=== PATIENT | male | born 1950 | race Caucasian/White ===

== ENCOUNTER → 2018-02-13 14:26 | Outpatient (CLI) | payer MEDICARE, SELFPAY ==
[2018-02-13 15:45] LABS: PSA,Total - Annual Screen 5.72 ng/mL (0.00-4.00)
== END ==
PROVIDERS: Family Provider Family Medicine; PCP Family Medicine; Referring Provider Nurse Practitioner Family; Visit Provider Nurse Practitioner Family
DX: Z12.5 Encounter for screening for malignant neoplasm of prostate (principal)
CPT/HCPCS: 36415; 84153; G0103

== ENCOUNTER → 2019-03-12 11:28 | Outpatient (CLI) | payer MEDICARE, SELFPAY ==
[2015-06-24 06:35] VITALS: BMI 33.7
[2019-03-12 13:28] LABS: Anion Gap 3 (5-15); BUN 18 mg/dL (7-18); BUN/Creat Ratio 16.8 RATIO (10-20); Calcium,Total 9.4 mg/dL (8.5-10.1); Chloride 106 mmol/L (98-107); Creatinine, Serum 1.07 mg/dL (0.70-1.30); EST Glomerular Filtration Rate 73 mL/min (>60); Est Glom Filt Rate - Afr Amer 88 mL/min (>60); Glucose 89 mg/dL (74-106); PSA,Total- Diagnostic 7.88 ng/mL (0.0-4.0); Potassium 4.1 mmol/L (3.5-5.1); Sodium Level 137 mmol/L (136-145)
== END ==
PROVIDERS: Family Provider Family Medicine; PCP Family Medicine; Referring Provider Urology; Visit Provider Urology
DX: N40.1 Benign prostatic hyperplasia with lower urinary tract symptoms (principal)
CPT/HCPCS: 36415; 80048; 84153

== ENCOUNTER → 2019-12-06 16:48 | Outpatient (CLI) | payer MEDICARE, SELFPAY ==
[2015-06-24 06:35] VITALS: BMI 33.7
== END ==
PROVIDERS: PCP Family Medicine; Referring Provider Nurse Practitioner Adult Health; Visit Provider Nurse Practitioner Adult Health
DX: R31.0 Gross hematuria (principal)
CPT/HCPCS: 87086

== ENCOUNTER → 2019-12-14 13:34 | Outpatient (CLI) | payer MEDICARE, SELFPAY ==
--- NOTE | 2019-12-14 13:42 | CT_ITS ---
STUDY: CT ABDOMEN AND PELVIS WITH AND WITHOUT CONTRAST REASON FOR EXAM: Male, 69 years old. Gross hematuria for 2 weeks RADIATION DOSAGE (If Supplied By Facility): CTDIvol = ( 25.83 ) mGy, DLP = ( 3972.41 ) mGycm TECHNIQUE: Transaxial images were obtained from the dome of the diaphragm to the symphysis pubis without oral contrast. IV 100mL Isovue-300 was administered. Sagittal and coronal images were reconstructed. Individualized dose optimization techniques were used for this CT. COMPARISON: None. FINDINGS: Kidneys and ureters are normal. There are no urinary calculi. There are minimal left renal central sinus cysts, these are benign and require no further clinical attention. Perirenal space is normal. There is mild bladder wall thickening, possibly in part due to nondistention. The prostate is heterogeneous and nodular. Perivesical spaces clear. Remainder of abdominal solid organs and bowel are normal. CT/CT Abd/Pelvis W/WO Contrast IMPRESSION: 1. Unremarkable upper urinary tract. 2. Mild bladder wall thickening. 3. Unremarkable abdomen. Electronically Signed: Edward Valderrama, at 14:31 EDT Tel , Service support ,
[2019-12-14 13:51] LABS: CREATININE FINGERSTICK 0.6 mg/dL (0.70-1.30)
== END ==
PROVIDERS: PCP Nurse Practitioner Family; Referring Provider Nurse Practitioner Adult Health; Visit Provider Nurse Practitioner Adult Health
DX: R31.0 Gross hematuria (principal)
CPT/HCPCS: 74178; Q9967

== ENCOUNTER → 2019-12-27 16:24 | Outpatient (CLI) | payer MEDICARE, SELFPAY ==
[2015-06-24 06:35] VITALS: BMI 33.7
--- NOTE | 2019-12-27 | FLU_PTH ---
PATIENT: RAMIRO LALA LOC: [facility] U#:[id number] AGE/SX: 75/M ROOM: RE12/27/[address]: Dr. Aneudy Santiago MD : 1950 BED: DIS: SPEC #: [id number] RECD: 12/27/19 15:00 STATUS: PAIGE BARBARA #: [id number] JOHANN: 12/27/19 00:[address]: Aneudy Santiago DEPT: CYTOLOGY RECD BY: Alla Aguayo ENTERED: 12/28/19 07:34 SP TYPE: Fluid OTHR DR: Aissatou Webster, INFORMATION ASSURANCE-C Tissues: Urine Procedures: Special Stain Group II Cytospin Fluid HEADER OPERATION: Not noted PRE-OP DIAGNOSIS: Gross hematuria TISSUE SUBMITTED: Urine for cytology DIAGNOSIS CYTOLOGY Urine for cytology (cytospin): Mildly atypical urothelial cells noted. SJ:santana 12/28/19 CYTOLOGY STUDY Slides are reviewed. CYTOLOGY GROSS Received is 35 ml of cloudy yellow fluid labeled with the patient's name and and designated per the requisition as urine. Submitted for cytology preparation. / santana 12/28/19 TC:3 CPT: 37250
[2019-12-27 17:00] LABS: Cytology, Body Fluid / CSF SEE PATHOLOGY REPORT
== END ==
PROVIDERS: PCP Nurse Practitioner Family; Referring Provider Urology; Visit Provider Urology
DX: R31.0 Gross hematuria (principal)
CPT/HCPCS: 88108; 88313

== ENCOUNTER → 2020-12-25 10:36 | Outpatient (CLI) | payer MEDICARE, SELFPAY | PROVIDERS: PCP Nurse Practitioner Family; Referring Provider Nurse Practitioner Adult Health; Visit Provider Nurse Practitioner Adult Health | DX: R97.20 Elevated prostate specific antigen [PSA] (principal); Z12.5 Encounter for screening for malignant neoplasm of prostate | CPT/HCPCS: 36415; 84153; G0103 ==

== ENCOUNTER → 2021-01-06 18:09 | Outpatient (CLI) | payer MEDICARE, SELFPAY ==
--- NOTE | 2021-01-06 | IMM_PTH ---
PATIENT: RAMIRO LALA LOC: [facility] U#:[id number] AGE/SX: 75/M ROOM: RE01/06/[address]: Dr. Aneudy Santiago MD : 1950 BED: DIS: SPEC #: [id number] RECD: 01/08/21 15:05 STATUS: PAIGE BARBARA #: [id number] JOHANN: 01/06/21 00:[address]: Aneudy Santiago DEPT: IMMUNOHISTOCHEMISTRY RECD BY: Nancy Graham ENTERED: 01/08/21 15:05 SP TYPE: IMMUNO OTHR DR: Aissatou Webster, MACHINE SIGN WRITER-C Tissues: A - PROSTATE RIGHT Procedures: P40 (add) 34BE12 (initial) PHYSICIAN & INSTITUTION [place] [id number] SPECIMEN INFORMATION: Tissue Source: A - Right prostate, apex, core biopsy Clinical Info: R97.20 Specimen Number: [id number] CPT code: 79722, 30269 METHODOLOGY: Deparaffinized sections of prefer/formalin-fixed tissue or PAP/DQ stained slides are incubated with monoclonal/polyclonal antibodies/oligonucleotide probes. Localization is made via biotin free immunoperoxidase method. Appropriate controls are performed and reacted as expected. Results on target cell population are indicated in the following table: RESULTS: ANTIBODY / CLONE RESULT Block A P40 (BC28) negative 34BE12 (34BE12) negative These tests were developed and their performance characteristics determined by [facility]. They may not have been cleared or approved by the U.S. Food and Drug Administration. The FDA has determined that such clearance or approval is not necessary. The above immunohistochemical/dualISH markers are ordered and reviewed by the Pathologist. INTERPRETATION: A. Right prostate, apex, core biopsy: Focal atypical small acinar proliferation. FRANCHESKA:santana 01/09/2021
--- NOTE | 2021-01-06 | PROSBIL_PTH ---
PATIENT: RAMIRO LALA LOC: [facility] U#:[id number] AGE/SX: 75/M ROOM: RE01/06/[address]: Dr. Aneudy Santiago MD : 1950 BED: DIS: SPEC #: [id number] RECD: 01/07/21 09:23 STATUS: PAIGE BARBARA #: [id number] JOHANN: 01/06/21 00:[address]: Aneudy Santiago DEPT: SURGICAL PATHOLOGY RECD BY: Maurice Pascual ENTERED: 01/07/21 09:24 SP TYPE: PROST BX MARY DR: Aissatou Webster, FARIBA-Gelacio Tissues: A - PROSTATE RIGHT B - PROSTATE RIGHT C - PROSTATE RIGHT D - PROSTATE LEFT E - PROSTATE LEFT F - PROSTATE LEFT Procedures: PROSTATE BX HEADER OPERATION: Prostate biopsy PRE-OP DIAGNOSIS: R97.20 TISSUE SUBMITTED: A - Right apex, B - Right mid, C - Right base, D - Left apex, E - Left mid, F - Left base MICROSCOPIC DIAGNOSIS A. Right prostate, apex, core biopsy: Focal atypical small acinar proliferation (SABIHA). Focal mild chronic inflammation and minimal acute inflammation. Focal calcifications. See comment. B. Right prostate, mid, core biopsy: Prostatic tissue, negative for malignancy. Moderate chronic inflammation. C. Right prostate, base, core biopsy: Prostatic tissue, negative for malignancy. Moderate chronic inflammation. D. Left prostate, apex, core biopsy: Prostatic tissue, predominantly stromal tissue, negative for malignancy. Focal mild chronic inflammation and minimal acute inflammation. E. Left prostate, mid, core biopsy: Prostatic tissue, negative for malignancy. Focal mild acute and chronic inflammation. Focal calcifications. See comment. F. Left prostate, base, core biopsy: Prostatic tissue, negative for malignancy. Moderate chronic inflammation and mild acute inflammation. Focal calcifications. See comment. SJ:rg 01/08/2021 COMMENT A. Immunohistochemistry ([id number]) supports the above diagnosis. A,E & F. Calcifications may represent prostatic concretions. Clinical correlation and appropriate follow up are necessary. MICROSCOPIC DESCRIPTION Slides are reviewed. GROSS DESCRIPTION A - Received is one container designated prostate, right apex. The specimen consists of two elongated fragments of light stevens-white soft tissue each measuring 0.8 cm in length and 0.1 cm in diameter. The specimen is totally submitted in one cassette. B - Received is one container designated prostate, right mid. The specimen consists of two elongated fragments of light stevens-white soft tissue each measuring 1 cm in length and 0.1 cm in diameter. The specimen is totally submitted in one cassette. C - Received is one container designated prostate, right base. The specimen consists of two elongated fragments of light stevens-white soft tissue each measuring 1.2 cm in length and 0.1 cm in diameter. The specimen is totally submitted in one cassette. D - Received is one container designated prostate, left apex. The specimen consists of two elongated fragments of light stevens-white soft tissue each measuring 0.2 cm in length and 0.1 cm in diameter. The specimen is totally submitted in one cassette. E - Received is one container designated prostate, left mid. The specimen consists of two elongated fragments of light stevens-white soft tissue measuring 0.5 and 1 cm in length and 0.1 cm in diameter. The specimen is totally submitted in one cassette. F - Received is one container designated prostate, left base. The specimen consists of two elongated fragments of light stevens-white soft tissue measuring 1 and 1.5 cm in length and 0.1 cm in diameter. The specimen is totally submitted in one cassette. / SJ:rg 01/07/21 TC:3 CPT: G0146
== END ==
PROVIDERS: PCP Nurse Practitioner Family; Visit Provider Urology
DX: R97.20 Elevated prostate specific antigen [PSA] (principal)
CPT/HCPCS: 88305; 88341; 88342; G0416

== ENCOUNTER → 2021-07-21 | Outpatient (CLI) | payer MEDICARE, SELFPAY | END | disposition home or self-care (01) | LOC: LAB 08:57 | PROVIDERS: PCP Nurse Practitioner Family; Referring Provider Urology; Visit Provider Urology | DX: R97.20 Elevated prostate specific antigen [PSA] (principal) | CPT/HCPCS: 36415; 84153 ==

== ENCOUNTER → 2021-08-05 | Outpatient (CLI) | payer MEDICARE, SELFPAY ==
--- NOTE | 2021-08-05 07:29 | MRI_ITS ---
STUDY: MR PELVIS WITH T WITHOUT CONTRAST REASON FOR EXAM: Male, 71 years old. ELEVATED PROSTATE SPECIFIC ANTIGEN TECHNIQUE: Standardized fat and water weighted pulse sequences were obtained in all 3 orthogonal planes, pre-and post contrast administration. WITH T WITHOUT 20cc dotarem contrast material was administered intravenously for the contrast portion of the examination. COMPARISON: ct Dec 14 2019 1:52pm FINDINGS: Normal urinary bladder. There are prostatic calcifications. Prostate gland: The anterior fibromuscular stroma and central zone appear heterogeneous. The central gland demonstrates heterogeneous signal characteristics. Enlarged prostate gland with a multi nodular appearance (BPH). There is a low T2 signal mass along the left peripheral zone with extension into the transitional zone. It is 21 x 24 mm. Se 5 IM: 13. This has high DWI signal. Se 7 IM: 70. It has a lobulated appearance and does NOT have a smooth border. There is extra norma extension to the left as noted on the T2 images 16 and DWI image 43. There is diffuse enhancement on Se 12 IM: 13. Lesion has low ADC signal. Se 701 IM:21. Rectum is unremarkable. Levator ani muscle is not disrupted. The distal urethra is surrounded by the low T2 signal intensity muscle which is the external urethral sphincter as noted on the coronal images. The penile bulb is embraced by an intact inferomedial levator ani muscle. Normal visualized neurovascular bundles. There is no pelvic fluid. There is no pelvic mass lesion or lymphadenopathy. Normal visualized pelvic arteries. Normal osseous structures. Normal abdominal wall. MRI/Pelvis W/WO Contrast IMPRESSION: There is a prostate mass of the left peripheral zone with extension into the transitional zone. There is extra norma extension to the left. Assessment: PIRADS 5 - Very high. Clinically significant cancer is highly likely to be present. Electronically Signed: Mauricio Rayo MD at 16:30 EDT ,
[2021-08-05 07:46] LABS: CREATININE FINGERSTICK < 0.9 mg/dL (0.70-1.30); EGFR FINGERSTICK > 60.0000 mL/min (>60)
== END | disposition home or self-care (01) ==
PROVIDERS: PCP Nurse Practitioner Family; Referring Provider Urology; Visit Provider Urology
DX: R97.20 Elevated prostate specific antigen [PSA] (principal)
CPT/HCPCS: 72197; A9575

== ENCOUNTER → 2021-08-13 | Outpatient (CLI) | payer MEDICARE, SELFPAY ==
--- NOTE | 2021-08-13 | PROSB_PTH ---
PATIENT: RAMIRO LALA LOC: [facility] U#:[id number] AGE/SX: 71/M ROOM: RE08/13/[address]: Dr. Aneudy Santiago MD : 1950 BED: DIS: 08/13/2021 SPEC #: [id number] RECD: 08/13/21 16:34 STATUS: PAIGE JIMENEZ #: [id number] JOHANN: 08/13/21 00:[address]: Aneudy Santiago DEPT: SURGICAL PATHOLOGY RECD BY: Maurice Pascual ENTERED: 08/14/21 08:15 SP TYPE: PROST BX OTHR DR: Aissatou Webster, COMPLIANCE EXAMINER-C Tissues: A - PROSTATE BIOPSY B - PROSTATE BIOPSY C - PROSTATE BIOPSY Procedures: Surgery Specimen Level IV HEADER OPERATION: Prostate biopsy PRE-OP DIAGNOSIS: Elevated PSA TISSUE SUBMITTED: A - Left apex, B - Left mid, C - Left base MICROSCOPIC DIAGNOSIS A. Left prostate, apex, core biopsy: Prostatic adenocarcinoma. [place] grade: 3+3=6 Number of cores involved: 1/3 Proportion of tissue involved: 30% Perineural invasion: Not identified. Greatest tumor length: 0.5 cm B. Left prostate, mid, core biopsy: Prostatic adenocarcinoma. [place] grade: 3+4=7 Number of cores involved: 3/4 Proportion of tissue involved: 50-60% Perineural invasion: present, focal Greatest tumor length: 1.3 cm Mild acute and chronic inflammation and focal calcification. C. Left prostate, base, core biopsy: Prostatic adenocarcinoma. [place] grade: 3+4=7 Number of cores involved: 1/2 Proportion of tissue involved: 30% Perineural invasion: Not identified. Greatest tumor length: 0.7 cm Focal acute and chronic inflammation and calcification. SJ:santana 08/17/2021 COMMENT Please make reference to previous specimen ([id number]) right prostate, apex, core biopsy with diagnosis of ?focal atypical small acinar proliferation? and right prostate, mid and base and left prostate, apex, mid and base core biopsies with diagnosis of ?prostatic tissue, negative for malignancy.? Case has been reviewed in consultation with Dr. Mabry who concurs with the above diagnosis. IDC:AM MICROSCOPIC DESCRIPTION Slides are reviewed. GROSS DESCRIPTION A - Received is one container designated prostate, left apex. The specimen consists of three elongated fragments of stevens soft tissue measuring 0.5 to 0.6 cm in length and 0.1 cm in diameter. The specimen is totally submitted in one cassette. B - Received is one container designated prostate, left mid. The specimen consists of four elongated fragments of stevens soft tissue measuring 1 to 1.5 cm in length and 0.1 cm in diameter. The specimen is totally submitted in one cassette. C - Received is one container designated prostate, left base. The specimen consists of two elongated fragments of stevens soft tissue measuring 1.6 and 1.8 cm in length and 0.1 cm in diameter. The specimen is totally submitted in one cassette. / SJ:rg 08/14/2021 TC:0 CPT: G0146
== END | disposition home or self-care (01) ==
LOC: LABSPEC 16:40
PROVIDERS: PCP Nurse Practitioner Family; Referring Provider Urology; Visit Provider Urology
DX: R97.20 Elevated prostate specific antigen [PSA] (principal)
CPT/HCPCS: 88305

== ENCOUNTER → 2021-09-02 | Outpatient (CLI) | payer MEDICARE, SELFPAY ==
--- NOTE | 2021-09-02 07:47 | NM_ITS ---
CLINICAL: Male, 71 years old. MALIGNANT NEOPLASM OF PROTASTE WHOLE BODY NUCLEAR BONE SCAN TECHNIQUE: Following the IV administration of 26.8 mCi of Tc MDP, whole body bone imaging was performed with a gamma camera following a three hour delay. COMPARISON STUDIES : NM - None. CR - Not available for review at this time. CT - Not available for review at this time. MR - Not available for review at this time. US - Not available for review at this time. FINDINGS: There is a normal concentration of radiopharmaceutical throughout the axial and appendicular skeletal system without either a focal decrease or increase in uptake. NM/Bone Scan Whole Body IMPRESSION: Normal whole body nuclear bone scan. Electronically Signed: Clement Rios MD at 16:41 EDT ,
== END | disposition home or self-care (01) ==
LOC: NM 07:45
PROVIDERS: PCP Nurse Practitioner Family; Referring Provider Urology; Visit Provider Urology
DX: C61 Malignant neoplasm of prostate (principal)
CPT/HCPCS: 78306; A9503

== ENCOUNTER → 2021-09-23 | Outpatient (CLI) | payer MEDICARE, SELFPAY ==
--- NOTE | 2021-09-23 06:50 | EKG12_ITS ---
Test Reason : PRE OP Blood Pressure : / mmHG Vent. Rate : 081 BPM Atrial Rate : 258 BPM P-R Int : 000 ms QRS Dur : 092 ms QT Int : 376 ms P-R-T Axes : 000 033 079 degrees QTc Int : 436 ms Atrial fibrillation Abnormal ECG Confirmed by TRAVIS NARVAEZ, FAVIAN ([id number]), proposal editor LIONEL BAILEY ([id number]) on 09/25/2021 8:01:54 AM Referred By: Aneudy Santiago Confirmed By:FAVIAN ROBLES MD
[2021-09-23 07:31] LABS: Hemoglobin 13.8 g/dL (13.0-16.5); Mean Corp Hgb Conc 32.1 g/dL (32-36); Mean Corpuscular Hgb 27.4 pg (27.0-32.0); Mean Corpuscular Volume 85.5 fL (80-94); Mean Platelet Vol. 11.9 fl (6.2-12.0); Platelet Count 186 K/mm3 (150-450); RBC Distribution Width CV 13.7 % (11.6-14.6); RBC Distribution Width SD 42.5 fl (35.1-43.9); Red Blood Count 5.03 M/mm3 (4.6-6.2); White Blood Count 5.5 K/mm3 (4.4-11.0)
== END | disposition home or self-care (01) ==
LOC: PAT 10-16 08:23
PROVIDERS: Anesthesiology; PCP Nurse Practitioner Family; Referring Provider Urology; Visit Provider Urology
DX: Z01.818 Encounter for other preprocedural examination (principal)
CPT/HCPCS: 36415; 85027; 86850; 86900; 86901; 93005

== ENCOUNTER → 2021-09-29 | Outpatient (CLI) | payer MEDICARE, SELFPAY ==
--- NOTE | 2021-09-29 10:40 | ECHOD_ITS ---
Reason For Study: ATRIAL FIB FLUTTER Procedure This was a 2D Doppler, Color Flow transthoracic echocardiogram. Exam performed in department. Left Ventricle Normal LV size. Left ventricular systolic function is normal. The estimated ejection fraction is 60 %. Unable to assess diastolic dysfunction. No regional wall motion abnormalities noted. Right Ventricle Normal RV size. Normal systolic function. Atria The left atrium is moderately enlarged. The right atrium is mildly enlarged. No doppler evidence for ASD. Mitral Valve There is no mitral annular calcification. Normal mitral valve. Moderate (2+) eccentric mitral valve insufficiency. Tricuspid Valve Normal tricuspid valve. Trivial tricuspid valve insufficiency. Unable to estimate RV systolic pressure due to insufficient tricuspid regurgitant envelope. Aortic Valve Trisinus/trileaflet aortic valve. Normal aortic valve. Trivial aortic valve insufficiency. Pulmonic Valve The pulmonic valve is not well visualized. Great Vessels Normal sized aortic root. Pericardium/Pleural No pericardial effusion. MMode/2D Measurements & Calculations LVIDd: 4.6 cm IVSd: 1.1 cm Ao root diam: 3.4 cm LVIDs: 3.7 cm LVPWd: 1.5 cm RVDd: 4.3 cm FS: 20.4 % LAV(MOD-sp4): 84.1 ml LVAd ap4: 35.9 cm2 SV(MOD-sp4): 81.7 ml LVLd ap4: 8.5 cm EDV(MOD-sp4): 126.9 ml EDV(sp4-el): 129.2 ml LVAs ap4: 18.8 cm2 LVLs ap4: 6.8 cm ESV(MOD-sp4): 45.2 ml ESV(sp4-el): 43.8 ml EF(MOD-sp4): 64.4 % EF(sp4-el): 66.1 % SV(sp4-el): 85.4 ml LA A4 area: 27.5 cm2 LA dimension(2D): 4.6 cm RA A4 area: 22.6 cm2 Doppler Measurements & Calculations MV E max wally: 85.8 cm/sec Ao V2 max: 101.1 cm/sec LV V1 max: 96.3 cm/sec Ao max P.1 mmHg LV V1 max P.7 mmHg Ao V2 mean: 74.8 cm/sec LV V1 mean P.3 mmHg Ao mean P.6 mmHg LV V1 mean: 72.2 cm/sec Ao V2 VTI: 20.4 cm LV V1 VTI: 20.2 cm MR max wally: 515.2 cm/sec PA V2 max: 77.5 cm/sec MR max P.2 mmHg PA V2 mean: 54.6 cm/sec ECHO/Echo Complete Interpretation Summary Left ventricular systolic function is normal. The estimated ejection fraction is 60 %. The left atrium is moderately enlarged. The right atrium is mildly enlarged. Moderate (2+) eccentric mitral valve insufficiency. Trivial tricuspid valve insufficiency. Trivial aortic valve insufficiency. Unable to estimate RV systolic pressure due to insufficient tricuspid regurgita nt envelope. Unable to assess diastolic dysfunction. Ordering Physician: Helio Lopez Referring Physician: Helio Lopez Performed By: Melba Vazquez RCS
== END | disposition home or self-care (01) ==
PROVIDERS: PCP Nurse Practitioner Family; Referring Provider Internal Medicine Cardiovascular Disease; Visit Provider Internal Medicine Cardiovascular Disease
DX: Z01.810 Encounter for preprocedural cardiovascular examination (principal); I48.91 Unspecified atrial fibrillation; R94.31 Abnormal electrocardiogram [ECG] [EKG]
CPT/HCPCS: 93306

== ENCOUNTER → 2021-10-15 | Outpatient (CLI) | payer MEDICARE, SELFPAY ==
--- NOTE | 2021-10-15 18:15 | STRESSREP_ITS ---
Stress Test Report Date: 10-15-2021 Procedure: Exercise tolerance test Indications: Atrial fibrillation; PVCs; hypertension; preoperative cardiovascular evaluation Consent: Per the patient Procedure: The patient exercised on a Ramírez protocol for 7 minutes and 15 seconds completing Stage II and 1 minute and 15 seconds of Stage III achieving a peak heart rate of 184 bpm (124% predicted maximal heart rate) with a peak blood pressure 190/100 mmHg and a peak MET capacity of approximately 9 MET's. The baseline ECG demonstrated atrial fibrillation; PVCs. The peak exercise ECG demonstrated continued atrial fibrillation with no obvious ECG changes. There were occasional PVCs pretest, during exercise, and recovery. The functional capacity was considered good. The patient had no complaint of chest discomfort during exercise or recovery. The examination was discontinued secondary to dyspnea. Impression: 1. Technically adequate (percent predicted maximal heart rate greater than 85%) exercise tolerance test 2. Peak exercise ECG with continued atrial fibrillation with no obvious ECG changes 3. There were occasional PVCs pretest, during exercise, and recovery This note was generated with [employer] dictation software. It may contain incorrect words, spelling, and punctuation that were not noted in checking the note before signing.
== END | disposition home or self-care (01) ==
LOC: CVS 08:06
PROVIDERS: PCP Nurse Practitioner Family; Referring Provider Internal Medicine Cardiovascular Disease; Visit Provider Internal Medicine Cardiovascular Disease
DX: Z01.810 Encounter for preprocedural cardiovascular examination (principal); I48.91 Unspecified atrial fibrillation; I49.3 Ventricular premature depolarization; I10 Essential (primary) hypertension; R94.31 Abnormal electrocardiogram [ECG] [EKG]
CPT/HCPCS: 93017; 93225; 93226

== ENCOUNTER 2021-12-18 07:54 | Observation (INO) | payer MEDICARE, SELFPAY ==
[2021-12-14 10:34] LABS: Hematocrit 45.4 % (40-54); Mean Corpuscular Volume 84.7 fL (80-94); Mean Platelet Vol. 11.3 fl (6.2-12.0); Platelet Count 199 K/mm3 (150-450); RBC Distribution Width CV 14.2 % (11.6-14.6); RBC Distribution Width SD 43.5 fl (35.1-43.9); Red Blood Count 5.36 M/mm3 (4.6-6.2); White Blood Count 6.4 K/mm3 (4.4-11.0)
[2021-12-14 11:19] LABS: Anion Gap 7 (5-15); BUN 13 mg/dL (7-18); BUN/Creat Ratio 15.3 RATIO (10-20); Calcium,Total 9.4 mg/dL (8.5-10.1); Chloride 105 mmol/L (98-107); Creatinine, Serum 0.85 mg/dL (0.70-1.30); EST Glomerular Filtration Rate 94 mL/min (>60); Est Glom Filt Rate - Afr Amer 114 mL/min (>60); Glucose 84 mg/dL (74-106); Potassium 4.3 mmol/L (3.5-5.1); Sodium Level 138 mmol/L (136-145)
[2021-12-18] VITALS (14 sets, daily range): BP systolic 95–119; BP diastolic 55–70; PULSE 48–62; RESP 14–18; TEMP 36.1–36.6; O2SAT 91–100; BMI 33.1; BMI 35.0
--- NOTE | 2021-12-18 | PROST_PTH ---
PATIENT: RAMIRO LALA LOC: MS3 U#:[id number] AGE/SX: 71/M ROOM: CA318 RE12/18/[address]: Dr. Aneudy Santiago MD : 1950 BED: 1 DIS: 12/20/2021 SPEC #: [id number] RECD: 12/18/21 15:22 STATUS: PAIGE KOHELERCaro #: [id number] JOHANN: 12/18/21 00:[address]: Aneudy Santiago DEPT: SURGICAL PATHOLOGY RECD BY: Maurice Pascual ENTERED: 12/21/21 09:58 SP TYPE: PROSTATE OTHR DR: Aissatou Webster, BALLOON DESIGN PRINTER-C Tissues: A - Lymph node of pelvis, NOS B - Lymph node of pelvis, NOS C - Adipose tissue D - Prostate, NOS Procedures: Surgery Specimen Level IV Surgery Specimen Level V Surgery Specimen Level HEADER OPERATION: Lap robotic radical prostatectomy, nerve monitoring PRE-OP DIAGNOSIS: Malignant neoplasm of prostate, elevated PSA TISSUE SUBMITTED: A - Left pelvic lymph node, B - Right pelvic lymph node, C - Fat over prostate, D - Prostate MICROSCOPIC DIAGNOSIS A. Left pelvic lymph node, biopsy: Four out of four lymph nodes, negative for metastatic carcinoma. B. Right pelvic lymph node, biopsy: Three out of three lymph nodes, negative for metastatic carcinoma. C. Fat over prostate: Negative for carcinoma. D. Prostate, radical prostatectomy: Prostatic adenocarcinoma. See cancer summary in the comment section. AM:santana 12/23/2021 COMMENT D. PROSTATE CANCER (RADICAL) SUMMARY: Procedure: Radical Prostatectomy Prostate Size: Weight: 107 gm Size: 6 cm transversely, 4.5 cm anterior-posteriorly and 5.5 cm craniocaudally Histologic Type: Acinar adenocarcinoma Histologic Grade: Wing grade group 2 ([place] score 3+4=7) Tertiary Pattern: 5 Percentage of pattern 5: ~10% Tumor Quantitation: ~20% of prostate involved by tumor. The tumor involves both right and left, predominantly left lobe. The tumor is present in the apical portion of the right lobe and measures 1 x 0.3 cm, measured microscopically. The tumor is present in the apical, mid and basal portion prostate of the left lobe and measures approximately around 4 x 2 x 1.2 cm, measured microscopically. Extraprostatic Extension: Present Location of extraprostatic extension: Left, posterolateral (measures ~ 1.5 cm in greatest dimension). Urinary Bladder Neck Invasion: Present. Seminal Vesicle Invasion: Present, left (measures 0.6 x 0.4 cm, measured microscopically) Lymphvascular Invasion: Not identified Perineural Invasion: Present, frequent. Margins: Margins involved of invasive carcinoma. Extent of positive margin - 0.7 x 0.5 cm and 0.5 x 0.4 cm Focality: Two foci Location of positive margin: Bladder base margin, left side Margin positivity in area of extraprostatic extension: Not identified [place] pattern at positive margin: 3+4=7 Treatment effect: No known presurgical therapy. Regional Lymph Nodes: Number of lymph nodes involved by carcinoma: 0 Total number of lymph nodes examined: 7 Additional Pathologic Findings: Focal high-grade prostatic intraepithelial neoplasia (HGPIN). - Marked benign prostatic hyperplasia. - Acute and chronic inflammation. - Multiple stones throughout the whole prostate. Sections also shows ripped artifacts due to the presence of stones. Ancillary studies: Not performed Clinical history: Please make reference to previous specimens ([id number]) left prostate, apex, mid and base, core biopsies with diagnosis of ?prostatic adenocarcinoma? and ([id number]) right prostate, apex, core biopsy with diagnosis of ?focal atypical small acinar proliferation? and right prostate, mid and base and left prostate, apex, mid and base, core biopsies with diagnosis of ?prostatic tissue, negative for malignancy.? PATHOLOGIC STAGE: pT3b pN0 pMx The above summary is in compliance with [employer] [place] [employer] (CAP) Cancer Protocols Checklist and [place] [employer] on Cancer (AJCC), Staging Manual, 8th Ed. Case has been reviewed in consultation with Dr. Mabry who concurs with the above diagnosis. IDC:AM MICROSCOPIC DESCRIPTION Slides are reviewed. GROSS DESCRIPTION A - Received in fixative is one container labeled with the patient's name and designated left pelvic lymph node. The specimen consists of two pieces of yellow adipose tissue containing nodules consistent with lymph nodes measuring in aggregate 4.5 x 3 x 2 cm. The nodules consistent with lymph nodes are identified measuring 1 to 3 cm in greatest dimension. The entire specimen is submitted in four cassettes as follows: 1 & 2 - largest lymph node, 3 - one bisected lymph node, 4 - rest of the specimen including possible lymph nodes. / :rg 12/21/2021 B - Received in fixative is one container labeled with the patient's name and designated right pelvic lymph node. The specimen consists of a piece of yellow adipose tissue containing nodule consistent with lymph nodes measuring 4 x 2.5 x 1.5 cm. Two nodules, lymph nodes, are identified measuring 1.5 and 2.5 cm in greatest dimension. The entire specimen is submitted in four cassettes as follows: 1 & 2 - one bisected lymph node, 3 - one bisected lymph node, 4 - rest of the specimen including possible lymph nodes. / :rg 12/21/2021 C - Received in fixative is one container labeled with the patient's name and designated fat over prostate. The specimen consists of two pieces of adipose tissue measuring in aggregate 5 x 3.5 x 0.5 cm. No mass lesion is identified. Review Trainer tissue is submitted in one cassette. / SJ:rg 12/21/2021 D - Received in fixative is one container labeled with the patient's name and designated prostate. The specimen consists of a radical prostatectomy specimen consisting of prostate and portion of right and left seminal vesicles and right and left vas deferens. The specimen weighs 107 gm and measures 6 cm transversely, 4.5 cm anterior-posteriorly and 5.5 cm craniocaudally. Portion of right seminal vesicle measures 1 x 1 x 0.3 cm and right vas deferens measures 1.5 cm in length and 0.5 cm in diameter. The portion of possible left seminal vesicle measures 1.5 x 1 x 0.3 cm and the left vas deferens measures 3.5 cm in length and 0.5 cm in diameter. The prostate is inked as follows: anterior surface - yellow, posterior surface - black, right lateral surface - blue, left lateral surface - green. The bilateral seminal vesicles and vas deferens are inked as follows: Posterior surface bilateral seminal vesicle and vas deferens - black, anterior surface right seminal vesicle and vas deferens - blue and anterior left seminal vesicle and vas deferens - green. Sections of the prostate do not reveal any obvious mass lesion. Multiple brown stones are noted through the whole prostate measuring 0.1 to 0.5 cm in greatest dimension. Review Trainer sections are submitted in 22 cassettes as follows: 1 - right seminal vesicle and vas deferens, entire seminal vesicle portion is submitted, 2 - left seminal vesicle and vas deferens, entire seminal vesicle portion is submitted, 3 - apical margin, enface, 4 & 5 - bladder base and basal portion of prostate margin, enface, 6-11 - apical portion prostate, 12-15 - middle portion prostate, 16-22 - basal portion prostate. Sections are submitted after additional fixation. / FRANCHESKA:santana 12/21/2021 TC:0 CPT:12143, 12351 x2, [id number]
[2021-12-18] MEDS: Lactated Ringers 1,000 ML 15 ML IV ×5 (06:07→16:21)
[2021-12-18] MEDS: Cefazolin 2 GM in 0.9% Normal Saline 100 ML IV (07:34)
--- NOTE | 2021-12-18 07:54 | HP.PCM_ITS ---
HPI - General General Date of Service: 12/18/21 HPI Narrative RAMIRO LALA, is a 71 M who presents for a radical prostatectomy, has prostate cancer, plan to do nerve sparing as possible. [facility] Medical History (Updated 12/18/21 @ 07:[address] Aneudy Santiago MD) Cancer Cardiology follow-up encounter Chronic cough Essential hypertension History of echocardiogram History of Holter monitoring History of left heart catheterization (LHC) (~04/12/01) History of stress test Migraine headache New onset atrial fibrillation Non-smoker Prostate disease Home Medications apixaban 5 mg tablet (Eliquis) 5 mg PO BID blood thinner 12/18/21 [History Last Taken 12/14/21 18:00] ciprofloxacin HCl 500 mg tablet (Cipro) 500 mg PO BID #20 tabs 12/18/21 [Rx Last Taken Unknown] docusate sodium 100 mg capsule (Colace) 100 mg PO BID #20 caps 12/18/21 [Rx Last Taken Unknown] metoprolol tartrate 50 mg tablet 25 mg PO BID heart 12/18/21 [History Last Taken 12/18/21 04:30] oxycodone-acetaminophen 5 mg-325 mg tablet 1 tab PO Q6H PRN pain 7 days #14 tabs 12/18/21 [Rx Last Taken Unknown] Allergy/AdvReac Type Severity Reaction Status Date / Time No Known Allergies Allergy Verified 12/18/21 05:50 Family History Mother Hypertension Cancer Father Hypertension Surgical History History of cystoscopy History of tonsillectomy and adenoidectomy Hx of colonoscopy Hx of hand surgery Hx of umbilical hernia repair Hx of vasectomy Social History Smoking Status: Never smoker alcohol intake: never substance use type: does not use caffeine: Yes Type: coffee Number of servings: 2 Vital Signs Vital Signs Vital Signs: 12/18/21 05:52 12/18/21 05:55 Temperature 97.3 F L Temperature Source Temporal Pulse Rate 48 L Respiratory Rate 18 Respiratory Pattern Irregular Blood Pressure 119/70 Blood Pressure Mean 86 Blood Pressure Source Monitor Blood Pressure Position Semi-Fowlers Blood Pressure Location Right Arm Pulse Ox 98 Oxygen Delivery Method Room Air Weight Weight: 110.858 kg Body Mass Index (BMI) 33.1 Results Lab / Micro Data Result Diagrams: 12/14/21 10:12 12/14/21 10:12
--- NOTE | 2021-12-18 07:55 | PCM.DC ---
Discharge Instructions Diet Discharge Diet: No restrictions, Light diet - advance as tolerated and Soft diet Activity Discharge Activity: May Not Drive and May Shower Dressing / Incision Cleanse incision/area with: Soap & Water Follow Up Care Please Follow Up With: Aneudy Santiago MD When: follow up in 14 days to remove uribe Test Results: Test results from this visit will be discussed in further detail at your follow-up appointment, if applicable. Discharge Plan Admission Primary Reason for Your Visit: Radical Prostatectomy Attending Provider: Aneudy Santiago Primary Care Provider: Aissatou Webster NP Instructions Patient Instructions: Radical Prostatectomy Dc Discharge Orders/Prescriptions Prescriptions: New ciprofloxacin HCl [Cipro] 500 mg tablet 500 mg PO BID Qty: 20 0RF docusate sodium [Colace] 100 mg capsule 100 mg PO BID Qty: 20 0RF oxycodone-acetaminophen 5-325 mg tablet 1 tab PO Q6H PRN (Reason: pain) 7 Days Qty: 14 0RF Continued metoprolol tartrate 50 mg tablet 25 mg PO BID Held Eliquis 5 mg tablet 5 mg PO BID Hold Instructions: Resume on 01/01/22. Referrals / Follow Up: Aneudy Santiago MD [Med Staff - Active Staff] - Aissatou Webster NP, MANUFACTURING TECHNICIAN-C [Primary Care Provider] - Disposition Disposition (needs filled in before D/C Order can be placed): Home, Self Care
--- NOTE | 2021-12-18 13:51 | PCM.OPRPT ---
Report of Operation Date of Procedure: 12/18/21 Pre-Operative Diagnosis: Prostate cancer, elevated PSA, frequency urgency Post-Operative Diagnosis: Same Surgery/Procedure Performed:: Laparoscopic robotic assisted radical prostatectomy, suture suspension of the urethra, pelvic nerve monitoring EMG, bilateral pelvic lymph node dissection. Description of Surgical Findings:: Patient presented to the hospital for treatment of his prostate cancer with radical prostatectomy. In the preoperative setting we discussed the options of management for his prostate cancer including active surveillance, radiation treatments, radioactive seeds, and radical robotic prostatectomy. We discussed the side effects of surgery including the potential to lose erections. We discussed the potential to have bladder control problems with stress incontinence which can be temporary or permanent. We discussed the risk of the surgery including the risk of general anesthetic, risk of bleeding, risk of infection, and risk of formation of hernia either incisional hernia or inguinal hernia. After long discussion with the patient the preoperative setting and also reviewed this in the preop area patient signed the consent form and we proceeded with a radical prostatectomy. Patient was taken back to the operating room he was identified, time out procedure was performed and he was placed supine on the table he underwent general anesthesia with intubation. The abdomen was shaved prepped and draped in usual sterile fashion as well as the penis and testicles. A 16 [place] catheter was placed into the bladder with clear return of urine. I then made an incision in the umbilicus and dissected down to the fascia advance a Veress needle into the peritoneal cavity and insufflated the peritoneal cavity with CO2 gas. I then placed a 12 mm trocar above the umbilicus. I then visualized the placement of the rest of the trochars, I placed a right arm robotic trocar, and air seal trocar, a suction port 5 mm trocar. And on the left side I placed 2 robotic arms. Once all the trochars were in placed the patient was put in steep Trendelenburg. And the robot was docked the arms were docked and then I placed the 0 degree camera through the robotic arm and also used a 30 degree camera during certain parts of the case. I used scissors in the right arm, prograsp in the third arm, and a bipolar in the second arm. Initial dissection was to free the sigmoid colon off the lateral wall this was done by meticulously dissecting off the peritoneum and the sigmoid colon off the left lateral wall. This then allowed the prograsp to retract the sigmoid colon out of the pelvis. I then went below the bladder and identified the vas deferens incised the peritoneum over the vas deferens and traced the vas deferens below the bladder to the prostate and identified the right and left vasa deferens. Below behind the vas deferens then the seminal vesicles were identified. I then dissected the seminal vesicle free using pinpoint electrocautery and then we identified the other seminal vesicle and then dissected this using pinpoint electrocautery I then elevated the vas deferens and several vesicles off the prostate and was able to sweep the Denonvilliers' fascia off the prostate posteriorly all the way up to the apex of the prostate. Working laterally I made sure I went as lateral as possible to sweep the Denonilliers' fascia off the posterior aspect of the prostate and worked my way back, I then transected the vas deferens and the left and right side the seminal vesicles were then dissected free. And then I pulled out of the pelvis. At this point the bladder was dropped creating the space of Retzius with the bladder on traction with the fourth arm. Using electrocautery I dissected in the anterior peritoneal fascia and then created the space of Retzius dissecting towards the prostate. The pelvic lymph node dissection was then performed both on the left and the right pelvic lymph nodes the nodes that were taken on the right side extended from the right iliac artery lateral pelvic sidewall up to the junction of the artery and the lymph nodes and down to the obturator nerve and then also below the tube sizer and cutter operator nerve all the lymph nodes were removed during to remove those lymph nodes we used clips and electrocautery to control small blood vessels and also the control lymphatic. I then went to the left side and again did an extensive lymph node dissection starting of the left iliac artery extending the left iliac vein on the lateral sidewall down to the obturator nerve and the left side beyond the tube sizer and cutter operator nerve down further behind it cleaning out all the lymphatic tissue all this tissue was sent off as a specimen we use clips and electrocautery during the dissection. At the end we cleaned out all the lymphatic tissue on the right pelvic wall and no lymphatic tissue in the left pelvic wall. The prostate was then cleaned of the fat over the prostate and the fourth arm was used to retract the bladder and place traction. I then identified the endopelvic fascia that was overlying the prostate on the right side I incised endopelvic fascia and wwept the levator muscles off the prostate all the way to the apex on the right side, I then worked my way anterior to the prostate then transected to the puboprostatic ligament and the underlying dorsal vein complex was not injured. I then went to the other side and identified the endopelvic fascia in the left side incised in a fashion the left side and swept the levator muscles off the prostate on the left side all the way up to the apex the puboprostatic ligament on the left side was then dissected and transected I then freed up the fascia overlying the dorsal vein complex. I then used the prograsp to encircled the dorsal vein complex with the prograsp and then switched over to the right and left needle driver material handler and suture ligated the dorsal vein complex above the prograsp. The prograsp was then placed back in the bladder and put back on traction I then identified the junction between the bladder and the prostate and dissected down between the bladder and the prostate untilI came across the catheter we then dissected posteriorly to the bladder and prostate to free the prostate and the bladder off each other and the muscles between the bladder and the prostate was then cauterized to free up the bladder. Then at this point the EMG electrodes were placed through a separate needle puncture through the middle abdomen placed the right electrode in the right pelvic lateral wall and the left electrode the left pelvic lateral wall I then used the bipolar with stimulation to identify the nerve bundles and pudendal nerve branches both on the right and left side tracing these against the pelvic sidewall this was done to identify the location of these nerve bundles after this was accomplished then I proceeded with the dissection further. I then went on top of the prostate and identified the endopelvic fascia on top of the prostate this was incised all the way to the apex and then we swept the endopelvic fascia off the prostate laterally and then identified the plane between endopelvic fascia and the prosthetic pseudocapsule and swept the fascia laterally until reaching the course of the neurovascular bundles and then released the neurovascular bundles off the prostate laterally all the way back in a retrograde fashion back to the junction of the pedicles then the prostate was placed on traction with the fourth arm pulling the prostate laterally identified the pedicle to the prostate between the seminal vesicles and the and the neurovascular bundle and this was taken using sequential small hemolocks. After the pedicle was taken the I then dissected underneath the prostate sweeping the neurovascular bundle off the prostate we able to follow the nice smooth plane between the neurovascular bundle and the pseudocapsule all the way to the apex once this was identified we swept this up all the way up to the apex and there was perfect nerve sparing on the right side. Then went to the left side the prostate identified the endopelvic fascia over the left side of the prostate I incised the endopelvic fascia all the way to the apex and then swept this off laterally I then released the neurovascular bundles on the left side of the prostate sweeping him off the prostate laterally I then elevated the prostate up up with the prostate and traction identified the pedicle to the prostate on the left side and then the pedicles taken with sequential Hem-o-vitor clips I then was able to dissected the neurovascular bundle off the left posterior aspect the prostate this was a perfect dissection all the way up on the left side following the pseudocapsule all the way up the left side until we reached the apex of the prostate. After the both the neurovascular bundles has been swept off the posterior to the prostate. Once the nerve bundles were dissected off both sides then I went back to the EMG electrodes and retraced those electrodes checking the stimulation on both sides and there was good action potential both the left side and the right side confirming confirmation that the nerve bundles had been spared on both sides, maintaining EMG potential. At this point the electrodes were removed and were handed off and we continued with the dissection. I then went above and transected the dorsal vein complex there was minimal to no bleeding but then dissected down to the urethra and circumfencial dissected around the urethra I then switched the right and left arm with the needle drivers and I suture-ligated the dorsal vein complex again just to ensure that there was no bleeding from the dorsal vein complex. I then transected through the urethra with scissors and the prostate was then freed and released off the prostate bed and put an Endo Catch bag. At this point the bladder neck was reconstructed and then an anastomosis was performed between the prostate and the bladder with a 3 oh V-Loc stitch in a running fashion starting from the bladder neck at the 6 o'clock position working to the 12 o'clock position with continuous stitches to complete the anastomosis. We then placed a new catheter into the bladder however it went posterior to the new anastomosis and on inspection we rolled the bladder over and we found that there was a significant gap on the posterior side at the posterior plate had not reached the urethra and therefore the anastomosis was incomplete . I decided to then take down the stitches and had to redo the bladder neck and then had to redo the entire anastomosis again starting at the 6 o'clock position bringing back the posterior plate of the bladder to the urethra this time ensure that there was a good seal between the both and then ran the stitches both the left side and the right side to complete the anastomosis in the supra suspension of the urethra was then completed as well. After completing anastomosis and the suspension of the urethra then a new catheter was placed into the bladder and this time it went into the bladder we flushed and there was a nice filling in the bladder and confirmed the location of the catheter there was a small gap on the patient's right side of the anastomosis and at the put an extra stitch in that small gap to control an opening between the anastomosis once his gap was closed then there was only very minor leakage and I was happy with anastomosis finally. I flushed the bladder and there was no leakage from the anastomosis I put 10 cc in the balloon and pulled it up pulled back gently. I then ensured that there was no bleeding from the dorsal vein complex no bleeding from the neurovascular bundles FloSeal was placed as necessary once hemostasis was ensured and adequate then I placed the bladder back in position in the pelvis the prostate was exchanged to the camera port I closed the air seal port with a 10 12 Pepe Yu stitch. And the extracted the prostate through the umbilicus. We left a drain into the fourth port because of the redoing of the anastomosis and also because there was a small leak without significant and we left the JAMES drain to control any possible urine leak around anastomosis since it was not a perfect connection and there was a small leak but should heal with the drain in place. The robot was undocked all the ports were removed under direct visualization then closed the extraction site with 0 Vicryl with a CT1 needle once the extraction site was closed. I then closed all the incision with subcuticular stitches with 4-0 Monocryl and then bandages were placed on the incisions catheter was flushed to make sure it was draining well there was no clots and it was crystal clear patient's anesthetic was reversed he was extubated and taken back to the PACU in stable condition all the needles and sponges and instruments were accounted for. Blood loss was minimal and the drain was a 18 Tu[place] Uribe catheter. No other surgical drain was left. I was present during the entire case. Surgeon: Aneudy Santiago Type of Anesthesia: General Drains: 18 fr uribe Estimated Blood Loss (mL): 500 Admit VTE Documentation VTE Present on Admission: No VTE Mechan Device Prophylaxis: SCD's VTE Pharm Prophylaxis ordered?: No
[2021-12-18] MEDS: Morphine 2 MG/ML Syringe 1 MG IV ×2 (16:38→20:10)
[2021-12-18] MEDS: Ciprofloxacin 400 MG/200 ML BAG 200 MG IV (16:48)
[2021-12-18] MEDS: Metoprolol Tartrate 25 MG Tablet PO (21:52)
[2021-12-18] MEDS: Docusate Sodium 100 MG Capsule 200 MG PO (21:52)
[2021-12-19] VITALS (9 sets, daily range): BP systolic 101–147; BP diastolic 58–71; PULSE 62–88; RESP 18; TEMP 36.6–37.2; O2SAT 91–97
[2021-12-19] MEDS: Acetaminophen 325 MG Tablet PO (00:06)
[2021-12-19] MEDS: Lactated Ringers 1,000 ML 125 ML IV (00:13)
[2021-12-19] MEDS: Ciprofloxacin 400 MG/200 ML BAG 200 MG IV (03:13)
--- NOTE | 2021-12-19 07:16 | PCM.PN.GU ---
Subjective Subjective 71-year-old status post radical prostatectomy for prostate cancer doing well, good urine output blood pressure stable, JAMES output okay, Welsh catheter in place urine is clear. Mild pain in the abdomen overnight but otherwise doing well we will Hep-Lock IV fluids, ambulate, regular diet, anticipate home tomorrow with Welsh and JAMES drain. Objective Data Objective Data Vital Signs: Vital Signs Temp Pulse Resp BP Pulse Ox O2 Del Method O2 Flow Rate 98.3 F 66 18 101/59 L 91 Room Air 4 12/19/21 04:53 12/19/21 04:53 12/19/21 04:53 12/19/21 04:53 12/19/21 04:53 12/19/21 04:53 12/19/21 04:53 Oxygen Flow Rate (L/min) 4 Oxygen Delivery Method Room Air Weight: 117.163 kg Body Mass Index (BMI) 35.0 Intake & Output: Intake and Output for Last 24 Hours 12/17/21 12/18/21 12/19/21 23:59 23:59 23:59 Intake Total 3360.75 / 3760.75 1000 / 1000 Output Total 415 / 1215 2145 / 2145 Balance 2945.75 / 2545.75 -1145 / -1145 Lab / Micro Data Result Diagrams: 12/14/21 10:12 12/14/21 10:12
[2021-12-19] MEDS: Ciprofloxacin 500 MG Tablet PO ×2 (08:12→21:58)
[2021-12-19] MEDS: Docusate Sodium 100 MG Capsule 200 MG PO (08:12)
[2021-12-19] MEDS: Metoprolol Tartrate 25 MG Tablet PO ×2 (08:12→21:57)
[2021-12-19] MEDS: Ketorolac 15 MG/ML Vial IV ×2 (08:31→17:30)
--- NOTE | 2021-12-19 15:22 | CASEMGMT ---
WINIFRED STOCK in to complete OWENS with patient. WINIFRED STOCK explained OWENS Form to patient, patient voiced understanding. Patient signed OWENS form and filed in chart. Patient provided with copy of signed OWENS form. Patient had no further questions or concerns at this time.
[2021-12-19] MEDS: 0.9% Saline Lock 10 ML Syringe IV (17:31)
[2021-12-20 02:00] VITALS: BP 145/68; PULSE 60; RESP 18; TEMP 36.8; O2SAT 97
[2021-12-20 08:00] VITALS: BP 150/80; PULSE 62; RESP 18; TEMP 36.9; O2SAT 96
[2021-12-20] MEDS: Ciprofloxacin 500 MG Tablet PO (09:57)
[2021-12-20 09:58] VITALS: PULSE 62
[2021-12-20] MEDS: Metoprolol Tartrate 25 MG Tablet PO (09:58)
[2021-12-20 10:59] VITALS: BP 150/80; PULSE 62; RESP 18; TEMP 36.9; O2SAT 96
== END 2021-12-20 11:08 | disposition home or self-care (01) ==
LOC: SDC 08:48 → MS3 08:48
PROVIDERS: Anesthesiology; Admitting Provider Urology; PCP Nurse Practitioner Family; Referring Provider Urology; Visit Provider Urology
PROC: 0VT04ZZ Resection of Prostate, Percutaneous Endoscopic Approach (ICD-10-PCS; CPT 55866; principal; 2021-12-18 07:10)
DX: C61 Malignant neoplasm of prostate (principal); I48.0 Paroxysmal atrial fibrillation; I10 Essential (primary) hypertension; Z79.01 Long term (current) use of 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s; Z79.899 Other long term (current) drug therapy
CPT/HCPCS: 55866; 00865; 36415; 80048; 85027; 86850; 86900; 86901; 88304; 88305; 88307; 88309; 96361; 96365; 96366; 96375; 96376; 99218; 99251; J7120; A4216; G0378; G0463; J0744; J2405

== ENCOUNTER → 2022-03-24 | Outpatient (CLI) | payer MEDICARE, SELFPAY ==
[2022-03-24 11:15] LABS: PSA,Total- Diagnostic 0.49 ng/mL (0.0-4.0)
== END | disposition home or self-care (01) ==
LOC: LAB 10:03
PROVIDERS: PCP Nurse Practitioner Family; Referring Provider Urology; Visit Provider Urology
DX: C61 Malignant neoplasm of prostate (principal)
CPT/HCPCS: 36415; 84153

== ENCOUNTER → 2022-06-01 | Outpatient (CLI) | payer MEDICARE, SELFPAY ==
[2022-06-01 13:09] LABS: Anion Gap 3 (5-15); BUN 24 mg/dL (7-18); BUN/Creat Ratio 26.6 RATIO (10-20); Calcium,Total 9.1 mg/dL (8.5-10.1); Chloride 105 mmol/L (98-107); EST Glomerular Filtration Rate 88 mL/min (>60); Est Glom Filt Rate - Afr Amer 106 mL/min (>60); Glucose 79 mg/dL (74-106); Potassium 4.3 mmol/L (3.5-5.1); Sodium Level 136 mmol/L (136-145)
== END | disposition home or self-care (01) ==
LOC: LAB 11:38
PROVIDERS: PCP Nurse Practitioner Family; Referring Provider Nurse Practitioner Family; Visit Provider Nurse Practitioner Family
DX: I10 Essential (primary) hypertension (principal); I48.0 Paroxysmal atrial fibrillation
CPT/HCPCS: 36415; 80048

== ENCOUNTER → 2022-07-26 | Outpatient (CLI) | payer MEDICARE, SELFPAY ==
--- NOTE | 2022-07-26 | ASPOS_PTH ---
PATIENT: RAMIRO LALA LOC: [facility] U#:[id number] AGE/SX: 72/M ROOM: RE07/26/[address]: Dr. 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 See comment. AM:santana 07/27/2022 COMMENT A fine needle aspiration was performed and the specimen is evaluated at the time of FNA by Dr. Mabry. 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 Clinical correlation is suggested. Case has been reviewed in consultation with Dr. Villegas who concurs with the above diagnosis. IDC:SJ CYTOLOGY STUDY Slides are reviewed. CYTOLOGY GROSS Received is 0.1 ml of clear material labeled with the patient's name, and designated left cheek mass. Two imprints are made from the submitted fluid and the rest is added to CytoLyt for cell block preparation. Submitted for cytology study. / AM:santana 07/26/2022 TC:5 CPT: 55913, 17568, 14615, 67993
== END | disposition home or self-care (01) ==
LOC: LAB 08:46
PROVIDERS: PCP Nurse Practitioner Family; Referring Provider Otolaryngology; Visit Provider Otolaryngology
DX: R22.1 Localized swelling, mass and lump, neck (principal)
CPT/HCPCS: 10021; 88161; 88305

== ENCOUNTER → 2022-08-18 | Outpatient (CLI) | payer MEDICARE, SELFPAY ==
--- NOTE | 2022-08-18 08:00 | CT_ITS ---
STUDY: CT SOFT TISSUE NECK WITH CONTRAST REASON FOR EXAM: Male, 72 years old. Left-sided maxillary mass and swelling. History of prostate cancer and radiation therapy. RADIATION DOSAGE (If Supplied By Facility): CTDIvol = ( 17.14 ) mGy, DLP = ( 479.45 ) mGycm TECHNIQUE: The patient was scanned in a multi-detector CT scanner. High resolution transaxial imaging was performed following intravenous administration of IV 75mL Isovue-370. Sagittal and coronal images were reconstructed. Individualized dose optimization techniques were used for this CT. COMPARISON: None. FINDINGS: Normal bilateral parotid glands. Normal bilateral fine unhairer spaces. Normal bilateral parapharyngeal spaces. Normal bilateral carotid spaces. Normal bilateral sublingual and submandibular glands and spaces. Normal visualized nasopharynx. Normal retropharyngeal space. Normal perivertebral space. Normal visualized bilateral faucial tonsils. The visualized tongue, tongue base and oropharynx are normal. There are small lymph nodes of the neck, with preservation of normal norma architecture, consistent with a reactive lymph hyperplasia. The palpable lump corresponds to a 2.9 cm x 2 cm x 2.8 cm well-defined hypodense nodular mass overlying the left mandible. There is no abnormal contrast enhancement. Normal epiglottis, bilateral vallecula and hypopharynx. The pre-epiglottic and paraglottic adipose spaces are normal. Normal visualized bilateral piriform sinuses, aryepiglottic folds, vocal cords, and arytenoid-cricoid articulations. Normal subglottic trachea. Normal bilateral lobes of the thyroid gland. Normal visualized pulmonary apices. Normal visualized paranasal sinuses. There is multilevel degenerative changes of the cervical spine. Loss of the normal cervical lordosis. CT/Soft Tissue Neck WITH Contrast IMPRESSION: The palpable lump corresponds to a 2.9 cm x 2 cm x 2.8 cm well-defined hypodense nodular mass overlying the left mandible. Electronically Signed: Kraig Armstrong MD at 8:51 EDT ,
[2022-08-18 08:36] LABS: EGFR FINGERSTICK > 60.0000 mL/min (>60)
== END | disposition home or self-care (01) ==
LOC: CT 07:59
PROVIDERS: PCP Nurse Practitioner Family; Referring Provider Otolaryngology; Visit Provider Otolaryngology
DX: R22.1 Localized swelling, mass and lump, neck (principal)
CPT/HCPCS: 70491; Q9967

== ENCOUNTER → 2022-08-27 | Outpatient (CLI) | payer MEDICARE, SELFPAY ==
[2022-08-27 13:38] LABS: BNP,B-Type NATRIURETIC PEPTIDE 16.9 pg/mL (0-100)
[2022-08-27 13:41] LABS: Hematocrit 37.9 % (40-54); Hemoglobin 12.7 g/dL (13.0-16.5); Mean Corp Hgb Conc 33.5 g/dL (32-36); Mean Corpuscular Hgb 29.3 pg (27.0-32.0); Mean Corpuscular Volume 87.5 fL (80-94); Mean Platelet Vol. 10.8 fl (6.2-12.0); Platelet Count 189 K/mm3 (150-450); RBC Distribution Width CV 13.4 % (11.6-14.6); RBC Distribution Width SD 43.3 fl (35.1-43.9); Red Blood Count 4.33 M/mm3 (4.6-6.2); White Blood Count 4.5 K/mm3 (4.4-11.0)
[2022-08-27 13:50] LABS: Anion Gap 9 (5-15); BUN 17 mg/dL (7-18); BUN/Creat Ratio 17.3 RATIO (10-20); Calcium,Total 9.1 mg/dL (8.5-10.1); Chloride 107 mmol/L (98-107); Creatinine, Serum 0.98 mg/dL (0.70-1.30); EST Glomerular Filtration Rate 80 mL/min (>60); Est Glom Filt Rate - Afr Amer 96 mL/min (>60); Glucose 106 mg/dL (74-106); Potassium 3.9 mmol/L (3.5-5.1); Sodium Level 140 mmol/L (136-145); Thyroid Stim Hormone (TSH) 1.02 uIU/mL (0.358-3.74)
== END | disposition home or self-care (01) ==
LOC: LAB 12:55
PROVIDERS: PCP Nurse Practitioner Family; Referring Provider Nurse Practitioner Family; Visit Provider Nurse Practitioner Family
DX: R06.09 Other forms of dyspnea (principal); I48.0 Paroxysmal atrial fibrillation; C61 Malignant neoplasm of prostate; Z79.01 Long term (current) use of 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s
CPT/HCPCS: 36415; 80048; 83880; 84443; 85027

== ENCOUNTER → 2022-09-01 | Outpatient (CLI) | payer MEDICARE, SELFPAY | END | disposition home or self-care (01) | LOC: PSN 07:37 | PROVIDERS: PCP Nurse Practitioner Family; Referring Provider Nurse Practitioner Family; Visit Provider Nurse Practitioner Family | DX: I48.0 Paroxysmal atrial fibrillation (principal) | CPT/HCPCS: 93225; 93226 ==

== ENCOUNTER → 2022-09-29 | Outpatient (CLI) | payer MEDICARE, SELFPAY ==
[2022-09-29 12:19] LABS: PSA,Total- Diagnostic < 0.01 ng/mL (0.0-4.0)
== END | disposition home or self-care (01) ==
LOC: LAB 10:14
PROVIDERS: PCP Nurse Practitioner Family; Referring Provider Registered Nurse; Visit Provider Registered Nurse
DX: C61 Malignant neoplasm of prostate (principal)
CPT/HCPCS: 36415; 84153

== ENCOUNTER → 2023-01-05 | Outpatient (CLI) | payer MEDICARE, SELFPAY ==
[2023-01-05 11:57] LABS: PSA,Total- Diagnostic < 0.01 ng/mL (0.0-4.0)
== END | disposition home or self-care (01) ==
PROVIDERS: PCP Nurse Practitioner Family; Visit Provider Urology
DX: C61 Malignant neoplasm of prostate (principal)
CPT/HCPCS: 36415; 84153

== ENCOUNTER 2023-01-18 05:37 | Day surgery (SDC) | payer MEDICARE, SELFPAY ==
--- NOTE | 2023-01-12 07:47 | EKG12_ITS ---
Test Reason : PRE-OP Blood Pressure : / mmHG Vent. Rate : 082 BPM Atrial Rate : 394 BPM P-R Int : 000 ms QRS Dur : 086 ms QT Int : 382 ms P-R-T Axes : 000 047 074 degrees QTc Int : 446 ms Atrial fibrillation Nonspecific T wave abnormality Abnormal ECG Confirmed by JANICE NARVAEZ, ASHER ([id number]), business editor LIONEL BAILEY ([id number]) on 01/17/2023 8:38:02 AM Referred By: Kamaljit Huizar Confirmed By:THOMAS CAMACHO MD
[2023-01-12 09:03] LABS: Hematocrit 40.1 % (40-54); Hemoglobin 13.6 g/dL (13.0-16.5); Mean Corp Hgb Conc 33.9 g/dL (32-36); Mean Corpuscular Hgb 29.4 pg (27.0-32.0); Mean Corpuscular Volume 86.6 fL (80-94); Mean Platelet Vol. 11.4 fl (6.2-12.0); Platelet Count 198 K/mm3 (150-450); RBC Distribution Width CV 13.1 % (11.6-14.6); RBC Distribution Width SD 40.9 fl (35.1-43.9); Red Blood Count 4.63 M/mm3 (4.6-6.2); White Blood Count 5.3 K/mm3 (4.4-11.0)
[2023-01-12 09:23] LABS: Anion Gap 7 (5-15); BUN 15 mg/dL (7-18); BUN/Creat Ratio 16.3 RATIO (10-20); Calcium,Total 9.1 mg/dL (8.5-10.1); Chloride 107 mmol/L (98-107); Creatinine, Serum 0.92 mg/dL (0.70-1.30); EST Glomerular Filtration Rate 85 mL/min (>60); Est Glom Filt Rate - Afr Amer 103 mL/min (>60); Glucose 125 mg/dL (74-106); Sodium Level 137 mmol/L (136-145)
--- NOTE | 2023-01-18 | IMM_PTH ---
PATIENT: RAMIRO LALA [place] [facility][id number] AGE/SX: 72/M ROOM: RE01/18/[address]: Dr. Beto Huizar MD : 1950 BED: DIS: 01/18/2023 SPEC #: [id number] RECD: 01/20/23 07:42 STATUS: PAIGE REQ #: [id number] JOHANN: 01/18/23 00:[address]: Beto Huizar DEPT: IMMUNOHISTOCHEMISTRY RECD BY: Nancy Graham ENTERED: 01/20/23 07:43 SP TYPE: IMMUNO OTHR DR: Aissatou Webster, DEAN OF INSTRUCTION-C Tissues: Face, NOS Procedures: SMA (add) CALPONIN-1 (add) CD138 (add) CD34 (add) DESMIN (add) ALEX (add) Vimentin (add) Pankeratin (initial) S-100 (add) PHYSICIAN & INSTITUTION [place] [id number] SPECIMEN INFORMATION: Tissue Source: Left facial mass Clinical Info: Localized swelling, mass left cheek Specimen Number: [id number] #2 CPT code: 63090, 67133 x8 METHODOLOGY: Deparaffinized sections of prefer/formalin-fixed tissue or PAP/DQ stained slides are incubated with monoclonal/polyclonal antibodies/oligonucleotide probes. Localization is made via biotin free immunoperoxidase method. Appropriate controls are performed and reacted as expected. Results on target cell population are indicated in the following table: RESULTS: ANTIBODY / CLONE RESULT Block 2 AE1-3 (AE1/AE3/PCK26) negative CD138 (B-A38) negative Vimentin (V9) positive Calponin-1 (YG281G) negative CD34 (QBEnd-10) positive Actin (1A4) negative Desmin (CE-R-11) negative S-100 (4C4.9) negative ALEX (E29) negative These tests were developed and their performance characteristics determined by [facility]. They may not have been cleared or approved by the U.S. Food and Drug Administration. The FDA has determined that such clearance or approval is not necessary. The above immunohistochemical/dualISH markers are ordered and reviewed by the Pathologist. INTERPRETATION: Left facial mass, excision: Myxoid spindle cell lipoma
[2023-01-18 06:23] VITALS: BP 136/66; PULSE 50; RESP 18; TEMP 36.8; O2SAT 97; BMI 35.3
[2023-01-18] MEDS: Lactated Ringers 1,000 ML 15 ML IV (06:26)
--- NOTE | 2023-01-18 07:28 | PCM.DC ---
Discharge Instructions Diet Discharge Diet: No restrictions Activity Discharge Activity: Return to Normal Activity Dressing / Incision Call your doctor if your incision/area has: Increased Pain/ Swelling Follow Up Care Please Follow Up With: Beto Huizar MD When: 1 week Test Results: Test results from this visit will be discussed in further detail at your follow-up appointment, if applicable. Discharge Plan Admission Attending Provider: Beto Huizar Primary Care Provider: Aissatou Webster NP Discharge Orders/Prescriptions Prescriptions: No Action Eligard (3 month) 22.5 mg syringe 22.5 mg subcut [id number] Eliquis 5 mg tablet 5 mg PO BID Qty: 60 0RF Hold Instructions: Resume on 01/01/22. lisinopril 5 mg tablet 10 mg PO DAILY Qty: 180 3RF megestrol 20 mg tablet 20 mg PO BID Patient Comments: take 1 tablet by mouth twice a day diphenhydramine HCl [Banophen] 50 mg capsule 50 mg PO BID furosemide 40 mg tablet 40 mg PO TUTH metoprolol tartrate 50 mg tablet 50 mg PO BID Qty: 180 3RF Referrals / Follow Up: Aissatou Webster NP, HYDRO SPRAYER OPERATOR-C [Primary Care Provider] - Disposition Disposition (needs filled in before D/C Order can be placed): Home, Self Care
--- NOTE | 2023-01-18 07:30 | MASS_PTH ---
PATIENT: RAMIRO LALA LOC: [facility] [place] U#:[id number] AGE/SX: 72/M ROOM: RE01/18/[address]: Dr. Beto Huizar MD : 1950 BED: DIS: 01/18/2023 SPEC #: [id number] RECD: 01/18/23 11:10 STATUS: PAIGE RECaro #: [id number] JOHANN: 01/18/23 07:[address]: Beto Huizar DEPT: SURGICAL PATHOLOGY RECD BY: Ivet Rose ENTERED: 01/18/23 12:56 SP TYPE: Mass OTHR DR: DAVID Bey Tissues: Cheek, NOS Procedures: Gen Path Consultation (on slides) Surgery Specimen Level IV HEADER OPERATION: Excision mass cheek PRE-OP DIAGNOSIS: Localized swelling, mass left cheek TISSUE SUBMITTED: Left facial mass MICROSCOPIC DIAGNOSIS Left facial soft tissue mass, excision: Myxoid spindle cell lipoma. See comment. AM:santana 02/04/2023 COMMENT Immunohistochemistry ([id number]) supports the above diagnosis. Case is seen in consultation with Dr. Farias of [place]. Complete consultation report in EMR. MICROSCOPIC DESCRIPTION Slides are reviewed. GROSS DESCRIPTION Received in fixative is one container labeled with the patient's name and designated left facial mass. The specimen consists of a fleshy, glistening fragment of yellow-pink tissue measuring 3.6 x 2.6 x 1.5 cm. Serial sections reveal homogenous yellow-white cut surfaces. Release Coordinator sections are submitted in two cassettes. / AM:santana 01/18/2023 TC:1 CPT: 92277
--- NOTE | 2023-01-18 07:32 | OP.PCM_ITS ---
Problems Associated Problem List Diagnoses (1) Mass of face: (2) Lipoma of face: Report of Operation Date of Procedure: 01/18/23 Pre-Operative Diagnosis: left facial mass Post-Operative Diagnosis: left facial mass Surgery/Procedure Performed:: excision left facial mass Surgeon: Beto Huizar Type of Anesthesia: General Description of Procedure: on the day of the procedure, after appropriate informed consent was obtained, the patient was brought to the operating room and placed in supine position on the operating table. he was placed under general endotracheal anesthesia by the anesthesiologist. the endotracheal tube was secured, the eyes were taped. the left lower face was injected with lidocaine/epinephrine and prepped/draped in sterile fashion. a 1cm transverse incision was made along the nasolabial fold superficially. the subcutaneous fat was entered with an iris scissor and the mass was readily seen. it was circumferentially dissected with the iris and expressed digitally through the incision. the deep tissues were easily spread and the mass was freed. there was no bleeding. the deep structures were intac t. the incision was closed with 4-0 vicryl and 5-0 nylon. he was awoken from anesthesia and transferred to the PACU in stable condition.
[2023-01-18] MEDS: Clindamycin 900 MG/50 ML BAG 75 MG IV (07:38)
[2023-01-18] MEDS: Lidocaine 1% /Epi 1:100 (50ml) 50 ML VIAL (07:54)
[2023-01-18] MEDS: Mupirocin Ointment 22gm Tube 1 APPLIC (08:23)
[2023-01-18 08:31] VITALS: BP 125/70; BP 136/66; PULSE 79; RESP 16; TEMP 36.3; O2SAT 95
[2023-01-18 08:45] VITALS: BP 131/68; BP 136/66; PULSE 74; RESP 16; O2SAT 97
[2023-01-18 09:00] VITALS: BP 136/66; BP 136/76; PULSE 77; RESP 16; TEMP 36.1; O2SAT 97
[2023-01-18 09:30] VITALS: BP 115/69; BP 136/66; PULSE 71; RESP 16; TEMP 36.3; O2SAT 98
== END 2023-01-18 09:39 | disposition home or self-care (01) ==
LOC: SDC 05:37 → AC 05:37
PROVIDERS: PCP Nurse Practitioner Family; Referring Provider Otolaryngology; Visit Provider Otolaryngology
PROC: (CPT 21012; principal; 2023-01-18 07:15)
DX: D17.0 Benign lipomatous neoplasm of skin and subcutaneous tissue of head, face and neck (principal); I48.0 Paroxysmal atrial fibrillation; R22.0 Localized swelling, mass and lump, head; I10 Essential (primary) hypertension; I34.0 Nonrheumatic mitral (valve) insufficiency; Z79.01 Long term (current) use of 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s; Z79.899 Other long term (current) drug therapy
CPT/HCPCS: 21012; 00300; 36415; 80048; 85027; 88305; 88325; 88341; 88342; 93005; J7120; J2405

== ENCOUNTER 2023-03-03 10:18 | Emergency (ER) | payer OTHER, SELFPAY ==
[2023-03-03 10:20] VITALS: BP 137/77; PULSE 67; RESP 14; TEMP 36.8; O2SAT 98; BMI 35.4
--- NOTE | 2023-03-03 10:52 | CT_ITS ---
STUDY: CT BRAIN WITHOUT CONTRAST REASON FOR EXAM: Male, 73 years old. Headache RADIATION DOSAGE (If Supplied By Facility): CTDIvol = ( 44.99 ) mGy, DLP = ( 812.98 ) mGycm TECHNIQUE: Transaxial CT imaging of the brain was performed without administration of intravenous contrast material. Individualized dose optimization techniques were used for this CT. COMPARISON: No relevant prior comparison study available FINDINGS: PARENCHYMA: There is no acute bleed or infarct. There are chronic ischemic and atrophic changes. VENTRICLES: There is a cavum septum pellucidum noted. There is no hydrocephalus. MASTOID AIR CELLS AND PARANASAL SINUSES: The visualized paranasal sinuses are clear. The mastoid air cells are clear. BONES: There is no skull fracture. SOFT TISSUES: The visualized soft tissues are within normal limits. CT/Brain/Head without Contrast IMPRESSION: No acute intracranial abnormality. Chronic ischemic and atrophic changes. Electronically Signed: Jaiden Campoverde MD at 12:14 EST ,
--- NOTE | 2023-03-03 10:53 | EX.ED.VIS.HA ---
HPI History of Present Illness Chief Complaint: Headache Informant: patient and spouse/S.O. Narrative Narrative: Patient presents with increasing frequency of headaches. Patient has had ocular migraines for about 10 years. He normally gets holes or flashing lights in his vision. He does not usually get a significant headache with these. Now the last 6 months he has been getting headaches on the posterior right side of his head. These are occurring about once a month. No definite cause or inciting event. If he goes into a quiet dark room they will subside in about 45 minutes to an hour. No nausea vomiting. He does not get visual complaints with these. He is having the same headaches but they have occurred 3 times in the past month rather than just once a month so the is understandably concerned. He states he had a headache this morning after working out but it is already down to about a 2. He is not here so much for controlling the headaches but concern over their increased frequency. He is on hormonal therapy due to history of prostate cancer but there is been no change in this. He has not had any head trauma or injury recently. He is on and has been taking his Eliquis for history of intermittent atrial fibrillation. He was also placed on Lasix 5 times a week but he was having headaches prior to this. [facility] Medical History Adenocarcinoma Atrial fibrillation Benign prostatic hyperplasia with lower urinary tract symptoms Cancer Cardiology follow-up encounter Chronic cough Elevated PSA Encounter for education Essential hypertension Gross hematuria History of echocardiogram History of Holter monitoring History of left heart catheterization (LHC) (~04/12/01) History of stress test Leg cramps Migraine headache New onset atrial fibrillation Nocturia Non-smoker Nonrheumatic mitral (valve) insufficiency Prostate disease Shortness of breath on exertion Syncope Wears glasses Wears hearing aid Home Medications lisinopril 5 mg tablet 10 mg (2 x 5 mg) PO DAILY Dose increased to twice a day #180 tabs 09/03/22 [Rx Last Taken Unknown] apixaban 5 mg tablet (Eliquis) 5 mg PO BID blood thinner #60 tabs 11/18/22 [Rx Last Taken 01/15/23] leuprolide (3 month) 22.5 mg (3 month) subcutaneous syringe (Eligard) 22.5 mg subcut [id number] 11/18/22 [History Last Taken Unknown] metoprolol tartrate 50 mg tablet 50 mg PO BID #180 tabs 12/14/22 [Rx Last Taken 01/18/23 03:45] diphenhydramine HCl 50 mg capsule (Banophen) 50 mg PO BID 01/11/23 [History Last Taken Unknown] megestrol 20 mg tablet 20 mg PO BID 01/11/23 [History Last Taken Unknown] furosemide 40 mg tablet 40 mg PO DAILY 02/02/23 [History Last Taken Unknown] diphenhydramine HCl 25 mg capsule (Benadryl) 50 mg PO QHS 02/24/23 [History Last Taken Unknown] Allergy/AdvReac Type Severity Reaction Status Date / Time No Known Allergies Allergy Verified 03/03/23 10:20 Family History Mother Hypertension Cancer Father Hypertension Surgical History History of cystoscopy History of robot-assisted laparoscopic radical prostatectomy History of tonsillectomy and adenoidectomy Hx of cataract surgery Hx of colonoscopy Hx of hand surgery Hx of radical prostatectomy Hx of umbilical hernia repair Hx of vasectomy S/P vasectomy Social History Smoking Status: Never smoker alcohol intake: current alcohol intake frequency: holidays/special occasions only substance use type: does not use caffeine: Yes Type: coffee Number of servings: 2 ROS ROS ED ROS Narrative A complete review of systems was performed and is negative except as documented in the history of present illness. Some specific details below. Constitutional: No recent fevers or chills. No rigors. Patient has not generally felt ill. EYE: No discharge, visual complaints, or pain. He has had visual changes with the ocular migraines but he is not having that now. ENT: No difficulty swallowing. No swelling. No sinus pressure or pain. No nasal discharge. No change in hearing. No ear pain. CV: No chest pain, pressure or aching. No palpitations or irregular beats. Patient has not been presyncopal or syncopal. Respiratory: No trouble breathing. No cough. No wheezing. No sputum production. No pain with breathing. GI: No abdominal pain. No nausea vomiting diarrhea. No blood in stool. : No frequency dysuria or hematuria. Musculoskeletal: No recent trauma. No pains. No swelling. Skin: No rash. No diaphoresis. Neuro: No weakness or numbness. No difficulty with speaking. No difficulty understanding speech. No visual loss. Please see history of present illness also. He is not getting any neurologic symptoms prior to with or after the headache. Endocrine: No polyuria or polydipsia. EXAM Physical Exam Narrative Exam Narrative: CONSTITUTIONAL: Patient is nontoxic in appearance. The patient looks comfortable. HEENT: No notable trauma. Mucous membranes moist. No sinus tenderness. Tympanic membranes are normal. No temporal artery tenderness on either side. No facial rashes or swelling. EYES: No conjunctival injection. No proptosis. No pain with range of motion. Funduscopic exam shows no marked abnormalities. No notable photophobia NECK: No meningismus. No JVD. No pain with motion. No bruit on either side. CARDIOVASCULAR: Regular rate. Regular rhythm. No notable murmur. No JVD. RESPIRATORY: No respiratory distress. Breathing is unlabored. No wheezes. No rhonchi. No rales. No pain with a deep breath. GASTROINTESTINAL: Not distended. Bowel sounds are normal. No tenderness. GENITOURINARY: No tenderness over the bladder. No CVA tenderness. MUSCULOSKELETAL: Atraumatic. No tenderness. NEUROLOGICAL: Patient is alert and oriented. No focal deficit noted. NIH stroke scale is 0. SKIN: No noted rashes. No diaphoresis. No vesicles noted. PSYCHIATRIC: Patient is calm. Mood is appropriate. Const Vital Signs: 03/03/23 10:20 03/03/23 14:00 Temperature 98.3 F Temperature Source Temporal Pulse Rate 67 73 Respiratory Rate 14 16 Blood Pressure 137/77 H 141/74 H Blood Pressure Mean 97 96 Pulse Ox 98 95 Oxygen Delivery Method Room Air Room Air MDM MDM MDM Narrative Medical decision making narrative: My independent interpretation the patient's CT of the head shows no acute process. Renal reading is similar but no other chronic ischemic changes. Patient CBC is normal including platelets. Patient's electrolytes are overall normal. Patient's glucose is mildly up at 124 but I do not think this is source of his symptoms. ESR was not checked as he has no temporal artery tenderness or pain in that area. I think this patient's symptoms are likely migrainous. I rechecked him. He states his headache is 100% gone. He has had migraines for many years. Normally they are ocular migraines. But for the last 6 or so months he has been getting intermittent headaches that last for about 45 minutes. They are unilateral and they are resolved with a dark quiet place. He will follow-up with his primary physician Lab Data Attestation: I reviewed the patient's lab results. Labs: Laboratory Results - last 24 hr 03/03/23 10:42 WBC 4.5 RBC 4.63 Hgb 13.1 Hct 40.1 MCV 86.6 MCH 28.3 MCHC 32.7 RDW Std Deviation 41.4 RDW Coeff of Real 13.2 Plt Count 179 MPV 11.2 Immature Gran % (Auto) 0.200 Neut % (Auto) 61.6 Lymph % (Auto) 22.2 [place] % (Auto) 10.0 Eos % (Auto) 5.1 H Baso % (Auto) 0.9 Absolute Neuts (auto) 2.8 Absolute Lymphs (auto) 1.00 Nucleated RBC % 0 Sodium 138 Potassium 3.7 Chloride 105 Carbon Dioxide 25.0 Anion Gap 8 BUN 18 Creatinine 1.00 Estim Creat Clear Calc 71.13 Est GFR (MDRD) Af Amer 94 Est GFR (MDRD) Non-Af 78 BUN/Creatinine Ratio 18.0 Glucose 124 H Calcium 9.1 Radiography Diagnostic Testing: Clinical Impression(s) from Imaging Studies Brain CT 03/03/23 10:52 IMPRESSION: No acute intracranial abnormality. Chronic ischemic and atrophic changes. Electronically Signed: Jaiden Campoverde MD at 12:14 EST , Discharge Plan Triage Chief Complaint: Headache ED Provider: Luis Pringle Dx/Rx/DC Orders Clinical Impression: Headache, migraine Instructions: ED, Migraine (Classical) Prescriptions: No Action Eligard (3 month) 22.5 mg syringe 22.5 mg subcut [id number] Eliquis 5 mg tablet 5 mg PO BID Qty: 60 0RF Hold Instructions: Resume on 01/01/22. lisinopril 5 mg tablet 10 mg PO DAILY Qty: 180 3RF megestrol 20 mg tablet 20 mg PO BID Patient Comments: take 1 tablet by mouth twice a day diphenhydramine HCl [Banophen] 50 mg capsule 50 mg PO BID metoprolol tartrate 50 mg tablet 50 mg PO BID Qty: 180 3RF furosemide 40 mg tablet 40 mg PO DAILY Hold Instructions: pt not taking. Patient Comments: 5 DAYS A WEEK diphenhydramine HCl [Benadryl] 25 mg capsule 50 mg PO QHS Primary Care Provider: Aissatou Webster NP Referrals: Aissatou Webster NP, DAM WORKER-C [Primary Care Provider] - 3-5 Days Disposition Disposition: Home, Self Care
[2023-03-03 11:14] LABS: Absolute Neutrophil Count 2.8 X10^3/uL (2.0-7.7); Basophil# 0.04 X10^3/uL; Basophil% 0.9 % (0-1); Eosinophil# 0.23 X10^3/uL; Eosinophils% 5.1 % (0-5); Hematocrit 40.1 % (40-54); Hemoglobin 13.1 g/dL (13.0-16.5); Lymphocyte % 22.2 % (19-41); Mean Corp Hgb Conc 32.7 g/dL (32-36); Mean Corpuscular Hgb 28.3 pg (27.0-32.0); Mean Corpuscular Volume 86.6 fL (80-94); Mean Platelet Vol. 11.2 fl (6.2-12.0); Monocyte# 0.45 X10^3/uL; NRBC Flagged by Analyzer 0 % (0-5); Neutrophil # 2.78 X10^3/uL (2.7-7.7); Neutrophil % 61.6 % (47-70); Platelet Count 179 K/mm3 (150-450); RBC Distribution Width CV 13.2 % (11.6-14.6); RBC Distribution Width SD 41.4 fl (35.1-43.9); Red Blood Count 4.63 M/mm3 (4.6-6.2); White Blood Count 4.5 K/mm3 (4.4-11.0)
[2023-03-03 11:28] LABS: Anion Gap 8 (5-15); BUN 18 mg/dL (7-18); Calcium,Total 9.1 mg/dL (8.5-10.1); Chloride 105 mmol/L (98-107); EST Glomerular Filtration Rate 78 mL/min (>60); Est Glom Filt Rate - Afr Amer 94 mL/min (>60); Estimated Creatinine Clearance 71.13 ml/min; Glucose 124 mg/dL (74-106); Potassium 3.7 mmol/L (3.5-5.1); Sodium Level 138 mmol/L (136-145)
[2023-03-03 14:00] VITALS: BP 141/74; PULSE 73; RESP 16; O2SAT 95
[2023-03-03 14:20] VITALS: PULSE 94; RESP 16
== END 2023-03-03 14:22 | disposition home or self-care (01) ==
PROVIDERS: Emergency Provider Emergency Medicine; PCP Nurse Practitioner Family; Visit Provider Emergency Medicine
DX: G43.909 Migraine, unspecified, not intractable, without status migrainosus (principal)
CPT/HCPCS: 70450; 80048; 85025; 99283; A4216

== ENCOUNTER → 2023-04-11 | Outpatient (CLI) | payer MEDICARE, SELFPAY ==
--- OUTSIDE RECORDS SUMMARY | 2023-04-11 10:26 | XMS RPT_ITS | CCD ---
Author Name Unknown Address [id number] [place] [address] Organization [facility] Care Team Providers Care Architecture Consultant Name Role Phone RONNIE JOHNSONSKOOG PATCHING MACHINE OPERATOR, DB Primary Care Physician EDISONSON BLOWER OPERATOR-SKOOG PATCHING MACHINE OPERATOR, DB Primary Care Unavail able LAURIE QUINONES DO Attending Unavailable LORSON BLOWER OPERATOR-SKOOG PATCHING MACHINE OPERATOR, DB Primary Care Unavail able LORSON BLOWER OPERATOR-SKOOG PATCHING MACHINE OPERATOR, DB Attending Unavail able LORSON BLOWER OPERATOR-SKOOG PATCHING MACHINE OPERATOR, DB Attending Unavail able LORSON BLOWER OPERATOR-SKOOG PATCHING MACHINE OPERATOR, DB Referring Unavail able LORSON BLOWER OPERATOR-SKOOG PATCHING MACHINE OPERATOR, DB Primary Care Unavail able LORSON BLOWER OPERATOR-SKOOG PATCHING MACHINE OPERATOR, DB Attending Unavail able LORSON BLOWER OPERATOR-SKOOG PATCHING MACHINE OPERATOR, DB Primary Care Unavail able LORSON BLOWER OPERATOR-SKOOG PATCHING MACHINE OPERATOR, EWING Primary Care Unavail able MONTSE BLOWER OPERATOR-SKOOG PATCHING MACHINE OPERATOR, JEAN PAUL Attending Sushil calero Medications Current Medications Medication Drug Class(es) Dates Sig (Normalized) Sig (Original) apixaban 5 mg oral tablet (6 sources) Factor Xa Inhibitor Start: 10-08-2021 Eliquis 5 mg oral tablet Dose : 5 mg = 1 tab(s), Oral, BID, # 180 tab(s), 0 Refill(s), 112.4 Start Date: 10/08/21 Status: Ordered benzonatate 200 mg oral capsule (1 source) Non-narcotic Antitussive Start: 09-29-2021 End: 10-04-2021 benzonatate 200 mg oral capsule Dose : 200 mg = 1 cap(s), Oral, TID, X 5 day(s), # 15 cap(s), 0 Refill(s), 10/04/21 14:34:00 EDT, Pharmacy: [facility] #[id number], 183, cm, 09/23/21 16:36:00 EDT, Height Start Date: 09/29/21 Stop Date: 10/04/21 Status: Ordered bicalutamide 50 mg oral tablet (4 sources) Androgen Receptor Inhibitor Start: 05-12-2022 take 1 tablet by mouth once daily bicalutamide 50 mg oral tablet take 1 tablet by mouth once daily Start Date: 05/12/22 Status: Ordered doxazosin 4 mg oral tablet (2 sources) alpha-Adrenergic Hilary Start: 05-19-2021 doxazosin 4 mg oral tablet Dose : 4 mg = 1 tab(s), Oral, Daily, # 30 tab(s), 0 Refill(s) Start Date: 05/19/21 Status: Ordered furosemide 40 mg oral tablet (3 sources) Loop Diuretic Start: 09-22-2022 furosemide 40 mg oral tablet Dose : 40 mg = 1 tab(s), Oral, Tuesday & , 0 Refill(s) Start Date: 09/22/22 Status: Ordered ibuprofen 200 mg oral capsule (2 sources) Nonsteroidal Anti-inflammatory Drug Start: 06-05-2020 take 1 mg by mouth every six hours ibuprofen 200 mg oral capsule mg = cap(s), Oral, q6hr, 0 Refill(s) Start Date: 06/05/20 Status: Ordered Leuprolide Acetate 7.5 MG/ML Prefilled Syringe (1 source) Gonadotropin Releasing Hormone Receptor Agonist Start: 11-01-2022 inject 7.5 mg by subcutaneous injection every three months leuprolide 7.5 mg/month subcutaneous injection, extended release See Instructions, 7.5 mg Subcutaneous 30 day(s) q 3 months, 0 Refill(s) Start Date: 11/01/22 Status: Ordered lisinopril 5 mg oral tablet (3 sources) Angiotensin Converting Enzyme Inhibitor Start: 06-04-2022 lisinopril 5 mg oral tablet Dose : 5 mg = 1 tab(s), Oral, qDay, # 30 tab(s), 0 Refill(s) Start Date: 06/04/22 Status: Ordered loratadine 10 mg oral tablet (4 sources) Start: 03-09-2022 loratadine 10 mg oral tablet Dose : 10 mg = 1 tab(s), Oral, qDay, # 30 tab(s), 0 Refill(s), Pharmacy: [facility] #[id number], Acute sinusitis, 183.5, cm, 03/09/22 8:02:00 EST, Height Start Date: 03/09/22 Status: Ordered megestrol acetate 20 mg oral tablet (1 source) Progestin Start: 11-01-2022 megestrol 20 mg oral tablet Dose : 20 mg = 1 tab(s), Oral, BID, take 1 tablet by mouth twice a day Start Date: 11/01/22 Status: Ordered metoprolol tartrate 25 mg oral tablet (5 sources) beta-Adrenergic Hilary Start: 09-23-2021 metoprolol tartrate 25 mg oral tablet Dose : 25 mg = 1 tab(s), Oral, BID, # 60 tab(s), 0 Refill(s), Atrial fibrillation Start Date: 09/23/21 Status: Ordered zinc acetate 25 mg oral capsule (2 sources) Start: 06-05-2020 zinc (as acetate) 25 mg oral capsule Dose : 25 mg = 1 cap(s), Oral, TID, # 250 cap(s), 0 Refill(s) Start Date: 06/05/20 Status: Ordered Completed/Discontinued Medications Medication Drug Class(es) Dates Sig (Normalized) Sig (Original) fluticasone propionate 0.05 mg/actuat metered dose nasal spray (6 sources) Corticosteroid Start: 05-19-2021 End: 06-18-2021 take 1 dose nasal route once daily in the morning Flonase 50 mcg/inh nasal spray Dose = 2 spray(s), Nostril, each, qAM, # 16 gram(s), 0 Refill(s), Pharmacy: [id number] Sinusitis, 183, cm, 05/19/21 8:33:00 EDT, Height, kg, 05/19/21 8:33:00 EDT, Dosing Weight Start Date: 05/19/21 Stop Date: 06/18/21 Status: Ordered Problems Problem Classification Problem Date Documented Da te Episodic/Chronic Cancer of prostate (4 sources) Malignant tumor of prostate 02-03-2022 Chronic Cardiac dysrhythmias (4 sources) Atrial fibrillation 10-08-2021 Chronic Complications of surgical procedures or medical care (1 source) Injection site disorder 11-01-2022 Episodic Essential hypertension (3 sources) Hypertensive disorder 06-04-2022 Chronic Heart valve disorders (1 source) Mitral valve regurgitation 11-01-2022 Chronic Other and unspecified benign neoplasm (4 sources) Polyp of colon 05-12-2022 Episodic Other connective tissue disease (1 source) Musculoskeletal symptom; Translations: [Other symptoms and signs involving the musculoskeletal system] Episodic Other gastrointestinal disorders (6 sources) Prostate mass 08-19-2021 Episodic Other lower respiratory disease (4 sources) Postviral cough 02-03-2022 Episodic Other lower respiratory disease (4 sources) Tussive syncope 10-08-2021 Episodic Other lower respiratory disease (1 source) Dyspnea 11-01-2022 Episodic Other non-traumatic joint disorders (3 sources) Hip pain 09-22-2022 Episodic Other non-traumatic joint disorders (1 source) Pain of left hip joint; Translations: [Pain in left hip] Episodic Other nutritional; endocrine; and metabolic disorders (4 sources) Body mass index 30+ - obesity 02-03-2022 Chronic Other nutritional; endocrine; and metabolic disorders (4 sources) Obesity 02-03-2022 Chronic Screening and history of mental health and substance abuse codes (4 sources) Tobacco use and exposure - finding 02-03-2022 Chronic Unclassified (20 sources) Patient encounter status 06-05-2020 Unclassified (4 sources) Drug therapy finding 02-03-2022 Results Test Name Value Interpretation Reference Range Facil ity Vital Signs Date Time Vital Sign Value Performing Clinician Tatiana malin 05-19-2022 09:22-0400 Diastolic Blood Pressure Non-Invasive 78 1 LAURIE STACIE DO [facility] 05-19-2022 09:22-0400 Heart rate 65 /min LAURIE STACIE DO [facility] 05-19-2022 09:22-0400 Respiratory rate 15 /min LAURIE STACIE DO [facility] 05-19-2022 09:22-0400 Systolic Blood Pressure Non-Invasive 144 1 LAURIE STACIE DO [facility] 05-19-2022 09:15-0400 Diastolic Blood Pressure Non-Invasive 80 1 LAURIE STACIE DO [facility] 05-19-2022 09:15-0400 Heart rate 71 /min LAURIE STACIE DO [facility] 05-19-2022 09:15-0400 Respiratory rate 15 /min LAURIE STACIE DO [facility] 05-19-2022 09:15-0400 Systolic Blood Pressure Non-Invasive 127 1 LAURIE STACIE DO [facility] 05-19-2022 09:04-0400 Body temperature 96.8 [degF] LAURIE STACIE DO [facility] 05-19-2022 09:04-0400 Diastolic Blood Pressure Non-Invasive 74 1 LAURIE STACIE DO [facility] 05-19-2022 09:04-0400 Heart rate 67 /min LAURIE STACIE DO [facility] 05-19-2022 09:04-0400 Respiratory rate 15 /min LAURIE STACIE DO [facility] 05-19-2022 09:04-0400 Systolic Blood Pressure Non-Invasive 112 1 LAURIE STACIE DO [facility] 05-19-2022 08:55-0400 Respiratory Rate - Anes 14 br/min LAURIE STACIE DO [facility] 05-19-2022 08:50-0400 Respiratory Rate - Anes 17 br/min LAURIE STACIE DO [facility] 05-19-2022 08:43-0400 Body temperature 97.52 [degF] LAURIE STACIE DO [facility] 05-19-2022 08:43-0400 Heart rate 74 /min LAURIE BEACHY DO [facility] 05-19-2022 08:38-0400 Body height 183.5 cm LAURIE BEACHY DO [facility] 05-19-2022 08:38-0400 Body weight 115.9 kg LAURIE QUINONES DO [facility] 05-19-2022 08:38-0400 Body weight 34.42 kg/m2 LAURIE BEACHY DO [facility] Encounters Encounter Date Encounter Type Care Provider Facility Start: 02-07-2023 End: 02-08-2023 ambulatory DB TRUJILLO BLOWER OPERATOR-SKOOG PATCHING MACHINE OPERATOR Facility:[facility] Start: 11-22-2022 End: 11-23-2022 ambulatory DB RONNIE BLOWER OPERATOR-SKOOG PATCHING MACHINE OPERATOR Facility:[facility] Start: 11-22-2022 End: 11-22-2022 Patient encounter procedure DB HOGANCHARMAINE BLOWER OPERATOR-SKOOG PATCHING MACHINE OPERATOR [facility] Start: 09-30-2022 End: 10-19-2022 ambulatory DB TRUJILLO BLOWER OPERATOR-SKOOG PATCHING MACHINE OPERATOR Facility:[facility] Start: 09-30-2022 End: 10-19-2022 Physical therapy management DB RONNIE BLOWER OPERATOR-SKOOG PATCHING MACHINE OPERATOR [facility] Start: 09-22-2022 End: 09-23-2022 ambulatory DB RONNIE BLOWER OPERATOR-SKOOG PATCHING MACHINE OPERATOR Facility:[facility] Start: 09-22-2022 End: 09-22-2022 Patient encounter procedure DB HOGANCHARMAINE BLOWER OPERATOR-SKOOG PATCHING MACHINE OPERATOR [facility] Start: 05-19-2022 End: 03-16-2023 ambulatory DB TRUJILLO BLOWER OPERATOR-SKOOG PATCHING MACHINE OPERATOR Facility:[facility] Start: 05-19-2022 End: 05-19-2022 Minor Procedure LAURIE QUINONES DO [facility] Start: 09-30-2021 End: 09-30-2021 Patient encounter procedure DB TRUJILLO BLOWER OPERATOR-SKOOG PATCHING MACHINE OPERATOR [facility] Start: 08-24-2021 End: 08-24-2021 Patient encounter procedure DB TRUJILLO BLOWER OPERATOR-SKOOG PATCHING MACHINE OPERATOR [facility] Procedures Date Procedure Procedure Detail Performing Clinician Start: 05-19-2022 Colonoscopy LAURIE QUINONES DO Cardiac catheterization YOEL ESPERANZA HOGANCHARMAINE BLOWER OPERATOR-SKOOG PATCHING MACHINE OPERATOR Catheter procedure DB OROPEZA BLOWER OPERATOR-SKOOG PATCHING MACHINE OPERATOR Hand structure (body structure) DB TRUJILLO BLOWER OPERATOR-SKOOG PATCHING MACHINE OPERATOR Immunizations Immunization Date Immunization Notes Care Provider [facility] 12-16-2020 influenza virus vaccine, unspecified formulation DB TRUJILLO BLOWER OPERATOR-SKOOG PATCHING MACHINE OPERATOR [facility] 06-26-2020 SARS-CoV-2 (COVID-19 ) [id number] vaccine DB TRUJILLO BLOWER OPERATOR-SKOOG PATCHING MACHINE OPERATOR [facility] Payers Date Payer Category Payer Medicare [id number] 1950 Unknown [id number] [id number] 1950 Unknown [id number] [id number] 1950 Unknown [id number] [id number] [id number] 1950 Unknown [id number] [id number] [id number] 1950 Unknown [id number] [id number] [id number] Social History Date Type Detail Facility Start: 06-05-2020 Tobacco smoking status Never s moked tobacco (finding) [facility] Sex Assigned At Male [facility] Functional Status Date Assessment Result Facility 09-30-2022 Functional Status Objective: Cardiovascular screen: BP: 120/70 HR: 87 BPM O2 sat: 97% Gait: ambulates without notable antalgic gait but does have bilat toe out gait Weight bearing status: WBAT Effusion: min to no Leg effusion, Functional Strength: sit to stand: Guero relies heavily on UE assist and pain during transition Special tests: Slump: - bilat, JUANA and FADIR negative bilat, SLS min to no increased lateral hip pain on the L [facility] 05-19-2022 Functional Status Maintained [facility] Mental Status Date Assessment Result Facility 05-19-2022 Mental Status Oriented x 4 [facility] Clinical Notes 09-30-2021 to 11-22-2022 Note Date & Type Note Facility [facility] 03-15-2023 Evaluation + Plan noteExtracted from: Title:Clinical Document Author:LAURIE QUINONES ate:05/19/22 [place] ADMISSION HISTORY AN D PHYSICIAL CHIEF COMPLAINT: Personal history of colon polyps HISTORY OF PRESENT ILLNESS: Personal history of colon polyps, last colonoscopy 3 to 4 years ago REVIEW OF SYSTEMS: Constitutional: denies weight loss Cardiovascular:denies chest pain, palpitations Respiratory:denies shortness of breath Gastrointestinal:no abd pain Musculoskeletal: no arthralgias Skin: no rashes . ACTIVE PROBLEMS: (15) Anticoagulated (174368968) Atrial fibrillation (38575119) BMI 34.0-34.9,adult (247815189) Colon polyp (305685993) Cough syncope (308356436) 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/antiplatelets (632283699) Non-tobacco user (709588749) Obese (6296367490) Post-viral cough syndrome (6388365675) Prostate cancer (2134433924) Prostate mass (108855125) Screening for colon cancer (857157534) Screening for diabetes mellitus (265730064) Screening for ischemic heart disease (446544870) Screening for osteoporosis (828538203) MEDICATIONS: Active Inpt Meds: None Active PRN Meds: None One Time Meds: None Active IV Meds: None ALLERGIES: (1) NKA FAMILY HISTORY: SOCIAL HISTORY: PHYSICAL EXAM: VITALS: No Data Available 24 Hr Tmax: No Data Available 36 Hr Tmax: No Data Available Vital Signs are the last 5 in the past 48 hours. Weights display the last 5 within 7 days. Initial Wt: No Data Available Current Wt: No Data Available physical exam alert and oriented cardio; regular without murmur pulm; clear abd; soft, nontender LABS: No 36hr Lab Data IMPRESSION: Personal history of colon polyps, high risk PLAN: Colonoscopy with polypectomy was discussed in the office. Cardiology and antiplatelet recommendations were made. Eliquis has been recommended to be held for 4 days prior to the procedure [facility] 03-15-2023 Hospital Discharge instructions Patient Education 05/19/2022 08:47:56 Monitored Anesthesia Care, Care After Monitored Anesthesia Care, Care After These instructions provide you with information about caring for yourself after your procedure. Your health care provider may also give you more specific instructions. Your treatment has been plannedaccording to current medical practices, but problems sometimes occur. Call your health care provider if you have any problems or questions after your procedure. What can I expect after the procedure? After your procedure, you may: Feel sleepy for several hours. Feel clumsy and have poor balance for several hours. Feel forgetful about what happened after the procedure. Have poor judgment for several hours. Feel nauseous or vomit. Have a sore throat if you had a breathing tube during the procedure. Follow these instructions at home: For at least 24 hours after the procedure: Have a responsible adult stay with you. It is important to have someone help care for you until youare awake and alert. Rest as needed. Do not: ?Participate in activities in which you could fall or become injured. ?Drive. ?Use heavy machinery. ?Drink alcohol. ?Take sleeping pills or medicines that cause drowsiness. ?Make important decisions or sign legal documents. ?Take care of children on your own. Eating and drinking Follow the diet that is recommended by your health care provider. If you vomit, drink water, juice, or soup when you can drink without vomiting. Make sure you have little or no nausea before eating solid foods. General instructions Take kubo-vkk-nlwkvwt and prescription medicines only as told by your health care provider. If you have sleep apnea, surgery and certain medicines can increase your risk for breathing problems. Follow instructions from your health care provider about wearing your sleep device: ?Anytime you are sleeping, including during daytime naps. ?While taking prescription pain medicines, sleeping medicines, or medicines that make you drowsy. If you smoke, do not smoke without supervision. Keep all follow-up visits as told by your health care provider. This is important. Contact a health care provider if: You keep feeling nauseous or you keep vomiting. You feel light-headed. You develop a rash. You have a fever. Get help right away if: You have trouble breathing. Summary For several hours after your procedure, you may feel sleepy and have poor judgment. Have a responsible adult stay with you for at least 24 hours or until you are awake and alert. This information is not intended to replace advice given to you by your health care provider. Make sure you discuss any questions you have with your health care provider. Document Released: 06/13/2016 Document Revised: 05/22/2018 Document Reviewed: 06/13/2016 [employer] Patient Education 2020 [employer]. 05/19/2022 08:47:53 Colonoscopy, Adult, Care After, Twec-oe-Lwnb Colonoscopy, Adult, Care After This sheet gives you information about how to care for yourself after your procedure. Your doctor may also give you more specific instructions. If you have problems or questions, call your doctor. What can I expect after the procedure? After the procedure, it is common to have: A small amount of blood in your poop for 24 hours. Some gas. Mild cramping or bloating in your belly. Follow these instructions at home: General instructions For the first 24 hours after the procedure: ?Do not drive or use machinery. ?Do not sign important documents. ?Do not drink alcohol. ?Do your daily activities more slowly than normal. ?Eat foods that are soft and easy to digest. Take rmck-pvp-xljionm or prescription medicines only as told by your doctor. To help cramping and bloating: Try walking around. Put heat on your belly (abdomen) as told by your doctor. Use a heat source that your doctor recommends, such as a moist heat pack or a heating pad. ?Put a towel between your skin and the heat source. ?Leave the heat on for 20 30 minutes. ?Remove the heat if your skin turns bright red. This is especially important if you cannot feel pain, heat, or cold. You can get burned. Eating and drinking Drink enough fluid to keep your pee (urine) clear or pale yellow. Return to your normal diet as told by your doctor. Avoid heavy or fried foods that are hard to digest. Avoid drinking alcohol for as long as told by your doctor. Contact a doctor if: You have blood in your poop (stool) 2 3 days after the procedure. Get help right away if: You have more than a small amount of blood in your poop. You see large clumps of tissue (blood clots) in your poop. Your belly is swollen. You feel sick to your stomach (nauseous). You throw up (vomit). You have a fever. You have belly pain that gets worse, and medicine does not help your pain. Summary After the procedure, it is common to have a small amount of blood in your poop. You may also have mild cramping and bloating in your belly. For the first 24 hours after the procedure, do not drive or use machinery, do not sign important documents, and do not drink alcohol. Get help right away if you have a lot of blood in your poop, feel sick to your stomach, have a fever, or have more belly pain. This information is not intended to replace advice given to you by your health care provider. Make sure you discuss any questions you have with your health care provider. Document Released: 03/26/2011 Document Revised: 12/22/2017 Document Reviewed: 11/15/2016 [employer] Patient Education 2020 [employer]. Follow Up Care 05/12/2022 14:43:57 With:DB TRUJILLO Address: [address] [place] [address]- [phone] When: Unknown [facility] 03-15-2023 Anesthesiology Consult note Patient: RAMIRO LALA Age: 72 years Sex: Male : 1950 Associated Diagnoses: None Author: AISHWARYA WATKINS Assessment Postanesthesia assessment Vitals: Reviewed Results: Vital signs from flowsheet : Vital Signs(Date Range: 05/18/2022 0:00 EDT -05/19/2022 9:17 EDT) . Mental status: at preoperative baseline. Respiratory function: lungs are clear to auscultation. Respiratory support: none. CV function: Normal rate. Cardiovascular support: none. Pain. Nausea status: denies nausea. Postoperative hydration status: within normal limits. Digitally Signed by AISHWARYA WATKINS on 05/19/2022 09:18 AM [facility]03-15-2023 Summary of episode note Discharge Instructions Thank you for allowing [facility] to assist you with your healthcare needs. The following is importantdischarge information regarding your hospital visit. Your Care Team DB TRUJILLO What to do next Instructions From Your Doctor Brooks Marcus today Follow Up Appointments Follow Up with DB TRUJILLO When Where: [place] [address] [phone] The Following Activity and Diet Have Been Ordered for You Discharge Activity - Ordered -- Driving Restricted, No driving until tomorrow, 05/19/22 8:39:00 EDT Discharge Return to Work, School, or Sports - Ordered -- May return to: work, 05/19/22 8:39:00 EDT Discharge Diet - Ordered -- Type of Diet: Regular Diet, 03/15/23 8:39:00 EDT Allergies NKA Medications Please ask your primary doctor or pharmacist before taking any other medication not listed, including over the counter drugs, herbal medications, vitamins and or supplements as they may interact withyour home medications. What How Much When Why Instructions Last Dose Unchanged apixaban (Eliquis 5 mg oral tablet) 1 tab(s) by mouth Two (2) times a day Unchanged bicalutamide (bicalutamide 50 mg oral tablet) take 1 tablet by mouth once daily Unchanged fluticasone nasal (Flonase 50 mcg/ inh nasal spray) 2 spray(s) each nostril Once a day (in the morning) Sinusitis Duration: 30 Days Unchanged loratadine (loratadine 10 mg oral tablet) 1 tab(s) by mouth Once a day Acute sinusitis Unchanged metoprolol (metoprolol tartrate 25 mg oral tablet) 1 tab(s) by mouth Two (2) times a day Atrial fibrillation Please take this list to your next doctor s visit. Bring all medications you take, including over the counter medications, herbals and other supplements with you to your doctor s visit. Patients and families are reminded to discard old lists and to update any records with all medication providers or retail pharmacies. Education Materials Monitored Anesthesia Care, Care After These instructions provide you with information about caring for yourself after your procedure. Your health care provider may also give you more specific instructions. Your treatment has been plannedaccording to current medical practices, but problems sometimes occur. Call your health care provider if you have any problems or questions after your procedure. What can I expect after the procedure? After your procedure, you may: Feel sleepy for several hours. Feel clumsy and have poor balance for several hours. Feel forgetful about what happened after the procedure. Have poor judgment for several hours. Feel nauseous or vomit. Have a sore throat if you had a breathing tube during the procedure. Follow these instructions at home: For at least 24 hours after the procedure: Have a responsible adult stay with you. It is important to have someone help care for you until youare awake and alert. Rest as needed. Do not: ? Participate in activities in which you could fall or become injured. ? Drive. ? Use heavy machinery. ? Drink alcohol. ? Take sleeping pills or medicines that cause drowsiness. ? Make important decisions or sign legal documents. ? Take care of children on your own. Eating and drinking Follow the diet that is recommended by your health care provider. If you vomit, drink water, juice, or soup when you can drink without vomiting. Make sure you have little or no nausea before eating solid foods. General instructions Take jjzj-eda-acdxnqp and prescription medicines only as told by your health care provider. If you have sleep apnea, surgery and certain medicines can increase your risk for breathing problems. Follow instructions from your health care provider about wearing your sleep device: ? Anytime you are sleeping, including during daytime naps. ? While taking prescription pain medicines, sleeping medicines, or medicines that make you drowsy. If you smoke, do not smoke without supervision. Keep all follow-up visits as told by your health care provider. This is important. Contact a health care provider if: You keep feeling nauseous or you keep vomiting. You feel light-headed. You develop a rash. You have a fever. Get help right away if: You have trouble breathing. Summary For several hours after your procedure, you may feel sleepy and have poor judgment. Have a responsible adult stay with you for at least 24 hours or until you are awake and alert. This information is not intended to replace advice given to you by your health care provider. Make sure you discuss any questions you have with your health care provider. Document Released: 06/13/2016 Document Revised: 05/22/2018 Document Reviewed: 06/13/2016 [employer] Patient Education 2020 [employer]. Colonoscopy, Adult, Care After This sheet gives you information about how to care for yourself after your procedure. Your doctor may also give you more specific instructions. If you have problems or questions, call your doctor. What can I expect after the procedure? After the procedure, it is common to have: A small amount of blood in your poop for 24 hours. Some gas. Mild cramping or bloating in your belly. Follow these instructions at home: General instructions For the first 24 hours after the procedure: ? Do not drive or use machinery. ? Do not sign important documents. ? Do not drink alcohol. ? Do your daily activities more slowly than normal. ? Eat foods that are soft and easy to digest. Take rhxm-sze-ahuqfiv or prescription medicines only as told by your doctor. To help cramping and bloating: Try walking around. Put heat on your belly (abdomen) as told by your doctor. Use a heat source that your doctor recommends, such as a moist heat pack or a heating pad. ? Put a towel between your skin and the heat source. ? Leave the heat on for 20 30 minutes. ? Remove the heat if your skin turns bright red. This is especially important if you cannot feel pain, heat, or cold. You can get burned. Eating and drinking Drink enough fluid to keep your pee (urine) clear or pale yellow. Return to your normal diet as told by your doctor. Avoid heavy or fried foods that are hard to digest. Avoid drinking alcohol for as long as told by your doctor. Contact a doctor if: You have blood in your poop (stool) 2 3 days after the procedure. Get help right away if: You have more than a small amount of blood in your poop. You see large clumps of tissue (blood clots) in your poop. Your belly is swollen. You feel sick to your stomach (nauseous). You throw up (vomit). You have a fever. You have belly pain that gets worse, and medicine does not help your pain. Summary After the procedure, it is common to have a small amount of blood in your poop. You may also have mild cramping and bloating in your belly. For the first 24 hours after the procedure, do not drive or use machinery, do not sign important documents, and do not drink alcohol. Get help right away if you have a lot of blood in your poop, feel sick to your stomach, have a fever, or have more belly pain. This information is not intended to replace advice given to you by your health care provider. Make sure you discuss any questions you have with your health care provider. Document Released: 03/26/2011 Document Revised: 12/22/2017 Document Reviewed: 11/15/2016 [employer] Patient Education 2020 [employer] Additional Information VACCINATE! IT SAVES LIVES! Members of the community who have not yet received the COVID-19 vaccine and would like to receive it can visit one of [facility] vaccine clinics. There are many vaccine clinic locations within the [facility]. For locations and available times, please visit [email or web address].[place].gov/. It is important to note that some COVID mobile vaccine clinics are held outdoors and may be canceled in rainy or stormy conditions. To learn more about pediatric vaccinations (ages 5-11), we invite you to visit the [facility] webpage. https://www.[email or web address].org/pages/5012-Ofbif-Lesbdengoap-Lxmlcgjqgz-Lopuj-Ctf stions.htmlTo learn more about the COVID-19 vaccine, we invite you to visit the CDC website for a list of frequently asked questions. https://www.cdc.gov/coronavirus/2019-ncov/vaccines/faq.html [employer] Patient Portal Access Instructions: Stay connected with your healthcare team and access your personal medical information anytime with the [employer] Patient Portal.If you would like a full copy of your medical records, please contact the [facility] Medical Records Department, Tuesday through Tuesday between 8a.m. and 4:30p.m. Please follow the directions below to access the portal: 1.Access the email account you provided upon registration to the [facility].2.Look for an invitation email from [facility].3.Open the email and access the invitation link: Accept Invitation to [employer]4.Fill in the required amaya to create your account. Sign into [email or web address] with your username and password that you created in the above steps to stay up to date. You can then view a summary of results, a summary of your visits, and the ability to download your summaries to your computer or send the information securely to a physician. Remember that your healthcare information is confidential, so carefully consider who you will allow to register on the [employer] Patient Portal for access to your information. You can also access the [employer] Patient Portal on the [employer]. Simply click on Health Records under [employer] and then click on the [employer] logo. HOW TO SAFELY DISPOSE OF PRESCRIPTION MEDICATIONS Please use one of the following methods to safely dispose of your unused medications. 1.Use a drug disposal kit: the drug disposal pouch allows you to safely discard your old and unuseddrugs. Ask your nurse to give you one when you are discharged.2.Visit a local take-back location: Many local pharmacies and police departments have programs that collect old and unwanted prescriptiondrugs. Call your local pharmacy or go to http://[employer]/0F2Ov0e to find one close to you.3.Make use of household items: Use cat litter or old coffee grounds to dispose medications if other options arenot available. Mix your drugs with these household products, seal them in an airtight container andthrow it into the garbage. Call [facility]: [phone] to be sure your drugs can be disposed of in this way. Some medicines may require a different approach.4.Never flush your medications down the toilet. IF YOU HAVE BEEN PRESCRIBED AN OPIOID FOR PAIN If you have been prescribed an opioid (such as hydrocodone, oxycodone or morphine), it is critical to understand the possible side effects and risks of opioid pain medications. Even when taken as directed, opioids can have several side effects including: Tolerance, meaning you might need to take more of a medication for the same pain relief. Nausea, vomiting and/or constipation. Sleepiness, dizziness, dry mouth, confusion, depression or itching. Physical dependence, meaning you have withdrawal symptoms when a medication is stopped, can develop within a few days. KNOW YOUR RESPONSIBILITIES It is important to know exactly how much and how often to take the opioid pain medications you are prescribed. Never take opioids in higher amounts or more often than prescribed. Do not combine opioids with alcohol or other drugs that cause drowsiness, such as benzodiazepines, also known as benzos, including diazepam and alprazolam, muscle relaxants or sleep aids. Never sell or share prescription opioids. This is illegal. Store opioids in a secure place and out of reach of others (including children, family, friends and visitors). The last page of this document has been signed and retained as a CHART COPY. Signatures Patient Education Materials Monitored Anesthesia Care, Care After Colonoscopy, Adult, Care After, Jrey-xa-Skqq Medication Leaflets My discharge plan and instructions have been reviewed and explained to me and IDAI DAVID W understand my current condition and have read and understand these discharge instructions. I have received a written copy of the plan/instructions. If I have questions, I am aware that I should contact my doctor. Patient/Clinical Psychiatrist Signature: Date/Time: Relationship to Patient: Witness Name/Signature: Date/Time: [facility]03-15-2023 Anesthesiology Consult note Patient: RAMIRO LALA Age: 72 years Sex: Male : 1950 Associated Diagnoses: None Author: AISHWARYA WATKINS Preoperative Information Time of last food or liquid consumption: 05/19/2022 00:00:00 Anesthesia history Patient's history: negative. Family's history: negative. Health Status Allergies: Allergic Reactions (Selected) NKA, Allergies (1) ActiveReaction NKANone Documented Current medications: (Selected) Prescriptions Prescribed Flonase 50 mcg/inh nasal spray: 2 spray(s), Nostril, each, qAM, for 30 day(s), 16 gram(s), 0 Refill(s) loratadine 10 mg oral tablet: 10 mg, 1 tab(s), Oral, qDay, 30 tab(s), 0 Refill(s) metoprolol tartrate 25 mg oral tablet: 25 mg, 1 tab(s), Oral, BID, 60 tab(s), 0 Refill(s) Documented Medications Documented Eliquis 5 mg oral tablet: 5 mg, 1 tab(s), Oral, BID, 180 tab(s), 0 Refill(s) bicalutamide 50 mg oral tablet: take 1 tablet by mouth once daily, No qualifying data available Problem list: Medical Atrial fibrillation / SNOMED CT 40354971 / Confirmed BMI 34.0-34.9,adult / SNOMED CT 830211713 / Confirmed Anticoagulated / SNOMED CT 600539827 / Confirmed Prostate cancer / SNOMED CT 9636700537 / Confirmed Obese / SNOMED CT 3690525047 / Confirmed Screening for ischemic heart disease / SNOMED CT 370625212 / Confirmed Screening for diabetes mellitus / SNOMED CT 656308828 / Confirmed Screening for osteoporosis / SNOMED CT 749293550 / Confirmed Screening for colon cancer / SNOMED CT 498612360 / Confirmed 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/antiplatelets / SNOMED CT 370288191 / Confirmed Colon polyp / SNOMED CT 831139226 / Confirmed Post-viral cough syndrome / SNOMED CT 3507568952 / Confirmed Prostate mass / SNOMED CT 672180009 / Confirmed Non-tobacco user / SNOMED CT 939915795 / Confirmed Cough syncope / SNOMED CT 011433943 / Confirmed, Active Problems (15) Anticoagulated Atrial fibrillation BMI 34.0-34.9,adult Colon polyp Cough syncope 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 Vasectomy (83433537). Hand (678086018). Comments: 09/23/2021 17:24 EDT WINIFRED Smith left hand I&D Cardiac catheterization (76535665). Hernia (419762722). Comments: 09/23/2021 17:23 EDT WINIFRED Smith umbilical Tonsillectomy (676321752). Social History Social & Psychosocial Habits Alcohol 06/05/2020 Use: Never Substance Abuse 06/05/2020 Use: Never Tobacco 06/05/2020 Tobacco Use: Never (less than 100 in l Nutrition/Health 06/05/2020 Caffeine intake amount: 1 cup of coffee daily . Physical Examination No qualifying data available General: Alert and oriented. Airway: Normal temporomandibular joint mobility. Mallampati classification: II (soft palate, fauces, uvula visible). Head: Normocephalic. Dentition Evaluation: Intact. Neck: Supple. Respiratory: Lungs are clear to auscultation. Cardiovascular: Normal rate. Heart Sounds: Normal. Gastrointestinal: Soft. Musculoskeletal Normal range of motion. Integumentary: Intact. Neurologic: Alert. Review / Management Results review: No qualifying data available , Lab results: 05/19/2022 7:17 [facility] History and Physical . Assessment and Plan [place] [employer] of Anesthesiologists (ASA) physical status classification: Class III. Anesthetic Preoperative Plan Premedication: None. Anesthetic technique: MAC. Induction: intravenously. Postoperative pain management: Per surgeon. Risks discussed: nausea, vomiting, headache, sore throat, dental injury, hypotension, allergic reaction, serious complications. Informed consent: signed by patient. Digitally Signed by AISHWARYA WATKINS on 05/19/2022 08:37 AM [facility]03-15-2023 Note [place] ADMISSION HISTORY AND PHYSICIAL CHIEF COMPLAINT: Personal history of colon polyps HISTORY OF PRESENT ILLNESS: Personal history of colon polyps, last colonoscopy 3 to 4 years ago REVIEW OF SYSTEMS: Constitutional: denies weight loss Cardiovascular:denies chest pain, palpitations Respiratory:denies shortness of breath Gastrointestinal:no abd pain Musculoskeletal: no arthralgias Skin: no rashes . 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/antiplatelets (715650973) Non-tobacco user (128414560) Obese (3918146952) Post-viral cough syndrome (9960887704) Prostate cancer (3673363897) Prostate mass (429187930) Screening for colon cancer (798871599) Screening for diabetes mellitus (352933228) Screening for ischemic heart disease (982025765) Screening for osteoporosis (709570196) MEDICATIONS: Active Inpt Meds: None Active PRN Meds: None One Time Meds: None Active IV Meds: None ALLERGIES: (1) NKA FAMILY HISTORY: SOCIAL HISTORY: PHYSICAL EXAM: VITALS: No Data Available 24 Hr Tmax: No Data Available 36 Hr Tmax: No Data Available Vital Signs are the last 5 in the past 48 hours. Weights display the last 5 within 7 days. Initial Wt: No Data Available Current Wt: No Data Available physical exam alert and oriented cardio; regular without murmur pulm; clear abd; soft, nontender LABS: No 36hr Lab Data IMPRESSION: Personal history of colon polyps, high risk PLAN: Colonoscopy with polypectomy was discussed in the office. Cardiology and antiplatelet recommendations were made. Eliquis has been recommended to be held for 4 days prior to the procedure Digitally Signed by LAURIE QUINONES DO on 05/19/2022 07:19 AM [facility]07-27-2022 SARS-CoV-2 (COVID-19) RNA AYLIN+probe Ql (Nph)Negative (09/30/21 12:00 PM)AO Auto Urine SSEvaluation + Plan note No data available for this section [facility] Hospital Discharge instructions No data available for this section [facility] Progress note No data available for this section [facility] Summary Purpose Family History No Family History Records Found No data available for this section No data available for this section No data available for this section No Family History Records Found Advance Directives No Advanced Directives Records FoundNo Advanced Directives Records Found Additional Source Comments (unrecognized sect ion and content) No Status Records FoundNo Status Records Found INFORMATION SOURCE (unrecogn ized section and content) DATE CREATED AUTHOR AUTHOR'S ORGANIZ ATION 02/08/2023 [facility] ([place] Care Team (unrecognized sect ion and content) Personnel Name: DB TRUJILLO Address: [address] [facility] [address] Care Team Personnel Name: DB TRUJILLO Position: P4 Advanced Pipe Jeeper Member Role: Primary Care Physician Address: Address: [address] [facility] [place] [address]- [place] Name: FAVIAN ROBLES MD Member Role: Safety Security Officer Address: Address: [address] [facility] [facility] [address] [place] [address]- Name: CODY BROWN MD Position: P3 Physician - Urologist Member Role: Urologist Address: Address: [address] [place] [address] [address] [place], [place] [address] Care Team Related Persons Name: KARLY LALA Care Team Personnel Name: LORSON, DB BLOWER OPERATOR-SKOOG PATCHING MACHINE OPERATOR Position: P4 Advanced Pipe Jeeper Member Role: Primary Care Physician Address: Address: [address] [place] [address]- Name: FAVIAN ROBLES MD Member Role: Safety Security Officer Address: Address: [address] [facility] [address] [place], [place] [id number]- Name: CODY BROWN MD Position: P3 Physician - Urologist Member Role: Urologist Address: Address: [address] [facility] [facility] [address] [place] [address]- Care Team Related Persons Name: KARLY LALA Care Team Personnel Name: DB TRUJILLO APRN-SKOOG PATCHING MACHINE OPERATOR Position: P4 Advanced Pipe Jeeper Member Role: Primary Care Physician Address: Address: [address] [place] [address]- Name: FAVIAN ROBLES MD Member Role: Safety Security Officer Address: Address: [address] [place] [address]- Name: CODY BROWN MD Position: P3 Physician - Urologist Member Role: Urologist Address: Address: [address] [place] [address]- Care Team Related Persons Name: KARLY LALA Care Team Personnel Name: DB TRUJILLO APRN-SKOOG PATCHING MACHINE OPERATOR Position: P4 Advanced Pipe Jeeper Member Role: Primary Care Physician Address: Address: [address] [place] [address]- Name: FAVIAN ROBLES MD Member Role: Safety Security Officer Address: Address: [address] [place] [address]- Name: CODY BROWN MD Position: P3 Physician - Urologist Member Role: Urologist Address: Address: [address] [place] [address]- Care Team Related Persons Name: KARLY LALA Care Team (unrecognized sect ion and content) Care Team Personnel Name: DB TRUJILLO APRN-SKOOG PATCHING MACHINE OPERATOR Position: P4 Advanced Practice Nurse Med Service: Active Provider Member Role: Primary Care Physician Address: Address: [address] [place] [address]- Care Team Related Persons Name: KARLY LALA FOR RECORDS PERTAINING TO PATIENTS WHO ARE OR HAVE BEEN ENROLLED IN A CHEMICAL DEPENDENCY/SUBSTANCEABUSE PROGRAM, SOME INFORMATION MAY BE OMITTED. This clinical summary was aggregated from multiple sources. Caution should be exercised in using it in the provision of clinical care. This summary normalizes information from multiple sources, and as a consequence, information in this document may materially change the coding, format and clinical context of patient data. In addition, data may be omitted in some cases. CLINICAL DECISIONS SHOULD BE BASED ON THE PRIMARY CLINICAL RECORDS. [facility]. provides no warranty or guarantee of the accuracy or completeness of information in this document.
[2023-04-11 11:22] LABS: PSA,Total- Diagnostic < 0.01 ng/mL (0.0-4.0)
== END | disposition home or self-care (01) ==
PROVIDERS: PCP Nurse Practitioner Family; Referring Provider Urology; Visit Provider Urology
DX: C61 Malignant neoplasm of prostate (principal)
CPT/HCPCS: 36415; 84153

== ENCOUNTER → 2023-04-18 | Outpatient (CLI) | payer MEDICARE, SELFPAY ==
--- OUTSIDE RECORDS SUMMARY | 2023-04-18 08:59 | XMS RPT_ITS | CCD ---
Author Name Unknown Address [address] [place] [address] Organization [facility] Care Team Providers Care Cannon Fire Direction Specialist Name Role Phone RONNIE JOHNSONFINANCIAL ANALYST ACCOUNTANT, DB Primary Care Physician EDISONSON COMMERCIAL LEASING AGENT-FINANCIAL ANALYST ACCOUNTANT, DB Primary Care Unavail able LAURIE QUINONES DO Attending Unavailable LORSON COMMERCIAL LEASING AGENT-FINANCIAL ANALYST ACCOUNTANT, DB Primary Care Unavail able LORSON COMMERCIAL LEASING AGENT-FINANCIAL ANALYST ACCOUNTANT, DB Attending Unavail able LORSON COMMERCIAL LEASING AGENT-FINANCIAL ANALYST ACCOUNTANT, DB Attending Unavail able LORSON COMMERCIAL LEASING AGENT-FINANCIAL ANALYST ACCOUNTANT, DB Referring Unavail able LORSON COMMERCIAL LEASING AGENT-FINANCIAL ANALYST ACCOUNTANT, DB Primary Care Unavail able LORSON COMMERCIAL LEASING AGENT-FINANCIAL ANALYST ACCOUNTANT, DB Attending Unavail able LORSON COMMERCIAL LEASING AGENT-FINANCIAL ANALYST ACCOUNTANT, DB Primary Care Unavail able LORSON COMMERCIAL LEASING AGENT-FINANCIAL ANALYST ACCOUNTANT, [place] Primary Care Unavail able MONTSE COMMERCIAL LEASING AGENT-FINANCIAL ANALYST ACCOUNTANT, JEAN PAUL Attending Sushil calero Medications Current [...] cap(s), 0 Refill(s), 10/04/21 14:34:00 EDT, Pharmacy: [facility] #[id number], 183, cm, 09/23/21 16:36:00 EDT, Height Start [...] qDay, # 30 tab(s), 0 Refill(s), Pharmacy: [id number][id number], Acute sinusitis, 183.5, cm, 03/09/22 8:02:00 EST, [...] Pressure Non-Invasive 78 1 LAURIE STACIE DO [facility] 05-19-2022 09:22-0400 Heart rate 65 /min LAURIE STACIE DO [facility] 05-19-2022 09:22-0400 Respiratory rate 15 /min LAURIE STACEI DO [facility] 05-19-2022 09:22-0400 Systolic Blood Pressure Non-Invasive 144 1 LAURIE STACIE DO [facility] 05-19-2022 09:15-0400 Diastolic Blood Pressure Non-Invasive 80 1 LAURIE STACIE DO [facility] 05-19-2022 09:15-0400 Heart rate 71 /min LAURIE STACIE DO [facility] 05-19-2022 09:15-0400 Respiratory rate 15 /min LAURIE STACIE DO [facility] 05-19-2022 09:15-0400 Systolic Blood Pressure Non-Invasive 127 1 LAURIE STACIE DO [facility] 05-19-2022 09:04-0400 Body temperature 96.8 [degF] LAURIE STACIE DO [facility] 05-19-2022 09:04-0400 Diastolic Blood Pressure Non-Invasive 74 1 LAURIE STACIE DO [facility] 05-19-2022 09:04-0400 Heart rate 67 /min LAURIE STACIE DO [facility] 05-19-2022 09:04-0400 Respiratory rate 15 /min LAURIE STACIE DO [facility] 05-19-2022 09:04-0400 Systolic Blood Pressure Non-Invasive 112 1 LAURIE STACIE DO [facility] 05-19-2022 08:55-0400 Respiratory Rate - Anes 14 br/min LAURIE STACIE DO [facility] 05-19-2022 08:50-0400 Respiratory Rate - Anes 17 br/min LAURIE STACIE DO [facility] 05-19-2022 08:43-0400 Body temperature 97.52 [degF] LAURIE STACIE DO [facility] 05-19-2022 08:43-0400 Heart rate 74 /min LAURIE BEACHY DO [facility] 05-19-2022 08:38-0400 Body height 183.5 cm LAURIE BEACHY DO [facility] 05-19-2022 08:38-0400 Body weight 115.9 kg LAURIE QUINONES DO [facility] 05-19-2022 08:38-0400 Body weight 34.42 kg/m2 LAURIE BEACHY DO [facility] Encounters Encounter Date Encounter Type Care Provider Facility Start: 02-07-2023 End: 02-08-2023 ambulatory DB TRUJILLO COMMERCIAL LEASING AGENT-FINANCIAL ANALYST ACCOUNTANT Facility:B Start: 11-22-2022 End: 11-23-2022 ambulatory DB RONNIE COMMERCIAL LEASING AGENT-FINANCIAL ANALYST ACCOUNTANT Facility:B Start: 11-22-2022 End: 11-22-2022 Patient encounter procedure DB HOGANCHARMAINE COMMERCIAL LEASING AGENT-FINANCIAL ANALYST ACCOUNTANT [facility] Start: 09-30-2022 End: 10-19-2022 ambulatory DB TRUJILLO COMMERCIAL LEASING AGENT-FINANCIAL ANALYST ACCOUNTANT Facility:B Start: 09-30-2022 End: 10-19-2022 Physical therapy management DB RONNIE COMMERCIAL LEASING AGENT-FINANCIAL ANALYST ACCOUNTANT [facility] Start: 09-22-2022 End: 09-23-2022 ambulatory DB RONNIE COMMERCIAL LEASING AGENT-FINANCIAL ANALYST ACCOUNTANT Facility:B Start: 09-22-2022 End: 09-22-2022 Patient encounter procedure DB HOGANCHARMAINE COMMERCIAL LEASING AGENT-FINANCIAL ANALYST ACCOUNTANT [facility] Start: 05-19-2022 End: 03-16-2023 ambulatory DB TRUJILLO COMMERCIAL LEASING AGENT-FINANCIAL ANALYST ACCOUNTANT Facility:B Start: 05-19-2022 End: 05-19-2022 Minor Procedure LAURIE QUINONES DO [facility] Start: 09-30-2021 End: 09-30-2021 Patient encounter procedure DB TRUJILLO COMMERCIAL LEASING AGENT-FINANCIAL ANALYST ACCOUNTANT [facility] Start: 08-24-2021 End: 08-24-2021 Patient encounter procedure DB TRUJILLO COMMERCIAL LEASING AGENT-FINANCIAL ANALYST ACCOUNTANT [facility] Procedures Date Procedure Procedure Detail Performing Clinician Start: 05-19-2022 Colonoscopy LAURIE QUINONES DO Cardiac catheterization YOEL ESPERANZA HOGANCHARMAINE COMMERCIAL LEASING AGENT-FINANCIAL ANALYST ACCOUNTANT Catheter procedure DB OROPEZA COMMERCIAL LEASING AGENT-FINANCIAL ANALYST ACCOUNTANT Hand structure (body structure) DB TRUJILLO COMMERCIAL LEASING AGENT-FINANCIAL ANALYST ACCOUNTANT Immunizations Immunization Date Immunization Notes Care Provider [facility] 12-16-2020 influenza virus vaccine, unspecified formulation DB TRUJILLO COMMERCIAL LEASING AGENT-FINANCIAL ANALYST ACCOUNTANT [facility] 06-26-2020 SARS-CoV-2 (COVID-19 ) [id number] vaccine DB TRUJILLO COMMERCIAL LEASING AGENT-FINANCIAL ANALYST ACCOUNTANT [facility] Payers Date Payer Category Payer Medicare [id number] 1950 Unknown [id number] [id number] 1950 Unknown [id number] 2.16.8 [id number] 1950 Unknown [id number] [id number] [id number] 1950 Unknown [id number] [id number] [id number] 1950 Unknown [id number] 2.16.8 [id number] Social History Date Type Detail Facility Start: 06-05-2020 Tobacco smoking status Never s moked tobacco (finding) [facility] Sex Assigned At Male [facility] Functional Status Date Assessment Result Facility [...] increased lateral hip pain on the L [facility] 05-19-2022 Functional Status Maintained [facility] Mental Status Date Assessment Result Facility 05-19-2022 Mental Status Oriented x 4 [facility] Clinical Notes 09-30-2021 to 11-22-2022 Note Date & Type Note Facility [facility] 03-15-2023 Evaluation + Plan noteExtracted from: Title:Clinical Document Author:LAURIE QUINONES ate:05/19/22 [place] ADMISSION HISTORY AN D PHYSICIAL CHIEF COMPLAINT: Personal history of colon polyps HISTORY OF PRESENT ILLNESS: Personal history of colon polyps, last colonoscopy 3 to 4 years ago REVIEW OF SYSTEMS: Constitutional: denies weight loss Cardiovascular:denies chest pain, palpitations Respiratory:denies shortness of breath Gastrointestinal:no abd pain Musculoskeletal: no arthralgias Skin: no rashes . ACTIVE PROBLEMS: (15) Anticoagulated (588253753) Atrial fibrillation (45290312) BMI 34.0-34.9,adult (870224705) Colon polyp (806386964) Cough syncope (096935737) emt intermediate current use of antithrombotics/antiplatelets (475200322) Non-tobacco user (712762050) Obese (6122182820) Post-viral cough syndrome (0559785105) Prostate cancer (7955402308) Prostate mass (975749797) Screening for colon cancer (626160116) Screening for diabetes mellitus (255637084) Screening for ischemic heart disease (383596313) Screening for osteoporosis (291964842) MEDICATIONS: Active Inpt Meds: None Active PRN [...] for 4 days prior to the procedure [facility] 03-15-2023 Hospital Discharge instructions Patient Education [...] before eating solid foods. General instructions Take ijdi-kue-vhfadii and prescription medicines only as told by [...] 06/13/2016 Document Revised: 05/22/2018 Document Reviewed: 06/13/2016 [employer] Patient Education [employer]. 05/19/2022 08:47:53 Colonoscopy, Adult, Care After, Gyky-wx-Wmym Colonoscopy, Adult, Care After This sheet gives [...] are soft and easy to digest. Take lfwu-iaf-bqxvtjo or prescription medicines only as told by [...] 03/26/2011 Document Revised: 12/22/2017 Document Reviewed: 11/15/2016 [employer] Patient Education [employer]. Follow Up Care 05/12/2022 14:43:57 With:DB TRUJILLO Address: [address] [place] [phone] When: Unknown [facility] 03-15-2023 Anesthesiology Consult note Patient: RAMIRO [...] by AISHWARYA WATKINS on 05/19/2022 09:18 AM [facility]03-15-2023 Summary of episode note Discharge Instructions Thank you for allowing [facility] to assist you with your healthcare needs. The following is importantdischarge information regarding your hospital visit. Your Care Team DB TRUJILLO What to do next Instructions From Your Doctor Brooks Marcus today Follow Up Appointments Follow Up with DB TRUJILLO When Where: [place] [address] [phone] The Following Activity and Diet Have Been [...] before eating solid foods. General instructions Take yhdm-vkv-omebsjq and prescription medicines only as told by [...] 06/13/2016 Document Revised: 05/22/2018 Document Reviewed: 06/13/2016 [employer] Patient Education [employer]. Colonoscopy, Adult, Care After This sheet gives [...] are soft and easy to digest. Take bnxz-dey-otnzbwz or prescription medicines only as told by [...] 03/26/2011 Document Revised: 12/22/2017 Document Reviewed: 11/15/2016 [employer] Patient Education 2020 [employer] Additional Information VACCINATE! IT SAVES LIVES! Members of the community who have not yet received the COVID-19 vaccine and would like to receive it can visit one of [facility] vaccine clinics. There are many vaccine clinic locations within the [facility]. For locations and available times, please visit https://gettheshot.coronavirus.[place].gov/. It is important to note that some COVID mobile vaccine clinics are held outdoors and may be canceled in rainy or stormy conditions. To learn more about pediatric vaccinations (ages 5-11), we invite you to visit the [facility] webpage. https://www.[facility].org/pages/3390-Rmgec-Erjuoufvplj-Zhfjigzaxo-Hoxkk-Rnq stions.htmlTo learn more about the COVID-19 vaccine, we invite you to visit the CDC website for a list of frequently asked questions. https://www.cdc.gov/coronavirus/2019-ncov/vaccines/faq.html [facility] Patient Portal Access Instructions: Stay connected with your healthcare team and access your personal medical information anytime with the [facility] [employer] Patient Portal.If you would like a full copy of your medical records, please contact the [facility] Medical Records Department, Tuesday through Tuesday between 8a.m. and 4:30p.m. Please follow the directions below to access the portal: 1.Access the email account you provided upon registration to the [facility].2.Look for an invitation email from [facility].3.Open the email and access the invitation link: Accept Invitation to [facility]4.Fill in the required amaya to create your account. Sign into [email or web address] with your username and password that you [...] you will allow to register on the [facility] [employer] Patient Portal for access to your information. You can also access the [facility] Patient Portal on the Better[employer]. Simply click on Health Records under [employer] and then click on the [employer] logo. HOW TO SAFELY DISPOSE OF PRESCRIPTION [...] Call your local pharmacy or go to http://[place] [employer] [place].Edtrips/2Z1Ma8u to find one close to you.3.Make use of household items: Use cat litter or old coffee grounds to dispose medications if other options arenot available. Mix your drugs with these household products, seal them in an airtight container andthrow it into the garbage. Call [facility]: [phone] to be sure your drugs can be [...] Care, Care After Colonoscopy, Adult, Care After, [facility] Medication Leaflets My discharge plan and instructions have been reviewed and explained to me and IDAI DAVID W understand my current condition and have read and understand these discharge instructions. I have received a written copy of the plan/instructions. If I have questions, I am aware that I should contact my doctor. 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: Date/Time: Relationship to Patient: Witness Name/Signature: Date/Time: [facility]03-15-2023 Anesthesiology Consult note Patient: RAMIRO LALA [...] list: Medical Atrial fibrillation / SNOMED CT 89364637 / Confirmed BMI 34.0-34.9,adult / SNOMED CT 764344465 / Confirmed Anticoagulated / SNOMED CT 158345349 / Confirmed Prostate cancer / SNOMED CT 9926108601 / Confirmed Obese / SNOMED CT 7790368481 / Confirmed Screening for ischemic heart disease / SNOMED CT 815549963 / Confirmed Screening for diabetes mellitus / SNOMED CT 312736567 / Confirmed Screening for osteoporosis / SNOMED CT 814292133 / Confirmed Screening for colon cancer / SNOMED CT 446586666 / Confirmed custodial current use of antithrombotics/antiplatelets / SNOMED CT 292225247 / Confirmed Colon polyp / SNOMED CT 392792497 / Confirmed Post-viral cough syndrome / SNOMED CT 7613405144 / Confirmed Prostate mass / SNOMED CT 897476284 / Confirmed Non-tobacco user / SNOMED CT 750629543 / Confirmed Cough syncope / SNOMED CT 987280093 / Confirmed, Active Problems (15) Anticoagulated Atrial fibrillation BMI 34.0-34.9,adult Colon polyp Cough syncope custodial current use of antithrombotics/antiplatelets Non-tobacco user Obese Post-viral cough syndrome Prostate cancer Prostate mass Screening for colon cancer Screening for diabetes mellitus Screening for ischemic heart disease Screening for osteoporosis Histories Past Medical History: No active or resolved past medical history items have been selected or recorded., AF, BMI 30-35 Family History: Cancer Brother () Hypertension Mother Father Procedure history: Catheter procedure (357392157). Vasectomy (54783243). Hand (776481088). Comments: 09/23/2021 17:24 EDT WINIFRED Smith left hand I&D Cardiac catheterization (58379599). Hernia (804888148). Comments: 09/23/2021 17:23 EDT WINIFRED Smith umbilical Tonsillectomy (155349342). Social History Social & Psychosocial Habits Alcohol [...] data available , Lab results: 05/19/2022 7:17 [facility] History and Physical . Assessment and Plan [place] [employer] Anesthesiologists (ASA) physical status classification: Class III. Anesthetic Preoperative Plan Premedication: None. Anesthetic technique: MAC. Induction: intravenously. Postoperative pain management: Per surgeon. Risks discussed: nausea, vomiting, headache, sore throat, dental injury, hypotension, allergic reaction, serious complications. Informed consent: signed by patient. Digitally Signed by AISHWARYA WATKINS on 05/19/2022 08:37 AM [facility]03-15-2023 Note [place] ADMISSION HISTORY AND PHYSICIAL CHIEF COMPLAINT: Personal history of colon polyps HISTORY OF PRESENT ILLNESS: Personal history of colon polyps, last colonoscopy 3 to 4 years ago REVIEW OF SYSTEMS: Constitutional: denies weight loss Cardiovascular:denies chest pain, palpitations Respiratory:denies shortness of breath Gastrointestinal:no abd pain Musculoskeletal: no arthralgias Skin: no rashes . ACTIVE PROBLEMS: (15) Anticoagulated (797841903) Atrial fibrillation (15859767) BMI 34.0-34.9,adult (506467583) Colon polyp (825756273) Cough syncope (416243006) custodial current use of antithrombotics/antiplatelets (888672720) Non-tobacco user (390901637) Obese (2928182702) Post-viral cough syndrome (1989963969) Prostate cancer (4296791688) Prostate mass (120297753) Screening for colon cancer (133007136) Screening for diabetes mellitus (739158523) Screening for ischemic heart disease (549895173) Screening for osteoporosis (609202904) MEDICATIONS: Active Inpt Meds: None Active PRN [...] LAURIE QUINONES DO on 05/19/2022 07:19 AM [facility]07-27-2022 SARS-CoV-2 (COVID-19) RNA AYLIN+probe Ql (Nph)Negative (09/30/21 12:00 PM)AO Auto Urine SSEvaluation + Plan note No data available for this section [facility] Hospital Discharge instructions No data available for this section [facility] Progress note No data available for this section [facility] Summary Purpose Family History No Family [...] DATE CREATED AUTHOR AUTHOR'S ORGANIZ ATION 02/08/2023 [facility] ([place]) Care Team (unrecognized sect ion and content) Personnel Name: DB TRUJILLO Address: [address] [facility] [address] Care Team Personnel Name: DB TRUJILLO Position: P4 Advanced Access Database Developer Member Role: Primary Care Physician Address: Address: [address] [facility] [place] [address]- [place] Name: FAVIAN ROBLES MD Member Role: Stoker Erector And Servicer Address: Address: [address] [facility] [address] [place] [address]- Name: CODY BROWN MD Position: P3 Physician - Urologist Member Role: Urologist Address: Address: [address] [place] [address] [address] [place], [place] [address] Care Team Related Persons Name: KARLY LALA Care Team Personnel Name: LORSON, DB COMMERCIAL LEASING AGENT-FINANCIAL ANALYST ACCOUNTANT Position: P4 Advanced Access Database Developer Member Role: Primary Care Physician Address: Address: [address] [place] [address]- Name: FAVIAN ROBLES MD Member Role: Stoker Erector And Servicer Address: Address: [address] [facility] [address] [place], [place] [id number]- Name: CODY BROWN MD Position: P3 Physician - Urologist Member Role: Urologist Address: Address: [address] [facility] [address] [place] [address]- Care Team Related Persons Name: KARLY LALA Care Team Personnel Name: DB TRUJILLO APRN-FINANCIAL ANALYST ACCOUNTANT Position: P4 Advanced Access Database Developer Member Role: Primary Care Physician Address: Address: [address] [place] [address]- Name: FAVIAN ROBLES MD Member Role: Stoker Erector And Servicer Address: Address: [address] [place] [address]- Name: CODY BROWN MD Position: P3 Physician - Urologist Member Role: Urologist Address: Address: [address] [place] [address]- Care Team Related Persons Name: KARLY LALA Care Team Personnel Name: DB TRUJILLO APRN-FINANCIAL ANALYST ACCOUNTANT Position: P4 Advanced Access Database Developer Member Role: Primary Care Physician Address: Address: [address] [place] [address]- Name: FAVIAN ROBLES MD Member Role: Stoker Erector And Servicer Address: Address: [address] [place] [address]- Name: CODY BROWN MD Position: P3 Physician - Urologist Member Role: Urologist Address: Address: [address] [place] [address]- Care Team Related Persons Name: KARLY LALA Care Team (unrecognized sect ion and content) Care Team Personnel Name: DB TRUJILLO APRN-FINANCIAL ANALYST ACCOUNTANT Position: P4 Advanced Practice Nurse Med Service: Active Provider Member Role: Primary Care Physician Address: Address: [address] [place] [address]- Care Team Related Persons Name: KARLY LALA [...] BE BASED ON THE PRIMARY CLINICAL RECORDS. [facility] [employer] [facility]. provides no warranty or guarantee of the accuracy or completeness of information in this document.
== END | disposition home or self-care (01) ==
PROVIDERS: PCP Nurse Practitioner Family; Referring Provider Nurse Practitioner Family; Visit Provider Nurse Practitioner Family
DX: I48.0 Paroxysmal atrial fibrillation (principal); I49.3 Ventricular premature depolarization
CPT/HCPCS: 93225; 93226

== ENCOUNTER → 2023-07-08 | Outpatient (CLI) | payer MEDICARE, SELFPAY ==
[2023-07-08 10:11] LABS: PSA,Total- Diagnostic < 0.01 ng/mL (0.0-4.0)
== END | disposition home or self-care (01) ==
PROVIDERS: PCP Nurse Practitioner Family; Referring Provider Student in an Organized Health Care Education/Training Program; Visit Provider Student in an Organized Health Care Education/Training Program
DX: C61 Malignant neoplasm of prostate (principal)
CPT/HCPCS: 36415; 84153

== ENCOUNTER → 2023-10-05 | Outpatient (CLI) | payer MEDICARE, SELFPAY ==
[2023-10-05 09:49] LABS: Absolute Lymphocyte Count 1.51 X10^3/uL (0.83-4.51); Absolute Neutrophil Count 2.7 X10^3/uL (2.0-7.7); Basophil# 0.05 X10^3/uL; Hematocrit 43.9 % (40-54); Hemoglobin 14.5 g/dL (13.0-16.5); Lymphocyte # 1.51 X10^3/ul (0.83-4.51); Lymphocyte % 30.2 % (19-41); Mean Corpuscular Hgb 27.8 pg (27.0-32.0); Mean Corpuscular Volume 84.1 fL (80-94); Mean Platelet Vol. 11.4 fl (6.2-12.0); Monocyte# 0.54 X10^3/uL; Monocyte% 10.8 % (0-10); NRBC Flagged by Analyzer 0 % (0-5); Neutrophil # 2.69 X10^3/uL (2.7-7.7); Neutrophil % 53.8 % (47-70); Platelet Count 205 K/mm3 (150-450); RBC Distribution Width SD 42.7 fl (35.1-43.9); Red Blood Count 5.22 M/mm3 (4.6-6.2)
[2023-10-05 10:07] LABS: BNP,B-Type NATRIURETIC PEPTIDE 46.4 pg/mL (0-100)
[2023-10-05 10:17] LABS: Anion Gap 3 (5-15); BUN 14 mg/dL (7-18); BUN/Creat Ratio 14.4 RATIO (10-20); Chloride 107 mmol/L (98-107); Creatinine, Serum 0.98 mg/dL (0.70-1.30); EST Glomerular Filtration Rate 80 mL/min (>60); Est Glom Filt Rate - Afr Amer 97 mL/min (>60); Glucose 124 mg/dL (74-106); Magnesium 2.2 mg/dL (1.6-2.6); Potassium 3.9 mmol/L (3.5-5.1); Sodium Level 138 mmol/L (136-145); Thyroid Stim Hormone (TSH) 1.14 uIU/mL (0.358-3.74)
== END | disposition home or self-care (01) ==
LOC: LAB 09:09
PROVIDERS: PCP Nurse Practitioner Family; Referring Provider Physician Assistant Medical; Visit Provider Physician Assistant Medical
DX: I48.0 Paroxysmal atrial fibrillation (principal); I49.3 Ventricular premature depolarization; M79.89 Other specified soft tissue disorders; G47.10 Hypersomnia, unspecified; R06.09 Other forms of dyspnea; R53.83 Other fatigue; Z79.01 Long term (current) use of 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s
CPT/HCPCS: 36415; 80048; 83735; 83880; 84443; 85025

== ENCOUNTER → 2023-10-17 | Outpatient (CLI) | payer MEDICARE, SELFPAY ==
[2023-10-17 10:33] LABS: PSA,Total- Diagnostic < 0.01 ng/mL (0.0-4.0)
== END | disposition home or self-care (01) ==
LOC: LAB 09:31
PROVIDERS: PCP Nurse Practitioner Family; Referring Provider Urology; Visit Provider Urology
DX: C61 Malignant neoplasm of prostate (principal)
CPT/HCPCS: 36415; 84153; 84403

== ENCOUNTER → 2023-10-24 | Outpatient (CLI) | payer MEDICARE, SELFPAY | END | disposition home or self-care (01) | PROVIDERS: PCP Nurse Practitioner Family; Referring Provider Physician Assistant Medical; Visit Provider Physician Assistant Medical | DX: G47.33 Obstructive sleep apnea (adult) (pediatric) (principal) | CPT/HCPCS: 95811 ==

== ENCOUNTER → 2024-01-06 | Outpatient (CLI) | payer MEDICARE, SELFPAY ==
[2024-01-06 11:04] LABS: PSA,Total- Diagnostic < 0.01 ng/mL (0.0-4.0)
== END | disposition home or self-care (01) ==
LOC: LAB 09:56
PROVIDERS: PCP Nurse Practitioner Family; Referring Provider Student in an Organized Health Care Education/Training Program; Visit Provider Student in an Organized Health Care Education/Training Program
DX: C61 Malignant neoplasm of prostate (principal)
CPT/HCPCS: 36415; 84153

== ENCOUNTER → 2024-04-17 | Outpatient (CLI) | payer MEDICARE, SELFPAY ==
[2024-04-17 09:25] LABS: PSA,Total- Diagnostic < 0.01 ng/mL (0.0-4.0)
== END | disposition home or self-care (01) ==
LOC: LAB 08:26
PROVIDERS: PCP Nurse Practitioner Family; Referring Provider Nurse Practitioner; Visit Provider Nurse Practitioner
DX: C61 Malignant neoplasm of prostate (principal)
CPT/HCPCS: 36415; 84153

== ENCOUNTER → 2024-06-06 | Outpatient (CLI) | payer MEDICARE, SELFPAY | END | disposition home or self-care (01) | LOC: PSN 11:37 | PROVIDERS: PCP Nurse Practitioner Family; Referring Provider Physician Assistant Medical; Visit Provider Physician Assistant Medical | DX: I48.0 Paroxysmal atrial fibrillation (principal) | CPT/HCPCS: 93225; 93226 ==

== ENCOUNTER 2024-06-21 09:24 | Emergency (ER) | payer OTHER, SELFPAY ==
[2024-06-21] VITALS (7 sets, daily range): BP systolic 120–160; BP diastolic 68–80; PULSE 46–57; RESP 16–20; TEMP 36.5; O2SAT 95–98; BMI 38.4
--- NOTE | 2024-06-21 09:30 | EKG12_ITS ---
Test Reason : Blood Pressure : */* mmHG Vent. Rate : 59 BPM Atrial Rate : 59 BPM P-R Int : 238 ms QRS Dur : 102 ms QT Int : 474 ms P-R-T Axes : 63 32 34 degrees QTcB Int : 469 ms Sinus bradycardia with 1st degree A-V block Incomplete right bundle branch block Borderline ECG Confirmed by Nader Do ([id number]), production editor YVES NELSON ([id number]) on 06/22/2024 12:46:00 PM Referred By: Confirmed By: Nader Do
--- NOTE | 2024-06-21 09:34 | EDS_ITS ---
HPI History of Present Illness Chief Complaint: Palpitations Detail of Chief Complaint: Lightheadedness and bradycardia Informant: patient and spouse/S.O. Narrative Narrative: Patient presents to the emergency department with complaint of feeling lightheaded that started around 8 AM. Patient also states that his heart rate has been in the 40s this morning. He has had this happen before but usually resolves after about 15 minutes. He denies chest pain. Patient has history of A-fib and states that he was started on a new medication 4 days ago. He was started on amiodarone. He continues to take his apixaban and metoprolol. Patie nt denies recent illness. Denies syncope. [facility] Medical History Wears hearing aid Wears glasses Syncope Shortness of breath on exertion Leg cramps Nonrheumatic mitral (valve) insufficiency Encounter for education Atrial fibrillation Gross hematuria Nocturia Benign prostatic hyperplasia with lower urinary tract symptoms Elevated PSA Adenocarcinoma History of Holter monitoring History of echocardiogram History of left heart catheterization (LHC) (~04/12/01) Essential hypertension New onset atrial fibrillation Cancer Prostate disease Migraine headache Non-smoker Chronic cough History of stress test Cardiology follow-up encounter Home Medications ?Medication ?Instructions ?Recorded ?Last Taken ?Type apixaban 5 mg tablet (Eliquis) 5 mg PO BID blood thinn er #60 tabs 11/18/22 06/21/24 Rx furosemide 40 mg tablet 40 mg PO MOTUWETHFR 08/25/23 06/21/24 History multivitamin 1 tab PO DAILY 08/25/23 Unkn own History oxybutynin chloride 10 mg 10 mg PO QDAY 11/25/2306/21 History tablet,extended release 24 hr amlodipine 5 mg tablet 5 mg PO DAILY #90 tabs 05/2506/21/24 Rx metoprolol tartrate 25 mg tablet 25 mg PO BID #180 tab s 06/13/24 06/21/24 Rx amiodarone 200 mg tablet 200 mg PO BID 06/21/2406/21 History cetirizine 10 mg tablet (24Hour 10 mg PO DAILY PRN all ergy symptoms 06/21/24 Unknown History Allergy) Allergy/AdvReac Type Severity Reaction Status Date / Time No Known Allergies Allergy Verified 06/21/24 09:26 Family History Mother Hypertension Cancer Father Hypertension Surgical History Hx of radical prostatectomy S/P vasectomy History of robot-assisted laparoscopic radical prostatectomy Hx of cataract surgery Hx of colonoscopy Hx of umbilical hernia repair History of cystoscopy History of tonsillectomy and adenoidectomy Hx of vasectomy Hx of hand surgery Social History Smoking Status: Never smoker alcohol intake: current alcohol intake frequency: holidays/special occasions only substance use type: does not use caffeine: Yes Type: coffee Number of servings: 2 ROS ROS ED Review of Systems ROS Unobtainable: other Constitutional Constitutional ED: Reports lethargy; Denies chills, fever(s), sweats or weight loss Eyes Eyes: Denies blurry vision, change in vision or diplopia ENT ENT ED: Denies rhinorrhea or sore throat Cardiovascular Cardiovascular: Reports other Details: Bradycardia ; Denies chest pain, orthopnea or racing heartbeat Respiratory/Chest Respiratory/Chest: Denies cough, dyspnea, dyspnea on exertion, orthopnea or sputum Gastrointestinal Gastrointestinal: Denies abdominal pain, diarrhea, nausea or vomiting Genitourinary Genitourinary ED: Denies dysuria, hematuria or urinary frequency Musculoskeletal Musculoskeletal: Denies arthralgias, back pain, myalgias or neck pain Integumentary Denies abscess, Abrasions or rash Neurologic Neurologic: Reports other Details: Lightheadedness, no vertigo ; Denies headache(s) or weakness Psychiatric Psychiatric: Denies anxiety, depression or suicidal thoughts Endocrine Endocrinology: Denies polydipsia, polyphagia or polyuria Hematologic/Lymphatic Hematologic/Lymphatic: Denies easy bleeding, easy bruising or lymphadenopathy Allergic/Immunologic Allergic/Immunologic ED: Denies mouth swelling, tongue swelling or urticaria EXAM Physical Exam Const Vital Signs: 06/21/24 09:26 06/21/24 09:55 06/21/24 10:00 Temperature 97.7 F L Temperature Source Oral Pulse Rate 53 L 52 L Pulse Rate [Lying] 46 L Pulse Rate [Sitting (for 1 minute prior to obtaining)] 55 L Pulse Rate [Standing (for 1 minute prior to obtaining)] 57 L Respiratory Rate 18 16 Blood Pressure 160/80 H 135/70 H Blood Pressure [Lying] 135/73 H Blood Pressure [Sitting (for 1 minute prior to obtaining)] 143/76 H Blood Pressure [Standing (for 1 minute prior to obtaining)] 142/76 H Blood Pressure Mean 106 91 Blood Pressure Mean [Lying] 93 Blood Pressure Mean [Sitting (for 1 minute prior to obtaining)] 98 Blood Pressure Mean [Standing (for 1 minute prior to obtaining)] 98 Pulse Ox 95 95 Oxygen Delivery Method Room Air Nasal Cannula Oxygen Flow Rate (L/min) 2 06/21/24 11:25 06/21/24 11:39 Temperature Temperature Source Pulse Rate 51 L 51 L Pulse Rate [Lying] Pulse Rate [Sitting (for 1 minute prior to obtaining)] Pulse Rate [Standing (for 1 minute prior to obtaining)] Respiratory Rate 16 16 Blood Pressure 138/70 H 130/68 H Blood Pressure [Lying] Blood Pressure [Sitting (for 1 minute prior to obtaining)] Blood Pressure [Standing (for 1 minute prior to obtaining)] Blood Pressure Mean 92 88 Blood Pressure Mean [Lying] Blood Pressure Mean [Sitting (for 1 minute prior to obtaining)] Blood Pressure Mean [Standing (for 1 minute prior to obtaining)] Pulse Ox 96 96 Oxygen Delivery Method Nasal Cannula Nasal Cannula Oxygen Flow Rate (L/min) 2 2 Positive well nourished and well developed General Appearance ED: well developed and NAD HEENT Reports TM's clear and moist mucous membranes normocephalic and atraumatic; Negative for trauma or tenderness Tympanic Membrane ED: Yes TM's clear Eyes PERRL and EOMs intact bilaterally General Eye ED: Negative for pale conjunctiva or scleral icterus Neck no lymphadenopathy, supple and no JVD General: Negative for tenderness Chest Wall inspection of chest normal and palpation of chest normal Chest: Negative for tenderness Resp normal respiratory effort and clear to auscultation bilaterally Effort and Inspection: Negative for respiratory distress or pain with movement Auscultation: Negative for rhonchi, wheezes or diminished lung sounds Cardio regular rhythm, S1 normal heart sound, S2 normal heart sound and no murmurs; Negative for regular rate Rate: bradycardia Peripheral Pulses: pulses 2+ throughout GI normal to inspection, nondistended, normoactive bowel sounds, soft to palpation, non-tender, non-distended and no masses Back/Spine no CVA tenderness and no thoracic nor lumbar tenderness Extremity normal to inspection General Extremety ED: Negative for edema General Extremity: Negative for edema Neuro oriented x3, CN's II-XII intact bilaterally, no sensory deficits noted and gait normal Sensorium / Orientation: awake, alert, oriented to person, oriented to place and oriented to time Motor Exam: strength 5/5 throughout and strength abnormal Psych mental status grossly normal Skin no rashes or lesions noted and no wounds MDM MDM MDM Narrative Medical decision making narrative: Patient presents the emergency department with bradycardia and lightheadedness. Recently started amiodarone. He has history of A-fib. He took his blood pr essure medication around 5:30 AM and started feeling poorly between 7 and 8 AM. Clinically looks well. EKG obtained on arrival showed a sinus bradycardia with ventricular rate of 59 bpm with a first-degree AV block and incomplete right bundle branch block. Will obtain basic labs and will check orthostatic vital signs. Will give normal saline fluid bolus. Patient had orthostatic vital signs and were negative. CBC with elevated white 0.2 hemoglobin 14.6 and platelet count 165. Chemistries unremarkable. Troponin normal at 8. Discussed results with patient and he is feeling markedly improved now and symptoms of lightheadedness seem to have resolved. Heart rates been maintaining in the 50s. Patient states that he recently had his beta-huber decreased in half as he used to be on 50 mg twice daily and is now on 25 mg twice daily. Will discuss case with distribution a class lineman on-call. I spoke with Dr. Do cardiology on-call who recommended discontinuing the metoprolol and decreasing patient's amiodarone to 200 mg daily and outpatient follow-up with their office. Lab Data Attestation: I reviewed the patient's lab results. Labs: Laboratory Results - last 24 hr 06/21/24 09:32 WBC 6.2 RBC 5.16 Hgb 14.6 Hct 43.7 MCV 84.7 MCH 28.3 MCHC 33.4 RDW Std Deviation 42.5 RDW Coeff of Real 13.7 Plt Count 165 MPV 12.1 H Immature Gran % (Auto) 0.500 Neut % (Auto) 54.7 Lymph % (Auto) 27.9 [place] % (Auto) 12.7 H Eos % (Auto) 3.2 Baso % (Auto) 1.0 Absolute Neuts (auto) 3.4 Absolute Lymphs (auto) 1.74 Nucleated RBC % 0 Sodium 136 Potassium 4.2 Chloride 101 Carbon Dioxide 22.7 Anion Gap 12 BUN 16 Creatinine 0.98 Estim Creat Clear Calc 87.64 Est GFR (MDRD) Non-Af 81 BUN/Creatinine Ratio 16.2 Glucose 95 Calcium 9.2 Troponin T High Sens 8 EKG Initial EKG: Attestation: I personally reviewed and interpreted this EKG as follows: Comments: Sinus rhythm with rate of 59 bpm with first-degree AV block and incomplete right bundle branch block Prior EKG tracings: available for review Prior: Changed Discharge Plan Triage Chief Complaint: Palpitations ED Provider: Carly Adams Dx/Rx/DC Orders Clinical Impression: Dizziness, Bradycardia, History of atrial fibrillation Instructions: ED AFIB, ED Bradycardia, ED Dizziness, Uncertain Cause Prescriptions: No Action Eliquis 5 mg tablet 5 mg PO BID Qty: 60 0RF multivitamin Tablet 1 tab PO DAILY oxybutynin chloride 10 mg tablet extended release 24hr 10 mg PO QDAY amlodipine 5 mg tablet 5 mg PO DAILY Qty: 90 3RF furosemide 40 mg tablet 40 mg PO DAILY Patient Comments: 5 DAYS A WEEK Rx Instructions: Mon-Fri metoprolol tartrate 25 mg tablet 25 mg PO BID Qty: 180 3RF amiodarone 200 mg tablet 200 mg PO QDAY Qty: 180 0RF Rx Instructions: Take 1 pill twice a day for 7 days then once a day. Primary Care Provider: Aissatou Webster NP Referrals: Aissatou Webster NP, [employer] [Primary Care Provider] - Activity Restrictions/Additional Instructions: Discontinue your metoprolol Decrease your amiodarone dose to 200 mg daily Follow-up in the office with cardiology within the next 3 to 5 days. Print Language: Portuguese Disposition Disposition: Home, Self Care
[2024-06-21] MEDS: 0.9% Normal Saline (1000mL) 1,000 ML 1000 ML IV (09:37)
[2024-06-21 10:02] LABS: Absolute Lymphocyte Count 1.74 X10^3/uL (0.83-4.51); Absolute Neutrophil Count 3.4 X10^3/uL (2.0-7.7); Basophil# 0.06 X10^3/uL; Eosinophils% 3.2 % (0-5); Hematocrit 43.7 % (40-54); Hemoglobin 14.6 g/dL (13.0-16.5); Lymphocyte # 1.74 X10^3/ul (0.83-4.51); Lymphocyte % 27.9 % (19-41); Mean Corp Hgb Conc 33.4 g/dL (32-36); Mean Corpuscular Hgb 28.3 pg (27.0-32.0); Mean Corpuscular Volume 84.7 fL (80-94); Mean Platelet Vol. 12.1 fl (6.2-12.0); Monocyte# 0.79 X10^3/uL; Monocyte% 12.7 % (0-10); NRBC Flagged by Analyzer 0 % (0-5); Neutrophil # 3.41 X10^3/uL (2.7-7.7); Neutrophil % 54.7 % (47-70); Platelet Count 165 K/mm3 (150-450); RBC Distribution Width CV 13.7 % (11.6-14.6); RBC Distribution Width SD 42.5 fl (35.1-43.9); Red Blood Count 5.16 M/mm3 (4.6-6.2); White Blood Count 6.2 K/mm3 (4.4-11.0)
[2024-06-21 10:26] LABS: Anion Gap 12 (5-15); BUN 16 mg/dL (4-19); BUN/Creat Ratio 16.2 RATIO (10-20); Calcium,Total 9.2 mg/dL (7.6-11.0); Carbon Dioxide 22.7 mmol/L (21.0-32.0); Chloride 101 mmol/L (98-108); Creatinine, Serum 0.98 mg/dL (0.70-1.20); EST Glomerular Filtration Rate 81 (>60); Estimated Creatinine Clearance 87.64 ml/min (50-250); Glucose 95 mg/dL (70-99); Potassium 4.2 mmol/L (3.3-5.1); Sodium Level 136 mmol/L (133-145); Troponin T High Sensitivity 8 ng/L (<=22)
== END 2024-06-21 12:13 | disposition home or self-care (01) ==
PROVIDERS: Emergency Provider Emergency Medicine; PCP Nurse Practitioner Family; Visit Provider Emergency Medicine
DX: R42 Dizziness and giddiness (principal); I48.91 Unspecified atrial fibrillation; R00.1 Bradycardia, unspecified; I10 Essential (primary) hypertension; I34.0 Nonrheumatic mitral (valve) insufficiency; I44.0 Atrioventricular block, first degree; I45.10 Unspecified right bundle-branch block; N40.1 Benign prostatic hyperplasia with lower urinary tract symptoms; R35.1 Nocturia; Z90.79 Acquired absence of other genital organ(s); Z79.01 Long term (current) use of 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s; Z79.899 Other long term (current) drug therapy
CPT/HCPCS: 80048; 84484; 85025; 93005; 96360; 96361; 99285; A4216

== ENCOUNTER → 2024-07-06 | Outpatient (CLI) | payer MEDICARE, SELFPAY ==
[2024-07-06 09:56] LABS: PSA,Total- Diagnostic < 0.02 ng/mL (0.00-4.00)
== END | disposition home or self-care (01) ==
LOC: LAB 08:28
PROVIDERS: PCP Nurse Practitioner Family; Referring Provider Student in an Organized Health Care Education/Training Program; Visit Provider Student in an Organized Health Care Education/Training Program
DX: C61 Malignant neoplasm of prostate (principal); R97.21 Rising PSA following treatment for malignant neoplasm of prostate; Z19.1 Hormone sensitive malignancy status
CPT/HCPCS: 36415; 84153

== ENCOUNTER → 2024-08-21 | Outpatient (CLI) | payer MEDICARE, SELFPAY | END | disposition home or self-care (01) | LOC: PSN 07:57 | PROVIDERS: PCP Nurse Practitioner Family; Referring Provider Student in an Organized Health Care Education/Training Program; Visit Provider Student in an Organized Health Care Education/Training Program | DX: I48.0 Paroxysmal atrial fibrillation (principal) | CPT/HCPCS: 93225; 93226 ==

== ENCOUNTER → 2024-09-21 | Outpatient (CLI) | payer MEDICARE, SELFPAY ==
[2024-09-21 11:07] LABS: AST(SGOT) 27 U/L (<=37); Alanine Aminotransfer ALT/SGPT 29 U/L (<=46); Albumin, Serum 4.5 g/dL (3.4-4.8); Alkaline Phosphatase 94 U/L (40-129); Bilirubin, Direct 0.16 mg/dL (0.00-0.30); Globulin 2.9 g/dL (2.2-4.2)
== END | disposition home or self-care (01) ==
LOC: LAB 09:30
PROVIDERS: PCP Nurse Practitioner Family; Referring Provider Student in an Organized Health Care Education/Training Program; Visit Provider Student in an Organized Health Care Education/Training Program
DX: Z79.899 Other long term (current) drug therapy (principal)
CPT/HCPCS: 36415; 80076; 84443

== ENCOUNTER → 2024-09-24 | Outpatient (CLI) | payer MEDICARE, SELFPAY ==
--- OUTSIDE RECORDS SUMMARY | 2024-09-24 18:20 | XMS RPT_ITS | CCD ---
Author Organization [facility] Care Team Providers Care Cytogeneticist Name Role Phone AISSATOU CRUZ Primary Care Physician Darin LINK, FARIBA-C Aissatou Primary Care Provider Darin LINK NP-C Aissatou Referring Provider 1([facility] )[phone] Dr. Helio Lopez Attending Provider 1([facility])[phone] Darin LINK NP-C Aissatou Primary Care Provider Dr. Helio Lopez Attending Provider Dr. Aneudy Santiago Referring Provider [phone] Dr. Helio Lopez Referring Provider 1([facility])[phone] Dr. Helio Lopez Other Provider Dr. Helio Lopez Referring Provider 1([facility])[phone] Trey LINK NP-Gelacio Fernando Attending Provider Darin LINK NP-Gelacio Reyez Primary Care Provider Dr. Yoav Olivares Attending Provider Dr. Aneudy Santiago Referring Provider Darin LINK NP-Gelacio Reyez Referring Provider 1([facility] )[phone] Trey LINK NP-Gelacio Fernando Attending Provider Dr. Yoav Olivares Referring Provider Darin LINK NP-C Aissatou Primary Care Provider [phone] Darin LINK NP-C Aissatou Referring Provider 1([facility] )[phone] Dr. Yoav Olivares Attending Provider Virgen FENCE SUPERVISOR, FENCE SUPERVISOR-C Urmila Attending Provider Lorson FENCE SUPERVISOR, FENCE SUPERVISOR-C Vanduser Primary Care Provider Dr. Yoav Olivares Attending Provider Dr. Yoav Olivares Referring Provider Lorson FENCE SUPERVISOR, FENCE SUPERVISOR-C Aissatou Referring Provider [phone] Trey FENCE SUPERVISOR, FENCE SUPERVISOR-C Yvon Fernando Attending Provider Lorson FENCE SUPERVISOR, FENCE SUPERVISOR-C V[facility]user Primary Care Provider [phone] Lorson FENCE SUPERVISOR, FENCE SUPERVISOR-C Aissatou Referring Provider [phone] Trey FENCE SUPERVISOR, FENCE SUPERVISOR-C Yvon Fernando Attending Provider LORSON TRIAL ATTORNEY-CONCRETE CRAFTSMAN, [facility] Care Unavail able LAURIE QUINONES DO Attending Unavailable LORSON TRIAL ATTORNEY-CONCRETE CRAFTSMAN, ORINDA Primary Care Unavail able LORSON TRIAL ATTORNEY-CONCRETE CRAFTSMAN, AISSATOU Attending Unavail able LORSON TRIAL ATTORNEY-CONCRETE CRAFTSMAN, AISSATOU Attending Unavail able LORSON TRIAL ATTORNEY-CONCRETE CRAFTSMAN, ORINDA Referring Unavail able LORSON TRIAL ATTORNEY-CONCRETE CRAFTSMAN, ORINDA Primary Care Unavail able LORSON TRIAL ATTORNEY-CONCRETE CRAFTSMAN, AISSATOU Attending Unavail able LORSON TRIAL ATTORNEY-CONCRETE CRAFTSMAN, ORINDA Primary Care Unavail able LORSON TRIAL ATTORNEY-CONCRETE CRAFTSMAN, ORINDA Primary Care Unavail able MONTSE TRIAL ATTORNEY-CONCRETE CRAFTSMAN, JEAN PAUL Attending Sushil Trujillo FENCE SUPERVISOR, FENCE SUPERVISOR-C [facility] Care Provider [phone] Dr. Wagner Adkins Attending Provider [phone] Dr. Beto Huizar Referring Provider Dr. Yoav Olivares Attending Provider Darin FENCE SUPERVISOR, FENCE SUPERVISOR-C Vanduser Primary Care Provider Trey FENCE SUPERVISOR, FENCE SUPERVISOR-C Yvon Fernando Attending Provider Dr. Yoav Olivares Attending Provider Unavailable Primary Care Provider UnavailMAURICE Mayberry Attending Unavailable MARSHA TEMPLETON Referring Unavailable Lorson FENCE SUPERVISOR-C, [facility] Primary Care Provider Ling Beck Attending Provider [phone] Rye, Ling Referring Provider Lorson FENCE SUPERVISOR-C, [facility] Referring Provider [phone] Marsha Celis Attending Provider [phone] Marsha Celis Referring Provider [phone] LORSON TRIAL ATTORNEY-CONCRETE CRAFTSMAN, AISSATOU Attending Unavail able LORSON TRIAL ATTORNEY-CONCRETE CRAFTSMAN, ORINDA Primary Care Unavail able LORSON TRIAL ATTORNEY-CONCRETE CRAFTSMAN, AISSATOU Attending Unavail able LORSON TRIAL ATTORNEY-CONCRETE CRAFTSMAN, ORINDA Primary Care Unavail able Kim NARVAEZ, Dr. Barr Attending Provider Bryan , Dr. Carroll Emergency Provider [phone] [facility], Dr. Carroll Attending Provider [facility], Dr. Cason Attending Provider Marshall , Dr. Cason Referring Provider Keshawn Guzman Attending Provider [phone] Lorson FENCE SUPERVISOR-C, [facility] Primary Care Provider [phone] Keshawn Guzman Referring Provider [phone] Keshawn Saeed Referring Unavailable Momo Alvarez Attending Unavailable Lorson FENCE SUPERVISOR, [facility] Unavailable Yoav Olivares Referring Unavailable Yoav Olivares Attending Unavailable Lorson FENCE SUPERVISOR, [facility] Unavailable Lorson FENCE SUPERVISOR, [facility] Care Unavailable Carly Adams Attending Unavailable Lorson FENCE SUPERVISOR, [facility] Care Unavailable Marsha Celis Referring Unavail able Momo Alvarez Attending Unavailable Lorson FENCE SUPERVISOR, [facility] Care Unavailable Lorson FENCE SUPERVISOR, [facility] Referring Unavailable Marsha Celis Attending Unavail able Lorson FENCE SUPERVISOR, [facility] Care Unavailable Keshawn Saeed Referring Unavailable Keshawn Saeed Attending Unavailable Lorson FENCE SUPERVISOR, [facility] Care Unavailable Marsha Celis Attending Unavail able Marsha Celis Referring Unavail able Rye, Ling Referring Unavailable Rye, Ling Attending Unavailable Lorson FENCE SUPERVISOR, [facility] Care Unavailable Marsha Celis Attending Unavail able Lorson FENCE SUPERVISOR, [facility] Primary Care Unavailable Marsha Celis Referring Unavail able Darin FENCE SUPERVISOR, [facility] Unavailable Aneudy Santiago Referring Unavailable Aneudy Santiago Attending Unavailable Yoav Olivares Attending Unavailable Darin FENCE SUPERVISOR, [facility] Unavailable Lorcharmaine FENCE SUPERVISOR, [facility] Referring Unavailable Demiter, Keshawn Referring Unavailable Demtj Keshawn Attending Unavailable Lorson FENCE SUPERVISOR, [facility] Unavailable Demiter, Keshawn Referring Unavailable Lorson FENCE SUPERVISOR, [facility] Unavailable DemJeffery spenceryler Attending Unavailable Lorson FENCE SUPERVISOR, [facility] Unavailable Marsha Celis Referring Unavail able Marsha Celis Attending Unavail able Yoav Olivares Referring Unavailable Yoav Olivares Attending Unavailable Darin FENCE SUPERVISOR, [facility] Unavailable Lorson FENCE SUPERVISOR, [facility] Referring Unavailable Seamus Saeedr Attending Unavailable Lorson FENCE SUPERVISOR, [facility] Unavailable Lorson FENCE SUPERVISOR, [facility] Unavailable Lorson FENCE SUPERVISOR, [facility] Referring Unavailable Marsha Celis Attending Unavail able Darin FENCE SUPERVISOR, [facility] Unavailable Lorcharmaine FENCE SUPERVISOR, [facility] Referring Unavailable Marsha Celis Attending Unavail able Darin FENCE SUPERVISOR, [facility] Unavailable Lorson FENCE SUPERVISOR, [facility] Referring Unavailable Seaums Saeedr Attending Unavailable Yoav Olivares Attending Unavailable Lorson FENCE SUPERVISOR, [facility] Unavailable Medications Current Medications Medication Drug Class(es) Dates Sig (Normalized) Sig (Original) amiodarone hydrochloride 200 mg oral tablet (12 sources) Antiarrhythmic Start: 08-01-2024 take 1 tablet by mouth once daily Amiodarone 200 mg tablet Active 200 mg PO daily August 01, 2024 7:53am Start: 07-10-2024 End: 08-01-2024 Amiodarone 200 mg tablet Discontinued 200 mg PO .COMPLEX July 10, 2024 1:50pm August 01, 2024 7:54am 200 mg orally Twice daily x7days and then once a day after that Start: 06-25-2024 End: 07-10-2024 take 1 tablet by mouth once daily Amiodarone 200 mg tablet Discontinued 200 mg PO DAILY June 25, 2024 10:42am July 10, 2024 1:52pm Start: 06-14-2024 End: 06-25-2024 Amiodarone 200 mg tablet Discontinued 200 mg PO TWICE A DAY June 21, 2024 12:00am June 25, 2024 10:43am Take 1 pill twice a day for 7 days then once a day. amLODIPine 10 mg oral tablet (17 sources) Dihydropyridine Calcium Channel Hilary Start: 07-10-2024 take 1 tablet by mouth once daily Amlodipine 10 mg tablet Active 10 mg PO DAILY July 10, 2024 1:50pm Start: 05-25-2024 End: 07-10-2024 take 1 tablet by mouth once daily Amlodipine 5 mg tablet Discontinued 5 mg PO DAILY May 25, 2024 9:21am July 10, 2024 1:52pm Start: 08-25-2023 End: 05-25-2024 take 1 tablet by mouth once daily Amlodipine 10 mg tablet Discontinued 10 mg PO DAILY August 25, 2023 10:45am May 25, 2024 9:23am Start: 04-25-2023 End: 08-25-2023 take 1 tablet by mouth once daily Amlodipine 5 mg tablet Discontinued 5 mg PO DAILY April 25, 2023 1:00am August 25, 2023 10:46am benzonatate 200 mg oral capsule (1 source) Non-narcotic Antitussive Start: 09-29-2021 End: 10-04-2021 benzonatate 200 mg oral capsule Dose : 200 mg = 1 cap(s), Oral, TID, X 5 day(s), # 15 cap(s), 0 Refill(s), 10/04/21 14:34:00 EDT, [facility]: [id number], 183, cm, 09/23/21 16:36:00 EDT, Height Start Date: 09/29/21 Stop Date: 10/04/21 Status: Ordered bicalutamide 50 mg oral tablet (11 sources) Androgen Receptor Inhibitor Start: 05-12-2022 take 50 mg by mouth once daily Bicalutamide Active 50 MG PO DAILY May 17, 2022 11:00pm cetirizine hydrochloride 10 mg oral tablet (9 sources) Histamine-1 Receptor Antagonist Start: 06-21-2024 take 1 tablet by mouth once daily as needed Cetirizine (24hour Allergy) 10 mg tablet Active 10 mg PO DAILY as needed for allergy symptoms June 21, 2024 12:00am Start: 11-21-2023 take 1 mg by mouth once daily Zyrtec 10 mg oral tablet mg = tab(s), Oral, qDay, 0 Refill(s) Start Date: 11/21/23 Status: Ordered Start: 08-25-2023 End: 05-25-2024 take 1 capsule by mouth once daily as needed Cetirizine (Zyrtec) 10 mg capsule Discontinued 10 mg PO DAILY as needed August 25, 2023 12:00am May 25, 2024 8:49am dutasteride 0.5 mg oral capsule (4 sources) 5-alpha Reductase Inhibitor Start: 05-28-2013 take 1 capsule by mouth once daily Dutasteride (Avodart) 0.5 MG capsule Active 0.5 MG PO DAILY May 28, 2013 11:09am furosemide 40 mg oral tablet (20 sources) Loop Diuretic Start: 08-25-2023 Furosemide 40 mg tablet Active 40 mg PO MOTUWETHFR August 25, 2023 10:21am Start: 09-03-2022 End: 02-02-2023 Furosemide 40 mg tablet Disc ontinued 40 mg PO TUTH January 11, 2023 1:00am February 02, 2023 11:53am Start: 08-27-2022 End: 08-25-2023 take 1 tablet by mouth once daily Furosemide 40 mg tablet Discontinued 40 mg PO DAILY February 02, 2023 11:53am August 25, 2023 10:22am ibuprofen 200 mg oral capsule (2 sources) Nonsteroidal Anti-inflammatory Drug Start: 06-05-2020 take 1 mg by mouth every six hours ibuprofen 200 mg oral capsule mg = cap(s), Oral, q6hr, 0 Refill(s) Start Date: 06/05/20 Status: Ordered Lopressor 25mg--USE metoprolol tartrate 25 mg oral tablet (1 source) Start: 08-29-2023 Lopressor 25mg--USE metoprolol tartrate 25 mg oral tablet 0 Refill(s) Start Date: 08/29/23 Status: Ordered loratadine 10 mg oral tablet (11 sources) Start: 03-09-2022 take 1 tablet by mouth once daily Loratadine (Claritin) 10 mg tablet Active 10 MG PO DAILY May 17, 2022 11:00pm Multiple Vitamins-Minerals (multivitamin with minerals) tablet (1 source) take 1 tablet by mouth once daily Multiple Vitamins-Minerals (multivitamin with minerals) tablet Take 1 tablet by mouth daily. Active Multivitamin (Daily Multiple Vitamin) 1 EACH tablet (20 sources) Start: 06-23-2015 take 1 tablet by mouth once daily Multivitamin (Daily Multiple Vitamin) 1 EACH tablet Active 1 EACH PO DAILY June 23, 2015 2:57pm Start: 06-23-2015 End: 09-28-2021 take 1 tablet by mouth once daily Multivitamin (Daily Multiple Vitamin) 1 EACH tablet Discontinued 1 NMA PO DAILY June 23, 2015 12:00am September 28, 2021 1:20pm Start: 06-23-2015 End: 09-28-2021 take 1 tablet by mouth once daily Multivitamin (Daily Multiple Vitamin) 1 EACH tablet Discontinued 1 EACH PO DAILY June 22, 2015 11:00pm September 28, 2021 12:20pm Start: 06-23-2015 End: 09-28-2021 take 1 tablet by mouth once daily Multivitamin (Daily Multiple Vitamin) 1 EACH tablet Discontinued 1 EACH PO DAILY June 23, 2015 12:00am September 28, 2021 1:20pm Start: 06-23-2015 take 1 tablet by davey th once daily Multivitamin (Daily Multiple Vitamin) 1 EACH tablet Active 1 EACH PO DAILY June 23, 2015 12:00am Multivitamin preparation (1 source) Start: 03-11-2023 take 1 tablet by mouth once daily Multivitamin Dose = 1 tab(s), Oral, Daily, 0 Refill(s) Start Date: 03/11/23 Status: Ordered Multivitamin tablet (4 sources) Start: 08-25-2023 Multivitamin t ablet Active 1 {tbl} PO DAILY August 25, 2023 12:00am [place]-3 Fatty Acids-Fish Oil (Fish Oil 1,000 Mg Capsule) 1 EACH capsule (4 sources) Start: 06-23-2015 [place]-3 Fatty Acids-Fish Oil (Fish Oil 1,000 Mg Capsule) 1 EACH capsule Active 1 EACH PO DAILY June 23, 2015 2:57pm Start: 06-23-2015 [place]-3 Fatty Acids-Fish Oil (Fish Oil 1,000 Mg Capsule) 1 EACH capsule Active 1 EACH PO DAILY June 23, 2015 12:00am 24 hr oxybutynin chloride 10 mg extended release oral tablet (5 sources) Cholinergic Muscarinic Antagonist Start: 11-25-2023 take 1 tablet by mouth once daily Oxybutynin Chloride 10 mg tablet extended release 24hr Active 10 mg PO daily November 25, 2023 12:00am Sodium Chloride (1 source) Start: 11-21-2023 0.9% Sodium Chloride 1000 mL (Rx) 0 Refill(s) Start Date: 11/21/23 Status: Ordered zinc acetate 25 mg oral capsule (2 sources) Start: 06-05-2020 zinc (as aceta te) 25 mg oral capsule Dose : 25 mg = 1 cap(s), Oral, TID, # 250 cap(s), 0 Refill(s) Start Date: 06/05/20 Status: Ordered Completed/Discontinued Medications Medication Drug Class(es) Dates Sig (Normalized) Sig (Original) acetaminophen 325 mg / oxyCODONE hydrochloride 5 mg oral tablet (20 sources) Opioid Agonist Start: 12-18-2021 End: 05-18-2022 Oxycodone-Acetamino phen 5-325 mg tablet Discontinued 1 {tbl} PO EVERY 6 HOURS as needed for pain 14 December 18, 2021 May 18, 2022 8:31am Start: 12-18-2021 End: 05-18-2022 take 1 tablet by mouth every six hours Oxycodone-Acetaminophen Discontinued 1 TABLET PO EVERY 6 HOURS 14 December 18, 2021 May 18, 2022 8:31am Start: 06-24-2015 take 1 tablet by davey th every six hours as needed Oxycodone-Acetaminophen Active 1 TABLET PO EVERY 6 HOURS NEEDED June 24, 2015 8:31am apixaban 5 mg oral tablet (20 sources) Factor Xa Inhibitor Start: 09-24-2021 End: 11-18-2022 take 1 tablet by mouth twice daily Apixaban (Eliquis) 5 mg tablet Discontinued 5 mg PO TWICE A DAY 60 October 26, 2021 2:37pm December 18, 2021 5:51am azithromycin 250 mg oral tablet (19 sources) Macrolide Antimicrobial Start: 09-30-2021 End: 11-10-2021 Azithromycin (Zithromax Z-Colby) 250 mg tablet Discontinued 0 PO .COMPLEX September 30, 2021 12:00am November 10, 2021 9:36am For 250 mg dose pack: take 500 mg today (day 1), then 250 mg for 4 days (days 2-5) PO ciprofloxacin 500 mg oral tablet (16 sources) Quinolone Antimicrobial Start: 12-18-2021 End: 06-02-2022 take 1 tablet by mouth twice daily Ciprofloxacin Hcl (Cipro) 500 mg tablet Discontinued 500 mg PO TWICE A DAY December 18, 2021 12:00am June 02, 2022 11:17am diphenhydrAMINE hydrochloride 25 mg oral capsule (20 sources) Histamine-1 Receptor Antagonist Start: 02-24-2023 End: 07-11-2023 take 2 capsules by mouth at bedtime Diphenhydramine Hcl (Benadryl) 25 mg capsule Discontinued 50 mg PO AT BEDTIME February 24, 2023 11:19am July 11, 2023 10:26am Start: 01-24-2023 End: 02-24-2023 take 1 capsule by mouth at bedtime Diphenhydramine Hcl (Benadryl) 25 mg capsule Discontinued 25 mg PO AT BEDTIME January 24, 2023 1:00am February 24, 2023 11:19am Start: 01-11-2023 End: 07-11-2023 take 1 capsule by mouth twice daily Diphenhydramine Hcl (Banophen) 50 mg capsule Discontinued 50 mg PO TWICE A DAY January 11, 2023 1:00am July 11, 2023 10:26am docusate sodium 100 mg oral capsule (16 sources) Start: 12-18-2021 End: 05-18-2022 take 1 capsule by mouth twice daily Docusate Sodium (Colace) 100 mg capsule Discontinued 100 mg PO TWICE A DAY December 18, 2021 12:00am May 18, 2022 8:31am 24 hr doxazosin 4 mg extended release oral tablet (20 sources) alpha-Adrenergi c Hilary Start: 09-16-2021 End: 09-28-2021 take 1 tablet by mouth every twenty-four hours at breakfast Doxazosin 4 mg Tablet Extended Release 24hr Discontinued 4 mg PO AT BEDTIME September 16, 2021 12:00am September 28, 2021 1:20pm must administer with breakfast Start: 05-19-2021 End: 09-28-2021 take 4 mg by mouth at breakfast Doxazosin Discontinued 4 MG PO AT BEDTIME September 15, 2021 11:00pm September 28, 2021 12:20pm must administer with breakfast fluticasone propionate 0.05 mg/actuat metered dose nasal spray (6 sources) Corticosteroid Start: 05-19-2021 End: 06-18-2021 take 1 dose nasal route once daily in the morning Flonase 50 mcg/inh nasal spray Dose = 2 spray(s), Nostril, each, qAM, # 16 gram(s), 0 Refill(s), [facility]acy: [id number], Sinusitis, 183, cm, 05/19/21 8:33:00 EDT, Height, kg, 05/19/21 8:33:00 EDT, Dosing Weight Start Date: 05/19/21 Stop Date: 06/18/21 Status: Ordered 0.375 ml leuprolide acetate 60 mg/ml prefilled syringe (9 sources) Gonadotropin Releasing Hormone Receptor Agonist Start: 11-18-2022 End: 04-11-2023 Leuprolide (3 Month) (Ro (3 Month)) 22.5 mg syringe Discontinued 22.5 mg SC every 3 months November 18, 2022 12:00am April 11, 2023 11:02am Start: 11-01-2022 inject 7.5 mg by sub cutaneous injection every three months leuprolide 7.5 mg/month subcutaneous injection, extended release See Instructions, 7.5 mg Subcutaneous 30 day(s) q 3 months, 0 Refill(s) Start Date: 11/01/22 Status: Ordered lisinopril 5 mg oral tablet (20 sources) Angiotensin Converting Enzyme Inhibitor Start: 04-25-2023 End: 08-25-2023 take 1 tablet by mouth twice daily Lisinopril 5 mg tablet Discontinued 5 mg PO TWICE A DAY 180 April 25, 2023 11:20am August 25, 2023 10:45am Start: 09-03-2022 End: 04-25-2023 take 2 tablets by mouth once daily Lisinopril 5 mg tablet Discontinued 10 mg PO DAILY 180 September 03, 2022 1:31pm April 25, 2023 11:20am Start: 09-03-2022 End: 04-25-2023 take 10 mg by mouth once daily Lisinopril Discontinued 10 MG PO DAILY 180 September 03, 2022 1:31pm April 25, 2023 11:20am Start: 06-04-2022 End: 09-03-2022 take 1 tablet by mouth twice daily Lisinopril 5 mg tablet Discontinued 5 mg PO TWICE A DAY 180 July 29, 2022 4:01pm September 03, 2022 1:31pm Start: 05-28-2022 End: 07-29-2022 take 1 tablet by mouth once daily Lisinopril 5 mg tablet Discontinued 5 mg PO DAILY 90 June 16, 2022 3:15pm July 29, 2022 4:02pm Magnesium (13 sources) Start: 06-09-2022 End: 11-18-2022 Magnesium 200 mg tablet Disc ontinued 120 mg PO DAILY June 09, 2022 12:00am November 18, 2022 8:27am Start: 06-09-2022 End: 11-18-2022 take 120 mg by mouth once daily Magnesium Discontinued 120 MG PO DAILY June 09, 2022 12:00am November 18, 2022 8:27am Start: 06-09-2022 End: 11-18-2022 take 120 mg by mouth once daily Magnesium Discontinued 120 MG PO DAILY June 08, 2022 11:00pm November 18, 2022 7:27am Start: 06-09-2022 take 120 mg by mouth once daily Magnesium Active 120 MG PO DAILY June 09, 2022 12:00am megestrol acetate 20 mg oral tablet (8 sources) Progestin Start: 01-11-2023 End: 07-11-2023 take 1 tablet by mouth twice daily Megestrol 20 mg tablet Discontinued 20 mg PO TWICE A DAY January 11, 2023 1:00am July 11, 2023 10:26am Start: 11-01-2022 megestrol 20 m g oral tablet Dose : 20 mg = 1 tab(s), Oral, BID, take 1 tablet by mouth twice a day Start Date: 11/01/22 Status: Ordered metoprolol tartrate 25 mg oral tablet (20 sources) beta-Adrenergic Hilary Start: 08-25-2023 End: 06-25-2024 take 1 tablet by mouth twice daily Metoprolol Tartrate 25 mg tablet Discontinued 25 mg PO TWICE A DAY 180 June 13, 2024 7:02am June 25, 2024 10:43am Start: 11-26-2022 End: 11-26-2022 take 2 tablets by mouth twice daily Metoprolol Tartrate 25 mg tablet Discontinued 50 mg PO TWICE A DAY 180 November 26, 2022 9:23am November 26, 2022 12:10pm Start: 11-26-2022 End: 11-26-2022 take 50 mg by mouth twice daily Metoprolol Tartrate Di scontinued 50 MG PO TWICE A DAY 180 November 26, 2022 9:23am November 26, 2022 12:10pm Start: 11-26-2022 End: 08-25-2023 take 1 tablet by mouth twice daily Metoprolol Tartrate 50 mg tablet Discontinued 50 mg PO TWICE A DAY 180 December 14, 2022 9:38am August 25, 2023 10:46am Start: 04-12-2022 End: 11-26-2022 take 1 tablet by mouth twice daily Metoprolol Tartrate 25 mg tablet Discontinued 25 mg PO TWICE A DAY 180 April 12, 2022 4:20pm November 26, 2022 9:23am Start: 10-27-2021 End: 04-12-2022 Metoprolol Tartrate 50 mg ta blet Discontinued 25 mg PO TWICE A DAY December 18, 2021 5:51am April 12, 2022 4:21pm Start: 10-27-2021 End: 04-12-2022 take 25 mg by mouth twice daily Metoprolol Tartrate Di scontinued 25 MG PO TWICE A DAY December 18, 2021 4:51am April 12, 2022 3:21pm Start: 10-19-2021 End: 10-27-2021 take 1 tablet by mouth twice daily Metoprolol Tartrate 50 mg tablet Discontinued 50 mg PO TWICE A DAY 180 October 19, 2021 9:15am October 27, 2021 5:29pm Start: 09-23-2021 End: 10-19-2021 take 1 tablet by mouth twice daily Metoprolol Tartrate 25 mg tablet Discontinued 25 mg PO TWICE A DAY September 24, 2021 12:00am October 19, 2021 9:15am Multivitamin (Daily Multiple ) tablet (19 sources) Start: 09-28-2021 End: 11-10-2021 Multivitamin (Daily Multiple ) tablet Discontinued 1 {tbl} PO DAILY as needed September 28, 2021 1:20pm November 10, 2021 9:36am Start: 09-28-2021 End: 11-10-2021 take 1 tablet by mouth once daily Multivitamin (Daily Multiple) tablet Discontinued 1 TABLET PO DAILY September 28, 2021 12:20pm November 10, 2021 8:36am Start: 09-28-2021 End: 11-10-2021 take 1 tablet by mouth once daily Multivitamin (Daily Multiple) tablet Discontinued 1 TABLET PO DAILY September 28, 2021 1:20pm November 10, 2021 9:36am Start: 09-28-2021 take 1 tablet by davey th once daily Multivitamin (Daily Multiple) tablet Active 1 TABLET PO DAILY September 28, 2021 1:20pm Problems Active Problems Problem Classification Problem Date Documented Da te Episodic/Chronic Administrative/social admission (14 sources) Patient encounter status; Translations: [Counseling, unspecified] 08-26-2022 Episodic Cancer of prostate (20 sources) Malignant tumor of prostate; Translations: [Malignant neoplasm of prostate] Onset: 07-10-2024 12-18-2021 Chronic Cardiac dysrhythmias (20 sources) Ventricular premature beats; Translations: [Ventricular premature depolarization] Onset: 11-29-2023 Chronic Chronic kidney disease (1 source) Chronic kidney disease stage 2 02-07-2023 Chronic Chronic obstructive pulmonary disease and bronchiectasis (1 source) Bronchitis 08-29-2023 Episodic Complications of surgical procedures or medical care (2 sources) Injection site disorder 11-01-2022 Episodic Conditions associated with dizziness or vertigo (4 sources) Dizziness; Translations: [Dizziness and giddiness] Onset: 06-28-2024 06-21-2024 Episodic Essential hypertension (20 sources) Essential hypertension; Translations: [Essential (primary) hypertension] Chronic Comment on above: RECENT INCREASE IN M ETOPROLOL Headache; including migraine (8 sources) Migraine; Translations: [Migraine, unspecified, not intractable, without status migrainosus] 03-11-2023 Chronic Heart valve disorders (15 sources) Mitral valve regurgitation; Translations: [Non-rheumatic mitral regurgitation ] 11-01-2022 Chronic Malaise and fatigue (11 sources) Fatigue; Translations: [Other fatigue] 08-27-2022 Episodic Other aftercare (15 sources) Long-term current use of 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; 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] 08-27-2022 Episodic Other aftercare (3 sources) Drug therapy finding; Translations: [Other care home (current) drug therapy] 08-01-2024 Episodic Other aftercare (2 sources) Other manager intermediate (current) drug therapy; Translations: [Other care home (current) drug therapy] Onset: 08-01-2024 Episodic Other and unspecified benign neoplasm (5 sources) Polyp of colon 05-12-2022 Episodic Other and unspecified benign neoplasm (13 sources) Lipoma of skin and subcutaneous tissue of face; Translations: [Benign lipomatous neoplasm of skin and subcutaneous tissue of head, face and neck] 07-07-2022 Episodic Other and unspecified benign neoplasm (2 sources) Benign lipomatous neoplasm of skin and subcutaneous tissue of head, face and neck; Translations: [Lipoma of skin and subcutaneous tissue of face] 01-18-2023 Episodic Other circulatory disease (3 sources) H/O: atrial fibrillation; Translations: [Personal history of other diseases of the circulatory system] 06-21-2024 Episodic Other connective tissue disease (1 source) Musculoskeletal symptom; Translations: [Other symptoms and signs involving the musculoskeletal system] Episodic Other connective tissue disease (4 sources) Swelling of lower limb; Translations: [Other specified soft tissue disorders] 10-05-2023 Episodic Other gastrointestinal disorders (7 sources) Prostate mass 08-19-2021 Episodic Other gastrointestinal disorders (2 sources) Diarrhea, unspecified; Translations: [Diarrhea, unspecified] Onset: 06-13-2024 Episodic Other lower respiratory disease (5 sources) Postviral cough 02-03-2022 Episodic Other lower respiratory disease (5 sources) Tussive syncope 10-08-2021 Episodic Other lower respiratory disease (13 sources) Dyspnea on exertion; Translations: [Other forms of dyspnea] 08-27-2022 Episodic Other lower respiratory disease (2 sources) Dyspnea 11-01-2022 Episodic Other lower respiratory disease (1 source) Cough 08-29-2023 Episodic Other non-traumatic joint disorders (4 sources) Hip pain 09-22-2022 Episodic Other non-traumatic joint disorders (1 source) Pain of left hip joint; Translations: [Pain in left hip] Episodic Other nutritional; endocrine; and metabolic disorders (5 sources) Body mass index 30+ - obesity 02-03-2022 Chronic Other nutritional; endocrine; and metabolic disorders (5 sources) Obesity 02-03-2022 Chronic Other skin disorders (7 sources) Lump on face; Translations: [Localized swelling, mass and lump, head] 01-18-2023 Episodic Other skin disorders (2 sources) Localized swelling, mass and lump, head; Translations: [Swelling, mass, or lump in head and neck] 01-18-2023 Episodic Residual codes; unclassified (8 sources) Hypersomnia; Translations: [Hypersomnia, unspecified] 11-18-2022 Chronic Residual codes; unclassified (1 source) Hypersomnia, unspecified; Translations: [Hypersomnia, unspecified] 11-18-2022 Chronic Residual codes; unclassified (8 sources) Obstructive sleep apnea syndrome; Translations: [Obstructive sleep apnea (adult) (pediatric)] 10-05-2023 Chronic Residual codes; unclassified (1 source) Obstructive sleep apnea (adult) (pediatric); Translations: [Obstructive sleep apnea (adult) (pediatric)] Onset: 11-08-2023 Chronic Residual codes; unclassified (1 source) Hormone sensitive malignancy status; Translations: [Hormone sensitive malignancy status] Onset: 07-10-2024 Episodic Screening and history of mental health and substance abuse codes (5 sources) Tobacco use and exposure - finding 02-03-2022 Chronic Unclassified (20 sources) Patient encounter status 06-05-2020 Unclassified (5 sources) Drug therapy finding 02-03-2022 Unclassified (1 source) Hypercoagulable state due to atrial fibrillation 08-29-2023 Past or Other Problems Problem Classification Problem Date Documented Date Episodic/Chronic Cardiac dysrhythmias (4 sources) Bradycardia; Translations: [Bradycardia, unspecified] Onset: 06-25-2024 06-21-2024 Episodic Other lower respiratory disease (1 source) Other forms of dyspnea; Translations: [Other forms of dyspnea] Onset: 06-25-2024 Episodic Other screening for suspected conditions (not mental disorders or infectious disease) (2 sources) Cardiac disease monitoring status; Translations: [Encounter for screening for cardiovascular disorders] Onset: 01-09-2024 Episodic Residual codes; unclassified (19 sources) History of cardiac catheterization; Translations: [Other specified postprocedural states] Onset: 04-07-2001 09-29-2021 Episodic Comment on above: Normal coronaries pe r cardiac cath Dr. Lopez [facility] 04/12/01 Results Test Name Value Interpretation Reference Range Facility Liver Profileon 09-21-2024 Albumin [Mass/Vol] 4.5 g/dL Normal 3.4-4.8 [facility] Comment on above: Performed By: #### L [id number], L500.3400 #### [facility] [address] [place], [address] ALK PHOS 94 U/L Normal 40-129 [facility] Comment on above: Performed By: #### L [id number], L500.3400 #### [facility] [address] [place], [address] ALT [Catalytic activity/Vol] 29 U/L Normal <=46 [facility] Comment on above: Performed By: #### L [id number], L500.3400 #### [facility] [address] [place], [address] AST [Catalytic activity/Vol] 27 U/L Normal <=37 [facility] Comment on above: Performed By: #### L [id number], L500.3400 #### [facility] [address] [place], [address] Bilirubin [Mass/Vol] 0.42 mg/dL Normal 0.00-1.30 [facility] Comment on above: Performed By: #### L [id number], [id number] #### [facility] [address] [place], [address] Bilirubin.direct [Mass/Vol] 0.16 mg/dL Normal 0.00-0.30 [facility] Comment on above: Performed By: #### L [id number], L500.3400 #### [facility] [address] [place], [address] Globulin (S) [Mass/Vol] 2.9 g/dL Normal 2.2-4.2 [facility] Comment on above: Performed By: #### L [id number], [id number] #### [facility] [address] [place], [address] T PROT 7.4 g/dL Normal 5.9-8.4 [facility] Comment on above: Performed By: #### L [id number], L500.3400 #### [facility] [address] [place], [address] Thyroid Stim Hormone (TSH)on 09-21-2024 TSH 1.400 uIU/mL Normal 0.300-4.200 [facility] Comment on above: Performed By: #### L [id number], L500.3400 #### [facility] [address] [place], [place], [address] Cardiology Visit Reporton Cardiology Visit Report [facility] [address] [place], [place] [address] OFFICE VISIT Date of Service: 08/01/24 MR#: [id number] Acct: [id number] Name: RAMIRO LALA Rep #: [id number] : 1950 Provider: JAZMÍN Sepulveda Age/Sex: 74/M [place] [facility] Status: Signed HPI HPI History of Present Illness Details: Ramiro Lala is a 74-year-old male who presents today for office follow-up for monitoring his cardiovascular health. Patient has a history of atrial fibrillation and hypertension. Patient was seen 05/25/2024 and at that time patient was instructed to decrease his amlodipine to 5 mg a day and continue his metoprolol. Patient underwent a 48-hour Holter monitor that demonstrated 48% atrial fibrillation and on 06/14/24 was instructed to initiate amiodarone 200 mg twice a day for 1 week and then decrease to 200 mg daily. Patient presented to the emergency department 06/21/24 with concerns of lightheadedness and bradycardia. This was day 4 of initiating amiodarone. Patient was instructed to decrease his amiodarone dose to daily, discontinue metoprolol and follow-up with cardiology. Upon follow-up here in office 07/10/2024, patient was instructed to complete a full 7 days of dose of amiodarone 200 mg and then decrease to 100 mg daily. EKG in office today demonstrates sinus bradycardia at 56 bpm. Upon presentation to office today, patient reports feeling much improved since last visit. He continues to experience dizziness occasionally about 2 times per week. reports this seems to have improved from prior and is less frequent. He describes this as lightheadedness and feels this is associated with exertion as it is most noticed when he is doing yard work. He reports that shortness of breath is slightly better. His shortness of breath is most noticed with getting dressed in the morning, showering and walking. However, patient was able to walk 4 miles last week and 1 sitting without concerns. Headaches are much improved. Further ROS below. Intake Vital Signs 07/10/24 13:01 07/10/24 14:13 08/01/24 06:36 Height 5 ft 11 in 5 ft 11 in 5 ft 11 in Weight: 272 lb 2 oz 264 lb BMI 37.9 36.8 BP 134/77 H 143/74 H Blood Pressure Location Lt brachial Lt brachial Position Sitting Sitting Respiration 18 18 Pulse 79 61 Pulse Source Monitor Monitor Temp 97.4 F L Temperature Source Temporal Artery Pulse Oximetry (%) 93 93 Oxygen Delivery Method room air Intake Visit Reasons: 1 M FU/Needs EKG Creative Project Manager Required: No Is patient in pain?: No Allergies No Known Allergies Allergy (Verified 08/01/24 07:53) Medications ???Medication ???Instructions ???Recorded ???Confirmed ???Type apixaban 5 mg tablet (Eliquis) 5 mg PO BID blood thinner #60 tabs 11/18/22 08/01/24 Rx furosemide 40 mg tablet 40 mg PO MOTUWETHFR 08/25/2308/01 History multivitamin 1 tab PO DAILY 08/25/23 08/01/24 H istory oxybutynin chloride 10 mg 10 mg PO QDAY 11/25/23 08/01/24 Hi story tablet,extended release 24 hr cetirizine 10 mg tablet (24Hour 10 mg PO DAILY PRN allergy symptom s 06/21/24 08/01/24 History Allergy) amlodipine 10 mg tablet 10 mg PO DAILY #90 tabs 07/10/24 0 08/01/24 Rx amiodarone 200 mg tablet 200 mg PO QDAY 08/01/24 08/01/24 H istory Ejection fraction %: 65 Have you fallen in the past year?: No PFSH Medical History Wears hearing aid Wears glasses Syncope Shortness of breath on exertion Leg cramps Nonrheumatic mitral (valve) insufficiency Encounter for education Atrial fibrillation Gross hematuria Nocturia Benign prostatic hyperplasia with lower urinary tract symptoms Elevated PSA Adenocarcinoma History of Holter monitoring History of echocardiogram History of left heart catheterization (LHC) ( 04/12/01) Essential hypertension New onset atrial fibrillation Cancer Prostate disease Migraine headache Non-smoker Chronic cough History of stress test Cardiology follow-up encounter Surgical History Hx of radical prostatectomy S/P vasectomy History of robot-assisted laparoscopic radical prostatectomy Hx of cataract surgery Hx of colonoscopy Hx of umbilical hernia repair History of cystoscopy History of tonsillectomy and adenoidectomy Hx of vasectomy Hx of hand surgery Family History Mother Hypertension Cancer Father Hypertension Social History Smoking Status: Never smoker alcohol intake: current alcohol intake frequency: holidays/special occasions only substance use type: does not use caffeine: Yes Type: coffee Number of servings: 2 ROS Co (more content not included)... Normal [facility] 12 Lead E[place] [facility] [place] 07-10-2024 12 Lead EKG performed by [facility] [address] [place] [address] 12 Lead EKG performed [place] [facility] 07/10/24 1127 MR#: [id number] Acct: [id number] Name: RAMIRO LALA Rep #: [id number] : 1950 74 From: Keshawn NOYOLA Attending Dr: JAZMÍN Sepulveda Status: DEP AM B Ordering Dr: Keshawn Saeed Date: 07/10/24 Location: [facility] Sex: M C Ad[place] [facility] Lead EKG performed [place] [facility] ECG Report Interpretation -------Atrial flutter-fibrillatio n - occasional ectopic ventricular beat -RSR(V1) -nondiagnostic. -Nonspecific ST depression + Nonspecific T-abnormality -Nondiagnostic. ABNORMAL Electronically signed on 07/17/2024 at 08:09 by [employer] Version [id number] 07/17/24 0811 Date Keshawn NOYOLA CC: DAVID Trujillo Date Dictated: 07/10/24 112 Date Transcribed: 07/10/241126 Course Developer: RUBIO Signed Normal [facility] Cardiology Visit Reporton Cardiology Visit Report [facility] [address] [place] [address] OFFICE VISIT Date of Service: 07/10/24 MR#: [id number] Acct: [id number] Name: RAMIRO LALA Rep #: [id number] : 1950 Provider: JAZMÍN Sepulveda Age/Sex: 74/M Location: [facility] Status: Signed HPI HPI History of Present Illness Details: Ramiro Lala is a 74-year-old male who presents today for acute concerns of fatigue, weakness, headaches and shortness of breath. Patient has a history of atrial fibrillation and hypertension. Patient was last seen 05/25/2024 and at that time patient was instructed to decrease his amlodipine to 5 mg a day and continue his metoprolol. Patient underwent a 48-hour Holter monitor that demonstrated 48% atrial fibrillation and on 06/14/24 was instructed to initiate amiodarone 200 mg twice a day for 1 week and then decrease to 200 mg daily. Patient presented to the emergency department 06/21/24 with concerns of lightheadedness and bradycardia. This was day 4 of initiating amiodarone. Patient was instructed to decrease his amiodarone dose to daily, discontinue metoprolol and follow-up with cardiology. Upon presentation to office today, patient reports experiencing a headache about every 2 days and has been taking Tylenol twice daily. Patient notes he experienced headaches roughly once per week prior to initiation of amiodarone and they have increased since initiation. At last office appointment, patient was instructed to decrease his amlodipine with concerns of fatigue; however, he did not notice a difference. And then when he was in the emergency department, he was instructed to discontinue his metoprolol which has provided some relief in his fatigue. However, patient notes elevated BP since these medication changes. He reports noticing weakness that is described as it takes an effort to do things that he used to be able to do simply and this has been ongoing for about 6 months now. Patient reports shortness of breath but feels this is directly associated as to when he is in atrial fibrillation. Occasionally, he notices shortness of breath with taking a shower and getting dressed. Further ROS below. Intake Vital Signs 06/21/24 09:26 07/10/24 12:58 07/10/24 13:01 Height 5 ft 11 in 5 ft 11 in 5 ft 11 in Weight: 272 lb 272 lb 2 oz BMI 37.9 37.9 BP 176/72 H 134/77 H Blood Pressure Location Lt brachial Lt brachial Position Sitting Sitting Respiration 18 18 Pulse 85 79 Pulse Source Monitor Monitor Temp 97.4 F L Temperature Source Temporal Artery Pulse Oximetry (%) 92 93 Oxygen Delivery Method room air Intake Visit Reasons: Medication Changes/See Note Creative Project Manager Required: No Is patient in pain?: No Allergies No Known Allergies Allergy (Verified 07/10/24 14:10) Medications ???Medication ???Instructions ???Recorded ???Confirmed ???Type apixaban 5 mg tablet (Eliquis) 5 mg PO BID blood thinner #60 tabs 11/18/22 07/10/24 Rx furosemide 40 mg tablet 40 mg PO MOTUWETHFR 08/25/2307/10 History multivitamin 1 tab PO DAILY 08/25/23 07/10/24 H istory oxybutynin chloride 10 mg 10 mg PO QDAY 11/25/23 07/10/24 Hi story tablet,extended release 24 hr cetirizine 10 mg tablet (24Hour 10 mg PO DAILY PRN allergy symptom s 06/21/24 07/10/24 History Allergy) amiodarone 200 mg tablet 200 mg PO .COMPLEX 07/10/24 History amlodipine 10 mg tablet 10 mg PO DAILY #90 tabs 07/10/24 0 07/10/24 Rx Have you fallen in the past year?: No PFSH Medical History Wears hearing aid Wears glasses Syncope Shortness of breath on exertion Leg cramps Nonrheumatic mitral (valve) insufficiency Encounter for education Atrial fibrillation Gross hematuria Nocturia Benign prostatic hyperplasia with lower urinary tract symptoms Elevated PSA Adenocarcinoma History of Holter monitoring History of echocardiogram History of left heart catheterization (LHC) ( 04/12/01) Essential hypertension New onset atrial fibrillation Cancer Prostate disease Migraine headache Non-smoker Chronic cough History of stress test Cardiology follow-up encounter Surgical History Hx of radical prostatectomy S/P vasectomy History of robot-assisted laparoscopic radical prostatectomy Hx of cataract surgery Hx of colonoscopy Hx of umbilical hernia repair History of cystoscopy History of tonsillectomy and adenoidectomy Hx of vasectomy Hx of hand surgery Family History Mother Hypertension Cancer Father Hypertension Social History Smoking Status: Never smoker alcohol intake: current a (more content not included)... Normal [facility] Radiation Oncology Visiton 0 07-10-2024 Radiation Oncology Visit [facility] [place] [address] OFFICE VISIT Date of Service: 07/10/24 1405 MR#: [id number] Acct: [id number] Name: RAMIRO LALA Rep #: [id number] : 1950 From: Yoav Olivares DO Age/Sex: 74/M Location: [facility] [place] Status: Signed Intake Vital Signs 01/09/24 09:30 06/21/24 09:26 07/10/24 13:01 07/10/24 14:13 Height 6 ft 5 ft 11 in 5 ft 11 in 5 ft 11 in Weight: 272 lb 2 oz BMI 37.9 BP 134/77 H Blood Pressure Location Lt brachial Position Sitting Respiration 18 Pulse 79 Pulse Source Monitor Temp 97.4 F L Temperature Source Temporal Artery Pulse Oximetry (%) 93 Oxygen Delivery Method room air Intake Visit Reasons: 6 MONTH PROSTATE Is patient in pain?: No Allergies No Known Allergies Allergy (Verified 07/10/24 14:10) Medications ???Medication ???Instructions ???Recorded ???Confirmed ???Type apixaban 5 mg tablet (Eliquis) 5 mg PO BID blood thinner #60 tabs 11/18/22 07/10/24 Rx furosemide 40 mg tablet 40 mg PO MOTUWETHFR 08/25/2307/10 History multivitamin 1 tab PO DAILY 08/25/23 07/10/24 H istory oxybutynin chloride 10 mg 10 mg PO QDAY 11/25/23 07/10/24 Hi story tablet,extended release 24 hr cetirizine 10 mg tablet (24Hour 10 mg PO DAILY PRN allergy symptom s 06/21/24 07/10/24 History Allergy) amiodarone 200 mg tablet 200 mg PO .COMPLEX 07/10/24 History amlodipine 10 mg tablet 10 mg PO DAILY #90 tabs 07/10/24 0 07/10/24 Rx Have you fallen in the past year?: No PFSH PFSH Medical History Wears hearing aid Wears glasses Syncope Shortness of breath on exertion Leg cramps Nonrheumatic mitral (valve) insufficiency Encounter for education Atrial fibrillation Gross hematuria Nocturia Benign prostatic hyperplasia with lower urinary tract symptoms Elevated PSA Adenocarcinoma History of Holter monitoring History of echocardiogram History of left heart catheterization (LHC) ( 04/12/01) Essential hypertension New onset atrial fibrillation Cancer Prostate disease Migraine headache Non-smoker Chronic cough History of stress test Cardiology follow-up encounter Home Medications ???Medication ???Instructions ???Recorded ???Last Taken ???Type apixaban 5 mg tablet (Eliquis) 5 mg PO BID blood thinner #60 tabs 11/18/22 06/21/24 Rx furosemide 40 mg tablet 40 mg PO MOTUWETHFR 08/25/2306/21 History multivitamin 1 tab PO DAILY 08/25/23 Unknown Hi story oxybutynin chloride 10 mg 10 mg PO QDAY 11/25/23 06/21/24 Hi story tablet,extended release 24 hr cetirizine 10 mg tablet (24Hour 10 mg PO DAILY PRN allergy symptom s 06/21/24 Unknown History Allergy) amiodarone 200 mg tablet 200 mg PO .COMPLEX 07/10/24 Unknow n History amlodipine 10 mg tablet 10 mg PO DAILY #90 tabs 07/10/24 U nknown Rx Allergy/AdvReac Type Severity Reaction Status Date / Time No Known Allergies Allergy Verified 07/10/24 14:10 Family History Mother Hypertension Cancer Father Hypertension Surgical History Hx of radical prostatectomy S/P vasectomy History of robot-assisted laparoscopic radical prostatectomy Hx of cataract surgery Hx of colonoscopy Hx of umbilical hernia repair History of cystoscopy History of tonsillectomy and adenoidectomy Hx of vasectomy Hx of hand surgery Social History Smoking Status: Never smoker alcohol intake: current alcohol intake frequency: holidays/special occasions only substance use type: does not use caffeine: Yes Type: coffee Number of servings: 2 Diagnosis: Ramiro Lala is a 74-year-old male diagnosed with 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 Following surgery patient had a persistently elevated PSA at 0.49 (03/24/2022), PSMA PET scan was completed 04/20/2022. From 05/31/2022 - 07/15/2022 he completed salvage radiation therapy with ADT. History of Present Illness: 01/07/2021: TRUS guided prostate biopsy was performed.??? This demonstrated no evidence of malignancy in any of the biopsy cores. 08/05/2021: MRI pelvis with and without contrast was performed.??? This demonstrated a low T2 signal mass along the left peripheral zone with extension into the transition zone measuring 21 x 24 mm, this is a lobulated appearance (more content not included)... Normal [facility] PSA,Total- Diagnosticon 05-0 PSA, DIAGNOSTIC < 0.02 Normal 0.00-4.00 [facility] Comment on above: Result Comment: This test was performed using the Cureeo tPSA method. Measured values of a patient??sample can vary depending on the testing procedure used. PSA values determined on patient samples by different testing procedures cannot be used interchangeably. If there is a change in PSA assays while monitoring therapy, sequential testing should be performed to confirm baseline values. Performed By: #### L 501.9940 #### [facility] [address] [place], [address] 12 Lead E[place] [facility] [place] 12 Lead EKG performed by [facility] [address] [place] [address] 12 Lead EKG performed [place] [facility] 06/25/24 1028 MR#: [id number] Acct: [id number] Name: RAMIRO LALA Rep #: [id number] : 1950 74 From: Marsha Cox Attending Dr: JAZMÍN Mosley Status: DEP AMB Ordering Dr: Marsha Templeton Date: 06/06 03/31 Location: [facility] Sex: M C Admitted: [facility] Lead E[place] performed by [facility] ECG Report Interpretation -------Sinus Bradycardia -First degree A-V block Jessica = 234-RSR(V1) -nondiagnostic. -Left atrial enlargement. - Nonspecific T-abnormality. ABNORMAL Electronically signed on 06/27/2024 at 16:24 by Momo [employer] Version [id number] 06/27/24 1630 Date Marsha NOYOLA CC: FARIBA-Gelacio Trujillo Date Dictated: 06/25/24 1028 Date Transcribed: 06/25/241027 Course Developer: TELMA Signed Normal [facility] 12 Lead EKGon 06-21-2024 12 Lead EKG [facility] [address] [place] [address] 12 Lead EKG 06/21/24 0930 MR#: [id number] Acct: [id number] Name: RAMIRO LALA Rep #: [id number] : 1950 74 From: Nader Do MD Attending Dr: Status: DEP ER Ordering Dr: Carly Adams DO Date: 06/21/24 Location: ED Sex: M C Admitted: Test Reason : Blood Pressure : */* mmHG Vent. Rate : 59 BPM Atrial Rate : 59 BPM P-R Int : 238 ms QRS Dur : 102 ms QT Int : 474 ms P-R-T Axes : 63 32 34 degrees QTcB Int : 469 ms Sinus bradycardia with 1st degree A-V block Incomplete right bundle branch block Borderline ECG Confirmed by Nader Do ([id number]), film or videotape editor YVES NELSON ([id number]) on 06/22/2024 12:46:00 PM Referred By: Confirmed By: Nader Do 06/22/24 1246 Date Nader Do MD CC: DAVID Trujillo; Dr. Carly Adams DO Signed Normal [facility] Absolute lymphocyte countOrd ered By: Carly Adams on 04-17-2025 Lymphocytes Auto (Unsp spec) [#/Vol] 1.74 10*3/uL 0.83-4.51 [facility] Absolute neutrophil countOrd ered By: Carly Adams on 06-21-2024 Neutrophils (Bld) [#/Vol] 3.4 10*3/uL 2.0-7.7 [facility] Anion gap in Serum or Plasma Ordered By: Carly Adams on 06-21-2024 Anion gap [Moles/Vol] 12 mmol/L 5- [facility] Automated lymphocyte count a s percentage of total leukocytesOrdered By: Carly Adams on 06-21-2024 Lymphocytes/100 WBC Auto (Unsp spec) 27.9 % - [facility] BUN/creatinine ratioOrdered By: Carly Adams on 06-21-2024 Urea nitrogen/Creatinine [Mass ratio] 16.2 mg/mg - [facility] Basic Metabolic Profile (BMP )on 06-21-2024 BUN/CRE 16.2 RATIO Normal - [facility] Comment on above: Performed By: #### L 501.9940 #### [facility] [address] [place], [address] Calcium [Mass/Vol] 9.2 mg/dL Normal 7.6-11.0 [facility] Comment on above: Performed By: #### L 501.9940 #### [facility] [address] [place], [address] Chloride [Moles/Vol] 101 mmol/L Normal 98-108 [facility] Comment on above: Performed By: #### L [id number] #### [facility] [address] [place], [address] CO2 [Moles/Vol] 22.7 mmol/L Normal 21.0-32.0 [facility] Comment on above: Performed By: #### L [id number] #### [facility] [address] [place], [address] Creatinine [Mass/Vol] 0.98 mg/dL Normal 0.70-1.20 [facility] Comment on above: Performed By: #### L [id number] #### [facility] [address] [place], [address] ECRCL 87.64 ml/min Normal 50-250 [facility] Comment on above: Performed By: #### L [id number] #### [facility] [address] [place], [address] GAP 12 Normal 5-15 [facility] Comment on above: Performed By: #### L [id number] #### [facility] [address] [place], [address] GFR/1.73 sq M.predicted among non-blacks MDRD (S/P/Bld) [Vol rate/Area] 81 mL/min/{1.73_m2} Normal >60 [facility] Comment on above: Result Comment: mL/m in/1.73m2 CKD-EPI Creatinine Equation (2020) Performed By: #### L 501.9940 #### [facility] [address] [place], [address] Glucose [Mass/Vol] 95 mg/dL Normal 70-99 [facility] Comment on above: Performed By: #### L [id number] #### [facility] [address] [place], [address] Potassium [Moles/Vol] 4.2 mmol/L Normal 3.3-5.1 [facility] Comment on above: Performed By: #### L [id number] #### [facility] [address] [place], [address] Sodium [Moles/Vol] 136 mmol/L Normal 133-145 [facility] Comment on above: Performed By: #### L [id number] #### [facility] [address] [place], [address] Urea nitrogen [Mass/Vol] 16 mg/dL Normal 4-19 [facility] Comment on above: Performed By: #### L [id number] #### [facility] [address] [place], [address] Basophil percentageOrdered B y: Carly Ungismael on 06-21-2024 Basophils/100 WBC (Bld) 1.0 % 0-1 [facility] CBC W/Diff, Automatedon 06-05 Absolute Lymph 1.74 X10 3/uL Normal 0.83-4.51 [facility] Comment on above: Performed By: #### L [id number] #### [facility] [address] [place], [address] Absolute Neut 3.4 X10 3/uL Normal 2.0-7.7 [facility] Comment on above: Performed By: #### L [id number] #### [facility] [address] [place], [address] Basophils/100 WBC (Bld) 1.0 % Normal 0-1 [facility] Comment on above: Performed By: #### L [id number] #### [facility] [address] [place], [address] Eosinophils/100 WBC (Bld) 3.2 % Normal 0-5 [facility] Comment on above: Performed By: #### L [id number] #### [facility] [address] [place], [address] Erythrocyte distribution width (RBC) [Ratio] 13.7 % Normal 11.6-14.6 [facility] Comment on above: Performed By: #### L [id number] #### [facility] [address] [place], [address] Hematocrit (Bld) [Volume fraction] 43.7 % Normal 40-54 [facility] Comment on above: Performed By: #### L [id number] #### [facility] [address] [place], [address] Hemoglobin (Bld) [Mass/Vol] 14.6 g/dL Normal 13.0-16.5 [facility] Comment on above: Performed By: #### L [id number] #### [facility] [address] [place], [address] IG% 0.500 Normal 0.0-0.9 [facility] Comment on above: Result Comment: IG% - Immature Granulocytes (promyelocytes, myelocytes and metamyelocytes) > 1% indicates that a LEFT SHIFT is Present. Performed By: #### L [id number] #### [facility] [address] [place], [address] Lymphocytes/100 WBC (Bld) 27.9 % Normal 19-41 [facility] Comment on above: Performed By: #### L [id number] #### [facility] [address] [place], [address] MCH (RBC) [Entitic mass] 28.3 pg Normal 27.0-32.0 [facility] Comment on above: Performed By: #### L [id number] #### [facility] [address] [place], [address] MCHC (RBC) [Mass/Vol] 33.4 g/dL Normal 32-36 [facility] Comment on above: Performed By: #### L [id number] #### [facility] [address] [place], [address] MCV (RBC) [Entitic vol] 84.7 fL Normal 80-94 [facility] Comment on above: Performed By: #### L [id number] #### [facility] [address] [place], [address] Monocytes/100 WBC (Bld) 12.7 % High 0-10 [facility] Comment on above: Performed By: #### L [id number] #### [facility] [address] [place], [address] Neutrophils/100 WBC (Bld) 54.7 % Normal 47-70 [facility] Comment on above: Performed By: #### L [id number] #### [facility] [address] [place], [address] Nucleated RBC (Bld) [#/Vol] 0 10*3/uL Normal 0-5 [facility] Comment on above: Performed By: #### L [id number] #### [facility] [address] [place], [address] Platelet mean volume (Bld) [Entitic vol] 12.1 fL High 6.2-12.0 [facility] Comment on above: Performed By: #### L [id number] #### [facility] [address] [place], [address] Platelets (Bld) [#/Vol] 165 10*3/uL Normal 150-450 [facility] Comment on above: Performed By: #### L [id number] #### [facility] [address] [place], [address] RBC (Bld) [#/Vol] 5.16 10*6/uL Normal 4.6-6.2 [facility] Comment on above: Performed By: #### L [id number] #### [facility] [address] [place], [address] RDW SD 42.5 fl Normal 35.1-43.9 [facility] Comment on above: Performed By: #### L [id number] #### [facility] [address] [place], [address] WBC (Bld) [#/Vol] 6.2 10*3/uL Normal 4.4-11.0 [facility] Comment on above: Performed By: #### L [id number] #### [facility] [address] [place], [address] Carbon dioxide, total [Moles /volume] in Central venous bloodOrdered By: Carly Adams on 06-21-2024 CO2 [Moles/Vol] 22.7 mmol/L 21.0-32.0 [facility] Chloride assayOrdered By: Ilene Adams on 06-21-2024 Chloride [Moles/Vol] 101 mmol/L 98-108 [facility] Department Summary on 06-21-2024 Emergency Department Summary [facility] Department [address] [place] [address] Emergency Department Summary 06/21/24 MR#: [id number] Acct: [id number] Name: RAMIRO LALA Rep #: [id number] : 1950 74 From: Carly Adams DO PCP: DAVID Bey Status:DEP ER Location: ED HPI History of Present Illness Chief Complaint: Palpitations Detail of Chief Complaint: Lightheadedness and bradycardia Informant: patient and spouse/S.O. Narrative Narrative: Patient presents to the emergency department with complaint of feeling lightheaded that started around 8 AM. Patient also states that his heart rate has been in the 40s this morning. He has had this happen before but usually resolves after about 15 minutes. He denies chest pain. Patient has history of A-fib and states that he was started on a new medication 4 days ago. He was started on amiodarone. He continues to take his apixaban and metoprolol. Patient denies recent illness. Denies syncope. [facility] Medical History Wears hearing aid Wears glasses Syncope Shortness of breath on exertion Leg cramps Nonrheumatic mitral (valve) insufficiency Encounter for education Atrial fibrillation Gross hematuria Nocturia Benign prostatic hyperplasia with lower urinary tract symptoms Elevated PSA Adenocarcinoma History of Holter monitoring History of echocardiogram History of left heart catheterization (LHC) ( 04/12/01) Essential hypertension New onset atrial fibrillation Cancer Prostate disease Migraine headache Non-smoker Chronic cough History of stress test Cardiology follow-up encounter Home Medications ???Medication ???Instructions ???Recorded ???Last Taken ???Type apixaban 5 mg tablet (Eliquis) 5 mg PO BID blood thinner #60 tabs 11/18/22 06/21/24 Rx furosemide 40 mg tablet 40 mg PO MOTUWETHFR 08/25/2306/21 History multivitamin 1 tab PO DAILY 08/25/23 Unknown Hi story oxybutynin chloride 10 mg 10 mg PO QDAY 11/25/23 06/21/24 Hi story tablet,extended release 24 hr amlodipine 5 mg tablet 5 mg PO DAILY #90 tabs 05/25/24 Rx metoprolol tartrate 25 mg tablet 25 mg PO BID #180 tabs 06/13/24 Rx amiodarone 200 mg tablet 200 mg PO BID 06/21/24 06/21/24 Hi story cetirizine 10 mg tablet (24Hour 10 mg PO DAILY PRN allergy symptom s 06/21/24 Unknown History Allergy) Allergy/AdvReac Type Severity Reaction Status Date / Time No Known Allergies Allergy Verified 06/21/24 09:26 Family History Mother Hypertension Cancer Father Hypertension Surgical History Hx of radical prostatectomy S/P vasectomy History of robot-assisted laparoscopic radical prostatectomy Hx of cataract surgery Hx of colonoscopy Hx of umbilical hernia repair History of cystoscopy History of tonsillectomy and adenoidectomy Hx of vasectomy Hx of hand surgery Social History Smoking Status: Never smoker alcohol intake: current alcohol intake frequency: holidays/special occasions only substance use type: does not use caffeine: Yes Type: coffee Number of servings: 2 ROS ROS ED Review of Systems ROS Unobtainable: other Constitutional Constitutional ED: Reports lethargy; Denies chills, fever(s), sweats or weight loss Eyes Eyes: Denies blurry vision, change in vision or diplopia ENT ENT ED: Denies rhinorrhea or sore throat Cardiovascular Cardiovascular: Reports other Details: Bradycardia ; Denies chest pain, orthopnea or racing heartbeat Respiratory/Chest Respiratory/Chest: Denies cough, dyspnea, dyspnea on exertion, orthopnea or sputum Gastrointestinal Gastrointestinal: Denies abdominal pain, diarrhea, nausea or vomiting Genitourinary Genitourinary ED: Denies dysuria, hematuria or urinary frequency Musculoskeletal Musculoskeletal: Denies arthralgias, back pain, myalgias or neck pain Integumentary Denies abscess, Abrasions or rash Neurologic Neurologic: Reports other Details: Lightheadedness, no vertigo ; Denies headache(s) or weakness Psychiatric Psychiatric: Denies anxiety, depression or suicidal thoughts Endocrine Endocrinology: Denies polydipsia, polyphagia or polyuria Hematologic/Lymphat ic Hematologic/Lymphat ic: Denies easy bleeding, easy bruising or lymphadenopathy Allergic/Immunologi c Allergic/Immunologi c ED: Denies mouth swelling, tongue swelling or urticaria EXAM Physical Exam Const Vital Signs: 06/21/24 09:26 06/21/24 09:55 06/21/24 10:00 Temperature 97.7 F L Temperature Source Oral Pulse Rate 53 L 52 L Pulse Rate [Lying] 46 L Pulse Rate [Sitting (for 1 mi (more content not included)... Normal [facility] Eosinophil percentageOrdered By: Carly Adams on 06-21-2024 Eosinophils/100 WBC (Bld) 3.2 % 0-5 [facility] Erythrocyte distribution wid th (RBC) [Ratio]Ordered By: Carly Adams on 06-21-2024 Erythrocyte distribution width (RBC) [Entitic vol] 42.5 fL 35.1-43.9 [facility] Erythrocyte distribution wid th ratioOrdered By: Carly Adams on 06-21-2024 Erythrocyte distribution width (RBC) [Ratio] 13.7 % 11.6-14.6 [facility] Erythrocyte distribution wid th standard deviationOrdered By: Carly Adams on 06-21-2024 Erythrocyte distribution width (RBC) [Ratio] 42.5 fl 35.1-43.9 [facility] Estimation of creatinine negrito aranceOrdered By: Carly Adams on 06-21-2024 Estimated Creatinine Clearance Calc 87.64 ml/min 50-250 [facility] GFR/1.73 sq M.predicted toro g non-blacks MDRD (S/P/Bld) [Vol rate/Area]Ordered By: Carly Adams on 06-21-2024 Estimated GFR (MDRD) Non-Af Amer 81 >60 [facility] Comment on above: mL/min/1.73m2 CKD-EP I Creatinine Equation (2020) Glomerular filtration rate ( GFR) estimation/1.73 sq m using serum, plasma, or whole bOrdered By: Carly Adams on 06-21-2024 GFR/1.73 sq M.predicted among non-blacks MDRD (S/P/Bld) [Vol rate/Area] 81 mL/min/{1.73_m2} >60 [facility] Comment on above: mL/min/1.73m2 CKD-EP I Creatinine Equation (2020) Hematocrit Auto (Bld) [Volum e fraction]Ordered By: Carly Adams on 06-21-2024 Hematocrit (Bld) [Volume fraction] 43.7 % 40-54 [facility] Hemoglobin measurementOrdere d By: Carly Adams on 06-21-2024 Hemoglobin (Bld) [Mass/Vol] 14.6 g/dL 13.0-16.5 [facility] Immature granulocytes/100 WB C Auto (Bld)Ordered By: Carly Adams on 06-21-2024 Immature granulocytes/100 WBC (Bld) 0.500 % 0.0-0.9 [facility] Comment on above: IG% - Immature Granu locytes (promyelocytes, myelocytes and metamyelocytes) > 1% indicates that a LEFT SHIFT is Present. L501.4021on 06-21-2024 Trop T High Sen 8 ng/L Normal <=22 [facility] Comment on above: Performed By: #### L [id number] #### [facility] [address] [place], [address] Lymphocytes Auto (Unsp spec) [#/Vol]Ordered By: Carly Adams on 06-21-2024 Lymphocytes (Bld) [#/Vol] 1.74 10*3/uL 0.83-4.51 [facility] Lymphocytes/100 WBC Auto (Un sp spec)Ordered By: Carly Adams on 06-21-2024 Lymphocytes/100 WBC (Bld) 27.9 % 19-41 [facility] MCV (mean corpuscular volume ) determinationOrdered By: Carly Ungismael on 06-21-2024 MCV (RBC) [Entitic vol] 84.7 fL 80-94 [facility] Mean corpuscular hemoglobin (MCH) determinationOrdered By: Carly Ungismael on 06-21-2024 MCH (RBC) [Entitic mass] 28.3 pg 27.0-32.0 [facility] Mean corpuscular hemoglobin concentration (MCHC) determinationOrdered By: Carly Ungismael on 06-21-2024 MCHC (RBC) [Mass/Vol] 33.4 g/dL 32-36 [facility] Mean platelet volume determi nationOrdered By: Carly Adams on 06-21-2024 Platelet mean volume (Bld) [Entitic vol] 12.1 fL High 6.2-12.0 [facility] Monocyte percentageOrdered B y: Carly Adams on 06-21-2024 Monocytes/100 WBC (Bld) 12.7 % High 0-10 [facility] Neutrophil percentageOrdered By: Carly Adams on 06-21-2024 Neutrophils/100 WBC (Bld) 54.7 % 47-70 [facility] Nucleated red blood cell per centageOrdered By: Carly Adams on 06-21-2024 Nucleated RBC/100 WBC (Bld) [Ratio] 0 % 0-5 [facility] Platelet countOrdered By: Ilene Adams on 06-21-2024 Platelets (Bld) [#/Vol] 165 10*3/uL 150-450 [facility] Potassium (Unsp spec) [Mass/ Vol]Ordered By: Carly Adams on 06-21-2024 Potassium [Moles/Vol] 4.2 mmol/L 3.3-5.1 [facility] Potassium measurement (mass/ volume)Ordered By: Carly Adams on 06-21-2024 Potassium (Unsp spec) [Mass/Vol] 4.2 mmol/L 3.3-5.1 [facility] RBC Auto (Bld) [#/Vol]Ordere d By: Carly Adams on 06-21-2024 RBC (Bld) [#/Vol] 5.16 10*6/uL 4.6-6.2 [facility] Serum creatinine measurement (mass/volume)Ordered By: Remus Adams on 06-21-2024 Creatinine [Mass/Vol] 0.98 mg/dL 0.70-1.20 [facility] Serum glucose measurement (m ass/volume)Ordered By: Remus Adams on 06-21-2024 Glucose [Mass/Vol] 95 mg/dL 70-99 [facility] Serum or plasma calcium elio urement (mass/volume)Ordered By: Remus Bryan on 06-21-2024 Calcium [Mass/Vol] 9.2 mg/dL 7.6-11.0 [facility] Serum or plasma urea nitroge n measurement (mass/volume)Ordered By: Remus Adams on 06-21-2024 Urea nitrogen [Mass/Vol] 16 mg/dL 4-19 [facility] Sodium levelOrdered By: Kajal Adams on 06-21-2024 Sodium [Moles/Vol] 136 mmol/L 133-145 [facility] Troponin T.cardiac High sens itivity method [Mass/Vol]Ordered By: Calry Adams on 06-21-2024 Troponin T High Sensitivity 8 ng/L <22 [facility] Troponin T.cardiac [Mass/vol ume] in Serum or Plasma by High sensitivity methodOrdered By: Remus Adams on 06-21-2024 Troponin T.cardiac High sensitivity method [Mass/Vol] 8 ng/L <22 [facility] White blood cell (WBC) count Ordered By: Carly Adams on 06-21-2024 WBC (Bld) [#/Vol] 6.2 10*3/uL 4.4-11.0 [facility] Cardiology Visit Reporton Cardiology Visit Report [facility] [address] [place] [address] OFFICE VISIT Date of Service: 05/25/24 MR#: [id number] Acct: [id number] Name: RAMIRO LALA Rep #: [id number] : 1950 Provider: JAZMÍN Lam Age/Sex: 74/M Location[place] [facility] Status: Signed HPI HPI History of Present Illness Details: This is a 74-year-old white male who presents today for an outpatient cardiovascular follow-up. He was first seen in office in September 2021 based upon concerns of an abnormal preoperative ECG demonstrating atrial fibrillation superimposed upon a history of hypertension. He has undergone previous cardiovascular evaluation (approximately 2003) at [facility] with a diagnostic cardiac catheterization which was reported as unremarkable at that time . As part of the ReACT A-fib trial he did undergo a Biotel monitor. This did demonstrate an episode of atrial fibrillation that was 18 hours. Because of this he was referred to EP. He did not undergo an ablation, it was recommended that he lose weight and exercise first and use his CPAP. He has been using his CPAP and states that this makes a big difference. Pt notes that at times he has lightheadedness. He takes his Spo2, this is low along with his HRs. They are in the 40s. This is about once a month. He has started to walk routinely. He does not have any worsening SOB. He does not have any syncope. He does not have any chest pain. He does have some swelling in his legs. 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 Is patient in pain?: No Allergies No Known Allergies Allergy (Verified 05/25/24 08:48) Medications ???Medication ???Instructions ???Recorded ???Confirmed ???Type apixaban 5 mg tablet (Eliquis) 5 mg PO BID blood thinner #60 tabs 11/18/22 05/25/24 Rx furosemide 40 mg tablet 40 mg PO DAILY 08/25/23 05/25/24 H istory metoprolol tartrate 25 mg tablet 25 mg PO BID #120 tabs 08/25/23 Rx multivitamin 1 tab PO DAILY 08/25/23 05/25/24 H istory oxybutynin chloride 10 mg 10 mg PO QDAY 11/25/23 05/25/24 Hi story tablet,extended release 24 hr amlodipine 5 mg tablet 5 mg PO DAILY #90 tabs 05/25/24 Rx Ejection fraction %: 60 Have you fallen in the past year?: No PFSH Medical History Wears hearing aid Wears glasses Syncope Shortness of breath on exertion Leg cramps Nonrheumatic mitral (valve) insufficiency Encounter for education Atrial fibrillation Gross hematuria Nocturia Benign prostatic hyperplasia with lower urinary tract symptoms Elevated PSA Adenocarcinoma History of Holter monitoring History of echocardiogram History of left heart catheterization (LHC) ( 04/12/01) Essential hypertension New onset atrial fibrillation Cancer Prostate disease Migraine headache Non-smoker Chronic cough History of stress test Cardiology follow-up encounter Surgical History Hx of radical prostatectomy S/P vasectomy History of robot-assisted laparoscopic radical prostatectomy Hx of cataract surgery Hx of colonoscopy Hx of umbilical hernia repair History of cystoscopy History of tonsillectomy and adenoidectomy Hx of vasectomy Hx of hand surgery Family History Mother Hypertension Cancer Father Hypertension Social History Smoking Status: Never smoker alcohol intake: current alcohol intake frequency: holidays/special occasions only substance use type: does not use caffeine: Yes Type: coffee Number of servings: 2 ROS Const Const: Negative for fatigue, weakness, headache(s) or frequent falls Eyes Eyes: Negative for blurry vision ENT ENT: Negative for headache(s), dizziness or Nosebleed/epistaxis Cardio Chest Pain: No Palpitations: No Edema: Bilateral and None Muscle aches with walking: None Resp Respiratory: Positive for SOB with activity and SOB at rest; Negative for SOB orthopnea SOB lying down GI GI: Negative nausea, vomiting, heartburn, bright, red blood in stools or black,tarry stools : Negative for hematuria Neuro Neuro: Positive for lightheadedness; Negative for dizziness, near syncope, syncope, frequent falls, headache(s), weakness or blurry vision Endo Endo: Negative for fatigue Cardiology Exam Const Appearance: cooperative, no acu (more content not included)... Normal [facility] Diagnostic total prostate sp ecific antigen (PSA) measurementOrdered By: Ling Beck on 04-17-2024 Prostate Specific Antigen Total < 0.01 ng/mL 0.0-4.0 [facility] Comment on above: This test was perfor med using the TPSA assay method for the[employer] chemistry system. Values obtained with differentassay methods cannot be used interchangably.When changing PSA assays in the course of monitoring apatient, additional sequential testing should be carriedout to confirm baseline values. PSA,Total- Diagnosticon 04-07 PSA, DIAGNOSTIC < 0.01 Normal 0.0-4.0 [facility] Comment on above: Result Comment: This test was performed using the TPSA assay method for the [employer] chemistry system. Values obtained with different assay methods cannot be used interchangably. When changing PSA assays in the course of monitoring a patient, additional sequential testing should be carried out to confirm baseline values. Performed By: #### L 501.9940 #### [facility] [address] [place], [address] Radiation Oncology Visiton 1 03-10-2023 Radiation Oncology Visit [facility] [address] [place] [address] OFFICE VISIT Date of Service: 01/09/24928 MR#: [id number] Acct: [id number] Name: DAIRAMIRO PASTOR Rep #: [id number] : 1950 From: Yoav Olivares DO Age/Sex: 73/M Location: [facility] [place] Status: Signed Intake Vital Signs 07/11/23 10:20 11/25/23 10:10 01/09/24 09:30 Height 6 ft 6 ft 6 ft Weight: 274 lb BMI 37.1 BP 120/67 Blood Pressure Location Rt brachial Position Sitting Respiration 16 Pulse 51 L Pulse Source Monitor Temp 97.9 F Temperature Source Temporal Artery Pulse Oximetry (%) 93 Oxygen Delivery Method room air Intake Visit Reasons: 6 MONTH F/U PROSTATE Accompanied by: Is patient in pain?: No Allergies No Known Allergies Allergy (Verified 01/09/24 09:33) Medications ???Medication ???Instructions ???Recorded ???Confirmed ???Type apixaban 5 mg tablet (Eliquis) 5 mg PO BID blood thinner #60 tabs 11/18/22 01/09/24 Rx amlodipine 10 mg tablet 10 mg PO DAILY #90 tabs 08/25/23 01/09/24 Rx cetirizine 10 mg capsule (Zyrtec) 10 mg PO DAILY PRN 08/25/23 01/09/24 History furosemide 40 mg tablet 40 mg PO DAILY 08/25/23 01/09/24 History metoprolol tartrate 25 mg tablet 25 mg PO BID #120 tabs 08/25/23 01/09/24 Rx multivitamin 1 tab PO DAILY 08/25/23 01/09/24 History oxybutynin chloride 10 mg 10 mg PO QDAY 11/25/23 01/09/24 History tablet,extended release 24 hr Have you fallen in the past year?: No PFSH PFSH Medical History Wears hearing aid Wears glasses Syncope Shortness of breath on exertion Leg cramps Nonrheumatic mitral (valve) insufficiency Encounter for education Atrial fibrillation Gross hematuria Nocturia Benign prostatic hyperplasia with lower urinary tract symptoms Elevated PSA Adenocarcinoma History of Holter monitoring History of echocardiogram History of left heart catheterization (LHC) ( 04/12/01) Essential hypertension New onset atrial fibrillation Cancer Prostate disease Migraine headache Non-smoker Chronic cough History of stress test Cardiology follow-up encounter Home Medications ???Medication ???Instructions ???Recorded ???Last Taken ???Type apixaban 5 mg tablet (Eliquis) 5 mg PO BID blood thinner #60 tabs 11/18/22 01/15/23 Rx amlodipine 10 mg tablet 10 mg PO DAILY #90 tabs 08/25/23 Unknown Rx cetirizine 10 mg capsule (Zyrtec) 10 mg PO DAILY PRN 08/25/23 Unknown History furosemide 40 mg tablet 40 mg PO DAILY 08/25/23 Unknown History metoprolol tartrate 25 mg tablet 25 mg PO BID #120 tabs 08/25/23 Unknown Rx multivitamin 1 tab PO DAILY 08/25/23 Unknown History oxybutynin chloride 10 mg 10 mg PO QDAY 11/25/23 Unknown History tablet,extended release 24 hr Allergy/AdvReac Type Severity Reaction Status Date / Time No Known Allergies Allergy Verified 01/09/24 09:33 Family History Mother Hypertension Cancer Father Hypertension Surgical History Hx of radical prostatectomy S/P vasectomy History of robot-assisted laparoscopic radical prostatectomy Hx of cataract surgery Hx of colonoscopy Hx of umbilical hernia repair History of cystoscopy History of tonsillectomy and adenoidectomy Hx of vasectomy Hx of hand surgery Social History Smoking Status: Never smoker alcohol intake: current alcohol intake frequency: holidays/special occasions only substance use type: does not use caffeine: Yes Type: coffee Number of servings: 2 Diagnosis: Ramiro Lala is a 73-year-old male diagnosed with 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 Following surgery patient had a persistently elevated PSA at 0.49 (03/24/2022), PSMA PET scan was completed 04/20/2022. From 05/31/2022 - 07/15/2022 he completed salvage radiation therapy with ADT. History of Present Illness: 01/07/2021: TRUS guided prostate biopsy was performed.??? This demonstrated no evidence of malignancy in any of the biopsy cores. 08/05/2021: MRI pelvis with and without contrast was performed.??? This demonstrated a low T2 signal mass along the left peripheral zone with extension into the transition zone measuring 21 x 24 mm, this is a lobulated appearance and does not have a smooth border.??? There is noted to be some extracapsular extension likely to the left.??? (more content not included)... Normal [facility] PSA,Total- Diagnosticon 11-0 PSA, DIAGNOSTIC < 0.01 Normal 0.0-4.0 [facility] Comment on above: Result Comment: This test was performed using the TPSA assay method for the [employer] chemistry system. Values obtained with different assay methods cannot be used interchangably. When changing PSA assays in the course of monitoring a patient, additional sequential testing should be carried out to confirm baseline values. Performed By: #### L 501.9940 #### [facility] [address] [place], [address] Office Visiton 11-29-2023 Follow-up visit [id number] Ramiro Lala 1950 M Date Provider Department Center 11/29/2023 MAURICE CARROLL [facility] [address] Family History Problem Relation Age of Onset Hypertension Mother Cancer Mother Hypertension Father Family Status - Relation Status Age at Mother Father Level of Service:86489 NE OFFICE/OUTPATIENT NEW MODERATE MDM 45 MINUTES Reason for Visit and Comments: New Patient [542] - PAF Normal [facility] Progress Noteon 11-29-2023 Progress Note [facility] Cardiology Note Chief Complaint: Chief Complaint Patient presents with New Patient PAF History of Present Illness: Ramiro Lala is a 73 y.o. male presenting for evaluation of paroxysmal atrial fibrillation. Very pleasant gentleman with history of newly treated sleep apnea for about 2 weeks in the setting of hypertension and obesity. He was discovered to have atrial fibrillation fairly randomly and was asymptomatic initially. Records from the [place] [facility] are reviewed. A Holter monitor from the summer demonstrated shortness of breath and fatigue during sinus rhythm at normal rates. ECGs are available of atrial fibrillation as well dated 12 January 2023 with a ventricular response of 82 bpm. LV function is normal, no significant valvular disease is seen in reviewing these records and cardiac catheterization demonstrated mild coronary artery disease. In just 2 weeks of treatment of his sleep apnea, he has noted increase in energy overall and feels a bit better. His can also see this in him. He has recently gained about 50 pounds. He believes the last time he had atrial fibrillation is potentially about 6 months ago. Past Medical History: Past Medical History: Diagnosis Date Adenocarcinoma (HCC) Atrial fibrillation (HCC) Benign prostatic hyperplasia with lower urinary tract symptoms Cancer (CMS/HCC) (HCC) Chronic cough Elevated PSA Essential hypertension Hearing aid worn Hematuria, gross History of echocardiogram History of Holter monitoring History of left heart catheterization (LHC) History of stress test Leg cramps Migraine headache New onset atrial fibrillation (HCC) Nocturia Nonrheumatic mitral (valve) insufficiency Prostate disease SOB (shortness of breath) Syncope Past Surgical History Past Surgical History: Procedure Laterality Date CATARACT EXTRACTION COLONOSCOPY CYSTOSCOPY HAND SURGERY PROSTATECTOMY Hx of radical prostatectomy TONSILLECTOMY AND ADENOIDECTOMY (HISTORICAL) UMBILICAL HERNIA REPAIR VASECTOMY Family History Family History Problem Relation Name Age of Onset Hypertension Mother Cancer Mother Hypertension Father Social History Social History Tobacco Use Smoking status: Never Smokeless tobacco: Never Allergies: No Known Allergies Medications: Current Outpatient Medications: amLODIPine (Norvasc) 10 MG tablet, Take 10 mg by mouth daily., Disp: , Rfl: apixaban (Eliquis) 5 MG tablet, Take 5 mg by mouth 2 times daily., Disp: , Rfl: cetirizine (ZyrTEC) 10 MG tablet, Take 10 mg by mouth Daily as needed., Disp: , Rfl: furosemide (Lasix) 40 MG tablet, Take 40 mg by mouth daily. 4-5 days a week, Disp: , Rfl: metoprolol tartrate (Lopressor) 25 MG tablet, Take 25 mg by mouth 2 times daily., Disp: , Rfl: Multiple Vitamins-Minerals (multivitamin with minerals) tablet, Take 1 tablet by mouth daily., Disp: , Rfl: oxybutynin XL (Ditropan-XL) 10 MG 24 hr tablet, Take 10 mg by mouth daily. Do not crush, chew, or split., Disp: , Rfl: Review of Systems: Review of Systems Constitutional: Positive for fatigue. Negative for activity change, chills, diaphoresis and fever. HENT: Negative. Negative for nosebleeds and trouble swallowing. Eyes: Negative. Negative for discharge and visual disturbance. Respiratory: Positive for shortness of breath. Negative for apnea, cough, chest tightness and wheezing. Cardiovascular: Positive for palpitations. Negative for chest pain and leg swelling. Gastrointestinal: Negative. Negative for abdominal distention, abdominal pain, blood in stool, diarrhea, nausea and vomiting. Endocrine: Negative. Negative for cold intolerance and heat intolerance. Genitourinary: Negative. Negative for hematuria. Musculoskeletal: Negative. Negative for gait problem and myalgias. Skin: Negative. Negative for color change and rash. Neurological: Negative. Negative for dizziness, seizures, syncope, facial asymmetry, speech difficulty, weakness, light-headedness, numbness and headaches. Hematological: Negative. Does not bruise/bleed easily. Psychiatric/Behavio ral: Negative. Negative for dysphoric mood. Physical Examination: Vitals: Vitals: 11/29/23 0844 BP: 116/60 BP Location: Right arm Patient Position: Sitting BP Cuff Size: Adult Pulse: 61 SpO2: 94% Weight: 271 lb (123 kg) Height: 6' (1.829 m) Body mass index is 36.75 kg/m?. Physical Exam Vitals reviewed. Constitutional: Appearance: Normal appearance. HENT: Head: Normocephalic. Right Ear: External ear normal. Left Ear: External ear normal. Nose: Nose normal. Mouth/Throat: Mouth: Mucous membranes are moist. Eyes: Pupils: Pupils are equal, round, and reactive to light. Cardiovascular: Rate and Rhythm: Normal rate and regular rhythm. Heart sounds: No murmur heard. Pulmonary: Effort: No respiratory distress. Musculoskeletal: General: Normal r (more content not included)... Normal [facility] LABORATORYOrdered By: Jaden Mcarthur on 11-28-2023 Cholesterol [Mass/Vol] 125 mg/dL Normal 0 - 2 00 mg/dL AO ADM SS Comment on above: Interpretive Data: C holesterol Reference Interval: Less than 200 Desirable 200-239 Borderline high risk 240 and above High risk Cholesterol in HDL [Mass/Vol] 33 mg/dL Low 40 - 60 mg/dL AO ADM SS Cholesterol in LDL [Mass/Vol] 51 mg/dL Normal 0 - 130 mg/dL AO ADM SS Triglyceride [Mass/Vol] 206 mg/dL High 0 - 150 mg/dL AO ADM SS Comment on above: Interpretive Data: T riglyceride Reference Interval: Less than 150 Normal 150-199 Borderline high risk 200-499 High risk 500 or higher Very high risk LIPIDon 11-28-2023 Cholesterol [Mass/Vol] 125 mg/dL Normal 0-200 [facility] Comment on above: Result Comment: Chol esterol Reference Interval: Less than 200 Desirable 200-239 Borderline high risk 240 and above High risk Performed By: #### L IPID #### [address] [address] Cholesterol in HDL [Mass/Vol] 33 mg/dL Low 40-60 [facility] Comment on above: Performed By: #### L IPID #### [address] [place], [place] [address] Cholesterol in LDL [Mass/Vol] 51 mg/dL Normal 0-130 [facility] Comment on above: Performed By: #### L IPID #### [address] [place], [place] [address] Triglyceride [Mass/Vol] 206 mg/dL High 0-150 [facility] Comment on above: Result Comment: Trig lyceride Reference Interval: Less than 150 Normal 150-199 Borderline high risk 200-499 High risk 500 or higher Very high risk Performed By: #### L IPID #### [address] [address] Cardiology Visit Reporton Cardiology Visit Report [facility] [place], [place] [address] OFFICE VISIT Date of Service: 11/25/23 MR#: [id number] Acct: [id number] Name: RAMIRO LALA Rep #: [id number] 1 : 1950 Provider: JAZMÍN Lam Age/Sex: 73/M Location: [facility] Status: Signed HPI [facility] History of Present Illness Details: This is a 73-year-old white male who presents today for an outpatient cardiovascular follow-up. He was first seen in office in September 2021 based upon concerns of an abnormal preoperative ECG demonstrating atrial fibrillation superimposed upon a history of hypertension. He has undergone previous cardiovascular evaluation (approximately 2003) at [facility] with a diagnostic cardiac catheterization which was reported as unremarkable at that time . As part of the ReACT A-fib trial he did undergo a Biotel monitor. This did demonstrate an episode of atrial fibrillation that was 18 hours. Because of this he was referred to EP. He started his CPAP last month and feels better. He is seeing EP next week (Maurice Fulton). He does not have any chest pain. He does not have any worsening SOB. He does not have any palpitations. He is getting energy back to exercise. He does not have any swelling. 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 Is patient in pain?: No Allergies No Known Allergies Allergy (Verified 11/25/23 10:10) Medications ???Medication ???Instructions ???Recorded ???Confirmed ???Type apixaban 5 mg tablet (Eliquis) 5 mg PO BID blood thinner #60 tabs 11/18/22 11/25/23 Rx amlodipine 10 mg tablet 10 mg PO DAILY #90 tabs 08/25/23 11/25/23 Rx cetirizine 10 mg capsule (Zyrtec) 10 mg PO DAILY PRN 08/25/23 11/25/23 History furosemide 40 mg tablet 40 mg PO DAILY 08/25/23 11/25/23 History metoprolol tartrate 25 mg tablet 25 mg PO BID #120 tabs 08/25/23 11/25/23 Rx multivitamin 1 tab PO DAILY 08/25/23 11/25/23 History oxybutynin chloride 10 mg 10 mg PO QDAY 11/25/23 11/25/23 History tablet,extended release 24 hr Have you fallen in the past year?: No PFSH Medical History Wears hearing aid Wears glasses Syncope Shortness of breath on exertion Leg cramps Nonrheumatic mitral (valve) insufficiency Encounter for education Atrial fibrillation Gross hematuria Nocturia Benign prostatic hyperplasia with lower urinary tract symptoms Elevated PSA Adenocarcinoma History of Holter monitoring History of echocardiogram History of left heart catheterization (LHC) ( 04/12/01) Essential hypertension New onset atrial fibrillation Cancer Prostate disease Migraine headache Non-smoker Chronic cough History of stress test Cardiology follow-up encounter Surgical History Hx of radical prostatectomy S/P vasectomy History of robot-assisted laparoscopic radical prostatectomy Hx of cataract surgery Hx of colonoscopy Hx of umbilical hernia repair History of cystoscopy History of tonsillectomy and adenoidectomy Hx of vasectomy Hx of hand surgery Family History Mother Hypertension Cancer Father Hypertension Social History Smoking Status: Never smoker alcohol intake: current alcohol intake frequency: holidays/special occasions only substance use type: does not use caffeine: Yes Type: coffee Number of servings: 2 ROS Const Const: Negative for fatigue, weakness, headache(s) or daytime sleepiness Eyes Eyes: Negative for loss of peripheral vision or change in vision ENT ENT: Positive for dizziness; Negative for headache(s), hearing loss, Nosebleed/epistaxis or balance problems Cardio Chest Pain: No Palpitations: No Edema: None Muscle aches with walking: None Resp Respiratory: Negative for SOB with activity, SOB at rest or SOB orthopnea SOB lying down GI GI: Negative nausea, vomiting or heartburn Musc Musc: Negative for muscle aches/ myalgia, muscle weakness, joint pain or balance problems Neuro Neuro: Positive for dizziness; Negative for headache(s) or weakness Endo Endo: Negative for fatigue Cardiology Exam Const Appearance: cooperative, no acute distress and well developed Orientation: alert, awake and oriented x3 Head Head: normocephalic and atraumatic Mouth: moist mucous membranes (more content not included)... Normal [facility] PSA,Total- Diagnosticon 10-05 PSA, DIAGNOSTIC < 0.01 Normal 0.0-4.0 [facility] Comment on above: Result Comment: This test was performed using the TPSA assay method for the [employer] chemistry system. Values obtained with different assay methods cannot be used interchangably. When changing PSA assays in the course of monitoring a patient, additional sequential testing should be carried out to confirm baseline values. Performed By: #### L 501.9940, L509.3000 #### [facility] [address] [place], [address] Testosterone, Serum Totalon 10-17-2023 Testosterone [Mass/Vol] 189.40 ng/dL Normal [facility] Comment on above: Result Comment: CENT RAL 90% REFERENCE RANGES MALE AGE <50 197.44 - 669.58 ng/dL MALE AGE > or = 50 187.72 - 684.19 ng/dL FEMALE AGE <50 8.38 - 35.01 ng/dL FEMALE AGE > or = 50 <7.00 - 35.92 ng/dL Effective as of 09/30/20 Performed By: #### L 501.9940, L509.3000 #### [facility] [address] [place], [address] BNP,B-Type NATRIURETIC PEPTI Elaine 10-05-2023 Natriuretic peptide B (Bld) [Mass/Vol] 46.4 pg/mL Normal 0-100 [facility] Comment on above: Performed By: #### L 501.5200, L100.0100, L503.6620, L500.2500, L501.9520 #### [facility] [address] [place], [address] Basic Metabolic Profile (BMP )on 10-05-2023 BUN/CRE 14.4 RATIO Normal 10-20 [facility] Comment on above: Performed By: #### L 501.5200, L100.0100, L503.6620, L500.2500, L501.9520 #### [facility] [address] [place], [address] CA,Total 9.0 mg/dL Normal 8.5-10.1 [facility] Comment on above: Performed By: #### L 501.5200, L100.0100, L503.6620, L500.2500, L501.9520 #### [facility] [address] [place], [address] Chloride [Moles/Vol] 107 mmol/L Normal 98-107 [facility] Comment on above: Performed By: #### L 501.5200, L100.0100, L503.6620, L500.2500, L501.9520 #### [facility] [address] [place], [address] CO2 [Moles/Vol] 28.0 mmol/L Normal 21.0-32.0 [facility] Comment on above: Performed By: #### L 501.5200, L100.0100, L503.6620, L500.2500, L501.9520 #### [facility] [address] [place], [address] Creatinine [Mass/Vol] 0.98 mg/dL Normal 0.70-1.30 [facility] [place] [facility] Comment on above: Result Comment: The validity of the calculated GFR GFRAA in patients over 70 years has not been determined. Clinical correlation is essential. Performed By: #### L 501.5200, L100.0100, L503.6620, L500.2500, L501.9520 #### [facility] [address] [place], [address] EST GFR - AA 97 mL/min Normal >60 [facility] Comment on above: Result Comment: Afri can Guinean GFR Calc Performed By: #### L 501.5200, L100.0100, L503.6620, L500.2500, L501.9520 #### [facility] [address] [place], [address] GAP 3 Low 5-15 [facility] Comment on above: Performed By: #### L 501.5200, L100.0100, L503.6620, L500.2500, L501.9520 #### [facility] [address] [place], [address] GFR/1.73 sq M.predicted among non-blacks MDRD (S/P/Bld) [Vol rate/Area] 80 mL/min/{1.73_m2} Normal >60 [facility] Comment on above: Result Comment: Non- GFR Calc Performed By: #### L 501.5200, L100.0100, L503.6620, L500.2500, L501.9520 #### [facility] [address] [place], [address] Glucose [Mass/Vol] 124 mg/dL High 74-106 [facility] Comment on above: Result Comment: Fast ing Glucose result from 100 to 125 mg/dL suggests IMPAIRED HOMEOSTASIS per A.D.A. criteria. Performed By: #### L 501.5200, L100.0100, L503.6620, L500.2500, L501.9520 #### [facility] [address] [place], [address] Potassium [Moles/Vol] 3.9 mmol/L Normal 3.5-5.1 [facility] [place] [facility] Comment on above: Performed By: #### L 501.5200, L100.0100, L503.6620, L500.2500, L501.9520 #### [facility] [address] [place], [address] Sodium [Moles/Vol] 138 mmol/L Normal 136-145 [facility] Comment on above: Performed By: #### L 501.5200, L100.0100, L503.6620, L500.2500, L501.9520 #### [facility] [address] [place], [address] Urea nitrogen [Mass/Vol] 14 mg/dL Normal 7-18 [facility] Comment on above: Performed By: #### L 501.5200, L100.0100, L503.6620, L500.2500, L501.9520 #### [facility] [address] [place], [address] CBC W/Diff, Automatedon 07-3 1-2024 Absolute Lymph 1.51 X10 3/uL Normal 0.83-4.51 [facility] Comment on above: Performed By: #### L 501.5200, L100.0100, L503.6620, L500.2500, L501.9520 #### [facility] [address] [place], [address] Absolute Neut 2.7 X10 3/uL Normal 2.0-7.7 [facility] Comment on above: Performed By: #### L 501.5200, L100.0100, L503.6620, L500.2500, L501.9520 #### [facility] [address] [place], [address] Basophils/100 WBC (Bld) 1.0 % Normal 0-1 [facility] Comment on above: Performed By: #### L 501.5200, L100.0100, L503.6620, L500.2500, L501.9520 #### [facility] [address] [place], [address] Eosinophils/100 WBC (Bld) 4.0 % Normal 0-5 [facility] Comment on above: Performed By: #### L 501.5200, L100.0100, L503.6620, L500.2500, L501.9520 #### [facility] [address] [place], [address] Erythrocyte distribution width (RBC) [Ratio] 14.0 % Normal 11.6-14.6 [facility] Comment on above: Performed By: #### L 501.5200, L100.0100, L503.6620, L500.2500, L501.9520 #### [facility] [address] [place], [address] Hematocrit (Bld) [Volume fraction] 43.9 % Normal 40-54 [facility] Comment on above: Performed By: #### L 501.5200, L100.0100, L503.6620, L500.2500, L501.9520 #### [facility] [address] [place], [address] Hemoglobin (Bld) [Mass/Vol] 14.5 g/dL Normal 13.0-16.5 [facility] Comment on above: Performed By: #### L 501.5200, L100.0100, L503.6620, L500.2500, L501.9520 #### [facility] [address] [place], [address] IG% 0.200 Normal 0.0-0.9 [facility] Comment on above: Result Comment: IG% - Immature Granulocytes (promyelocytes, myelocytes and metamyelocytes) > 1% indicates that a LEFT SHIFT is Present. Performed By: #### L 501.5200, L100.0100, L503.6620, L500.2500, L501.9520 #### [facility] [address] [place], [address] Lymphocytes/100 WBC (Bld) 30.2 % Normal 19-41 [facility] Comment on above: Performed By: #### L 501.5200, L100.0100, L503.6620, L500.2500, L501.9520 #### [facility] [address] [place], [address] MCH (RBC) [Entitic mass] 27.8 pg Normal 27.0-32.0 [facility] Comment on above: Performed By: #### L 501.5200, L100.0100, L503.6620, L500.2500, L501.9520 #### [facility] [address] [place], [address] MCHC (RBC) [Mass/Vol] 33.0 g/dL Normal 32-36 [facility] [place] [facility] Comment on above: Performed By: #### L 501.5200, L100.0100, L503.6620, L500.2500, L501.9520 #### [facility] [address] [place], [address] MCV (RBC) [Entitic vol] 84.1 fL Normal 80-94 [facility] Comment on above: Performed By: #### L 501.5200, L100.0100, L503.6620, L500.2500, L501.9520 #### [facility] [address] [place], [address] Monocytes/100 WBC (Bld) 10.8 % High 0-10 [facility] Comment on above: Performed By: #### L 501.5200, L100.0100, L503.6620, L500.2500, L501.9520 #### [facility] [address] [place], [address] Neutrophils/100 WBC (Bld) 53.8 % Normal 47-70 [facility] Comment on above: Performed By: #### L 501.5200, L100.0100, L503.6620, L500.2500, L501.9520 #### [facility] [address] [place], [address] Nucleated RBC (Bld) [#/Vol] 0 10*3/uL Normal 0-5 [facility] Comment on above: Performed By: #### L 501.5200, L100.0100, L503.6620, L500.2500, L501.9520 #### [facility] [address] [place], [address] Platelet mean volume (Bld) [Entitic vol] 11.4 fL Normal 6.2-12.0 [facility] Comment on above: Performed By: #### L 501.5200, L100.0100, L503.6620, L500.2500, L501.9520 #### [facility] [address] [place], [address] Platelets (Bld) [#/Vol] 205 10*3/uL Normal 150-450 [facility] Comment on above: Performed By: #### L 501.5200, L100.0100, L503.6620, L500.2500, L501.9520 #### [facility] [address] [place], [address] RBC (Bld) [#/Vol] 5.22 10*6/uL Normal 4.6-6.2 [facility] Comment on above: Performed By: #### L 501.5200, L100.0100, L503.6620, L500.2500, L501.9520 #### [facility] [address] [place], [address] RDW SD 42.7 fl Normal 35.1-43.9 [facility] Comment on above: Performed By: #### L 501.5200, L100.0100, L503.6620, L500.2500, L501.9520 #### [facility] [address] [place], [address] WBC (Bld) [#/Vol] 5.0 10*3/uL Normal 4.4-11.0 [facility] Comment on above: Performed By: #### L 501.5200, L100.0100, L503.6620, L500.2500, L501.9520 #### [facility] [address] [place], [address] Magnesiumon 10-05-2023 Magnesium [Mass/Vol] 2.2 mg/dL Normal 1.6-2.6 [facility] Comment on above: Performed By: #### L 501.5200, L100.0100, L503.6620, L500.2500, L501.9520 #### [facility] [address] [place], [address] Thyroid Stim Hormone (TSH)on 10-05-2023 TSH 1.14 uIU/mL Normal 0.358-3.74 [facility] Comment on above: Performed By: #### L 501.5200, L100.0100, L503.6620, L500.2500, L501.9520 #### [facility] [place], [address] Basophil percentageOrdered B y: Yoav Olivares on 07-08-2023 Basophil percentage < 0.01 ng/mL 0.0-4.0 [facility] [place] [facility] Comment on above: This test was perfor med using the TPSA assay method for theDimension chemistry system. Values obtained with differentassay methods cannot be used interchangably.When changing PSA assays in the course of monitoring apatient, additional sequential testing should be carriedout to confirm baseline values. Basophil percentageOrdered B y: Aneudy Santiago on 04-11-2023 Basophil percentage < 0.01 ng/mL 0.0-4.0 [facility] [place] [facility] Comment on above: This test was perfor med using the TPSA assay method for theDimension chemistry system. Values obtained with differentassay methods cannot be used interchangably.When changing PSA assays in the course of monitoring apatient, additional sequential testing should be carriedout to confirm baseline values. Absolute lymphocyte countOrd ered By: Luis Pringle on 03-03-2023 Lymphocytes Auto (Unsp spec) [#/Vol] 1.00 10*3/uL 0.83-4.51 [facility] Basophil percentageOrdered B y: Luis Pringle on 03-03-2023 Basophils/100 WBC (Bld) 0.9 % 0-1 [facility] Chloride [Moles/Vol] 105 mmol/L 98-107 [facility] Eosinophils/100 WBC (Bld) 5.1 % 0-5 [facility] Glucose [Mass/Vol] 124 mg/dL 74-106 [facility] Comment on above: Fasting Glucose resu lt from 100 to 125 mg/dL suggests IMPAIRED HOMEOSTASIS per A.D.A. criteria. Neutrophils (Bld) [#/Vol] 2.8 10*3/uL 2.0-7.7 [facility] Neutrophils/100 WBC (Bld) 61.6 % 47-70 [facility] Potassium [Moles/Vol] 3.7 mmol/L 3.5-5.1 [facility] [place] [facility] Sodium [Moles/Vol] 138 mmol/L 136-145 [facility] WBC (Bld) [#/Vol] 4.5 10*3/uL 4.4-11.0 [facility] Blood erythrocytes count (nu mber/volume)Ordered By: Luis Pringle on 03-03-2023 RBC (Bld) [#/Vol] 4.63 10*6/uL 4.6-6.2 [facility] Blood hemoglobin measurement (mass/volume)Ordered By: Luis Pringle on 03-03-2023 Hemoglobin (Bld) [Mass/Vol] 13.1 g/dL 13.0-16.5 [facility] Blood lymphocytes/100 leukoc ytesOrdered By: Luis Pringle on 03-03-2023 Lymphocytes/100 WBC (Bld) 22.2 % 19-41 [facility] Blood monocytes/100 leukocyt esOrdered By: Luis Pringle on 03-03-2023 Monocytes/100 WBC (Bld) 10.0 % 0-10 [facility] Blood platelet mean volumeOr dered By: Luis Pringle on 03-03-2023 Platelet mean volume (Bld) [Entitic vol] 11.2 fL 6.2-12.0 [facility] Determination of erythrocyte mean corpuscular volume (MCV)Ordered By: Luis Pringle on 03-03-2023 MCV (RBC) [Entitic vol] 86.6 fL 80-94 [facility] Hematocrit Auto (Bld) [Volum e fraction]Ordered By: Luis Pringle on 03-03-2023 Hematocrit (Bld) [Volume fraction] 40.1 % 40-54 [facility] - Chemistry and C hemistry - challengeOrdered By: Luis Pringle on 03-03-2023 CO2 [Moles/Vol] 25.0 mmol/L 21.0-32.0 [facility] Urea nitrogen/Creatinine [Mass ratio] 18.0 mg/mg 10-20 [facility] - Hematology and Cell countsOrdered By: Luis Pringle on 03-03-2023 Erythrocyte distribution width (RBC) [Entitic vol] 41.4 fL 35.1-43.9 [facility] Erythrocyte distribution width (RBC) [Ratio] 13.2 % 11.6-14.6 [facility] Immature granulocytes/100 WBC (Bld) 0.200 % 0.0-0.9 [facility] Comment on above: IG% - Immature Granu locytes (promyelocytes, myelocytes and metamyelocytes) > 1% indicates that a LEFT SHIFT is Present. MCH (RBC) [Entitic mass] 28.3 pg 27.0-32.0 [facility] Nucleated RBC/100 WBC (Bld) [Ratio] 0 % 0-5 [facility] MCHC Auto (RBC) [Mass/Vol]Or dered By: Luis Pringle on 03-03-2023 MCHC (RBC) [Mass/Vol] 32.7 g/dL 32-36 [facility] [place] [facility] No Panel InformationOrdered By: Luis Pringle on 03-03-2023 Estimated Creatinine Clearance Calc 71.13 ml/min [facility] Estimated GFR (MDRD) Amer 94 mL/min >60 [facility] Comment on above: GFR Calc Estimated GFR (MDRD) Non-Af Amer 78 mL/min >60 [facility] Comment on above: Non- GFR Calc Platelets bldOrdered By: Edilberto Pringle on 03-03-2023 Platelets (Bld) [#/Vol] 179 10*3/uL 150-450 [facility] Serum or plasma calcium elio urement (mass/volume)Ordered By: Luis Pringle on 03-03-2023 Calcium [Mass/Vol] 9.1 mg/dL 8.5-10.1 [facility] Serum or plasma creatinine m easurement (mass/volume)Ordered By: Luis Pringle on 03-03-2023 Creatinine [Mass/Vol] 1.00 mg/dL 0.70-1.30 [facility] [place] [facility] Comment on above: The validity of the calculated GFR & GFRAA in patients over 70 years has not been determined. Clinical correlation is essential. Serum or plasma urea nitroge n measurement (mass/volume)Ordered By: Luis Pringle on 03-03-2023 Urea nitrogen [Mass/Vol] 18 mg/dL 7-18 [facility] Thin prep Papanicolaou smear with manual screeningOrdered By: Luis Pringle on 03-03-2023 Thin prep Papanicolaou smear with manual screening 07-19 [facility] .GFRon 02-07-2023 GFR 83 ml/min/1.73sqm Normal [facility] ([place]) Comment on above: Result Comment: GFR Population mean for , Non- Americans Ages 20-29 = 116 mL/min/1.73 sq.m. Ages 30-39 = 107 mL/min/1.73 sq.m. Ages 40-49 = 99 mL/min/1.73 sq.m. Ages 50-59 = 93 mL/min/1.73 sq.m. Ages 60-69 = 85 mL/min/1.73 sq.m. Ages 70+ = 75 mL/min/1.73 sq.m. Chronic Kidney Disease: Less than 60 mL/min/1.73 square meters End Stage Renal Disease: Less than 15 mL/min/1.73 square meters Performed By: #### C MP, GFR #### [address] [address] GFR Non- 68 ml/min/1.73sqm Normal [facility] ([place]) Comment on above: Result Comment: GFR Population mean for , Non- Americans Ages 20-29 = 116 mL/min/1.73 sq.m. Ages 30-39 = 107 mL/min/1.73 sq.m. Ages 40-49 = 99 mL/min/1.73 sq.m. Ages 50-59 = 93 mL/min/1.73 sq.m. Ages 60-69 = 85 mL/min/1.73 sq.m. Ages 70+ = 75 mL/min/1.73 sq.m. Chronic Kidney Disease: Less than 60 mL/min/1.73 square meters End Stage Renal Disease: Less than 15 mL/min/1.73 square meters Performed By: #### C MP, GFR #### [address] [address] CMPon 02-07-2023 Albumin Level 3.5 G/dL Normal 3.4-4.8 [facility] ([place]) Comment on above: Performed By: #### C MP, GFR #### [address] [address] Albumin/Globulin [Mass ratio] 1.1 {ratio} Normal 1.1-2.5 [facility] ([place]) Comment on above: Performed By: #### C MP, GFR #### [address] [address] ALP [Catalytic activity/Vol] 87 U/L Normal 40-135 [facility] ([place]) Comment on above: Performed By: #### C MP, GFR #### [address] [address] ALT [Catalytic activity/Vol] 31 U/L Normal 16-63 [facility] ([place]) Comment on above: Performed By: #### C MP, GFR #### [address] [address] AST [Catalytic activity/Vol] 17 U/L Normal 10-40 [facility] ([place]) Comment on above: Performed By: #### C MP, GFR #### [address] [address] Bili Total 0.5 mg/dL Normal 0.2-1.0 [facility] ([place]) Comment on above: Result Comment: Use of this assay is not recommended for patients undergoing treatment with eltrombopag due to the potential for falsely elevated results. Performed By: #### C MP, GFR #### [address] [address] BUN/Creatinine Ratio 14 ratio Normal 7-27 [facility] ([place]) Comment on above: Performed By: #### C MP, GFR #### [address] [address] Calcium [Mass/Vol] 9.6 mg/dL Normal 8.4-10.2 [facility] ([place]) Comment on above: Performed By: #### C MP, GFR #### [address] [address] Chloride [Moles/Vol] 104 mmol/L Normal 98-107 [facility] ([place]) Comment on above: Performed By: #### C MP, GFR #### [address] [address] CO2 [Moles/Vol] 29 mmol/L Normal 23-31 [facility] ([place]) Comment on above: Performed By: #### C MP, GFR #### [address] [address] Creatinine [Mass/Vol] 1.06 mg/dL Normal 0.70-1.30 [facility] ([place]) Comment on above: Performed By: #### C MP, GFR #### [address] [address] Electrolyte Balance 7.0 mEq/L Normal 4.0-15.0 [facility] ([place]) Comment on above: Performed By: #### C MP, GFR #### [address] [address] Globulin 3.3 G/dL Normal [facility] ([place]) Comment on above: Performed By: #### C MP, GFR #### [address] [address] Glucose [Mass/Vol] 97 mg/dL Normal 83-110 [facility] ([place]) Comment on above: Performed By: #### C MP, GFR #### [address] [address] Potassium [Moles/Vol] 4.6 mmol/L Normal 3.5-5.1 [facility] ([place]) Comment on above: Performed By: #### C MP, GFR #### [address] [address] Sodium [Moles/Vol] 140 mmol/L Normal 136-145 [facility] ([place]) Comment on above: Performed By: #### C MP, GFR #### [address] [address] Total Protein 6.8 G/dL Normal 6.4-8.2 [facility] ([place]) Comment on above: Performed By: #### C MP, GFR #### [facility] [address] [place], [place] [address] Urea nitrogen [Mass/Vol] 15 mg/dL Normal 7-18 [facility] ([place]) Comment on above: Performed By: #### C MP, GFR #### [address] [place], [place] [address] Basophil percentageOrdered B y: Beto Huizar on 01-12-2023 Chloride [Moles/Vol] 107 mmol/L 98-107 [facility] Glucose [Mass/Vol] 125 mg/dL 74-106 [facility] Comment on above: Fasting Glucose resu lt from 100 to 125 mg/dL suggests IMPAIRED HOMEOSTASIS per A.D.A. criteria. Potassium [Moles/Vol] 4.0 mmol/L 3.5-5.1 [facility] [place] [facility] Sodium [Moles/Vol] 137 mmol/L 136-145 [facility] WBC (Bld) [#/Vol] 5.3 10*3/uL 4.4-11.0 [facility] Blood erythrocytes count (nu mber/volume)Ordered By: Beto Huizar on 01-12-2023 RBC (Bld) [#/Vol] 4.63 10*6/uL 4.6-6.2 [facility] Blood hemoglobin measurement (mass/volume)Ordered By: Beto Huizar on 01-12-2023 Hemoglobin (Bld) [Mass/Vol] 13.6 g/dL 13.0-16.5 [facility] Blood platelet mean volumeOr dered By: Beto Huizar on 01-12-2023 Platelet mean volume (Bld) [Entitic vol] 11.4 fL 6.2-12.0 [facility] Determination of erythrocyte mean corpuscular volume (MCV)Ordered By: Beto Huizar on 01-12-2023 MCV (RBC) [Entitic vol] 86.6 fL 80-94 [facility] Hematocrit Auto (Bld) [Volum e fraction]Ordered By: Beto Huizar on 01-12-2023 Hematocrit (Bld) [Volume fraction] 40.1 % 40-54 [facility] - Chemistry and C hemistry - challengeOrdered By: Beto Huizar on 01-12-2023 CO2 [Moles/Vol] 23.0 mmol/L 21.0-32.0 [facility] Urea nitrogen/Creatinine [Mass ratio] 16.3 mg/mg 10-20 [facility] - Hematology and Cell countsOrdered By: Beto Huizar on 01-12-2023 Erythrocyte distribution width (RBC) [Entitic vol] 40.9 fL 35.1-43.9 [facility] Erythrocyte distribution width (RBC) [Ratio] 13.1 % 11.6-14.6 [facility] MCH (RBC) [Entitic mass] 29.4 pg 27.0-32.0 [facility] MCHC Auto (RBC) [Mass/Vol]Or dered By: Beto Huizar on 01-12-2023 MCHC (RBC) [Mass/Vol] 33.9 g/dL 32-36 [facility] [place] [facility] No Panel InformationOrdered By: Beto Huizar on 01-12-2023 Estimated GFR (MDRD) Amer 103 mL/min >60 [facility] Comment on above: GFR Calc Estimated GFR (MDRD) Non-Af Amer 85 mL/min >60 [facility] Comment on above: Non- GFR Calc Platelets bldOrdered By: Sudha Huizar on 01-12-2023 Platelets (Bld) [#/Vol] 198 10*3/uL 150-450 [facility] Serum or plasma calcium elio urement (mass/volume)Ordered By: Beto Huizar on 01-12-2023 Calcium [Mass/Vol] 9.1 mg/dL 8.5-10.1 [facility] Serum or plasma creatinine m easurement (mass/volume)Ordered By: Beto Huizar on 01-12-2023 Creatinine [Mass/Vol] 0.92 mg/dL 0.70-1.30 [facility] [place] [facility] Comment on above: The validity of the calculated GFR & GFRAA in patients over 70 years has not been determined. Clinical correlation is essential. Serum or plasma urea nitroge n measurement (mass/volume)Ordered By: Beto Huizar on 01-12-2023 Urea nitrogen [Mass/Vol] 15 mg/dL -18 [facility] Thin prep Papanicolaou smear with manual screeningOrdered By: Beto Huizar on 01-12-2023 Thin prep Papanicolaou smear with manual screening 7 - [facility] No Panel InformationOrdered By: Aneudy Santiago on 01-05-2023 Prostate Specific Antigen Total < 0.01 ng/mL 0.0-4.0 [facility] Comment on above: This test was perfor med using the TPSA assay method for the[employer] chemistry system. Values obtained with differentassay methods cannot be used interchangably.When changing PSA assays in the course of monitoring apatient, additional sequential testing should be carriedout to confirm baseline values. No Panel InformationOrdered By: FARIBA Archibald on 09-29-2022 Prostate Specific Antigen Total < 0.01 ng/mL 0.0-4.0 [facility] Comment on above: This test was perfor med using the TPSA assay method for theDimension chemistry system. Values obtained with differentassay methods cannot be used interchangably.When changing PSA assays in the course of monitoring apatient, additional sequential testing should be carriedout to confirm baseline values. XR HIP 2-3 VIEWS LEFTon 09-05 XR HIP 2-3 VIEWS LEFT ORIGINAL EXAMINATION: 2 XRAY VIEWS OF THE LEFT HIP09/22/2022 4:16 pm HIP LEFT XR COMPARISON: None HISTORY: ORDERING SYSTEM PROVIDED HISTORY: Reason for Exam: left hip pain, FINDINGS: No acute fracture, dislocation, lytic process or periosteal reaction is seen in the visualized bones and joints. No erosive type of arthritis. No periarticular soft tissue calcification. There is mild hip osteoarthritis without joint space narrowing. Mild peritrochanteric ossification adjacent to the greater trochanter. Normal left SI joint. IMPRESSION: No acute skeletal abnormality is seen. . Minimal left hip osteoarthritis and left Vicky trochanteric ossification that may be sign of gluteal tendinopathy. Interpreted by: Colton Rizzo MD Preliminary Report By: Colton Rizzo MD Electronically signed By Colton Rizzo MD Dictated Date: 09/26/2022 9:34:12 PM Prelim Date: 09/26/2022 9:35:05 PM Sign Date: 09/26/2022 9:35:05 PM Ordering Provider: AISSATOU TRUJILLO [facility] ([place]) Basophil percentageOrdered B y: Yvon Yang on 08-27-2022 Chloride [Moles/Vol] 107 mmol/L 98-107 [facility] Glucose [Mass/Vol] 106 mg/dL 74-106 [facility] Comment on above: Fasting Glucose resu lt from 100 to 125 mg/dL suggests IMPAIRED HOMEOSTASIS per A.D.A. criteria. Potassium [Moles/Vol] 3.9 mmol/L 3.5-5.1 [facility] [place] [facility] Sodium [Moles/Vol] 140 mmol/L 136-145 [facility] WBC (Bld) [#/Vol] 4.5 10*3/uL 4.4-11.0 [facility] Blood erythrocytes count (nu mber/volume)Ordered By: Yvon Yang on 08-27-2022 RBC (Bld) [#/Vol] 4.33 10*6/uL 4.6-6.2 [facility] Blood hemoglobin measurement (mass/volume)Ordered By: Yvon Yang on 08-27-2022 Hemoglobin (Bld) [Mass/Vol] 12.7 g/dL 13.0-16.5 [facility] Blood platelet mean volumeOr dered By: Yvon Yang on 08-27-2022 Platelet mean volume (Bld) [Entitic vol] 10.8 fL 6.2-12.0 [facility] Determination of erythrocyte mean corpuscular volume (MCV)Ordered By: Yvon Yang on 08-27-2022 MCV (RBC) [Entitic vol] 87.5 fL 80-94 [facility] Hematocrit Auto (Bld) [Volum e fraction]Ordered By: Yvon Yang on 08-27-2022 Hematocrit (Bld) [Volume fraction] 37.9 % 40-54 [facility] - Chemistry and C hemistry - challengeOrdered By: Yvon Yang on 08-27-2022 CO2 [Moles/Vol] 24.0 mmol/L 21.0-32.0 [facility] Natriuretic peptide B (Bld) [Mass/Vol] 16.9 pg/mL 0-100 [facility] Urea nitrogen/Creatinine [Mass ratio] 17.3 mg/mg 10-20 [facility] - Hematology and Cell countsOrdered By: Yvon Yang on 08-27-2022 Erythrocyte distribution width (RBC) [Entitic vol] 43.3 fL 35.1-43.9 [facility] Erythrocyte distribution width (RBC) [Ratio] 13.4 % 11.6-14.6 [facility] MCH (RBC) [Entitic mass] 29.3 pg 27.0-32.0 [facility] MCHC Auto (RBC) [Mass/Vol]Or dered By: Yvon Yang on 08-27-2022 MCHC (RBC) [Mass/Vol] 33.5 g/dL 32-36 [facility] [place] [facility] No Panel InformationOrdered By: Yvon Yang on 08-27-2022 Estimated GFR (MDRD) Amer 96 mL/min >60 [facility] Comment on above: GFR Calc Estimated GFR (MDRD) Non-Af Amer 80 mL/min >60 [facility] Comment on above: Non- GFR Calc Thyroid Stimulating Hormone (TSH) 1.02 uIU/mL 0.358-3.74 [facility] Platelets bldOrdered By: Gordo Yang on 08-27-2022 Platelets (Bld) [#/Vol] 189 10*3/uL 150-450 [facility] Serum or plasma calcium elio urement (mass/volume)Ordered By: Yvon Yang on 08-27-2022 Calcium [Mass/Vol] 9.1 mg/dL 8.5-10.1 [facility] Serum or plasma creatinine m easurement (mass/volume)Ordered By: Yvon Yang on 08-27-2022 Creatinine [Mass/Vol] 0.98 mg/dL 0.70-1.30 [facility] [place] [facility] Comment on above: The validity of the calculated GFR & GFRAA in patients over 70 years has not been determined. Clinical correlation is essential. Serum or plasma urea nitroge n measurement (mass/volume)Ordered By: Yvon Yang on 08-27-2022 Urea nitrogen [Mass/Vol] 17 mg/dL 7-18 [facility] Thin prep Papanicolaou smear with manual screeningOrdered By: Yvon Yang on 08-27-2022 Thin prep Papanicolaou smear with manual screening 9 5-15 [facility] Basophil percentageOrdered B y: Dr. Huizar on 08-18-2022 Creatinine [Mass/Vol] 1.0 mg/dL 0.70-1.30 [facility] [place] [facility] No Panel InformationOrdered By: Dr. Huizar on 08-18-2022 Bedside Estimated GFR (eGFR) > 60.0000 mL/min >60 [facility] Basophil percentageOrdered B y: Yvon Yang on 06-01-2022 Chloride [Moles/Vol] 105 mmol/L 98-107 [facility] Glucose [Mass/Vol] 79 mg/dL 74-106 [facility] Potassium [Moles/Vol] 4.3 mmol/L 3.5-5.1 [facility] [place] [facility] Sodium [Moles/Vol] 136 mmol/L 136-145 [facility] - Chemistry and C hemistry - challengeOrdered By: Yvon Yang on 06-01-2022 CO2 [Moles/Vol] 28.0 mmol/L 21.0-32.0 [facility] Urea nitrogen/Creatinine [Mass ratio] 26.6 mg/mg 10-20 [facility] No Panel InformationOrdered By: Yvon Yang on 06-01-2022 Estimated GFR (MDRD) Amer 106 mL/min >60 [facility] Comment on above: GFR Calc Estimated GFR (MDRD) Non-Af Amer 88 mL/min >60 [facility] Comment on above: Non- GFR Calc Serum or plasma calcium elio urement (mass/volume)Ordered By: vYon Yang on 06-01-2022 Calcium [Mass/Vol] 9.1 mg/dL 8.5-10.1 [facility] Serum or plasma creatinine m easurement (mass/volume)Ordered By: Yvon Yang on 06-01-2022 Creatinine [Mass/Vol] 0.90 mg/dL 0.70-1.30 [facility] [place] [facility] Comment on above: The validity of the calculated GFR & GFRAA in patients over 70 years has not been determined. Clinical correlation is essential. Serum or plasma urea nitroge n measurement (mass/volume)Ordered By: Yvon Yang on 06-01-2022 Urea nitrogen [Mass/Vol] 24 mg/dL 7-18 [facility] Thin prep Papanicolaou smear with manual screeningOrdered By: Yvon Yang on 06-01-2022 Thin prep Papanicolaou smear with manual screening 3 5-15 [facility] No Panel InformationOrdered By: Dr. Santiago on 03-24-2022 Prostate Specific Antigen Total 0.49 ng/mL 0.0-4.0 [facility] Comment on above: This test was perfor med using the TPSA assay method for the[employer] chemistry system. Values obtained with differentassay methods cannot be used interchangably.When changing PSA assays in the course of monitoring apatient, additional sequential testing should be carriedout to confirm baseline values. Basophil percentageOrdered B y: Dr. Hadley on 12-14-2021 Chloride [Moles/Vol] 105 mmol/L 98-107 [facility] Glucose [Mass/Vol] 84 mg/dL 74-106 [facility] Potassium [Moles/Vol] 4.3 mmol/L 3.5-5.1 [facility] [place] [facility] Sodium [Moles/Vol] 138 mmol/L 136-145 [facility] WBC (Bld) [#/Vol] 6.4 10*3/uL 4.4-11.0 [facility] Blood erythrocytes count (nu mber/volume)Ordered By: Dr. Hadley on 12-14-2021 RBC (Bld) [#/Vol] 5.36 10*6/uL 4.6-6.2 [facility] Blood hemoglobin measurement (mass/volume)Ordered By: Dr. Hadley on 12-14-2021 Hemoglobin (Bld) [Mass/Vol] 15.0 g/dL 13.0-16.5 [facility] Blood platelet mean volumeOr dered By: Dr. Hadley on 12-14-2021 Platelet mean volume (Bld) [Entitic vol] 11.3 fL 6.2-12.0 [facility] Determination of erythrocyte mean corpuscular volume (MCV)Ordered By: Dr. Hadley on 12-14-2021 MCV (RBC) [Entitic vol] 84.7 fL 80-94 [facility] Hematocrit Auto (Bld) [Volum e fraction]Ordered By: Dr. Hadley on 12-14-2021 Hematocrit (Bld) [Volume fraction] 45.4 % 40-54 [facility] - Chemistry and C hemistry - challengeOrdered By: Dr. Hadley on 12-14-2021 CO2 [Moles/Vol] 26.0 mmol/L 21.0-32.0 [facility] Urea nitrogen/Creatinine [Mass ratio] 15.3 mg/mg 10-20 [facility] - Hematology and Cell countsOrdered By: Dr. Hadley on 12-14-2021 Erythrocyte distribution width (RBC) [Entitic vol] 43.5 fL 35.1-43.9 [facility] Erythrocyte distribution width (RBC) [Ratio] 14.2 % 11.6-14.6 [facility] MCH (RBC) [Entitic mass] 28.0 pg 27.0-32.0 [facility] MCHC Auto (RBC) [Mass/Vol]Or dered By: Dr. Hadley on 12-14-2021 MCHC (RBC) [Mass/Vol] 33.0 g/dL 32-36 [facility] [place] [facility] No Panel InformationOrdered By: Dr. Hadley on 12-14-2021 Estimated GFR (MDRD) Amer 114 mL/min >60 [facility] Comment on above: GFR Calc Estimated GFR (MDRD) Non-Af Amer 94 mL/min >60 [facility] Comment on above: Non- GFR Calc Platelets bldOrdered By: Dr. Hadley on 12-14-2021 Platelets (Bld) [#/Vol] 199 10*3/uL 150-450 [facility] Serum or plasma calcium elio urement (mass/volume)Ordered By: Dr. Hadley on 12-14-2021 Calcium [Mass/Vol] 9.4 mg/dL 8.5-10.1 [facility] Serum or plasma creatinine m easurement (mass/volume)Ordered By: Dr. Hadley on 12-14-2021 Creatinine [Mass/Vol] 0.85 mg/dL 0.70-1.30 [facility] [place] [facility] Comment on above: The validity of the calculated GFR & GFRAA in patients over 70 years has not been determined. Clinical correlation is essential. Serum or plasma urea nitroge n measurement (mass/volume)Ordered By: Dr. Hadley on 12-14-2021 Urea nitrogen [Mass/Vol] 13 mg/dL -18 [facility] Thin prep Papanicolaou smear with manual screeningOrdered By: Dr. Hadley on 12-14-2021 Thin prep Papanicolaou smear with manual screening 07-19 [facility] LABORATORYOrdered By: Pam Cortes on 09-30-2021 ADMITTED TO INTENSIVE CARE UNIT FOR CONDITION OF INTEREST:FIND:PT:^PATIEN T:ORD: No (09/30/21 12:00 PM) Invalid Interpretation Code AO Auto Urine SS EMPLOYED IN A HEALTHCARE SETTING:FIND:PT:^PATIENT :ORD: No (09/30/21 12:00 PM) Invalid Interpretation Code AO Auto Urine SS FIRST TEST FOR CONDITION OF INTEREST:FIND:PT:^PATIEN T:ORD: No (09/30/21 12:00 PM) Invalid Interpretation Code AO Auto Urine SS HAS SYMPTOMS RELATED TO CONDITION OF INTEREST:FIND:PT:^PATIEN T:ORD: Yes (09/30/21 12:00 PM) Invalid Interpretation Code AO Auto Urine SS Illness or injury onset date and time [id number] Invalid Interpretation Code AO Auto Urine SS Patient was hospitalized because of this condition No (09/30/21 12:00 PM) Invalid Interpretation Code AO Auto Urine SS status Not (09/30/21 12:00 PM) Invalid Interpretation Code AO Auto Urine SS RESIDES IN A CONGREGATE CARE SETTING:FIND:PT:^PATIENT :ORD: No (09/30/21 12:00 PM) Invalid Interpretation Code AO Auto Urine SS SARS-CoV-2 (COVID-19) RNA AYLIN+probe Ql (Unsp spec) Negative results do not preclude SARS-CoV-2 infection and should not be used as the sole basis for patient management decisions. Negative results must be combined with clinical observations, patient history, and epidemiological information.There is a risk of false negative values resulting from improperly collected, transported, or handled specimens.There is a risk of false negative values due to the presence of sequence variants in the pathogen targets of the assay, procedural errors, amplification inhibitors in specimens, or inadequate numbers of organisms for amplification.LRONA SARS-CoV-2 Assay is a Real-Time reverse-transcripta se polymerase chain reaction (RT-PCR) based qualitative in vitro diagnostic test intended for the qualitative detection of nucleic acid from the SARS-CoV-2 in nasopharyngeal swab specimens collected from individuals suspected of COVID-19 by their healthcare provider. Testing is limited to laboratories certified under the Clinical Laboratory Improvement Amendments of 1988 (CLIA), 42 U.S.C. 263a, to perform moderate and high complexity tests. Invalid Interpretation Code AO Auto Urine SS Basophil percentageon 2021 WBC (Bld) [#/Vol] 5.5 10*3/uL 4.4-11.0 [facility]: Blood erythrocytes count (nu mber/volume)on 09-23-2021 RBC (Bld) [#/Vol] 5.03 10*6/uL 4.6-6.2 [facility]: Blood hemoglobin measurement (mass/volume)on 09-23-2021 Hemoglobin (Bld) [Mass/Vol] 13.8 g/dL 13.0-16.5 [facility] Work Phone: Blood platelet mean volumeon 09-23-2021 Platelet mean volume (Bld) [Entitic vol] 11.9 fL 6.2-12.0 [facility] Work Phone: Determination of erythrocyte mean corpuscular volume (MCV)on 09-23-2021 MCV (RBC) [Entitic vol] 85.5 fL 80-94 [facility] Work Phone: Hematocrit Auto (Bld) [Volum e fraction]on 09-23-2021 Hematocrit (Bld) [Volume fraction] 43.0 % 40-54 [facility] Work Phone: Laboratory - Hematology and Cell countson 09-23-2021 Erythrocyte distribution width (RBC) [Entitic vol] 42.5 fL 35.1-43.9 [facility] Work Phone: Erythrocyte distribution width (RBC) [Ratio] 13.7 % 11.6-14.6 [facility] Work Phone: MCH (RBC) [Entitic mass] 27.4 pg 27.0-32.0 [facility] Work Phone: MCHC Auto (RBC) [Mass/Vol]on 09-23-2021 MCHC (RBC) [Mass/Vol] 32.1 g/dL 32-36 [facility] Work Phone: Platelets bldon 09-23-2021 Platelets (Bld) [#/Vol] 186 10*3/uL 150-450 [facility] Work Phone: LABORATORYOrdered By: Mina Lozano on 08-24-2021 Albumin BCP dye [Mass/Vol] 4.2 G/dL Invalid Interpretation Code 3.4 - 4.8 G/dL AO ADM SS Albumin/Globulin [Mass ratio] 1.4 {ratio} Invalid Interpretation Code 1.1 - 2.5 ratio AO ADM SS ALP [Catalytic activity/Vol] 90 U/L Invalid Interpretation Code 40 - 135 U/L AO ADM SS ALT With P-5'-P [Catalytic activity/Vol] 22 U/L Invalid Interpretation Code 16 - 63 U/L AO ADM SS AST With P-5'-P [Catalytic activity/Vol] 18 U/L Invalid Interpretation Code 10 - 40 U/L AO ADM SS Bilirubin [Mass/Vol] 0.5 mg/dL Invalid Interpretation Code 0.2 - 1.0 mg/dL AO ADM SS Calcium [Mass/Vol] 9.2 mg/dL Invalid Interpretation Code 8.4 - 10.2 mg/dL AO ADM SS Chloride [Moles/Vol] 103 mmol/L Invalid Interpretation Code 98 - 107 mmol/L AO ADM SS Cholesterol [Mass/Vol] 131 mg/dL Invalid Interpretation Code 0 - 200 mg/dL AO ADM SS Cholesterol in HDL [Mass/Vol] 43 mg/dL Invalid Interpretation Code 40 - 60 mg/dL AO ADM SS Cholesterol in LDL [Mass/Vol] 66 mg/dL Invalid Interpretation Code 0 - 130 mg/dL AO ADM SS CO2 [Moles/Vol] 28 mmol/L Invalid Interpretation Code 23 - 31 mmol/L AO ADM SS Creatinine [Mass/Vol] 1.19 mg/dL Invalid Interpretation Code 0.70 - 1.30 mg/dL AO ADM SS Electrolyte Balance 10.0 mEq/L Invalid Interpretation Code 4.0 - 15.0 mEq/L AO ADM SS Globulin 3.1 G/dL Invalid Interpretation Code AO ADM SS Glucose [Mass/Vol] 106 mg/dL Invalid Interpretation Code 83 - 110 mg/dL AO ADM SS Potassium [Moles/Vol] 4.4 mmol/L Invalid Interpretation Code 3.5 - 5.1 mmol/L AO ADM SS Protein [Mass/Vol] 7.3 G/dL Invalid Interpretation Code 6.4 - 8.2 G/dL AO ADM SS Sodium [Moles/Vol] 141 mmol/L Invalid Interpretation Code 136 - 145 mmol/L AO ADM SS Triglyceride [Mass/Vol] 110 mg/dL Invalid Interpretation Code 0 - 150 mg/dL AO ADM SS Urea nitrogen [Mass/Vol] 15 mg/dL Invalid Interpretation Code 7 - 18 mg/dL AO ADM SS Urea nitrogen/Creatinine [Mass ratio] 13 ratio Invalid Interpretation Code 7 - 27 ratio AO ADM SS LABORATORYOrdered By: SYSTEM SYSTEM on 08-24-2021 GFR 73 ml/min/1.73sqm Invalid Interpretation Code AO Chemistry S GFR Non- 60 ml/min/1.73sqm Inval id Interpretation Code AO Chemistry S Basophil percentageon 2021 Basophil percentage < 0.9 mg/dL 0.70-1.30 [facility] Work Phone: No Panel Informationon 08-05 Bedside Estimated GFR (eGFR) > 60.0000 mL/min >60 [facility] Work Phone: No Panel Informationon 07-21 Prostate Specific Antigen Total 27.80 ng/mL 0.0-4.0 [facility] Work Phone: Comment on above: This test was perfor med using the TPSA assay method for theM[facility] Community Medical ServicesAYOXXA Biosystems chemistry system. Values obtained with differentassay methods cannot be used interchangably.When changing PSA assays in the course of monitoring apatient, additional sequential testing should be carriedout to confirm baseline values. [facility] Surgical Pathology Depar tmenton 07-03-2020 [facility] Surgical Pathology Department Name RAMIRO LALA Pathologist: LINDY FENG MD Date of Procedure: 07/03/2020 Date Received: 07/04/2020 Date Reported 07/07/2020 Submitting Physician: LAURIE QUINONES DO Location: [facility] Copy To/Referring/Attend ing: AISSATOU TRUJILLO [employer]SM[employer] Other External # FINAL DIAGNOSIS A. DESCENDING COLON, POLYPECTOMIES: --FRAGMENTS OF SESSILE SERRATED ADENOMA. Electronically Signed Out By LINDY FENG MD/YUNIOR By the signature on this report, the individual or group listed as making the Final Interpretation/Diag nosis certifies that they have reviewed this case. Clinical History: {Not Provided} Specimens Submitted As: A: DESCENDING COLON POLYP X2 Gross Description: Received in formalin, labeled with the patient's name and hospital number and descending polyp, are multiple fragments of stevens, soft tissue aggregating to 1.4 x 0.3 x 0.1 cm. The specimen is submitted in toto in one cassette. CJN cjn/07/06/2020 [facility] Department of Pathology [address] [place] [address] Normal [facility] Comment on above: Performed By: #### [facility] #### [facility] Surgical Pathology Department [address] [place] [address] CORONAVIRUS 2019, SCREEN ASY MPTOMATICon 07-02-2020 SARS-CoV-2 (COVID-19) RNA AYLIN+probe Ql (Unsp spec) Not detected Normal Not Detected [facility] Comment on above: Result Comment: . This assay is designed to detect SARS-CoV-2 based on replication of specific regions of the RNA from the SARS-CoV-2 virus. A Not Detected result does not preclude 2019-nCoV infection since the adequacy of sample collection and/or low viral burden may result in presence of viral nucleic acids below the clinical sensitivity of this test method. Fact sheet for providers: https://www.fda.gov/media/625592/download Fact sheet for patients: https://www.fda.gov/media/259401/download This test has received FDA Emergency Use Authorization [EUA] and has been verified by [facility] ([facility]). This test is only authorized for the duration of time that circumstances exist to justify the authorization of the emergency use of in vitro diagnostic tests for the detection of SARS-CoV-2 virus and/or diagnosis of COVID-19 infection under section 564(b)(1) of the Act, 21 U.S.C. 360bbb-3(b)(1), unless the authorization is terminated or revoked sooner. [facility] is certified under CLIA-88 as qualified to perform high complexity testing. Testing is performed in the [facility] laboratories located at [id number] [place] [address]. Performed By: #### C OV[facility] #### [facility] [id number] [place] [address]. [place] [address] Covid 19 Resultson 1 SARS-CoV-2 (COVID-19) RNA AYLNI+probe Ql (Unsp spec) NEGATIVE COVID-19 Test Coronaviruses are common world-wide and are the cause of many common colds. SARS-COV2 is a new coronavirus that began circulating worldwide in 2019 so we are calling it COVID-19. It has been estimated that four out of five patients with COVID-19 will recover at home without the need for medical attention. Symptoms of COVID-19 may include cough, fever, shortness of breath, loss of taste or smell and other flu-like symptoms including chills, sore muscles, sore throat, and headache. Severe illness is more common in older people and people with other health problems such as high blood pressure, obesity, and immune system problems. If the test is positive, you have COVID-19. You will be contacted by the ordering physicians office and instructed to remain on home isolation, in accordance with CDC guidelines. You may also be contacted by the [facility] to see if any of your close contacts may have been exposed to the virus and need to quarantine. If the test is negative, you likely do not have COVID-19 at this time, but you still may have a different illness that can spread to other people (like Influenza, or the Flu) and could still be at risk for getting COVID-19. We recommend that you stay away from other people to limit the spread of illness until your symptoms are improving and you are fever-free for 24 hours without the use of fever lowering medications such as acetaminophen or ibuprofen. No test is 100% accurate so if you are still concerned you may have COVID-19, talk to your doctor about the need to continue to stay away from others. Medicines Unless your provider told you not to use the following: Acetaminophen (Tylenol and others) is generally safe. Anti-inflammatory medications, such as Ibuprofen (Advil or Motrin) or Naproxen (Aleve) can also be used. Kyzo-hyh-pevgejk cough and cold medicines can be used according to the instructions on the package. Some mkit-biq-hxswmxo medicines also contain acetaminophen. Make sure you are not taking more than your recommended dose. For those not hospitalized, there is no specific treatment available for this illness. Antibiotics do not treat Coronaviruses. Follow-Up Follow up with your doctor by scheduling a virtual visit or consider follow-up at one of our urgent care fever clinics. If you are having difficulty breathing, or are very weak and having difficulty standing, this is a medical emergency. Call 911 or have someone take you to the nearest emergency room immediately. If possible, wear a facemask. Additional guidance from the CDC for patients who tested POSITIVE for COVID-19 How to isolate: Isolate yourself in a specific room at home and limit your contact with others. Use a separate bathroom from other members of the household, when possible. Leave home only to get essential medical care. Do not go to work, school or public areas. Avoid using public transportation, ride-sharing, or taxis. Restrict contact with pets and other animals. If you must care for your pet or be around animals while you are sick, wash your hands before and after your interaction and wear a facemask. Make sure that shared spaces in the home have good airflow, such as by an air conditioner or an opened window, weather permitting. Personal Hygiene Procedures: Wear a face mask when in the same room as other people or pets. If a face mask interferes with your breathing, others should wear a mask when sharing space with you. Frequent hand-washing: wash your hands with soap and water for at least 20 seconds. If soap and water are not available, use alcohol-based hand specifications writer. Avoid touching your eyes, nose, and mouth with unwashed hands. Household Hygiene Procedures: Avoid sharing personal household items such as dishes, glassware, cups, eating utensils, towels or bedding with other people or pets in your home. After use, these items should be washed with soap and hot water. Disinfect all high-touch surfaces every day with antibacterial cleaning solutions such as Lysol wipes, bleach, cleansers, etc. High-touch surfaces include tabletops, doorknobs, bathroom fixtures, toilets, phones, keyboards, tablets and bedside tables. Immediately clean any surfaces that may have blood, poop or body fluids on them, using antibacterial cleaning solutions such as Lysol wipes, bleach, cleansers, etc. If clothing or bedding come into contact with blood, poop or body fluids, they should be washed immediately. Follow the directions on the laundry detergent and clothing labels but hot water is recommended when possible. Stopping home isolation precautions: If possible, consult your doctor before stopping home isolation precautions. According to the CDC, you can discontinue home isolation precautions when you have met both of these criteria: Your fever and respiratory symptoms have been gone for 24 sofía (more content not included)... Normal [facility] CORONAVIRUS 2019, SCREEN ASY MPTOMATICon 07-01-2020 Lab Specimen Source Nasal, Nasopharyngeal Normal [facility] Comment on above: Performed By: #### C OVSC #### [facility] [address] [place] [address] Vital Signs Date Time Vital Sign Value Performing Clinician Facility 08-01-2024 06:36-0400 Body height 180.34 cm Aissatou Trujillo NP-C Work Phone: [facility] 08-01-2024 06:36-0400 Body mass index (BMI) [Ratio] 36.8 kg/m2 Aissatou Trujillo NP-C Work Phone: [facility] 08-01-2024 06:36-0400 Body weight 119.74 kg Aissatou Trujillo NP-C Work Phone: [facility] 08-01-2024 06:36-0400 Diastolic blood pressure 74 mm[Hg] Aissatou Trujillo NP-C Work Phone: [facility] 08-01-2024 06:36-0400 Heart rate 61 /min Aissatou Trujillo NP-C Work Phone: [facility] 08-01-2024 06:36-0400 Respiratory rate 18 /min Aissatou Trujillo NP-C Work Phone: [facility] 08-01-2024 06:36-0400 SaO2% (BldA) [Mass fraction] 93 % Aissatou Trujillo FENCE SUPERVISOR-C Work Phone: [facility] 08-01-2024 06:36-0400 Systolic blood pressure 143 mm[Hg] Aissatou Trujillo FENCE SUPERVISOR-C Work Phone: [facility] 07-10-2024 13:01-0400 Body mass index (BMI) [Ratio] 37.9 kg/m2 Aissatou Trujillo FENCE SUPERVISOR-C Work Phone: [facility] 07-10-2024 13:01-0400 Body temperature 97.4 [degF] Aissatou Darin FENCE SUPERVISOR-C Work Phone: [facility] 07-10-2024 13:01-0400 Body weight 123.43 kg Aissatou Darin FENCE SUPERVISOR-C Work Phone: [facility] 07-10-2024 13:01-0400 Diastolic blood pressure 77 mm[Hg] Aissatou Trujillo FENCE SUPERVISOR-C Work Phone: [facility] 07-10-2024 13:01-0400 Heart rate 79 /min Aissatou Trujillo FENCE SUPERVISOR-C Work Phone: [facility] 07-10-2024 13:01-0400 Respiratory rate 18 /min Aissatou Trujillo FENCE SUPERVISOR-C Work Phone: [facility] 07-10-2024 13:01-0400 SaO2% (BldA) [Mass fraction] 93 % Aissatou Trujillo FENCE SUPERVISOR-C Work Phone: [facility] 07-10-2024 13:01-0400 Systolic blood pressure 134 mm[Hg] Aissatou Trujillo FENCE SUPERVISOR-C Work Phone: [facility] 07-10-2024 12:58-0400 Body mass index (BMI) [Ratio] 37.9 kg/m2 Aissatou Trujillo FENCE SUPERVISOR-C Work Phone: [facility] 07-10-2024 12:58-0400 Body weight 123.37 kg Aissatou Trujillo FENCE SUPERVISOR-C Work Phone: [facility] 07-10-2024 12:58-0400 Diastolic blood pressure 72 mm[Hg] Aissatou Trujillo FENCE SUPERVISOR-C Work Phone: [facility] 07-10-2024 12:58-0400 Heart rate 85 /min Aissatou Trujillo FENCE SUPERVISOR-C Work Phone: [facility] 07-10-2024 12:58-0400 Respiratory rate 18 /min Aissatou Trujillo FENCE SUPERVISOR-C Work Phone: [facility] 07-10-2024 12:58-0400 SaO2% (BldA) [Mass fraction] 92 % Aissatou Trujillo FENCE SUPERVISOR-C Work Phone: [facility] 07-10-2024 12:58-0400 Systolic blood pressure 176 mm[Hg] Aissatou Trujillo FENCE SUPERVISOR-C Work Phone: [facility] 06-21-2024 12:07-0400 Body temperature 97.7 [degF] Aissatou Trujillo FENCE SUPERVISOR-C Work Phone: [facility] 06-21-2024 12:07-0400 Diastolic blood pressure 80 mm[Hg] Aissatou Trujillo FENCE SUPERVISOR-C Work Phone: [facility] 06-21-2024 12:07-0400 Heart rate 53 /min Aissatou Trujillo FENCE SUPERVISOR-C Work Phone: [facility] 06-21-2024 12:07-0400 Respiratory rate 20 /min Aissatou Trujillo FENCE SUPERVISOR-C Work Phone: [facility] 06-21-2024 12:07-0400 SaO2% (BldA) [Mass fraction] 98 % Aissatou Trujillo FENCE SUPERVISOR-C Work Phone: [facility] 06-21-2024 12:07-0400 Systolic blood pressure 120 mm[Hg] Aissatou Trujillo FENCE SUPERVISOR-C Work Phone: [facility] 06-21-2024 11:39-0400 Inhaled oxygen flow rate 2 L/min Aissatou Trujillo FENCE SUPERVISOR-C Work Phone: [facility] 06-21-2024 09:26-0400 Body height 180.34 cm Aissatou Trujillo FENCE SUPERVISOR-C Work Phone: [facility] 06-21-2024 09:26-0400 Body mass index (BMI) [Ratio] 38.4 kg/m2 Aissatou Trujillo FENCE SUPERVISOR-C Work Phone: [facility] 06-21-2024 09:26-0400 Body weight 124.9 kg Aissatou Trujillo FENCE SUPERVISOR-C Work Phone: [facility] 05-25-2024 07:40-0400 Body mass index (BMI) [Ratio] 36.6 kg/m2 Aissatou Trujillo FENCE SUPERVISOR-C Work Phone: [facility] 05-25-2024 07:40-0400 Body weight 122.46 kg Aissatou Trujillo FENCE SUPERVISOR-C Work Phone: [facility] 05-25-2024 07:40-0400 Diastolic blood pressure 56 mm[Hg] Aissatou Trujillo FENCE SUPERVISOR-C Work Phone: [facility] 05-25-2024 07:40-0400 Heart rate 53 /min Aissatou Trujillo FENCE SUPERVISOR-C Work Phone: [facility] 05-25-2024 07:40-0400 Respiratory rate 20 /min Aissatou Trujillo FENCE SUPERVISOR-C Work Phone: [facility] 05-25-2024 07:40-0400 SaO2% (BldA) [Mass fraction] 95 % Aissatou Trujillo FENCE SUPERVISOR-C Work Phone: [facility] 05-25-2024 07:40-0400 Systolic blood pressure 118 mm[Hg] Aissatou Trujillo FENCE SUPERVISOR-C Work Phone: [facility] 11-29-2023 08:44-0400 Body height 182.9 cm Maurice Fulton MD Work Phone: [facility] 11-29-2023 08:44-0400 Body mass index (BMI) [Ratio] 36.75 kg/m2 Maurice Fulton MD Work Phone: [facility] 11-29-2023 08:44-0400 Body weight 122.92 kg Maurice Fulton MD Work Phone: [facility] 11-29-2023 08:44-0400 Diastolic blood pressure 60 mm[Hg] Maurice Fulton MD Work Phone: [facility] 11-29-2023 08:44-0400 Heart rate 61 /min Maurice Fulton MD Work Phone: [facility] 11-29-2023 08:44-0400 SaO2% (BldA) [Mass fraction] 94 % Maurice Fulton MD Work Phone: [facility] 11-29-2023 08:44-0400 Systolic blood pressure 116 mm[Hg] Maurice Fulton MD Work Phone: [facility] 07-11-2023 10:20-0400 Body height 182.88 cm FENCE SUPERVISOR-C Aissatou Trujillo FENCE SUPERVISOR Work Phone: [facility] 07-11-2023 10:20-0400 Body mass index (BMI) [Ratio] 36.3 kg/m2 FENCE SUPERVISOR-C Aissatou Trujillo FENCE SUPERVISOR Work Phone: [facility] 07-11-2023 10:20-0400 Body temperature 98.1 [degF] FENCE SUPERVISOR-C Aissatou Trujillo FENCE SUPERVISOR Work Phone: [facility] 07-11-2023 10:20-0400 Body weight 121.73 kg FENCE SUPERVISOR-C Aissatou Trujillo FENCE SUPERVISOR Work Phone: [facility] 07-11-2023 10:20-0400 Diastolic blood pressure 70 mm[Hg] FENCE SUPERVISOR-C Aissatou Trujillo FENCE SUPERVISOR Work Phone: [facility] 07-11-2023 10:20-0400 Heart rate 57 /min FENCE SUPERVISOR-C Aissatou Trujillo FENCE SUPERVISOR Work Phone: [facility] 07-11-2023 10:20-0400 Respiratory rate 18 /min FENCE SUPERVISOR-C Aissatou Trujillo FENCE SUPERVISOR Work Phone: [facility] 07-11-2023 10:20-0400 SaO2% (BldA) [Mass fraction] 93 % FENCE SUPERVISOR-C Aissatou Trujillo FENCE SUPERVISOR Work Phone: [facility] 07-11-2023 10:20-0400 Systolic blood pressure 122 mm[Hg] FENCE SUPERVISOR-C Aissatou Trujillo FENCE SUPERVISOR Work Phone: [facility] 03-03-2023 14:20-0500 Heart rate 94 /min FENCE SUPERVISOR-C Aissatou Trujillo FENCE SUPERVISOR Work Phone: [facility] 03-03-2023 14:20-0500 Respiratory rate 16 /min FENCE SUPERVISOR-C Aissatou Trujillo FENCE SUPERVISOR Work Phone: [facility] 03-03-2023 14:00-0500 Diastolic blood pressure 74 mm[Hg] FENCE SUPERVISOR-C Aissatou Trujillo FENCE SUPERVISOR Work Phone: [facility] 03-03-2023 14:00-0500 SaO2% (BldA) [Mass fraction] 95 % FENCE SUPERVISOR-C Aissatou Trujillo FENCE SUPERVISOR Work Phone: [facility] 03-03-2023 14:00-0500 Systolic blood pressure 141 mm[Hg] FENCE SUPERVISOR-C Aissatou Trujillo FENCE SUPERVISOR Work Phone: [facility] 03-03-2023 10:20-0500 Body height 182.88 cm FENCE SUPERVISOR-C Aissatou Trujillo FENCE SUPERVISOR Work Phone: [facility] 03-03-2023 10:20-0500 Body mass index (BMI) [Ratio] 35.4 kg/m2 FENCE SUPERVISOR-C Aissatou Trujillo FENCE SUPERVISOR Work Phone: [facility] 03-03-2023 10:20-0500 Body temperature 98.3 [degF] FENCE SUPERVISOR-C Aissatou Trujillo FENCE SUPERVISOR Work Phone: [facility] 03-03-2023 10:20-0500 Body weight 118.6 kg FENCE SUPERVISOR-C Aissatou Trujillo FENCE SUPERVISOR Work Phone: [facility] 02-24-2023 10:15-0500 Body mass index (BMI) [Ratio] 35.3 kg/m2 FENCE SUPERVISOR-C Aissatou Trujillo FENCE SUPERVISOR Work Phone: [facility] 02-24-2023 10:15-0500 Body temperature 97.7 [degF] FENCE SUPERVISOR-C Aissatou Trujillo FENCE SUPERVISOR Work Phone: [facility] 02-24-2023 10:15-0500 Body weight 118.16 kg FENCE SUPERVISOR-C Aissatou Trujillo FENCE SUPERVISOR Work Phone: [facility] 02-24-2023 10:15-0500 Diastolic blood pressure 69 mm[Hg] FENCE SUPERVISOR-C Aissatou Trujillo FENCE SUPERVISOR Work Phone: [facility] 02-24-2023 10:15-0500 Heart rate 66 /min FENCE SUPERVISOR-C Aissatou Trujillo FENCE SUPERVISOR Work Phone: [facility] 02-24-2023 10:15-0500 Respiratory rate 16 /min FENCE SUPERVISOR-C Aissatou Trujillo FENCE SUPERVISOR Work Phone: [facility] 02-24-2023 10:15-0500 SaO2% (BldA) [Mass fraction] 93 % FENCE SUPERVISOR-C Aissatou Trujillo FENCE SUPERVISOR Work Phone: [facility] 02-24-2023 10:15-0500 Systolic blood pressure 106 mm[Hg] FENCE SUPERVISOR-C Aissatou Trujillo FENCE SUPERVISOR Work Phone: [facility] 01-18-2023 09:30-0500 Body temperature 97.4 [degF] FENCE SUPERVISOR-C Aissatou Trujillo FENCE SUPERVISOR Work Phone: [facility] 01-18-2023 09:30-0500 Diastolic blood pressure 69 mm[Hg] FENCE SUPERVISOR-C Aissatou Trujillo FENCE SUPERVISOR Work Phone: [facility] 01-18-2023 09:30-0500 Heart rate 71 /min FENCE SUPERVISOR-C Aissatou Trujillo FENCE SUPERVISOR Work Phone: [facility] 01-18-2023 09:30-0500 Respiratory rate 16 /min FENCE SUPERVISOR-C Aissatou Trujillo FENCE SUPERVISOR Work Phone: [facility] 01-18-2023 09:30-0500 SaO2% (BldA) [Mass fraction] 98 % FENCE SUPERVISOR-C Aissatou Trujillo FENCE SUPERVISOR Work Phone: [facility] 01-18-2023 09:30-0500 Systolic blood pressure 115 mm[Hg] FENCE SUPERVISOR-C Aissatou Trujillo FENCE SUPERVISOR Work Phone: [facility] 01-18-2023 06:23-0500 Body mass index (BMI) [Ratio] 35.3 kg/m2 FENCE SUPERVISOR-C Aissatou Trujillo FENCE SUPERVISOR Work Phone: [facility] 01-18-2023 06:23-0500 Body weight 118.1 kg FENCE SUPERVISOR-C Aissatou Trujillo FENCE SUPERVISOR Work Phone: [facility] 11-18-2022 08:22-0400 Body height 182.88 cm FENCE SUPERVISOR-C Aissatou Trujillo FENCE SUPERVISOR Work Phone: [facility] 11-18-2022 08:22-0400 Body mass index (BMI) [Ratio] 34.9 kg/m2 FENCE SUPERVISOR-C Aissatou Trujillo FENCE SUPERVISOR Work Phone: [facility] 11-18-2022 08:22-0400 Body weight 117.02 kg FENCE SUPERVISOR-C Aissatou Trujillo FENCE SUPERVISOR Work Phone: [facility] 11-18-2022 08:22-0400 Diastolic blood pressure 80 mm[Hg] FENCE SUPERVISOR-C Aissatou Trujillo FENCE SUPERVISOR Work Phone: [facility] 11-18-2022 08:22-0400 Heart rate 65 /min FENCE SUPERVISOR-C Aissatou Trujillo FENCE SUPERVISOR Work Phone: [facility] [facility] 11-18-2022 08:22-0400 Respiratory rate 18 /min FENCE SUPERVISOR-C Aissatou Trujillo FENCE SUPERVISOR Work Phone: [facility] 11-18-2022 08:22-0400 Systolic blood pressure 134 mm[Hg] FENCE SUPERVISOR-C Aissatou Trujillo FENCE SUPERVISOR Work Phone: [facility] 08-26-2022 13:43-0400 Body height 182.88 cm FENCE SUPERVISOR-C Aissatou Trujillo FENCE SUPERVISOR Work Phone: [facility] 08-26-2022 13:43-0400 Body mass index (BMI) [Ratio] 34.4 kg/m2 FENCE SUPERVISOR-C Aissatou Trujillo FENCE SUPERVISOR Work Phone: [facility] 08-26-2022 13:43-0400 Body temperature 97.5 [degF] FENCE SUPERVISOR-C Aissatou Trujillo FENCE SUPERVISOR Work Phone: [facility] 08-26-2022 13:43-0400 Body weight 114.98 kg FENCE SUPERVISOR-C Aissatou Trujillo FENCE SUPERVISOR Work Phone: [facility] 08-26-2022 13:43-0400 Diastolic blood pressure 64 mm[Hg] FENCE SUPERVISOR-C Aissatou Trujillo FENCE SUPERVISOR Work Phone: [facility] 08-26-2022 13:43-0400 Heart rate 94 /min FENCE SUPERVISOR-C Aissatou Trujillo FENCE SUPERVISOR Work Phone: [facility] 08-26-2022 13:43-0400 Respiratory rate 16 /min FENCE SUPERVISOR-C Aissatou Trujillo FENCE SUPERVISOR Work Phone: [facility] 08-26-2022 13:43-0400 SaO2% (BldA) [Mass fraction] 94 % FENCE SUPERVISOR-C Aissatou Trujillo FENCE SUPERVISOR Work Phone: [facility] 08-26-2022 13:43-0400 Systolic blood pressure 100 mm[Hg] FENCE SUPERVISOR-C Aissatou Trujillo FENCE SUPERVISOR Work Phone: [facility] 07-14-2022 10:25-0400 Body height 182.88 cm FENCE SUPERVISOR-C Aissatou Trujillo FENCE SUPERVISOR Work Phone: [facility] 07-14-2022 10:23-0400 Body mass index (BMI) [Ratio] 33.7 kg/m2 FENCE SUPERVISOR-C Aissatou Trujillo FENCE SUPERVISOR Work Phone: [facility] 07-14-2022 10:23-0400 Body temperature 97.1 [degF] FENCE SUPERVISOR-C Aissatou Trujillo FENCE SUPERVISOR Work Phone: [facility] 07-14-2022 10:23-0400 Body weight 113 kg FENCE SUPERVISOR-C Aissatou Trujillo FENCE SUPERVISOR Work Phone: [facility] 07-14-2022 10:23-0400 Diastolic blood pressure 75 mm[Hg] FENCE SUPERVISOR-C Aissatou Trujillo FENCE SUPERVISOR Work Phone: [facility] 07-14-2022 10:23-0400 Heart rate 58 /min FENCE SUPERVISOR-C Aissatou Trujillo FENCE SUPERVISOR Work Phone: [facility] 07-14-2022 10:23-0400 Respiratory rate 18 /min FENCE SUPERVISOR-C Aissatou Trujillo FENCE SUPERVISOR Work Phone: [facility] 07-14-2022 10:23-0400 SaO2% (BldA) [Mass fraction] 97 % FENCE SUPERVISOR-C Aissatou Trujillo FENCE SUPERVISOR Work Phone: [facility] 07-14-2022 10:23-0400 Systolic blood pressure 136 mm[Hg] FENCE SUPERVISOR-C Aissatou Trujillo FENCE SUPERVISOR Work Phone: [facility] 07-07-2022 10:39-0400 Body mass index (BMI) [Ratio] 34.2 kg/m2 FENCE SUPERVISOR-C Aissatou Trujillo FENCE SUPERVISOR Work Phone: [facility] 07-07-2022 10:39-0400 Body temperature 97.5 [degF] FENCE SUPERVISOR-C Aissatou Trujillo FENCE SUPERVISOR Work Phone: [facility] 07-07-2022 10:39-0400 Body weight 114.44 kg FENCE SUPERVISOR-C Aissatou Trujillo FENCE SUPERVISOR Work Phone: [facility] 07-07-2022 10:39-0400 Diastolic blood pressure 73 mm[Hg] FENCE SUPERVISOR-C Aissatou Trujillo FENCE SUPERVISOR Work Phone: [facility] 07-07-2022 10:39-0400 Heart rate 61 /min FENCE SUPERVISOR-C Aissatou Trujillo FENCE SUPERVISOR Work Phone: [facility] 07-07-2022 10:39-0400 Respiratory rate 18 /min FENCE SUPERVISOR-C Aissatou Trujillo FENCE SUPERVISOR Work Phone: [facility] 07-07-2022 10:39-0400 SaO2% (BldA) [Mass fraction] 95 % FENCE SUPERVISOR-C Aissatou Trujillo FENCE SUPERVISOR Work Phone: [facility] 07-07-2022 10:39-0400 Systolic blood pressure 120 mm[Hg] FENCE SUPERVISOR-C Aissatou Trujillo FENCE SUPERVISOR Work Phone: [facility] 06-30-2022 10:42-0400 Body mass index (BMI) [Ratio] 33.9 kg/m2 FENCE SUPERVISOR-C Aissatou Trujillo FENCE SUPERVISOR Work Phone: [facility] 06-30-2022 10:42-0400 Body temperature 97.4 [degF] FENCE SUPERVISOR-C Aissatou Trujillo FENCE SUPERVISOR Work Phone: [facility] 06-30-2022 10:42-0400 Body weight 113.51 kg FENCE SUPERVISOR-C Aissatou Trujillo FENCE SUPERVISOR Work Phone: [facility] 06-30-2022 10:42-0400 Diastolic blood pressure 71 mm[Hg] FENCE SUPERVISOR-C Aissatou Trujillo FENCE SUPERVISOR Work Phone: [facility] 06-30-2022 10:42-0400 Heart rate 57 /min FENCE SUPERVISOR-C Aissatou Trujillo FENCE SUPERVISOR Work Phone: [facility] 06-30-2022 10:42-0400 Respiratory rate 18 /min FENCE SUPERVISOR-C Aissatou Trujillo FENCE SUPERVISOR Work Phone: [facility] 06-30-2022 10:42-0400 SaO2% (BldA) [Mass fraction] 93 % FENCE SUPERVISOR-C Aissatou Trujillo FENCE SUPERVISOR Work Phone: [facility] 06-30-2022 10:42-0400 Systolic blood pressure 112 mm[Hg] FENCE SUPERVISOR-C Aissatou Trujillo FENCE SUPERVISOR Work Phone: [facility] 06-23-2022 11:03-0400 Body mass index (BMI) [Ratio] 34 kg/m2 FENCE SUPERVISOR-C Aissatou Trujillo FENCE SUPERVISOR Work Phone: [facility] 06-23-2022 11:03-0400 Body temperature 97.5 [degF] FENCE SUPERVISOR-C Aissatou Trujillo FENCE SUPERVISOR Work Phone: [facility] 06-23-2022 11:03-0400 Body weight 113.96 kg FENCE SUPERVISOR-C Aissatou Trujillo FENCE SUPERVISOR Work Phone: [facility] 06-23-2022 11:03-0400 Diastolic blood pressure 73 mm[Hg] FENCE SUPERVISOR-C Aissatou Trujillo FENCE SUPERVISOR Work Phone: [facility] 06-23-2022 11:03-0400 Heart rate 54 /min FENCE SUPERVISOR-C Aissatou Trujillo FENCE SUPERVISOR Work Phone: [facility] 06-23-2022 11:03-0400 Respiratory rate 16 /min FENCE SUPERVISOR-C Aissatou Trujillo FENCE SUPERVISOR Work Phone: [facility] 06-23-2022 11:03-0400 SaO2% (BldA) [Mass fraction] 94 % FENCE SUPERVISOR-C Aissatou Trujillo FENCE SUPERVISOR Work Phone: [facility] 06-23-2022 11:03-0400 Systolic blood pressure 135 mm[Hg] FENCE SUPERVISOR-C Aissatou Trujillo FENCE SUPERVISOR Work Phone: [facility] 06-16-2022 10:46-0400 Body mass index (BMI) [Ratio] 33.5 kg/m2 FENCE SUPERVISOR-C Aissatou Trujillo FENCE SUPERVISOR Work Phone: [facility] 06-16-2022 10:46-0400 Body temperature 97.4 [degF] FENCE SUPERVISOR-C Aissatou Trujillo FENCE SUPERVISOR Work Phone: [facility] 06-16-2022 10:46-0400 Body weight 112.26 kg FENCE SUPERVISOR-C Aissatou Trujillo FENCE SUPERVISOR Work Phone: [facility] 06-16-2022 10:46-0400 Diastolic blood pressure 83 mm[Hg] FENCE SUPERVISOR-C Aissatou Trujillo FENCE SUPERVISOR Work Phone: [facility] 06-16-2022 10:46-0400 Heart rate 55 /min FENCE SUPERVISOR-C Aissatou Trujillo FENCE SUPERVISOR Work Phone: [facility] 06-16-2022 10:46-0400 Respiratory rate 16 /min FENCE SUPERVISOR-C Aissatou Trujillo FENCE SUPERVISOR Work Phone: [facility] 06-16-2022 10:46-0400 SaO2% (BldA) [Mass fraction] 95 % FENCE SUPERVISOR-C Aissatou Trujillo FENCE SUPERVISOR Work Phone: [facility] 06-16-2022 10:46-0400 Systolic blood pressure 146 mm[Hg] FENCE SUPERVISOR-C Aissatou Trujillo FENCE SUPERVISOR Work Phone: [facility] 06-09-2022 10:52-0400 Body mass index (BMI) [Ratio] 33.7 kg/m2 FENCE SUPERVISOR-C Aissatou Trujillo FENCE SUPERVISOR Work Phone: [facility] 06-09-2022 10:52-0400 Body temperature 97.1 [degF] FENCE SUPERVISOR-C Aissatou Trujillo FENCE SUPERVISOR Work Phone: [facility] 06-09-2022 10:52-0400 Body weight 113.05 kg FENCE SUPERVISOR-C Aissatou Trujillo FENCE SUPERVISOR Work Phone: [facility] 06-09-2022 10:52-0400 Diastolic blood pressure 71 mm[Hg] FENCE SUPERVISOR-C Aissatou Trujillo FENCE SUPERVISOR Work Phone: [facility] 06-09-2022 10:52-0400 Heart rate 58 /min FENCE SUPERVISOR-C Aissatou Trujillo FENCE SUPERVISOR Work Phone: [facility] 06-09-2022 10:52-0400 Respiratory rate 16 /min FENCE SUPERVISOR-C Aissatou Trujillo FENCE SUPERVISOR Work Phone: [facility] 06-09-2022 10:52-0400 SaO2% (BldA) [Mass fraction] 94 % FENCE SUPERVISOR-C Aissatou Trujillo FENCE SUPERVISOR Work Phone: [facility] 06-09-2022 10:52-0400 Systolic blood pressure 143 mm[Hg] FENCE SUPERVISOR-C Aissatou Trujillo FENCE SUPERVISOR Work Phone: [facility] 06-02-2022 11:17-0400 Body height 182.88 cm FENCE SUPERVISOR-C Aissatou Darin FENCE SUPERVISOR Work Phone: [facility] 06-02-2022 11:15-0400 Body mass index (BMI) [Ratio] 34.2 kg/m2 FENCE SUPERVISOR-C Aissatou Darin FENCE SUPERVISOR Work Phone: [facility] 06-02-2022 11:15-0400 Body temperature 97.5 [degF] FENCE SUPERVISOR-C Aissatou Trujillo FENCE SUPERVISOR Work Phone: [facility] 06-02-2022 11:15-0400 Body weight 114.44 kg FENCE SUPERVISOR-C Aissatou Trujillo FENCE SUPERVISOR Work Phone: [facility] 06-02-2022 11:15-0400 Diastolic blood pressure 76 mm[Hg] FENCE SUPERVISOR-C Aissatou Trujillo FENCE SUPERVISOR Work Phone: [facility] 06-02-2022 11:15-0400 Heart rate 57 /min FENCE SUPERVISOR-C Aissatou Trujillo FENCE SUPERVISOR Work Phone: [facility] 06-02-2022 11:15-0400 Respiratory rate 16 /min FENCE SUPERVISOR-C Aissatou Trujillo FENCE SUPERVISOR Work Phone: [facility] 06-02-2022 11:15-0400 SaO2% (BldA) [Mass fraction] 96 % FENCE SUPERVISOR-C Aissatou Trujillo FENCE SUPERVISOR Work Phone: [facility] 06-02-2022 11:15-0400 Systolic blood pressure 155 mm[Hg] FENCE SUPERVISOR-C Aissatou Trujillo FENCE SUPERVISOR Work Phone: [facility] 05-19-2022 09:22-0400 Diastolic Blood Pressure Non-Invasive 78 1 LAURIE STACIE DO [facility] 05-19-2022 09:22-0400 Heart rate 65 /min LAURIE STACIE DO [facility] 05-19-2022 09:22-0400 Respiratory rate 15 /min LAURIE STACIE DO [facility] 05-19-2022 09:22-0400 Systolic Blood Pressure Non-Invasive 144 1 LAURIE STACIE DO [facility] 05-19-2022 09:15-0400 Diastolic Blood Pressure Non-Invasive 80 1 LAURIE STACIE DO [facility] 05-19-2022 09:15-0400 Heart rate 71 /min LAURIE STACIE DO [facility] 05-19-2022 09:15-0400 Respiratory rate 15 /min LAURIE STACIE DO [facility] 05-19-2022 09:15-0400 Systolic Blood Pressure Non-Invasive 127 1 LAURIE STACIE DO [facility] 05-19-2022 09:04-0400 Body temperature 96.8 [degF] LAURIE STACIE DO [facility] 05-19-2022 09:04-0400 Diastolic Blood Pressure Non-Invasive 74 1 LAURIE STACIE DO [facility] 05-19-2022 09:04-0400 Heart rate 67 /min LAURIE STACIE DO [facility] 05-19-2022 09:04-0400 Respiratory rate 15 /min LAURIE STACIE DO [facility] 05-19-2022 09:04-0400 Systolic Blood Pressure Non-Invasive 112 1 LAURIE STACIE DO [facility] 05-19-2022 08:55-0400 Respiratory Rate - Anes 14 br/min LAURIE STACIE DO [facility] 05-19-2022 08:50-0400 Respiratory Rate - Anes 17 br/min LAURIE STACIE DO [facility] 05-19-2022 08:43-0400 Body temperature 97.52 [degF] LAURIE STACIE DO [facility] 05-19-2022 08:43-0400 Heart rate 74 /min LAURIE STACIE DO [facility] 05-19-2022 08:38-0400 Body height 183.5 cm LAURIE STACIE DO [facility] 05-19-2022 08:38-0400 Body weight 115.9 kg LAURIE STACIE DO [facility] 05-19-2022 08:38-0400 Body weight 34.42 kg/m2 LAURIE STACIE DO [facility] 05-18-2022 08:27-0400 Body mass index (BMI) [Ratio] 34.2 kg/m2 FENCE SUPERVISOR-C Aissatou Trujillo FENCE SUPERVISOR Work Phone: [facility] 05-18-2022 08:27-0400 Body weight 114.3 kg FENCE SUPERVISOR-C Aissatou Trujillo FENCE SUPERVISOR Work Phone: [facility] 05-18-2022 08:27-0400 Diastolic blood pressure 79 mm[Hg] FENCE SUPERVISOR-C Aissatou Trujillo FENCE SUPERVISOR Work Phone: [facility] 05-18-2022 08:27-0400 Heart rate 52 /min FENCE SUPERVISOR-C Aissatou Trujillo FENCE SUPERVISOR Work Phone: [facility] 05-18-2022 08:27-0400 Respiratory rate 18 /min FENCE SUPERVISOR-C Aissatou Trujillo FENCE SUPERVISOR Work Phone: [facility] 05-18-2022 08:27-0400 SaO2% (BldA) [Mass fraction] 94 % FENCE SUPERVISOR-C Aissatou Trujillo FENCE SUPERVISOR Work Phone: [facility] 05-18-2022 08:27-0400 Systolic blood pressure 140 mm[Hg] FENCE SUPERVISOR-C Aissatou Trujillo FENCE SUPERVISOR Work Phone: [facility] 04-22-2022 13:23-0500 Body mass index (BMI) [Ratio] 34.1 kg/m2 FENCE SUPERVISOR-C Aissatou Trujillo FENCE SUPERVISOR Work Phone: [facility] 04-22-2022 13:23-0500 Body temperature 96.5 [degF] FENCE SUPERVISOR-C Aissatou Trujillo FENCE SUPERVISOR Work Phone: [facility] 04-22-2022 13:23-0500 Body weight 114.07 kg FENCE SUPERVISOR-C Aissatou Trujillo FENCE SUPERVISOR Work Phone: [facility] 04-22-2022 13:23-0500 Diastolic blood pressure 71 mm[Hg] FENCE SUPERVISOR-C Aissatou Trujillo FENCE SUPERVISOR Work Phone: [facility] 04-22-2022 13:23-0500 Heart rate 77 /min FENCE SUPERVISOR-C Aissatou Trujillo FENCE SUPERVISOR Work Phone: [facility] 04-22-2022 13:23-0500 Respiratory rate 16 /min FENCE SUPERVISOR-C Aissatou Trujillo FENCE SUPERVISOR Work Phone: [facility] 04-22-2022 13:23-0500 SaO2% (BldA) [Mass fraction] 94 % FENCE SUPERVISOR-C Aissatou Trujillo FENCE SUPERVISOR Work Phone: [facility] 04-22-2022 13:23-0500 Systolic blood pressure 147 mm[Hg] FENCE SUPERVISOR-C Aissatou Trujillo FENCE SUPERVISOR Work Phone: [facility] 04-08-2022 09:38-0500 Body mass index (BMI) [Ratio] 34.3 kg/m2 FENCE SUPERVISOR-C Aissatou Trujillo FENCE SUPERVISOR Work Phone: [facility] 04-08-2022 09:38-0500 Body temperature 97.1 [degF] FENCE SUPERVISOR-C Aissatou Trujillo FENCE SUPERVISOR Work Phone: [facility] 04-08-2022 09:38-0500 Body weight 114.87 kg FENCE SUPERVISOR-C Aissatou Trujillo FENCE SUPERVISOR Work Phone: [facility] 04-08-2022 09:38-0500 Diastolic blood pressure 67 mm[Hg] FENCE SUPERVISOR-C Aissatou Trujillo FENCE SUPERVISOR Work Phone: [facility] 04-08-2022 09:38-0500 Heart rate 53 /min FENCE SUPERVISOR-C Aissatou Trujillo FENCE SUPERVISOR Work Phone: [facility] 04-08-2022 09:38-0500 Respiratory rate 16 /min FENCE SUPERVISOR-C Aissatou Trujillo FENCE SUPERVISOR Work Phone: [facility] 04-08-2022 09:38-0500 SaO2% (BldA) [Mass fraction] 96 % FENCE SUPERVISOR-C Aissatou Trujillo FENCE SUPERVISOR Work Phone: [facility] 04-08-2022 09:38-0500 Systolic blood pressure 117 mm[Hg] FENCE SUPERVISOR-C Aissatou Trujillo FENCE SUPERVISOR Work Phone: [facility] 12-20-2021 10:59-0400 Body temperature 98.5 [degF] FENCE SUPERVISOR-C Aissatou Trujillo FENCE SUPERVISOR Work Phone: [facility] 12-20-2021 10:59-0400 Diastolic blood pressure 80 mm[Hg] FENCE SUPERVISOR-C Aissatou Trujillo FENCE SUPERVISOR Work Phone: [facility] 12-20-2021 10:59-0400 Heart rate 62 /min FENCE SUPERVISOR-C Aissatou Hoganson FENCE SUPERVISOR Work Phone: [facility] 12-20-2021 10:59-0400 Respiratory rate 18 /min FENCE SUPERVISOR-C Aissatou Hoganson FENCE SUPERVISOR Work Phone: [facility] 12-20-2021 10:59-0400 SaO2% (BldA) [Mass fraction] 96 % FENCE SUPERVISOR-C Aissatou Hoganson FENCE SUPERVISOR Work Phone: [facility] 12-20-2021 10:59-0400 Systolic blood pressure 150 mm[Hg] FENCE SUPERVISOR-C Aissatou Trujillo FENCE SUPERVISOR Work Phone: [facility] 12-19-2021 16:40-0400 Inhaled oxygen flow rate 4 L/min FENCE SUPERVISOR-C Aissatou Trujillo FENCE SUPERVISOR Work Phone: [facility] 12-18-2021 16:13-0400 Body height 182.88 cm FENCE SUPERVISOR-C Aissatou Trujillo FENCE SUPERVISOR Work Phone: [facility] 12-18-2021 16:13-0400 Body mass index (BMI) [Ratio] 35 kg/m2 FENCE SUPERVISOR-C Aissatou Trujillo FENCE SUPERVISOR Work Phone: [facility] 12-18-2021 16:13-0400 Body weight 117.16 kg FENCE SUPERVISOR-C Aissatou Trujillo FENCE SUPERVISOR Work Phone: [facility] 11-10-2021 09:28-0400 Body height 182.88 cm FENCE SUPERVISOR-C Aissatou Trujillo FENCE SUPERVISOR Work Phone: [facility] Work Phone: 11-10-2021 09:28-0400 Body mass index (BMI) [Ratio] 33.3 kg/m2 FENCE SUPERVISOR-C Aissatou Trujillo FENCE SUPERVISOR Work Phone: [facility] Work Phone: 11-10-2021 09:28-0400 Body weight 111.58 kg FENCE SUPERVISOR-C Aissatou Trujillo FENCE SUPERVISOR Work Phone: [facility] Work Phone: 11-10-2021 09:28-0400 Diastolic blood pressure 62 mm[Hg] FENCE SUPERVISOR-C Aissatou Trujillo FENCE SUPERVISOR Work Phone: [facility] Work Phone: 11-10-2021 09:28-0400 Heart rate 55 /min FENCE SUPERVISOR-C Aissatou Trujillo FENCE SUPERVISOR Work Phone: [facility] Work Phone: 11-10-2021 09:28-0400 Respiratory rate 18 /min FENCE SUPERVISOR-C Aissatou Trujillo FENCE SUPERVISOR Work Phone: [facility] Work Phone: 11-10-2021 09:28-0400 Systolic blood pressure 122 mm[Hg] FENCE SUPERVISOR-C Aissatou Trujillo FENCE SUPERVISOR Work Phone: [facility] Work Phone: 09-28-2021 13:19-0400 Body height 182.88 cm FENCE SUPERVISOR-C Aissatou Trujillo FENCE SUPERVISOR Work Phone: [facility] Work Phone: 09-28-2021 13:19-0400 Body mass index (BMI) [Ratio] 32.9 kg/m2 FENCE SUPERVISOR-C Aissatou Trujillo FENCE SUPERVISOR Work Phone: [facility] Work Phone: 09-28-2021 13:19-0400 Body weight 110.22 kg FENCE SUPERVISOR-C Aissatou Trujillo FENCE SUPERVISOR Work Phone: [facility] Work Phone: 09-28-2021 13:19-0400 Diastolic blood pressure 60 mm[Hg] FENCE SUPERVISOR-C Aissatou Trujillo FENCE SUPERVISOR Work Phone: [facility] Work Phone: 09-28-2021 13:19-0400 Heart rate 76 /min FENCE SUPERVISOR-C Aissatou Trujillo FENCE SUPERVISOR Work Phone: [facility] Work Phone: 09-28-2021 13:19-0400 Respiratory rate 16 /min FENCE SUPERVISOR-C Aissatou Trujillo FENCE SUPERVISOR Work Phone: [facility] Work Phone: 09-28-2021 13:19-0400 Systolic blood pressure 132 mm[Hg] FENCE SUPERVISOR-C Aissatou Trujillo FENCE SUPERVISOR Work Phone: [facility] Work Phone: Encounters Encounter Date Encounter Type Care Provider Facility Start: 09[facility]24-2024 [facility] Start: 09-[facility] Start: 08-21-2024 End: 08-21-2024 ambulatory Asisatou Trujillo FENCE SUPERVISOR-C Work Phone: [facility] Work Phone: Start: 08-21-2024 End: 08-21-2024 Patient encounter procedure Keshawn NOYOLA -Pulmonary Services/Neurology Work Phone: Start: 08-21-2024 End: 08-21-2024 ambulatory Aissatou Trujillo FENCE SUPERVISOR Facility:[facility] Start: 08-01-2024 End: 08-01-2024 Patient encounter procedure Keshawn NOYOLA -[facility] Work Phone: Start: 08-01-2024 End: 08-01-2024 ambulatory Aissatou Trujillo FENCE SUPERVISOR-C Work Phone: [facility] Work Phone: Start: 07-10-2024 End: 07-10-[address] Yoav Olivares DO -[facility] Work Phone: Start: 07-10-2024 End: 07-10-2024 ambulatory Yoav Olivares Facility:[facility] Start: 07-10-2024 End: 07-10-2024 Patient encounter procedure Keshawn NOYOLA -[facility] Work Phone: Start: 07-10-2024 End: 07-10-2024 ambulatory Aissatou Trujillo NP Facility:[facility] Start: 07-06-2024 End: 07-06-[address] Yoav Olivares DO -Laboratory Work Phone: Start: 07-06-2024 End: 07-06-2024 ambulatory Yoav Olivares Facility:[facility] Start: 06-25-2024 End: 06-25-2024 Patient encounter procedure Marsha [place] -[facility] Work Phone: Start: 06-25-2024 End: 06-25-2024 ambulatory Aissatou Trujillo NP Facility:[facility] Start: 06-21-2024 End: 06-21-2024 Emergency department patient visit Aissatou Trujillo FENCE SUPERVISOR-C Work Phone: -Emergency Department Work Phone: Start: 06-13-2024 End: 06-17-2024 ambulatory AISSATOU TRUJILLO APRN-CONCRETE CRAFTSMAN Facility:[facility] Start: 06-06-2024 Non-patient / Non-visit Dr. Riley NARVAEZ -[facility] Work Phone: Start: 06-06-2024 End: 06-06-2024 ambulatory Aissatou Trujillo FENCE SUPERVISOR-C Work Phone: [facility] Work Phone: Start: 06-06-2024 End: 06-06-2024 Patient encounter procedure Marsha NOYOLA -Pulmonary Services/Neurology Work Phone: Start: 06-06-2024 End: 06-06-2024 ambulatory Aissatou Trujillo FENCE SUPERVISOR Facility:[facility] Start: 05-25-2024 End: 05-25-2024 Patient encounter procedure Marsha NOYOLA -[facility] Work Phone: Start: 05-25-2024 End: 05-25-2024 ambulatory Aissatou Trujillo NP Facility:[facility] Start: 04-17-2024 End: 04-17-2024 Patient encounter procedure Ling Beck -Laboratory Work Phone: Start: 04-17-2024 End: 04-17-2024 ambulatory Ling Beck Facility:[facility] Start: 01-09-2024 End: 01-09-2024 ambulatory Yoav Marshall Facility:[facility] Start: 01-06-2024 End: 01-06-2024 ambulatory Yoav Bessemer Facility:[facility] Start: 11-29-2023 End: 11-29-2023 Office outpatient new 45 minutes Maurice Fulton MD Work Phone: [facility] Card[facility] Comment on above: Paroxysmal atrial fi brillation (HCC) Start: 11-29-2023 End: 11-29-2023 ambulatory MAURICE FULTON [facility] Start: 11-28-2023 End: 11-28-2023 ambulatory AISSATOU LORSON TRIAL ATTORNEY-CONCRETE CRAFTSMAN Facility:[facility] Start: 11-28-2023 End: 11-28-2023 Patient encounter procedure AISSATOUESPERANZA TRUJILLO TRIAL ATTORNEY-CONCRETE CRAFTSMAN [facility] Start: 11-25-2023 End: 11-25-2023 ambulatory Aissatou Trujillo FENCE SUPERVISOR [facility] Start: 10-24-2023 End: 10-24-2023 ambulatory Aissatou Trujillo FENCE SUPERVISOR Facility:[facility] Start: 10-17-2023 End: 10-17-2023 ambulatory Aissatou Trujillo FENCE SUPERVISOR Facility:[facility] Start: 10-05-2023 End: 10-05-2023 ambulatory Marsha Tmepleton PA Facility:[facility] Start: 07-11-2023 End: 07-11-2023 Patient encounter procedure FENCE SUPERVISOR-C Aissatou Trujillo FENCE SUPERVISOR Work Phone: [facility] Work Phone: Start: 07-08-2023 End: 07-08-2023 ambulatory FENCE SUPERVISOR-C Aissatou Trujillo FENCE SUPERVISOR Work Phone: [facility] Work Phone: Start: 07-08-2023 End: 07-08-2023 Patient encounter procedure FENCE SUPERVISOR-C Aissatou Trujillo FENCE SUPERVISOR Work Phone: [facility]-Laboratory Work Phone: Start: 04-27-2023 Non-patient / Non-visit FENCE SUPERVISOR-C Jimena Trujillo FENCE SUPERVISOR Work Phone: [facility] Work Phone: Start: 04-18-2023 End: 04-18-2023 ambulatory FENCE SUPERVISOR-C Aissatou Trujillo FENCE SUPERVISOR Work Phone: [facility] Work Phone: Start: 04-18-2023 End: 04-18-2023 Patient encounter procedure FENCE SUPERVISOR-C Aissatou Trujillo FENCE SUPERVISOR Work Phone: [facility]-Pulmonary Services/Neurology Work Phone: Start: 04-11-2023 End: 04-11-2023 ambulatory FENCE SUPERVISOR-C Aissatou Trujillo FENCE SUPERVISOR Work Phone: [facility] Work Phone: Start: 04-11-2023 End: 04-11-2023 Patient encounter procedure FENCE SUPERVISOR-C Aissatou Trujillo FENCE SUPERVISOR Work Phone: [facility]-Laboratory Work Phone: Start: 03-03-2023 End: 03-03-2023 Emergency department patient visit FENCE SUPERVISOR-C Aissatou Trujillo FENCE SUPERVISOR Work Phone: [facility]-Emergency Department Work Phone: Start: 02-24-2023 End: 02-24-2023 Patient encounter procedure FENCE SUPERVISOR-C Aissatou Trujillo FENCE SUPERVISOR Work Phone: [facility] Work Phone: Start: 02-07-2023 End: 02-08-2023 ambulatory AISSATOU TRUJILLO TRIAL ATTORNEY-CONCRETE CRAFTSMAN Facility:B Start: 01-18-2023 End: 01-18-2023 Admission to same day surgery center FENCE SUPERVISOR-C Aissatou Trujillo FENCE SUPERVISOR Work Phone: [facility] Start: 01-12-2023 End: 01-12-2023 Non-patient / Non-visit FENCE SUPERVISOR-C Aissatou Trujillo FENCE SUPERVISOR Work Phone: [facility] Work Phone: Start: 01-05-2023 End: 01-05-2023 ambulatory FENCE SUPERVISOR-C Aissatou Trujillo FENCE SUPERVISOR Work Phone: [facility] Work Phone: Start: 01-05-2023 End: 01-05-2023 Patient encounter procedure FENCE SUPERVISOR-C Aissatou Trujillo FENCE SUPERVISOR [facility] Start: 11-30-2022 Non-patient / Non-visit FENCE SUPERVISOR-C Jimena Trujillo FENCE SUPERVISOR Work Phone: [facility] Work Phone: Start: 11-22-2022 End: 11-23-2022 ambulatory AISSATOU TRUJILLO TRIAL ATTORNEY-CONCRETE CRAFTSMAN Facility:B Start: 11-22-2022 End: 11-22-2022 Patient encounter procedure AISSATOU TRUJILLO TRIAL ATTORNEY-CONCRETE CRAFTSMAN [facility] Start: 11-18-2022 End: 11-18-2022 Patient encounter procedure FENCE SUPERVISOR-C Aissatou Trujillo FENCE SUPERVISOR Work Phone: [facility] Work Phone: Start: 09-30-2022 End: 10-19-2022 ambulatory AISSATOU TRUJILLO TRIAL ATTORNEY-CONCRETE CRAFTSMAN Facility:B Start: 09-30-2022 End: 10-19-2022 Physical therapy management AISSATOU TRUJILLO TRIAL ATTORNEY-CONCRETE CRAFTSMAN [facility] Start: 09-29-2022 End: 09-29-2022 ambulatory FENCE SUPERVISOR-C Aissatou Trujillo FENCE SUPERVISOR Work Phone: [facility] Work Phone: Start: 09-29-2022 End: 09-29-2022 Patient encounter procedure FENCE SUPERVISOR-C Aissatou Trujillo FENCE SUPERVISOR Work Phone: [facility] Work Phone: Start: 09-22-2022 End: 09-23-2022 ambulatory AISSATOU TRUJILLO TRIAL ATTORNEY-CONCRETE CRAFTSMAN Facility:B Start: 09-22-2022 End: 09-22-2022 Patient encounter procedure AISSATOU TRUJILLO TRIAL ATTORNEY-CONCRETE CRAFTSMAN [facility] Start: 09-03-2022 Non-patient / Non-visit FENCE SUPERVISOR-C Jimena Trujillo FENCE SUPERVISOR Work Phone: [facility] Work Phone: Start: 09-01-2022 End: 09-01-2022 ambulatory FENCE SUPERVISOR-C Aissatou Trujillo FENCE SUPERVISOR Work Phone: [facility] Work Phone: Start: 09-01-2022 End: 09-01-2022 Patient encounter procedure FENCE SUPERVISOR-C Aissatou Trujillo FENCE SUPERVISOR Work Phone: [facility]/Neurology Work Phone: Start: 08-27-2022 End: 08-27-2022 ambulatory FENCE SUPERVISOR-C Aissatou Trujillo FENCE SUPERVISOR Work Phone: [facility] Work Phone: Start: 08-27-2022 End: 08-27-2022 Patient encounter procedure FENCE SUPERVISOR-C Aissatou Trujillo FENCE SUPERVISOR Work Phone: [facility] Work Phone: Start: 08-26-2022 End: 08-26-2022 Patient encounter procedure FENCE SUPERVISOR-C Aissatou Trujillo FENCE SUPERVISOR Work Phone: [facility] Work Phone: Start: 08-18-2022 End: 08-18-2022 ambulatory FENCE SUPERVISOR-C Aissatou Trujillo FENCE SUPERVISOR Work Phone: [facility] Work Phone: Start: 08-18-2022 End: 08-18-2022 Patient encounter procedure FENCE SUPERVISOR-C Aissatou Trujillo FENCE SUPERVISOR Work Phone: [facility] Start: 07-26-2022 End: 07-26-2022 ambulatory FENCE SUPERVISOR-C Aissatou Trujillo FENCE SUPERVISOR Work Phone: [facility] Work Phone: Start: 07-26-2022 End: 07-26-2022 Patient encounter procedure FENCE SUPERVISOR-C Aissatou Trujillo FENCE SUPERVISOR Work Phone: [facility]Labor[facility] Start: 07-15-2022 Registered Recurring FENCE SUPERVISOR-C Yoel Trujillo FENCE SUPERVISOR Work Phone: [facility]Radiation Oncology Start: 07-14-2022 End: 07-14-2022 Patient encounter procedure FENCE SUPERVISOR-C Aissatou Trujillo FENCE SUPERVISOR Work Phone: [facility] Start: 07-07-2022 End: 07-07-2022 Patient encounter procedure FENCE SUPERVISOR-C Aissatou Trujillo FENCE SUPERVISOR Work Phone: [facility] Start: 06-30-2022 End: 06-30-2022 Patient encounter procedure FENCE SUPERVISOR-C Aissatou Trujillo FENCE SUPERVISOR Work Phone: [facility] Start: 06-23-2022 End: 06-23-2022 Patient encounter procedure FENCE SUPERVISOR-C Aissatou Trujillo FENCE SUPERVISOR Work Phone: [facility] Start: 06-16-2022 End: 06-16-2022 Patient encounter procedure FENCE SUPERVISOR-C Aissatou Trujillo FENCE SUPERVISOR Work Phone: [facility] Start: 06-09-2022 End: 06-09-2022 Patient encounter procedure FENCE SUPERVISOR-C Aissatou Trujillo FENCE SUPERVISOR Work Phone: [facility] Start: 06-04-2022 Registered Recurring FENCE SUPERVISOR-C Yoel Trujillo FENCE SUPERVISOR Work Phone: [facility] Start: 06-02-2022 End: 06-02-2022 Patient encounter procedure FENCE SUPERVISOR-C Aissatou Trujillo FENCE SUPERVISOR Work Phone: [facility] Start: 06-01-2022 End: 06-01-2022 ambulatory FENCE SUPERVISOR-C Aissatou Trujillo FENCE SUPERVISOR Work Phone: [facility] Work Phone: Start: 06-01-2022 End: 06-01-2022 Patient encounter procedure FENCE SUPERVISOR-C Aissatou Trujillo FENCE SUPERVISOR Work Phone: [facility]Labor[facility] Start: 05-28-2022 Non-patient / Non-visit FENCE SUPERVISOR-C Jimena Trujillo FENCE SUPERVISOR Work Phone: [facility] Start: 05-27-2022 Non-patient / Non-visit FENCE SUPERVISOR-C Jimena Trujillo FENCE SUPERVISOR Work Phone: [facility] Start: 05-20-2022 Non-patient / Non-visit FENCE SUPERVISOR-C Jimena Trujillo FENCE SUPERVISOR Work Phone: [facility] Start: 05-19-2022 End: 05-20-2022 ambulatory AISSATOU TRUJILLO TRIAL ATTORNEY-CONCRETE CRAFTSMAN Facility:B Start: 05-19-2022 End: 05-19-2022 Minor Procedure LAURIE QUINONES DO [facility] Start: 05-18-2022 End: 05-18-2022 Patient encounter procedure FENCE SUPERVISOR-C Aissatou Trujillo FENCE SUPERVISOR Work Phone: [facility] Start: 04-22-2022 End: 04-22-2022 Patient encounter procedure FENCE SUPERVISOR-C Aissatou Trujillo FENCE SUPERVISOR Work Phone: [facility] Start: 04-08-2022 End: 04-08-2022 Patient encounter procedure FENCE SUPERVISOR-C Aissatou Trujillo FENCE SUPERVISOR Work Phone: [facility] Start: 03-24-2022 End: 03-24-2022 ambulatory [facility] Work Phone: Start: 03-24-2022 End: 03-24-2022 Patient encounter procedure [facility] Start: 12-18-2021 End: 12-20-2021 Evaluation and management of inpatient FENCE SUPERVISOR-Gelacio Trujillo FENCE SUPERVISOR Work Phone: [facility]-Medical Surgical 3 Start: 12-18-2021 End: 12-20-2021 observation encounter FENCE SUPERVISOR-C Aissatou Trujillo FENCE SUPERVISOR Work Phone: [facility] Work Phone: Start: 11-10-2021 End: 11-10-2021 Patient encounter procedure FENCE SUPERVISOR-C Aissatou Trujillo FENCE SUPERVISOR Work Phone: [facility] Start: 10-15-2021 Non-patient / Non-visit FENCE SUPERVISOR-C Jimena Trujillo FENCE SUPERVISOR Work Phone: [facility] Start: 10-15-2021 End: 10-15-2021 Patient encounter procedure FENCE SUPERVISOR-C Aissatou Trujillo FENCE SUPERVISOR [facility] Start: 09-30-2021 End: 09-30-2021 Patient encounter procedure AISSATOU TRUJILLO TRIAL ATTORNEY-CONCRETE CRAFTSMAN [facility] Start: 09-29-2021 Non-patient / Non-visit FENCE SUPERVISOR-C Jimena Trujillo FENCE SUPERVISOR Work Phone: [facility] Start: 09-29-2021 End: 09-29-2021 Patient encounter procedure FENCE SUPERVISOR-C Aissatou Trujillo FENCE SUPERVISOR Work Phone: [facility] Start: 09-29-2021 Non-patient / Non-visit FENCE SUPERVISOR-C Jimena Trujillo FENCE SUPERVISOR Work Phone: [facility] Start: 09-28-2021 Patient encounter status FENCE SUPERVISOR-Gelacio Trujillo FENCE SUPERVISOR Work Phone: [facility] Start: 09-28-2021 End: 09-28-2021 Admission to same day surgery center FENCE SUPERVISOR-C Aissatou Trujillo FENCE SUPERVISOR Work Phone: [facility] Start: 09-28-2021 End: 09-28-2021 Patient encounter procedure FENCE SUPERVISOR-Gelacio Trujillo FENCE SUPERVISOR Work Phone: [facility] Start: 09-24-2021 EKG myocardial ischemia FENCE SUPERVISOR-C Jimena Trujillo FENCE SUPERVISOR Work Phone: [facility] Start: 09-23-2021 End: 09-23-2021 ambulatory FENCE SUPERVISOR-C Aissatou Trujillo FENCE SUPERVISOR Work Phone: [facility] Work Phone: Start: 09-23-2021 End: 09-23-2021 Patient encounter procedure FENCE SUPERVISOR-C Aissatou Trujillo FENCE SUPERVISOR Work Phone: [facility]-Pre-Admission Testing Start: 09-23-2021 End: 09-29-2021 Non-patient / Non-visit FENCE SUPERVISOR-C Aissatou Trujillo FENCE SUPERVISOR Work Phone: [facility] Start: 09-02-2021 End: 09-02-2021 Patient encounter procedure [facility]Nuclear Medicine, [facility] Start: 08-24-2021 End: 08-24-2021 Patient encounter procedure AISSATOU HOGANCHARMAINE TRIAL ATTORNEY-CONCRETE CRAFTSMAN [facility] Start: 08-13-2021 End: 08-13-2021 Patient encounter procedure [facility]-Laboratory, Specimen Start: 08-05-2021 End: 08-05-2021 Patient encounter procedure [facility]-MRI - [facility] Start: 07-21-2021 End: 07-21-2021 Patient encounter procedure [facility] Procedures Date Procedure Procedure Detail Performing Clinician Start: 07-10-2024 Evaluation of diagno stic study results Aissatou Trujillo FENCE SUPERVISOR-C Work Phone: Start: 07-06-2024 Assay of prostate sp ecific antigen total Aissatou Trujillo FENCE SUPERVISOR-C Work Phone: Comment on above: This test was perfor med using the [employer] tPSA method. Measured values of a patient sample can vary depending on the testing procedure used. PSA values determined on patient samples by different testing procedures cannot be used interchangeably. If there is a change in PSA assays while monitoring therapy, sequential testing should be performed to confirm baseline values. Start: 06-25-2024 Evaluation of diagno stic study results Aissatou Hogancharmaine FENCE SUPERVISOR-C Work Phone: Start: 06-21-2024 Estimated creatinine clearance Aissatou Hogancharmaine FENCE SUPERVISOR-C Work Phone: Start: 04-17-2024 Assay of prostate sp ecific antigen total Aissatou Trujillo FENCE SUPERVISOR-C Work Phone: Comment on above: This test was perfor med using the TPSA assay method for [employer] chemistry system. Values obtained with differentassay methods cannot be used interchangably.When changing PSA assays in the course of monitoring apatient, additional sequential testing should be carriedout to confirm baseline values. Start: 11-29-2023 Ecg routine ecg w/le ast 12 lds trcg only w/o i&r Maurice Fulton MD Work Phone: Start: 03-03-2023 CT of head without contrast FENCE SUPERVISOR-C Aissatou Darin FENCE SUPERVISOR Work Phone: Start: 08-18-2022 CT of soft tissues o f neck with contrast FENCE SUPERVISOR-C Aissatou Darin FENCE SUPERVISOR Work Phone: Start: 05-19-2022 Colonoscopy LAURIE STACIE DO Start: 04-20-2022 Positron emission to mography with computed tomography FENCE SUPERVISOR-C Aissatou Lorcharmaine FENCE SUPERVISOR Work Phone: Start: 12-18-2021 Lap Robotic Prostate ctomy (Not Applicable) FENCE SUPERVISOR-C Aissatou Darin FENCE SUPERVISOR Work Phone: Start: 09-02-2021 Radionuclide whole b [facility] bone study Start: 08-05-2021 MRI of pelvis with contrast Cardiac catheterization YOEL ESPERANZA DARIN TRIAL ATTORNEY-CONCRETE CRAFTSMAN Catheter procedure AISSATOU OROPEZA TRIAL ATTORNEY-CONCRETE CRAFTSMAN Hand structure (body structure) AISSATOU TRUJILLO TRIAL ATTORNEY-CONCRETE CRAFTSMAN Comment on above: left hand I&D Hernia of abdominal cavity (disorder) AISSATOU TRUJILLO TRIAL ATTORNEY-CONCRETE CRAFTSMAN Comment on above: umbilical Tonsillectomy AISSATOU TRUJILLO TRIAL ATTORNEY-CONCRETE CRAFTSMAN Vasectomy AISSATOU TRUJILLO TRIAL ATTORNEY-CONCRETE CRAFTSMAN Plan of Treatment Date Care Activity Detail Author Start: 12-24-2026 DTaP/Tdap/Td Vaccines (2 - Td or Tdap) DTaP/Tdap/Td Vaccines (2 - Td or Tdap) [facility] Start: 08-01-2024 Evaluation of diagnostic study results [facility] Start: 06-21-2024 [facility] Start: 06-21-2024 [facility] Start: 11-06-2023 COVID-19 Vaccine ( season) COVID-19 Vaccine () [facility] Start: 11-06-2023 Influenza vaccination Influenza Vaccine (#1) [facility] Start: 03-07-2023 Medicare Advantage Annual Wellness Visit Medicare Advantage Annual Wellness Visit [facility] Start: 03-03-2023 [facility] Start: 01-18-2023 Anes integ musc & nrv head neck&posterior trunk ANESTH HEAD/NECK/PTRUNK [facility] Start: 01-18-2023 Excision tumor soft tiss face/scalp subq 2 cm/> EXC FACE LES SBQ 2 CM/> [facility] Start: 01-18-2023 Patient discharge [facility] Start: 07-07-2022 Patient referral [facility] Work Phone: Start: 12-20-2021 Patient discharge [facility] Start: 12-19-2021 Following clinical pathway protocol [facility] Start: 12-18-2021 Application of intermittent pneumatic compression device [facility] Start: 12-18-2021 Following clinical pathway protocol [facility] Start: 12-18-2021 Anes xtrprtl lwr abd w/urinary tract rad prstect ANESTH REMOVAL OF PROSTATE [facility] Start: 12-18-2021 Laps prostect retropubic rad w/nrv sparing robot LAPS SURG [id number] RPBIC RAD [facility] Start: 12-18-2021 Admission procedure [facility] Start: 12-18-2021 Deep breathing and coughing exercises [facility] Start: 12-18-2021 Measuring intake and output [facility] Start: 12-18-2021 Patient education [facility] Start: 12-18-2021 Provision of activity privileges [facility] Start: 12-18-2021 Taking patient vital signs [facility] Start: 12-18-2021 Vital signs measurements [facility] Start: 12-18-2021 [facility] Start: 2009 RSV Immunization aged 60 or older (1 - 1-dose 60+ series) RSV Immunization aged 60 or older (1 - 1-dose 60+ series) [facility] Start: 1967 Diabetes mellitus screening Diabetes Screening [facility] Start: 1967 Hepatitis C screening Hepatitis C Screening [facility] Start: 1961 Depression Screening Depression Screening [facility] Start: 1949 Lipid panel Lipid Panel [facility] Start: 1949 Screening for malignant neoplasm of colon [facility] 24 Hour ECG [facility] Work Phone: Ambulatory ECG [facility] ECG 12 lead ECG 12 lead CV E CG Routine Paroxysmal atrial fibrillation (HCC) 11/29/2023 8:46 AM EDT [facility] Work Phone: Hepatic function panel [facility] Measurement of respiratory function [facility] Patient Education [facility] Work Phone: Patient referral [facility] Work Phone: Positron emission tomography with computed tomography [facility] Prostate specific antigen measurement [facility] Prostate specific antigen measurement [facility] Radionuclide imaging of perfusion of myocardium under exercise stress [facility] Work Phone: Thyroid stimulating hormone measurement [facility] Immunizations Immunization Date Immunization Notes Care Provider Fa cili 05-26-2023 influenza virus vacc ine, unspecified formulation Maurice Fulton MD Work Phone: [facility] 01-22-2022 influenza virus vacc ine, unspecified formulation AISSATOU TRUJILLO TRIAL ATTORNEY-CONCRETE CRAFTSMAN [facility] 12-16-2020 influenza virus vacc ine, unspecified formulation AISSATOU TRUJILLO TRIAL ATTORNEY-CONCRETE CRAFTSMAN [facility] 06-26-2020 SARS-CoV-2 (COVID-19 ) mRNA-[id number] vaccine AISSATOU TRUJILLO TRIAL ATTORNEY-CONCRETE CRAFTSMAN [facility] Comment on above: Result Comment: 2021: [id number] 05-29-2020 SARS-CoV-2 (COVID-19 ) mRNA-[id number] vaccine AISSATOU TRUJILLO TRIAL ATTORNEY-CONCRETE CRAFTSMAN [facility] Comment on above: Result Comment: 2021: [id number] 11-21-2019 influenza virus vacc ine, unspecified formulation AISSATOU TRUJILLO TRIAL ATTORNEY-CONCRETE CRAFTSMAN [facility] 11-21-2019 pneumococcal polysaccharide vaccine, 23 valent AISSATOU DARIN TRIAL ATTORNEY-CONCRETE CRAFTSMAN [facility] 12-18-2018 influenza virus vacc ine, unspecified formulation AISSATOU TRUJILLO TRIAL ATTORNEY-CONCRETE CRAFTSMAN [facility] 09-11-2018 zoster vaccine recombinant AISSATOU TRUJILLO TRIAL ATTORNEY-CONCRETE CRAFTSMAN [facility] 07-10-2018 zoster vaccine recombinant AISSATOU TRUJILLO TRIAL ATTORNEY-CONCRETE CRAFTSMAN [facility] 12-21-2017 influenza virus vacc ine, unspecified formulation AISSATOU TRUJILLO TRIAL ATTORNEY-CONCRETE CRAFTSMAN [facility] 12-24-2016 tetanus toxoid, redu adriano diphtheria toxoid, and acellular pertussis vaccine, adsorbed AISSATOU DARIN TRIAL ATTORNEY-CONCRETE CRAFTSMAN [facility] 10-25-2016 pneumococcal conjuga te vaccine, 13 valent AISSATOU TRUJILLO TRIAL ATTORNEY-CONCRETE CRAFTSMAN [facility] 12-10-2015 influenza virus vacc ine, unspecified formulation AISSATOU TRUJILLO TRIAL ATTORNEY-CONCRETE CRAFTSMAN [facility] 01-17-2015 influenza virus vacc ine, unspecified formulation AISSATOU TRUJILLO TRIAL ATTORNEY-CONCRETE CRAFTSMAN [facility] 01-07-2014 influenza virus vacc ine, unspecified formulation AISSATOU TRUJILLO TRIAL ATTORNEY-CONCRETE CRAFTSMAN [facility] 12-20-2012 influenza virus vacc ine, unspecified formulation AISSATOU TRUJILLO TRIAL ATTORNEY-CONCRETE CRAFTSMAN [facility] Payers Date Payer Category Payer Unknown [id number] 2023 Medicare [id number] 2023 Self-pay [id number] 2023 Medicare [employer] MED[employer] RE [employer]URE [id number] 2023-Present [address] [place] [address] Medicare O [id number] 2022 Medicare [id number] 2014 Medicare [id number] 1949 Unknown [id number] [id number] 1949 Unknown [id number] [id number]7 1949 Unknown [id number] 2..840.1.741157.3.579.2.62 1949 Unknown [id number] 2.16.840.1.246635.3.579.2.62 1949 Unknown [id number] 2..840.1.939531.3.579.2.62 1949 Unknown [id number] 2.840.1.202653.3.579.2.62 1949 Unknown [id number] 2.840.1.800160.3.579.2.627 Unknown [id number] Unknown [id number] 2.16840.1.676419.3.579.2.462 Unknown [id number] 2.16840.1.602363.3.579.2.462 Unknown [id number] 2.840.1.729391.3.579.2.462 Unknown [id number] 2.840.1.889863.3.579.2.462 Unknown [id number] 2.16840.1.845048.3.579.2.462 Unknown [id number] 2.16.840.1.917465.3.579.2.462 Unknown [id number] 2.16840.1.806675.3.579.2.462 Unknown [id number] 2.16840.1.831621.3.579.2.462 Unknown [id number] 2.16840.1.767727.3.579.2.462 Unknown [id number] 2.16.840.1.700312.3.579.2.462 Unknown [id number] 2.16.840.1.989440.3.579.2.462 Unknown [id number] 2.16.840.1.097741.3.579.2.462 Unknown [id number] 2.16.840.1.286291.3.579.2.462 Unknown [id number] 2.16.840.1.988400.3.579.2.462 Unknown [id number] 2.16.840.1.222124.3.579.2.462 Unknown [id number] 2.16.840.1.044936.3.579.2.462 Unknown [id number] 2.16.840.1.154130.3.579.2.462 Unknown [id number] 2.16.840.1.762662.3.579.2.462 Unknown [id number] 2.16.840.1.253163.3.579.2.462 Unknown [id number] 2.16.840.1.550007.3.579.2.462 Social History Date Type Detail Facility Start: 06-23-2015 End: 03-03-2023 Tobacco smoking status MOIS Unknown if ever smoked [facility] Start: 1950 Sex Assigned At Male W [facility] Work Phone: Start: 06-05-2020 End: 06-21-2024 Tobacco smoking status Never smoked tobacco (finding) [facility] Start: 10-31-2023 Tobacco use and exposure Smokeless tobacco non-user [facility] Start: 10-31-2023 Alcoholic beverage intake Not Asked [facility] Start: 10-31-2023 History of Social function [facility] Start: 10-31-2023 Tobacco use panel [facility] Start: 10-31-2023 Alcohol [facility] Start: 1950 Sex assigned at Not on file S [facility] Start: 06-09-2024 End: 06-21-2024 Sex Male (finding) [facility] Medical Equipment Procedure Code Equipment Code Equipment Origin al Text Equipment Identifier Dates CLIP,HEMTERRYJOSE HAM ROXIE FDA Start: 12-18-2021 CLIP,HEMTERRYJOSE FATOUMATA FAUSTIN FDA Start: 12-18-2021 CLIP,HEMTERRYJOSE FATOUMATA FAUSTIN FDA Start: 12-18-2021 CLIP,HEMTERRYJOSE FATOUMATA FAUSTIN FDA Start: 12-18-2021 Ligation clip, synthetic polymer, non-bioabsorbable [id number] FDA Start: 12-18-2021 CLIP,HEMTERRYJOSE FAUSTIN FDA Start: 12-18-2021 CLIP,HEMTERRYJOSE FAUSTIN FDA Start: 12-18-2021 CLIP,HEMTERRYJOSE FATOUMATA FAUSTIN FDA Start: 12-18-2021 CLIP,HEMTERRYJOSE HAM ROXIE FDA Start: 12-18-2021 CLIP,HEMTERRYCK FATOUMATA ROXIE FDA Start: 12-18-2021 CLIP,HEMTERRYCK FATOUMATA FAUSTIN FDA Start: 12-18-2021 CLIP,HEMTERRYCK FATOUMATA FAUSTIN FDA Start: 12-18-2021 CLIP,HEMTERRYJOSE HAM ROXIE FDA Start: 12-18-2021 CLIP,HEMTERRYJOSE FATOUMATA FAUSTIN FDA Start: 12-18-2021 CLIP,HEMJHON FAUSTIN FDA Start: 12-18-2021 CLIP,HEMTERRYJOSE LG ROXIE FDA Start: 12-18-2021 CLIP,HEMTERRYJOSE LG ROXIE FDA Start: 12-18-2021 CLIP,HEMOLOCK LG ROXIE FDA Start: 12-18-2021 CLIP,HEMJHON FAUSTIN FDA Start: 12-18-2021 CLIP,HEMTERRYJOSE LG VIVEKJOSE FDA Start: 12-18-2021 CLIP,HEMTERRYJOSE LG VIVEKJOSE FDA Start: 12-18-2021 CLIP,HEMOLOCK LG ROXIE FDA Start: 12-18-2021 CLIP,HEMTERRYJOSE LG VIVEKJOSE FDA Start: 12-18-2021 CLIP,HEMTERRYJOSE LG ROXIE FDA Start: 12-18-2021 CLIP,HEMOLOJOSE LG VIVEKJOSE FDA Start: 12-18-2021 CLIP,HEMOLOCK LG WECK FDA Start: 12-18-2021 CLIP,HEMOLOCK LG WECK FDA Start: 12-18-2021 CLIP,HEMOLOCK LG WECK FDA Start: 12-18-2021 CLIP,HEMOLOCK LG WECK FDA Start: 12-18-2021 CLIP,HEMOLOCK LG WECK FDA Start: 12-18-2021 CLIP,HEMOLOCK LG WECK FDA Start: 12-18-2021 CLIP,HEMOLOCK LG WECK FDA Start: 12-18-2021 CLIP,HEMOLOCK LG WECK FDA Start: 12-18-2021 CLIP,HEMOLOCK LG WECK FDA Start: 12-18-2021 CLIP,HEMOLOCK LG WECK FDA Start: 12-18-2021 CLIP,HEMOLOCK LG WECK FDA Start: 12-18-2021 CLIP,HEMOLOCK LG WECK FDA Start: 12-18-2021 CLIP,HEMOLOCK LG WECK FDA Start: 12-18-2021 CLIP,HEMOLOCK LG WECK FDA Start: 12-18-2021 CLIP,HEMOLOCK LG WECK FDA Start: 12-18-2021 CLIP,HEMOLOCK LG WECK FDA Start: 12-18-2021 CLIP,HEMOLOCK LG WECK FDA Start: 12-18-2021 CLIP,HEMOLOCK LG WECK FDA Start: 12-18-2021 CLIP,HEMOLOCK LG WECK FDA Start: 12-18-2021 CLIP,HEMOLOCK LG WECK FDA Start: 12-18-2021 CLIP,HEMOLOCK LG WECK FDA Start: 12-18-2021 CLIP,HEMOLOCK LG WECK FDA Start: 12-18-2021 CLIP,HEMOLOCK LG WECK FDA Start: 12-18-2021 CLIP,HEMOLOCK LG WECK FDA Start: 12-18-2021 CLIP,HEMOLOCK LG WECK FDA Start: 12-18-2021 CLIP,HEMOLOCK LG WECK FDA Start: 12-18-2021 CLIP,HEMOLOCK LG WECK FDA Start: 12-18-2021 CLIP,HEMOLOCK LG WECK FDA Start: 12-18-2021 CLIP,HEMOLOCK LG WECK FDA Start: 12-18-2021 CLIP,HEMOLOCK LG WECK FDA Start: 12-18-2021 CLIP,CADENCE FAUSTIN FDA Start: 12-18-2021 CLIP,CADENCE FAUSTIN FDA Start: 12-18-2021 CLIP,CADENCE FAUSTIN FDA Start: 12-18-2021 CLIP,CADENCE FAUSTIN FDA Start: 12-18-2021 CLIP,CADENCE FAUSTIN FDA Start: 12-18-2021 CLIP,CADENCE FAUSTIN FDA Start: 12-18-2021 Goals Date Patient Goal Desired Activity /State Functional Status Date Assessment Result Facility 09-30-2022 [...] no increased lateral hip pain on the [facility] 05-19-2022 Functional Status Maintained [facility] 12-20-2021 Functional status Ambulates;Up ad rip [facility] Work Phone: Mental Status Date Assessment Result Facility 06-21-2024 Cognitive function Voice/Name [facility] Work Phone: 03-03-2023 Cognitive function Level Of Cons ciousness Awake;Alert;Appropriate;Follow s Commands [facility] Work Phone: 01-18-2023 Cognitive function Voice/Name [facility] Work Phone: 05-19-2022 Mental Status Oriented x 4 [facility] 12-19-2021 Cognitive function Voice/Name [facility] Work Phone: Clinical Notes 09-30-2021 to 06-21-2024 Note Date & Type Note Facility 06-21-2024 Hospital Discharg e instructions Additional Instructions Discontinue your metoprolol Decrease your amiodarone dose to 200 mg daily Follow-up in the office with cardiology within the next 3 to 5 days. [facility] Work Phone: 06-16-2024 Note . MICRO - Microbiology PROCEDURE: Stool Culture [^1 *1] SOURCE: Stool BODY SITE: COLLECTED DATE/TIME: 06/13/2024 09:23 EDT RECEIVED DATE/TIME: 06/13/2024 18:30 EDT START DATE/TIME: 06/13/2024 18:30 EDT FREE TEXT SOURCE: FINAL REPORTS Final Report [] Verified Date/Time/Personnel: 06/16/2024 10:38 EDT Normal stool oseas present. Salmonella: Negative Shigella: Negative Campylobacter: Negative PRELIMINARY REPORTS Preliminary Report [] Verified Date/Time/Personnel: 06/15/2024 09:33 EDT Normal stool oseas present. Negative for stool pathogens at 48 hours. Final report to follow. Interpretive Data ^1: Culture Stool Requests for alternative pathogens including Yersinia, E. coli 0157, C. difficile toxin, Rotavirus, Giardia and parasites require specific requests. Performing Locations *1: This test was performed at: [address] 06-14-2024 Note . MICRO - Microbiology PROCEDURE: Shiga Toxins 1 and 2 [[id number]: [id number] ^1 *1] SOURCE: Stool BODY SITE: COLLECTED DATE/TIME: 06/13/2024 18:30 EDT RECEIVED DATE/TIME: 06/13/2024 18:30 EDT START DATE/TIME: 06/13/2024 18:30 EDT FREE TEXT SOURCE: FINAL REPORTS Final Report [] Verified Date/Time/Personnel: 06/14/2024 10:54 EDT Absence of Shiga toxin 1 Absence of Shiga toxin 2 Order Comments O1: Shiga Toxins 1 and 2 ordered by lab as part of Culture Stool Panel Interpretive Data ^1: Shiga Toxins 1 and 2 Testing performed by immunochromatography. Performing Locations *1: This test was performed at: [address] 05-25-2024 Evaluation note Diagnosis Onset Date Resolution ERNESTO (obstructive sleep apnea) acute May 25, 2024 8:44am Asymptomatic PVCs chronic May 062024 8:44am Essential hypertension chronic [facility] 2024 8:44am Nonrheumatic mitral (valve) insufficiency chronic May 8:44am Paroxysmal atrial fibrillation chronic May 25, 2024 8:44am [facility] Work Phone: 1(469) 319-772803-21-2025 Evaluation note* Diagnosis Onset Date Resolution Status Admit Date ERNESTO (obstructive sleep apnea) acute May 25, 2024 8:44am Asymptomatic PVCs chronic May 062024 8:44am Essential hypertension chronic 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 2024 8:44am Nonrheumatic mitral (valve) insufficiency chronic May 25, 2024 8:44am Paroxysmal atrial fibrillation chron ic May 25, 2024 8:44am Essential hypertension chronic Ma y 2024 12:51pm retirement current use of 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 chronic July 10, 2024 12 :51pm Paroxysmal atrial fibrillation chron ic July 10, 2024 12:51pm Biochemically recurrent castration-sensitive adenocarcinoma of prostate acute July 102024 1:59pm Dyspnea on exertion acute July 062024 8:39am On amiodarone therapy acute August 01, 2024 8:39am Essential hypertension chronic Ma y 2024 8:39am retirement current use of 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 chronic August 01, 2024 8 :39am Paroxysmal atrial fibrillation chron ic August 01, 2024 8:39am [facility] Work Phone: 1(571) 448-717609-24-2024 History of Present illness Narrative* Maurice Fulton MD - 11/29/2023 9:15 AM EDT [facility] Cardiology Note Chief Complaint: Chief Complaint Patient presents with New Patient PAF History of Present Illness: Ramiro Lala is a 73 y.o. male presenting for evaluation of paroxysmal atrial fibrillation. Very pleasant gentleman with history of newly treated sleep apnea for about 2 weeks in the setting of hypertension and obesity. He was discovered to have atrial fibrillation fairly randomly and was asymptomatic initially. Records from the [facility] are reviewed. A Holter monitor from the summerderated shortness of breath and fatigue during sinus rhythm at normal rates. ECGs are available of atrial fibrillation as well dated 12 January 2023 with a ventricular response of 82 bpm. LV function is normal, no significant valvular disease is seen in reviewing these records and cardiac catheterization demonstrated mild coronary artery disease. In just 2 weeks of treatment of his sleep apnea, he has noted increase in energy overall and feels a bit better. His can also see this in him. He has recently gained about 50 pounds. He believes the last time he had atrial fibrillation is potentially about 6 months ago. Past Medical History: Past Medical History: Diagnosis Date Adenocarcinoma (HCC) Atrial fibrillation (HCC) Benign prostatic hyperplasia with lower urinary tract symptoms Cancer (CMS/HCC) (HCC) Chronic cough Elevated PSA Essential hypertension Hearing aid worn Hematuria, gross History of echocardiogram History of Holter monitoring History of left heart catheterization (LHC) History of stress test Leg cramps Migraine headache New onset atrial fibrillation (HCC) Nocturia Nonrheumatic mitral (valve) insufficiency Prostate disease SOB (shortness of breath) Syncope Past Surgical History Past Surgical History: Procedure Laterality Date CATARACT EXTRACTION COLONOSCOPY CYSTOSCOPY HAND SURGERY PROSTATECTOMY Hx of radical prostatectomy TONSILLECTOMY AND ADENOIDECTOMY (HISTORICAL) UMBILICAL HERNIA REPAIR VASECTOMY Family History Family History Problem Relation Name Age of Onset Hypertension Mother Cancer Mother Hypertension Father Social History Social History Tobacco Use Smoking status: Never Smokeless tobacco: Never Allergies: No Known Allergies Medications: Current Outpatient Medications: amLODIPine (Norvasc) 10 MG tablet, Take 10 mg by mouth daily., Disp: , Rfl: apixaban (Eliquis) 5 MG tablet, Take 5 mg by mouth 2 times daily., Disp: , Rfl: cetirizine (ZyrTEC) 10 MG tablet, Take 10 mg by mouth Daily as needed., Disp: , Rfl: furosemide (Lasix) 40 MG tablet, Take 40 mg by mouth daily. 4-5 days a week, Disp: , Rfl: metoprolol tartrate (Lopressor) 25 MG tablet, Take 25 mg by mouth 2 times daily., Disp: , Rfl: Multiple Vitamins-Minerals (multivitamin with minerals) tablet, Take 1 tablet by mouth daily., Disp: , Rfl: oxybutynin XL (Ditropan-XL) 10 MG 24 hr tablet, Take 10 mg by mouth daily. Do not crush, chew, or split., Disp: , Rfl: Review of Systems: Review of Systems Constitutional: Positive for fatigue. Negative for activity change, chills, diaphoresis and fever. HENT: Negative. Negative for nosebleeds and trouble swallowing. Eyes: Negative. Negative for discharge and visual disturbance. Respiratory: Positive for shortness of breath. Negative for apnea, cough, chest tightness and wheezing. Cardiovascular: Positive for palpitations. Negative for chest pain and leg swelling. Gastrointestinal: Negative. Negative for abdominal distention, abdominal pain, blood in stool, diarrhea, nausea and vomiting. Endocrine: Negative. Negative for cold intolerance and heat intolerance. Genitourinary: Negative. Negative for hematuria. Musculoskeletal: Negative. Negative for gait problem and myalgias. Skin: Negative. Negative for color change and rash. Neurological: Negative. Negative for dizziness, seizures, syncope, facial asymmetry, speech difficulty, weakness, light-headedness, numbness and headaches. Hematological: Negative. Does not bruise/bleed easily. Psychiatric/Behavioral: Negative. Negative for dysphoric mood. Physical Examination: Vitals: Vitals: 11/29/23 0844 BP: 116/60 BP Location: Right arm Patient Position: Sitting BP Cuff Size: Adult Pulse: 61 SpO2: 94% Weight: 271 lb (123 kg) Height: 6' (1.829 m) Body mass index is 36.75 kg/m . Physical Exam Vitals reviewed. Constitutional: Appearance: Normal appearance. HENT: Head: Normocephalic. Right Ear: External ear normal. Left Ear: External ear normal. Nose: Nose normal. Mouth/Throat: Mouth: Mucous membranes are moist. Eyes: Pupils: Pupils are equal, round, and reactive to light. Cardiovascular: Rate and Rhythm: Normal rate and regular rhythm. Heart sounds: No murmur heard. Pulmonary: Effort: No respiratory distress. Musculoskeletal: General: Normal range of motion. Right lower leg: No edema. Left lower leg: No edema. Skin: General: Skin is warm and dry. Coloration: Skin is not jaundiced. Neurological: General: No focal deficit present. Mental Status: He is alert. Motor: No weakness. Psychiatric: Mood and Affect: Mood normal. Behavior: Behavior normal. Thought Content: Thought content normal. Judgment: Judgment normal. Laboratory Tests: No results found for: WBC, HGB, HCT, MCV, PLT No results found for: GLUCOSE, CALCIUM, NA, K, CO2, CL, BUN, CREATININE @LASTCMP@ No results found for: CHLPL, CHOL No results found for: TRIG No results found for: HDL No results found for: LDLCALC Assessment and Plan: Atrial fibrillation: Paroxysmal with a low burden occurring in the setting of hypertension obesity sleep apnea and a structurally normal heart. At this point though we discussed antiarrhythmic drug and ablative therapy I recommend primarily to be aggressive as he is doing with treatment of the sleep apnea and also weight loss. There is likely no greater impact on his paroxysms of atrial fibrillation at this point than those 2 things. He is already noticed treatment with sleep apnea has improved his overall sense of wellbeing and energy. This will likely give him motivation to lose the 50 pounds that he has gained. He should continue anticoagulation with apixaban 5 mg twice daily and the low-dose metoprolol 25 mg twice daily. Hypertension: Under good control on amlodipine 10. With weight loss he might require less antihypertensives. If his atrial fibrillation burden increases despite these measures, would then recommend suppression, and ablative therapy would be my first choice if he is lost weight still is suffering from the atrial fibrillation. documented in this [facility]09-18-2023 Note* Exam Date Time Procedure Performing Provider Status 11/22/22 7:40 AM Echocardiogram, Adult ([facility]) Auth (Verified) [facility] 03-15-2023 Evaluation + Plan noteExtracted from: Title:Clinical Document Author:LAURIE QUINONES ate:05/19/22 [place] ADMISSION HISTORY AN D PHYSICIAL CHIEF COMPLAINT: Personal history of colon polyps HISTORY OF PRESENT ILLNESS: Personal history of colon polyps, last colonoscopy 3 to 4 years ago REVIEW OF SYSTEMS: Constitutional: denies weight loss Cardiovascular:denies chest pain, palpitations Respiratory:denies shortness of breath Gastrointestinal:no abd pain Musculoskeletal: no arthralgias Skin: no rashes . ACTIVE PROBLEMS: (15) Anticoagulated (425863931) Atrial fibrillation (09467440) BMI 34.0-34.9,adult (196829087) Colon polyp (965396298) Cough syncope (617140136) retirement current use of antithrombotics/antiplatelets (037297209) Non-tobacco user (525382067) Obese (3893599611) Post-viral cough syndrome (8301177728) Prostate cancer (4091150141) Prostate mass (781591086) Screening for colon cancer (313747828) Screening for diabetes mellitus (409725365) Screening for ischemic heart disease (640900318) Screening for osteoporosis (897441893) MEDICATIONS: Active Inpt Meds: None Active PRN [...] for 4 days prior to the procedure [facility] 03-15-2023 Hospital Discharge instructions Patient Education 05/19/2022 [...] before eating solid foods. General instructions Take ikig-pze-ensunct and prescription medicines only as told by [...] 06/13/2016 Document Revised: 05/22/2018 Document Reviewed: 06/13/2016 [email or web address] Patient Education 2020 [employer]. 05/19/2022 08:47:53 Colonoscopy, Adult, Care After, Gfid-uk-Hyck Colonoscopy, Adult, Care After This sheet gives [...] are soft and easy to digest. Take mvrc-kgl-levvwhu or prescription medicines only as told by [...] 03/26/2011 Document Revised: 12/22/2017 Document Reviewed: 11/15/2016 [email or web address] Patient Education [employer] Follow Up Care 05/12/2022 14:43:57 With:AISSATOU TRUJILLO Address: [address] [place] [address] [address] [facility] [place] [address]- [phone] When: Unknown [facility] 03-15-2023 Anesthesiology Consult note Patient: RAMIRO LALA [...] by AISHWARYA WATKINS on 05/19/2022 09:18 AM [facility]03-15-2023 Summary of episode note Discharge Instructions Thank you for allowing [facility] to assist you with your healthcare needs. The following is importantdischarge information regarding your hospital visit. Your Care Team AISSATOU TRUJILLO What to do next Instructions From Your Doctor Resume Eliquis today Follow Up Appointments Follow Up with AISSATOU TRUJILLO When Where: [address] [facility] [place] [address]- [phone] The Following Activity and Diet Have Been Ordered for You Discharge Activity - Ordered -- Driving Restricted, No driving until tomorrow, 05/19/22 8:39:00 EDT Discharge Return to Work, School, or Sports - Ordered -- May return to: work, 05/19/22 8:39:00 EDT Discharge Diet - Ordered -- Type of Diet: Regular Diet, 05/19/22 8:39:00 EDT Allergies NKA Medications Please ask [...] before eating solid foods. General instructions Take llpf-ucd-nuexquv and prescription medicines only as told by [...] 06/13/2016 Document Revised: 05/22/2018 Document Reviewed: 06/13/2016 [email or web address] Patient Education 2020 [email or web address] Colonoscopy, Adult, Care After This sheet gives [...] are soft and easy to digest. Take rask-zmx-ntipafa or prescription medicines only as told by [...] 03/26/2011 Document Revised: 12/22/2017 Document Reviewed: 11/15/2016 [employer] Patient Education 2020 [employer]. Additional Information VACCINATE! IT SAVES LIVES! Members of the community who have not yet received the COVID-19 vaccine and would like to receive it can visit one of [facility] vaccine clinics. There are many vaccine clinic locations within the [facility]. For locations and available times, please visit [email or web address] It is important to note that some COVID mobile vaccine clinics are held outdoors and may be canceled in rainy or stormy conditions. To learn more about pediatric vaccinations (ages 5-11), we invite you to visit the [facility] webpage. [email or web address] learn more about the COVID-19 vaccine, we invite you to visit the CDC website for a list of frequently asked questions. https://www.cdc.gov/coronavirus/2019-ncov/vaccines/faq.html [place] [facility] Patient Portal Access Instructions: Stay connected with your healthcare team and access your personal medical information anytime with the [facility] Patient Portal.If you would like a full copy of your medical records, please contact the [facility] Medical Records Department, Tuesday through Tuesday between 8a.m. and 4:30p.m. Please follow the directions below to access the portal: 1.Access the email account you provided upon registration to the [facility].2.Look for an invitation email from [facility].3.Open the email and access the invitation link: Accept Invitation to [facility]4.Fill in the required amaya to create your account. Sign into www.[employer] with your username and password that you [...] you will allow to register on the [employer] Patient Portal for access to your information. You can also access the [facility] Patient Portal on the [employer] ([employer]). Simply click on Health Records under Clinical Insight and then click on the [employer] logo. HOW TO SAFELY DISPOSE OF PRESCRIPTION [...] Call your local pharmacy or go to [email or web address] to find one close to you.3.Make use of household items: Use cat litter or old coffee grounds to dispose medications if other options arenot available. Mix your drugs with these household products, seal them in an airtight container andthrow it into the garbage. Call [facility]: [phone] to be sure your drugs can be [...] Care, Care After Colonoscopy, Adult, Care After, [facility] Medication Leaflets My discharge plan and instructions have been reviewed and explained to me and I,RAMIRO LALA understand my current condition and have read and understand these discharge instructions. I have received a written copy of the plan/instructions. If I have questions, I am aware that I should contact my doctor. 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 Signature: Date/Time: Relationship to Patient: Witness Name/Signature: Date/Time: [facility]03-15-2023 Anesthesiology Consult note Patient: RAMIRO LALA Age: [...] list: Medical Atrial fibrillation / SNOMED CT 26771490 / Confirmed BMI 34.0-34.9,adult / SNOMED CT 808698854 / Confirmed Anticoagulated / SNOMED CT 852089009 / Confirmed Prostate cancer / SNOMED CT 4817827534 / Confirmed Obese / SNOMED CT 6241387455 / Confirmed Screening for ischemic heart disease / SNOMED CT 859800735 / Confirmed Screening for diabetes mellitus / SNOMED CT 919459623 / Confirmed Screening for osteoporosis / SNOMED CT 378926120 / Confirmed Screening for colon cancer / SNOMED CT 644066089 / 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 / SNOMED CT 529438586 / Confirmed Colon polyp / SNOMED CT 923224872 / Confirmed Post-viral cough syndrome / SNOMED CT 9013947062 / Confirmed Prostate mass / SNOMED CT 573323202 / Confirmed Non-tobacco user / SNOMED CT 930009627 / Confirmed Cough syncope / SNOMED CT 943545399 / Confirmed, Active Problems (15) Anticoagulated Atrial fibrillation BMI 34.0-34.9,adult Colon polyp Cough syncope 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 Vasectomy (27402144). Hand (067542178). Comments: 09/23/2021 17:24 AMBERT WINIFRED Smith left hand I&D Cardiac catheterization (65631862). Hernia (180999109). Comments: 09/23/2021 17:23 WINIFRED Cantu umbilical Tonsillectomy (292633361). Social History Social & Psychosocial Habits Alcohol [...] data available , Lab results: 05/19/2022 7:[address] [facility] History and Physical . Assessment and Plan [place] [employer] Anesthesiologists (ASA) physical status classification: Class III. Anesthetic Preoperative Plan Premedication: None. Anesthetic technique: MAC. Induction: intravenously. Postoperative pain management: Per surgeon. Risks discussed: nausea, vomiting, headache, sore throat, dental injury, hypotension, allergic reaction, serious complications. Informed consent: signed by patient. Digitally Signed by AISHWARYA WATKINS on 05/19/2022 08:37 AM [facility]03-15-2023 Note [place] ADMISSION HISTORY AND PHYSICIAL CHIEF COMPLAINT: Personal history of colon polyps HISTORY OF PRESENT ILLNESS: Personal history of colon polyps, last colonoscopy 3 to 4 years ago REVIEW OF SYSTEMS: Constitutional: denies weight loss Cardiovascular:denies chest pain, palpitations Respiratory:denies shortness of breath Gastrointestinal:no abd pain Musculoskeletal: no arthralgias Skin: no rashes . ACTIVE PROBLEMS: (15) Anticoagulated (620025786) Atrial fibrillation (18223101) BMI 34.0-34.9,adult (696376670) Colon polyp (137020056) Cough syncope (341673198) retirement current use of antithrombotics/antiplatelets (379693845) Non-tobacco user (147136510) Obese (5423225810) Post-viral cough syndrome (6344793556) Prostate cancer (8298776144) Prostate mass (619406048) Screening for colon cancer (943504148) Screening for diabetes mellitus (556706644) Screening for ischemic heart disease (553672507) Screening for osteoporosis (927534854) MEDICATIONS: Active Inpt Meds: None Active PRN [...] LAURIE QUINONES DO on 05/19/2022 07:19 AM [facility]07-27-2022 SARS-CoV-2 (COVID-19) RNA AYLIN+probe Ql (Nph)Negative (09/30/21 12:00 PM)AO Auto Urine SSEvaluation + Plan note No data available for this section [facility] Evaluation noteNo assessment information available [facility] Work Phone: Evaluation note* Diagnosis Onset Date Resolution Status Asymptomatic PVCs acute Essential hypertension acute New onset atrial fibrillation acute Preoperative cardiovascular examination acute [facility] Work Phone: Evaluation note* Diagnosis Onset Date Resolution Status New onset atrial fibrillation acute Preoperative cardiovascular examination acute Asymptomatic PVCs chronic Essential hypertension chron ic Asymptomatic PVCs chronic Essential hypertension chron ic Paroxysmal atrial fibrillation chronic [facility] Work Phone: Evaluation note* Diagnosis Onset Date Resolution Status 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 Asymptomatic PVCs chronic Essential hypertension chron ic Paroxysmal atrial fibrillation chronic 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 [facility] Work Phone: Evaluation note* Diagnosis Onset Date Resolution Status 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 Asymptomatic PVCs chronic Essential hypertension chron ic Paroxysmal atrial fibrillation chronic 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 [facility] Work Phone: Evaluation note* Diagnosis Onset Date Resolution Status Asymptomatic PVCs chronic Essential hypertension chron ic Paroxysmal atrial fibrillation chronic 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 [facility] Work Phone: Evaluation note* Diagnosis Onset Date Resolution Status Asymptomatic PVCs chronic Essential hypertension chron ic Paroxysmal atrial fibrillation chronic 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 Encounter for education acut e Malignant neoplasm of prostate acute [facility] Work Phone: Evaluation note* Diagnosis Onset Date Resolution Status 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 Encounter for education acut e Malignant neoplasm of prostate acute [facility] Work Phone: Evaluation note* Diagnosis Onset Date Resolution Status Hypersomnolence acute Asymptomatic PVCs chronic Essential hypertension chron ic Nonrheumatic mitral (valve) insufficiency chronic Paroxysmal atrial fibrillation chronic [facility] Work Phone: Evaluation note* Diagnosis Onset Date Resolution Status Lipoma of face acute Mass of face acute 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 [facility] Work Phone: Evaluation note* Diagnosis Onset Date Resolution Status 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 [facility] Work Phone: Evaluation note* Diagnosis Paroxysmal atrial fibrillation (HCC) Atrial [facility] No data available for this section [facility] Discharge instructions Additional Instructions Implant Used?: Yes [facility]: Progress note No data available for this section [facility] Reason for referral (narrative)No reason for referral [facility] Work [facility]: Summary Purpose Family History No Family History Records Found Relationship Condition Age at Onset Recorded Date/T celia mother Hypertension Unknown Malignant neoplasm Unknown father Hypertension Unknown Advance Directives No Advanced Directives Records Found Advance Directive Response Recorded Date/ Time Advance Directives No June 22, 2 016 2:58pm Living Will No June 23, 2015 2:58pm Power of Senior Patient Account Representative No June 22 2:58pm Advance Directive Response Recorded Date/ Time Advance Directives No June 22, 2 016 2:58pm Living Will Yes September 16, 2021 2:24pm Power of Senior Patient Account Representative Yes September 16 2:24pm Advance Directive Response Recorded Date/ Time Name of Medical Power of Senior Patient Account Representative SPOUSE September 16, 2021 2:24pm Advance Directives No June 22, 2 016 2:58pm Living Will Yes September 16, 2021 2:24pm Power of Senior Patient Account Representative Yes September 16 2:24pm Advance Directive Response Recorded Date/ Time Name of Medical Power of Senior Patient Account Representative SPOUSE September 16, 2021 2:24pm Name of Medical Power of Senior Patient Account Representative Mitzi saba December 18, 2021 4:13pm Advance Directives No June 22, 2 016 2:58pm Living Will Yes December 18 4:13pm Power of Senior Patient Account Representative Yes December 18, 2021 4:13pm Advance Directive Response Recorded Date/ Time Advance Directives No June 22, 2 016 1:58pm Living Will Yes December 18 3:13pm Power of Senior Patient Account Representative Yes December 18, 2021 3:13pm Name of Medical Power of Senior Patient Account Representative Mitzi saba December 18, 2021 3:13pm Advance Directive Response Recorded Date/ Time Advance Directives No June 22, 2 016 2:58pm Living Will Yes December 18 4:13pm Power of Senior Patient Account Representative Yes December 18, 2021 4:13pm Advance Directive Response Recorded Date/ Time Advance Directives No June 22, 2 016 1:58pm Living Will Yes December 18 3:13pm Power of Senior Patient Account Representative Yes December 18, 2021 3:13pm Advance Directive Response Recorded Date/ Time Name of Medical Power of Senior Patient Account Representative Karly mcnulty March 03, 2023 10:30am Advance Directives No June 22 2 016 1:58pm Living Will Yes March 03 10:30am Power of Senior Patient Account Representative Yes March 03, 2023 10:30am Name of Medical Power of Senior Patient Account Representative KARLY CORTEZ LY January 11, 2023 11:24am Advance Directive Response Recorded Date/ Time Advance Directives No June 22 016 2:58pm Living Will Yes March 03 11:30am Power of Senior Patient Account Representative Yes March 03, 2023 11:30am Advance Directive Response Recorded Date/ Time Living Will Yes March 03 11:30am Do you have a Healthcare Power of Senior Patient Account Representative? Yes March 03, 2023 11:30am Advance Directives No June 22 016 2:58pm Advance Directive Response Recorded Date/ Time Living Will Yes March 03 11:30am Do you have a Healthcare Power of Senior Patient Account Representative? Yes March 03, 2023 11:30am Living Will No June 21, 2024 9:33am Do you have a Healthcare Power of Senior Patient Account Representative? No June 21, 2024 9:33am Advance Directives No June 22 016 2:58pm Chief Complaint and Reason for Visit Chief Complaint ELEVATED PSA, NEGATI VE PROSTATE BIOPSY Chief Complaint ELEVATED PSA, NEGATI VE PROSTATE BIOPSY PROSTATE CANCER Chief Complaint ELEVATED PSA, NEGATI VE PROSTATE BIOPSY PROSTATE CANCER PRE-OP/REF. KEVIN PREOP, ABN EKG, NEW ONSET A-FIB Reason for Visit Asymptomatic PVCs Essential hypertension New onset atrial fibrillation Preoperative cardiovascular examination Chief Complaint ELEVATED PSA, NEGATI VE PROSTATE BIOPSY PROSTATE CANCER PREOP, ABN EKG, NEW ONSET A-FIB LAP ROBOTIC RADICAL PROSTATECTOMY NERVE MONITORING PRE-OP/REF. KEVIN PREOP, ABN EKG, NEW ONSET A-FIB PAF; PVC'S; PRE-OP PAF; PVC'S; PRE-OP Reason for Visit Asymptomatic PVCs Essential hypertension New onset atrial fibrillation Preoperative cardiovascular examination Chief Complaint ELEVATED PSA, NEGATI VE PROSTATE BIOPSY PROSTATE CANCER PREOP, ABN EKG, NEW ONSET A-FIB LAP ROBOTIC RADICAL PROSTATECTOMY NERVE MONITORING PRE-OP/REF. KEVIN PREOP, ABN EKG, NEW ONSET A-FIB PREOP, ABN EKG, NEW ONSET A-FIB PAF; PVC'S; PRE-OP PAF; PVC'S; PRE-OP 6 WK FU Reason for Visit New onset atrial fib rillation Preoperative cardiovascular examination Asymptomatic PVCs Essential hypertension Asymptomatic PVCs Essential hypertension Paroxysmal atrial fibrillation Chief Complaint PROSTATE CANCER PREOP, ABN EKG, NEW ONSET A-FIB LAP ROBOTIC RADICAL PROSTATECTOMY NERVE MONITORING PRE-OP/REF. KEVIN PREOP, ABN EKG, NEW ONSET A-FIB PREOP, ABN EKG, NEW ONSET A-FIB PAF; PVC'S; PRE-OP PAF; PVC'S; PRE-OP 6 WK FU LAP ROBOTIC RADICAL PROSTATECTOMY, NERVE MONITORIN Reason for Visit New onset atrial fib rillation Preoperative cardiovascular examination Asymptomatic PVCs Essential hypertension Asymptomatic PVCs Essential hypertension Paroxysmal atrial fibrillation Chief Complaint LAP ROBOTIC RADICAL PROSTATECTOMY, NERVE MONITORIN Chief Complaint CONSULT - PROSTATE discuss PET from 04/20 6 M FU EORDER OTV MALIGNANT NEOPLASM OF PROSTATE Reason for Visit Biochemically recurr ent castration-sensitive adenocarcinoma of prostate Biochemically recurrent castration-sensitive adenocarcinoma of prostate Asymptomatic PVCs Essential hypertension Paroxysmal atrial fibrillation Biochemically recurrent castration-sensitive adenocarcinoma of prostate Chief Complaint CONSULT - PROSTATE discuss PET from 04/20 6 M FU EORDER OTV OTV OTV OTV OTV OTV OTV MALIGNANT NEOPLASM OF PROSTATE *FNA* Reason for Visit Biochemically recurr ent castration-sensitive adenocarcinoma of prostate Biochemically recurrent castration-sensitive adenocarcinoma of prostate Asymptomatic PVCs Essential hypertension Paroxysmal atrial fibrillation 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 adenocarcinoma of prostate Chief Complaint 6 M FU EORDER OTV OTV OTV OTV OTV OTV OTV MALIGNANT NEOPLASM OF PROSTATE *FNA* Localized swelling, mass and lump, neck Reason for Visit Asymptomatic PVCs Essential hypertension Paroxysmal atrial fibrillation 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 adenocarcinoma of prostate Chief Complaint 6 M FU EORDER OTV OTV OTV OTV OTV OTV OTV MALIGNANT NEOPLASM OF PROSTATE *FNA* Localized swelling, mass and lump, neck SCP E ORDERS PAROXYSMAL ATRIAL FIBRILLATION Reason for Visit Asymptomatic PVCs Essential hypertension Paroxysmal atrial fibrillation 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 adenocarcinoma of prostate Encounter for education Malignant neoplasm of prostate Chief Complaint 6 M FU EORDER OTV OTV OTV OTV OTV OTV OTV MALIGNANT NEOPLASM OF PROSTATE *FNA* Localized swelling, mass and lump, neck SCP E ORDERS PAROXYSMAL ATRIAL FIBRILLATION Amb Documentation Reason for Visit Asymptomatic PVCs Essential hypertension Paroxysmal atrial fibrillation 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 adenocarcinoma of prostate Encounter for education Malignant neoplasm of prostate Chief Complaint OTV OTV OTV OTV OTV OTV MALIGNANT NEOPLASM OF PROSTATE *FNA* Localized swelling, mass and lump, neck SCP E ORDERS PAROXYSMAL ATRIAL FIBRILLATION Amb Documentation Reason for Visit Biochemically recurr ent castration-sensitive adenocarcinoma of prostate 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 adenocarcinoma of prostate Encounter for education Malignant neoplasm of prostate Chief Complaint 6 m fu (WILL EST W C SO IN JULY 2023) Amb Documentation Reason for Visit Hypersomnolence Asymptomatic PVCs Essential hypertension Nonrheumatic mitral (valve) insufficiency Paroxysmal atrial fibrillation Chief Complaint PREOP Excision, Mass 6 MONTH PROSTATE WATKINS Paroxysmal atrial fibrillation Reason for Visit Lipoma of face Mass of face Biochemically recurrent castration-sensitive adenocarcinoma of prostate Chief Complaint Paroxysmal atrial fi brillation Amb Documentation NEED LAB ORDER 5 MONTH F/U PROSTATE, PSA PRIOR Reason for Visit Biochemically recurr ent castration-sensitive adenocarcinoma of prostate Chief Complaint PREOP Excision, Mass 6 MONTH PROSTATE WATKINS Reason for Visit Lipoma of face Mass of face Biochemically recurrent castration-sensitive adenocarcinoma of prostate Chief Complaint Admit Date 6 M FU May 25, 2024 8:4 4am PAF *KIM TO READ* June 06, 2024 11:3 5am Reason for Visit Admit Date ERNESTO (obstructive sleep apnea) May 8:44am Asymptomatic PVCs May 25, 2024 8:4 4am Essential hypertension May 25, 2024 8:44am Nonrheumatic mitral (valve) insufficienc y May 25, 2024 8:44am Paroxysmal atrial fibrillation May 8:44am Chief Complaint Admit Date 6 M FU May 25, 2024 8:4 4am PAF *KIM TO READ* June 06, 2024 11:3 5am PAF June 06, 2024 11:5 7am low heart rate June 21, 2024 9:2 4am Chief Complaint Admit Date 6 M FU May 25, 2024 8:4 4am PAF *KIM TO READ* June 06, 2024 11:3 5am PAF June 06, 2024 11:5 7am low heart rate June 21, 2024 9:2 4am 1 WEEK MED CHANGE June 25, 2024 10: 13am E ORDER July 06, 2024 8:26am Medication Changes/See Note July 10 12:51pm 6 MONTH PROSTATE July 10, 2024 1:59pm 1 M FU/Needs EKG August 01, 2024 8:39a m Reason for Visit Admit Date ERNESTO (obstructive sleep apnea) May 8:44am Asymptomatic PVCs May 25, 2024 8:4 4am Essential hypertension May 25, 2024 8:44am Nonrheumatic mitral (valve) insufficienc y May 25, 2024 8:44am Paroxysmal atrial fibrillation May 8:44am Essential hypertension July 10, 2024 12: 51pm retirement current use of 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 M ay 2024 12:51pm Paroxysmal atrial fibrillation July 10, 2024 12:51pm 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 July 10, 2024 1:59pm Essential hypertension August 01, 2024 8: 39am retirement current use of 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 M ay 2024 8:39am Paroxysmal atrial fibrillation August 01, 2024 8:39am Chief Complaint Admit Date 6 M FU May 25, 2024 8:4 4am PAF *KIM TO READ* June 06, 2024 11:3 5am PAF June 06, 2024 11:5 7am low heart rate June 21, 2024 9:2 4am 1 WEEK MED CHANGE June 25, 2024 10: 13am E ORDER July 06, 2024 8:26am Medication Changes/See Note July 10 12:51pm 6 MONTH PROSTATE July 10, 2024 1:59pm 1 M FU/Needs EKG August 01, 2024 8:39a m AFIB August 21, 2024 7:55 am Reason for Visit Admit Date ERNESTO (obstructive sleep apnea) May 8:44am Asymptomatic PVCs May 25, 2024 8:4 4am Essential hypertension May 25, 2024 8:44am Nonrheumatic mitral (valve) insufficienc y May 25, 2024 8:44am Paroxysmal atrial fibrillation May 8:44am Essential hypertension July 10, 2024 12: 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 12:51pm Paroxysmal atrial fibrillation July 10, 2024 12:51pm 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 July 10, 2024 1:59pm Dyspnea on exertion August 01, 2024 8:39a m On amiodarone therapy August 01, 2024 8:3 9am Essential hypertension August 01, 2024 8: 39am 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 8:39am Paroxysmal atrial fibrillation August 01, 2024 8:39am Additional Source Comments (unrecognized sect ion and content) No Status Records FoundNo Status Records FoundNo Status Records FoundNo Status Records FoundNo Status Records Found INFORMATION SOURCE (unrecogn ized section and content) DATE CREATED AUTHOR 07/07/2020 [facility] DATE CREATED AUTHOR AUTHOR'S ORGANIZ ATION 02/08/2023 [facility] ([place]) DATE CREATED AUTHOR AUTHOR'S ORGANIZ ATION 12/01/2023 [facility] DATE CREATED AUTHOR AUTHOR'S ORGANIZ ATION 06/18/2024 [facility] DATE CREATED AUTHOR AUTHOR'S ORGANIZ ATION 09/24/2024 [facility] Goals (unrecognized section and content) Goals may be documented in a n alternate sectionGoals may be documented in an alternate sectionGoals may be documented in an alternate section No data available for this sectionGoals may be documented in an alternate section No data available for this sectionGoals may be documented in an alternate sectionGoals may be documented in an alternate sectionGoals may be documented in an alternate section No data available for this sectionGoals may be documented in an alternate sectionGoals may be documented in an alternate sectionGoals may be documented in an alternate sectionGoals may be documented in an alternate sectionGoals may be documented in an alternate section No data available for this sectionGoals may be documented in an alternate section No data available for this section No data available for this sectionGoals may be documented in an alternate sectionGoals may be documented in an alternate section No data available for this sectionGoals may be documented in an alternate sectionGoals may be documented in an alternate sectionGoals may be documented in an alternate sectionGoals may be documented in an alternate section Care Team (unrecognized sect ion and content) Team Status: Active Member Role Status Dates Dr. Hussein Singh MD Family Provider Active Aissatou Trujillo FENCE SUPERVISOR, FENCE SUPERVISOR-C Primary Care Provider Active Team Status: Inactive Member Role Status Dates Aissatou Trujillo NP, FENCE SUPERVISOR-C Primary Care Provider Active Dr. Aneudy Santiago MD Admit Provid er, Attending Provider, Referring Provider Active Team Status: Inactive Member Role Status Dates Aissatou Trujillo NP, FENCE SUPERVISOR-C Primary Care Provider Active Dr. Aneudy Santiago MD Attending Provider, Referr ing Provider Active Team Status: Inactive Member Role Status Dates Aissatou Trujillo FENCE SUPERVISOR, FENCE SUPERVISOR-C Primary Care Provider, Referri ng Provider Active Yvon Yang FENCE SUPERVISOR, FENCE SUPERVISOR-C Attending Provider Active Team Status: Inactive Member Role Status Dates Aissatou Trujillo FENCE SUPERVISOR, FENCE SUPERVISOR-C Primary Care Provider Active Dr. Yoav Olivares DO Attending Provider Active Dr. Aneudy Santiago MD Referring Provider Active Team Status: Inactive Member Role Status Dates iAssatou Trujillo FENCE SUPERVISOR, FENCE SUPERVISOR-C Primary Care Provider, Referri ng Provider Active Dr. Yoav Olivares DO Attending Provider Active Team Status: Active Member Role Status Dates Aissatou Trujillo FENCE SUPERVISOR, FENCE SUPERVISOR-C Primary Care Provider Active Dr. Yoav Olivares DO Attending Provider, Referring P rovider Active Team Status: Inactive Member Role Status Dates Aissatou Trujillo FENCE SUPERVISOR, FENCE SUPERVISOR-C Primary Care Provider Active Yvon Yang FENCE SUPERVISOR, FENCE SUPERVISOR-C Attending Provider, Referring Pro vider Active Team Status: Inactive Member Role Status Dates Aissatou Trujillo FENCE SUPERVISOR, FENCE SUPERVISOR-C Primary Care Provider Active Dr. Yoav Olivares DO Attending Provider, Referring P rovider Active Team Status: Inactive Member Role Status Dates Aissatou Trujillo FENCE SUPERVISOR, FENCE SUPERVISOR-C Primary Care Provider Active Dr. Ramiro Chang MD Active Dr. Yoav Olivares DO Attending Provider, Referring P rovider Active Team Status: Inactive Member Role Status Dates Aissatou Trujillo FENCE SUPERVISOR, FENCE SUPERVISOR-C Primary Care Provider Active Dr. Beto Huizar MD Attending Provider, Refe rring Provider Active Team Status: Inactive Member Role Status Dates Aissatou Trujillo FENCE SUPERVISOR, FENCE SUPERVISOR-C Primary Care Provider, Referri ng Provider Active Urmila New FENCE SUPERVISOR, FENCE SUPERVISOR-C Attending Provider Active Team Status: Active Member Role Status Dates Aissatou Trujillo FENCE SUPERVISOR, FENCE SUPERVISOR-C Primary Care Provider Active Yvon Yang FENCE SUPERVISOR, FENCE SUPERVISOR-C Attending Provider, Referring Pro vider Active Team Status: Active Member Role Status Dates Aissatou Trujillo FENCE SUPERVISOR, FENCE SUPERVISOR-C Primary Care Provider Active Yvon Yang FENCE SUPERVISOR, FENCE SUPERVISOR-C Attending Provider Active Team Status: Inactive Member Role Status Dates Aissatou Trujillo FENCE SUPERVISOR, FENCE SUPERVISOR-C Primary Care Provider Active Daina Archibald , FENCE SUPERVISOR-C Attending Provider, Referrin g Provider Active Team Status: Inactive Member Role Status Dates Aissatou Trujillo FENCE SUPERVISOR, FENCE SUPERVISOR-C Primary Care Provider Active Dr. Aneudy Santiago MD Attending Provider Active Team Status: Inactive Member Role Status Dates Aissatou Trujillo FENCE SUPERVISOR, FENCE SUPERVISOR-C Primary Care Provider Active Dr. Yoav Olivares DO Attending Provider Active Team Status: Active Member Role Status Dates Aissatou Trujillo FENCE SUPERVISOR, FENCE SUPERVISOR-C Primary Care Provider Active Dr. Wagner Adkins MD Attending Provider Activ e Dr. Beto Huizar MD Referring Provider Activ e Team Status: Inactive Member Role Status Dates Aissatou Trujillo FENCE SUPERVISOR, FENCE SUPERVISOR-C Primary Care Provider Active Dr. Luis Pringle MD Attending Provider, Emergency Provider Active Team Status: Inactive Member Role Status Dates Aissatou Trujillo FENCE SUPERVISOR, FENCE SUPERVISOR-C Primary Care Provider Active Dr. Yoav Olivares DO Attending Provider, Referring P archana Active Dr. Aneudy Santiago MD Other Provider Active Team Status: Active Member Role Status Dates Aissatou Trujillo FENCE SUPERVISOR, FENCE SUPERVISOR-C Primary Care Provider Active Team Status: Inactive Member Role Status Dates Aissatou Trujillo FENCE SUPERVISOR, FENCE SUPERVISOR-C Primary Care Provider Active Start: April 17, 2024 End: April 17, 2024 Ling Rye Attending Provider Active Start : April 17, 2024 End: April 17, 2024 Ling Rye Referring Provider Active Start : April 17, 2024 End: April 17, 2024 Team Status: Inactive Member Role Status Dates Aissatou Trujillo FENCE SUPERVISOR, FENCE SUPERVISOR-C Primary Care Provider Active Start: May 25, 2024 End: May 25, 2024 Aissatou Trujillo FENCE SUPERVISOR, FENCE SUPERVISOR-C Referring Provider Active Start: May 25, 2024 End: May 25, 2024 Marsha Templeton PA, PA Attending Provider Active Start: May 25, 2024 End: May 25, 2024 Team Status: Inactive Member Role Status Dates Aissatou Trujillo FENCE SUPERVISOR, FENCE SUPERVISOR-C Primary Care Provider Active Start: June 06, 2024 End: June 06, 2024 Marsha Templeton PA, PA Attending Provider Active Start: June 06, 2024 End: June 06, 2024 Marsha Templeton PA, PA Referring Provider Active Start: June 06, 2024 End: June 06, 2024 Team Status: Active Member Role Status Dates Aissatou Trujillo FENCE SUPERVISOR, FENCE SUPERVISOR-C Primary Care Provider Active Start: June 06, 2024 Dr. Momo Alvarez MD Attending Provider Active S tart: June 06, 2024 Marsha Templeton PA, PA Referring Provider Active Start: June 06, 2024 Team Status: Inactive Member Role Status Dates Aissatou Trujillo FENCE SUPERVISOR, FENCE SUPERVISOR-C Primary Care Provider Active Start: June 21, 2024 End: June 21, 2024 Dr. Carly Adams DO Emergency Provider Active S tart: June 21, 2024 End: June 21, 2024 Team Status: Inactive Member Role Status Dates Aissatou Trujillo FENCE SUPERVISOR, FENCE SUPERVISOR-C Primary Care Provider Active Start: June 21, 2024 End: June 21, 2024 Dr. Carly Adams , Attending Provider Active S tart: June 21, 2024 End: June 21, 2024 Dr. Carly Adams DO Emergency Provider Active S tart: June 21, 2024 End: June 21, 2024 Team Status: Inactive Member Role Status Dates Aissatou Trujillo FENCE SUPERVISOR, FENCE SUPERVISOR-C Primary Care Provider Active Start: June 25, 2024 End: June 25, 2024 Aissatou Trujillo FENCE SUPERVISOR, FENCE SUPERVISOR-C Referring Provider Active Start: June 25, 2024 End: June 25, 2024 Marsha Templeton PA, PA Attending Provider Active Start: June 25, 2024 End: June 25, 2024 Team Status: Inactive Member Role Status Dates Aissatou Trujillo FENCE SUPERVISOR, FENCE SUPERVISOR-C Primary Care Provider Active Start: July 06, 2024 End: July 06, 2024 Dr. Yoav Olivares DO Attending Provider Active Start: July 06, 2024 End: July 06, 2024 Dr. Yoav Olivares DO Referring Provider Active Start: July 06, 2024 End: July 06, 2024 Team Status: Inactive Member Role Status Dates Aissatou Trujillo FENCE SUPERVISOR, FENCE SUPERVISOR-C Primary Care Provider Active Start: July 10, 2024 End: July 10, 2024 Aissatou Trujillo FENCE SUPERVISOR, FENCE SUPERVISOR-C Referring Provider Active Start: July 10, 2024 End: July 10, 2024 JAZMÍN Sepulveda Attending Provider Active St art: July 10, 2024 End: July 10, 2024 Team Status: Inactive Member Role Status Dates Aissatou Trujillo FENCE SUPERVISOR, FENCE SUPERVISOR-C Primary Care Provider Active Start: July 10, 2024 End: July 10, 2024 Dr. Yoav Olivares DO Attending Provider Active Start: July 10, 2024 End: July 10, 2024 Team Status: Inactive Member Role Status Dates Aissatou Trujillo FENCE SUPERVISOR, FENCE SUPERVISOR-C Primary Care Provider Active Start: August 01, 2024 End: August 01, 2024 Aissatou Trujillo NP, FENCE SUPERVISOR-C Referring Provider Active Start: August 01, 2024 End: August 01, 2024 JAZMÍN Sepulveda Attending Provider Active St art: August 01, 2024 End: August 01, 2024 Team Status: Inactive Member Role Status Dates Aissatou Trujillo NP, FENCE SUPERVISOR-C Primary Care Provider Active Start: August 21, 2024 End: August 21, 2024 JAZMÍN Sepulveda Attending Provider Active St art: August 21, 2024 End: August 21, 2024 JAZMÍN Sepulveda Referring Provider Active St art: August 21, 2024 End: August 21, 2024 Care Team (unrecognized sect ion and content) Care Team Personnel Name: AISSATOU TRUJILLO TRIAL ATTORNEY-BOB Position: P4 Advanced Practice Nurse Med Service: Active Provider Member Role: Primary Care Physician Address: Address: [address] [place] [address] Care Team Related Persons Name: KARLY LALA Reason for Visit (unrecogniz ed section and content) Reason Comments New Patient PAF Specialty Diagnoses / Procedures Referred By Contact Referred To Contact Electrophysiology / Cardiology Diagnoses Paroxysmal atrial fibrillation (HCC) Procedures NE OFFICE/OP CONSLTJ NEW/EST PT MOD MDM 40 MINUTES Marsha Templeton PA [address] [id number] Maurice Fulton MD [address] [place] [address] Referral ID Status Reason Start Date Expiration Date Visits Re quested Visits Authorized [id number] Closed 10/06/2023 10/05/2024 1 1 FOR RECORDS PERTAINING TO PATIENTS WHO ARE [...] BE BASED ON THE PRIMARY CLINICAL RECORDS. [facility] [employer] [facility]. provides no warranty or guarantee of the accuracy or completeness of information in this document.
== END | disposition home or self-care (01) ==
LOC: PSN 09:00
PROVIDERS: PCP Nurse Practitioner Family; Referring Provider Student in an Organized Health Care Education/Training Program; Visit Provider Student in an Organized Health Care Education/Training Program
DX: I48.0 Paroxysmal atrial fibrillation (principal); Z79.899 Other long term (current) drug therapy
CPT/HCPCS: 94060; 94726; 94729

== ENCOUNTER → 2024-10-22 | Outpatient (CLI) | payer MEDICARE, SELFPAY ==
--- OUTSIDE RECORDS SUMMARY | 2024-10-22 05:56 | XMS RPT_ITS | CCD ---
Author Organization [facility] Care Team Providers Care [employer] Driver Name Role Phone AISSATOU CRUZ Primary Care Physician Darin LINK, FARIBA-C Aissatou Primary Care Provider Darin LINK, FARIBA-C Aissatou Referring Provider 1([facility] )[phone] Dr. Helio Lopez Attending Provider 1([facility])[phone] Darin LINK NP-C Aissatou Primary Care Provider Dr. Helio Lopez Attending Provider Dr. Aneudy Santiago Referring Provider Dr. Helio Lopez Referring Provider 1([facility])[phone] Dr. Helio Lopez Other Provider 1([facility])[phone] Helio Lopez Referring Provider 1([facility])[phone] Trey LINK NP-Gelacio Fernando Attending Provider Darin LINK NP-C Aissatou Primary Care Provider Dr. Yoav Olivares Attending Provider Dr. Aneudy Santiago Referring Provider Darin LINK NP-Gelacio Reyez Referring Provider 1([facility] )[phone] Trey LINK NP-Gelacio Fernando Attending Provider Dr. Yoav Olivares Referring Provider Darin LINK NP-C Aissatou Primary Care Provider Darin LINK NP-C Aissatou Referring Provider 1([facility] )[phone] Dr. Yoav Olivares Attending Provider Virgen ASSEMBLER TUBING, ASSEMBLER TUBING-C Urmila Attending Provider Lorson ASSEMBLER TUBING, ASSEMBLER TUBING-C [place] Primary Care Provider Dr. Yoav Olivares Attending Provider Dr. Yoav Olivares Referring Provider Lorson ASSEMBLER TUBING, ASSEMBLER TUBING-C Aissatou Referring Provider [phone] Trey ASSEMBLER TUBING, ASSEMBLER TUBING-C Yvon Fernando Attending Provider Lorson ASSEMBLER TUBING, ASSEMBLER TUBING-C [place] Primary Care Provider Lorson ASSEMBLER TUBING, ASSEMBLER TUBING-C Aissatou Referring Provider [phone] Trey ASSEMBLER TUBING, ASSEMBLER TUBING-C Yvon Fernando Attending Provider LORSON KNURLING MACHINE OPERATOR-STRAPPING MACHINE OPERATOR, [facility] Care Unavail able LAURIE QUINONES DO Attending Unavailable LORSON KNURLING MACHINE OPERATOR-STRAPPING MACHINE OPERATOR, MALAKOFF Primary Care Unavail able LORSON KNURLING MACHINE OPERATOR-STRAPPING MACHINE OPERATOR, AISSATOU Attending Unavail able LORSON KNURLING MACHINE OPERATOR-STRAPPING MACHINE OPERATOR, AISSATOU Attending Unavail able LORSON KNURLING MACHINE OPERATOR-STRAPPING MACHINE OPERATOR, MALAKOFF Referring Unavail able LORSON KNURLING MACHINE OPERATOR-STRAPPING MACHINE OPERATOR, MALAKOFF Primary Care Unavail able LORSON KNURLING MACHINE OPERATOR-STRAPPING MACHINE OPERATOR, AISSATOU Attending Unavail able LORSON KNURLING MACHINE OPERATOR-STRAPPING MACHINE OPERATOR, MALAKOFF Primary Care Unavail able LORSON KNURLING MACHINE OPERATOR-STRAPPING MACHINE OPERATOR, MALAKOFF Primary Care Unavail able MONTSE KNURLING MACHINE OPERATOR-STRAPPING MACHINE OPERATOR, JEAN PAUL Attending Sushil Trujillo ASSEMBLER TUBING, ASSEMBLER TUBING-C [facility] Care Provider Dr. aWgner Adkins Attending Provider [phone] Dr. Beto Huizar Referring Provider Dr. Yoav Olivares Attending Provider Darin ASSEMBLER TUBING, ASSEMBLER TUBING-C [place] Primary Care Provider Trey ASSEMBLER TUBING, ASSEMBLER TUBING-C Yvon Fernando Attending Provider Dr. Yoav Olivares Attending Provider Unavailable Primary Care Provider UnavailMAURICE Mayberry Attending Unavailable MARSHA TEMPLETON Referring Unavailable Lorson ASSEMBLER TUBING-C, [place] Primary Care Provider Ling Beck Attending Provider Long GroveAvelen Referring Provider [phone] Lorson ASSEMBLER TUBING-C, Aissatou Referring Provider [phone] Marsha Celis Attending Provider [phone] Marsha Celis Referring Provider [phone] LORSON KNURLING MACHINE OPERATOR-STRAPPING MACHINE OPERATOR, AISSATOU Attending Unavail able LORSON KNURLING MACHINE OPERATOR-STRAPPING MACHINE OPERATOR, AISSATOU Primary Care Unavail able LORSON KNURLING MACHINE OPERATOR-STRAPPING MACHINE OPERATOR, AISSATOU Attending Unavail able LORSON KNURLING MACHINE OPERATOR-STRAPPING MACHINE OPERATOR, AISSATOU Primary Care Unavail able Kim NARVAEZ, Dr. Barr Attending Provider [phone] Bryan DO, Dr. Carroll Emergency Provider Bryan DO, Dr. Carroll Attending Provider Marshall DO, Dr. Cason Attending Provider Marshall , Dr. Cason Referring Provider Keshawn Guzman Attending Provider [phone] Lorson ASSEMBLER TUBING-C, [place] Primary Care Provider [phone] Keshawn Guzman Referring Provider [phone] Lorson ASSEMBLER TUBING-C, [place] Primary Care Provider [phone] Marsha Celis Attending Provider [phone] Lorson ASSEMBLER TUBING-C, Aissatou Referring Provider [phone] Nicoleiter, Keshawn Referring Unavailable Momo Alvarez Attending Unavailable Lorson, Aissatou Primary Care Unavailable Demiter, Keshawn Referring Unavailable Demiter, Keshawn Attending Unavailable Lorson, Aissatou Primary Care Unavailable Lorson, Aissatou Primary Care Unavailable Carly Adams Attending Unavailable Lorson, [place] Primary Care Unavailable Momo Alvarez Attending Unavailable Marsha Celis Referring Unavail able Lorson, [place] Primary Care Unavailable Lorson, Aissatou Referring Unavailable Demiter, Keshawn Attending Unavailable Lorson, Aissatou Primary Care Unavailable Demiter, Keshawn Referring Unavailable Demiter, Keshawn Attending Unavailable Yoav Olivares Attending Unavailable Lorson, Aissatou Primary Care Unavailable Yoav Olivares Referring Unavailable Lorson, Aissatou Primary Care Unavailable Marsha Celis Referring Unavail able Marsha Celis Attending Unavail able Keshawn Saeed Attending Unavailable Keshawn Saeed Referring Unavailable [facility] Unavailable Aneudy Santiago Referring Unavailable Lorson, [place] Primary Care Unavailable Aneudy Santiago Attending Unavailable Lorson, Aissatou Referring Unavailable Marsha Celis Attending Unavail able Lorson, [facility] Care Unavailable [place], Ling Referring Unavailable [place] Attending Unavailable [facility] Unavailable [place], [place] Primary Care Unavailable KevinAneudy Attending Unavailable Lorson, [place] Primary Care Unavailable Marsha Celis Attending Unavail able Marsha Celis Referring Unavail able Yoav Olivares Referring Unavailable Yoav Olivares Attending Unavailable L[place]on, [facility] Care Unavailable Yoav Olivares Attending Unavailable [facility] Referring Unavailable [place], [place] Primary Care Unavailable Lorson, Aissatou Referring Unavailable Marsha Celis Attending Unavail able Lorson, [facility] Care Unavailable Lorson, Aissatou Referring Unavailable Marsha Celis Attending Unavail able [facility], [facility] Unavailable [facility] Referring Unavailable Keshawn Saeed Attending Unavailable Yoav Olivares Attending [facility] Medications Current Medications Medication Drug Class(es) Dates Sig (Normalized) Sig (Original) amiodarone hydrochloride 200 mg oral tablet (20 sources) Antiarrhythmic Start: 08-01-2024 End: 09-10-2024 take 1 tablet by mouth once daily Amiodarone 200 mg tablet Active 200 mg PO daily 90 September 10, 2024 9:23am Start: 07-10-2024 End: 08-01-2024 Amiodarone 200 mg [...] a day. amLODIPine 10 mg oral tablet (20 sources) Dihydropyridine Calcium Channel Hilary Start: 07-10-2024 take 1 tablet by mouth once daily Amlodipine 10 mg tablet Active 10 mg PO DAILY 90 July 10, 2024 1:50pm Start: 05-25-2024 End: 07-10-2024 take 1 tablet by mouth once daily Amlodipine 5 mg tablet Discontinued 5 mg PO DAILY 90 May 25, 2024 9:21am July 10, 2024 1:52pm Start: 08-25-2023 End: 05-25-2024 take 1 tablet by mouth once daily Amlodipine 10 mg tablet Discontinued 10 mg PO DAILY August 25, 2023 10:45am May 25, 2024 9:23am Start: 04-25-2023 End: 08-25-2023 take 1 tablet by mouth once daily Amlodipine 5 mg tablet Discontinued 5 mg PO DAILY 03 02April 25, 2023 1:00am August 25, 2023 10:46am benzonatate 200 mg oral capsule (1 source) Non-narcotic Antitussive Start: 09-29-2021 End: 10-04-2021 benzonatate 200 mg oral capsule Dose : 200 mg = 1 cap(s), Oral, TID, X 5 day(s), # 15 cap(s), 0 Refill(s), 10/04/21 14:34:00 EDT, Pharmacy: [id number], 183, cm, 09/23/21 16:36:00 EDT, Height Start Date: 09/29/21 Stop Date: 10/04/21 Status: Ordered bicalutamide 50 mg oral tablet (11 sources) Androgen Receptor Inhibitor Start: 05-12-2022 take 50 mg by mouth once daily Bicalutamide Active 50 MG PO DAILY May 17, 2022 11:00pm cetirizine hydrochloride 10 mg oral tablet (13 sources) Histamine-1 Receptor Antagonist Start: 06-21-2024 take [...] 25, 2023 12:00am May 25, 2024 8:49am digoxin 0.125 mg oral tablet (2 sources) Cardiac Glycoside Start: 08-29-2024 take 1 tablet by mouth once daily Digoxin 125 mcg (0.125 mg) tablet Active 125 ug PO daily 30 August 29, 2024 12:00am dutasteride 0.5 mg oral capsule (4 sources) [...] Start Date: 03/11/23 Status: Ordered Multivitamin tablet (6 sources) Start: 08-25-2023 Multivitamin t ablet Active 1 {tbl} PO DAILY August 25, 2023 12:00am Bamberg-3 Fatty Acids-Fish Oil (Fish Oil 1,000 Mg Capsule) 1 EACH capsule (4 sources) Start: 06-23-2015 Bamberg-3 Fatty Acids-Fish Oil (Fish Oil 1,000 Mg Capsule) 1 EACH capsule Active 1 EACH PO DAILY June 23, 2015 2:57pm Start: 06-23-2015 Bamberg-3 Fatty Acids-Fish Oil (Fish Oil 1,000 Mg Capsule) 1 EACH capsule Active 1 EACH PO DAILY June 23, 2015 12:00am 24 hr oxybutynin chloride 10 mg extended release oral tablet (7 sources) Cholinergic Muscarinic Antagonist Start: 11-25-2023 take [...] 6 HOURS as needed for pain 14 7 0 December 18, 2021 May 18, 2022 8:31am Malignant neoplasm of prostate Malignant neoplasm of prostate Start: 12-18-2021 End: 05-18-2022 take 1 tablet by mouth every six hours Oxycodone-Acetaminophen Discontinued 1 TABLET PO EVERY 6 HOURS 14 7 December 18, 2021 May 18, 2022 8:31am [...] 2021 5:51am azithromycin 250 mg oral tablet (20 sources) Macrolide Antimicrobial Start: 09-30-2021 End: 11-10-2021 Azithromycin (Zithromax Z-Colby) 250 mg tablet Discontinued 0 PO .COMPLEX 6 September 30, 2021 12:00am November 10, 2021 9:36am For 250 mg dose pack: take 500 mg today (day 1), then 250 mg for 4 days (days 2-5) PO ciprofloxacin 500 mg oral tablet (18 sources) Quinolone Antimicrobial Start: 12-18-2021 End: 06-02-2022 take 1 tablet by mouth twice daily Ciprofloxacin Hcl (Cipro) 500 mg tablet Discontinued 500 mg PO TWICE A DAY 20 December 18, 2021 12:00am June 02, 2022 [...] 10:26am docusate sodium 100 mg oral capsule (18 sources) Start: 12-18-2021 End: 05-18-2022 take 1 [...] qAM, # 16 gram(s), 0 Refill(s), Pharmacy: [address], Sinusitis, 183, cm, 05/19/21 8:33:00 EDT, Height, kg, 05/19/21 8:33:00 EDT, Dosing Weight Start Date: 05/19/21 Stop Date: 06/18/21 Status: Ordered 0.375 ml leuprolide acetate 60 mg/ml prefilled syringe (11 sources) Gonadotropin Releasing Hormone Receptor Agonist Start: 11-18-2022 End: 04-11-2023 Leuprolide (3 Month) (Eligard (3 Month)) 22.5 mg syringe Discontinued 22.5 [...] 2023 10:45am Start: 09-03-2022 End: 04-25-2023 take 1 tablet by mouth once daily Lisinopril 5 mg tablet Discontinued 10 mg PO DAILY 180 3 September 03, 2022 1:31pm April 25, 2023 11:20am Dose increased to twice a day Start: 09-03-2022 End: 04-25-2023 take 2 tablets [...] 5 mg PO TWICE A DAY 180 3 July 29, 2022 4:01pm September 03, 2022 1:31pm Dose increased to twice a day Start: 05-28-2022 End: 07-29-2022 take 1 tablet by mouth once daily Lisinopril 5 mg tablet Discontinued 5 mg PO DAILY 90 3 June 16, 2022 3:15pm July 29, 2022 4:02pm Magnesium (15 sources) Start: 06-09-2022 End: 11-18-2022 Magnesium 200 [...] 12:00am megestrol acetate 20 mg oral tablet (10 sources) Progestin Start: 01-11-2023 End: 07-11-2023 take [...] 26, 2022 9:23am November 26, 2022 12:10pm heart Start: 11-26-2022 End: 11-26-2022 take 50 mg [...] 12, 2022 4:20pm November 26, 2022 9:23am heart Start: 10-27-2021 End: 04-12-2022 Metoprolol Tartrate 50 mg ta blet Discontinued 25 mg PO TWICE A DAY December 18, 2021 5:51am April 12, 2022 4:21pm heart Start: 10-27-2021 End: 04-12-2022 take 25 mg by mouth twice daily Metoprolol Tartrate Di scontinued 25 MG PO TWICE A DAY December 18, 2021 4:51am April 12, 2022 3:21pm Start: 10-19-2021 End: 10-27-2021 take 1 tablet by mouth twice daily Metoprolol Tartrate 50 mg tablet Discontinued 50 mg PO TWICE A DAY 180 4 October 19, 2021 9:15am October 27, 2021 5:29pm Start: 09-23-2021 End: 10-19-2021 take 1 tablet by mouth twice daily Metoprolol Tartrate 25 mg tablet Discontinued 25 mg PO TWICE A DAY September 24, 2021 12:00am October 19, 2021 9:15am Multivitamin (Daily Multiple ) tablet (20 sources) Start: 09-28-2021 End: 11-10-2021 Multivitamin (Daily [...] Date Documented Da te Episodic/Chronic Administrative/social admission (16 sources) Patient encounter status; Translations: [Counseling, unspecified] [...] (2 sources) Injection site disorder 11-01-2022 Episodic Essential hypertension (20 sources) Essential hypertension; Translations: [Essential (primary) hypertension] Chronic Comment on above: RECENT INCREASE IN M ETOPROLOL Headache; including migraine (10 sources) Migraine; Translations: [Migraine, unspecified, not intractable, without status migrainosus] 03-11-2023 Chronic Heart valve disorders (17 sources) Mitral valve regurgitation; Translations: [Non-rheumatic mitral regurgitation ] 11-01-2022 Chronic Malaise and fatigue (13 sources) Fatigue; Translations: [Other fatigue] 08-27-2022 Episodic Other aftercare (20 sources) Long-term current use of 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; Translations: [detention (current) use of 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s] 08-27-2022 Episodic Other aftercare (7 sources) Drug therapy finding; Translations: [Other technician terminal and repeater (current) drug therapy] 08-01-2024 Episodic Other aftercare (1 source) Other technician terminal and repeater (current) drug therapy; Translations: [Other technician terminal and repeater (current) drug therapy] Onset: 09-26-2024 Episodic Other and unspecified benign neoplasm (5 sources) Polyp of colon 05-12-2022 Episodic Other and unspecified benign neoplasm (15 sources) Lipoma of skin and subcutaneous tissue of face; Translations: [Benign lipomatous neoplasm of skin and subcutaneous tissue of head, face and neck] 07-07-2022 Episodic Other and unspecified benign neoplasm (2 sources) Benign lipomatous neoplasm of skin and subcutaneous tissue of head, face and neck; Translations: [Lipoma of skin and subcutaneous tissue of face] 01-18-2023 Episodic Other circulatory disease (5 sources) H/O: atrial fibrillation; Translations: [Personal history of other diseases of the circulatory system] 06-21-2024 Episodic Other connective tissue disease (1 source) Musculoskeletal symptom; Translations: [Other symptoms and signs involving the musculoskeletal system] Episodic Other connective tissue disease (6 sources) Swelling of lower limb; Translations: [Other specified soft tissue disorders] 10-05-2023 Episodic Other gastrointestinal disorders (7 sources) Prostate mass 08-19-2021 Episodic Other gastrointestinal disorders (2 sources) Diarrhea, unspecified; Translations: [Diarrhea, unspecified] Onset: 06-13-2024 Episodic Other lower respiratory disease (5 sources) Postviral cough 02-03-2022 Episodic Other lower respiratory disease (5 sources) Tussive syncope 10-08-2021 Episodic Other lower respiratory disease (19 sources) Dyspnea on exertion; Translations: [Other forms [...] sources) Obesity 02-03-2022 Chronic Other skin disorders (9 sources) Lump on face; Translations: [Localized swelling, mass and lump, head] 01-18-2023 Episodic Other skin disorders (2 sources) Localized swelling, mass and lump, head; Translations: [Swelling, mass, or lump in head and neck] 01-18-2023 Episodic Residual codes; unclassified (10 sources) Hypersomnia; Translations: [Hypersomnia, unspecified] 11-18-2022 Chronic Residual codes; unclassified (1 source) Hypersomnia, unspecified; Translations: [Hypersomnia, unspecified] 11-18-2022 Chronic Residual codes; unclassified (10 sources) Obstructive sleep apnea syndrome; Translations: [Obstructive sleep apnea (adult) (pediatric)] 10-05-2023 Chronic Residual codes; unclassified (1 source) Obstructive sleep apnea (adult) (pediatric); Translations: [Obstructive sleep apnea (adult) (pediatric)] Onset: 11-08-2023 Chronic Screening and history of mental health and substance abuse codes (5 sources) Tobacco use and exposure - finding 02-03-2022 Chronic Unclassified (20 sources) Patient encounter status 06-05-2020 Unclassified (5 sources) Drug therapy finding 02-03-2022 Unclassified (1 source) Hypercoagulable state due to atrial fibrillation 08-29-2023 Past or Other Problems Problem Classification Problem Date Documented Date Episodic/Chronic Cardiac dysrhythmias (6 sources) Bradycardia; Translations: [Bradycardia, unspecified] Onset: 06-25-2024 06-21-2024 Episodic Conditions associated with dizziness or vertigo (6 sources) Dizziness; Translations: [Dizziness and giddiness] Onset: 06-28-2024 06-21-2024 Episodic Other lower respiratory disease (1 source) Other forms of dyspnea; Translations: [Other forms of dyspnea] Onset: 06-25-2024 Episodic Other screening for suspected conditions (not mental disorders or infectious disease) (2 sources) Cardiac disease monitoring status; Translations: [Encounter for screening for cardiovascular disorders] Onset: 01-09-2024 Episodic Residual codes; unclassified (20 sources) History of cardiac catheterization; Translations: [Other specified postprocedural states] Onset: 04-07-2001 09-29-2021 Episodic Comment on above: Normal coronaries pe r cardiac cath Dr. Lopez [facility] 04/12/01 Residual codes; unclassified (1 source) Hormone sensitive malignancy status; Translations: [Hormone sensitive malignancy status] Onset: 07-10-2024 Episodic Results Test Name Value Interpretation Reference Range Facility Bilirubin directOrdered By: Keshawn Saeed on 09-21-2024 Bilirubin.direct [Mass/Vol] 0.16 mg/dL 0.00-0.30 [facility] Bilirubin, totalOrdered By: Keshawn Saeed on 09-21-2024 Bilirubin [Mass/Vol] 0.42 mg/dL 0.00-1.30 [facility] - Chemistry and C hemistry - challengeOrdered By: Keshawn Saeed on 09-21-2024 AST [Catalytic activity/Vol] 27 U/L <38 [facility] Liver Profileon 09-21-2024 Albumin [Mass/Vol] 4.5 g/dL Normal 3.4-4.8 [facility] Comment on above: Performed By: #### L 500.3400, L501.9520 #### [facility] [address] [place], [address] ALK PHOS 94 U/L Normal 40-129 [facility] Comment on above: Performed By: #### L 500.3400, L501.9520 #### [facility] [address] [place], [address] ALT [Catalytic activity/Vol] 29 U/L Normal <=46 [facility] Comment on above: Performed By: #### L 500.3400, L501.9520 #### [facility] [address] [place], [address] AST [Catalytic activity/Vol] 27 U/L Normal <=37 [facility] Comment on above: Performed By: #### L 500.3400, L501.9520 #### [facility] [address] [place], [address] Bilirubin [Mass/Vol] 0.42 mg/dL Normal 0.00-1.30 [facility] Comment on above: Performed By: #### L 500.3400, L501.9520 #### [facility] [address] [place], [address] Bilirubin.direct [Mass/Vol] 0.16 mg/dL Normal 0.00-0.30 [facility] Comment on above: Performed By: #### L 500.3400, L501.9520 #### [facility] [address] [place], [address] Globulin (S) [Mass/Vol] 2.9 g/dL Normal 2.2-4.2 [facility] Comment on above: Performed By: #### L 500.3400, L501.9520 #### [facility] [address] [place], [address] T PROT 7.4 g/dL Normal 5.9-8.4 [facility] Comment on above: Performed By: #### L 500.3400, L501.9520 #### [facility] [address] [place], [address] Serum globulin measurementOr dered By: Keshawn Saeed on 09-21-2024 Globulin (S) [Mass/Vol] 2.9 g/dL 2.2-4.2 [facility] Serum or plasma alanine pereira otransferase (ALT) measurementOrdered By: Keshawn Saeed on 09-21-2024 ALT [Catalytic activity/Vol] 29 U/L <47 [facility] Serum or plasma albumin elio urement (mass/volume)Ordered By: Keshawn Saeed on 09-21-2024 Albumin [Mass/Vol] 4.5 g/dL 3.4-4.8 [facility] Serum or plasma alkaline benjamin sphatase measurementOrdered By: Keshawn Saeed on 09-21-2024 ALP [Catalytic activity/Vol] 94 U/L 40-129 [facility] TSH DL <= 0.005 mIU/L QnOrde red By: Keshawn Saeed on 09-21-2024 TSH Qn 1.400 uIU/mL 0.300-4.200 [facility] Thyroid Stim Hormone (TSH)on 09-21-2024 TSH 1.400 uIU/mL Normal 0.300-4.200 [facility] Comment on above: Performed By: #### L 500.3400, L501.9520 #### [facility] [address] [place], [place], [id number] Total proteinOrdered By: Kip Saeed on 09-21-2024 Protein [Mass/Vol] 7.4 g/dL 5.9-8.4 [facility] Cardiology Visit Reporton Cardiology Visit Report [facility] [address] [place] [address] OFFICE VISIT Date of Service: 08/01/24 MR#: [id number] Acct: [id number] Name: RAMIRO LALA Rep #: [id number] : 1950 Provider: JAZMÍN Sepulveda Age/Sex: 74/M Location[place] [facility] Status: Signed HPI HPI History of Present [...] Intake Visit Reasons: 1 M FU/Needs EKG Merit System Director Required: No Is patient in pain?: No [...] ROS Co (more content not included)... Normal [facility] 12 Lead EKG performed by [facility] on 07-10-2024 12 Lead EKG performed by [facility] [address] [place] [address] 12 Lead EKG performed by [facility] 07/10/241126 MR#: [id number] Acct: [id number] Name: RAMIRO LALA Rep #: [id number] : 1950 74 From: Keshawn NOYOLA Attending Dr: JAZMÍN Sepulveda Status: DEP AM B Ordering Dr: Keshawn Saeed Date: 07/10/24 Location: [facility] Sex: M C Admitted: [facility]/12 Lead EKG performed by [facility] ECG Report Interpretation -------Atrial flutter-fibrillatio n - occasional ectopic ventricular beat -RSR(V1) -nondiagnostic. -Nonspecific ST depression + Nonspecific T-abnormality -Nondiagnostic. ABNORMAL Electronically signed on 07/17/2024 at 08:09 by Momo [employer] Version [id number] 07/17/24 0811 Date Keshawn NOYOLA CC: DAVID Trujillo Date Dictated: 07/10/241126 Date Transcribed: 07/10/241126 Coat Tailor: RUBIO Signed Normal [facility] Cardiology Visit Reporton Cardiology Visit Report [facility] [address] [place] [address] OFFICE VISIT Date of Service: 07/10/24 MR#: [id number] Acct: [id number] Name: RAMIRO LALA Rep #: [id number] : 1950 Provider: JAZMÍN Sepulveda Age/Sex: 74/M Location: [facility] [place] Status: Signed HPI HPI History of Present [...] air Intake Visit Reasons: Medication Changes/See Note Merit System Director Required: No Is patient in pain?: No Allergies No Known Allergies Allergy (Verified 05/06/25 14:10) Medications ???Medication ???Instructions ???Recorded ???Confirmed ???Type [...] current a (more content not included)... Normal [facility] Radiation Oncology Visiton 0 07-10-2024 Radiation Oncology Visit [facility] [address] [place] [address] OFFICE VISIT Date of Service: 07/10/24 1405 MR#: [id number] Acct: [id number] Name: RAMIRO LALA Rep #: [id number] : 1950 From: Yoav Olivares DO Age/Sex: 74/M Location[place] [facility] Status: Signed Intake Vital Signs 01/09/24 09:30 [...] lobulated appearance (more content not included)... Normal [facility] PSA,Total- Diagnosticon 05-0 PSA, DIAGNOSTIC < 0.02 Normal 0.00-4.00 [facility] Comment on above: Result Comment: This test was performed using the [employer] tPSA method. Measured values of a patient??sample can vary depending on the testing procedure used. PSA values determined on patient samples by different testing procedures cannot be used interchangeably. If there is a change in PSA assays while monitoring therapy, sequential testing should be performed to confirm baseline values. Performed By: #### L 501.9940 #### [facility] [address] [place], [address] 12 Lead EKG performed by [facility] on 06-25-2024 12 Lead EKG performed by [facility] [address] [place] [address] 12 Lead EKG performed by [facility] 06/25/24 1028 MR#: [id number] Acct: [id number] Name: RAMIRO LALA Rep #: [id number] : 1950 74 From: Marsha Cox Attending Dr: JAZMÍN Mosley Status: DEP AMB Ordering Dr: Marsha Templeton Date: 06/06 03/31 Location: [facility] Sex: M C Admitted: BMS/12 Lead EKG performed by [facility] ECG Report Interpretation -------Sinus Bradycardia -First degree A-V block Jessica = 234-RSR(V1) -nondiagnostic. -Left atrial enlargement. - Nonspecific T-abnormality. ABNORMAL Electronically signed on 06/27/2024 at 16:24 by Momo Alvarez Software Version [id number] 06/27/24 1630 Date Marsha NOYOLA CC: DAVID Trujillo Date Dictated: 06/25/24 1028 Date Transcribed: 06/25/24 1028 Coat Tailor: TELMA Signed Normal [facility] 12 Lead EKGon 06-21-2024 12 Lead EKG [facility] Cardiovascular Services [address] [place] [address] 12 Lead EKG 06/21/24 0930 MR#: [id number] Acct: [id number] Name: RAMIRO LALA Rep #: [id number] : 1950 74 From: Nader Do MD [...] Borderline ECG Confirmed by Nader Do ([id number]), web editor YVES NELSON ([id number]) on 06/22/2024 12:46:00 PM Referred By: Confirmed By: Nader Do 06/22/24 1246 Date Nader Do MD CC: DAVID Trujillo; Dr. Carly Adams, DO Signed Normal [facility] Absolute lymphocyte countOrd ered By: Carly Adams on 06-21-2024 Lymphocytes Auto (Unsp spec) [#/Vol] 1.74 10*3/uL 0.83-4.51 [facility] Absolute neutrophil countOrd ered By: Carly Adams on 06-21-2024 Neutrophils (Bld) [#/Vol] 3.4 10*3/uL 2.0-7.7 [facility] Anion gap in Serum or Plasma Ordered By: Carly Adams on 06-21-2024 Anion gap [Moles/Vol] 12 mmol/L 5-15 [facility] Automated lymphocyte count a s percentage of total leukocytesOrdered By: Carly Adams on 06-21-2024 Lymphocytes/100 WBC Auto (Unsp spec) 27.9 % 19-41 [facility] BUN/creatinine ratioOrdered By: Carly Adams on 06-21-2024 Urea nitrogen/Creatinine [Mass ratio] 16.2 mg/mg 10- [facility] Basic Metabolic Profile (BMP )on 06-21-2024 BUN/CRE 16.2 RATIO Normal - [facility] Comment on above: Performed By: #### L 501.9940, L509.3000 #### [facility] [address] [place], [address] Calcium [Mass/Vol] 9.2 mg/dL Normal 7.6-11.0 [facility] Comment on above: Performed By: #### L 501.9940, L509.3000 #### [facility] [address] [place], [address] Chloride [Moles/Vol] 101 mmol/L Normal 98-108 [facility] Comment on above: Performed By: #### L 501.9940, L509.3000 #### [facility] [address] [place], [address] CO2 [Moles/Vol] 22.7 mmol/L Normal 21.0-32.0 [facility] Comment on above: Performed By: #### L 501.9940, L509.3000 #### [facility] [address] [place], [address] Creatinine [Mass/Vol] 0.98 mg/dL Normal 0.70-1.20 [facility] Comment on above: Performed By: #### L 501.9940, L509.3000 #### [facility] [address] [place], [address] ECRCL 87.64 ml/min Normal 50-250 [facility] Comment on above: Performed By: #### L 501.9940, L509.3000 #### [facility] [address] [place], [address] GAP 12 Normal 5-15 [facility] Comment on above: Performed By: #### L 501.9940, L509.3000 #### [facility] [address] [place], [address] GFR/1.73 sq M.predicted among non-blacks MDRD (S/P/Bld) [Vol rate/Area] 81 mL/min/{1.73_m2} Normal >60 [facility] Comment on above: Result Comment: mL/m in/1.73m2 CKD-EPI Creatinine Equation (2020) Performed By: #### L 501.9940, L509.3000 #### [facility] [address] [place], [address] Glucose [Mass/Vol] 95 mg/dL Normal 70-99 [facility] Comment on above: Performed By: #### L 501.9940, L509.3000 #### [facility] [address] [place], [address] Potassium [Moles/Vol] 4.2 mmol/L Normal 3.3-5.1 [facility] Comment on above: Performed By: #### L 501.9940, L509.3000 #### [facility] [address] [place], [address] Sodium [Moles/Vol] 136 mmol/L Normal 133-145 [facility] Comment on above: Performed By: #### L 501.9940, L509.3000 #### [facility] [address] [place], [address] Urea nitrogen [Mass/Vol] 16 mg/dL Normal 4-19 [facility] Comment on above: Performed By: #### L 501.9940, L509.3000 #### [facility] [address] [place], [address] Basophil percentageOrdered B y: Remus Ungur on 06-21-2024 Basophils/100 WBC (Bld) 1.0 % 0-1 [facility] CBC W/Diff, Automatedon 06-05 Absolute Lymph 1.74 X10 3/uL Normal 0.83-4.51 [facility] Comment on above: Performed By: #### L 501.9940, L509.3000 #### [facility] [address] [place], [address] Absolute Neut 3.4 X10 3/uL Normal 2.0-7.7 [facility] Comment on above: Performed By: #### L 501.9940, L509.3000 #### [facility] [address] [place], [address] Basophils/100 WBC (Bld) 1.0 % Normal 0-1 [facility] Comment on above: Performed By: #### L 501.9940, L509.3000 #### [facility] [address] [place], [address] Eosinophils/100 WBC (Bld) 3.2 % Normal 0-5 [facility] Comment on above: Performed By: #### L 501.9940, L509.3000 #### [facility] [address] [place], [address] Erythrocyte distribution width (RBC) [Ratio] 13.7 % Normal 11.6-14.6 [facility] Comment on above: Performed By: #### L 501.9940, L509.3000 #### [facility] [address] [place], [address] Hematocrit (Bld) [Volume fraction] 43.7 % Normal 40-54 [facility] Comment on above: Performed By: #### L 501.9940, L509.3000 #### [facility] [address] [place], [address] Hemoglobin (Bld) [Mass/Vol] 14.6 g/dL Normal 13.0-16.5 [facility] Comment on above: Performed By: #### L 501.9940, L509.3000 #### [facility] [address] [place], [address] IG% 0.500 Normal 0.0-0.9 [facility] Comment on above: Result Comment: IG% - Immature Granulocytes (promyelocytes, myelocytes and metamyelocytes) > 1% indicates that a LEFT SHIFT is Present. Performed By: #### L 501.9940, L509.3000 #### [facility] [address] [place], [address] Lymphocytes/100 WBC (Bld) 27.9 % Normal 19-41 [facility] Comment on above: Performed By: #### L 501.9940, L509.3000 #### [facility] [address] [place], [address] MCH (RBC) [Entitic mass] 28.3 pg Normal 27.0-32.0 [facility] Comment on above: Performed By: #### L 501.9940, L509.3000 #### [facility] [address] [place], [address] MCHC (RBC) [Mass/Vol] 33.4 g/dL Normal 32-36 [facility] Comment on above: Performed By: #### L 501.9940, L509.3000 #### [facility] [address] [place], [address] MCV (RBC) [Entitic vol] 84.7 fL Normal 80-94 [facility] Comment on above: Performed By: #### L 501.9940, L509.3000 #### [facility] [address] [place], [address] Monocytes/100 WBC (Bld) 12.7 % High 0-10 [facility] Comment on above: Performed By: #### L 501.9940, L509.3000 #### [facility] [address] [place], [address] Neutrophils/100 WBC (Bld) 54.7 % Normal 47-70 [facility] Comment on above: Performed By: #### L 501.9940, L509.3000 #### [facility] [address] [place], [address] Nucleated RBC (Bld) [#/Vol] 0 10*3/uL Normal 0-5 [facility] Comment on above: Performed By: #### L 501.9940, L509.3000 #### [facility] [address] [place], [address] Platelet mean volume (Bld) [Entitic vol] 12.1 fL High 6.2-12.0 [facility] Comment on above: Performed By: #### L 501.9940, L509.3000 #### [facility] [address] [place], [address] Platelets (Bld) [#/Vol] 165 10*3/uL Normal 150-450 [facility] Comment on above: Performed By: #### L 501.9940, L509.3000 #### [facility] [address] [place], [address] RBC (Bld) [#/Vol] 5.16 10*6/uL Normal 4.6-6.2 [facility] Comment on above: Performed By: #### L 501.9940, L509.3000 #### [facility] [address] [place], [address] RDW SD 42.5 fl Normal 35.1-43.9 [facility] Comment on above: Performed By: #### L 501.9940, L509.3000 #### [facility] [address] [place], [address] WBC (Bld) [#/Vol] 6.2 10*3/uL Normal 4.4-11.0 [facility] Comment on above: Performed By: #### L 501.9940, L509.3000 #### [facility] [address] [place], [address] Carbon dioxide, total [Moles /volume] in Central venous bloodOrdered By: Carly Adams on 06-21-2024 CO2 [Moles/Vol] 22.7 mmol/L 21.0-32.0 [facility] Chloride assayOrdered By: Ilene Adams on 06-21-2024 Chloride [Moles/Vol] 101 mmol/L 98-108 [facility] Emergency Department Summary on 06-21-2024 Emergency Department Summary [facility] Medical Records Department [address] [place] [address] Emergency Department Summary 06/21/24 MR#: [id number] Acct: [id number] Name: RAMIRO LALA Rep #: [id number] : 1950 74 From: Carly Adams DO [...] metoprolol. Patient denies recent illness. Denies syncope. [facility] Medical History Wears hearing aid Wears glasses [...] 1 mi (more content not included)... Normal [facility] Eosinophil percentageOrdered By: Carly Adams on 06-21-2024 Eosinophils/100 WBC (Bld) 3.2 % 0-5 [facility] Erythrocyte distribution wid th (RBC) [Ratio]Ordered By: Carly Adams on 06-21-2024 Erythrocyte distribution width (RBC) [Entitic vol] 42.5 fL 35.1-43.9 [facility] Erythrocyte distribution wid th ratioOrdered By: Carly Adams on 06-21-2024 Erythrocyte distribution width (RBC) [Ratio] 13.7 % 11.6-14.6 [facility] Erythrocyte distribution wid th standard deviationOrdered By: Carly Adams on 06-21-2024 Erythrocyte distribution width (RBC) [Ratio] 42.5 fl 35.1-43.9 [facility] Estimation of creatinine negrito aranceOrdered By: Carly Adams on 06-21-2024 Estimated Creatinine Clearance Calc 87.64 ml/min 50-250 [facility] GFR/1.73 sq M.predicted toro g non-blacks MDRD (S/P/Bld) [Vol rate/Area]Ordered By: Carly Adams 06-21-2024 Estimated GFR (MDRD) Non-Af Amer 81 >60 [facility] Comment on above: mL/min/1.73m2 CKD-EP I Creatinine Equation (2020) Glomerular filtration rate ( GFR) estimation/1.73 sq m using serum, plasma, or whole bOrdered By: Carly Adams 06-21-2024 GFR/1.73 sq M.predicted among non-blacks MDRD (S/P/Bld) [Vol rate/Area] 81 mL/min/{1.73_m2} >60 [facility] Comment on above: mL/min/1.73m2 CKD-EP I Creatinine Equation (2020) Hematocrit Auto (Bld) [Volum e fraction]Ordered By: Carly Adams on 06-21-2024 Hematocrit (Bld) [Volume fraction] 43.7 % 40-54 [facility] Hemoglobin measurementOrdere d By: Carly Adams on 06-21-2024 Hemoglobin (Bld) [Mass/Vol] 14.6 g/dL 13.0-16.5 [facility] Immature granulocytes/100 WB C Auto (Bld)Ordered By: Carly Adams on 06-21-2024 Immature granulocytes/100 WBC (Bld) 0.500 % 0.0-0.9 [facility] Comment on above: IG% - Immature Granu locytes (promyelocytes, myelocytes and metamyelocytes) > 1% indicates that a LEFT SHIFT is Present. L501.4021on 06-21-2024 Trop T High Sen 8 ng/L Normal <=22 [facility] Comment on above: Performed By: #### L 501.9940, L509.3000 #### [facility] [address] [place], [place], [id number] Lymphocytes Auto (Unsp spec) [#/Vol]Ordered By: Carly Adams on 06-21-2024 Lymphocytes (Bld) [#/Vol] 1.74 10*3/uL 0.83-4.51 [facility] Lymphocytes/100 WBC Auto (Un sp spec)Ordered By: Carly Adams on 06-21-2024 Lymphocytes/100 WBC (Bld) 27.9 % 19-41 [facility] MCV (mean corpuscular volume ) determinationOrdered By: Carly Adams on 06-21-2024 MCV (RBC) [Entitic vol] 84.7 fL 80-94 [facility] Mean corpuscular hemoglobin (MCH) determinationOrdered By: Carly dAams on 06-21-2024 MCH (RBC) [Entitic mass] 28.3 pg 27.0-32.0 [facility] Mean corpuscular hemoglobin concentration (MCHC) determinationOrdered By: Carly Adams on 06-21-2024 MCHC (RBC) [Mass/Vol] 33.4 g/dL 32-36 [facility] Mean platelet volume determi nationOrdered By: Carly Adams on 06-21-2024 Platelet mean volume (Bld) [Entitic vol] 12.1 fL High 6.2-12.0 [facility] Monocyte percentageOrdered B y: Carly Adams on 06-21-2024 Monocytes/100 WBC (Bld) 12.7 % High 0-10 [facility] Neutrophil percentageOrdered By: Carly Adams on 06-21-2024 Neutrophils/100 WBC (Bld) 54.7 % 47-70 [facility] Nucleated red blood cell per centageOrdered By: Carly Adams on 06-21-2024 Nucleated RBC/100 WBC (Bld) [Ratio] 0 % 0-5 [facility] Platelet countOrdered By: Ilene Adams on 06-21-2024 Platelets (Bld) [#/Vol] 165 10*3/uL 150-450 [facility] Potassium (Unsp spec) [Mass/ Vol]Ordered By: Carly Adams on 06-21-2024 Potassium [Moles/Vol] 4.2 mmol/L 3.3-5.1 [facility] Potassium measurement (mass/ volume)Ordered By: Carly Adams on 06-21-2024 Potassium (Unsp spec) [Mass/Vol] 4.2 mmol/L 3.3-5.1 [facility] RBC Auto (Bld) [#/Vol]Ordere d By: Carly Adams on 06-21-2024 RBC (Bld) [#/Vol] 5.16 10*6/uL 4.6-6.2 [facility] Serum creatinine measurement (mass/volume)Ordered By: Carly Adams on 06-21-2024 Creatinine [Mass/Vol] 0.98 mg/dL 0.70-1.20 [facility] Serum glucose measurement (m ass/volume)Ordered By: Carly Adams on 06-21-2024 Glucose [Mass/Vol] 95 mg/dL 70-99 [facility] Serum or plasma calcium elio urement (mass/volume)Ordered By: Carly Adams on 06-21-2024 Calcium [Mass/Vol] 9.2 mg/dL 7.6-11.0 [facility] Serum or plasma urea nitroge n measurement (mass/volume)Ordered By: Carly Adams on 06-21-2024 Urea nitrogen [Mass/Vol] 16 mg/dL 4-19 [facility] Sodium levelOrdered By: Kajal Adams on 06-21-2024 Sodium [Moles/Vol] 136 mmol/L 133-145 [facility] Troponin T.cardiac High sens itivity method [Mass/Vol]Ordered By: Carly Adams on 06-21-2024 Troponin T High Sensitivity 8 ng/L <22 [facility] Troponin T.cardiac [Mass/vol ume] in Serum or Plasma by High sensitivity methodOrdered By: Remus Adams on 06-21-2024 Troponin T.cardiac High sensitivity method [Mass/Vol] 8 ng/L <22 [facility] White blood cell (WBC) count Ordered By: Carly Adams on 06-21-2024 WBC (Bld) [#/Vol] 6.2 10*3/uL 4.4-11.0 [facility] Cardiology Visit Reporton Cardiology Visit Report [facility] [address] [place] [address] OFFICE VISIT Date of Service: 05/25/24 MR#: [id number] Acct: [id number] Name: RAMIRO LALA Rep #: [id number] : 1950 Provider: JAZMÍN Lam Age/Sex: 74/M Location[place] [facility] Status: Signed HPI HPI History of Present Illness Details: This is a 74-year-old white male who presents today for an outpatient cardiovascular follow-up. He was first seen in office in September 2021 based upon concerns of an abnormal preoperative ECG demonstrating atrial fibrillation superimposed upon a history of hypertension. 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 Normal [facility] Diagnostic total prostate sp ecific antigen (PSA) measurementOrdered By: Ling Beck on 04-17-2024 Prostate Specific Antigen Total < 0.01 ng/mL 0.0-4.0 [facility] Comment on above: This test was perfor med using the TPSA assay method for [facility] chemistry system. Values obtained with differentassay methods cannot be used interchangably.When changing PSA assays in the course of monitoring apatient, additional sequential testing should be carriedout to confirm baseline values. PSA,Total- Diagnosticon 04-07 PSA, DIAGNOSTIC < 0.01 Normal 0.0-4.0 [facility] Comment on above: Result Comment: This test was performed using the TPSA assay method for the [employer] chemistry system. Values obtained with different assay methods cannot be used interchangably. When changing PSA assays in the course of monitoring a patient, additional sequential testing should be carried out to confirm baseline values. Performed By: #### L 501.9947, L509.3000 #### [facility] [address] [place], [address] Radiation Oncology Visiton 1 03-10-2023 Radiation Oncology Visit [facility] [address] [place] [address] OFFICE VISIT Date of Service: 01/09/24928 MR#: [id number] Acct: [id number] Name: RAMIRO LALA Rep #: [id number] : 1950 From: Yoav Olivares Age/Sex: 73/M Location: [facility] Status: Signed Intake Vital Signs 07/11/23 10:20 [...] the left.??? (more content not included)... Normal [facility] PSA,Total- Diagnosticon 11-0 PSA, DIAGNOSTIC < 0.01 Normal 0.0-4.0 [facility] Comment on above: Result Comment: This test was performed using the TPSA assay method for the [employer] chemistry system. Values obtained with different assay methods cannot be used interchangably. When changing PSA assays in the course of monitoring a patient, additional sequential testing should be carried out to confirm baseline values. Performed By: #### L 501.9940 #### [facility] [address] [place], [place], [address] Office Visiton 11-29-2023 Follow-up visit [id number] Ramiro Lala 1950 M Date Provider Department Center 11/29/2023 33692-XDZZAMAURICE [facility]ULTON [facility] [address] Family History Problem Relation Age of Onset Hypertension Mother Cancer Mother Hypertension Father Family Status - Relation Status Age at Mother Father Level of Service:29527 [place] OFFICE/OUTPATIENT NEW MODERATE MDM 45 MINUTES Reason for Visit and Comments: New Patient [542] - PAF Normal [facility] Progress Noteon 11-29-2023 Progress Note [facility] Cardiology Note Chief Complaint: Chief [...] and was asymptomatic initially. Records from the [place] [facility] are reviewed. A Holter monitor [...] Normal r (more content not included)... Normal [facility] LABORATORYOrdered By: Jaden Mcarthur on 11-28-2023 [...] 11-28-2023 Cholesterol [Mass/Vol] 125 mg/dL Normal 0-200 [facility] Comment on above: Result Comment: Chol esterol Reference Interval: Less than 200 Desirable 200-239 Borderline high risk 240 and above High risk Performed By: #### L IPID #### [address] [address] Cholesterol in HDL [Mass/Vol] 33 mg/dL Low 40-60 [facility] Comment on above: Performed By: #### L IPID #### [address] [address] Cholesterol in LDL [Mass/Vol] 51 mg/dL Normal 0-130 [facility] Comment on above: Performed By: #### L IPID #### [address] [address] Triglyceride [Mass/Vol] 206 mg/dL High 0-150 [facility] Comment on above: Result Comment: Trig lyceride Reference Interval: Less than 150 Normal 150-199 Borderline high risk 200-499 High risk 500 or higher Very high risk Performed By: #### L IPID #### [address] [place] [address] Cardiology Visit Reporton Cardiology Visit Report [facility] [address] [place], [place] [address] OFFICE VISIT Date of Service: 11/25/23 MR#: [id number] Acct: [id number] Name: RAMIRO LALA Rep #: [id number] : 1950 Provider: JAZMÍN Lam Age/Sex: 73/M Location: [facility] Status: Signed HPI HPI History of Present Illness Details: This is a 73-year-old white male who presents today for an outpatient cardiovascular follow-up. He was first seen in office in September 2021 based upon concerns of an abnormal preoperative ECG demonstrating atrial fibrillation superimposed upon a history of hypertension. He has undergone previous cardiovascular evaluation (approximately 2003) at [facility] with a diagnostic cardiac catheterization which was [...] 95 Intake Visit Reasons: 3 M FU [employer] Director Required: No Is patient in pain?: No [...] mucous membranes (more content not included)... Normal [facility] PSA,Total- Diagnosticon 10-05 PSA, DIAGNOSTIC < 0.01 Normal 0.0-4.0 [facility] Comment on above: Result Comment: This test was performed using the TPSA assay method for the [employer] chemistry system. Values obtained with different assay methods cannot be used interchangably. When changing PSA assays in the course of monitoring a patient, additional sequential testing should be carried out to confirm baseline values. Performed By: #### L 501.9940, L509.3000 #### [facility] [address] [place], [place], [id number] Testosterone, Serum Totalon 10-17-2023 Testosterone [Mass/Vol] 189.40 ng/dL Normal [facility] Comment on above: Result Comment: CENT RAL 90% REFERENCE RANGES MALE AGE <50 197.44 - 669.58 ng/dL MALE AGE > or = 50 187.72 - 684.19 ng/dL FEMALE AGE <50 8.38 - 35.01 ng/dL FEMALE AGE > or = 50 <7.00 - 35.92 ng/dL Effective as of 09/30/20 Performed By: #### L 501.9940, L509.3000 #### [facility] [address] [place], [place], [id number] Basophil percentageOrdered B y: Yoav Olivares on 07-08-2023 Basophil percentage < 0.01 ng/mL 0.0-4.0 [facility] Comment on above: This test was perfor med using the TPSA assay method for the[employer] chemistry system. Values obtained with differentassay methods cannot be used interchangably.When changing PSA assays in the course of monitoring apatient, additional sequential testing should be carriedout to confirm baseline values. Basophil percentageOrdered B y: Aneudy Santiago on 04-11-2023 Basophil percentage < 0.01 ng/mL 0.0-4.0 [facility] Comment on above: This test was perfor med using the TPSA assay method for the[employer] chemistry system. Values obtained with differentassay methods cannot be used interchangably.When changing PSA assays in the course of monitoring apatient, additional sequential testing should be carriedout to confirm baseline values. Absolute lymphocyte countOrd ered By: Luis Pringle on 03-03-2023 Lymphocytes Auto (Unsp spec) [#/Vol] 1.00 10*3/uL 0.83-4.51 [facility] Basophil percentageOrdered B y: Luis Pringle on 03-03-2023 Basophils/100 WBC (Bld) 0.9 % 0-1 [facility] Chloride [Moles/Vol] 105 mmol/L 98-107 [facility] Eosinophils/100 WBC (Bld) 5.1 % 0-5 [facility] Glucose [Mass/Vol] 124 mg/dL 74-106 [facility] Comment on above: Fasting Glucose resu lt from 100 to 125 mg/dL suggests IMPAIRED HOMEOSTASIS per A.D.A. criteria. Neutrophils (Bld) [#/Vol] 2.8 10*3/uL 2.0-7.7 [facility] Neutrophils/100 WBC (Bld) 61.6 % 47-70 [facility] Potassium [Moles/Vol] 3.7 mmol/L 3.5-5.1 [facility] Sodium [Moles/Vol] 138 mmol/L 136-145 [facility] WBC (Bld) [#/Vol] 4.5 10*3/uL 4.4-11.0 [facility] Blood erythrocytes count (nu mber/volume)Ordered By: Luis Pringle on 03-03-2023 RBC (Bld) [#/Vol] 4.63 10*6/uL 4.6-6.2 [facility] Blood hemoglobin measurement (mass/volume)Ordered By: Luis Pringle on 03-03-2023 Hemoglobin (Bld) [Mass/Vol] 13.1 g/dL 13.0-16.5 [facility] Blood lymphocytes/100 leukoc ytesOrdered By: Luis Pringle on 03-03-2023 Lymphocytes/100 WBC (Bld) 22.2 % 19-41 [facility] Blood monocytes/100 leukocyt esOrdered By: Luis Pringle on 03-03-2023 Monocytes/100 WBC (Bld) 10.0 % 0-10 [facility] Blood platelet mean volumeOr dered By: Luis Pringle on 03-03-2023 Platelet mean volume (Bld) [Entitic vol] 11.2 fL 6.2-12.0 [facility] Determination of erythrocyte mean corpuscular volume (MCV)Ordered By: Luis Pringle on 03-03-2023 MCV (RBC) [Entitic vol] 86.6 fL 80-94 [facility] Hematocrit Auto (Bld) [Volum e fraction]Ordered By: Luis Pringle on 03-03-2023 Hematocrit (Bld) [Volume fraction] 40.1 % 40-54 [facility] - Chemistry and C hemistry - challengeOrdered By: Luis Pringle on 03-03-2023 CO2 [Moles/Vol] 25.0 mmol/L 21.0-32.0 [facility] Urea nitrogen/Creatinine [Mass ratio] 18.0 mg/mg 10-20 [facility] - Hematology and Cell countsOrdered By: Luis Pringle on 03-03-2023 Erythrocyte distribution width (RBC) [Entitic vol] 41.4 fL 35.1-43.9 [facility] Erythrocyte distribution width (RBC) [Ratio] 13.2 % 11.6-14.6 [facility] Immature granulocytes/100 WBC (Bld) 0.200 % 0.0-0.9 [facility] Comment on above: IG% - Immature Granu locytes (promyelocytes, myelocytes and metamyelocytes) > 1% indicates that a LEFT SHIFT is Present. MCH (RBC) [Entitic mass] 28.3 pg 27.0-32.0 [facility] Nucleated RBC/100 WBC (Bld) [Ratio] 0 % 0-5 [facility] Auto (RBC) [Mass/Vol]Or dered By: Luis Pringle on 03-03-2023 MCHC (RBC) [Mass/Vol] 32.7 g/dL 32-36 [facility] No Panel InformationOrdered By: Luis Pringle on 03-03-2023 Estimated Creatinine Clearance Calc 71.13 ml/min [facility] Estimated GFR (MDRD) Amer 94 mL/min >60 [facility] Comment on above: GFR Calc Estimated GFR (MDRD) Non-Af Amer 78 mL/min >60 [facility] Comment on above: Non- GFR Calc Platelets bldOrdered By: Pet reji Pringle on 03-03-2023 Platelets (Bld) [#/Vol] 179 10*3/uL 150-450 [facility] Serum or plasma calcium elio urement (mass/volume)Ordered By: Luis Pringle on 03-03-2023 Calcium [Mass/Vol] 9.1 mg/dL 8.5-10.1 [facility] Serum or plasma creatinine m easurement (mass/volume)Ordered By: Luis Pringle on 03-03-2023 Creatinine [Mass/Vol] 1.00 mg/dL 0.70-1.30 [facility] Comment on above: The validity of the calculated GFR & GFRAA in patients over 70 years has not been determined. Clinical correlation is essential. Serum or plasma urea nitroge n measurement (mass/volume)Ordered By: Luis Pringle on 03-03-2023 Urea nitrogen [Mass/Vol] 18 mg/dL 7-18 [facility] Thin prep Papanicolaou smear with manual screeningOrdered By: Luis Pringle on 03-03-2023 Thin prep Papanicolaou smear with manual screening 8 5-15 [facility] .GFRon 02-07-2023 GFR 83 ml/min/1.73sqm Normal [facility] ([place]) Comment on above: Result Comment: GFR Population [...] Performed By: #### C MP, GFR #### [address] [address] GFR Non- 68 ml/min/1.73sqm Normal On [facility] Of [facility] ([place]) Comment on above: Result Comment: GFR Population [...] Performed By: #### C MP, GFR #### [address] [address] CMPon 02-07-2023 Albumin Level 3.5 G/dL Normal 3.4-4.8 [facility] ([place]) Comment on above: Performed By: #### C MP, GFR #### [address] [address] Albumin/Globulin [Mass ratio] 1.1 {ratio} Normal 1.1-2.5 [facility] Of [facility] ([place]) Comment on above: Performed By: #### C MP, GFR #### [address] [address] ALP [Catalytic activity/Vol] 87 U/L Normal 40-135 On [facility] Of [facility] ([place]) Comment on above: Performed By: #### C MP, GFR #### [address] [address] ALT [Catalytic activity/Vol] 31 U/L Normal 16-63 [facility] Of [facility] ([place]) Comment on above: Performed By: #### C MP, GFR #### [address] [address] AST [Catalytic activity/Vol] 17 U/L Normal 10-40 [facility] Of [facility] ([place]) Comment on above: Performed By: #### C MP, GFR #### [address] [address] Bili Total 0.5 mg/dL Normal 0.2-1.0 [facility] Of [facility] ([place]) Comment on above: Result Comment: Use of this assay is not recommended for patients undergoing treatment with eltrombopag due to the potential for falsely elevated results. Performed By: #### C MP, GFR #### [address] [address] BUN/Creatinine Ratio 14 ratio Normal 7-27 [facility] ([place]) Comment on above: Performed By: #### C MP, GFR #### [address] [address] Calcium [Mass/Vol] 9.6 mg/dL Normal 8.4-10.2 [facility] ([place]) Comment on above: Performed By: #### C MP, GFR #### [address] [address] Chloride [Moles/Vol] 104 mmol/L Normal 98-107 [facility] ([place]) Comment on above: Performed By: #### C MP, GFR #### [address] [address] CO2 [Moles/Vol] 29 mmol/L Normal 23-31 [facility] License Of [facility] ([place]) Comment on above: Performed By: #### C MP, GFR #### [address] [address] Creatinine [Mass/Vol] 1.06 mg/dL Normal 0.70-1.30 [facility] ([place]) Comment on above: Performed By: #### C MP, GFR #### [address] [address] Electrolyte Balance 7.0 mEq/L Normal 4.0-15.0 [facility] ([place]) Comment on above: Performed By: #### C MP, GFR #### [address] [address] Globulin 3.3 G/dL Normal On License Of [facility] ([place]) Comment on above: Performed By: #### C MP, GFR #### [address] [address] Glucose [Mass/Vol] 97 mg/dL Normal 83-110 [facility] ([place]) Comment on above: Performed By: #### C MP, GFR #### [address] [address] Potassium [Moles/Vol] 4.6 mmol/L Normal 3.5-5.1 [facility] ([place]) Comment on above: Performed By: #### C MP, GFR #### [address] [address] Sodium [Moles/Vol] 140 mmol/L Normal 136-145 [facility] ([place]) Comment on above: Performed By: #### C MP, GFR #### [address] [address] Total Protein 6.8 G/dL Normal 6.4-8.2 [facility] Of [facility] ([place]) Comment on above: Performed By: #### C MP, GFR #### [address] [address] Urea nitrogen [Mass/Vol] 15 mg/dL Normal 7-18 [facility] ([place]) Comment on above: Performed By: #### C MP, GFR #### [address] [address] Basophil percentageOrdered B y: Beto Huizar on 01-12-2023 Chloride [Moles/Vol] 107 mmol/L 98-107 [facility] Glucose [Mass/Vol] 125 mg/dL 74-106 [facility] Comment on above: Fasting Glucose resu lt from 100 to 125 mg/dL suggests IMPAIRED HOMEOSTASIS per A.D.A. criteria. Potassium [Moles/Vol] 4.0 mmol/L 3.5-5.1 [facility] Sodium [Moles/Vol] 137 mmol/L 136-145 [facility] WBC (Bld) [#/Vol] 5.3 10*3/uL 4.4-11.0 [facility] Blood erythrocytes count (nu mber/volume)Ordered By: Beto Huizar on 01-12-2023 RBC (Bld) [#/Vol] 4.63 10*6/uL 4.6-6.2 [facility] Blood hemoglobin measurement (mass/volume)Ordered By: Beto Huizar on 01-12-2023 Hemoglobin (Bld) [Mass/Vol] 13.6 g/dL 13.0-16.5 [facility] Blood platelet mean volumeOr dered By: Beto Huizar on 01-12-2023 Platelet mean volume (Bld) [Entitic vol] 11.4 fL 6.2-12.0 [facility] Determination of erythrocyte mean corpuscular volume (MCV)Ordered By: Beto Huizar on 01-12-2023 MCV (RBC) [Entitic vol] 86.6 fL 80-94 [facility] Hematocrit Auto (Bld) [Volum e fraction]Ordered By: [facility] on 01-12-2023 Hematocrit (Bld) [Volume fraction] 40.1 % 40-54 [facility] - Chemistry and C hemistry - challengeOrdered By: Beto Huizar on 01-12-2023 CO2 [Moles/Vol] 23.0 mmol/L 21.0-32.0 [facility] Urea nitrogen/Creatinine [Mass ratio] 16.3 mg/mg 10-20 [facility] - Hematology and Cell countsOrdered By: Beto Huizar on 01-12-2023 Erythrocyte distribution width (RBC) [Entitic vol] 40.9 fL 35.1-43.9 [facility] Erythrocyte distribution width (RBC) [Ratio] 13.1 % 11.6-14.6 [facility] MCH (RBC) [Entitic mass] 29.4 pg 27.0-32.0 [facility] ([facility] [Mass/Vol]Or dered By: Beto Huizar on 01-12-2023 MCHC (RBC) [Mass/Vol] 33.9 g/dL 32-36 [facility] No Panel InformationOrdered By: Beto Huizar on 01-12-2023 Estimated GFR (MDRD) Amer 103 mL/min >60 [facility] Comment on above: GFR Calc Estimated GFR (MDRD) Non-Af Amer 85 mL/min >60 [facility] Comment on above: Non- GFR Calc Platelets bldOrdered By: Sudha Huizar on 01-12-2023 Platelets (Bld) [#/Vol] 198 10*3/uL 150-450 [facility] Serum or plasma calcium elio urement (mass/volume)Ordered By: Beto Huizar on 01-12-2023 Calcium [Mass/Vol] 9.1 mg/dL 8.5-10.1 [facility] Serum or plasma creatinine m easurement (mass/volume)Ordered By: Beto Huizar on 01-12-2023 Creatinine [Mass/Vol] 0.92 mg/dL 0.70-1.30 [facility] Comment on above: The validity of the calculated GFR & GFRAA in patients over 70 years has not been determined. Clinical correlation is essential. Serum or plasma urea nitroge n measurement (mass/volume)Ordered By: Beto Huizar on 01-12-2023 Urea nitrogen [Mass/Vol] 15 mg/dL 7-18 [facility] Thin prep Papanicolaou smear with manual screeningOrdered By: Beto Huizar on 01-12-2023 Thin prep Papanicolaou smear with manual screening 7 5-15 [facility] No Panel InformationOrdered By: Aneudy Santiago on 01-05-2023 Prostate Specific Antigen Total < 0.01 ng/mL 0.0-4.0 [facility] Comment on above: This test was perfor med using the TPSA assay method [facility]. Values obtained with differentassay methods cannot be used interchangably.When changing PSA assays in the course of monitoring apatient, additional sequential testing should be carriedout to confirm baseline values. No Panel InformationOrdered By: FARIBA Archibald on 09-29-2022 Prostate Specific Antigen Total < 0.01 ng/mL 0.0-4.0 [facility] Comment on above: This test was perfor med using the TPSA assay method for [facility] chemistry system. Values obtained with differentassay methods [...] 09/26/2022 9:35:05 PM Ordering Provider: AISSATOU TRUJILLO [facility] ([place]) Basophil percentageOrdered B y: Yvon Yang on 08-27-2022 Chloride [Moles/Vol] 107 mmol/L 98-107 [facility] Glucose [Mass/Vol] 106 mg/dL 74-106 [facility] Comment on above: Fasting Glucose resu lt from 100 to 125 mg/dL suggests IMPAIRED HOMEOSTASIS per A.D.A. criteria. Potassium [Moles/Vol] 3.9 mmol/L 3.5-5.1 [facility] Sodium [Moles/Vol] 140 mmol/L 136-145 [facility] WBC (Bld) [#/Vol] 4.5 10*3/uL 4.4-11.0 [facility] Blood erythrocytes count (nu mber/volume)Ordered By: Yvon Yang on 08-27-2022 RBC (Bld) [#/Vol] 4.33 10*6/uL 4.6-6.2 [facility] Blood hemoglobin measurement (mass/volume)Ordered By: Yvon Yang on 08-27-2022 Hemoglobin (Bld) [Mass/Vol] 12.7 g/dL 13.0-16.5 [facility] Blood platelet mean volumeOr dered By: Yvon Yang on 08-27-2022 Platelet mean volume (Bld) [Entitic vol] 10.8 fL 6.2-12.0 [facility] Determination of erythrocyte mean corpuscular volume (MCV)Ordered By: Yvon Yang on 08-27-2022 MCV (RBC) [Entitic vol] 87.5 fL 80-94 [facility] Hematocrit Auto (Bld) [Volum e fraction]Ordered By: Yvon Yang on 08-27-2022 Hematocrit (Bld) [Volume fraction] 37.9 % 40-54 [facility] - Chemistry and C hemistry - challengeOrdered By: Yvon Yang on 08-27-2022 CO2 [Moles/Vol] 24.0 mmol/L 21.0-32.0 [facility] Natriuretic peptide B (Bld) [Mass/Vol] 16.9 pg/mL 0-100 [facility] Urea nitrogen/Creatinine [Mass ratio] 17.3 mg/mg 10-20 [facility] - Hematology and Cell countsOrdered By: Yvon Yang on 08-27-2022 Erythrocyte distribution width (RBC) [Entitic vol] 43.3 fL 35.1-43.9 [facility] Erythrocyte distribution width (RBC) [Ratio] 13.4 % 11.6-14.6 [facility] MCH (RBC) [Entitic mass] 29.3 pg 27.0-32.0 [facility] MCHC Auto (RBC) [Mass/Vol]Or dered By: Yvon Yang on 08-27-2022 MCHC (RBC) [Mass/Vol] 33.5 g/dL 32-36 [facility] No Panel InformationOrdered By: Yvon Yang on 08-27-2022 Estimated GFR (MDRD) Amer 96 mL/min >60 [facility] Comment on above: GFR Calc Estimated GFR (MDRD) Non-Af Amer 80 mL/min >60 [facility] Comment on above: Non- GFR Calc Thyroid Stimulating Hormone (TSH) 1.02 uIU/mL 0.358-3.74 [facility] Platelets bldOrdered By: Gordo Yang on 08-27-2022 Platelets (Bld) [#/Vol] 189 10*3/uL 150-450 [facility] Serum or plasma calcium elio urement (mass/volume)Ordered By: Yvon Yang on 08-27-2022 Calcium [Mass/Vol] 9.1 mg/dL 8.5-10.1 [facility] Serum or plasma creatinine m easurement (mass/volume)Ordered By: Yvon Yang on 08-27-2022 Creatinine [Mass/Vol] 0.98 mg/dL 0.70-1.30 [facility] Comment on above: The validity of the calculated GFR & GFRAA in patients over 70 years has not been determined. Clinical correlation is essential. Serum or plasma urea nitroge n measurement (mass/volume)Ordered By: Yvon Yang on 08-27-2022 Urea nitrogen [Mass/Vol] 17 mg/dL 7-18 [facility] Thin prep Papanicolaou smear with manual screeningOrdered By: Yvon Yang on 08-27-2022 Thin prep Papanicolaou smear with manual screening 9 5-15 [facility] Basophil percentageOrdered B y: Dr. Huizar on 08-18-2022 Creatinine [Mass/Vol] 1.0 mg/dL 0.70-1.30 [facility] No Panel InformationOrdered By: Dr. Huizar on 08-18-2022 Bedside Estimated GFR (eGFR) > 60.0000 mL/min >60 [facility] Basophil percentageOrdered B y: Yvon Yang on 06-01-2022 Chloride [Moles/Vol] 105 mmol/L 98-107 [facility] Glucose [Mass/Vol] 79 mg/dL 74-106 [facility] Potassium [Moles/Vol] 4.3 mmol/L 3.5-5.1 [facility] Sodium [Moles/Vol] 136 mmol/L 136-145 [facility] - Chemistry and C hemistry - challengeOrdered By: Yvon Yang on 06-01-2022 CO2 [Moles/Vol] 28.0 mmol/L 21.0-32.0 [facility] Urea nitrogen/Creatinine [Mass ratio] 26.6 mg/mg 10-20 [facility] No Panel InformationOrdered By: Yvon Yang on 06-01-2022 Estimated GFR (MDRD) Amer 106 mL/min >60 [facility] Comment on above: GFR Calc Estimated GFR (MDRD) Non-Af Amer 88 mL/min >60 [facility] Comment on above: Non- GFR Calc Serum or plasma calcium elio urement (mass/volume)Ordered By: Yvon Yang on 06-01-2022 Calcium [Mass/Vol] 9.1 mg/dL 8.5-10.1 [facility] Serum or plasma creatinine m easurement (mass/volume)Ordered By: Yvon Yang on 06-01-2022 Creatinine [Mass/Vol] 0.90 mg/dL 0.70-1.30 [facility] Comment on above: The validity of the calculated GFR & GFRAA in patients over 70 years has not been determined. Clinical correlation is essential. Serum or plasma urea nitroge n measurement (mass/volume)Ordered By: Yvon Yang on 06-01-2022 Urea nitrogen [Mass/Vol] 24 mg/dL -18 [facility] Thin prep Papanicolaou smear with manual screeningOrdered By: Yvon Yang on 06-01-2022 Thin prep Papanicolaou smear with manual screening 3 5-15 [facility] No Panel InformationOrdered By: Dr. Santiago on 03-24-2022 Prostate Specific Antigen Total 0.49 ng/mL 0.0-4.0 [facility] Comment on above: This test was perfor med using the TPSA assay method [facility]. Values obtained with differentassay methods cannot be used interchangably.When changing PSA assays in the course of monitoring apatient, additional sequential testing should be carriedout to confirm baseline values. Basophil percentageOrdered B y: Dr. Hadley on 10-10-2022 Chloride [Moles/Vol] 105 mmol/L 98-107 [facility] Glucose [Mass/Vol] 84 mg/dL 74-106 [facility] Potassium [Moles/Vol] 4.3 mmol/L 3.5-5.1 [facility] Sodium [Moles/Vol] 138 mmol/L 136-145 [facility] WBC (Bld) [#/Vol] 6.4 10*3/uL 4.4-11.0 [facility] Blood erythrocytes count (nu mber/volume)Ordered By: Dr. Hadley on 12-14-2021 RBC (Bld) [#/Vol] 5.36 10*6/uL 4.6-6.2 [facility] Blood hemoglobin measurement (mass/volume)Ordered By: Dr. Hadley on 12-14-2021 Hemoglobin (Bld) [Mass/Vol] 15.0 g/dL 13.0-16.5 [facility] Blood platelet mean volumeOr dered By: Dr. Hadley on 12-14-2021 Platelet mean volume (Bld) [Entitic vol] 11.3 fL 6.2-12.0 [facility] Determination of erythrocyte mean corpuscular volume (MCV)Ordered By: Dr. Hadley on 12-14-2021 MCV (RBC) [Entitic vol] 84.7 fL 80-94 [facility] Hematocrit Auto (Bld) [Volum e fraction]Ordered By: Dr. Hadley on 12-14-2021 Hematocrit (Bld) [Volume fraction] 45.4 % 40-54 [facility] - Chemistry and C hemistry - challengeOrdered By: Dr. Hadley on 12-14-2021 CO2 [Moles/Vol] 26.0 mmol/L 21.0-32.0 [facility] Urea nitrogen/Creatinine [Mass ratio] 15.3 mg/mg 10-20 [facility] - Hematology and Cell countsOrdered By: Dr. Hadley on 12-14-2021 Erythrocyte distribution width (RBC) [Entitic vol] 43.5 fL 35.1-43.9 [facility] Erythrocyte distribution width (RBC) [Ratio] 14.2 % 11.6-14.6 [facility] MCH (RBC) [Entitic mass] 28.0 pg 27.0-32.0 [facility] Auto (RBC) [Mass/Vol]Or dered By: Dr. Hadley on 12-14-2021 MCHC (RBC) [Mass/Vol] 33.0 g/dL 32-36 [facility] No Panel InformationOrdered By: Dr. Hadley on 12-14-2021 Estimated GFR (MDRD) Amer 114 mL/min >60 [facility] Comment on above: GFR Calc Estimated GFR (MDRD) Non-Af Amer 94 mL/min >60 [facility] Comment on above: Non- GFR Calc Platelets bldOrdered By: Dr. Hadley on 12-14-2021 Platelets (Bld) [#/Vol] 199 10*3/uL 150-450 [facility] Serum or plasma calcium elio urement (mass/volume)Ordered By: Dr. Hadley on 12-14-2021 Calcium [Mass/Vol] 9.4 mg/dL 8.5-10.1 [facility] Serum or plasma creatinine m easurement (mass/volume)Ordered By: Dr. Hadley on 12-14-2021 Creatinine [Mass/Vol] 0.85 mg/dL 0.70-1.30 [facility] Comment on above: The validity of the calculated GFR & GFRAA in patients over 70 years has not been determined. Clinical correlation is essential. Serum or plasma urea nitroge n measurement (mass/volume)Ordered By: Dr. Hadley on 12-14-2021 Urea nitrogen [Mass/Vol] 13 mg/dL 7-18 [facility] Thin prep Papanicolaou smear with manual screeningOrdered By: Dr. Hadley on 12-14-2021 Thin prep Papanicolaou smear with manual screening 7 5-15 [facility] LABORATORYOrdered By: Pam Cortes on 09-30-2021 [...] SS HAS SYMPTOMS RELATED TO CONDITION OF INTEREST:FIND:PT:^KRISTY T:ORD: Yes (09/30/21 12:00 PM) Invalid Interpretation [...] specimens, or inadequate numbers of organisms for amplification.LORNA SARS-CoV-2 Assay is a Real-Time reverse-transcripta se [...] 2021 WBC (Bld) [#/Vol] 5.5 10*3/uL 4.4-11.0 [facility] Work Phone: Blood erythrocytes count (nu mber/volume)on 09-23-2021 RBC (Bld) [#/Vol] 5.03 10*6/uL 4.6-6.2 [facility] Work Phone: Blood hemoglobin measurement (mass/volume)on 09-23-2021 Hemoglobin (Bld) [Mass/Vol] 13.8 g/dL 13.0-16.5 [facility] Work Phone: Blood platelet mean volumeon 09-23-2021 Platelet mean volume (Bld) [Entitic vol] 11.9 fL 6.2-12.0 [facility] Work Phone: Determination of erythrocyte mean corpuscular volume (MCV)on 09-23-2021 MCV (RBC) [Entitic vol] 85.5 fL 80-94 [facility] Work Phone: Hematocrit Auto (Bld) [Volum e fraction]on 09-23-2021 Hematocrit (Bld) [Volume fraction] 43.0 % 40-54 [facility] Work Phone: Laboratory - Hematology and Cell countson 09-23-2021 Erythrocyte distribution width (RBC) [Entitic vol] 42.5 fL 35.1-43.9 [facility] [facility] Erythrocyte distribution width (RBC) [Ratio] 13.7 % 11.6-14.6 [facility] Work Phone: MCH (RBC) [Entitic mass] 27.4 pg 27.0-32.0 [facility] Work Phone: MCHC Auto (RBC) [Mass/Vol]on 09-23-2021 MCHC (RBC) [Mass/Vol] 32.1 g/dL 32-36 [facility] Work Phone: Platelets bldon 09-23-2021 Platelets (Bld) [#/Vol] 186 10*3/uL 150-450 [facility] Work Phone: LABORATORYOrdered By: Mina Lozano [...] ADM SS LABORATORYOrdered By: SYSTEM SYSTEM on 06-20-2022 GFR 73 ml/min/1.73sqm Invalid Interpretation Code AO Chemistry S GFR Non- 60 ml/min/1.73sqm Inval id Interpretation Code AO Chemistry S Basophil percentageon 2021 Basophil percentage < 0.9 mg/dL 0.70-1.30 [facility] Work Phone: No Panel Informationon 08-05 Bedside Estimated GFR (eGFR) > 60.0000 mL/min >60 [facility] Work Phone: No Panel Informationon 07-21 Prostate Specific Antigen Total 27.80 ng/mL 0.0-4.0 [facility] Work Phone: Comment on above: This test was perfor med using the TPSA assay method for [facility] chemistry system. Values obtained with differentassay methods cannot be used interchangably.When changing PSA assays in the course of monitoring apatient, additional sequential testing should be carriedout to confirm baseline values. [facility] Surgical Pathology Depar tmenton 07-03-2020 [facility] Surgical Pathology Department Name RAMIRO LALA Pathologist: LINDY FENG MD Date of Procedure: 07/03/2020 Date Received: 07/04/2020 Date Reported 07/07/2020 Submitting Physician: LAURIE QUINONES DO Location: [facility] Copy To/Referring/Attend ing: AISSATOU TRUJILLO [facility] Other External # FINAL DIAGNOSIS A. DESCENDING COLON, POLYPECTOMIES: --FRAGMENTS OF SESSILE SERRATED ADENOMA. Electronically Signed Out By LINDY FENG MD/[facility] By the signature on this report, the [...] is submitted in toto in one cassette. KARIME brock/07/06/2020 [facility] Department of Pathology [address] [place] [address] Normal [facility] Comment on above: Performed By: #### [facility] #### [facility] Surgical Pathology Department [address] [place] [address] CORONAVIRUS 2019, SCREEN ASY MPTOMATICon 07-02-2020 SARS-CoV-2 (COVID-19) RNA AYLIN+probe Ql (Unsp spec) Not detected Normal Not Detected [facility] Comment on above: Result Comment: . This [...] this test method. Fact sheet for providers: https://www.fda.gov/media/644841/download Fact sheet for patients: https://www.fda.gov/media/153917/download This test has received FDA Emergency Use Authorization [EUA] and has been verified by [facility] ([facility]). This test is only authorized for the duration of time that circumstances exist to justify the authorization of the emergency use of in vitro diagnostic tests for the detection of SARS-CoV-2 virus and/or diagnosis of COVID-19 infection under section 564(b)(1) of the Act, 21 U.S.C. 360bbb-3(b)(1), unless the authorization is terminated or revoked sooner. [facility] is certified under CLIA-88 as qualified to perform high complexity testing. Testing is performed in the [facility] laboratories located at [address] [place] [address]. Performed By: #### [facility] #### [place] [address] Covid 19 Resultson SARS-CoV-2 (COVID-19) RNA AYLIN+probe Ql (Unsp spec) NEGATIVE COVID-19 Test Coronaviruses [...] You may also be contacted by the [facility] to see if any of your close [...] or Naproxen (Aleve) can also be used. Bgxw-fnz-odmpmeh cough and cold medicines can be used according to the instructions on the package. Some mqqp-ckq-ekovqkn medicines also contain acetaminophen. Make sure you [...] water are not available, use alcohol-based hand senior oracle applications developer. Avoid touching your eyes, nose, and mouth [...] 24 sofía (more content not included)... Normal [facility] CORONAVIRUS 2019, SCREEN ASY MPTOMATICon 04-27-2021 Lab Specimen Source Nasal, Nasopharyngeal Normal [facility] Comment on above: Performed By: #### [facility] #### [facility] [address] [place] [address] Vital Signs Date Time Vital Sign Value Performing Clinician Facility 08-01-2024 06:36-0400 Body height 180.34 cm Aissatou Trujillo [employer] Work Phone: [facility] 08-01-2024 06:36-0400 Body mass index (BMI) [Ratio] 36.8 kg/m2 Aissatou Trujillo [employer] [employer] Work Phone: [facility] 08-01-2024 06:36-0400 Body weight 119.74 kg Aissatou Trujillo [employer] Work Phone: [facility] 08-01-2024 06:36-0400 Diastolic blood pressure 74 mm[Hg] Aissatou Trujillo [employer] [employer] Work Phone: [facility] 08-01-2024 06:36-0400 Heart rate 61 /min Aissatou Trujillo [employer] Work Phone: [facility] 08-01-2024 06:36-0400 Respiratory rate 18 /min Aissatou Trujillo [employer] Work Phone: [facility] 08-01-2024 06:36-0400 SaO2% (BldA) [Mass fraction] 93 % Aissatou Trujillo [employer] Work Phone: [facility] 08-01-2024 06:36-0400 Systolic blood pressure 143 mm[Hg] Aissatou Trujillo [employer] [employer] Work Phone: [facility] 07-10-2024 13:01-0400 Body mass index (BMI) [Ratio] 37.9 kg/m2 Aissatou Trujillo [employer] Work Phone: [facility] 07-10-2024 13:01-0400 Body temperature 97.4 [degF] Aissatou Trujillo [employer] [employer] Work Phone: [facility] 07-10-2024 13:01-0400 Body weight 123.43 kg Aissatou Trujillo [employer] Work Phone: [facility] 07-10-2024 13:01-0400 Diastolic blood pressure 77 mm[Hg] Aissatou Trujillo [employer] [employer] Work Phone: [facility] 07-10-2024 13:01-0400 Heart rate 79 /min Aissatou Trujillo [employer] Work Phone: [facility] 07-10-2024 13:01-0400 Respiratory rate 18 /min Aissatou Trujillo [employer] [employer] Work Phone: [facility] 07-10-2024 13:01-0400 SaO2% (BldA) [Mass fraction] 93 % Aissatou Trujillo [employer] Work Phone: [facility] 07-10-2024 13:01-0400 Systolic blood pressure 134 mm[Hg] Aissatou Trujillo [employer] Work Phone: [facility] 07-10-2024 12:58-0400 Body mass index (BMI) [Ratio] 37.9 kg/m2 Aissatou Trujillo [employer] Work Phone: [facility] 07-10-2024 12:58-0400 Body weight 123.37 kg Aissatou Darin [employer] Work Phone: [facility] 07-10-2024 12:58-0400 Diastolic blood pressure 72 mm[Hg] Aissatou Trujillo [employer] Work Phone: [facility] 07-10-2024 12:58-0400 Heart rate 85 /min Aissatou Trujillo [employer] Work Phone: [facility] 07-10-2024 12:58-0400 Respiratory rate 18 /min Aissatou Trujillo [employer] Work Phone: [facility] 07-10-2024 12:58-0400 SaO2% (BldA) [Mass fraction] 92 % Aissatou Trujillo [employer] Work Phone: [facility] 07-10-2024 12:58-0400 Systolic blood pressure 176 mm[Hg] Aissatou Trujillo [employer] Work Phone: [facility] 06-21-2024 12:07-0400 Body temperature 97.7 [degF] Aissatou Trujillo [employer] Work Phone: [facility] 06-21-2024 12:07-0400 Diastolic blood pressure 80 mm[Hg] Aissatou Trujillo [employer] Work Phone: [facility] 06-21-2024 12:07-0400 Heart rate 53 /min Aissatou Trujillo [employer] Work Phone: [facility] 06-21-2024 12:07-0400 Respiratory rate 20 /min Aissatou Trujillo [employer] Work Phone: [facility] 06-21-2024 12:07-0400 SaO2% (BldA) [Mass fraction] 98 % Aissatou Trujillo [employer] Work Phone: [facility] 06-21-2024 12:07-0400 Systolic blood pressure 120 mm[Hg] Aissatou Trujillo [employer] Work Phone: [facility] 06-21-2024 11:39-0400 Inhaled oxygen flow rate 2 L/min Aissatou Trujillo [employer] Work Phone: [facility] 06-21-2024 09:26-0400 Body height 180.34 cm Aissatou Trujillo [employer] Work Phone: [facility] 06-21-2024 09:26-0400 Body mass index (BMI) [Ratio] 38.4 kg/m2 Aissatou Trujillo [employer] Work Phone: [facility] 06-21-2024 09:26-0400 Body weight 124.9 kg Aissatou Trujillo [employer] Work Phone: [facility] 05-25-2024 07:40-0400 Body mass index (BMI) [Ratio] 36.6 kg/m2 Aissatou Trujillo [employer] Work Phone: [facility] 05-25-2024 07:40-0400 Body weight 122.46 kg Aissatou Darin [employer] Work Phone: [facility] 05-25-2024 07:40-0400 Diastolic blood pressure 56 mm[Hg] Aissatou Darin [employer] Work Phone: [facility] 05-25-2024 07:40-0400 Heart rate 53 /min Aissatou Trujillo [employer] Work Phone: [facility] 05-25-2024 07:40-0400 Respiratory rate 20 /min Aissatou Darin [employer] Work Phone: [facility] 05-25-2024 07:40-0400 SaO2% (BldA) [Mass fraction] 95 % Aissatou Darin [employer] Work Phone: [facility] 05-25-2024 07:40-0400 Systolic blood pressure 118 mm[Hg] Aissatou Trujillo [employer] Work Phone: [facility] 11-29-2023 08:44-0400 Body height 182.9 cm Maurice Fulton MD Work Phone: [facility] 11-29-2023 08:44-0400 Body mass index (BMI) [Ratio] 36.75 kg/m2 Maurice Fulton MD Work Phone: [facility] 11-29-2023 08:44-0400 Body weight 122.92 kg Maurice Fulton MD Work Phone: [facility] 11-29-2023 08:44-0400 Diastolic blood pressure 60 mm[Hg] Maurice Fulton MD Work Phone: [facility] 11-29-2023 08:44-0400 Heart rate 61 /min Maurice Fulton MD Work Phone: [facility] 11-29-2023 08:44-0400 SaO2% (BldA) [Mass fraction] 94 % Maurice Fulton MD Work Phone: [facility] 11-29-2023 08:44-0400 Systolic blood pressure 116 mm[Hg] Maurice Fulton MD Work Phone: [facility] 07-11-2023 10:20-0400 Body height 182.88 cm [employer] Aissatou Trujillo [employer] Work Phone: [facility] 07-11-2023 10:20-0400 Body mass index (BMI) [Ratio] 36.3 kg/m2 [employer] Aissatou Trujillo [employer] Work Phone: [facility] 07-11-2023 10:20-0400 Body temperature 98.1 [degF] [employer] Aissatou Trujillo [employer] Work Phone: [facility] 07-11-2023 10:20-0400 Body weight 121.73 kg [employer] Aissatou Trujillo [employer] Work Phone: [facility] 07-11-2023 10:20-0400 Diastolic blood pressure 70 mm[Hg] [employer] Aissatou Trujillo [employer] Work Phone: [facility] 07-11-2023 10:20-0400 Heart rate 57 /min [employer] Aissatou Trujillo [employer] Work Phone: [facility] 07-11-2023 10:20-0400 Respiratory rate 18 /min [employer] Aissatou Trujillo [employer] Work Phone: [facility] 07-11-2023 10:20-0400 SaO2% (BldA) [Mass fraction] 93 % [employer] Aissatou Trujillo [employer] Work Phone: [facility] 07-11-2023 10:20-0400 Systolic blood pressure 122 mm[Hg] [employer] Aissatou Trujillo [employer] Work Phone: [facility] 03-03-2023 14:20-0500 Heart rate 94 /min [employer] Aissatou Trujillo [employer] Work Phone: [facility] 03-03-2023 14:20-0500 Respiratory rate 16 /min [employer] Aissatou Trujillo [employer] Work Phone: [facility] 03-03-2023 14:00-0500 Diastolic blood pressure 74 mm[Hg] [employer] Aissatou Trujillo [employer] Work Phone: [facility] 03-03-2023 14:00-0500 SaO2% (BldA) [Mass fraction] 95 % [employer] Aissatou Trujillo [employer] Work Phone: [facility] 03-03-2023 14:00-0500 Systolic blood pressure 141 mm[Hg] [employer] Aissatou Trujillo [employer] Work Phone: [facility] 03-03-2023 10:20-0500 Body height 182.88 cm [employer] Aissatou Trujillo [employer] Work Phone: [facility] 03-03-2023 10:20-0500 Body mass index (BMI) [Ratio] 35.4 kg/m2 [employer] Aissatou Trujillo [employer] Work Phone: [facility] 03-03-2023 10:20-0500 Body temperature 98.3 [degF] [employer] Aissatou Trujillo [employer] Work Phone: [facility] 03-03-2023 10:20-0500 Body weight 118.6 kg [employer] Aissatou Trujillo [employer] Work Phone: [facility] 02-24-2023 10:15-0500 Body mass index (BMI) [Ratio] 35.3 kg/m2 [employer] Aissatou Trujillo [employer] Work Phone: [facility] 02-24-2023 10:15-0500 Body temperature 97.7 [degF] [employer] Aissatou Trujillo [employer] Work Phone: [facility] 02-24-2023 10:15-0500 Body weight 118.16 kg [employer] Aissatou Trujillo [employer] Work Phone: [facility] 02-24-2023 10:15-0500 Diastolic blood pressure 69 mm[Hg] [employer] Aissatou rTujillo [employer] Work Phone: [facility] 02-24-2023 10:15-0500 Heart rate 66 /min [employer] Aissatou Trujillo [employer] Work Phone: [facility] 02-24-2023 10:15-0500 Respiratory rate 16 /min [employer] Aissatou Trujillo [employer] Work Phone: [facility] 02-24-2023 10:15-0500 SaO2% (BldA) [Mass fraction] 93 % [employer] Aissatou Trujillo [employer] Work Phone: [facility] 02-24-2023 10:15-0500 Systolic blood pressure 106 mm[Hg] [employer] Aissatou Trujillo [employer] Work Phone: [facility] 01-18-2023 09:30-0500 Body temperature 97.4 [degF] [employer] Aissatou Trujillo [employer] Work Phone: [facility] 01-18-2023 09:30-0500 Diastolic blood pressure 69 mm[Hg] [employer] Aissatou Trujillo [employer] Work Phone: [facility] 01-18-2023 09:30-0500 Heart rate 71 /min [employer] Aissatou Trujillo [employer] Work Phone: [facility] 01-18-2023 09:30-0500 Respiratory rate 16 /min [employer] Aissatou Trujillo [employer] Work Phone: [facility] 01-18-2023 09:30-0500 SaO2% (BldA) [Mass fraction] 98 % [employer] Aissatou Trujillo [employer] Work Phone: [facility] 01-18-2023 09:30-0500 Systolic blood pressure 115 mm[Hg] [employer] Aissatou Trujillo [employer] Work Phone: [facility] 01-18-2023 06:23-0500 Body mass index (BMI) [Ratio] 35.3 kg/m2 [employer] Aissatou Trujillo [employer] Work Phone: [facility] 01-18-2023 06:23-0500 Body weight 118.1 kg [employer] Aissatou Trujillo [employer] Work Phone: [facility] 11-18-2022 08:22-0400 Body height 182.88 cm [employer] Aissatou Trujillo [employer] Work Phone: [facility] 11-18-2022 08:22-0400 Body mass index (BMI) [Ratio] 34.9 kg/m2 [employer] Aissatuo Trujillo [employer] Work Phone: [facility] 11-18-2022 08:22-0400 Body weight 117.02 kg [employer] Aissatou Trujillo [employer] Work Phone: [facility] 11-18-2022 08:22-0400 Diastolic blood pressure 80 mm[Hg] [employer] Aissatou Trujillo [employer] Work Phone: [facility] 11-18-2022 08:22-0400 Heart rate 65 /min [employer] Aissatou Trujillo [employer] Work Phone: [facility] 11-18-2022 08:22-0400 Respiratory rate 18 /min [employer] Aissatou Trujillo [employer] Work Phone: [facility] 11-18-2022 08:22-0400 Systolic blood pressure 134 mm[Hg] [employer] Aissatou Trujillo [employer] Work Phone: [facility] 08-26-2022 13:43-0400 Body height 182.88 cm [employer] Aissatou Trujillo [employer] Work Phone: [facility] 08-26-2022 13:43-0400 Body mass index (BMI) [Ratio] 34.4 kg/m2 [employer] Aissatou Trujillo [employer] Work Phone: [facility] 08-26-2022 13:43-0400 Body temperature 97.5 [degF] [employer] Aissatou Trujillo [employer] Work Phone: [facility] 08-26-2022 13:43-0400 Body weight 114.98 kg [employer] Aissatou Trujillo [employer] Work Phone: [facility] 08-26-2022 13:43-0400 Diastolic blood pressure 64 mm[Hg] [employer] Aissatou Trujillo [employer] Work Phone: [facility] 08-26-2022 13:43-0400 Heart rate 94 /min [employer] Aissatou Trujillo [employer] Work Phone: [facility] 08-26-2022 13:43-0400 Respiratory rate 16 /min [employer] Aissatou Trujillo [employer] Work Phone: [facility] 08-26-2022 13:43-0400 SaO2% (BldA) [Mass fraction] 94 % [employer] Aissatou Trujillo [employer] Work Phone: [facility] 08-26-2022 13:43-0400 Systolic blood pressure 100 mm[Hg] [employer] Aissatou Trujillo [employer] Work Phone: [facility] 07-14-2022 10:25-0400 Body height 182.88 cm [employer] Aissatou Trujillo [employer] Work Phone: [facility] 07-14-2022 10:23-0400 Body mass index (BMI) [Ratio] 33.7 kg/m2 [employer] Aissatou Trujillo [employer] Work Phone: [facility] 07-14-2022 10:23-0400 Body temperature 97.1 [degF] [employer] Aissatou Trujillo [employer] Work Phone: [facility] 07-14-2022 10:23-0400 Body weight 113 kg [employer] Aissatou Trujillo [employer] Work Phone: [facility] 07-14-2022 10:23-0400 Diastolic blood pressure 75 mm[Hg] [employer] Aissatou Trujillo [employer] Work Phone: [facility] 07-14-2022 10:23-0400 Heart rate 58 /min [employer] Aissatou Trujillo [employer] Work Phone: [facility] 07-14-2022 10:23-0400 Respiratory rate 18 /min [employer] Aissatou Trujillo [employer] Work Phone: [facility] 07-14-2022 10:23-0400 SaO2% (BldA) [Mass fraction] 97 % [employer] Aissatou Trujillo [employer] Work Phone: [facility] 07-14-2022 10:23-0400 Systolic blood pressure 136 mm[Hg] [employer] Aissatou Trujillo [employer] Work Phone: [facility] 07-07-2022 10:39-0400 Body mass index (BMI) [Ratio] 34.2 kg/m2 [employer] Aissatou Trujillo [employer] Work Phone: [facility] 07-07-2022 10:39-0400 Body temperature 97.5 [degF] [employer] Aissatou Trujillo [employer] Work Phone: [facility] 07-07-2022 10:39-0400 Body weight 114.44 kg [employer] Aissatou Trujillo [employer] Work Phone: [facility] 07-07-2022 10:39-0400 Diastolic blood pressure 73 mm[Hg] [employer] Aissatou Trujillo [employer] Work Phone: [facility] 07-07-2022 10:39-0400 Heart rate 61 /min [employer] Aissatou Trujillo [employer] Work Phone: [facility] 07-07-2022 10:39-0400 Respiratory rate 18 /min [employer] Aissatou Trujillo [employer] Work Phone: [facility] 07-07-2022 10:39-0400 SaO2% (BldA) [Mass fraction] 95 % [employer] Aissatou Trujillo [employer] Work Phone: [facility] 07-07-2022 10:39-0400 Systolic blood pressure 120 mm[Hg] [employer] Aissatou Trujillo [employer] Work Phone: [facility] 06-30-2022 10:42-0400 Body mass index (BMI) [Ratio] 33.9 kg/m2 [employer] Aissatou Trujillo [employer] Work Phone: [facility] 06-30-2022 10:42-0400 Body temperature 97.4 [degF] [employer] Aissatou Trujillo [employer] Work Phone: [facility] 06-30-2022 10:42-0400 Body weight 113.51 kg [employer] Aissatou Trujillo [employer] Work Phone: [facility] 06-30-2022 10:42-0400 Diastolic blood pressure 71 mm[Hg] [employer] Aissatou Trujillo [employer] Work Phone: [facility] 06-30-2022 10:42-0400 Heart rate 57 /min [employer] Aissatou Trujillo [employer] Work Phone: [facility] 06-30-2022 10:42-0400 Respiratory rate 18 /min [employer] Aissatou Trujillo [employer] Work Phone: [facility] 06-30-2022 10:42-0400 SaO2% (BldA) [Mass fraction] 93 % [employer] Aissatou Trujillo [employer] Work Phone: [facility] 06-30-2022 10:42-0400 Systolic blood pressure 112 mm[Hg] [employer] Aissatou Trujillo [employer] Work Phone: [facility] 06-23-2022 11:03-0400 Body mass index (BMI) [Ratio] 34 kg/m2 [employer] Aissatou Hoganson [employer] Work Phone: [facility] 06-23-2022 11:03-0400 Body temperature 97.5 [degF] [employer] Aissatou Trujillo [employer] Work Phone: [facility] 06-23-2022 11:03-0400 Body weight 113.96 kg [employer] Aissatou Trujillo [employer] Work Phone: [facility] 06-23-2022 11:03-0400 Diastolic blood pressure 73 mm[Hg] [employer] Aissatou Hoganson [employer] Work Phone: [facility] 06-23-2022 11:03-0400 Heart rate 54 /min [employer] Aissatou Trujillo [employer] Work Phone: [facility] 06-23-2022 11:03-0400 Respiratory rate 16 /min [employer] Aissatou Trujillo [employer] Work Phone: [facility] 06-23-2022 11:03-0400 SaO2% (BldA) [Mass fraction] 94 % [employer] Aissatou Hoganson [employer] Work Phone: [facility] 06-23-2022 11:03-0400 Systolic blood pressure 135 mm[Hg] [employer] Aissatou Hoganson [employer] Work Phone: [facility] 06-16-2022 10:46-0400 Body mass index (BMI) [Ratio] 33.5 kg/m2 [employer] Aissatou Hoganson [employer] Work Phone: [facility] 06-16-2022 10:46-0400 Body temperature 97.4 [degF] [employer] Aissatou Trujillo [employer] Work Phone: [facility] 06-16-2022 10:46-0400 Body weight 112.26 kg ASSEMBLER TUBING-C Aissatou Trujillo ASSEMBLER TUBING Work Phone: [facility] 06-16-2022 10:46-0400 Diastolic blood pressure 83 mm[Hg] [employer]SEM[employer]ER [employer]-C Aissatou Trujillo ASSEMBLER TUBING Work Phone: [facility] 06-16-2022 10:46-0400 Heart rate 55 /min ASSEMBLER [employer]UBING-C Aissatou Hoganson ASSEMBLER TUBING Work Phone: [facility] 06-16-2022 10:46-0400 Respiratory rate 16 /min ASSEMBLER [employer]-C Aissatou Hoganson ASSEMBLER TUBING Work Phone: [facility] 06-16-2022 10:46-0400 SaO2% (BldA) [Mass fraction] 95 % [employer]SEM[employer]ER [employer]UBING-C Aissatou Hoganson ASSEMBLER TUBING Work Phone: [facility] 06-16-2022 10:46-0400 Systolic blood pressure 146 mm[Hg] [employer]-C Aissatou Hoganson ASSEMBLER TUBING Work Phone: [facility] 06-09-2022 10:52-0400 Body mass index (BMI) [Ratio] 33.7 kg/m2 [employer]SEM[employer]-C Aissatou Trujillo ASSEMBLER TUBING Work Phone: [facility] 06-09-2022 10:52-0400 Body temperature 97.1 [degF] [employer]-C Aissatou Trujillo ASSEMBLER TUBING Work Phone: [facility] 06-09-2022 10:52-0400 Body weight 113.05 kg ASSEMBLER TUBING-C Aissatou Trujillo ASSEMBLER TUBING Work Phone: [facility] 06-09-2022 10:52-0400 Diastolic blood pressure 71 mm[Hg] ASSEM[employer]ER T[employer]ING-C Aissatou Trujillo ASSEMBLER TUBING Work Phone: [facility] 06-09-2022 10:52-0400 Heart rate 58 /min ASSEMBLER TUBING-C Aissatou Trujillo ASSEMBLER TUBING Work Phone: [facility] 06-09-2022 10:52-0400 Respiratory rate 16 /min ASSEM[employer]ER T[employer]-C Aissatou Trujillo ASSEMBLER TUBING Work Phone: [facility] 06-09-2022 10:52-0400 SaO2% (BldA) [Mass fraction] 94 % ASSEMBLER TUBING-C Aissatou Trujillo ASSEMBLER TUBING Work Phone: [facility] 06-09-2022 10:52-0400 Systolic blood pressure 143 mm[Hg] ASSEM[employer]ER T[employer]ING-C Aissatou Trujillo ASSEMBLER TUBING Work Phone: [facility] 06-02-2022 11:17-0400 Body height 182.88 cm ASSEMBLER TUBING-C Aissatou Trujillo ASSEMBLER TUBING Work Phone: [facility] 06-02-2022 11:15-0400 Body mass index (BMI) [Ratio] 34.2 kg/m2 [employer]SEM[employer]-C Aissatou Trujillo ASSEMBLER TUBING Work Phone: [facility] 06-02-2022 11:15-0400 Body temperature 97.5 [degF] ASSEM[employer]ER T[employer]ING-C Aissatou Trujillo ASSEMBLER TUBING Work Phone: [facility] 06-02-2022 11:15-0400 Body weight 114.44 kg ASSEMBLER TUBING-C Aissatou Trujillo ASSEMBLER TUBING Work Phone: [facility] 06-02-2022 11:15-0400 Diastolic blood pressure 76 mm[Hg] ASSEM[employer]ER TUBING-C Aissatou Trujillo ASSEMBLER TUBING Work Phone: [facility] 06-02-2022 11:15-0400 Heart rate 57 /min ASSEMBLER TUBING-C Aissatou Turjillo ASSEMBLER TUBING Work Phone: [facility] 06-02-2022 11:15-0400 Respiratory rate 16 /min ASSEMBLER TUBING-C Aissatou Trujillo ASSEMBLER TUBING Work Phone: [facility] 06-02-2022 11:15-0400 SaO2% (BldA) [Mass fraction] 96 % ASSEMBLER TUBING-C Aissatou Trujillo ASSEMBLER TUBING Work Phone: [facility] 06-02-2022 11:15-0400 Systolic blood pressure 155 mm[Hg] ASSEM[employer]ER [employer]-C Aissatou Trujillo ASSEMBLER TUBING Work Phone: [facility] 05-19-2022 09:22-0400 Diastolic Blood Pressure Non-Invasive 78 1 LAURIE STACIE DO [facility] 05-19-2022 09:22-0400 Heart rate 65 /min LAURIE STACIE DO [facility] 05-19-2022 09:22-0400 Respiratory rate 15 /min LAURIE STACIE DO [facility] 05-19-2022 09:22-0400 Systolic Blood Pressure Non-Invasive 144 1 LAURIE STACIE DO [facility] 05-19-2022 09:15-0400 Diastolic Blood Pressure Non-Invasive 80 1 LAURIE STACIE DO [facility] 05-19-2022 09:15-0400 Heart rate 71 /min LAURIE STACIE DO [facility] 05-19-2022 09:15-0400 Respiratory rate 15 /min LAURIE STACIE DO [facility] 05-19-2022 09:15-0400 Systolic Blood Pressure Non-Invasive 127 1 LAURIE STACIE DO [facility] 05-19-2022 09:04-0400 Body temperature 96.8 [degF] LAURIE STACIE DO [facility] 05-19-2022 09:04-0400 Diastolic Blood Pressure Non-Invasive 74 1 LAURIE STACIE DO [facility] 05-19-2022 09:04-0400 Heart rate 67 /min LAURIE STACIE DO [facility] 05-19-2022 09:04-0400 Respiratory rate 15 /min LAURIE STACIE DO [facility] 05-19-2022 09:04-0400 Systolic Blood Pressure Non-Invasive 112 1 LAURIE STACIE DO [facility] 05-19-2022 08:55-0400 Respiratory Rate - Anes 14 br/min LAURIE STACIE DO [facility] 05-19-2022 08:50-0400 Respiratory Rate - Anes 17 br/min LAURIE STACIE DO [facility] 05-19-2022 08:43-0400 Body temperature 97.52 [degF] LAURIE STACIE DO [facility] 05-19-2022 08:43-0400 Heart rate 74 /min LAURIE STACIE DO [facility] 05-19-2022 08:38-0400 Body height 183.5 cm LAURIE STACIE DO [facility] 05-19-2022 08:38-0400 Body weight 115.9 kg LAURIE QUINONES DO [facility] 05-19-2022 08:38-0400 Body weight 34.42 kg/m2 LAURIE QUINONES DO [facility] 05-18-2022 08:27-0400 Body mass index (BMI) [Ratio] 34.2 kg/m2 [employer] Aissatou Trujillo ASSEMBLER TUBING Work Phone: [facility] 05-18-2022 08:27-0400 Body weight 114.3 kg ASSEMBLER TUBING-C Aissatou Trujillo ASSEMBLER TUBING Work Phone: [facility] 05-18-2022 08:27-0400 Diastolic blood pressure 79 mm[Hg] [employer]-C Aissatou Trujillo ASSEMBLER TUBING Work Phone: [facility] 05-18-2022 08:27-0400 Heart rate 52 /min ASSEM[employer]-C Aissatou Trujillo ASSEMBLER TUBING Work Phone: [facility] 05-18-2022 08:27-0400 Respiratory rate 18 /min ASSEM[employer]ER [employer]-C Aissatou Trujillo ASSEMBLER TUBING Work Phone: [facility] 05-18-2022 08:27-0400 SaO2% (BldA) [Mass fraction] 94 % ASSEMBLER TUBING-C Aissaotu Trujillo ASSEMBLER TUBING Work Phone: [facility] 05-18-2022 08:27-0400 Systolic blood pressure 140 mm[Hg] ASSEM[employer]ER [employer]-C Aissatou Trujillo ASSEMBLER TUBING Work Phone: [facility] 04-22-2022 13:23-0500 Body mass index (BMI) [Ratio] 34.1 kg/m2 [employer]-C Aissatou Trujillo ASSEMBLER TUBING Work Phone: [facility] 04-22-2022 13:23-0500 Body temperature 96.5 [degF] [employer]-C Aissatou Trujillo ASSEMBLER TUBING Work Phone: [facility] 04-22-2022 13:23-0500 Body weight 114.07 kg ASSEMBLER TUBING-C Aissatou Trujillo ASSEMBLER TUBING Work Phone: [facility] 04-22-2022 13:23-0500 Diastolic blood pressure 71 mm[Hg] ASSEM[employer]ER T[employer]-C Aissatou Trujillo ASSEMBLER TUBING Work Phone: [facility] 04-22-2022 13:23-0500 Heart rate 77 /min AS[employer]-C Aissatou Trujillo ASSEMBLER TUBING Work Phone: [facility] 04-22-2022 13:23-0500 Respiratory rate 16 /min ASSEM[employer]ER TUBING-C Aissatou Trujillo ASSEMBLER TUBING Work Phone: [facility] 04-22-2022 13:23-0500 SaO2% (BldA) [Mass fraction] 94 % ASSEM[employer]ER [employer]-C Aissatou Trujillo ASSEMBLER TUBING Work Phone: [facility] 04-22-2022 13:23-0500 Systolic blood pressure 147 mm[Hg] ASSEM[employer]ER [employer]-C Aissatou Trujillo ASSEMBLER TUBING Work Phone: [facility] 04-08-2022 09:38-0500 Body mass index (BMI) [Ratio] 34.3 kg/m2 [employer]-C Aissatou Trujillo ASSEMBLER TUBING Work Phone: [facility] 04-08-2022 09:38-0500 Body temperature 97.1 [degF] [employer]-C Aissatou Trujillo ASSEMBLER TUBING Work Phone: [facility] 04-08-2022 09:38-0500 Body weight 114.87 kg ASSEMBLER T[employer]ING-C Aissatou Trujillo ASSEMBLER TUBING Work Phone: [facility] 04-08-2022 09:38-0500 Diastolic blood pressure 67 mm[Hg] ASSEM[employer]ER [employer]-C Aissatou Trujillo ASSEMBLER TUBING Work Phone: [facility] 04-08-2022 09:38-0500 Heart rate 53 /min ASSEM[employer]ER [employer]-C Aissatou Trujillo ASSEMBLER TUBING Work Phone: [facility] 04-08-2022 09:38-0500 Respiratory rate 16 /min ASSEM[employer]ER [employer]-C Aissatou Trujillo ASSEMBLER TUBING Work Phone: [facility] 04-08-2022 09:38-0500 SaO2% (BldA) [Mass fraction] 96 % ASSEM[employer]ER [employer]-C Aissatou Trujillo ASSEMBLER TUBING Work Phone: [facility] 04-08-2022 09:38-0500 Systolic blood pressure 117 mm[Hg] ASSEM[employer]ER [employer]-C Aissatou Trujillo ASSEMBLER TUBING Work Phone: [facility] 12-20-2021 10:59-0400 Body temperature 98.5 [degF] AS[employer]ER [employer]-C Aissatou Trujillo ASSEMBLER [employer]UBING Work Phone: [facility] 12-20-2021 10:59-0400 Diastolic blood pressure 80 mm[Hg] ASSEM[employer]ER [employer]-C Aissatou Trujillo ASSEMBLER TUBING Work Phone: [facility] 12-20-2021 10:59-0400 Heart rate 62 /min ASSEM[employer]ER T[employer]-C Aissatou Trujillo ASSEMBLER TUBING Work Phone: [facility] 12-20-2021 10:59-0400 Respiratory rate 18 /min ASSEM[employer]ER [employer]-C Aissatou Trujillo ASSEMBLER TUBING Work Phone: [facility] 12-20-2021 10:59-0400 SaO2% (BldA) [Mass fraction] 96 % ASSEM[employer]-C Aissatou Trujillo ASSEMBLER TUBING Work Phone: [facility] 12-20-2021 10:59-0400 Systolic blood pressure 150 mm[Hg] ASSEM[employer]ER [employer]-C Aissatou Trujillo ASSEMBLER TUBING Work Phone: [facility] 12-19-2021 16:40-0400 Inhaled oxygen flow rate 4 L/min [employer]-C Aissatou Trujillo ASSEMBLER [employer]UBING Work Phone: [facility] 12-18-2021 16:13-0400 Body height 182.88 cm ASSEMBLER TUBING-C Aissatou Trujillo ASSEMBLER [employer]UBING Work Phone: [facility] 12-18-2021 16:13-0400 Body mass index (BMI) [Ratio] 35 kg/m2 [employer]-C Aissatou Trujillo ASSEMBLER [employer]ING Work Phone: [facility] 12-18-2021 16:13-0400 Body weight 117.16 kg ASSEMBLER TUBING-C Aissatou Trujillo ASSEMBLER TUBING Work Phone: [facility] 11-10-2021 09:28-0400 Body height 182.88 cm ASSEMBLER T[employer]ING-C Aissatou Trujillo ASSEMBLER TUBING Work Phone: [facility] Work Phone: 11-10-2021 09:28-0400 Body mass index (BMI) [Ratio] 33.3 kg/m2 [employer]C Aissatou Trujillo ASSEMBLER TUBING Work Phone: [facility] Work Phone: 11-10-2021 09:28-0400 Body weight 111.58 kg ASSEMBLER TUBING-C Aissatou Trujillo ASSEMBLER TUBING Work Phone: [facility] Work Phone: 11-10-2021 09:28-0400 Diastolic blood pressure 62 mm[Hg] [employer]-C Aissatou Trujillo ASSEMBLER [employer]UBING Work Phone: [facility] Work Phone: 11-10-2021 09:28-0400 Heart rate 55 /min AS[employer]ER [employer]-C Aissatou Trujillo ASSEMBLER TUBING Work Phone: [facility] Work Phone: 11-10-2021 09:28-0400 Respiratory rate 18 /min AS[employer]ER [employer]-C Aissatou Trujillo ASSEMBLER TUBING Work Phone: [facility] Work Phone: 11-10-2021 09:28-0400 Systolic blood pressure 122 mm[Hg] ASSEM[employer]ER [employer]-C Aissatou Trujillo ASSEMBLER [employer]UBING Work Phone: [facility] Work Phone: 09-28-2021 13:19-0400 Body height 182.88 cm ASSEMBLER TUBING-C Aissatou Trujillo ASSEMBLER TUBING Work Phone: [facility] Work Phone: 09-28-2021 13:19-0400 Body mass index (BMI) [Ratio] 32.9 kg/m2 [employer]-C Aissatou Trujillo ASSEMBLER [employer]UBING Work Phone: [facility] Work Phone: 09-28-2021 13:19-0400 Body weight 110.22 kg ASSEMBLER TUBING-C Aissatou Trujillo ASSEMBLER [employer]UBING Work Phone: [facility] Work Phone: 09-28-2021 13:19-0400 Diastolic blood pressure 60 mm[Hg] AS[employer]ER [employer]-C Aissatou Trujillo ASSEMBLER [employer]UBING Work Phone: [facility] Work Phone: 09-28-2021 13:19-0400 Heart rate 76 /min AS[employer]ER [employer]-C Aissatou Trujillo ASSEMBLER TUBING Work Phone: [facility] Work Phone: 09-28-2021 13:19-0400 Respiratory rate 16 /min AS[employer]ER [employer]-C Aissatou Trujillo ASSEMBLER [employer]UBING Work Phone: [facility] Work Phone: 09-28-2021 13:19-0400 Systolic blood pressure 132 mm[Hg] [employer]ER [employer]-C Aissatou Trujillo ASSEMBLER [employer]UBING Work Phone: [facility] Work Phone: Encounters Encounter Date Encounter Type Care Provider Facility Start: 10-15-2024 ambulatory Aissatou Trujillo Facility :[facility] Start: 09-24-2024 End: 09-24-2024 ambulatory Aissatou Trujillo [employer]-C Work Phone: -Pulmonary Services/Neurology Start: 09-24-2024 End: 09-24-2024 Patient encounter procedure Keshawn NOYOLA -Pulmonary Services/Neurology Work Phone: Start: 09-24-2024 End: 09-24-2024 ambulatory Aissatou Trujillo Facility:[facility] Start: 09-21-2024 End: 09-21-2024 ambulatory Aissatou Trujillo [employer]-C Work Phone: -Laboratory Start: 09-21-2024 End: 09-21-2024 Patient encounter procedure Keshawn NOYOLA -Laboratory Work Phone: Start: 09-21-2024 End: 09-21-2024 ambulatory Keshawn Saeed Facility:[facility] Start: 08-21-2024 Non-patient / Non-visit [facility] Rodrigues [facility] Work Phone: Start: 08-21-2024 End: 08-21-2024 ambulatory Aissatou Trujillo [employer]-C Work Phone: [facility] Work Phone: Start: 08-21-2024 End: 08-21-2024 Patient encounter procedure Keshawn NOYOLA -Pulmonary Services/Neurology Work Phone: Start: 08-21-2024 End: 08-21-2024 ambulatory Keshawn Saeed Facility:[facility] Start: 08-01-2024 End: 08-01-2024 Patient encounter procedure Keshawn NOYOLA [facility] Work Phone: Start: 08-01-2024 End: 08-01-2024 ambulatory Aissatou Trujillo [employer]SEM[employer]ER [employer]-C Work Phone: [facility] Work Phone: Start: 07-10-2024 End: 07-10-[address] Yoav Olivares DO -[facility] Work Phone: Start: 07-10-2024 End: 07-10-2024 ambulatory Yoav Olivares Facility:[facility] Start: 07-10-2024 End: 07-10-2024 Patient encounter procedure Keshawn NOYOLA [facility] Work Phone: Start: 07-10-2024 End: 07-10-2024 ambulatory Aissatou Trujillo Facility:[facility] Start: 07-06-2024 End: 07-06-[address] Yoav Olivares DO -Laboratory Work Phone: Start: 07-06-2024 End: 07-06-2024 ambulatory Yoav Olivares Facility:[facility] Start: 06-25-2024 End: 06-25-2024 Patient encounter procedure Marsha NOYOLA [facility] Work Phone: Start: 06-25-2024 End: 06-25-2024 ambulatory Aissatou Trujillo Facility:[facility] Start: 06-21-2024 End: 06-21-2024 Emergency department patient visit Aissatou Trujillo [employer]SEM[employer]ER [employer]-C Work Phone: -Emergency Department Work Phone: Start: 06-13-2024 End: 06-17-2024 ambulatory AISSATOU TRUJILLO KNURLING MACHINE OPERATOR-STRAPPING MACHINE OPERATOR Facility:[facility] Start: 06-06-2024 Non-patient / Non-visit [facility] Work Phone: Start: 06-06-2024 End: 06-06-2024 ambulatory Aissatou Darin [employer]SEM[employer]ER [employer]-C Work Phone: [facility] Work Phone: Start: 06-06-2024 End: 06-06-2024 Patient encounter procedure Marsha NOYOLA -Pulmonary Services/Neurology Work Phone: Start: 06-06-2024 End: 06-06-2024 ambulatory Aissatouesperanza Trujillo Facility:[facility] Start: 05-25-2024 End: 05-25-2024 Patient encounter procedure Marsha NOYOLA -[facility] Work Phone: Start: 05-25-2024 End: 05-25-2024 ambulatory Aissatouesperanza Trujillo Facility:[facility] Start: 04-17-2024 End: 04-17-2024 Patient encounter procedure Ling Beck -Laboratory Work Phone: Start: 04-17-2024 End: 04-17-2024 ambulatory Ling Beck Facility:[facility] Start: 01-09-2024 End: 01-09-2024 ambulatory Yoav Marshall Facility:[facility] Start: 01-06-2024 End: 01-06-2024 ambulatory Yoav Masrhall Facility:[facility] Start: 11-29-2023 End: 11-29-2023 Office outpatient new 45 minutes Maurice Fulton MD Work Phone: [facility] Cardiology - [place]arci Comment on above: Paroxysmal atrial fi brillation (HCC) Start: 11-29-2023 End: 11-29-2023 ambulatory MAURICE FULTON [facility] Start: 11-28-2023 End: 11-28-2023 ambulatory AISSATOU TRUJILLO KNURLING MACHINE OPERATOR-STRAPPING MACHINE OPERATOR Facility:[facility] Start: 11-28-2023 End: 11-28-2023 Patient encounter procedure AISSATOU TRUJILLO KNURLING MACHINE OPERATOR-STRAPPING MACHINE OPERATOR [facility] Start: 11-25-2023 End: 11-25-2023 ambulatory Aissatou Trujillo Facility:[facility] Start: 10-24-2023 End: 10-24-2023 ambulatory Aissatou Trujillo Facility:[facility] Start: 10-17-2023 End: 10-17-2023 ambulatory Aneudy Santiago Facility:[facility] Start: 07-11-2023 End: 07-11-2023 Patient encounter procedure [employer]ER [employer]-C Aissatou Trujillo ASSEMBLER TUBING Work Phone: [facility] Work Phone: Start: 07-08-2023 End: 07-08-2023 ambulatory [employer]SEM[employer]ER [employer]-C Aissatou Trujillo ASSEMBLER TUBING Work Phone: [facility] Work Phone: Start: 07-08-2023 End: 07-08-2023 Patient encounter procedure ASSEMBLER TUBING-C Aissatou Trujillo ASSEMBLER TUBING Work Phone: [facility]-Laboratory Work Phone: Start: 04-27-2023 Non-patient / Non-visit [employer]C Jimena Trujillo ASSEMBLER TUBING Work Phone: [facility] Work Phone: Start: 04-18-2023 End: 04-18-2023 ambulatory [employer]SEM[employer]ER [employer]-C Aissatou Trujillo ASSEMBLER TUBING Work Phone: [facility] Work Phone: Start: 04-18-2023 End: 04-18-2023 Patient encounter procedure ASSEMBLER TUBING-C Aissatou Trujillo ASSEMBLER TUBING Work Phone: [facility]-Pulmonary Services/Neurology Work Phone: Start: 04-11-2023 End: 04-11-2023 ambulatory ASSEM[employer]ER [employer]-C Aissatou Trujillo ASSEMBLER TUBING Work Phone: [facility] Work Phone: Start: 04-11-2023 End: 04-11-2023 Patient encounter procedure ASSEMBLER TUBING-C Aissatou Trujillo ASSEMBLER TUBING Work Phone: [facility]-Laboratory Work Phone: Start: 03-03-2023 End: 03-03-2023 Emergency department patient visit ASSEMBLER TUBING-C Aissatou Trujillo ASSEMBLER TUBING Work Phone: [facility]-Emergency Department Work Phone: Start: 02-24-2023 End: 02-24-2023 Patient encounter procedure ASSEMBLER TUBING-C Aissatou Trujillo ASSEMBLER TUBING Work Phone: [facility] Work Phone: Start: 02-07-2023 End: 02-08-2023 ambulatory AISSATOU TRUJILLO KNURLING MACHINE OPERATOR-STRAPPING MACHINE OPERATOR Facility:B Start: 01-18-2023 End: 01-18-2023 Admission to same day surgery center ASSEMBLER TUBING-Gelacio Trujillo ASSEMBLER TUBING Work Phone: [facility]-Surgical Day Care Start: 01-12-2023 End: 01-12-2023 Non-patient / Non-visit ASSEMBLER TUBING-Gelacio Trujillo ASSEMBLER TUBING Work Phone: [facility] Work Phone: Start: 01-05-2023 End: 01-05-2023 ambulatory ASSEM[employer]ER [employer]-C Aissatou Trujillo ASSEMBLER TUBING Work Phone: [facility] Work Phone: Start: 01-05-2023 End: 01-05-2023 Patient encounter procedure ASSEMBLER TUBING-C Aissatou Trujillo ASSEMBLER TUBING Work Phone: [facility]-Laboratory Work Phone: Start: 11-30-2022 Non-patient / Non-visit [employer]-C Jimena Trujillo ASSEMBLER TUBING Work Phone: [facility] Work Phone: Start: 11-22-2022 End: 11-23-2022 ambulatory AISSATOU TRUJILLO KNURLING MACHINE OPERATOR-STRAPPING MACHINE OPERATOR Facility:[facility] Start: 11-22-2022 End: 11-22-2022 Patient encounter procedure IASSATOU TRUJILLO KNURLING MACHINE OPERATOR-STRAPPING MACHINE OPERATOR [facility] Start: 11-18-2022 End: 11-18-2022 Patient encounter procedure ASSEMBLER TUBING-C Aissatou Trujillo ASSEMBLER TUBING Work Phone: [facility] Work Phone: Start: 09-30-2022 End: 10-19-2022 ambulatory AISSATOU TRUJILLO KNURLING MACHINE OPERATOR-STRAPPING MACHINE OPERATOR Facility:[facility] Start: 09-30-2022 End: 10-19-2022 Physical therapy management AISSATOU TRUJILLO KNURLING MACHINE OPERATOR-STRAPPING MACHINE OPERATOR [facility] Start: 09-29-2022 End: 09-29-2022 ambulatory ASSEMBLER TUBING-C Aissatou Trujillo ASSEMBLER TUBING Work Phone: [facility] Work Phone: Start: 09-29-2022 End: 09-29-2022 Patient encounter procedure ASSEMBLER TUBING-C Aissatou Trujillo ASSEMBLER TUBING Work Phone: [facility]-Laboratory Work Phone: Start: 09-22-2022 End: 09-23-2022 ambulatory AISSATOU TRUJILLO KNURLING MACHINE OPERATOR-STRAPPING MACHINE OPERATOR Facility:[facility] Start: 09-22-2022 End: 09-22-2022 Patient encounter procedure AISSATOU TRUJILLO KNURLING MACHINE OPERATOR-STRAPPING MACHINE OPERATOR [facility] Start: 09-03-2022 Non-patient / Non-visit [employer]-C Jimena Trujillo ASSEMBLER TUBING Work Phone: [facility] Work Phone: Start: 09-01-2022 End: 09-01-2022 ambulatory ASSEMBLER TUBING-C Aissatou Trujillo ASSEMBLER TUBING Work Phone: [facility] Work Phone: Start: 09-01-2022 End: 09-01-2022 Patient encounter procedure ASSEMBLER TUBING-C Aissatou Trujillo ASSEMBLER TUBING Work Phone: [facility]-Pulmonary Services/Neurology Work Phone: Start: 08-27-2022 End: 08-27-2022 ambulatory ASSEMBLER TUBING-C Aissatou Trujillo ASSEMBLER TUBING Work Phone: [facility] Work Phone: Start: 08-27-2022 End: 08-27-2022 Patient encounter procedure ASSEMBLER TUBING-C Aissatou Trujillo ASSEMBLER TUBING Work Phone: [facility]-Laboratory Work Phone: Start: 08-26-2022 End: 08-26-2022 Patient encounter procedure ASSEMBLER TUBING-C Aissatou Trujillo ASSEMBLER TUBING Work Phone: [facility] Work Phone: Start: 08-18-2022 End: 08-18-2022 ambulatory ASSEMBLER TUBING-C Aissatou Trujillo ASSEMBLER TUBING Work Phone: [facility] Work Phone: Start: 08-18-2022 End: 08-18-2022 Patient encounter procedure ASSEMBLER TUBING-C Aissatou Trujillo ASSEMBLER TUBING Work Phone: [facility] Start: 07-26-2022 End: 07-26-2022 ambulatory ASSEMBLER TUBING-C Aissatou Trujillo ASSEMBLER TUBING Work Phone: [facility] Work Phone: Start: 07-26-2022 End: 07-26-2022 Patient encounter procedure ASSEMBLER TUBING-C Aissatou Trujillo ASSEMBLER TUBING Work Phone: [facility]-Laboratory Start: 07-15-2022 Registered Recurring ASSEMBLER TUBING-C Yoel Trujillo ASSEMBLER TUBING [facility] Start: 07-14-2022 End: 07-14-2022 Patient encounter procedure ASSEMBLER TUBING-C Aissatou Trujillo ASSEMBLER TUBING Work Phone: [facility] Start: 07-07-2022 End: 07-07-2022 Patient encounter procedure ASSEMBLER TUBING-C Aissatou Trujillo ASSEMBLER TUBING Work Phone: [facility] Start: 06-30-2022 End: 06-30-2022 Patient encounter procedure ASSEMBLER TUBING-C Aissatou Trujillo ASSEMBLER TUBING Work Phone: [facility] Start: 06-23-2022 End: 06-23-2022 Patient encounter procedure ASSEMBLER TUBING-C Aissatou Trujillo ASSEMBLER TUBING Work Phone: [facility] Start: 06-16-2022 End: 06-16-2022 Patient encounter procedure ASSEMBLER TUBING-C Aissatou Trujillo ASSEMBLER TUBING Work Phone: [facility] Start: 06-09-2022 End: 06-09-2022 Patient encounter procedure ASSEMBLER TUBING-C Aissatou Trujillo ASSEMBLER TUBING Work Phone: [facility] Start: 06-04-2022 Registered Recurring ASSEMBLER TUBING-C Yoel Trujillo ASSEMBLER TUBING [facility] Start: 06-02-2022 End: 06-02-2022 Patient encounter procedure ASSEMBLER TUBING-C Aissatou Trujillo ASSEMBLER TUBING Work Phone: [facility] Start: 06-01-2022 End: 06-01-2022 ambulatory ASSEMBLER TUBING-C Aissatou Trujillo ASSEMBLER TUBING Work Phone: [facility] Work Phone: Start: 06-01-2022 End: 06-01-2022 Patient encounter procedure ASSEMBLER TUBING-C Aissatou Trujillo ASSEMBLER TUBING Work Phone: [facility]-Laboratory Start: 05-28-2022 Non-patient / Non-visit ASSEMBLER TUBING-C Jimena Trujillo ASSEMBLER TUBING Work Phone: [facility] Start: 05-27-2022 Non-patient / Non-visit ASSEMBLER TUBING-C Jimena Trujillo ASSEMBLER TUBING Work Phone: [facility] Start: 05-20-2022 Non-patient / Non-visit ASSEMBLER TUBING-C Jimena Trujillo ASSEMBLER TUBING Work Phone: [facility] Start: 05-19-2022 End: 05-20-2022 ambulatory AISSATOU TRUJILLO KNURLING MACHINE OPERATOR-STRAPPING MACHINE OPERATOR Facility:B Start: 05-19-2022 End: 05-19-2022 Minor Procedure LAURIE QUINONES DO [facility] Start: 05-18-2022 End: 05-18-2022 Patient encounter procedure ASSEMBLER TUBING-C Aissatou Trujillo ASSEMBLER TUBING Work Phone: [facility] Start: 04-22-2022 End: 04-22-2022 Patient encounter procedure ASSEMBLER TUBING-C Aissatou Trujillo ASSEMBLER TUBING Work Phone: [facility] Start: 04-08-2022 End: 04-08-2022 Patient encounter procedure ASSEMBLER TUBING-C Aissatou Trujillo ASSEMBLER TUBING Work Phone: [facility] Start: 03-24-2022 End: 03-24-2022 ambulatory [facility] Work Phone: Start: 03-24-2022 End: 03-24-2022 Patient encounter procedure [facility] Start: 12-18-2021 End: 12-20-2021 Evaluation and management of inpatient ASSEMBLER TUBING-Gelacio Trujillo ASSEMBLER TUBING Work Phone: [facility]-Medical Surgical 3 Start: 12-18-2021 End: 12-20-2021 observation encounter ASSEMBLER TUBING-C Aissatou Trujillo ASSEMBLER TUBING Work Phone: [facility] Work Phone: Start: 11-10-2021 End: 11-10-2021 Patient encounter procedure ASSEMBLER TUBING-C Aissatou Trujillo ASSEMBLER TUBING Work Phone: [facility] Start: 10-15-2021 Non-patient / Non-visit ASSEMBLER TUBING-C Jimena Trujillo ASSEMBLER TUBING Work Phone: [facility] Start: 10-15-2021 End: 10-15-2021 Patient encounter procedure ASSEMBLER TUBING-C Aissatou Trujillo ASSEMBLER TUBING Work Phone: [facility] Start: 09-30-2021 End: 09-30-2021 Patient encounter procedure AISSATOU TRUJILLO KNURLING MACHINE OPERATOR-STRAPPING MACHINE OPERATOR [facility] Start: 09-29-2021 Non-patient / Non-visit ASSEMBLER TUBING-C Jimena Trujillo ASSEMBLER TUBING Work Phone: [facility] Start: 09-29-2021 End: 09-29-2021 Patient encounter procedure ASSEMBLER TUBING-C Aissatou Trujillo ASSEMBLER TUBING Work Phone: [facility] r Services Start: 09-29-2021 Non-patient / Non-visit ASSEMBLER TUBING-C Jimena Trujillo ASSEMBLER TUBING Work Phone: [facility] Start: 09-28-2021 Patient encounter status ASSEMBLER TUBING-C Aissatou Trujillo ASSEMBLER TUBING Work Phone: [facility] Start: 09-28-2021 End: 09-28-2021 Admission to same day surgery center ASSEMBLER TUBING-C Aissatou Trujillo ASSEMBLER TUBING Work Phone: [facility] Start: 09-28-2021 End: 09-28-2021 Patient encounter procedure ASSEMBLER TUBING-C Aissatou Trujillo ASSEMBLER TUBING Work Phone: [facility] Start: 09-24-2021 EKG myocardial ischemia ASSEMBLER TUBING-C Jimena Trujillo ASSEMBLER TUBING Work Phone: [facility] Start: 09-23-2021 End: 09-23-2021 ambulatory ASSEMBLER TUBING-C Aissatou Hogancharmaine ASSEMBLER TUBING Work Phone: [facility] Work Phone: Start: 09-23-2021 End: 09-23-2021 Patient encounter procedure ASSEMBLER TUBING-C Aissatou Trujillo ASSEMBLER TUBING Work Phone: [facility]-Pre-Admission Testing Start: 09-23-2021 End: 09-29-2021 Non-patient / Non-visit ASSEMBLER TUBING-C Aissatou Lorcharmaine ASSEMBLER TUBING Work Phone: [facility] Start: 09-02-2021 End: 09-02-2021 Patient encounter procedure [facility]-Nuclear Medicine, [facility] Start: 08-24-2021 End: 08-24-2021 Patient encounter procedure AISSATOU LORCHARMAINE KNURLING MACHINE OPERATOR-STRAPPING MACHINE OPERATOR [facility] Start: 08-13-2021 End: 08-13-2021 Patient encounter procedure [facility]Laboratory, Specimen Start: 08-05-2021 End: 08-05-2021 Patient encounter procedure [facility]-MRI - [facility] Start: 07-21-2021 End: 07-21-2021 Patient encounter procedure [facility] Procedures Date Procedure Procedure Detail Performing Clinician Start: 07-10-2024 Evaluation of diagno [facility] study results Aissatou Trujillo ASSEMBLER TUBING-C Work Phone: Start: 07-06-2024 Assay of prostate sp ecific antigen total Aissatou Trujillo ASSEMBLER TUBING-C Work Phone: Comment on above: This test [...] of diagno stic study results Aissatou Trujillo ASSEMBLER TUBING-C Work Phone: Start: 06-21-2024 Estimated creatinine clearance Aissatou Trujillo ASSEMBLER TUBING-C Work Phone: Start: 04-17-2024 Assay of prostate sp ecific antigen total Aissatou Trujillo ASSEMBLER TUBING-C Work Phone: Comment on above: This test was perfor med using the TPSA assay method for [facility] chemistry system. Values obtained with differentassay methods cannot be used interchangably.When changing PSA assays in the course of monitoring apatient, additional sequential testing should be carriedout to confirm baseline values. Start: 11-29-2023 Ecg routine ecg w/le ast 12 lds trcg only w/o i&r Maurice Fulton MD Work Phone: Start: 03-03-2023 CT of head without contrast ASSEMBLER TUBING-C Aissatou Trujillo ASSEMBLER TUBING Work Phone: Start: 08-18-2022 CT of soft tissues o f neck with contrast ASSEMBLER TUBING-C Aissatou Trujillo ASSEMBLER TUBING Work Phone: Start: 05-19-2022 Colonoscopy LAURIE STACIE DO Start: 04-20-2022 Positron emission to mography with computed tomography ASSEMBLER TUBING-C Aissatou Trujillo ASSEMBLER TUBING Work Phone: Start: 12-18-2021 Lap Robotic Prostate ctomy (Not Applicable) ASSEMBLER TUBING-C Aissatou Darin ASSEMBLER TUBING Work Phone: Start: 09-02-2021 Radionuclide whole b [facility] bone study Start: 08-05-2021 MRI of pelvis with contrast Cardiac catheterization YOEL TRUJILLO KNURLING MACHINE OPERATOR-STRAPPING MACHINE OPERATOR Catheter procedure AISSATOU OROPEZA KNURLING MACHINE OPERATOR-STRAPPING MACHINE OPERATOR Hand structure (body structure) AISSATOU TRUJILLO KNURLING MACHINE OPERATOR-STRAPPING MACHINE OPERATOR Comment on above: left hand I&D Hernia of abdominal cavity (disorder) AISSATOU TRUJILLO KNURLING MACHINE OPERATOR-STRAPPING MACHINE OPERATOR Comment on above: umbilical Tonsillectomy AISSATOU TRUJILLO KNURLING MACHINE OPERATOR-STRAPPING MACHINE OPERATOR Vasectomy AISSATOU TRUJILLO KNURLING MACHINE OPERATOR-STRAPPING MACHINE OPERATOR Plan of Treatment Date Care Activity Detail Author Start: 12-24-2026 DTaP/Tdap/Td Vaccines (2 - Td or Tdap) DTaP/Tdap/Td Vaccines (2 - Td or Tdap) [facility] Start: 08-01-2024 Evaluation of diagnostic study results [facility] Start: 06-21-2024 [facility] Start: 06-21-2024 [facility] Start: 11-06-2023 COVID-19 Vaccine () COVID-19 Vaccine () [facility] Start: 11-06-2023 Influenza vaccination Influenza Vaccine (#1) [facility] Start: 03-07-2023 Medicare Advantage Annual Wellness Visit Medicare Advantage Annual Wellness Visit [facility] Start: 03-03-2023 [facility] Start: 01-18-2023 Anes integ musc & nrv head neck&posterior trunk ANESTH HEAD/NECK/PTRUNK [facility] Start: 01-18-2023 Excision tumor soft tiss face/scalp subq 2 cm/> EXC FACE LES SBQ 2 CM/> [facility] Start: 01-18-2023 Patient discharge [facility] Start: 07-07-2022 Patient referral [facility] Work Phone: Start: 12-20-2021 Patient discharge [facility] Start: 12-19-2021 Following clinical pathway protocol [facility] Start: 12-18-2021 Application of intermittent pneumatic compression device [facility] Start: 12-18-2021 Following clinical pathway protocol [facility] Start: 12-18-2021 Anes xtrprtl lwr abd w/urinary tract rad prstect ANESTH REMOVAL OF PROSTATE [facility] Start: 12-18-2021 Laps prostect retropubic rad w/nrv sparing robot LAPS SURG [id number] RPBIC RAD [facility] Start: 12-18-2021 Admission procedure [facility] Start: 12-18-2021 Deep breathing and coughing exercises [facility] Start: 12-18-2021 Measuring intake and output [facility] Start: 12-18-2021 Patient education [facility] Start: 12-18-2021 Provision of activity privileges [facility] Start: 12-18-2021 Taking patient vital signs [facility] Start: 12-18-2021 Vital signs measurements [facility] Start: 12-18-2021 [facility] Start: 2009 RSV Immunization aged 60 or older (1 - 1-dose 60+ series) RSV Immunization aged 60 or older (1 - 1-dose 60+ series) [facility] Start: 1967 Diabetes mellitus screening Diabetes Screening [facility] Start: 1967 Hepatitis C screening Hepatitis C Screening [facility] Start: 1961 Depression Screening Depression Screening [facility] Start: 1949 Lipid panel Lipid Panel [facility] Start: 1949 Screening for malignant neoplasm of colon [facility] 24 Hour ECG [facility] Work Phone: Ambulatory ECG [facility] ECG 12 lead ECG 12 lead CV E CG Routine Paroxysmal atrial fibrillation (HCC) 11/29/2023 8:46 AM EDT [facility] Work Phone: Hepatic function panel [facility] Measurement of respiratory function [facility] Patient Education [facility] Work Phone: Patient referral [facility] Work Phone: Positron emission tomography with computed tomography [facility] Prostate specific antigen measurement [facility] Prostate specific antigen measurement [facility] Radionuclide imaging of perfusion of myocardium under exercise stress [facility] Work Phone: Thyroid stimulating hormone measurement [facility] Immunizations Immunization Date Immunization Notes Care Provider Fa [facility] 05-26-2023 influenza virus vacc ine, unspecified formulation Maurice Fulton MD Work Phone: [facility] 01-22-2022 influenza virus vacc ine, unspecified formulation AISSATOU TRUJILLO KNURLING MACHINE OPERATOR-STRAPPING MACHINE OPERATOR [facility] 12-16-2020 influenza virus vacc ine, unspecified formulation AISSATOU TRUJILLO KNURLING MACHINE OPERATOR-STRAPPING MACHINE OPERATOR [facility] 06-26-2020 SARS-CoV-2 (COVID-19 ) mRNA-1273 vaccine AISSATOU TRUJILLO KNURLING MACHINE OPERATOR-STRAPPING MACHINE OPERATOR [facility] Comment on above: Result Comment: 2021: [id number] 05-29-2020 SARS-CoV-2 (COVID-19 ) mRNA-1273 vaccine AISSATOU TRUJILLO KNURLING MACHINE OPERATOR-STRAPPING MACHINE OPERATOR [facility] Comment on above: Result Comment: 2021: [id number] 11-21-2019 influenza virus vacc ine, unspecified formulation AISSATOU TRUJILLO KNURLING MACHINE OPERATOR-STRAPPING MACHINE OPERATOR [facility] 11-21-2019 pneumococcal polysaccharide vaccine, 23 valent AISSATOU TRUJILLO KNURLING MACHINE OPERATOR-STRAPPING MACHINE OPERATOR [facility] 12-18-2018 influenza virus vacc ine, unspecified formulation AISSATOU TRUJILLO KNURLING MACHINE OPERATOR-STRAPPING MACHINE OPERATOR [facility] 09-11-2018 zoster vaccine recombinant AISSATOU TRUJILLO KNURLING MACHINE OPERATOR-STRAPPING MACHINE OPERATOR [facility] 07-10-2018 zoster vaccine recombinant AISSATOU TRUJILLO KNURLING MACHINE OPERATOR-STRAPPING MACHINE OPERATOR [facility] 12-21-2017 influenza virus vacc ine, unspecified formulation AISSATOU TRUJILLO KNURLING MACHINE OPERATOR-STRAPPING MACHINE OPERATOR [facility] 12-24-2016 tetanus toxoid, redu adriano diphtheria toxoid, and acellular pertussis vaccine, adsorbed AISSATOU HOGANCHARMAINE KNURLING MACHINE OPERATOR-STRAPPING MACHINE OPERATOR [facility] 10-25-2016 pneumococcal conjuga te vaccine, 13 valent AISSATOU TRUJILLO KNURLING MACHINE OPERATOR-STRAPPING MACHINE OPERATOR [facility] 12-10-2015 influenza virus vacc ine, unspecified formulation AISSATOU TRUJILLO KNURLING MACHINE OPERATOR-STRAPPING MACHINE OPERATOR [facility] 01-17-2015 influenza virus vacc ine, unspecified formulation AISSATOU TRUJILLO KNURLING MACHINE OPERATOR-STRAPPING MACHINE OPERATOR [facility] 01-07-2014 influenza virus vacc ine, unspecified formulation AISSATOU TRUJILLO KNURLING MACHINE OPERATOR-STRAPPING MACHINE OPERATOR [facility] 12-20-2012 influenza virus vacc ine, unspecified formulation AISSATOU TRUJILLO KNURLING MACHINE OPERATOR-STRAPPING MACHINE OPERATOR [facility] Payers Date Payer Category Payer Unknown [id number] 2023 Medicare [id number] 2023 Self-pay [id number] 2023 Medicare [employer] MED[employer] RE [employer] SECURE [id number] 2023-Present [address] [place] [id number] Medicare HMO [id number] 2022 Medicare [id number] 2014 Medicare [id number] 1949 Unknown [id number] [id number]7 1949 Unknown [id number] 2.16.840.1.240729.3.579.2.627 1949 Unknown [id number] 2.16.840.1.309240.3.579.2.62 1949 Unknown [id number] 2.16.840.1.338266.3.579.2.62 1949 Unknown [id number] 2.16.840.1.472800.3.579.2.62 1949 Unknown [id number] 2.16.840.1.495982.3.579.2.62 1949 Unknown [id number] 2.16.840.1.586275.3.579.2.627 Unknown [id number] Unknown [id number] 2.16.840.1.035522.3.579.2.462 Unknown [id number] 2.16.840.1.424533.3.579.2.462 Unknown [id number] 2.16.840.1.522655.3.579.2.462 Unknown [id number] 2.16.840.1.887497.3.579.2.462 Unknown [id number] 2.16.840.1.332932.3.579.2.462 Unknown [id number] 2.16.840.1.399571.3.579.2.462 Unknown [id number] 2.16.840.1.429104.3.579.2.462 Unknown [id number] 2.16.840.1.922683.3.579.2.462 Unknown [id number] 2.16.840.1.436442.3.579.2.462 Unknown [id number] 2.16.840.1.931531.3.579.2.462 Unknown [id number] 2.16.840.1.060559.3.579.2.462 Unknown [id number] 2.16.840.1.293737.3.579.2.462 Unknown [id number] 2.16.840.1.534931.3.579.2.462 Unknown [id number] 2.16.840.1.982962.3.579.2.462 Unknown [id number] 2.16.840.1.669202.3.579.2.462 Unknown [id number] 2.16.840.1.096598.3.579.2.462 Unknown [id number] 2.16.840.1.973715.3.579.2.462 Unknown [id number] 2.16.840.1.584626.3.579.2.462 Unknown [id number] 2.16.840.1.259382.3.579.2.462 Unknown [id number] 2.16.840.1.451373.3.579.2.462 Social History Date Type Detail Facility Start: 06-23-2015 End: 03-03-2023 Tobacco smoking status [facility] Unknown if ever smoked [facility] Start: 1950 Sex Assigned At Male [facility] Work Phone: Start: 06-05-2020 End: 06-21-2024 Tobacco smoking status Never smoked tobacco (finding) [facility] Start: 10-31-2023 Tobacco use and exposure Smokeless tobacco non-user [facility] Start: 10-31-2023 Alcoholic beverage intake Not Asked [facility] Start: 10-31-2023 History of Social function [facility] Start: 10-31-2023 Tobacco use panel [facility] Start: 10-31-2023 Alcohol Comment rarely [facility] Start: 1950 Sex assigned at Not on file [facility] Start: 06-09-2024 End: 06-21-2024 Sex Male (finding) [facility] Medical Equipment Procedure Code Equipment Code Equipment Origin al Text Equipment Identifier Dates CLIP,HEMTERRYJOSE VIVEK FDA Start: 12-18-2021 [facility] FDA Start: 12-18-2021 CLIP,[facility] V[facility] FDA Start: 12-18-2021 CLIP,[facility] FDA Start: 12-18-2021 Ligation clip, synthetic polymer, non-bioabsorbable ([id number] FDA Start: 12-18-2021 CLIP,HEMTERRYJOSE ROXIE FDA Start: 12-18-2021 CLIP,[facility] FDA Start: 12-18-2021 CLIP,[facility] VIVEK FDA Start: 12-18-2021 [facility] FDA Start: 12-18-2021 CLIP,[facility] FDA Start: 12-18-2021 CLIP,HEMTERRYJOSE HAM VIVEK FDA Start: 12-18-2021 CLIP,HEMTERRYJOSE VIVEK FDA Start: 12-18-2021 CLIP,HEMJHON VIVEK FDA Start: 12-18-2021 CLIP,HEMTERRYJOSE VIVEK FDA Start: 12-18-2021 CLIP,HEMTERRYJOSE HAM VIVEK FDA Start: 12-18-2021 CLIP,[facility] FDA Start: 12-18-2021 CLIP,[facility] [employer] FDA Start: 12-18-2021 CLIP,HEMTERRYJOSE [employer] FDA Start: 12-18-2021 CLIP,HEMTERRYJOSE DOYLE FDA Start: 12-18-2021 CLIP,[facility] VIVEK FDA Start: 12-18-2021 CLIP,HEMTERRYJOSE [employer] FDA Start: 12-18-2021 CLIP,[facility] [employer] FDA Start: 12-18-2021 CLIP,[facility] [employer] FDA Start: 12-18-2021 CLIP,HEMOLOCK LG WECK FDA [...] 12-18-2021 CLIP,HEMOLOCK LG WECK FDA Start: 12-18-2021 Goals Date Patient Goal [...] no increased lateral hip pain on the [facility] 05-19-2022 Functional Status Maintained [facility] 12-20-2021 Functional status Ambulates;Up ad rip [facility] Work Phone: Mental Status Date Assessment Result Facility 06-21-2024 Cognitive function Voice/Name [facility] Work Phone: 03-03-2023 Cognitive function Level Of Cons ciousness Awake;Alert;Appropriate;Follow s Commands [facility] Work Phone: 01-18-2023 Cognitive function Voice/Name [facility] Work Phone: 05-19-2022 Mental Status Oriented x 4 [facility] 12-19-2021 Cognitive function Voice/Name [facility] Work Phone: Clinical Notes 09-30-2021 to 07-10-2024 Note Date & Type Note Facility 07-10-2024 Evaluation note Diagnosis Onset Date Resolution Essential hypertension chronic 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 chronic July 10, 2024 12:51pm Paroxysmal atrial fibrillation chronic July 10, 2024 12:51pm Biochemically recurrent castration-sensitive adenocarcinoma of prostate acute July 10, 2024 1: 59pm Dyspnea on exertion acute July 062024 8:39am On amiodarone therapy acute August 01, 2024 8:39am Essential hypertension chronic Ma y 2024 8:39am detention current use of 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 chronic August 01, 2024 8:39am Paroxysmal atrial fibrillation chronic August 01, 2024 8:39am [facility] Work Phone: 1(851) 968-565404-17-2025 Hospital Discharge instructions Additional Instructions Discontinue your metoprolol Decrease your amiodarone dose to 200 mg daily Follow-up in the office with cardiology within the next 3 to 5 days.[facility] Work Phone: 1(222) 573-124304-12-2025 Note. MICRO - Microbiology PROCEDURE: Stool Culture [^1 [...] Locations *1: This test was performed at: [address], [address] [place], [place] [address]-10-2025 Note. MICRO - Microbiology PROCEDURE: Shiga Toxins 1 and 2 [[id number]: [id number] ^1 *1] SOURCE: Stool BODY SITE: COLLECTED [...] Locations *1: This test was performed at: [address], [address] [place], [place] [address]-21-2025 Evaluation note* Diagnosis Onset Date Resolution Status Admit Date ERNESTO (obstructive sleep apnea) acute May 25, 2024 8:44am Asymptomatic PVCs chronic May 062024 8:44am Essential hypertension chronic [facility] 2024 8:44am Nonrheumatic mitral (valve) insufficiency chronic May 25, 2024 8:44am Paroxysmal atrial fibrillation chron ic May 25, 2024 8:44am [facility] Work Phone: 1(883) 333-668003-21-2025 Evaluation note* Diagnosis Onset Date Resolution Status Admit Date ERNESTO (obstructive sleep apnea) acute May 25, 2024 8:44am Asymptomatic PVCs chronic May 062024 8:44am Essential hypertension chronic [facility] 2024 8:44am Nonrheumatic mitral (valve) insufficiency chronic May 25, 2024 8:44am Paroxysmal atrial fibrillation chron ic May 25, 2024 8:44am Essential hypertension chronic Ma y 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 chronic July 10, 2024 12 :51pm Paroxysmal atrial fibrillation chron ic July 10, 2024 12:51pm Biochemically recurrent castration-sensitive adenocarcinoma of prostate acute July 102024 1:59pm Essential hypertension chronic Ma y 2024 8:39am detention current use of 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 chronic August 01, 2024 8 :39am Paroxysmal atrial fibrillation chron ic August 01, 2024 8:39am [facility] Work Phone: 1(819) 286-120203-21-2025 Evaluation note* Diagnosis Onset Date Resolution Status Admit Date ERNESTO (obstructive sleep apnea) acute May 25, 2024 8:44am Asymptomatic PVCs chronic May 062024 8:44am Essential hypertension chronic Ma 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 Records from the [facility] are reviewed. [facility] short[facility] of breath and fatigue during sinus [...] for dysphoric mood. Physical Examination: Vitals: Vitals: 11/28/ 0844 BP: 116/60 BP Location: Right arm [...] from the atrial fibrillation. documented in this [facility]09-18-2023 Note* Exam Date Time Procedure Performing Provider Status 11/22/22 7:40 AM Echocardiogram, Adult (AOH) Auth (Verified) [facility] 03-15-2023 Evaluation + Plan noteExtracted from: Title:Clinical Document Author:LAURIE QUINONES ate:05/19/22 L[facility]HER ADMISSION HISTORY AN D PHYSICIAL CHIEF COMPLAINT: Personal history of colon polyps HISTORY OF PRESENT ILLNESS: Personal history of colon polyps, last colonoscopy 3 to 4 years ago REVIEW OF SYSTEMS: Constitutional: denies weight loss Cardiovascular:denies chest pain, palpitations Respiratory:denies shortness of breath Gastrointestinal:no abd pain Musculoskeletal: no arthralgias Skin: no rashes . ACTIVE PROBLEMS: (15) Anticoagulated (997654854) Atrial fibrillation (16940385) BMI 34.0-34.9,adult (059003834) Colon polyp (552944008) Cough syncope (627833988) 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 antithrombotics/antiplatelets (117317308) Non-tobacco user (346538066) Obese (7322923561) Post-viral cough syndrome (5316694107) Prostate cancer (0368687381) Prostate mass (030520950) Screening for colon cancer (971407628) Screening for diabetes mellitus (620472166) Screening for ischemic heart disease (935442773) Screening for osteoporosis (430870729) MEDICATIONS: Active Inpt Meds: None Active PRN [...] for 4 days prior to the procedure [facility] 03-15-2023 Hospital Discharge instructions Patient Education [...] before eating solid foods. General instructions Take skyu-ybf-aduragt and prescription medicines only as told by [...] 06/13/2016 Document Revised: 05/22/2018 Document Reviewed: 06/13/2016 [employer]Works (Closed) Patient Education 2020 [employer] ([employer] 05/19/2022 08:47:53 Colonoscopy, Adult, Care After, Jiej-dh-Uwjw Colonoscopy, Adult, Care After This sheet gives [...] are soft and easy to digest. Take pxji-pjm-gcgnsrh or prescription medicines only as told by [...] 03/26/2011 Document Revised: 12/22/2017 Document Reviewed: 11/15/2016 [employer] (Closed) Patient Education Site9. Follow Up Care 05/12/2022 14:43:57 With:AISSATOU TRUJILLO Address: [address] [place] [phone] When: Unknown [facility] 03-15-2023 Anesthesiology Consult note Patient: RAMIRO [...] by AISHWARYA WATKINS on 05/19/2022 09:18 AM [facility]03-15-2023 Summary of episode note Discharge Instructions Thank you for allowing [facility] to assist you with your healthcare needs. The following is importantdischarge information regarding your hospital visit. Your Care Team AISSATOU TRUJILLO What to do next Instructions From Your Doctor Brooks Marcus today Follow Up Appointments Follow Up with AISSATOU TRUJILLO When Where: [address] [place] [phone] The Following Activity and Diet Have Been [...] before eating solid foods. General instructions Take ratr-rcf-nazgoja and prescription medicines only as told by [...] 06/13/2016 Document Revised: 05/22/2018 Document Reviewed: 06/13/2016 [employer] (Closed) Patient Education 2020 [employer]. Colonoscopy, Adult, Care After This sheet gives [...] are soft and easy to digest. Take rqpb-ffr-syppyox or prescription medicines only as told by [...] 03/26/2011 Document Revised: 12/22/2017 Document Reviewed: 11/15/2016 ElseEasily[employer] Patient Education 2020 [employer] (Closed) Inc[employer] Additional Information VACCINATE! IT SAVES LIVES! Members of the community who have not yet received the COVID-19 vaccine and would like to receive it can visit one of [facility] vaccine clinics. There are many vaccine clinic locations within the [facility]. For locations and available times, please visit [email or web address] It is important to note that some COVID mobile vaccine clinics are held outdoors and may be canceled in rainy or stormy conditions. To learn more about pediatric vaccinations (ages 5-11), we invite you to visit the [facility] webpage. [email or web address]/[email or web address]-[email or web address] [email or web address] learn more about the COVID-19 vaccine, we invite you to visit the CDC website for a list of frequently asked questions. https://www.cdc.gov/coronavirus/2019-ncov/vaccines/faq.html [facility] Patient Portal Access Instructions: Stay connected with your healthcare team and access your personal medical information anytime with the [facility] Patient Portal.If you would like a full copy of your medical records, please contact the [facility] Medical Records Department, Tuesday through Tuesday between 8a.m. and 4:30p.m. Please follow the directions below to access the portal: 1.Access the email account you provided upon registration to the hospital.2.Look for an invitation email from [facility].3.Open the email and access the invitation link: Accept Invitation to [facility]4.Fill in the required amaya to create your account. Sign into [email or web address] with your username and password that you [...] you will allow to register on the [facility] Patient Portal for access to your information. You can also access the [facility] Patient Portal on the [employer] zuri. Simply click on Health Records under [facility] and then click on the [facility] logo. HOW TO SAFELY DISPOSE OF PRESCRIPTION [...] Call your local pharmacy or go to http://bit.ly/3E5Al0k to find one close to you.3.Make use of household items: Use cat litter or old coffee grounds to dispose medications if other options arenot available. Mix your drugs with these household products, seal them in an airtight container andthrow it into the garbage. Call [facility]: [phone] to be sure your drugs can be [...] Care, Care After Colonoscopy, Adult, Care After, Jxcm-dy-Esrt Medication Leaflets My discharge plan and instructions have been reviewed and explained to me and IDAI DAVID W understand my current condition and have read and understand these discharge instructions. I have received a written copy of the plan/instructions. If I have questions, I am aware that I should contact my doctor. 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: Date/Time: Relationship to Patient: Witness Name/Signature: Date/Time: [facility]03-15-2023 Anesthesiology Consult note Patient: RAMIRO LALA [...] list: Medical Atrial fibrillation / SNOMED CT 52231353 / Confirmed BMI 34.0-34.9,adult / SNOMED CT 057337835 / Confirmed Anticoagulated / SNOMED CT 434264455 / Confirmed Prostate cancer / SNOMED CT 8094479509 / Confirmed Obese / SNOMED CT 2235799378 / Confirmed Screening for ischemic heart disease / SNOMED CT 618342694 / Confirmed Screening for diabetes mellitus / SNOMED CT 297078741 / Confirmed Screening for osteoporosis / SNOMED CT 594801933 / Confirmed Screening for colon cancer / SNOMED CT 527382208 / Confirmed detention current use of antithrombotics/antiplatelets / SNOMED CT 020004109 / Confirmed Colon polyp / SNOMED CT 484049282 / Confirmed Post-viral cough syndrome / SNOMED CT 9484826680 / Confirmed Prostate mass / SNOMED CT 492910818 / Confirmed Non-tobacco user / SNOMED CT 304025582 / Confirmed Cough syncope / SNOMED CT 266788915 / Confirmed, Active Problems (15) Anticoagulated Atrial fibrillation BMI 34.0-34.9,adult Colon polyp Cough syncope 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 Vasectomy (45468675). Hand (731801740). Comments: 09/23/2021 17:24 EDT WINIFRED Smith left hand I&D Cardiac catheterization (42008544). Hernia (598365380). Comments: 09/23/2021 17:23 EDT WINIFRED Smith umbilical Tonsillectomy (724947688). Social History Social & Psychosocial Habits Alcohol [...] data available , Lab results: 05/19/2022 7:17 EDT [facility] History and Physical . Assessment and Plan [place] [employer] Anesthesiologists (ASA) physical status classification: Class III. Anesthetic Preoperative Plan Premedication: None. Anesthetic technique: MAC. Induction: intravenously. Postoperative pain management: Per surgeon. Risks discussed: nausea, vomiting, headache, sore throat, dental injury, hypotension, allergic reaction, serious complications. Informed consent: signed by patient. Digitally Signed by AISHWARYA WATKINS on 05/19/2022 08:37 AM [facility]03-15-2023 Note LUTHER ADMISSION HISTORY AND PHYSICIAL CHIEF COMPLAINT: Personal history of colon polyps HISTORY OF PRESENT ILLNESS: Personal history of colon polyps, last colonoscopy 3 to 4 years ago REVIEW OF SYSTEMS: Constitutional: denies weight loss Cardiovascular:denies chest pain, palpitations Respiratory:denies shortness of breath Gastrointestinal:no abd pain Musculoskeletal: no arthralgias Skin: no rashes . 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 antithrombotics/antiplatelets (253997332) Non-tobacco user (220819791) Obese (7276926514) Post-viral cough syndrome (0988930124) Prostate cancer (9347368781) Prostate mass (526521989) Screening for colon cancer (348060027) Screening for diabetes mellitus (044387997) Screening for ischemic heart disease (609479782) Screening for osteoporosis (946009394) MEDICATIONS: Active Inpt Meds: None Active PRN [...] LAURIE QUINONES DO on 05/19/2022 07:19 AM [facility]07-27-2022 SARS-CoV-2 (COVID-19) RNA AYLIN+probe Ql (Nph)Negative (09/30/21 12:00 PM)AO Auto Urine SSEvaluation + Plan note No data available for this section [facility] Evaluation noteNo assessment information available [facility] Work Phone: Evaluation note* Diagnosis Onset Date Resolution Status Asymptomatic PVCs acute Essential hypertension acute New onset atrial fibrillation acute Preoperative cardiovascular examination acute [facility] Work Phone: Evaluation note* Diagnosis Onset Date Resolution Status New onset atrial fibrillation acute Preoperative cardiovascular examination acute Asymptomatic PVCs chronic Essential hypertension chron ic Asymptomatic PVCs chronic Essential hypertension chron ic Paroxysmal atrial fibrillation chronic [facility] Work Phone: Evaluation note* Diagnosis Onset Date Resolution Status 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 Asymptomatic PVCs chronic Essential hypertension chron ic Paroxysmal atrial fibrillation chronic 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 [facility] Work Phone: Evaluation note* Diagnosis Onset [...] recurrent cast ration-sensitive adenocarcinoma of prostate acute [facility] Work Phone: Evaluation note* Diagnosis Onset [...] recurrent cast ration-sensitive adenocarcinoma of prostate acute [facility] Work Phone: Evaluation note* Diagnosis Onset [...] acut e Malignant neoplasm of prostate acute [facility] Work Phone: Evaluation note* Diagnosis Onset [...] acut e Malignant neoplasm of prostate acute [facility] Work Phone: Evaluation note* Diagnosis Onset Date Resolution Status Hypersomnolence acute Asymptomatic PVCs chronic Essential hypertension chron ic Nonrheumatic mitral (valve) insufficiency chronic Paroxysmal atrial fibrillation chronic [facility] Work Phone: Evaluation note* Diagnosis Onset Date Resolution Status Lipoma of face acute Mass of face acute 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 [facility] Work Phone: Evaluation note* Diagnosis Onset Date Resolution Status 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 [facility] Work Phone: Evaluation note* Diagnosis Paroxysmal atrial fibrillation (HCC) Atrial fibrillation documented [facility] Discharge instructions No data available for this section [facility] Hospital Discharge instructions Additional Instructions Im[facility] Used?: [facility] Work Phone: Progress note No data available for this section [facility] Reason for referral (narrative)No reason for referral information availableProm[facility]ica [facility] Work Phone: Summary Purpose Family History No Family History Records Found Relationship Condition Age at Onset Recorded Date/T celia mother Hypertension Unknown Malignant neoplasm Unknown father Hypertension Unknown Advance Directives No Advanced Directives Records Found Advance Directive Response Recorded Date/ Time Advance Directives No June 22, 2 016 2:58pm Living Will No June 23, 2015 2:58pm Power of Stripping And Booking Machine Operator No June 22 2:58pm Advance Directive Response Recorded Date/ Time Advance Directives No June 22 2 016 2:58pm Living Will Yes September 16, 2021 2:24pm Power of Stripping And Booking Machine Operator Yes September 16 2:24pm Advance Directive Response Recorded Date/ Time Name of Medical Power of Stripping And Booking Machine Operator SPOUSE September 16, 2021 2:24pm Advance Directives No June 22, 2 016 2:58pm Living Will Yes September 16, 2021 2:24pm Power of Stripping And Booking Machine Operator Yes September 16 2:24pm Advance Directive Response Recorded Date/ Time Name of Medical Power of Stripping And Booking Machine Operator SPOUSE September 16, 2021 2:24pm Name of Medical Power of Stripping And Booking Machine Operator Mitzi Staffordneli de December 18, 2021 4:13pm Advance Directives No June 22, 2 016 2:58pm Living Will Yes December 18 4:13pm Power of Stripping And Booking Machine Operator Yes December 18, 2021 4:13pm Advance Directive Response Recorded Date/ Time Advance Directives No June 22 2 016 1:58pm Living Will Yes December 18 3:13pm Power of Stripping And Booking Machine Operator Yes December 18, 2021 3:13pm Name of Medical Power of Stripping And Booking Machine Operator Mitzi Staffordneli de December 18, 2021 3:13pm Advance Directive Response Recorded Date/ Time Advance Directives No June 22, 2 016 2:58pm Living Will Yes December 18 4:13pm Power of Stripping And Booking Machine Operator Yes December 18, 2021 4:13pm Advance Directive Response Recorded Date/ Time Advance Directives No June 22, 016 1:58pm Living Will Yes December 18 3:13pm Power of Stripping And Booking Machine Operator Yes December 18, 2021 3:13pm Advance Directive Response Recorded Date/ Time Name of Medical Power of Stripping And Booking Machine Operator Karly mcnulty March 03, 2023 10:30am Advance Directives No June 22 016 1:58pm Living Will Yes March 03 10:30am Power of Stripping And Booking Machine Operator Yes March 03, 2023 10:30am Name of Medical Power of Stripping And Booking Machine Operator KARLY SERRANO January 11, 2023 11:24am Advance Directive Response Recorded Date/ Time Advance Directives No June 22 016 2:58pm Living Will Yes March 03, 11:30am Power of Stripping And Booking Machine Operator Yes March 03, 2023 11:30am Advance Directive Response Recorded Date/ Time Living Will Yes March 03 11:30am Do you have a Healthcare Power of Stripping And Booking Machine Operator? Yes March 03, 2023 11:30am Advance Directives No June 22 016 2:58pm Advance Directive Response Recorded Date/ Time Living Will Yes March 03 11:30am Do you have a Healthcare Power of Stripping And Booking Machine Operator? Yes March 03, 2023 11:30am Living Will No June 21, 2024 9:33am Do you have a Healthcare Power of Stripping And Booking Machine Operator? 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 [facility] 2024 8:39am Paroxysmal atrial fibrillation August 01, [...] Essential hypertension July 10, 2024 12: 51pm detention current use of 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 M 2024 12:51pm Paroxysmal atrial fibrillation July 10, 2024 12:51pm 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 July 10, 2024 1:59pm Dyspnea on exertion August 01, 2024 8:39a m On amiodarone therapy August 01, 2024 8:3 9am Essential hypertension August 01, 2024 8: 39am detention current use of 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 M 2024 8:39am Paroxysmal atrial fibrillation August 01, 2024 8:39am Chief Complaint Admit Date PAF *KIM TO READ* June 06, 2024 [...] m AFIB August 21, 2024 7:55 am Atrial fibrillation August 21, 2024 8:08 am E ORDERS September 21, 2024 9:28 am I48.0 - Paroxysmal atrial fibrillation J steffany 2024 9:00am Reason for Visit Admit Date Essential hypertension July 10, 2024 12: 51pm 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 Connie woodward 2024 12:51pm Paroxysmal atrial fibrillation July 10, 2024 12:51pm 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 July 10, 2024 1:59pm Dyspnea on exertion August 01, 2024 8:39a m On amiodarone therapy August 01, 2024 8:3 9am Essential hypertension August 01, 2024 8: 39am 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 Connie woodward 2024 8:39am Paroxysmal atrial fibrillation August 01, 2024 8:39am Additional Source Comments (unrecognized sect ion and content) No Status Records FoundNo Status Records FoundNo Status Records FoundNo Status Records FoundNo Status Records Found INFORMATION SOURCE (unrecogn ized section and content) DATE CREATED AUTHOR 07/07/2020 [facility] DATE CREATED AUTHOR AUTHOR'S ORGANIZ ATION 02/08/2023 [facility] ([place]) DATE CREATED AUTHOR AUTHOR'S ORGANIZ ATION 12/01/2023 [facility] DATE CREATED AUTHOR AUTHOR'S ORGANIZ ATION 06/18/2024 [facility] DATE CREATED AUTHOR AUTHOR'S ORGANIZ ATION 10/16/[address] [facility] Goals (unrecognized section and content) Goals may [...] Singh MD Family Provider Active Aissatou Trujillo ASSEMBLER TUBING, ASSEMBLER TUBING-C Primary Care Provider Active Team Status: Inactive Member Role Status Dates Aissatou Trujillo ASSEMBLER TUBING, ASSEMBLER TUBING-C Primary Care Provider Active Dr. Aneudy Santiago MD Admit Provid er, Attending Provider, Referring Provider Active Team Status: Inactive Member Role Status Dates Aissatou Trujillo ASSEMBLER TUBING, ASSEMBLER TUBING-C Primary Care Provider Active Dr. Aneudy Santiago MD Attending Provider, Referr ing Provider Active Team Status: Inactive Member Role Status Dates Aissatou Trujillo ASSEMBLER TUBING, ASSEMBLER TUBING-C Primary Care Provider, Referri ng Provider Active Yvon Yang ASSEMBLER TUBING, ASSEMBLER TUBING-C Attending Provider Active Team Status: Inactive Member Role Status Dates Aissatou Trujillo ASSEMBLER TUBING, ASSEMBLER TUBING-C Primary Care Provider Active Dr. Yoav Olivares DO Attending Provider Active Dr. Aneudy Santiago MD Referring Provider Active Team Status: Inactive Member Role Status Dates Aissatou Trujillo ASSEMBLER TUBING, ASSEMBLER TUBING-C Primary Care Provider, Referri ng Provider Active Dr. Yoav Olivares DO Attending Provider Active Team Status: Active Member Role Status Dates Aissatou Trujillo ASSEMBLER TUBING, ASSEMBLER TUBING-C Primary Care Provider Active Dr. Yoav Olivares DO Attending Provider, Referring P rovider Active Team Status: Inactive Member Role Status Dates Aissatou Trujillo ASSEMBLER TUBING, ASSEMBLER TUBING-C Primary Care Provider Active Yvon Yang ASSEMBLER TUBING, ASSEMBLER TUBING-C Attending Provider, Referring Pro vider Active Team Status: Inactive Member Role Status Dates Aissatou Trujillo ASSEMBLER TUBING, ASSEMBLER TUBING-C Primary Care Provider Active Dr. Yoav Olivares DO Attending Provider, Referring P rovider Active Team Status: Inactive Member Role Status Dates Aissatou Trujillo ASSEMBLER TUBING, ASSEMBLER TUBING-C Primary Care Provider Active Dr. Ramiro Chang MD Active Dr. Yoav Olivares DO Attending Provider, Referring P rovider Active Team Status: Inactive Member Role Status Dates Aissatou Trujillo ASSEMBLER TUBING, ASSEMBLER TUBING-C Primary Care Provider Active Dr. Beto Huizar MD Attending Provider, Refe rring Provider Active Team Status: Inactive Member Role Status Dates Aissatou Trujillo ASSEMBLER TUBING, ASSEMBLER TUBING-C Primary Care Provider, Referri ng Provider Active Urmila New ASSEMBLER TUBING, ASSEMBLER TUBING-C Attending Provider Active Team Status: Active Member Role Status Dates Aissatou Trujillo ASSEMBLER TUBING, ASSEMBLER TUBING-C Primary Care Provider Active Yvon Yang ASSEMBLER TUBING, ASSEMBLER TUBING-C Attending Provider, Referring Pro vider Active Team Status: Active Member Role Status Dates Aissatou Trujillo ASSEMBLER TUBING, ASSEMBLER TUBING-C Primary Care Provider Active Yvon Yang ASSEMBLER TUBING, ASSEMBLER TUBING-C Attending Provider Active Team Status: Inactive Member Role Status Dates Aissatou Trujillo ASSEMBLER TUBING, ASSEMBLER TUBING-C Primary Care Provider Active Daina Archibald , ASSEMBLER TUBING-C Attending Provider, Referrin g Provider Active Team Status: Inactive Member Role Status Dates Aissatou Trujillo ASSEMBLER TUBING, ASSEMBLER TUBING-C Primary Care Provider Active Dr. Aneudy Santiago MD Attending Provider Active Team Status: Inactive Member Role Status Dates Aissatou Trujillo ASSEMBLER TUBING, ASSEMBLER TUBING-C Primary Care Provider Active Dr. Yoav Olivares DO Attending Provider Active Team Status: Active Member Role Status Dates Aissatou Trujillo ASSEMBLER TUBING, ASSEMBLER TUBING-C Primary Care Provider Active Dr. Wagner Akdins MD Attending Provider Activ e Dr. Beto Huizar MD Referring Provider Activ e Team Status: Inactive Member Role Status Dates Aissatou Trujillo ASSEMBLER TUBING, ASSEMBLER TUBING-C Primary Care Provider Active Dr. Luis Pringle MD Attending Provider, Emergency Provider Active Team Status: Inactive Member Role Status Dates Aissatou Trujillo ASSEMBLER TUBING, ASSEMBLER TUBING-C Primary Care Provider Active Dr. Yoav Olivares DO Attending Provider, Referring P archana Active Dr. Aneudy Santiago MD Other Provider Active Team Status: Active Member Role Status Dates Aissatou Trujillo ASSEMBLER TUBING, ASSEMBLER TUBING-C Primary Care Provider Active Team Status: Inactive Member Role Status Dates Aissatou Trujillo ASSEMBLER TUBING, ASSEMBLER TUBING-C Primary Care Provider Active Start: April 17, 2024 End: April 17, 2024 Ling Beck Attending Provider Active Start : April 17, 2024 End: April 17, 2024 Ling Beck Referring Provider Active Start : April 17, 2024 End: April 17, 2024 Team Status: Inactive Member Role Status Dates Aissatou Trujillo ASSEMBLER TUBING, ASSEMBLER TUBING-C Primary Care Provider Active Start: May 25, 2024 End: May 25, 2024 Aissatou Trujillo ASSEMBLER TUBING, ASSEMBLER TUBING-C Referring Provider Active Start: May 25, 2024 End: May 25, 2024 Marsha NOYOLA, PA Attending Provider Active Start: May 25, 2024 End: May 25, 2024 Team Status: Inactive Member Role Status Dates Aissatou Trujillo ASSEMBLER TUBING, ASSEMBLER TUBING-C Primary Care Provider Active Start: June 06, 2024 End: June 06, 2024 Marsha NOYOLA, PA Attending Provider Active Start: June 06, 2024 End: June 06, 2024 Marsha Templeton PA, PA Referring Provider Active Start: June 06, 2024 End: June 06, 2024 Team Status: Active Member Role Status Dates Aissatou Trujillo ASSEMBLER TUBING, ASSEMBLER TUBING-C Primary Care Provider Active Start: June 06, 2024 Dr. Momo Alvarez MD Attending Provider Active S tart: June 06, 2024 Marsha NOYOLA, PA Referring Provider Active Start: June 06, 2024 Team Status: Inactive Member Role Status Dates Aissatou Trujillo ASSEMBLER TUBING, ASSEMBLER TUBING-C Primary Care Provider Active Start: June 21, 2024 End: June 21, 2024 Dr. Carly Adams DO Emergency Provider Active S tart: June 21, 2024 End: June 21, 2024 Team Status: Inactive Member Role Status Dates Aissatou Trujillo ASSEMBLER TUBING, ASSEMBLER TUBING-C Primary Care Provider Active Start: June 21, 2024 End: June 21, 2024 Dr. Carly Adams DO Attending Provider Active S tart: June 21, 2024 End: June 21, 2024 Dr. Carly Adams DO Emergency Provider Active S tart: June 21, 2024 End: June 21, 2024 Team Status: Inactive Member Role Status Dates Aissatou Trujillo ASSEMBLER TUBING, ASSEMBLER TUBING-C Primary Care Provider Active Start: June 25, 2024 End: June 25, 2024 Aissatou Trujillo ASSEMBLER TUBING, ASSEMBLER TUBING-C Referring Provider Active Start: June 25, 2024 End: June 25, 2024 Marsha Templeton PA, PA Attending Provider Active Start: June 25, 2024 End: June 25, 2024 Team Status: Inactive Member Role Status Dates Aissatou Trujillo ASSEMBLER TUBING, ASSEMBLER TUBING-C Primary Care Provider Active Start: July 06, 2024 End: July 06, 2024 Dr. oYav Olivares DO Attending Provider Active Start: July 06, 2024 End: July 06, 2024 Dr. Yoav Olivares DO Referring Provider Active Start: July 06, 2024 End: July 06, 2024 Team Status: Inactive Member Role Status Dates Aissatou Trujillo ASSEMBLER TUBING, ASSEMBLER TUBING-C Primary Care Provider Active Start: July 10, 2024 End: July 10, 2024 Aissatou Trujillo ASSEMBLER TUBING, ASSEMBLER TUBING-C Referring Provider Active Start: July 10, 2024 End: July 10, 2024 JAZMÍN Sepulveda Attending Provider Active St art: July 10, 2024 End: July 10, 2024 Team Status: Inactive Member Role Status Dates Aissatou Trujillo ASSEMBLER TUBING, ASSEMBLER TUBING-C Primary Care Provider Active Start: July 10, 2024 End: July 10, 2024 Dr. Yoav Olivares DO Attending Provider Active Start: July 10, 2024 End: July 10, 2024 Team Status: Inactive Member Role Status Dates Aissatou Trujillo ASSEMBLER TUBING, ASSEMBLER TUBING-C Primary Care Provider Active Start: August 01, 2024 End: August 01, 2024 Aissatou Trujillo ASSEMBLER TUBING, ASSEMBLER TUBING-C Referring Provider Active Start: August 01, 2024 End: August 01, 2024 JAZMÍN Sepulveda Attending Provider Active St art: August 01, 2024 End: August 01, 2024 Team Status: Inactive Member Role Status Dates Aissatou Trujillo ASSEMBLER TUBING, ASSEMBLER TUBING-C Primary Care Provider Active Start: August 21, 2024 End: August 21, 2024 JAZMÍN Sepulveda Attending Provider Active St art: August 21, 2024 End: August 21, 2024 JAZMÍN Sepulveda Referring Provider Active St art: August 21, 2024 End: August 21, 2024 Team Status: Active Member Role/Relationship Status Dates Aissatou Trujillo ASSEMBLER TUBING, ASSEMBLER TUBING-C Primary Care Provider Active Team Status: Inactive Member Role/Relationship Status Dates Aissatou Trujillo ASSEMBLER TUBING, ASSEMBLER TUBING-C Primary Care Provider Active Start: June 06, 2024 End: June 06, 2024 Marsha Templeton PA, PA Attending Provider Active Start: June 06, 2024 End: June 06, 2024 Marsha Templeton PA, PA Referring Provider Active Start: June 06, 2024 End: June 06, 2024 Team Status: Active Member Role/Relationship Status Dates Aissatou Trujillo ASSEMBLER TUBING, ASSEMBLER TUBING-C Primary Care Provider Active Start: June 06, 2024 Dr. Momo Alvarez MD Attending Provider Active S tart: June 06, 2024 Marsha Templeton PA, PA Referring Provider Active Start: June 06, 2024 Team Status: Inactive Member Role/Relationship Status Dates Aissatou Trujillo ASSEMBLER TUBING, ASSEMBLER TUBING-C Primary Care Provider Active Start: June 21, 2024 End: June 21, 2024 Dr. Carly Adams , Attending Provider Active S tart: June 21, 2024 End: June 21, 2024 Dr. Carly Adams , Emergency Provider Active S tart: June 21, 2024 End: June 21, 2024 Team Status: Inactive Member Role/Relationship Status Dates Aissatou Trujillo ASSEMBLER TUBING, ASSEMBLER TUBING-C Primary Care Provider Active Start: June 25, 2024 End: June 25, 2024 Aissatou Trujillo ASSEMBLER TUBING, ASSEMBLER TUBING-C Referring Provider Active Start: June 25, 2024 End: June 25, 2024 Marsha NOYOLA, PA Attending Provider Active Start: June 25, 2024 End: June 25, 2024 Team Status: Inactive Member Role/Relationship Status Dates Aissatou Trujillo ASSEMBLER TUBING, ASSEMBLER TUBING-C Primary Care Provider Active Start: July 06, 2024 End: July 06, 2024 Dr. Yoav Olivares DO Attending Provider Active Start: July 06, 2024 End: July 06, 2024 Dr. Yoav Olivares DO Referring Provider Active Start: July 06, 2024 End: July 06, 2024 Team Status: Inactive Member Role/Relationship Status Dates Aissatou Trujillo ASSEMBLER TUBING, ASSEMBLER TUBING-C Primary Care Provider Active Start: July 10, 2024 End: July 10, 2024 Aissatou Trujillo ASSEMBLER TUBING, ASSEMBLER TUBING-C Referring Provider Active Start: July 10, 2024 End: July 10, 2024 JAZMÍN Sepulveda Attending Provider Active St art: July 10, 2024 End: July 10, 2024 Team Status: Inactive Member Role/Relationship Status Dates Aissatou Trujillo ASSEMBLER TUBING, ASSEMBLER TUBING-C Primary Care Provider Active Start: July 10, 2024 End: July 10, 2024 Dr. Yoav Olivares DO Attending Provider Active Start: July 10, 2024 End: July 10, 2024 Team Status: Inactive Member Role/Relationship Status Dates Aissatou Trujillo ASSEMBLER TUBING, ASSEMBLER TUBING-C Primary Care Provider Active Start: August 01, 2024 End: August 01, 2024 Aissatou Trujillo ASSEMBLER TUBING, ASSEMBLER TUBING-C Referring Provider Active Start: August 01, 2024 End: August 01, 2024 JAZMÍN Sepulveda Attending Provider Active St art: August 01, 2024 End: August 01, 2024 Team Status: Inactive Member Role/Relationship Status Dates Aissatou Trujillo ASSEMBLER TUBING, ASSEMBLER TUBING-C Primary Care Provider Active Start: August 21, 2024 End: August 21, 2024 JAZMÍN Sepulveda Attending Provider Active St art: August 21, 2024 End: August 21, 2024 JAZMÍN Sepulveda Referring Provider Active St art: August 21, 2024 End: August 21, 2024 Team Status: Active Member Role/Relationship Status Dates Aissatou Trujillo NP, ASSEMBLER TUBING-C Primary Care Provider Active Start: August 21, 2024 Dr. Momo Alvarez MD Attending Provider Active S tart: August 21, 2024 JAZMÍN Sepulveda Referring Provider Active St art: August 21, 2024 Team Status: Inactive Member Role/Relationship Status Dates Aissatou Trujillo NP, ASSEMBLER TUBING-C Primary Care Provider Active Start: September 21, 2024 End: September 21, 2024 JAZMÍN Sepulveda Attending Provider Active St art: September 21, 2024 End: September 21, 2024 JAZMÍN Sepulveda Referring Provider Active St art: September 21, 2024 End: September 21, 2024 Team Status: Active Member Role/Relationship Status Dates Aissatou Trujillo NP, ASSEMBLER TUBING-C Primary Care Provider Active Start: September 24, 2024 JAZMÍN Sepulveda Attending Provider Active St art: September 24, 2024 JAZMÍN Sepulveda Referring Provider Active St art: September 24, 2024 Team Status: Inactive Member Role/Relationship Status Dates Aissatou Trujillo NP, ASSEMBLER TUBING-C Primary Care Provider Active Start: September 24, 2024 End: September 24, 2024 JAZMÍN Sepulveda Attending Provider Active St art: September 24, 2024 End: September 24, 2024 Keshawn Saeed PA Referring Provider Active St art: September 24, 2024 End: September 24, 2024 Care Team (unrecognized sect ion and content) Care Team Personnel Name: AISSATOU TRUJILLO KNURLING MACHINE OPERATOR-STRAPPING MACHINE OPERATOR Position: P4 Advanced Practice Nurse Med Service: Active Provider Member Role: Primary Care Physician Address: Address: [address] [facility] [facility] [place] [address]- Care Team Related Persons Name: KARLY LALA Reason for Visit (unrecogniz ed section and content) Reason Comments New Patient PAF Specialty Diagnoses / Procedures Referred By Contact Referred To Contact Electrophysiology / Cardiology Diagnoses Paroxysmal atrial fibrillation (HCC) Procedures [place] OFFICE/OP CONSLTJ NEW/EST PT MOD MDM 40 MINUTES Marsha Templeton PA [address], [address] [address] Maurice Fulton MD [address] [place] [address] Referral ID Status Reason Start Date Expiration Date Visits Re quested Visits Authorized [id number] Closed 10/06/2023 10/05/2024 1 1 FOR RECORDS [...] BE BASED ON THE PRIMARY CLINICAL RECORDS. [employer] provides no warranty or guarantee of the accuracy or completeness of information in this document.
[2024-10-22 07:11] LABS: PSA,Total- Diagnostic < 0.02 ng/mL (0.00-4.00)
== END | disposition home or self-care (01) ==
LOC: LAB 05:54
PROVIDERS: PCP Nurse Practitioner Family; Referring Provider Urology; Visit Provider Urology
DX: C61 Malignant neoplasm of prostate (principal)
CPT/HCPCS: 36415; 84153

== ENCOUNTER → 2024-12-21 | Outpatient (CLI) | payer MEDICARE, SELFPAY ==
--- OUTSIDE RECORDS SUMMARY | 2024-12-21 06:49 | XMS RPT_ITS | CCD ---
Author Organization [facility] Care Team Providers Care Mechanical Engineering Manager Name Role Phone AISSATOU CRUZ Primary Care Physician Darin LINK, FARIBA-C Aissatou Primary Care Provider Darin LINK NP-C Aissatou Referring Provider 1([facility] )[phone] Dr. Helio Lopez Attending Provider 1([facility])[phone] Darin LINK NP-C Aissatou Primary Care Provider [phone] Dr. Helio Lopez Attending Provider Dr. Aneudy Santiago Referring Provider [phone] Dr. Helio Lopez Referring Provider 1([facility])[phone] Dr. Helio Lopez Other Provider 1([facility])[phone] Helio Lopez Referring Provider 1([facility])[phone] Trey LINK NP-Gelacio Fernando Attending Provider Darin LINK NP-Gelacio Reyez Primary Care Provider [phone] Dr. Yoav Olivares Attending Provider Dr. Aneudy Santiago Referring Provider [phone] Darin LINK NP-Gelacio Reyez Referring Provider 1([facility] )[phone] Trey LINK NP-Gelacio Fernando Attending Provider Dr. Yoav Olivares Referring Provider [phone] Darin LINK NP-C Aissatou Primary Care Provider [phone] Darin LINK NP-C Aissatou Referring Provider 1([facility] [phone] Dr. Yoav Olivares Attending Provider Virgen PERIPATOLOGIST, PERIPATOLOGIST-C Urmila Attending Provider Lorson PERIPATOLOGIST, PERIPATOLOGIST-C Johnston Primary Care Provider Dr. Yoav Olivares Attending Provider Dr. Yoav Olivares Referring Provider Lorson PERIPATOLOGIST, PERIPATOLOGIST-C Aissatou Referring Provider [phone] Trey PERIPATOLOGIST, PERIPATOLOGIST-C Yvon Fernando Attending Provider Lorson PERIPATOLOGIST, PERIPATOLOGIST-C Johnston Primary Care Provider Lorson PERIPATOLOGIST, PERIPATOLOGIST-C Aissatou Referring Provider [phone] Trey PERIPATOLOGIST, PERIPATOLOGIST-C Yvon Fernando Attending Provider LORSON TRIAGE RN-SISAL PICKER, [facility] Care Unavail able LAURIE QUINONES DO Attending Unavailable LORSON TRIAGE RN-SISAL PICKER, [place] POINTE Primary Care Unavail able LORSON TRIAGE RN-SISAL PICKER, AISSATOU Attending Unavail able LORSON TRIAGE RN-SISAL PICKER, AISSATOU Attending Unavail able LORSON TRIAGE RN-SISAL PICKER, [place] PO[place]TE Referring Unavail able LORSON TRIAGE RN-SISAL PICKER, [place] PO[place]TE Primary Care Unavail able LORSON TRIAGE RN-SISAL PICKER, AISSATOU Attending Unavail able LORSON TRIAGE RN-SISAL PICKER, [place] PO[place]TE Primary Care Unavail able LORSON TRIAGE RN-SISAL PICKER, [place] PO[place]TE Primary Care Unavail able MONTSE TRIAGE RN-SISAL PICKER, JEAN PAUL Attending Sushil Webster PERIPATOLOGIST, PERIPATOLOGIST-C [facility] Care Provider Dr. Wagner Adkins Attending Provider [phone] Dr. Beto Huizar Referring Provider [phone] Dr. Yoav Olivares Attending Provider Darin PERIPATOLOGIST, PERIPATOLOGIST-C Johnston Primary Care Provider Trey PERIPATOLOGIST, PERIPATOLOGIST-C Yvon Fernando Attending Provider Dr. Yoav Olivares Attending Provider Unavailable Primary Care Provider UnavailMAURICE Mayberry Attending Unavailable MARSHA KERR Referring Unavailable Lorson PERIPATOLOGIST-C, Johnston Primary Care Provider Ling Beck Attending Provider AikenAvelen Referring Provider Lorson PERIPATOLOGIST-C, Johnston Referring Provider [phone] Marsha Celis Attending Provider [phone] Marsha Celis Referring Provider [phone] LORSON TRIAGE RN-SISAL PICKER, AISSATOU Attending Unavail able LORSON TRIAGE RN-SISAL PICKER, [place] PO[place] Primary Care Unavail able LORSON TRIAGE RN-SISAL PICKER, [place] PO[place]TE Attending Unavail able LORSON TRIAGE RN-SISAL PICKER, [place] PO[place] Primary Care Unavail able Kim NARVAEZ, Dr. Barr Attending Provider [phone] Bryan [facility], Dr. Carroll Emergency Provider [facility], Dr. Carroll Attending Provider [facility], Dr. Cason Attending Provider Marshall , Dr. Cason Referring Provider Keshawn Guzman Attending Provider Lorson PERIPATOLOGIST-C, Johnston Primary Care Provider [phone] Keshawn Guzman Referring Provider [phone] Margaritason PERIPATOLOGIST-C, Johnston Primary Care Provider [phone] Marsha Celis Attending Provider [phone] Margaritason PERIPATOLOGIST-C, Johnston Referring Provider [phone] Lorson PERIPATOLOGIST-C, Johnston Primary Care Provider [phone] Marsha Celis Attending Provider [phone] Dr. Momo Alvarez MD Attending Provider [phone] Kevin NARVAEZ, Dr. Aneudy Beltran Attending Provider [phone] Dr. Aneudy Santiago MD Referring Provider Unavailable Primary Care Provider Unavailabl e Lorson TRIAGE RN.SISAL PICKER, Johnston Primary Care Provider COURTNEY FLOWERS Attending Unavailable DARIN AISSATOU Primary Care Unavailable COURTNEY FLOWERS Referring Unavailable DENVER BYERS Attending Unavailable COURTNEY FLOWERS Referring Unavailable LORSON, [place] POINTE Primary Care Unavailable Lorson PERIPATOLOGIST-C, Johnston Primary Care Physician [phone] Keshawn Guzman Attending Physician Kim NARVAEZ, Dr. Barr Attending Physician Kevin NARVAEZ, Dr. Aneudy Beltran Attending Physician Lorson PERIPATOLOGIST-C, Johnston Referring Provider [phone] Marsha Celis Attending Physician [phone] Lorson PERIPATOLOGIST, Johnston Primary Care Unavailable Momo Alvarez Attending Unavailable Marsha Celis Referring Unavail able Margaritason PERIPATOLOGIST, [facility] Care Unavailable Aneudy Santiago Referring Unavailable Aneudy Santiago Attending Unavailable AikenLing Referring Unavailable AikenLing Attending Unavailable Lorson PERIPATOLOGIST, [facility] Care Unavailable Lorson PERIPATOLOGIST, [facility] Care Unavailable Christophe, Keshawn Referring Unavailable Momo Alvarez Attending Unavailable Drew Dickinson Attending Unavailable Demiter, Keshawn Referring Unavailable Lorson PERIPATOLOGIST, [facility] Care Unavailable Yoav Olivares Attending Unavailable Lorson PERIPATOLOGIST, Johnston Referring Unavailable Lorson PERIPATOLOGIST, [facility] Care Unavailable Jeffery Saeedyler Attending Unavailable Marsha Celis Attending Unavail able Lorson PERIPATOLOGIST, [facility] Care Unavailable Marsha Celis Referring Unavail able Lorson PERIPATOLOGIST, [facility] Care Unavailable Carly Adams Attending Unavailable Lorson PERIPATOLOGIST, [facility] Care Unavailable Marsha Celis Attending Unavail able Marsha Celis Referring Unavail able Lorson PERIPATOLOGIST, [facility] Care Unavailable Lorson PERIPATOLOGIST, Johnston Referring Unavailable Marsha Celis Attending Unavail able Christophe Keshawn Attending Unavailable Demiter, Keshawn Referring Unavailable Lorson PERIPATOLOGIST, [facility] Care Unavailable Marshall, Yoav Referring Unavailable Marshall Yoav Attending Unavailable Lorson PERIPATOLOGIST, [facility] Care Unavailable Marshall, Yoav Referring Unavailable Marshall, Yoav Attending Unavailable Lorson PERIPATOLOGIST, [facility] Care Unavailable Lorson PERIPATOLOGIST, [facility] Care Unavailable Demiter, Keshawn Attending Unavailable Demiter, Keshawn Referring Unavailable Lorson PERIPATOLOGIST, [facility] Care Unavailable Lorson PERIPATOLOGIST, Johnston Referring Unavailable Demiter, Keshawn Attending Unavailable Yoav Olivares Attending Unavailable Aissatou Webster NP Primary Care Unavailable Aissatou Webster NP Primary Care Unavailable Aissatou Webster NP Referring Unavailable Keshawn Saeed Attending Unavailable Aissatou Webster NP Referring Unavailable Aissatou Webster NP Primary Care Unavailable Marsha Celis Attending Unavail able Aissatou Webster NP Primary Care Unavailable Aissatou Webster NP Referring Unavailable Marsha Celis Attending Unavail able Medications Current Medications Medication Drug Class(es) Dates Sig (Normalized) Sig (Original) amiodarone hydrochloride 200 mg oral tablet (20 sources) Antiarrhythmic Start: 08-01-2024 End: 09-10-2024 take 1 tablet by mouth once daily Start: 07-10-2024 End: 08-01-2024 Amiodarone 200 mg [...] take 1 tablet by mouth once daily Start: 05-25-2024 End: 07-10-2024 take 1 tablet by mouth once daily Amlodipine 5 mg tablet Discontinued 5 mg PO DAILY 90 3 May 25, 2024 9:21am July 10, 2024 1:52pm Start: 08-25-2023 End: 05-25-2024 take 1 tablet by mouth once daily Amlodipine 10 mg tablet Discontinued 10 mg PO DAILY 90 3 August 25, 2023 10:45am May 25, 2024 9:23am Start: 04-25-2023 End: 08-25-2023 take 1 tablet by mouth once daily Amlodipine 5 mg tablet Discontinued 5 mg PO DAILY 30 April 25, 2023 1:00am August 25, 2023 10:46am benzonatate 200 mg oral capsule (1 source) Non-narcotic Antitussive Start: 09-29-2021 End: 10-04-2021 benzonatate 200 mg oral capsule Dose : 200 mg = 1 cap(s), Oral, TID, X 5 day(s), # 15 cap(s), 0 Refill(s), 10/04/21 14:34:00 EDT, Pharmacy: [facility] #[id number], 183, cm, 09/23/21 16:36:00 EDT, Height Start Date: 09/29/21 Stop Date: 10/04/21 Status: Ordered bicalutamide 50 mg oral tablet (11 sources) Androgen Receptor Inhibitor Start: 05-12-2022 take 50 mg by mouth once daily Bicalutamide Active 50 MG PO DAILY May 17, 2022 11:00pm cetirizine hydrochloride 10 mg oral tablet (20 sources) Histamine-1 Receptor Antagonist Start: 06-21-2024 take 1 tablet by mouth once daily as needed Start: 11-21-2023 take 1 mg by mouth [...] 2024 8:49am digoxin 0.125 mg oral tablet (8 sources) Cardiac Glycoside Start: 08-29-2024 take 1 tablet by mouth once daily dutasteride 0.5 mg oral capsule (4 sources) 5-alpha Reductase Inhibitor Start: 05-28-2013 take 1 capsule by mouth once daily Dutasteride (Avodart) 0.5 MG capsule Active 0.5 MG PO DAILY May 28, 2013 11:09am furosemide 40 mg oral tablet (20 sources) Loop Diuretic Start: 08-25-2023 Start: 09-03-2022 End: 02-02-2023 Furosemide 40 mg [...] 0 Refill(s) Start Date: 06/05/20 Status: Ordered lisinopril 10 mg oral tablet (20 sources) Angiotensin Converting Enzyme Inhibitor Start: 11-23-2024 take 1 tablet by mouth once daily Start: 04-25-2023 End: 08-25-2023 take 1 tablet by mouth twice daily Lisinopril 5 mg tablet Discontinued 5 mg PO TWICE A DAY 180 3 April 25, 2023 11:20am August 25, 2023 [...] 16, 2022 3:15pm July 29, 2022 4:02pm Lopressor 25mg--USE metoprolol tartrate 25 mg oral tablet (1 source) Start: 08-29-2023 Lopressor 25mg --USE metoprolol tartrate 25 mg oral tablet 0 [...] EACH PO DAILY June 23, 2015 12:00am MULTIVITAMIN ORAL (4 sources) take 1 tablet by mouth once daily MULTIVITAMIN ORAL Take 1 tablet by mouth once daily. Active Multivitamin preparation (1 source) Start: 03-11-2023 take 1 tablet by mouth once daily Multivitamin Dose = 1 tab(s), Oral, Daily, 0 Refill(s) Start Date: 03/11/23 Status: Ordered Multivitamin tablet (8 sources) Start: 08-25-2023 Start: 08-25-2023 Multivitamin t ablet Active 1 {tbl} PO DAILY August 25, 2023 12:00am Helena-3 Fatty Acids-Fish Oil (Fish Oil 1,000 Mg Capsule) 1 EACH capsule (4 sources) Start: 06-23-2015 Helena-3 Fatty Acids-Fish Oil (Fish Oil 1,000 Mg Capsule) 1 EACH capsule Active 1 EACH PO DAILY June 23, 2015 2:57pm Start: 06-23-2015 Helena-3 Fatty Acids-Fish Oil (Fish Oil 1,000 Mg Capsule) 1 EACH capsule Active 1 EACH PO DAILY June 23, 2015 12:00am 24 hr oxybutynin chloride 10 mg extended release oral tablet (13 sources) Cholinergic Muscarinic Antagonist Start: 11-25-2023 take 1 tablet by mouth once daily pantoprazole 20 mg delayed release oral tablet (1 source) Proton Pump Inhibitor Start: 11-23-2024 take 1 tablet by mouth once daily Sodium Chloride (1 source) Start: 11-21-2023 0.9% [...] mg tablet Discontinued 0 PO .COMPLEX 6 0 September 30, 2021 12:00am November 10, 2021 9:36am For 250 mg dose pack: take 500 mg today (day 1), then 250 mg for 4 days (days 2-5) PO calcium chloride 0.0014 meq/ml / potassium chloride 0.004 meq/ml / sodium chloride 0.103 meq/ml / sodium lactate 0.028 meq/ml injectable solution (1 source) Start: 11-07-2024 End: 11-07-2024 take 30 mL intravenously every hour 30 mL/hr, INTRAVENOUS, CONTINUOUS, Starting on Tue11/07/24 at 1200, Until Tue11/07/24 at 1355, Preprocedure ciprofloxacin 500 mg oral tablet (20 sources) Quinolone Antimicrobial Start: 12-18-2021 End: 06-02-2022 [...] 10:26am docusate sodium 100 mg oral capsule (20 sources) Start: 12-18-2021 End: 05-18-2022 take 1 [...] # 16 gram(s), 0 Refill(s), Pharmacy: [facility] [address] Sinusitis, 183, cm, 05/19/21 8:33:00 EDT, Height, kg, 05/19/21 8:33:00 EDT, Dosing Weight Start Date: 05/19/21 Stop Date: 06/18/21 Status: Ordered 0.375 ml leuprolide acetate 60 mg/ml prefilled syringe (13 sources) Gonadotropin Releasing Hormone Receptor Agonist Start: [...] 0 Refill(s) Start Date: 11/01/22 Status: Ordered Magnesium (17 sources) Start: 06-09-2022 End: 11-18-2022 Magnesium 200 [...] 12:00am megestrol acetate 20 mg oral tablet (12 sources) Progestin Start: 01-11-2023 End: 07-11-2023 take [...] (20 sources) beta-Adrenergic Hilary Start: 08-25-2023 End: 10-26-2024 take 1 tablet by mouth every twelve hours metoprolol tartrate, short acting, (LOPRESSOR) 25 mg tablet Take 1 tablet by mouth every 12 hours. 08/25/2023 10/26/2024 Discontinued Start: 08-25-2023 End: 06-25-2024 take 1 tablet [...] 50 mg PO TWICE A DAY 180 3 December 14, 2022 9:38am August 25, 2023 [...] Date Documented Da te Episodic/Chronic Administrative/social admission (18 sources) Patient encounter status; Translations: [Counseling, unspecified] 08-26-2022 Episodic Cancer of prostate (20 sources) Malignant tumor of prostate; Translations: [Malignant neoplasm of prostate] Onset: 5 12-18-2021 Chronic Cancer of prostate (4 sources) History of malignant neoplasm of prostate; Translations: [Personal history of malignant neoplasm of prostate] Onset: 5 10-31-2024 Episodic Cardiac dysrhythmias (20 sources) Ventricular premature beats; Translations: [Ventricular premature depolarization] Onset: Chronic Chronic kidney disease (5 sources) Chronic kidney disease stage 2; Translations: [Chronic kidney disease, stage 2 (mild)] Onset: 5 02-07-2023 Chronic Chronic obstructive pulmonary disease and bronchiectasis (1 source) Bronchitis 08-29-2023 Episodic Complications of surgical procedures or medical care (2 sources) Injection site disorder 11-01-2022 Episodic Conduction disorders (4 sources) Right bundle branch block; Translations: [Unspecified right bundle-branch block] Onset: 5 10-31-2024 Chronic Coronary atherosclerosis and other heart disease (4 sources) Coronary arteriosclerosis; Translations: [Atherosclerotic heart disease of agdaagux coronary artery without angina pectoris] Onset: 5 10-31-2024 Chronic Esophageal disorders (4 sources) Gastroesophageal reflux disease without esophagitis; Translations: [Gastro-esophageal reflux disease without esophagitis] Onset: 5 10-31-2024 Chronic Essential hypertension (20 sources) Essential hypertension; Translations: [Essential (primary) hypertension] Onset: Chronic Comment on above: RECENT INCREASE IN M ETOPROLOL Gastrointestinal hemorrhage (14 sources) Melena; Translations: [Gastrointestinal hemorrhage] Onset: 5 10-26-2024 Episodic Headache; including migraine (16 sources) Migraine; Translations: [Migraine, unspecified, not intractable, without status migrainosus] Onset: 5 03-11-2023 Chronic Heart valve disorders (20 sources) Mitral valve regurgitation; Translations: [Non-rheumatic mitral regurgitation ] Onset: 5 11-01-2022 Chronic Hyperplasia of prostate (2 sources) Benign prostatic hyperplasia; Translations: [Benign prostatic hyperplasia without lower urinary tract symptoms] Onset: 5 10-31-2024 Chronic Malaise and fatigue (15 sources) Fatigue; Translations: [Other fatigue] 08-27-2022 Episodic Other aftercare (20 sources) Long-term current use of 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; Translations: [terminal makeup operator (current) use of 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s] 08-27-2022 Episodic Other aftercare (11 sources) Drug therapy finding; Translations: [Other computer terminal operator (current) drug therapy] 08-01-2024 Episodic Other aftercare (1 source) Other computer terminal operator (current) drug therapy; Translations: [Other fpc (current) drug therapy] Onset: Episodic Other and unspecified benign neoplasm (9 sources) Polyp of colon 05-12-2022 Episodic Other and unspecified benign neoplasm (17 sources) Lipoma of skin and subcutaneous tissue of face; Translations: [Benign lipomatous neoplasm of skin and subcutaneous tissue of head, face and neck] 07-07-2022 Episodic Other and unspecified benign neoplasm (2 sources) Benign lipomatous neoplasm of skin and subcutaneous tissue of head, face and neck; Translations: [Lipoma of skin and subcutaneous tissue of face] 01-18-2023 Episodic Other circulatory disease (7 sources) H/O: atrial fibrillation; Translations: [Personal history of other diseases of the circulatory system] 06-21-2024 Episodic Other connective tissue disease (1 source) Musculoskeletal symptom; Translations: [Other symptoms and signs involving the musculoskeletal system] Episodic Other connective tissue disease (8 sources) Swelling of lower limb; Translations: [Other specified soft tissue disorders] 10-05-2023 Episodic Other gastrointestinal disorders (7 sources) Prostate mass 08-19-2021 Episodic Other gastrointestinal disorders (2 sources) Diarrhea, unspecified; Translations: [Diarrhea, unspecified] Onset: Episodic Other gastrointestinal disorders (4 sources) Heartburn; Translations: [Heartburn] 10-26-2024 Episodic Other gastrointestinal disorders (2 sources) Heartburn; Translations: [Heart burn] Onset: Episodic Other lower respiratory disease (5 sources) Postviral cough 02-03-2022 Episodic Other lower respiratory disease (5 sources) Tussive syncope 10-08-2021 Episodic Other lower respiratory disease (20 sources) Dyspnea on exertion; Translations: [Other forms of dyspnea] 08-27-2022 Episodic Other lower respiratory disease (2 sources) Dyspnea 11-01-2022 Episodic Other lower respiratory disease (1 source) Cough 08-29-2023 Episodic Other lower respiratory disease (2 sources) Other forms of dyspnea; Translations: [Other forms of dyspnea] Onset: Episodic Other non-traumatic joint disorders (4 sources) Hip pain 09-22-2022 Episodic Other non-traumatic joint disorders (1 source) Pain of left hip joint; Translations: [Pain in left hip] Episodic Other nutritional; endocrine; and metabolic disorders (8 sources) Body mass index 30+ - obesity; Translations: [Body mass index (BMI) 36.0-36.9, adult] Onset: 5 02-03-2022 Chronic Other nutritional; endocrine; and metabolic disorders (5 sources) Obesity 02-03-2022 Chronic Other nutritional; endocrine; and metabolic disorders (1 source) Body mass index (BMI) 36.0-36.9, adult; Translations: [BMI 36.0-36.9,adult] Onset: 5 Chronic Other skin disorders (11 sources) Lump on face; Translations: [Localized swelling, mass and lump, head] 01-18-2023 Episodic Other skin disorders (2 sources) Localized swelling, mass and lump, head; Translations: [Swelling, mass, or lump in head and neck] 01-18-2023 Episodic Residual codes; unclassified (12 sources) Hypersomnia; Translations: [Hypersomnia, unspecified] 11-18-2022 Chronic Residual codes; unclassified (1 source) Hypersomnia, unspecified; Translations: [Hypersomnia, unspecified] 11-18-2022 Chronic Residual codes; unclassified (15 sources) Obstructive sleep apnea syndrome; Translations: [Obstructive sleep apnea (adult) (pediatric)] Onset: 5 10-05-2023 Chronic Residual codes; unclassified (1 source) Obstructive sleep apnea (adult) (pediatric); Translations: [Obstructive sleep apnea (adult) (pediatric)] Onset: Chronic Screening and history of mental health and substance abuse codes (5 sources) Tobacco use and exposure - finding 02-03-2022 Chronic Unclassified (20 sources) Patient encounter status 06-05-2020 Unclassified (5 sources) Drug therapy finding 02-03-2022 Unclassified (1 source) Hypercoagulable state due to atrial fibrillation 08-29-2023 Unclassified (2 sources) Colonoscopy Sweater Operator Onset: 10-27-2024 Past or Other Problems Problem Classification Problem Date Documented Date Episodic/Chronic Cardiac dysrhythmias (8 sources) Bradycardia; Translations: [Bradycardia, unspecified] Onset: 06-25-2024 06-21-2024 Episodic Conditions associated with dizziness or vertigo (8 sources) Dizziness; Translations: [Dizziness and giddiness] Onset: 06-28-2024 06-21-2024 Episodic Other screening for suspected conditions (not mental disorders or infectious disease) (2 sources) Cardiac disease monitoring status; Translations: [Encounter for screening for cardiovascular disorders] Onset: 01-09-2024 Episodic Residual codes; unclassified (20 sources) History of cardiac catheterization; Translations: [Other specified postprocedural states] Onset: 04-07-2001 09-29-2021 Episodic Comment on above: Normal coronaries pe r cardiac cath [facility] Lopez [facility] 04/12/01 Residual codes; unclassified (1 source) Hormone sensitive malignancy status; Translations: [Hormone sensitive malignancy status] Onset: 07-10-2024 Episodic Results Test Name Value Interpretation Reference Range Facility Cardiology Visit Reporton Cardiology Visit Report [facility] [address] [place] [address] OFFICE VISIT Date of Service: 11/23/24 MR#: [id number] Acct: [id number] Name: RAMIRO LALA Rep #: [id number] : 1950 Provider: JAZMÍN Lam Age/Sex: 74/M Location: [facility] [place] Status: Signed HPI HPI History of Present [...] and then decrease to 100 mg daily. 48-hour Holter monitor done in August 2024 demonstrated sinus rhythm with first-degree AV block with paroxysmal atrial fibrillation/flutter and occasional PVCs. Atrial fibrillation burden decreased to 13.9%. He is now on amiodarone at 200 mg a day. He is still feeling palpitations. He thinks that he has the Atrial fib on/off t/o the day. He does feel SOB with his Afib. He does not have any chest pain. He does have issues with heartburn, he recently had an EGD. He is now on a PPI. BP has been running higher again. He finds that he does not want to exercise, he is more fatigued. He is using his CPAP. 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 Is patient in pain?: No Allergies No Known Allergies Allergy (Verified 11/23/24 08:55) Medications ???Medication ???Instructions ???Recorded ???Confirmed ???Type apixaban 5 mg tablet (Eliquis) 5 mg PO BID blood thinner #60 tabs 11/18/22 11/23/24 Rx furosemide 40 mg tablet 40 mg PO MOTUWETHFR 08/25/2311/23 History multivitamin 1 tab PO DAILY 08/25/23 11/23/24 H istory oxybutynin chloride 10 mg 10 mg PO QDAY 11/25/23 11/23/24 Hi story tablet,extended release 24 hr cetirizine 10 mg tablet (24Hour 10 mg PO DAILY PRN allergy symptom s 06/21/24 11/23/24 History Allergy) amlodipine 10 mg tablet 10 mg PO DAILY #90 tabs 07/10/24 0 11/23/24 Rx digoxin 125 mcg (0.125 mg) tablet 125 mcg PO QDAY #30 tabs 08/29/24 11/23/24 Rx amiodarone 200 mg tablet 200 mg PO QDAY #90 tabs 09/10/24 0 11/23/24 Rx lisinopril 10 mg tablet 10 mg PO QDAY #90 tabs 11/23/24 Rx pantoprazole 20 mg tablet,delayed 20 mg PO QDAY 11/23/24 11/23/24 H istory release Ejection fraction %: 60 Have you fallen [...] ROS Const Const: Negative for fatigue, weakness, heada (more content not included)... Normal [facility] ANES POSTPROC EVALon 025 ANES POSTPROC EVAL HNO ID: [id number] Author: DENVER BYERS MD Service: Anesthesiology Author Type: Physician Type: Anesthesia Postprocedure Evaluation Filed: 11/07/2024 14:46 Note Text: POST ANESTHESIA EVALUATION NOTE : 1950 Procedure Summary Date: 11/07/24 Room / Location: [facility] Endoscopy Anesthesia Start: 1314 Anesthesia Stop: 1355 Procedures: COLONOSCOPY DIAGNOSTIC EGD DIAGNOSTIC Diagnosis: BRBPR (bright red blood per rectum) Melena Heart burn (Heartburn) (Rectal bleeding) Scheduled Providers: Natasha Mccrary MD; Mare Verduzco APRN.KETTLEMAN; Denver Byers MD Responsible Provider: Denver Byers MD Anesthesia Type: MAC ASA Status: 3 Anesthesia Type: MAC Last Vitals Vitals Value Taken Time BP 135/63 11/07/24 14:26 Temp 11/07/24 14:46 Pulse 48 11/07/24 14:26 Resp 18 11/07/24 14:26 SpO2 97 % 11/07/24 14:26 Post Anesthesia Patient Status Patient Evaluation: PACU. PACU/ICU Patient Condition: stable. Anticipated Disposition: phase 2 then home. Neurological Status: aware and responsive. Pulmonary Status: breathing comfortably on room air Airway Control: returned to baseline unsupported. Cardiovascular Status: stable. Pain Management: clinically adequate - multimodal analgesia pain management approach Postoperative Hydration: acceptable. Intraoperative Events: no significant anesthesia events Recommendation: continue current plan of care. Anesthesia Observations No Documentation SIGNATURE: Denver Byers MD PATIENT NAME: Ramiro Lala DATE: November 07, 2024 TIME: 2:46 PM CSN: [id number] Normal [facility] ANES PRE-OPon 11-07-2024 ANES PRE-OP HNO ID: [id number] Author: DENVER BYERS MD Service: Anesthesiology Author Type: Physician Type: Anesthesia Preprocedure Evaluation Filed: 11/07/2024 12:12 Note Text: ANESTHESIOLOGY DAY OF SURGERY NOTE : 1950 Procedure Information Date/Time: 11/07/24 1330 Scheduled providers: Natasha Mccrary MD; Mare Verduzco APRN.KETTLEMAN; Denver Byers MD Procedures: COLONOSCOPY DIAGNOSTIC EGD DIAGNOSTIC Location: [facility] Endoscopy Estimated body mass index is 36.35 kg/m? as calculated from the following: Height as of this encounter: 182.9 cm (6'). Weight as of this encounter: 121.6 kg (268 lb). Most recent hematocrit and potassium results: No results found for this basename: HCT,HEMATOCRIT,K,POTAS SIUM Relevant Problems ANESTHESIA (+) Obstructive sleep apnea (adult) (pediatric) CARDIO (+) Atrial fibrillation (HCC) (+) CAD (coronary artery disease) (+) Essential hypertension (+) Migraines (+) Right bundle branch block GI (+) Gastroesophageal reflux disease without esophagitis -RENAL (+) Stage 2 chronic kidney disease NEURO-PSYCH (+) Migraines PULMONARY (+) Obstructive sleep apnea (adult) (pediatric) I - PHYSICAL EVALUATION AIRWAY Patient intubated: No. Tracheostomy tube not present Mallampati: IV. TM distance: >3 FB. Neck ROM: full ROM without neurological symptoms. Mouth opening: >3 FB. Short neck: no. Thick neck: no [place] present: yes DENTAL Normal dental observations. Dental findings: teeth intact. Additional exam findings: no II - ANESTHESIA PLAN ASA Score: 3 Anesthetic Plan: MAC NPO Status: adequate Monitoring Plan Monitoring plan: Standard ASA. Post Procedure Analgesic Plan Postoperative analgesic plan: parenteral or oral opioids and multimodal analgesia. Informed Consent Anesthetic risks, benefits, alternatives, personnel and consent discussed: yes. Patient / Responsible Libertarian agrees to proceed: yes Patient / Surrogate agrees to blood products: blood products not planned DNR status not reviewed with patient and/or family prior to surgery. Significant changes in the patient condition since the History and Physical, not otherwise documented in primary service progress note: no. Potential Anesthesia issues that may suggest increased risk of complications or contraindication to planned procedure: none. Vitals Value Taken Time BP 149/71 11/07/24 11:58 Pulse 69 11/07/24 11:58 Resp 16 11/07/24 11:58 Temp 36.6 ?C (97.9 ?F) 11/07/24 11:58 SpO2 95 % 11/07/24 11:58 Outpatient Medications as of 11/07/2024 Medication Sig amiodarone (PACERONE) 200 mg tablet Take 200 mg by mouth once daily. digoxin (LANOXIN) 125 mcg (0.125 mg) tablet Take 125 mcg by mouth once daily. oxybutynin ER (DITROPAN XL) 10 mg 24 hr tablet Take 10 mg by mouth once daily. amLODIPine (NORVASC) 10 mg tablet Take 1 tablet by mouth every afternoon. apixaban (ELIQUIS) 5 mg tab(s) Take 5 mg by mouth two times a day. Cetirizine (ZYRTEC) 10 mg cap Take 1 capsule by mouth as needed. furosemide (LASIX) 40 mg tablet Take 40 mg by mouth once daily. MULTIVITAMIN ORAL Take 1 tablet by mouth once daily. Facility-Administered Medications as of 11/07/2024 Medication Dose Route Frequency lidocaine (PF) 10 mg/mL (1 %) 1-2 mg injection (XYLOCAINE) 0.1-0.2 mL INTRADERMAL PRN lactated ringers iv infusion 30 mL/hr INTRAVENOUS CONTINUOUS I have interviewed and examined the patient. I have reviewed the medical record and/or the pre-anesthesia evaluation, pertinent labs, and test results. This contains updated information obtained within 48 hours of Surgery/Procedure. SIGNATURE: Denver Byers MD PATIENT NAME: Ramiro Lala DATE: November 07, 2024 TIME: 12:12 PM CSN: [id number] Normal [facility] Colonoscopyon 11-07-2024 Colonoscopy [facility] Gastrointestinal Endoscopy Patient Name: Ramiro Lala Procedure Date: 11/07/2024 1:09 PM Date of : 1950 Admit Type: Outpatient Age: 74 Room: [facility] Gender: Male Note Status: Finalized Attending MD: Natasha Mccrary MD, [id number] Procedure: Colonoscopy - diagnostic Indications: Rectal bleeding Providers: Natasha Mccrary MD Patient Profile: Refer to note in patient chart for documentation of history and physical. Last Colonoscopy: 2022. Referring Physician: Courtney Flowers (Referring MD) Medicines: See the Anesthesia note for documentation of the administered medications Complications: No immediate complications. Requesting Provider: Procedure: Pre-Anesthesia Assessment: - Monitored anesthesia care under the supervision of a KETTLEMAN was determined to be medically necessary for this procedure based on review of the patient's medical history, medications, and prior anesthesia history. After I obtained informed consent, the scope was passed under direct vision. Throughout the procedure, the patient's blood pressure, pulse, and oxygen saturations were monitored continuously. The Colonoscope was introduced through the anus and advanced to the cecum, identified by the appendiceal orifice, IC valve and transillumination. The colonoscopy was performed without difficulty. The patient tolerated the procedure well. The quality of the bowel preparation was adequate to identify polyps greater than 5 mm in size. The appendiceal orifice and the rectum were photographed. Scope Withdrawal Time: 0 hours 16 minutes 54 seconds Moderate Sedation: MAC anesthesia was administered by the anesthesia team. Total Procedure Duration: 0 hours 20 minutes 34 seconds Findings: The perianal and digital rectal examinations were normal. Non-bleeding internal hemorrhoids were found. A 7 to 10 mm polyp was found in the transverse colon. The polyp was sessile. The polyp was removed with a cold snare. Resection and retrieval were complete. Verification of patient identification for the specimen was done by the nurse. Estimated blood loss was minimal. A 1 to 2 mm polyp was found in the transverse colon. The polyp was sessile. The polyp was removed with a cold snare. Resection and retrieval were complete. Verification of patient identification for the specimen was done. Estimated blood loss was minimal. A 2 to 3 mm polyp was found in the rectum. The polyp was sessile. The polyp was removed with a cold snare. Resection and retrieval were complete. Verification of patient identification for the specimen was done by the nurse. Estimated blood loss was minimal. Impression: - Non-bleeding internal hemorrhoids. - One 7 to 10 mm polyp in the transverse colon, removed with a cold snare. Resected and retrieved. - One 1 to 2 mm polyp in the transverse colon, removed with a cold snare. Resected and retrieved. - One 2 to 3 mm polyp in the rectum, removed with a cold snare. Resected and retrieved. Recommendation: - Repeat colonoscopy date to be determined after pending pathology results are reviewed for surveillance. - - Follow up with Michelle Flowers NP, , may be via televisit for discussion of pathology results and determination of timing of future endoscopies - Patient has a contact number available for emergencies. The signs and symptoms of potential delayed complications were discussed with the patient. Return to normal activities tomorrow. Written discharge instructions were provided to the patient. - Continue present medications. - Resume previous diet. Procedure Code(s): --- Professional --- 66395, Colonoscopy, flexible; with removal of tumor(s), polyp(s), or other lesion(s) by snare technique Diagnosis Code(s): --- Professional --- K62.5, Hemorrhage of anus and rectum D12.8, Benign neoplasm of rectum D12.3, Benign neoplasm of transverse colon (hepatic flexure or splenic flexure) K64.8, Other hemorrhoids CPT copyright 2020 [employer]. All rights reserved. The codes documented in this report are preliminary and upon loans officer review may be revised to meet current compliance requirements. Attending Participation: I personally performed the entire procedure. Scope In: 1:31:12 PM Scope Out: 1:51:46 PM MD Natasha Duff MD 11/07/2024 1:56:40 PM This report has been signed electronically by Natasha Mccrary MD Number of Addenda: 0 Note Initiated On: 11/07/2024 1:09 PM Estimated Blood Loss: Estimated blood loss was minimal. Normal [facility] EGD Study observation Elton saldaña 11-07-2024 [facility] Gastrointestinal Endoscopy Patient Name: Ramiro Lala Procedure Date: 11/07/2024 1:09 PM Date of : 1950 Admit Type: Outpatient Age: 74 Room: [facility] Gender: Male Note Status: Finalized Attending MD: Natsaha Mccrary MD, [id number] Procedure: Colonoscopy - diagnostic Indications: Rectal bleeding Providers: Natasha Mccrary MD Patient Profile: Refer to note in patient chart for documentation of history and physical. Last Colonoscopy: 2022. Referring Physician: Courtney Flowers (Referring MD) Medicines: See the Anesthesia note for documentation of the administered medications Complications: No immediate complications. Requesting Provider: Procedure: Pre-Anesthesia Assessment: - Monitored anesthesia care under the supervision of a KETTLEMAN was determined to be medically necessary for this procedure based on review of the patient's medical history, medications, and prior anesthesia history. After I obtained informed consent, the scope was passed under direct vision. Throughout the procedure, the patient's blood pressure, pulse, and oxygen saturations were monitored continuously. The Colonoscope was introduced through the anus and advanced to the cecum, identified by the appendiceal orifice, IC valve and transillumination. The colonoscopy was performed without difficulty. The patient tolerated the procedure well. The quality of the bowel preparation was adequate to identify polyps greater than 5 mm in size. The appendiceal orifice and the rectum were photographed. Scope Withdrawal Time: 0 hours 16 minutes 54 seconds Moderate Sedation: MAC anesthesia was administered by the anesthesia team. Total Procedure Duration: 0 hours 20 minutes 34 seconds Findings: The perianal and digital rectal examinations were normal. Non-bleeding internal hemorrhoids were found. A 7 to 10 mm polyp was found in the transverse colon. The polyp was sessile. The polyp was removed with a cold snare. Resection and retrieval were complete. Verification of patient identification for the specimen was done by the nurse. Estimated blood loss was minimal. A 1 to 2 mm polyp was found in the transverse colon. The polyp was sessile. The polyp was removed with a cold snare. Resection and retrieval were complete. Verification of patient identification for the specimen was done. Estimated blood loss was minimal. A 2 to 3 mm polyp was found in the rectum. The polyp was sessile. The polyp was removed with a cold snare. Resection and retrieval were complete. Verification of patient identification for the specimen was done by the nurse. Estimated blood loss was minimal. Impression: - Non-bleeding internal hemorrhoids. - One 7 to 10 mm polyp in the transverse colon, removed with a cold snare. Resected and retrieved. - One 1 to 2 mm polyp in the transverse colon, removed with a cold snare. Resected and retrieved. - One 2 to 3 mm polyp in the rectum, removed with a cold snare. Resected and retrieved. Recommendation: - Repeat colonoscopy date to be determined after pending pathology results are reviewed for surveillance. - - Follow up with Michelle Flowers NP, , may be via televisit for discussion of pathology results and determination of timing of future endoscopies - Patient has a contact number available for emergencies. The signs and symptoms of potential delayed complications were discussed with the patient. Return to normal activities tomorrow. Written discharge instructions were provided to the patient. - Continue present medications. - Resume previous diet. Procedure Code(s): --- Professional --- 59572, Colonoscopy, flexible; with removal of tumor(s), polyp(s), or other lesion(s) by snare technique Diagnosis Code(s): --- Profes (more content not included)... PROVATION [facility] Radiology Study observation (narrative) [facility] Flexible sigmoidoscopy study on 11-07-2024 [facility] Gastrointestinal Endoscopy Patient Name: Ramiro Lala Procedure Date: 11/07/2024 1:10 PM Date of : 1950 Admit Type: Outpatient Age: 74 Room: [facility] Gender: Male Note Status: Finalized Attending MD: Natasha Mccrary MD, [id number] Procedure: Upper GI endoscopy Indications: Heartburn, Melena Providers: Natasha Mccrary MD Patient Profile: Refer to note in patient chart for documentation of history and physical. Referring Physician: Courtney Flowers (Referring MD) Medicines: See the Anesthesia note for documentation of the administered medications Complications: No immediate complications. Requesting Provider: Procedure: Pre-Anesthesia Assessment: - Monitored anesthesia care under the supervision of a KETTLEMAN was determined to be medically necessary for this procedure based on review of the patient's medical history, medications, and prior anesthesia history. After obtaining informed consent, the endoscope was passed under direct vision. Throughout the procedure, the patient's blood pressure, pulse, and oxygen saturations were monitored continuously. The Endoscope was introduced through the mouth, and advanced to the second part of duodenum. The upper GI endoscopy was accomplished without difficulty. The patient tolerated the procedure well. Moderate Sedation: MAC anesthesia was administered by the anesthesia team. Total Procedure Duration: 0 hours 5 minutes 24 seconds Findings: The duodenal bulb, first portion of the duodenum and second portion of the duodenum were normal. Localized mildly erythematous mucosa without bleeding was found in the gastric antrum. Retained bile in stomach - consistent with bile gastritis. Biopsies were taken with a cold forceps for Helicobacter pylori testing. Verification of patient identification for the specimen was done by the nurse. Estimated blood loss was minimal. The Z-line was irregular and was found 40 cm from the incisors. Biopsies were taken with a cold forceps for histology. Verification of patient identification for the specimen was done by the nurse. Estimated blood loss was minimal. Estimated blood loss was minimal. Impression: - Normal duodenal bulb, first portion of the duodenum and second portion of the duodenum. - Erythematous mucosa in the antrum. Biopsied. - Z-line irregular, 40 cm from the incisors. Biopsied. Recommendation: - Discharge patient to home (ambulatory). - Resume previous diet. - Continue present medications. - Await pathology results. - - Follow up with Michelle Flowers NP, , may be via televisit for discussion of pathology results and determination of timing of future endoscopies Procedure Code(s): --- Professional --- 73094, Esophagogastroduodenos copy, flexible, transoral; with biopsy, single or multiple Diagnosis Code(s): --- Professional --- K92.1, Melena (includes Hematochezia) R12, Heartburn K22.89, Other specified disease of esophagus K31.89, Other diseases of stomach and duodenum CPT copyright 2020 [employer]. All rights reserved. The codes documented in this report are preliminary and upon loans officer review may be revised to meet current compliance requirements. Attending Participation: I personally performed the entire procedure. Scope In: 1:20:55 PM Scope Out: 1:26:19 PM MD Natasha Duff MD 11/07/2024 1:29:28 PM This report has been signed electronically by Natasha Mccrary MD Number of Addenda: 0 Note Initiated On: 11/07/2024 1:10 PM Estimated Blood Loss: Estimated blood loss was minimal. PROVATION [facility] Radiology Study observation (narrative) [facility] Pathology biopsy report Jone (Tiss)on 11-07-2024 AP DISCLAIMER Normal [facility] Comment on above: Order Comment: Speci men Type: TISSUE SPECIMEN Ordering Facility: [facility] Address: [address] [place] [address] Result Comment: Stefania jeter Developed Test (LDT) Disclaimer: Performance characteristics of immunohistochemical, immunofluorescent, and chromogenic in-situ hybridization tests have been determined by the performing laboratory within the [facility] Department of Pathology and Laboratory Medicine ([facility], [facility], [facility], [facility], [facility], [facility], or [facility]) in a manner consistent with CLIA requirements. One or more of these tests may not have been cleared or approved by the FDA. The [facility] Department of Pathology and Laboratory Medicine is regulated under CLIA as qualified to perform high-complexity testing. These tests are used for clinical purposes. These should not be regarded as investigational or for research. Positive and negative controls stain appropriately. Performed By: #### 6 6121-5 #### [facility] CLIA [id number] [address] [place] [address] [place] CASE REPORT Normal [facility] Comment on above: Order Comment: Speci men Type: TISSUE SPECIMEN Ordering Facility: [facility] Address: [address] [place] [address] Result Comment: Surg ica Pathology Report Case: [id number] Authorizing Provider: Natasha Mccrary MD Collected: 11/07/2024 01:22 PM Ordering Location: [facility] Endoscopy Received: 11/07/2024 02:40 PM Pathologist: Carlos Suero MD Specimens: A) - Stomach, Antrum, Biopsy B) - Esophagogastric Junction, Biopsy C) - Colon, Transverse, Polyp, transverse colon polyp x 2 D) - Rectum, Polyp Performed By: #### 6 6121-5 #### [facility] CLIA [id number] [address] [place] [address] OF [place] DIAGNOSIS COMMENT A. Given the presenc e of chronic gastritis, an immunohistochemical stain for Helicobacter pylori organisms has been performed and is negative. [facility] Comment on above: Order Comment: Speci men Type: TISSUE SPECIMEN Ordering Facility: [facility] Address: [address] [place] [address] Performed By: #### 6 6121-5 #### [facility] CLIA [id number] [address] [place] [address] FINAL DIAGNOSIS [facility] Comment on above: Order Comment: Speci men Type: TISSUE SPECIMEN Ordering Facility: [facility] Address: [address] [place] [address] Result Comment: A. S tomach, biopsy: - Gastric antral-type mucosa with chronic inactive gastritis and reactive gastropathy-type changes (see comment). - Negative for intestinal metaplasia or dysplasia. B. Esophagogastric junction, biopsy: - Squamous mucosa showing histologic changes consistent with gastroesophageal reflux. - Scant superficial fragment of gastric-type mucosa with mild chronic inflammation. - Negative for intestinal metaplasia or dysplasia. C. Transverse colon polyps, biopsies: - Fragments of sessile serrated polyp. - Separate fragments of colonic mucosa with intramucosal lymphoid aggregates. D. Rectal polyp, biopsy: - Hyperplastic polyp. JEL 11/08/2024 at 1341 EDT Performed By: #### 6 6121-5 #### [facility] CLIA [id number] [address] [place] [address] OF [facility] FINAL PERFORMING LAB [facility] Comment on above: Order Comment: Speci men Type: TISSUE SPECIMEN Ordering Facility: [facility] Address: [address] [place] [address] Result Comment: Diag nostic interpretation performed at: [facility], [address] [place] [address] CLIA# [id number] Speech Language Pathology Assistant: Carlos Suero MD Performed By: #### 6 6121-5 #### [facility] IA [id number] [address] [place] [address] [place] GROSS DESCRIPTION Normal [facility] Comment on above: Order Comment: Speci men Type: TISSUE SPECIMEN Ordering Facility: [facility] Address: [address] [place] [address] Result Comment: A. S tomach, Antrum, Biopsy Received in formalin is one piece of stevens, soft tissue measuring 0.5 x 0.2 x 0.1 cm. Totally submitted in one cassette. B. Esophagogastric Junction, Biopsy Received in formalin are multiple pieces of pink-red, soft tissue aggregating to 0.8 x 0.3 x 0.2 cm. Totally submitted in one cassette. C. Colon, Transverse, Polyp Received in formalin is a pink polypoid segment of tissue measuring 0.7 x 0.6 x 0.3 cm. No stalk is noted. The apparent line of resection is noted. The specimen is bisected. Also received in the same container are multiple pieces of stevens, soft tissue aggregating to 0.8 x 0.3 x 0.1 cm. Totally submitted in one cassette. D. Rectum, Polyp Received in formalin is one piece of stevens, soft tissue measuring 0.5 x 0.3 x 0.3 cm. Totally submitted in one cassette. November 07, 2024 4:53 PM Gross examination performed at [facility], [address] [place] [address] Performed By: #### 6 6121-5 #### [facility] IA [id number] [address] [place] [address] [place] Upper GI endoscopyon 025 Upper GI endoscopy [facility] Gastrointestinal Endoscopy Patient Name: Ramiro Lala Procedure Date: 11/07/2024 1:10 PM Date of : 1950 Admit Type: Outpatient Age: 74 Room: [facility] Gender: Male Note Status: Finalized Attending MD: Natasha Mccrary MD, [id number] Procedure: Upper GI endoscopy Indications: Heartburn, Melena Providers: Natasha Mccrary MD Patient Profile: Refer to note in patient chart for documentation of history and physical. Referring Physician: Courtney Flowers (Referring MD) Medicines: See the Anesthesia note for documentation of the administered medications Complications: No immediate complications. Requesting Provider: Procedure: Pre-Anesthesia Assessment: - Monitored anesthesia care under the supervision of a KETTLEMAN was determined to be medically necessary for this procedure based on review of the patient's medical history, medications, and prior anesthesia history. After obtaining informed consent, the endoscope was passed under direct vision. Throughout the procedure, the patient's blood pressure, pulse, and oxygen saturations were monitored continuously. The Endoscope was introduced through the mouth, and advanced to the second part of duodenum. The upper GI endoscopy was accomplished without difficulty. The patient tolerated the procedure well. Moderate Sedation: MAC anesthesia was administered by the anesthesia team. Total Procedure Duration: 0 hours 5 minutes 24 seconds Findings: The duodenal bulb, first portion of the duodenum and second portion of the duodenum were normal. Localized mildly erythematous mucosa without bleeding was found in the gastric antrum. Retained bile in stomach - consistent with bile gastritis. Biopsies were taken with a cold forceps for Helicobacter pylori testing. Verification of patient identification for the specimen was done by the nurse. Estimated blood loss was minimal. The Z-line was irregular and was found 40 cm from the incisors. Biopsies were taken with a cold forceps for histology. Verification of patient identification for the specimen was done by the nurse. Estimated blood loss was minimal. Estimated blood loss was minimal. Impression: - Normal duodenal bulb, first portion of the duodenum and second portion of the duodenum. - Erythematous mucosa in the antrum. Biopsied. - Z-line irregular, 40 cm from the incisors. Biopsied. Recommendation: - Discharge patient to home (ambulatory). - Resume previous diet. - Continue present medications. - Await pathology results. - - Follow up with Michelle Flowers NP, , may be via televisit for discussion of pathology results and determination of timing of future endoscopies Procedure Code(s): --- Professional --- 10512, Esophagogastroduodenos copy, flexible, transoral; with biopsy, single or multiple Diagnosis Code(s): --- Professional --- K92.1, Melena (includes Hematochezia) R12, Heartburn K22.89, Other specified disease of esophagus K31.89, Other diseases of stomach and duodenum CPT copyright 2020 [employer]. All rights reserved. The codes documented in this report are preliminary and upon loans officer review may be revised to meet current compliance requirements. Attending Participation: I personally performed the entire procedure. Scope In: 1:20:55 PM Scope Out: 1:26:19 PM MD Natasha Duff MD 11/07/2024 1:29:28 PM This report has been signed electronically by Natasha Mccrary MD Number of Addenda: 0 Note Initiated On: 11/07/2024 1:10 PM Estimated Blood Loss: Estimated blood loss was minimal. Normal [facility] HISTORY PHYSICALon HISTORY PHYSICAL HNO ID: [id number] Author: EUGENIE VELEZ APRN.SISAL PICKER Service: ? Author Type: Nurse Practitioner Type: H&P Filed: 10/31/2024 08:58 Note Text: [facility] HISTORY AND PHYSICAL EXAMINATION SERVICE DATE: 10/31/2024 SERVICE TIME: 8:58 AM PRIMARY CARE PHYSICIAN: Aissatou Webster APRN.SISAL PICKER Assessment Patient has the following medical conditions which may affect vicky-operative course: 1. Migraine without status migrainosus, not intractable, unspecified migraine type (G43.909) - Frequent migraines with visual aura; most recent episode on Tuesday. - Advised to avoid known triggers, including dark chocolate. 2. History of prostate cancer (Z85.46) - Completed 34 sessions of radiation therapy one year ago; in remission for one year. - S/p prostatectomy 3. BMI 36.0-36.9,adult (Z68.36) - Body mass index is 36.35 kg/m?. 4. Obstructive sleep apnea (adult) (pediatric) (G47.33) - Continues to use CPAP. 5. Atrial fibrillation, unspecified type (HCC) (I48.91) 6. Essential hypertension (I10) 7. Right bundle branch block (I45.10) 8. Coronary artery disease involving agdaagux coronary artery of agdaagux heart without angina pectoris (I25.10) - Paroxysmal atrial fibrillation, symptomatic approximately 52% of the time, with episodes lasting up to half a day and causing significant dyspnea and activity limitation. - On Eliquis; instructed to hold Eliquis for 48 hours prior to upcoming procedure. - History of right bundle branch block on prior EKG. - Mild coronary artery disease; left heart catheterization on 09/28/2021 showed no significant disease. - Follow-up with cardiology nurse practitioner next month - sees [facility]. 9. Gastroesophageal reflux disease without esophagitis (K21.9) - Recent episode of acid reflux approximately 10 days ago, coinciding with hematochezia. - Advised to monitor dietary triggers. 10. Stage 2 chronic kidney disease (N18.2) - Mild, stable; recent labs reviewed by GA last Tuesday showed normal hemoglobin. ANESTHESIA FINDINGS: Intubation History: No history of difficult intubation. No abnormal airway history Significant Anesthesia Considerations: none Airway History: No history of difficult airway No abnormal airway history Mcbride Activity Status Index: METS: Walk indoors, such as around the house (1.75 METs) Do light work around the house, such as dusting or washing dishes (2.70 METs) Take care of self; that is eating, dressing, bathing, using the toilet (2.75 METs) Walk a block or two on level ground (2.75 METs) Do moderate work around the house, such as vacuuming, sweeping floors, or carrying in groceries (3.50 METs) Do yardwork, such as raking leaves, weeding, or pushing a power mower (4.50 METs) Climb a flight of stairs or walk up a hill (5.50 METs) Participate in moderate recreational activites, such as golf, bowling, dancing, doubles tennis, or throwing a baseball or football (6.00 METs) DASI Score: 29.45 Patient denies any chest pain or undue shortness of breath with the above physical activity. Clinical Frailty Scale: 3. Well, with treated comorbid disease STOP-Bang Score: STOP-Bang Score: (+ ernesto on cpap) [id number] Score: Age: >=75 Sex: male CHF history: No Hypertension history: Yes Stroke/TIA/thromboembo lism history: No Vascular disease history: No Diabetes history: No [id number] Score: 3 I - PHYSICAL EVALUATION AIRWAY Patient intubated: No. Tracheostomy tube not present Mallampati: II. TM distance: >3 FB. Neck ROM: full ROM without neurological symptoms. Mouth openin FB. Short neck: no. Thick neck: no [place] present: yes DENTAL Dental findings: missing tooth/teeth. II - ANESTHESIA PLAN Anesthetic plan additional comments: *PACC/TCI - anesthesia choice. Informed Consent Prepared for Surgery: optimally prepared for surgery, pending [see comment]. Per PACC guidelines, patient may hold Eliquis 2 days prior to procedure. CONSULTS: Patient does not require consults for optimization at this time Planned Anesthetic: anesthesia choice The Following Tests/Procedures Have Been Initiated: No orders of the defined types were placed in this encounter. REASON FOR VISIT: Ramiro Lala is a 74 year old male who is scheduled for * No surgery found * at the request of Dr. Courtney Flowers for consultation. My final recommendation will be communicated back to the requesting physician by way of shared medical record or letter. Subjective The patient has the following: COVID-19 Immunization Status This patient has no relevant Health Maintenance data. CHIEF COMPLAINT: pre op HPI: Ramiro Lala is a 74-year-old male with a history of prostate cancer, atrial fibrillation (AFib), and migraines, presenting for evaluation prior to an upcoming EGD and colonoscopy. Ramiro reports hematochezia, with both dark and bright red (more content not included)... Normal [facility] CNOVon 10-26-2024 CNOV Office Visit (GENSWS ) RAMIRO LALA ([id number]) 1950 M Date Time Provider Department 10/26/24 11:30 AM COURTNEY FLOWERS During your visit today, we recorded the following information about you: Pulse Respiration Blood pressure Weight 77/minute 14/minute 136/75 122.4 kg Courtney Flowers APRN.SISAL PICKER 10/26/2024 11:10 AM Signed HISTORY AND PHYSICAL Ramiro Lala : 1950 REFERRING PHYSICIAN: ABDIRAHMAN BOURGEOIS [facility] [place] CHIEF COMPLAINT: Patient presents with: Rectal Bleeding: Rectal bleeding HPI: Ramiro is a 74 year old male referred for endoscopy. Ramiro notes blood in stool-hx of polyps. +iFOBT Ramiro denies abdominal pain. Ramiro denies diarrhea. Ramiro denies constipation. Ramiro denies a change in bowel habits. Ramiro notes melena. -last 10 days Ramiro notes bright red blood per rectum. Ramiro notes hemorrhoids. Ramiro denies family history of colon issues. Ramiro notes heartburn. -for the last 10 days -after heavy meal in the afternoon Ramiro denies dysphagia. Ramiro denies a history of ulcers/ peptic ulcer disease. Ramiro has a hx of A.Fib AND HTN, he follows with [facility]. Last OV 07/2024- on eliquis AND amiodarone AND digoxin. He denies CP, +SOB, dizziness, +palpitations, syncope, edema, recent hospitalizations -PFTS completed 09/25/24 showed small airway dx with significant bronchodilator response. Ramiro has a hx of prostate cancer with radiation (2021). Ramiro has undergone prior endoscopy. Last colonoscopy was 05/2022- [facility] -no polyps -previous to this colonoscopy, polyps every time Current Outpatient Medications Medication Sig digoxin (LANOXIN) 125 mcg (0.125 mg) tablet Take 125 mcg by mouth once daily. oxybutynin ER (DITROPAN XL) 10 mg 24 hr tablet Take 10 mg by mouth once daily. amLODIPine (NORVASC) 10 mg tablet Take 1 tablet by mouth every afternoon. apixaban (ELIQUIS) 5 mg tab(s) Take 5 mg by mouth two times a day. Cetirizine (ZYRTEC) 10 mg cap Take 1 capsule by mouth as needed. furosemide (LASIX) 40 mg tablet Take 40 mg by mouth once daily. MULTIVITAMIN ORAL Take 1 tablet by mouth once daily. No current facility-administered medications for this visit. ALLERGIES: Patient has no known allergies. PAST MEDICAL HISTORY Diagnosis Date Adenocarcinoma (HCC) Atrial fibrillation (HCC) BPH with obstruction/lower urinary tract symptoms Essential hypertension Nonrheumatic mitral valve insufficiency Prostate disease Prostate enlargement SOBOE (shortness of breath on exertion) Syncope PAST SURGICAL HISTORY Procedure Laterality Date COLONOSCOPY 03/07/2007 NEEDS ONE EVERY 3 YEARS CYSTOSCOPY HEART CATHETERIZATION Left 04/12/2001 LAP UMBILICAL HERNIA REPAIR PAST SURGICAL HISTORY OF FATTY TUMOR REMOVED. PAST SURGICAL HISTORY OF LEFT HAND ACCIDENT, INJECTED WITH HYDRAULIC OIL. RADICAL PROSTATECTOMY REMOVE CATARACT, INSERT LENS, INTRACAPSUL TONSILLECTOMY AND ADENOIDECTOMY HX VASECTOMY FAMILY HISTORY Problem Relation Age of Onset Cancer Mother Breast Cancer Mother Hypertension Mother Cancer Father Prostate Cancer Father Hypertension Father Colon Cancer Brother SOCIAL HISTORY[1] REVIEW OF SYMPTOMS: REVIEW OF SYSTEMS: General: The patient denies fatigue, denies weight loss, denies weight gain, denies feeling hot, and feelings of cold. Eyes: The patient denies glaucoma, denies eye injury/surgery, denies glasses or contacts. Ear/Nose/Throat: The patient denies allergies, denies hayfever, denies ear infections, and denies bloody noses. Cardiovascular: The patient denies chest pain, denies heart disease, + high blood pressure, denies high cholesterol, and denies poor circulation. Respiratory: The patient denies tuberculosis, denies pneumonia, denies frequent cough, + shortness of breath, and denies coughing up blood. Gastrointestinal: The patient denies difficulty swallowing, denies acid reflux, denies ulcers, denies jaundice/hepatitis, denies gallbladder problems, denies vomiting, denies black or tarry stools, + hemorrhoids, + bleeding from rectum, denies diverticulitis, denies constipation, denies diarrhea, denies loss of stool control, and denies hernias. Kidney/Bladder: The patient denies kidney stones, denies urine infections, and denies bloody urine. Skin: The patient denies a history of skin cancer, denies bleeding/changing moles, and denies a history of skin rash. Neurologic: The patient denies a history of epilepsy/convulsions, denies headaches, denies head/spinal injuries, and denies stroke/TIA. Psychiatric: The patient denies psychiatric medications, denies depression, and denies voices. Endocrine: The patient denies thyroid disorders, denies diabetes, and denies hormonal problems. Hematologic: The patient denies a history of bruising (more content not included)... Normal [facility] 10-26-2024 JANETTE Telephone ([facility]) DAIRAMIRO ([id number]) 1950 M Date Time Provider Department 10/26/24 DENA WHIPPLE [facility] During your visit today, we recorded the following information about you: Dena Whipple, RN 10/26/2024 12:38 PM Signed RE:Amrit, 11/07/24 [facility] RN, Please address Eliquis Hold for upcoming procedure. Noted in 10/26/24 OV with GS to Hold for 48 hrs. Thanks, Edna Kay RN, RN 10/30/2024 7:42 AM Addendum Patient has been identified by name and date of : Yes Spiritual Advisor is Dr. Momo Alvarez/ Keshawn NOYOLA and Eliquis managed by cannon fire direction specialist for history of atrial fibrillation. Patient was instructed by surgeon's office to hold Eliquis 48 hours prior to surgery. Letter sent to cannon fire direction specialist asking if okay to hold Eliquis 2 days prior to procedure- EGD/Colonoscopy on 11/07/2024. Edna Horton RN October 26, 2024 2:15 PM Addendum: Called cardiology office AND spoke with Keshawn NOYOLA and verbal order received-"yes, can hold Eliquis 48 hours prior to procedure." Office staff to fax letter reply~External Cardiology - Clearance (10/29/2024) Edna Horton RN October 29, 2024 10:03 AM Allergies As of Date: 10/26/2024 (No Known Allergies) Date Reviewed: 10/26/2024 Reviewed by: Courtney Flowers APRN.SISAL PICKER - Fully Assessed Reason for Visit: Preparations For Surgery [898] Prescriptions as of 10/30/2024 - digoxin (LANOXIN) 125 mcg (0.125 mg) tablet Take 125 mcg by mouth once daily. - oxybutynin ER (DITROPAN XL) 10 mg 24 hr tablet Take 10 mg by mouth once daily. - amLODIPine (NORVASC) 10 mg tablet Take 1 tablet by mouth every afternoon. - apixaban (ELIQUIS) 5 mg tab(s) Take 5 mg by mouth two times a day. - Cetirizine (ZYRTEC) 10 mg cap Take 1 capsule by mouth as needed. - furosemide (LASIX) 40 mg tablet Take 40 mg by mouth once daily. - MULTIVITAMIN ORAL Take 1 tablet by mouth once daily. Problem List As Of Date: 10/26/2024 (None) Letter Text Encounter Status:Closed by DENA WHIPPLE on 10/26/24 Normal [facility] PSA,Total- Diagnosticon 10-05 PSA, DIAGNOSTIC < 0.02 Normal 0.00-4.00 [facility] Comment on above: Result Comment: This [...] confirm baseline values. Performed By: #### L 501.9924 #### [facility] [address] [place], [address] Bilirubin directOrdered By: Keshawn Saeed on 09-21-2024 Bilirubin.direct [Mass/Vol] 0.16 mg/dL 0.00-0.30 [facility] Bilirubin, totalOrdered By: Keshawn Saeed on 09-21-2024 Bilirubin [Mass/Vol] 0.42 mg/dL 0.00-1.[address] [facility] - Chemistry and C hemistry - challengeOrdered By: Keshawn Saeed on 09-21-2024 AST [Catalytic activity/Vol] 27 U/L <38 [facility] Liver Profileon 09-21-2024 Albumin [Mass/Vol] 4.5 g/dL Normal 3.4-4.8 [facility] Comment on above: Performed By: #### L 501.9520, L500.3400 #### [facility] [address] [place], [address] ALK PHOS 94 U/L Normal 40-129 [facility] Comment on above: Performed By: #### L 501.9520, L500.3400 #### [facility] [address] [place], [address] ALT [Catalytic activity/Vol] 29 U/L Normal <=46 [facility] Comment on above: Performed By: #### L 501.9520, L500.3400 #### [facility] [address] [place], [address] AST [Catalytic activity/Vol] 27 U/L Normal <=37 [facility] Comment on above: Performed By: #### L 501.9520, L500.3400 #### [facility] [address] [place], [address] Bilirubin [Mass/Vol] 0.42 mg/dL Normal 0.00-1.[address] [facility] Comment on above: Performed By: #### L 501.9520, L500.3400 #### [facility] [address] [place], [address] Bilirubin.direct [Mass/Vol] 0.16 mg/dL Normal 0.00-0.30 [facility] Comment on above: Performed By: #### L 501.9520, L500.3400 #### [facility] [address] [place], [address] Globulin (S) [Mass/Vol] 2.9 g/dL Normal 2.2-4.2 [facility] Comment on above: Performed By: #### L 501.9520, L500.3400 #### [facility] [address] [place], [address] T PROT 7.4 g/dL Normal 5.9-8.4 [facility] Comment on above: Performed By: #### L 501.9520, L500.3400 #### [facility] [address] [place], [place], [id number] Serum globulin measurementOr dered By: Keshawn Saeed on 09-21-2024 Globulin (S) [Mass/Vol] 2.9 g/dL 2.2-4.2 [facility] Serum or plasma alanine pereira otransferase (ALT) measurementOrdered By: Keshawn Saeed on 09-21-2024 ALT [Catalytic activity/Vol] 29 U/L <47 [facility] Serum or plasma albumin elio urement (mass/volume)Ordered By: Keshawn Saeed on 09-21-2024 Albumin [Mass/Vol] 4.5 g/dL 3.4-4.8 [facility] Serum or plasma alkaline bejnamin sphatase measurementOrdered By: Keshawn Saeed on 09-21-2024 ALP [Catalytic activity/Vol] 94 U/L 40-129 [facility] TSH DL <= 0.005 mIU/L QnOrde red By: Keshawn Saeed on 09-21-2024 TSH Qn 1.400 uIU/mL 0.300-4.200 [facility] Thyroid Stim Hormone (TSH)on 09-21-2024 TSH 1.400 uIU/mL Normal 0.300-4.200 [facility] Comment on above: Performed By: #### L 501.9520, L500.3400 #### [facility] [address] [place], [place], [address] Total proteinOrdered By: Kip Saeed on 09-21-2024 Protein [Mass/Vol] 7.4 g/dL 5.9-8.4 [facility] Cardiology Visit Reporton Cardiology Visit Report [facility] [address] [place], [place] [address] OFFICE VISIT Date of Service: 08/01/24 MR#: [id number] Acct: [id number] Name: RAMIRO LALA Rep #: [id number] : 1950 Provider: JAZMÍN Sepulveda Age/Sex: 74/M Location: [facility] [place] Status: Signed HPI HPI History of Present [...] Intake Visit Reasons: 1 M FU/Needs EKG Bus Analyst Required: No Is patient in pain?: No [...] ROS Co (more content not included)... Normal [facility] 12 Lead EKG performed by [facility] [place] on 07-10-2024 12 Lead EKG performed by [facility] [address] [place] [address] 12 Lead EKG performed by [facility] 07/10/24 112 MR#: [id number] Acct: [id number] Name: RAMIRO LALA Rep #: [id number] : 1950 74 From: Keshawn NOYOLA Attending Dr: JAZMÍN Sepulveda Status: DEP AM B Ordering Dr: Keshawn Saeed Date: 07/10/24 Location: [facility] [place] Sex: M C Admitted: [facility] [place]/12 Lead EKG performed by [facility] [place] ECG Report Interpretation ----Atrial flutter-fibrillation - occasional ectopic ventricular beat -RSR(V1) -nondiagnostic. -Nonspecific ST depression + Nonspecific T-abnormality -Nondiagnostic. ABNORMAL Electronically signed on 07/17/2024 at 08:09 by Momo [employer]varez[employer] Version [id number] 07/17/24 0811 Date Keshawn NOYOLA CC: DAVID Webster Date Dictated: 07/10/241126 Date Transcribed: 07/10/241126 Meter Reader Chief: RUBIO Signed Normal [facility] Cardiology Visit Reporton Cardiology Visit Report [facility] [address] [place] [address] OFFICE VISIT Date of Service: 07/10/24 MR#: [id number] Acct: [id number] Name: RAMIRO LALA Rep #: [id number] : 1950 Provider: JAZMÍN Sepulveda Age/Sex: 74/M Location: [facility] [place] Status: Signed HPI HPI History of Present [...] reports noticing weakness that is described as " it takes an effort to do things" that he used to be able to [...] air Intake Visit Reasons: Medication Changes/See Note Bus Analyst Required: No Is patient in pain?: No [...] current a (more content not included)... Normal [facility] Radiation Oncology Visiton 0 07-10-2024 Radiation Oncology Visit [facility] [place] [facility] [address] [place] [address] OFFICE VISIT Date of Service: 07/10/24 1405 MR#: [id number] Acct: [id number] Name: RAMIRO LALA Rep #: [id number] : 1950 From: Yoav Olivares DO Age/Sex: 74/M Location: [facility] Status: Signed Intake Vital Signs 01/09/24 09:30 [...] lobulated appearance (more content not included)... Normal [facility] PSA,Total- Diagnosticon 05-0 PSA, DIAGNOSTIC < 0.02 Normal 0.00-4.00 [facility] Comment on above: Result Comment: This [...] values. Performed By: #### L 501.9940 #### [facility] [address] [place], [address] 12 Lead EKG performed by [facility] [place] on 06-25-2024 12 Lead EKG performed by [facility] [address] [place] [address] 12 Lead EKG performed by [facility] [place] 06/25/24 1028 MR#: [id number] Acct: [id number] Name: RAMIRO LALANE Rep #: [id number] : 1950 74 From: Marsha Cox Attending Dr: JAZMÍN Mosley Status: DEP AMB Ordering Dr: Marsha Kerr Date: 06/06 03/31 Location: [facility] [place] Sex: M C Admitted: BMS/12 Lead EKG performed by [facility] [place] ECG Report Interpretation ----Sinus Bradycardia -First degree A-V block Jessica = 234-RSR(V1) -nondiagnostic. -Left atrial enlargement. - Nonspecific T-abnormality. ABNORMAL Electronically signed on 06/27/2024 at 16:24 by Momo Alvarez [employer] Version [id number] 06/27/24 1630 Date Marsha NOYOLA CC: DAVID Webster Date Dictated: 06/25/24 1028 Date Transcribed: 06/25/24 1028 Meter Reader Chief: TELMA Signed Normal [facility] 12 Lead EKGon 06-21-[address] [facility] [address] [place] [address] 12 Lead EKG 06/21/24 0930 MR#: [id number] Acct: [id number] Name: RAMIRO LALA Rep #: [id number] : 1950 74 From: Nader Do MD [...] block Borderline ECG Confirmed by Nader Do ([id number]), international editorial producer YVES NELSON ([id number]) on 06/22/2024 12:46:00 PM Referred By: Confirmed By: Nader Do 06/22/24 1246 Date Nader Do MD CC: DAVID Webster; Dr. Carly Adams, DO Signed Normal [facility] Absolute lymphocyte countOrd ered By: Carly Adams on 06-21-2024 Lymphocytes Auto (Unsp spec) [#/Vol] 1.74 10*3/uL 0.83-4.51 [facility] Absolute neutrophil countOrd ered By: Carly Adams on 06-21-2024 Neutrophils (Bld) [#/Vol] 3.4 10*3/uL 2.0-7.7 [facility] Anion gap in Serum or Plasma Ordered By: Carly Adams on 06-21-2024 Anion gap [Moles/Vol] 12 mmol/L 5-15 [facility] Automated lymphocyte count a s percentage of total leukocytesOrdered By: Carly Adams on 06-21-2024 Lymphocytes/100 WBC Auto (Unsp spec) 27.9 % 19-41 [facility] BUN/creatinine ratioOrdered By: Carly Adams on 06-21-2024 Urea nitrogen/Creatinine [Mass ratio] 16.2 mg/mg 10- [facility] Basic Metabolic Profile (BMP )on 06-21-2024 BUN/CRE 16.2 RATIO Normal - [facility] Comment on above: Performed By: #### L 501.9940 #### [facility] [address] [place], [address] Calcium [Mass/Vol] 9.2 mg/dL Normal 7.6-11.0 [facility] Comment on above: Performed By: #### L 501.9940 #### [facility] [address] [place], [address] Chloride [Moles/Vol] 101 mmol/L Normal 98-[address] [facility] Comment on above: Performed By: #### L 501.9940 #### [facility] [address] [place], [address] CO2 [Moles/Vol] 22.7 mmol/L Normal 21.0-32.0 [facility] Comment on above: Performed By: #### L 501.9940 #### [facility] [address] [place], [address] Creatinine [Mass/Vol] 0.98 mg/dL Normal 0.70-1.20 [facility] Comment on above: Performed By: #### L 501.9940 #### [facility] [address] [place], [address] ECRCL 87.64 ml/min Normal 50-250 [facility] Comment on above: Performed By: #### L 501.9940 #### [facility] [address] [place], [address] GAP 12 Normal 5-15 [facility] Comment on above: Performed By: #### L 501.9940 #### [facility] [address] [place], [address] GFR/1.73 sq M.predicted among non-blacks MDRD (S/P/Bld) [Vol rate/Area] 81 mL/min/{1.73_m2} Normal >60 [facility] Comment on above: Result Comment: mL/m in/1.73m2 CKD-EPI Creatinine Equation (2020) Performed By: #### L 501.9940 #### [facility] [address] [place], [address] Glucose [Mass/Vol] 95 mg/dL Normal 70-99 [facility] Comment on above: Performed By: #### L [id number] #### [facility] [address] [place], [address] Potassium [Moles/Vol] 4.2 mmol/L Normal 3.3-5.1 [facility] Comment on above: Performed By: #### L [id number] #### [facility] [address] [place], [address] Sodium [Moles/Vol] 136 mmol/L Normal 133-145 [facility] Comment on above: Performed By: #### L [id number] #### [facility] [address] [place], [address] Urea nitrogen [Mass/Vol] 16 mg/dL Normal 4-19 [facility] Comment on above: Performed By: #### L [id number] #### [facility] [address] [place], [address] Basophil percentageOrdered B y: Jamius Adams on 06-21-2024 Basophils/100 WBC (Bld) 1.0 % 0-1 [facility] CBC W/Diff, Automatedon 06-05 Absolute Lymph 1.74 X10 3/uL Normal 0.83-4.51 [facility] Comment on above: Performed By: #### L [id number] #### [facility] [address] [place], [address] Absolute Neut 3.4 X10 3/uL Normal 2.0-7.7 [facility] Comment on above: Performed By: #### L [id number] #### [facility] [address] [place], [address] Basophils/100 WBC (Bld) 1.0 % Normal 0-1 [facility] Comment on above: Performed By: #### L [id number] #### [facility] [address] [place], [address] Eosinophils/100 WBC (Bld) 3.2 % Normal 0-5 [facility] Comment on above: Performed By: #### L [id number] #### [facility] [address] [place], [address] Erythrocyte distribution width (RBC) [Ratio] 13.7 % Normal 11.6-14.6 [facility] Comment on above: Performed By: #### L [id number] #### [facility] [address] [place], [address] Hematocrit (Bld) [Volume fraction] 43.7 % Normal 40-54 [facility] Comment on above: Performed By: #### L [id number] #### [facility] [address] [place], [address] Hemoglobin (Bld) [Mass/Vol] 14.6 g/dL Normal 13.0-16.5 [facility] Comment on above: Performed By: #### L [id number] #### [facility] [address] [place], [address] IG% 0.500 Normal 0.0-0.9 [facility] Comment on above: Result Comment: IG% - Immature Granulocytes (promyelocytes, myelocytes and metamyelocytes) > 1% indicates that a LEFT SHIFT is Present. Performed By: #### L [id number] #### [facility] [address] [place], [address] Lymphocytes/100 WBC (Bld) 27.9 % Normal 19-41 [facility] Comment on above: Performed By: #### L [id number] #### [facility] [address] [place], [address] MCH (RBC) [Entitic mass] 28.3 pg Normal 27.0-32.0 [facility] Comment on above: Performed By: #### L [id number] #### [facility] [address] [place], [address] MCHC (RBC) [Mass/Vol] 33.4 g/dL Normal 32-36 [facility] Comment on above: Performed By: #### L [id number] #### [facility] [address] [place], [address] MCV (RBC) [Entitic vol] 84.7 fL Normal 80-94 [facility] Comment on above: Performed By: #### L [id number] #### [facility] [address] [place], [address] Monocytes/100 WBC (Bld) 12.7 % High 0-10 [facility] Comment on above: Performed By: #### L [id number] #### [facility] [address] [place], [address] Neutrophils/100 WBC (Bld) 54.7 % Normal 47-70 [facility] Comment on above: Performed By: #### L [id number] #### [facility] [address] [place], [address] Nucleated RBC (Bld) [#/Vol] 0 10*3/uL Normal 0-5 [facility] Comment on above: Performed By: #### L [id number] #### [facility] [address] [place], [address] Platelet mean volume (Bld) [Entitic vol] 12.1 fL High 6.2-12.0 [facility] Comment on above: Performed By: #### L [id number] #### [facility] [address] [place], [address] Platelets (Bld) [#/Vol] 165 10*3/uL Normal 150-450 [facility] Comment on above: Performed By: #### L [id number] #### [facility] [address] [place], [address] RBC (Bld) [#/Vol] 5.16 10*6/uL Normal 4.6-6.2 [facility] Comment on above: Performed By: #### L [id number] #### [facility] [address] [place], [address] RDW SD 42.5 fl Normal 35.1-43.9 [facility] Comment on above: Performed By: #### L [id number] #### [facility] [address] [place], [address] WBC (Bld) [#/Vol] 6.2 10*3/uL Normal 4.4-11.0 [facility] Comment on above: Performed By: #### L [id number] #### [facility] [address] [place], [address] Carbon dioxide, total [Moles /volume] in Central venous bloodOrdered By: Carly Adams on 06-21-2024 CO2 [Moles/Vol] 22.7 mmol/L 21.0-32.0 [facility] Chloride assayOrdered By: Ilene Adams on 06-21-2024 Chloride [Moles/Vol] 101 mmol/L 98-[address] [facility] Emergency Department Summary on 06-21-2024 Emergency Department Summary [facility] Medical Records Department [address] [place] [address] Emergency Department Summary 06/21/24 MR#: [id number] Acct: [id number] Name: RAMIRO LALA Rep #: [id number] : 1950 74 From: Carly Adams DO [...] metoprolol. Patient denies recent illness. Denies syncope. [facility] Medical History Wears hearing aid Wears glasses [...] Endocrine Endocrinology: Denies polydipsia, polyphagia or polyuria Hematologic/Lymphatic Hematologic/Lymphatic: Denies easy bleeding, easy bruising or lymphadenopathy Allergic/Immunologic Allergic/Immunologic ED: Denies mouth swelling, tongue swelling or urticaria EXAM Physical Exam Const Vital Signs: 06/21/24 09:26 06/21/24 09:55 06/21/24 10:00 Temperature 97.7 F L Temperature Source Oral Pulse Rate 53 L 52 L Pulse Rate [Lying] 46 L Pulse Rate [Sitting (for 1 mi (more content not included)... Normal [facility] Eosinophil percentageOrdered By: Carly Adams on 06-21-2024 Eosinophils/100 WBC (Bld) 3.2 % 0-5 [facility] Erythrocyte distribution wid th (RBC) [Ratio]Ordered By: Carly Adams on 06-21-2024 Erythrocyte distribution width (RBC) [Entitic vol] 42.5 fL 35.1-43.9 [facility] Erythrocyte distribution wid th ratioOrdered By: Carly Adams on 06-21-2024 Erythrocyte distribution width (RBC) [Ratio] 13.7 % 11.6-14.6 [facility] Erythrocyte distribution wid th standard deviationOrdered By: Carly Adams on 06-21-2024 Erythrocyte distribution width (RBC) [Ratio] 42.5 fl 35.1-43.9 [facility] Estimation of creatinine negrito aranceOrdered By: Carly Adams on 06-21-2024 Estimated Creatinine Clearance Calc 87.64 ml/min 50-250 [facility] GFR/1.73 sq M.predicted toro g non-blacks MDRD (S/P/Bld) [Vol rate/Area]Ordered By: Carly Adams on 06-21-2024 Estimated GFR (MDRD) Non-Af Amer 81 >60 [facility] Comment on above: mL/min/1.73m2 CKD-EP I Creatinine Equation (2020) Glomerular filtration rate ( GFR) estimation/1.73 sq m using serum, plasma, or whole bOrdered By: Carly Adams on 06-21-2024 GFR/1.73 sq M.predicted among non-blacks MDRD (S/P/Bld) [Vol rate/Area] 81 mL/min/{1.73_m2} >60 [facility] Comment on above: mL/min/1.73m2 CKD-EP I Creatinine Equation (2020) Hematocrit Auto (Bld) [Volum e fraction]Ordered By: Carly Adams on 06-21-2024 Hematocrit (Bld) [Volume fraction] 43.7 % 40-54 [facility] Hemoglobin measurementOrdere d By: Carly Adams on 06-21-2024 Hemoglobin (Bld) [Mass/Vol] 14.6 g/dL 13.0-16.5 [facility] Immature granulocytes/100 WB C Auto (Bld)Ordered By: Carly Adams on 06-21-2024 Immature granulocytes/100 WBC (Bld) 0.500 % 0.0-0.9 [facility] Comment on above: IG% - Immature Granu locytes (promyelocytes, myelocytes and metamyelocytes) > 1% indicates that a LEFT SHIFT is Present. L501.4021on 06-21-2024 Trop T High Sen 8 ng/L Normal <=22 [facility] Comment on above: Performed By: #### L 501.9959 #### [facility] [address] [place], [address] Lymphocytes Auto (Unsp spec) [#/Vol]Ordered By: Carly Adams on 06-21-2024 Lymphocytes (Bld) [#/Vol] 1.74 10*3/uL 0.83-4.51 [facility] Lymphocytes/100 WBC Auto (Un sp spec)Ordered By: Carly Adams on 06-21-2024 Lymphocytes/100 WBC (Bld) 27.9 % 19-41 [facility] MCV (mean corpuscular volume ) determinationOrdered By: Carly Adams on 06-21-2024 MCV (RBC) [Entitic vol] 84.7 fL 80-94 [facility] Mean corpuscular hemoglobin (MCH) determinationOrdered By: Beebe Healthcareismael on 06-21-2024 MCH (RBC) [Entitic mass] 28.3 pg 27.0-32.0 [facility] Mean corpuscular hemoglobin concentration (MCHC) determinationOrdered By: Carly Adams on 06-21-2024 MCHC (RBC) [Mass/Vol] 33.4 g/dL 32-36 [facility] Mean platelet volume determi nationOrdered By: Carly Adams on 06-21-2024 Platelet mean volume (Bld) [Entitic vol] 12.1 fL High 6.2-12.0 [facility] Monocyte percentageOrdered B y: Carly Adams on 06-21-2024 Monocytes/100 WBC (Bld) 12.7 % High 0-10 [facility] Neutrophil percentageOrdered By: Carly Adams on 06-21-2024 Neutrophils/100 WBC (Bld) 54.7 % 47-70 [facility] Nucleated red blood cell per centageOrdered By: Carly Adams on 06-21-2024 Nucleated RBC/100 WBC (Bld) [Ratio] 0 % 0-5 [facility] Platelet countOrdered By: Ilene dakotah Bryan on 06-21-2024 Platelets (Bld) [#/Vol] 165 10*3/uL 150-450 [facility] Potassium (Unsp spec) [Mass/ Vol]Ordered By: Carly Adams on 06-21-2024 Potassium [Moles/Vol] 4.2 mmol/L 3.3-5.1 [facility] Potassium measurement (mass/ volume)Ordered By: Carly Adams on 06-21-2024 Potassium (Unsp spec) [Mass/Vol] 4.2 mmol/L 3.3-5.1 [facility] RBC Auto (Bld) [#/Vol]Ordere d By: Carly Nurisismael on 06-21-2024 RBC (Bld) [#/Vol] 5.16 10*6/uL 4.6-6.2 [facility] Serum creatinine measurement (mass/volume)Ordered By: Carly Adams on 06-21-2024 Creatinine [Mass/Vol] 0.98 mg/dL 0.70-1.20 [facility] Serum glucose measurement (m ass/volume)Ordered By: Carly Adams on 06-21-2024 Glucose [Mass/Vol] 95 mg/dL 70-99 [facility] Serum or plasma calcium elio urement (mass/volume)Ordered By: Carly Adams on 06-21-2024 Calcium [Mass/Vol] 9.2 mg/dL 7.6-11.0 [facility] Serum or plasma urea nitroge n measurement (mass/volume)Ordered By: Carly Adams on 06-21-2024 Urea nitrogen [Mass/Vol] 16 mg/dL 4-19 [facility] Sodium levelOrdered By: Kajal Adams on 06-21-2024 Sodium [Moles/Vol] 136 mmol/L 133-145 [facility] Troponin T.cardiac High sens itivity method [Mass/Vol]Ordered By: Carly Adams on 06-21-2024 Troponin T High Sensitivity 8 ng/L <22 [facility] Troponin T.cardiac [Mass/vol ume] in Serum or Plasma by High sensitivity methodOrdered By: Carly Adams on 06-21-2024 Troponin T.cardiac High sensitivity method [Mass/Vol] 8 ng/L <22 [facility] White blood cell (WBC) count Ordered By: Carly Adams on 06-21-2024 WBC (Bld) [#/Vol] 6.2 10*3/uL 4.4-11.0 [facility] Cardiology Visit Reporton Cardiology Visit Report [facility] [address] [place] [address] OFFICE VISIT Date of Service: 05/25/24 MR#: [id number] Acct: [id number] Name: RAMIRO LALA Rep #: [id number] : 1950 Provider: JAZMÍN Lam Age/Sex: 74/M Location: [facility] [place] Status: Signed HPI HPI History of Present Illness Details: This is a 74-year-old white male who presents today for an outpatient cardiovascular follow-up. He was first seen in office in September 2021 based upon concerns of an abnormal preoperative ECG demonstrating atrial fibrillation superimposed upon a history of hypertension. 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 Normal [facility] Diagnostic total prostate sp ecific antigen (PSA) measurementOrdered By: Ling Beck on 04-17-2024 Prostate Specific Antigen Total < 0.01 ng/mL 0.0-4.0 [facility] Comment on above: This test was perfor med using the TPSA assay method for [employer] chemistry system. Values obtained with differentassay methods cannot be used interchangably.When changing PSA assays in the course of monitoring apatient, additional sequential testing should be carriedout to confirm baseline values. PSA,Total- Diagnosticon 04-07 PSA, DIAGNOSTIC < 0.01 Normal 0.0-4.0 [facility] Comment on above: Result Comment: This test was performed using the TPSA assay method for the [employer] chemistry system. Values obtained with different assay methods cannot be used interchangably. When changing PSA assays in the course of monitoring a patient, additional sequential testing should be carried out to confirm baseline values. Performed By: #### L 501.9940 #### [facility] [address] [place], [address] Radiation Oncology Visiton 1 03-10-2023 Radiation Oncology Visit [facility] [address] [place] [address] OFFICE VISIT Date of Service: 11928 MR#: [id number] Acct: [id number] Name: RAMIRO LALA Rep #: [id number] : 1950 From: Yoav Olivares Age/Sex: 73/M Location: [facility] Status: Signed Intake Vital Signs 07/11/23 10:20 [...] the left.??? (more content not included)... Normal [facility] PSA,Total- Diagnosticon 11-0 PSA, DIAGNOSTIC < 0.01 Normal 0.0-4.0 [facility] Comment on above: Result Comment: This test was performed using the TPSA assay method for the [employer] chemistry system. Values obtained with different assay methods cannot be used interchangably. When changing PSA assays in the course of monitoring a patient, additional sequential testing should be carried out to confirm baseline values. Performed By: #### L [id number] #### [facility] [address] [place], [address] Office Visiton 11-29-2023 Follow-up visit [id number] JerrellLuis Fernando segura German 1950 M Date Provider Department Center 11/29/2023 MAURICE CARROLL [facility] [address] Family History Problem Relation Age of Onset Hypertension Mother Cancer Mother Hypertension Father Family Status - Relation Status Age at Mother Father Level of Service:[address] [place] OFFICE/OUTPATIENT NEW MODERATE MDM 45 MINUTES Reason for Visit and Comments: New Patient [542] - PAF Normal [facility] Progress Noteon 11-29-2023 Progress Note [facility] Cardiology Note Chief Complaint: [...] and was asymptomatic initially. Records from the [place] [facility] are reviewed. A Holter [...] headaches. Hematological: Negative. Does not bruise/bleed easily. Psychiatric/Behavioral : Negative. Negative for dysphoric mood. Physical Examination: [...] Normal r (more content not included)... Normal [facility] LABORATORYOrdered By: Jaden Mcarthur on 11-28-2023 Cholesterol [...] 11-28-2023 Cholesterol [Mass/Vol] 125 mg/dL Normal 0-200 [facility] Comment on above: Result Comment: Chol esterol Reference Interval: Less than 200 Desirable 200-239 Borderline high risk 240 and above High risk Performed By: #### L IPID #### [address] [address] Cholesterol in HDL [Mass/Vol] 33 mg/dL Low 40-60 [facility] Comment on above: Performed By: #### L IPID #### [address] [address] Cholesterol in LDL [Mass/Vol] 51 mg/dL Normal 0-130 [facility] Comment on above: Performed By: #### L IPID #### [address] [address] Triglyceride [Mass/Vol] 206 mg/dL High 0-150 [facility] Comment on above: Result Comment: Trig lyceride Reference Interval: Less than 150 Normal 150-199 Borderline high risk 200-499 High risk 500 or higher Very high risk Performed By: #### L IPID #### [address] [place], [place] [address] Basophil percentageOrdered B y: Yoav Olivares on 07-08-2023 Basophil percentage < 0.01 ng/mL 0.0-4.0 [facility] Comment on above: This test was perfor med using the TPSA assay method for the[employer] chemistry system. Values obtained with differentassay methods cannot be used interchangably.When changing PSA assays in the course of monitoring apatient, additional sequential testing should be carriedout to confirm baseline values. Basophil percentageOrdered B y: Aneudy Santiago on 04-11-2023 Basophil percentage < 0.01 ng/mL 0.0-4.0 [facility] Comment on above: This test was perfor med using the TPSA assay method for the[employer] chemistry system. Values obtained with differentassay methods cannot be used interchangably.When changing PSA assays in the course of monitoring apatient, additional sequential testing should be carriedout to confirm baseline values. Absolute lymphocyte countOrd ered By: Luis Pringle on 03-03-2023 Lymphocytes Auto (Unsp spec) [#/Vol] 1.00 10*3/uL 0.83-4.51 [facility] Basophil percentageOrdered B y: Luis Pringle on 03-03-2023 Basophils/100 WBC (Bld) 0.9 % 0-1 [facility] Chloride [Moles/Vol] 105 mmol/L 98-[address] [facility] Eosinophils/100 WBC (Bld) 5.1 % 0-5 [facility] Glucose [Mass/Vol] 124 mg/dL 74-106 [facility] Comment on above: Fasting Glucose resu lt from 100 to 125 mg/dL suggests IMPAIRED HOMEOSTASIS per A.D.A. criteria. Neutrophils (Bld) [#/Vol] 2.8 10*3/uL 2.0-7.7 [facility] Neutrophils/100 WBC (Bld) 61.6 % 47-70 [facility] Potassium [Moles/Vol] 3.7 mmol/L 3.5-5.1 [facility] Sodium [Moles/Vol] 138 mmol/L 136-145 [facility] WBC (Bld) [#/Vol] 4.5 10*3/uL 4.4-11.0 [facility] Blood erythrocytes count (nu mber/volume)Ordered By: Luis Pringle on 03-03-2023 RBC (Bld) [#/Vol] 4.63 10*6/uL 4.6-6.2 [facility] Blood hemoglobin measurement (mass/volume)Ordered By: Luis Pringle on 03-03-2023 Hemoglobin (Bld) [Mass/Vol] 13.1 g/dL 13.0-16.5 [facility] Blood lymphocytes/100 leukoc ytesOrdered By: Luis Pringle on 03-03-2023 Lymphocytes/100 WBC (Bld) 22.2 % 19-41 [facility] Blood monocytes/100 leukocyt esOrdered By: Luis Pringle on 03-03-2023 Monocytes/100 WBC (Bld) 10.0 % 0-10 [facility] Blood platelet mean volumeOr dered By: Luis Pringle on 03-03-2023 Platelet mean volume (Bld) [Entitic vol] 11.2 fL 6.2-12.0 [facility] Determination of erythrocyte mean corpuscular volume (MCV)Ordered By: Luis Pringle on 03-03-2023 MCV (RBC) [Entitic vol] 86.6 fL 80-94 [facility] Hematocrit Auto (Bld) [Volum e fraction]Ordered By: Luis Pringle on 03-03-2023 Hematocrit (Bld) [Volume fraction] 40.1 % 40-54 [facility] - Chemistry and C hemistry - challengeOrdered By: Luis Pringle on 03-03-2023 CO2 [Moles/Vol] 25.0 mmol/L 21.0-32.0 [facility] Urea nitrogen/Creatinine [Mass ratio] 18.0 mg/mg 10-20 [facility] - Hematology and Cell countsOrdered By: Luis Pringle on 03-03-2023 Erythrocyte distribution width (RBC) [Entitic vol] 41.4 fL 35.1-43.9 [facility] Erythrocyte distribution width (RBC) [Ratio] 13.2 % 11.6-14.6 [facility] Immature granulocytes/100 WBC (Bld) 0.200 % 0.0-0.9 [facility] Comment on above: IG% - Immature Granu locytes (promyelocytes, myelocytes and metamyelocytes) > 1% indicates that a LEFT SHIFT is Present. MCH (RBC) [Entitic mass] 28.3 pg 27.0-32.0 [facility] Nucleated RBC/100 WBC (Bld) [Ratio] 0 % 0-5 [facility] MCHC Auto (RBC) [Mass/Vol]Or dered By: Luis Pringle on 03-03-2023 MCHC (RBC) [Mass/Vol] 32.7 g/dL 32-36 [facility] No Panel InformationOrdered By: Luis Pringle on 03-03-2023 Estimated Creatinine Clearance Calc 71.13 ml/min [facility] Estimated GFR (MDRD) Amer 94 mL/min >60 [facility] Comment on above: GFR Calc Estimated GFR (MDRD) Non-Af Amer 78 mL/min >60 [facility] Comment on above: Non- GFR Calc Platelets bldOrdered By: Edilberto Pringle on 03-03-2023 Platelets (Bld) [#/Vol] 179 10*3/uL 150-450 [facility] Serum or plasma calcium elio urement (mass/volume)Ordered By: Luis Pringle on 03-03-2023 Calcium [Mass/Vol] 9.1 mg/dL 8.5-10.1 [facility] Serum or plasma creatinine m easurement (mass/volume)Ordered By: Luis Pringle on 03-03-2023 Creatinine [Mass/Vol] 1.00 mg/dL 0.70-1.30 [facility] Comment on above: The validity of the calculated GFR & GFRAA in patients over 70 years has not been determined. Clinical correlation is essential. Serum or plasma urea nitroge n measurement (mass/volume)Ordered By: Luis Pringle on 03-03-2023 Urea nitrogen [Mass/Vol] 18 mg/dL 7-18 [facility] Thin prep Papanicolaou smear with manual screeningOrdered By: Luis Pringle on 03-03-2023 Thin prep Papanicolaou smear with manual screening 8 5-15 [facility] .GFRon 02-07-2023 GFR 83 ml/min/1.73sqm Normal [facility] Comment on above: Result Comment: GFR Population [...] Performed By: #### C MP, GFR #### [address] [address] GFR Non- 68 ml/min/1.73sqm Normal [facility] Comment on above: Result Comment: GFR Population [...] Performed By: #### C MP, GFR #### [address] [address] CMPon 02-07-2023 Albumin Level 3.5 G/dL Normal 3.4-4.8 [facility] Comment on above: Performed By: #### C MP, GFR #### [address] [address] Albumin/Globulin [Mass ratio] 1.1 {ratio} Normal 1.1-2.5 [facility] Comment on above: Performed By: #### C MP, GFR #### [address] [address] ALP [Catalytic activity/Vol] 87 U/L Normal 40-135 [facility] Comment on above: Performed By: #### C MP, GFR #### [address] [address] ALT [Catalytic activity/Vol] 31 U/L Normal 16-63 [facility] Comment on above: Performed By: #### C MP, GFR #### [address] [address] AST [Catalytic activity/Vol] 17 U/L Normal 10-40 [facility] Comment on above: Performed By: #### C MP, GFR #### [address] [address] Bili Total 0.5 mg/dL Normal 0.2-1.0 [facility] Comment on above: Result Comment: Use of this assay is not recommended for patients undergoing treatment with eltrombopag due to the potential for falsely elevated results. Performed By: #### C MP, GFR #### [address] [address] BUN/Creatinine Ratio 14 ratio Normal 7-27 [facility] ([place]) Comment on above: Performed By: #### C MP, GFR #### [address] [address] Calcium [Mass/Vol] 9.6 mg/dL Normal 8.4-10.2 [facility] ([place]) Comment on above: Performed By: #### C MP, GFR #### [address] [address] Chloride [Moles/Vol] 104 mmol/L Normal 98-107 [facility] ([place]) Comment on above: Performed By: #### C MP, GFR #### [address] [address] CO2 [Moles/Vol] 29 mmol/L Normal 23-31 [facility]ly [facility] ([place]) Comment on above: Performed By: #### C MP, GFR #### [address] [address] Creatinine [Mass/Vol] 1.06 mg/dL Normal 0.70-1.30 [facility] ([place]) Comment on above: Performed By: #### C MP, GFR #### [address] [address] Electrolyte Balance 7.0 mEq/L Normal 4.0-15.0 [facility] ([place]) Comment on above: Performed By: #### C MP, GFR #### [address] [address] Globulin 3.3 G/dL Normal [facility] ([place] Comment on above: Performed By: #### C MP, GFR #### [address] [address] Glucose [Mass/Vol] 97 mg/dL Normal 83-110 [facility] ([place]) Comment on above: Performed By: #### C MP, GFR #### [address] [address] Potassium [Moles/Vol] 4.6 mmol/L Normal 3.5-5.1 [facility] ([place]) Comment on above: Performed By: #### C MP, GFR #### [address] [address] Sodium [Moles/Vol] 140 mmol/L Normal 136-145 [facility] ([place] Comment on above: Performed By: #### C MP, GFR #### [address] [address] Total Protein 6.8 G/dL Normal 6.4-8.2 [facility] ([place] Comment on above: Performed By: #### C MP, GFR #### [address] [address] Urea nitrogen [Mass/Vol] 15 mg/dL Normal 7-18 [facility] ([place] Comment on above: Performed By: #### C MP, GFR #### [address] [address] Basophil percentageOrdered B y: Beto Huizar on 01-12-2023 Chloride [Moles/Vol] 107 mmol/L 98-[address] [facility] Glucose [Mass/Vol] 125 mg/dL 74-106 [facility] Comment on above: Fasting Glucose resu lt from 100 to 125 mg/dL suggests IMPAIRED HOMEOSTASIS per A.D.A. criteria. Potassium [Moles/Vol] 4.0 mmol/L 3.5-5.1 [facility] Sodium [Moles/Vol] 137 mmol/L 136-145 [facility] WBC (Bld) [#/Vol] 5.3 10*3/uL 4.4-11.0 [facility] Blood erythrocytes count (nu mber/volume)Ordered By: Beto Huizar on 01-12-2023 RBC (Bld) [#/Vol] 4.63 10*6/uL 4.6-6.2 [facility] Blood hemoglobin measurement (mass/volume)Ordered By: Beto Huizar on 01-12-2023 Hemoglobin (Bld) [Mass/Vol] 13.6 g/dL 13.0-16.5 [facility] Blood platelet mean volumeOr dered By: [facility] Hu[facility] on 01-12-2023 Platelet mean volume (Bld) [Entitic vol] 11.4 fL 6.2-12.0 [facility] Determination of erythrocyte mean corpuscular volume (MCV)Ordered By: Beto Huizar on 01-12-2023 MCV (RBC) [Entitic vol] 86.6 fL 80-94 [facility] Hematocrit Auto (Bld) [Volum e fraction]Or[facility] By: [facility] on 01-12-2023 Hematocrit (Bld) [Volume fraction] 40.1 % 40-54 [facility] - Chemistry and C hemistry - challengeOrdered By: [facility] on 01-12-2023 CO2 [Moles/Vol] 23.0 mmol/L 21.0-32.0 [facility] Urea nitrogen/Creatinine [Mass ratio] 16.3 mg/mg 10-20 [facility] - Hematology and Cell countsOrdered By: [facility] on 01-12-2023 Erythrocyte distribution width (RBC) [Entitic vol] 40.9 fL 35.1-43.9 [facility] Erythrocyte distribution width (RBC) [Ratio] 13.1 % 11.6-14.6 [facility] MCH (RBC) [Entitic mass] 29.4 pg 27.0-32.0 [facility] MCHC Auto (RBC) [Mass/Vol]Or dered By: Beto Huizar on 01-12-2023 MCHC (RBC) [Mass/Vol] 33.9 g/dL 32-36 [facility] No Panel InformationOrdered By: Beto Huizar on 01-12-2023 Estimated GFR (MDRD) Amer 103 mL/min >60 [facility] Comment on above: GFR Calc Estimated GFR (MDRD) Non-Af Amer 85 mL/min >60 [facility] Comment on above: Non- GFR Calc Platelets bldOrdered By: Sudha boratop Bhupendra on 01-12-2023 Platelets (Bld) [#/Vol] 198 10*3/uL 150-450 [facility] Serum or plasma calcium elio urement (mass/volume)Ordered By: Beto Huizar on 01-12-2023 Calcium [Mass/Vol] 9.1 mg/dL 8.5-10.1 [facility] Serum or plasma creatinine m easurement (mass/volume)Ordered By: Beto Huizar on 01-12-2023 Creatinine [Mass/Vol] 0.92 mg/dL 0.70-1.30 [facility] Comment on above: The validity of the calculated GFR & GFRAA in patients over 70 years has not been determined. Clinical correlation is essential. Serum or plasma urea nitroge n measurement (mass/volume)Ordered By: Beto Huizar on 01-12-2023 Urea nitrogen [Mass/Vol] 15 mg/dL 7-18 [facility] Thin prep Papanicolaou smear with manual screeningOrdered By: Beto Huizar on 01-12-2023 Thin prep Papanicolaou smear with manual screening 7 5-15 [facility] No Panel InformationOrdered By: Aneudy Santiago on 01-05-2023 Prostate Specific Antigen Total < 0.01 ng/mL 0.0-4.0 [facility] Comment on above: This test was perfor med using the TPSA assay method [facility] system. Values obtained with differentassay methods cannot be used interchangably.When changing PSA assays in the course of monitoring apatient, additional sequential testing should be carriedout to confirm baseline values. No Panel InformationOrdered By: FARIBA Archibald on 09-29-2022 Prostate Specific Antigen Total < 0.01 ng/mL 0.0-4.0 [facility] Comment on above: This test was perfor med using the TPSA assay method for the[employer] chemistry system. Values obtained with differentassay methods [...] Date: 09/26/2022 9:35:05 PM Ordering Provider: AISSATOU WEBSTER [facility] ([place]) Basophil percentageOrdered B y: Yvon Yang on 08-27-2022 Chloride [Moles/Vol] 107 mmol/L 98-[address] [facility] Glucose [Mass/Vol] 106 mg/dL 74-106 [facility] Comment on above: Fasting Glucose resu lt from 100 to 125 mg/dL suggests IMPAIRED HOMEOSTASIS per A.D.A. criteria. Potassium [Moles/Vol] 3.9 mmol/L 3.5-5.1 [facility] Sodium [Moles/Vol] 140 mmol/L 136-145 [facility] WBC (Bld) [#/Vol] 4.5 10*3/uL 4.4-11.0 [facility] Blood erythrocytes count (nu mber/volume)Ordered By: Yvon Yang on 08-27-2022 RBC (Bld) [#/Vol] 4.33 10*6/uL 4.6-6.2 [facility] Blood hemoglobin measurement (mass/volume)Ordered By: Yvon aYng on 08-27-2022 Hemoglobin (Bld) [Mass/Vol] 12.7 g/dL 13.0-16.5 [facility] Blood platelet mean volumeOr dered By: Yvon Yang on 08-27-2022 Platelet mean volume (Bld) [Entitic vol] 10.8 fL 6.2-12.0 [facility] Determination of erythrocyte mean corpuscular volume (MCV)Ordered By: Yvon Yang on 08-27-2022 MCV (RBC) [Entitic vol] 87.5 fL 80-94 [facility] Hematocrit Auto (Bld) [Volum e fraction]Ordered By: Yvon Yang on 08-27-2022 Hematocrit (Bld) [Volume fraction] 37.9 % 40-54 [facility] - Chemistry and C hemistry - challengeOrdered By: Yvon Yang on 08-27-2022 CO2 [Moles/Vol] 24.0 mmol/L 21.0-32.0 [facility] Natriuretic peptide B (Bld) [Mass/Vol] 16.9 pg/mL 0-100 [facility] Urea nitrogen/Creatinine [Mass ratio] 17.3 mg/mg 10-20 [facility] - Hematology and Cell countsOrdered By: Yvon Yang on 08-27-2022 Erythrocyte distribution width (RBC) [Entitic vol] 43.3 fL 35.1-43.9 [facility] Erythrocyte distribution width (RBC) [Ratio] 13.4 % 11.6-14.6 [facility] MCH (RBC) [Entitic mass] 29.3 pg 27.0-32.0 [facility] MCHC Auto (RBC) [Mass/Vol]Or dered By: Yvon Yang on 08-27-2022 MCHC (RBC) [Mass/Vol] 33.5 g/dL 32-36 [facility] No Panel InformationOrdered By: Yvon Yang on 08-27-2022 Estimated GFR (MDRD) Amer 96 mL/min >60 [facility] Comment on above: GFR Calc Estimated GFR (MDRD) Non-Af Amer 80 mL/min >60 [facility] Comment on above: Non- GFR Calc Thyroid Stimulating Hormone (TSH) 1.02 uIU/mL 0.358-3.74 [facility] Platelets bldOrdered By: Gordo Yang on 08-27-2022 Platelets (Bld) [#/Vol] 189 10*3/uL 150-450 [facility] Serum or plasma calcium elio urement (mass/volume)Ordered By: Yvon Yang on 08-27-2022 Calcium [Mass/Vol] 9.1 mg/dL 8.5-10.1 [facility] Serum or plasma creatinine m easurement (mass/volume)Ordered By: Yvon Yang on 08-27-2022 Creatinine [Mass/Vol] 0.98 mg/dL 0.70-1.30 [facility] Comment on above: The validity of the calculated GFR & GFRAA in patients over 70 years has not been determined. Clinical correlation is essential. Serum or plasma urea nitroge n measurement (mass/volume)Ordered By: Yvon Yang on 08-27-2022 Urea nitrogen [Mass/Vol] 17 mg/dL 7-18 [facility] Thin prep Papanicolaou smear with manual screeningOrdered By: Yvon Yang on 08-27-2022 Thin prep Papanicolaou smear with manual screening 9 5-15 [facility] Basophil percentageOrdered B y: Dr. Huizar on 08-18-2022 Creatinine [Mass/Vol] 1.0 mg/dL 0.70-1.30 [facility] No Panel InformationOrdered By: Dr. Huizar on 08-18-2022 Bedside Estimated GFR (eGFR) > 60.0000 mL/min >60 [facility] Basophil percentageOrdered B y: Yvon Yang on 06-01-2022 Chloride [Moles/Vol] 105 mmol/L 98-[address] [facility] Glucose [Mass/Vol] 79 mg/dL 74-106 [facility] Potassium [Moles/Vol] 4.3 mmol/L 3.5-5.1 [facility] Sodium [Moles/Vol] 136 mmol/L 136-145 [facility] Laboratory - Chemistry and C hemistry - challengeOrdered By: Yvon Yang on 06-01-2022 CO2 [Moles/Vol] 28.0 mmol/L 21.0-32.0 [facility] Urea nitrogen/Creatinine [Mass ratio] 26.6 mg/mg 10-20 [facility] No Panel InformationOrdered By: Yvon Yang on 06-01-2022 Estimated GFR (MDRD) Amer 106 mL/min >60 [facility] Comment on above: GFR Calc Estimated GFR (MDRD) Non-Af Amer 88 mL/min >60 [facility] Comment on above: Non- GFR Calc Serum or plasma calcium elio urement (mass/volume)Ordered By: Yvon Yang on 06-01-2022 Calcium [Mass/Vol] 9.1 mg/dL 8.5-10.1 [facility] Serum or plasma creatinine m easurement (mass/volume)Ordered By: Yvon Yang on 06-01-2022 Creatinine [Mass/Vol] 0.90 mg/dL 0.70-1.30 [facility] Comment on above: The validity of the calculated GFR & GFRAA in patients over 70 years has not been determined. Clinical correlation is essential. Serum or plasma urea nitroge n measurement (mass/volume)Ordered By: Yvon Yang on 06-01-2022 Urea nitrogen [Mass/Vol] 24 mg/dL 09-21 [facility] Thin prep Papanicolaou smear with manual screeningOrdered By: Yvon Yang on 06-01-2022 Thin prep Papanicolaou smear with manual screening 3 5-15 [facility] No Panel InformationOrdered By: Dr. Santiago on 03-24-2022 Prostate Specific Antigen Total 0.49 ng/mL 0.0-4.0 [facility] Comment on above: This test was perfor med using the TPSA assay method for the[employer] chemistry system. Values obtained with differentassay methods cannot be used interchangably.When changing PSA assays in the course of monitoring apatient, additional sequential testing should be carriedout to confirm baseline values. Basophil percentageOrdered B y: Dr. Hadley on 12-14-2021 Chloride [Moles/Vol] 105 mmol/L 98-[address] [facility] Glucose [Mass/Vol] 84 mg/dL 74-106 [facility] Potassium [Moles/Vol] 4.3 mmol/L 3.5-5.1 [facility] Sodium [Moles/Vol] 138 mmol/L 136-145 [facility] WBC (Bld) [#/Vol] 6.4 10*3/uL 4.4-11.0 [facility] Blood erythrocytes count (nu mber/volume)Ordered By: Dr. Hadley on 12-14-2021 RBC (Bld) [#/Vol] 5.36 10*6/uL 4.6-6.2 [facility] Blood hemoglobin measurement (mass/volume)Ordered By: Dr. Hadley on 12-14-2021 Hemoglobin (Bld) [Mass/Vol] 15.0 g/dL 13.0-16.5 [facility] Blood platelet mean volumeOr dered By: Dr. Hadley on 12-14-2021 Platelet mean volume (Bld) [Entitic vol] 11.3 fL 6.2-12.0 [facility] Determination of erythrocyte mean corpuscular volume (MCV)Ordered By: Dr. Hadley on 12-14-2021 MCV (RBC) [Entitic vol] 84.7 fL 80-94 [facility] Hematocrit Auto (Bld) [Volum e fraction]Ordered By: Dr. Hadley on 12-14-2021 Hematocrit (Bld) [Volume fraction] 45.4 % 40-54 [facility] - Chemistry and C hemistry - challengeOrdered By: Dr. Hadley on 12-14-2021 CO2 [Moles/Vol] 26.0 mmol/L 21.0-32.0 [facility] Urea nitrogen/Creatinine [Mass ratio] 15.3 mg/mg 10-20 [facility] - Hematology and Cell countsOrdered By: Dr. Hadley on 12-14-2021 Erythrocyte distribution width (RBC) [Entitic vol] 43.5 fL 35.1-43.9 [facility] Erythrocyte distribution width (RBC) [Ratio] 14.2 % 11.6-14.6 [facility] MCH (RBC) [Entitic mass] 28.0 pg 27.0-32.0 [facility] MCHC Auto (RBC) [Mass/Vol]Or dered By: Dr. Hadley on 12-14-2021 MCHC (RBC) [Mass/Vol] 33.0 g/dL 32-36 [facility] No Panel InformationOrdered By: Dr. Hadley on 12-14-2021 Estimated GFR (MDRD) Amer 114 mL/min >60 [facility] Comment on above: GFR Calc Estimated GFR (MDRD) Non-Af Amer 94 mL/min >60 [facility] Comment on above: Non- GFR Calc Platelets bldOrdered By: Dr. Hadley on 12-14-2021 Platelets (Bld) [#/Vol] 199 10*3/uL 150-450 [facility] Serum or plasma calcium elio urement (mass/volume)Ordered By: Dr. Hadley on 12-14-2021 Calcium [Mass/Vol] 9.4 mg/dL 8.5-10.1 [facility] Serum or plasma creatinine m easurement (mass/volume)Ordered By: Dr. Hadley on 12-14-2021 Creatinine [Mass/Vol] 0.85 mg/dL 0.70-1.30 [facility] Comment on above: The validity of the calculated GFR & GFRAA in patients over 70 years has not been determined. Clinical correlation is essential. Serum or plasma urea nitroge n measurement (mass/volume)Ordered By: Dr. Hadley on 12-14-2021 Urea nitrogen [Mass/Vol] 13 mg/dL -18 [facility] Thin prep Papanicolaou smear with manual screeningOrdered By: Dr. Hadley on 12-14-2021 Thin prep Papanicolaou smear with manual screening 7 -15 [facility] LABORATORYOrdered By: Pam Cortes on 09-30-2021 ADMITTED TO INTENSIVE CARE UNIT FOR CONDITION OF INTEREST:FIND:PT:^PATIE NT:ORD: No (09/30/21 12:00 PM) Invalid Interpretation Code AO Auto Urine SS EMPLOYED IN A HEALTHCARE SETTING:FIND:PT:^PATIEN T:ORD: No (09/30/21 12:00 PM) Invalid Interpretation Code AO Auto Urine SS FIRST TEST FOR CONDITION OF INTEREST:FIND:PT:^PATIE NT:ORD: No (09/30/21 12:00 PM) Invalid Interpretation Code AO Auto Urine SS HAS SYMPTOMS RELATED TO CONDITION OF INTEREST:FIND:PT:^THANH NT:ORD: Yes (09/30/21 12:00 PM) Invalid Interpretation Code AO Auto Urine SS Illness or injury onset date and time [id number] Invalid Interpretation Code AO Auto Urine SS Patient was hospitalized because of this condition No (09/30/21 12:00 PM) Invalid Interpretation Code AO Auto Urine SS status Not (09/30/21 12:00 PM) Invalid Interpretation Code AO Auto Urine SS RESIDES IN A CONGREGATE CARE SETTING:FIND:PT:^KRISTY T:ORD: No (09/30/21 12:00 PM) Invalid Interpretation [...] for amplification.LORNA SARS-CoV-2 Assay is a Real-Time reverse-transcriptase polymerase chain reaction (RT-PCR) based qualitative in [...] 2021 WBC (Bld) [#/Vol] 5.5 10*3/uL 4.4-11.0 [facility] Work Phone: Blood erythrocytes count (nu mber/volume)on 09-23-2021 RBC (Bld) [#/Vol] 5.03 10*6/uL 4.6-6.2 [facility]: Blood hemoglobin measurement (mass/volume)on 09-23-2021 Hemoglobin (Bld) [Mass/Vol] 13.8 g/dL 13.0-16.5 [facility] Work Phone: Blood platelet mean volumeon 09-23-2021 Platelet mean volume (Bld) [Entitic vol] 11.9 fL 6.2-12.0 [facility] Work Phone: Determination of erythrocyte mean corpuscular volume (MCV)on 09-23-2021 MCV (RBC) [Entitic vol] 85.5 fL 80-94 [facility] Work Phone: [phone] Hematocrit Auto (Bld) [Volum e fraction]on 09-23-2021 Hematocrit (Bld) [Volume fraction] 43.0 % 40-54 [facility] Work Phone: Laboratory - Hematology and Cell countson 09-23-2021 Erythrocyte distribution width (RBC) [Entitic vol] 42.5 fL 35.1-43.9 [facility] Work Phone: [phone] Erythrocyte distribution width (RBC) [Ratio] 13.7 % 11.6-14.6 [facility] Work Phone: [phone] MCH (RBC) [Entitic mass] 27.4 pg 27.0-32.0 [facility] Work Phone: MCHC Auto (RBC) [Mass/Vol]on 09-23-2021 MCHC (RBC) [Mass/Vol] 32.1 g/dL 32-36 [facility] Work Phone: [phone] Platelets bldon 09-23-2021 Platelets (Bld) [#/Vol] 186 10*3/uL 150-450 [facility] Work Phone: LABORATORYOrdered By: Mina Lozano [...] AO Chemistry S GFR Non- 60 ml/min/1.73sqm Invalid Interpretation Code AO Chemistry S Basophil percentageon 2021 Basophil percentage < 0.9 mg/dL 0.70-1.[address] [facility] Work Phone: No Panel Informationon 08-05 Bedside Estimated GFR (eGFR) > 60.0000 mL/min >60 [facility] Work Phone: No Panel Informationon 07-21 Prostate Specific Antigen Total 27.80 ng/mL 0.0-4.0 [facility] Work Phone: Comment on above: This test was perfor med using the TPSA assay method for [employer] chemistry system. Values obtained with differentassay methods cannot be used interchangably.When changing PSA assays in the course of monitoring apatient, additional sequential testing should be carriedout to confirm baseline values. [facility] Surgical Pathology Depar tmenton 07-03-2020 [facility] Surgical Pathology Department Name RAMIRO LALA Pathologist: LINDY FENG MD Date of Procedure: 07/03/2020 Date Received: 07/04/2020 Date Reported 07/07/2020 Submitting Physician: LAURIE QUINONES DO Location: [facility] Copy To/Referring/Attending : AISSATOU WEBSTER [facility] Other External # FINAL DIAGNOSIS A. DESCENDING COLON, POLYPECTOMIES: --FRAGMENTS OF SESSILE SERRATED ADENOMA. Electronically Signed Out By LINDY FENG MD/[facility] By the signature on this report, the individual or group listed as making the Final Interpretation/Diagnos is certifies that they have reviewed this case. Clinical History: {Not Provided} Specimens Submitted As: A: DESCENDING COLON POLYP X2 Gross Description: Received in formalin, labeled with the patient's name and hospital number and "descending polyp", are multiple fragments of stevens, soft tissue aggregating to 1.4 x 0.3 x 0.1 cm. The specimen is submitted in toto in one cassette. KARIME brock/07/06/2020 [facility] Department of Pathology [address] [place] [address] Normal [facility] Comment on above: Performed By: #### U HCS #### [facility] Surgical Pathology Department [id number] [place], [place] [id number] CORONAVIRUS 2019, SCREEN ASY MPTOMATICon 07-02-2020 SARS-CoV-2 (COVID-19) RNA AYLIN+probe Ql (Unsp spec) Not detected Normal Not Detected [facility] Comment on above: Result Comment: . [...] this test method. Fact sheet for providers: https://www.fda.gov/media/937496/download Fact sheet for patients: https://www.fda.gov/media/260519/download This test has received FDA Emergency Use Authorization [EUA] and has been verified by [facility] ([facility]). This test is only authorized for the duration of time that circumstances exist to justify the authorization of the emergency use of in vitro diagnostic tests for the detection of SARS-CoV-2 virus and/or diagnosis of COVID-19 infection under section 564(b)(1) of the Act, 21 U.S.C. 360bbb-3(b)(1), unless the authorization is terminated or revoked sooner. [facility] is certified under CLIA-88 as qualified to perform high complexity testing. Testing is performed in the [facility] laboratories located at [address] [place] [address]. Performed By: #### C OVSC #### [place] [address] Covid 19 Resultson SARS-CoV-2 (COVID-19) RNA AYLIN+probe [...] You may also be contacted by the [facility] to see if any of your [...] or Naproxen (Aleve) can also be used. Mumq-vop-gmexmns cough and cold medicines can be used according to the instructions on the package. Some wocw-ytt-xqjtpib medicines also contain acetaminophen. Make sure you [...] water are not available, use alcohol-based hand maintenance mechanic helper. Avoid touching your eyes, nose, and mouth [...] 24 sofía (more content not included)... Normal [facility] CORONAVIRUS 2019, SCREEN ASY MPTOMATICon 07-01-2020 Lab Specimen Source Nasal, Nasopharyngeal Normal [facility] Comment on above: Performed By: #### C OVSC #### [facility] [address] [place] [address] Vital Signs Date Time Vital Sign Value Performing Clinician Facility 11-23-2024 07:47-0400 Body mass index (BMI) [Ratio] 36.5 kg/m2 Aissatou Webster PERIPATOLOGIST-C Work Phone: [facility] 11-23-2024 07:47-0400 Body weight 118.84 kg Aissatou Webster PERIPATOLOGIST-C Work Phone: [facility] 11-23-2024 07:47-0400 Diastolic blood pressure 63 mm[Hg] Aissatou Webster PERIPATOLOGIST-C Work Phone: [facility] 11-23-2024 07:47-0400 Heart rate 65 /min Aissatou Webster PERIPATOLOGIST-C Work Phone: [facility] 11-23-2024 07:47-0400 Respiratory rate 20 /min Aissatou Webster PERIPATOLOGIST-C Work Phone: [facility] 11-23-2024 07:47-0400 SaO2% (BldA) [Mass fraction] 94 % Aissatou Webster PERIPATOLOGIST-C Work Phone: [facility] 11-23-2024 07:47-0400 Systolic blood pressure 150 mm[Hg] Aissatou Webster PERIPATOLOGIST-C Work Phone: [facility] 11-07-2024 14:26-0400 Diastolic blood pressure 63 mm[Hg] Natasha Mccrary MD Work Phone: [facility] 11-07-2024 14:26-0400 Heart rate 48 /min Natasha Mccrary MD Work Phone: [facility] 11-07-2024 14:26-0400 Respiratory rate 18 /min Natasha Mccrary MD Work Phone: [facility] 11-07-2024 14:26-0400 SaO2% (BldA) [Mass fraction] 97 % Natasha Mccrary MD Work Phone: [facility] 11-07-2024 14:26-0400 Systolic blood pressure 135 mm[Hg] Natasha Mccrary MD Work Phone: [facility] 11-07-2024 11:58-0400 Body height 182.9 cm Natasha Mccrary MD Work Phone: [facility] 11-07-2024 11:58-0400 Body mass index (BMI) [Ratio] 36.35 kg/m2 Natasha Mccrary MD Work Phone: [facility] 11-07-2024 11:58-0400 Body temperature 97.9 [degF] Natasha Mccrary MD Work Phone: [facility] 11-07-2024 11:58-0400 Body weight 121.56 kg Natasha Mccrary MD Work Phone: [facility] 10-31-2024 07:54-0400 Body height 182.9 cm Pacc 1 Work Phone: [facility] 10-31-2024 07:54-0400 Body mass index (BMI) [Ratio] 36.35 kg/m2 Pacc 1 Work Phone: [facility] 10-31-2024 07:54-0400 Body temperature 96.91 [degF] Pacc 1 Work Phone: [facility] 10-31-2024 07:54-0400 Body weight 121.56 kg Pacc 1 Work Phone: [facility] 10-31-2024 07:54-0400 Diastolic blood pressure 62 mm[Hg] Pacc 1 Work Phone: [facility] 10-31-2024 07:54-0400 Heart rate 51 /min Pacc 1 Work Phone: [facility] 10-31-2024 07:54-0400 Respiratory rate 14 /min Pacc 1 Work Phone: [facility] 10-31-2024 07:54-0400 SaO2% (BldA) [Mass fraction] 95 % Pacc 1 Work Phone: [facility] 10-31-2024 07:54-0400 Systolic blood pressure 118 mm[Hg] Pacc 1 Work Phone: [facility] 10-26-2024 10:28-0400 Body weight 122.43 kg Courtney Tien TRIAGE RN.SISAL PICKER Work Phone: [facility] 10-26-2024 10:28-0400 Diastolic blood pressure 75 mm[Hg] Courtney Tien TRIAGE RN.SISAL PICKER Work Phone: [facility] 10-26-2024 10:28-0400 Heart rate 77 /min Courtney Tien TRIAGE RN.SISAL PICKER Work Phone: [facility] 10-26-2024 10:28-0400 Respiratory rate 14 /min Courtney Tien TRIAGE RN.SISAL PICKER Work Phone: [facility] 10-26-2024 10:28-0400 SaO2% (BldA) [Mass fraction] 95 % Courtney Tien TRIAGE RN.SISAL PICKER Work Phone: [facility] 10-26-2024 10:28-0400 Systolic blood pressure 136 mm[Hg] Courtney Tien TRIAGE RN.SISAL PICKER Work Phone: [facility] 08-01-2024 06:36-0400 Body height 180.34 cm Aissatou Webster NP-C Work Phone: [facility] 08-01-2024 06:36-0400 Body mass index (BMI) [Ratio] 36.8 kg/m2 Aissatou Webster NP-C Work Phone: [facility] 08-01-2024 06:36-0400 Body weight 119.74 kg iAssatou Webster PERIPATOLOGIST-C Work Phone: [facility] 08-01-2024 06:36-0400 Diastolic blood pressure 74 mm[Hg] Aissatou Webster PERIPATOLOGIST-C Work Phone: [facility] 08-01-2024 06:36-0400 Heart rate 61 /min Aissatou Webster PERIPATOLOGIST-C Work Phone: [facility] 08-01-2024 06:36-0400 Respiratory rate 18 /min Aissatou Webster PERIPATOLOGIST-C Work Phone: [facility] 08-01-2024 06:36-0400 SaO2% (BldA) [Mass fraction] 93 % Aissatou Webster PERIPATOLOGIST-C Work Phone: [facility] 08-01-2024 06:36-0400 Systolic blood pressure 143 mm[Hg] Aissatou Webster PERIPATOLOGIST-C Work Phone: [facility] 07-10-2024 13:01-0400 Body mass index (BMI) [Ratio] 37.9 kg/m2 Aissatou Webster PERIPATOLOGIST-C Work Phone: [facility] 07-10-2024 13:01-0400 Body temperature 97.4 [degF] Aissatou Webster PERIPATOLOGIST-C Work Phone: [facility] 07-10-2024 13:01-0400 Body weight 123.43 kg Aissatou Webster PERIPATOLOGIST-C Work Phone: [facility] 07-10-2024 13:01-0400 Diastolic blood pressure 77 mm[Hg] Aissatou Webster PERIPATOLOGIST-C Work Phone: [facility] 07-10-2024 13:01-0400 Heart rate 79 /min Aissatou Webster PERIPATOLOGIST-C Work Phone: [facility] 07-10-2024 13:01-0400 Respiratory rate 18 /min Aissatou Webster PERIPATOLOGIST-C Work Phone: [facility] 07-10-2024 13:01-0400 SaO2% (BldA) [Mass fraction] 93 % Aissatou Wbester PERIPATOLOGIST-C Work Phone: [facility] 07-10-2024 13:01-0400 Systolic blood pressure 134 mm[Hg] Aissatou Webster PERIPATOLOGIST-C Work Phone: [facility] 07-10-2024 12:58-0400 Body mass index (BMI) [Ratio] 37.9 kg/m2 Aissatou Webster PERIPATOLOGIST-C Work Phone: [facility] 07-10-2024 12:58-0400 Body weight 123.37 kg Aissatou Webster PERIPATOLOGIST-C Work Phone: [facility] 07-10-2024 12:58-0400 Diastolic blood pressure 72 mm[Hg] Aissatou Webster PERIPATOLOGIST-C Work Phone: [facility] 07-10-2024 12:58-0400 Heart rate 85 /min Aissatou Webster PERIPATOLOGIST-C Work Phone: [facility] 07-10-2024 12:58-0400 Respiratory rate 18 /min Aissatou Webster PERIPATOLOGIST-C Work Phone: [facility] 07-10-2024 12:58-0400 SaO2% (BldA) [Mass fraction] 92 % Aissatou Webster PERIPATOLOGIST-C Work Phone: [facility] 07-10-2024 12:58-0400 Systolic blood pressure 176 mm[Hg] Aissatou Webster PERIPATOLOGIST-C Work Phone: [facility] 06-21-2024 12:07-0400 Body temperature 97.7 [degF] Aissatou Webster PERIPATOLOGIST-C Work Phone: [facility] 06-21-2024 12:07-0400 Diastolic blood pressure 80 mm[Hg] Aissatou Webster PERIPATOLOGIST-C Work Phone: [facility] 06-21-2024 12:07-0400 Heart rate 53 /min Aissatou Webster PERIPATOLOGIST-C Work Phone: [facility] 06-21-2024 12:07-0400 Respiratory rate 20 /min Aissatou Webster PERIPATOLOGIST-C Work Phone: [facility] 06-21-2024 12:07-0400 SaO2% (BldA) [Mass fraction] 98 % Aissatou Webster PERIPATOLOGIST-C Work Phone: [facility] 06-21-2024 12:07-0400 Systolic blood pressure 120 mm[Hg] Aissatou Webster PERIPATOLOGIST-C Work Phone: [facility] 06-21-2024 11:39-0400 Inhaled oxygen flow rate 2 L/min Aissatou Webster PERIPATOLOGIST-C Work Phone: [facility] 06-21-2024 09:26-0400 Body height 180.34 cm Aissatou Webster PERIPATOLOGIST-C Work Phone: [facility] 06-21-2024 09:26-0400 Body mass index (BMI) [Ratio] 38.4 kg/m2 Aissatou Webster PERIPATOLOGIST-C Work Phone: [facility] 06-21-2024 09:26-0400 Body weight 124.9 kg Aissatou Webster PERIPATOLOGIST-C Work Phone: [facility] 05-25-2024 07:40-0400 Body mass index (BMI) [Ratio] 36.6 kg/m2 Aissatou Webster PERIPATOLOGIST-C Work Phone: [facility] 05-25-2024 07:40-0400 Body weight 122.46 kg Aissatou Webster PERIPATOLOGIST-C Work Phone: [facility] 05-25-2024 07:40-0400 Diastolic blood pressure 56 mm[Hg] Aissatou Webster PERIPATOLOGIST-C Work Phone: [facility] 05-25-2024 07:40-0400 Heart rate 53 /min Aissatou Webster PERIPATOLOGIST-C Work Phone: [facility] 05-25-2024 07:40-0400 Respiratory rate 20 /min Aissatou Webster PERIPATOLOGIST-C Work Phone: [facility] 05-25-2024 07:40-0400 SaO2% (BldA) [Mass fraction] 95 % Aissatou Webster PERIPATOLOGIST-C Work Phone: [facility] 05-25-2024 07:40-0400 Systolic blood pressure 118 mm[Hg] Aissatou Webster PERIPATOLOGIST-C Work Phone: [facility] 11-29-2023 08:44-0400 Body height 182.9 cm Maurice Fulton MD Work Phone: [facility] 11-29-2023 08:44-0400 Body mass index (BMI) [Ratio] 36.75 kg/m2 Maurice Fulton MD Work Phone: [facility] 11-29-2023 08:44-0400 Body weight 122.92 kg Maurice Fulton MD Work Phone: [facility] 11-29-2023 08:44-0400 Diastolic blood pressure 60 mm[Hg] Maurice Fulton MD Work Phone: [facility] 11-29-2023 08:44-0400 Heart rate 61 /min Maurice Fulton MD Work Phone: [facility] 11-29-2023 08:44-0400 SaO2% (BldA) [Mass fraction] 94 % Maurice Fulton MD Work Phone: [facility] 11-29-2023 08:44-0400 Systolic blood pressure 116 mm[Hg] Maurice Fulton MD Work Phone: [facility] 07-11-2023 10:20-0400 Body height 182.88 cm PERIPATOLOGIST-C Aissatou Webster PERIPATOLOGIST Work Phone: [facility] 07-11-2023 10:20-0400 Body mass index (BMI) [Ratio] 36.3 kg/m2 PERIPATOLOGIST-C Aissatou Webstre PERIPATOLOGIST Work Phone: [facility] 07-11-2023 10:20-0400 Body temperature 98.1 [degF] PERIPATOLOGIST-C Aissatou Webster PERIPATOLOGIST Work Phone: [facility] 07-11-2023 10:20-0400 Body weight 121.73 kg PERIPATOLOGIST-C Aissatou Webster PERIPATOLOGIST Work Phone: [facility] 07-11-2023 10:20-0400 Diastolic blood pressure 70 mm[Hg] PERIPATOLOGIST-C Aissatou Webster PERIPATOLOGIST Work Phone: [facility] 07-11-2023 10:20-0400 Heart rate 57 /min PERIPATOLOGIST-Gelacio Webster PERIPATOLOGIST Work Phone: [facility] 07-11-2023 10:20-0400 Respiratory rate 18 /min PERIPATOLOGIST-C Aissatou Webster PERIPATOLOGIST Work Phone: [facility] 07-11-2023 10:20-0400 SaO2% (BldA) [Mass fraction] 93 % PERIPATOLOGIST-C Aissatou Webster PERIPATOLOGIST Work Phone: [facility] 07-11-2023 10:20-0400 Systolic blood pressure 122 mm[Hg] PERIPATOLOGIST-C Aissatou Webster PERIPATOLOGIST Work Phone: [facility] 03-03-2023 14:20-0500 Heart rate 94 /min PERIPATOLOGIST-C Aissatou Webster PERIPATOLOGIST Work Phone: [facility] 03-03-2023 14:20-0500 Respiratory rate 16 /min PERIPATOLOGIST-C Aissatou Webster PERIPATOLOGIST Work Phone: [facility] 03-03-2023 14:00-0500 Diastolic blood pressure 74 mm[Hg] PERIPATOLOGIST-C Aissatou Webster PERIPATOLOGIST Work Phone: [facility] 03-03-2023 14:00-0500 SaO2% (BldA) [Mass fraction] 95 % PERIPATOLOGIST-C Aissatou Webster PERIPATOLOGIST Work Phone: [facility] 03-03-2023 14:00-0500 Systolic blood pressure 141 mm[Hg] PERIPATOLOGIST-C Aissatou Webster PERIPATOLOGIST Work Phone: [facility] 03-03-2023 10:20-0500 Body height 182.88 cm PERIPATOLOGIST-C Aissatou Webster PERIPATOLOGIST Work Phone: [facility] 03-03-2023 10:20-0500 Body mass index (BMI) [Ratio] 35.4 kg/m2 PERIPATOLOGIST-C Aissatou Webster PERIPATOLOGIST Work Phone: [facility] 03-03-2023 10:20-0500 Body temperature 98.3 [degF] PERIPATOLOGIST-C Aissatou Webster PERIPATOLOGIST Work Phone: [facility] 03-03-2023 10:20-0500 Body weight 118.6 kg PERIPATOLOGIST-C Aissatou Webster PERIPATOLOGIST Work Phone: [facility] 02-24-2023 10:15-0500 Body mass index (BMI) [Ratio] 35.3 kg/m2 PERIPATOLOGIST-C Aissatou Webster PERIPATOLOGIST Work Phone: [facility] 02-24-2023 10:15-0500 Body temperature 97.7 [degF] PERIPATOLOGIST-C Aissatou Webster PERIPATOLOGIST Work Phone: [facility] 02-24-2023 10:15-0500 Body weight 118.16 kg PERIPATOLOGIST-C Aissatou Webster PERIPATOLOGIST Work Phone: [facility] 02-24-2023 10:15-0500 Diastolic blood pressure 69 mm[Hg] PERIPATOLOGIST-C Aissatou Webster PERIPATOLOGIST Work Phone: [facility] 02-24-2023 10:15-0500 Heart rate 66 /min PERIPATOLOGIST-C Aissatou Webster PERIPATOLOGIST Work Phone: [facility] 02-24-2023 10:15-0500 Respiratory rate 16 /min PERIPATOLOGIST-C Aissatou Webster PERIPATOLOGIST Work Phone: [facility] 02-24-2023 10:15-0500 SaO2% (BldA) [Mass fraction] 93 % PERIPATOLOGIST-C Aissatou Webster PERIPATOLOGIST Work Phone: [facility] 02-24-2023 10:15-0500 Systolic blood pressure 106 mm[Hg] PERIPATOLOGIST-C Aissatou Webster PERIPATOLOGIST Work Phone: [facility] 01-18-2023 09:30-0500 Body temperature 97.4 [degF] PERIPATOLOGIST-C Aissatou Webster PERIPATOLOGIST Work Phone: [facility] 01-18-2023 09:30-0500 Diastolic blood pressure 69 mm[Hg] PERIPATOLOGIST-C Aissatou Webster PERIPATOLOGIST Work Phone: [facility] 01-18-2023 09:30-0500 Heart rate 71 /min PERIPATOLOGIST-C Aissatou Webster PERIPATOLOGIST Work Phone: [facility] 01-18-2023 09:30-0500 Respiratory rate 16 /min PERIPATOLOGIST-C Aissatou Webster PERIPATOLOGIST Work Phone: [facility] 01-18-2023 09:30-0500 SaO2% (BldA) [Mass fraction] 98 % PERIPATOLOGIST-C Aissatou Webster PERIPATOLOGIST Work Phone: [facility] 01-18-2023 09:30-0500 Systolic blood pressure 115 mm[Hg] PERIPATOLOGIST-C Aissatou Webster PERIPATOLOGIST Work Phone: [facility] 01-18-2023 06:23-0500 Body mass index (BMI) [Ratio] 35.3 kg/m2 PERIPATOLOGIST-C Aissatou Webster PERIPATOLOGIST Work Phone: [facility] 01-18-2023 06:23-0500 Body weight 118.1 kg PERIPATOLOGIST-C Aissatou Webster PERIPATOLOGIST Work Phone: [facility] 11-18-2022 08:22-0400 Body height 182.88 cm PERIPATOLOGIST-C Aissatou Webster PERIPATOLOGIST Work Phone: [facility] 11-18-2022 08:22-0400 Body mass index (BMI) [Ratio] 34.9 kg/m2 PERIPATOLOGIST-C Aissatou Webster PERIPATOLOGIST Work Phone: [facility] 11-18-2022 08:22-0400 Body weight 117.02 kg PERIPATOLOGIST-C Aissatou Webster PERIPATOLOGIST Work Phone: [facility] 11-18-2022 08:22-0400 Diastolic blood pressure 80 mm[Hg] PERIPATOLOGIST-C Aissatou Webster PERIPATOLOGIST Work Phone: [facility] 11-18-2022 08:22-0400 Heart rate 65 /min PERIPATOLOGIST-C Aissatou Webster PERIPATOLOGIST Work Phone: [facility] 11-18-2022 08:22-0400 Respiratory rate 18 /min PERIPATOLOGIST-C Aissatou Webster PERIPATOLOGIST Work Phone: [facility] 11-18-2022 08:22-0400 Systolic blood pressure 134 mm[Hg] PERIPATOLOGIST-C Aissatou Webster PERIPATOLOGIST Work Phone: [facility] 08-26-2022 13:43-0400 Body height 182.88 cm PERIPATOLOGIST-C Aissatou Webster PERIPATOLOGIST Work Phone: [facility] 08-26-2022 13:43-0400 Body mass index (BMI) [Ratio] 34.4 kg/m2 PERIPATOLOGIST-C Aissatou Webster PERIPATOLOGIST Work Phone: [facility] 08-26-2022 13:43-0400 Body temperature 97.5 [degF] PERIPATOLOGIST-C Aissatou Webster PERIPATOLOGIST Work Phone: [facility] 08-26-2022 13:43-0400 Body weight 114.98 kg PERIPATOLOGIST-C Aissatou Webster PERIPATOLOGIST Work Phone: [facility] 08-26-2022 13:43-0400 Diastolic blood pressure 64 mm[Hg] PERIPATOLOGIST-C Aissatou Webster PERIPATOLOGIST Work Phone: [facility] 08-26-2022 13:43-0400 Heart rate 94 /min PERIPATOLOGIST-C Aissatou Webster PERIPATOLOGIST Work Phone: [facility] 08-26-2022 13:43-0400 Respiratory rate 16 /min PERIPATOLOGIST-C Aissatou Webster PERIPATOLOGIST Work Phone: [facility] 08-26-2022 13:43-0400 SaO2% (BldA) [Mass fraction] 94 % PERIPATOLOGIST-C Aissatou Webster PERIPATOLOGIST Work Phone: [facility] 08-26-2022 13:43-0400 Systolic blood pressure 100 mm[Hg] PERIPATOLOGIST-C Aissatou Webster PERIPATOLOGIST Work Phone: [facility] 07-14-2022 10:25-0400 Body height 182.88 cm PERIPATOLOGIST-C Aissatou Webster PERIPATOLOGIST Work Phone: [facility] 07-14-2022 10:23-0400 Body mass index (BMI) [Ratio] 33.7 kg/m2 PERIPATOLOGIST-C Aissatou Webster PERIPATOLOGIST Work Phone: [facility] 07-14-2022 10:23-0400 Body temperature 97.1 [degF] PERIPATOLOGIST-C Aissatou Webster PERIPATOLOGIST Work Phone: [facility] 07-14-2022 10:23-0400 Body weight 113 kg PERIPATOLOGIST-C Aissatou Webster PERIPATOLOGIST Work Phone: [facility] 07-14-2022 10:23-0400 Diastolic blood pressure 75 mm[Hg] PERIPATOLOGIST-C Aissatou Webster PERIPATOLOGIST Work Phone: [facility] 07-14-2022 10:23-0400 Heart rate 58 /min PERIPATOLOGIST-C Aissatou Webster PERIPATOLOGIST Work Phone: [facility] 07-14-2022 10:23-0400 Respiratory rate 18 /min PERIPATOLOGIST-C Aissatou Webster PERIPATOLOGIST Work Phone: [facility] 07-14-2022 10:23-0400 SaO2% (BldA) [Mass fraction] 97 % PERIPATOLOGIST-C Aissatou Webster PERIPATOLOGIST Work Phone: [facility] 07-14-2022 10:23-0400 Systolic blood pressure 136 mm[Hg] PERIPATOLOGIST-C Aissatou Webster PERIPATOLOGIST Work Phone: [facility] 07-07-2022 10:39-0400 Body mass index (BMI) [Ratio] 34.2 kg/m2 PERIPATOLOGIST-C Aissatou Webster PERIPATOLOGIST Work Phone: [facility] 07-07-2022 10:39-0400 Body temperature 97.5 [degF] PERIPATOLOGIST-C Aissatou Webster PERIPATOLOGIST Work Phone: [facility] 07-07-2022 10:39-0400 Body weight 114.44 kg PERIPATOLOGIST-C Aissatou Webster PERIPATOLOGIST Work Phone: [facility] 07-07-2022 10:39-0400 Diastolic blood pressure 73 mm[Hg] PERIPATOLOGIST-C Aissatou Webster PERIPATOLOGIST Work Phone: [facility] 07-07-2022 10:39-0400 Heart rate 61 /min PERIPATOLOGIST-C Aissatou Webster PERIPATOLOGIST Work Phone: [facility] 07-07-2022 10:39-0400 Respiratory rate 18 /min PERIPATOLOGIST-C Aissatou Webster PERIPATOLOGIST Work Phone: [facility] 07-07-2022 10:39-0400 SaO2% (BldA) [Mass fraction] 95 % PERIPATOLOGIST-C Aissatou Webster PERIPATOLOGIST Work Phone: [facility] 07-07-2022 10:39-0400 Systolic blood pressure 120 mm[Hg] PERIPATOLOGIST-C Aissatou Webster PERIPATOLOGIST Work Phone: [facility] 06-30-2022 10:42-0400 Body mass index (BMI) [Ratio] 33.9 kg/m2 PERIPATOLOGIST-C Aissatou Webster PERIPATOLOGIST Work Phone: [facility] 06-30-2022 10:42-0400 Body temperature 97.4 [degF] PERIPATOLOGIST-C Aissatou Webster PERIPATOLOGIST Work Phone: [facility] 06-30-2022 10:42-0400 Body weight 113.51 kg PERIPATOLOGIST-C Aissatou Webster PERIPATOLOGIST Work Phone: [facility] 06-30-2022 10:42-0400 Diastolic blood pressure 71 mm[Hg] PERIPATOLOGIST-C Aissatou Webster PERIPATOLOGIST Work Phone: [facility] 06-30-2022 10:42-0400 Heart rate 57 /min PERIPATOLOGIST-C Aissatou Webster PERIPATOLOGIST Work Phone: [facility] 06-30-2022 10:42-0400 Respiratory rate 18 /min PERIPATOLOGIST-C Aissatou Webster PERIPATOLOGIST Work Phone: [facility] 06-30-2022 10:42-0400 SaO2% (BldA) [Mass fraction] 93 % PERIPATOLOGIST-C Aissatou Webster PERIPATOLOGIST Work Phone: [facility] 06-30-2022 10:42-0400 Systolic blood pressure 112 mm[Hg] PERIPATOLOGIST-C Aissatou Webster PERIPATOLOGIST Work Phone: [facility] 06-23-2022 11:03-0400 Body mass index (BMI) [Ratio] 34 kg/m2 PERIPATOLOGIST-C Aissatou Webster PERIPATOLOGIST Work Phone: [facility] 06-23-2022 11:03-0400 Body temperature 97.5 [degF] PERIPATOLOGIST-C Aissatou Webster PERIPATOLOGIST Work Phone: [facility] 06-23-2022 11:03-0400 Body weight 113.96 kg PERIPATOLOGIST-C Aissatou Webster PERIPATOLOGIST Work Phone: [facility] 06-23-2022 11:03-0400 Diastolic blood pressure 73 mm[Hg] PERIPATOLOGIST-C Aissatou Webster PERIPATOLOGIST Work Phone: [facility] 06-23-2022 11:03-0400 Heart rate 54 /min PERIPATOLOGIST-C Aissatou Webster PERIPATOLOGIST Work Phone: [facility] 06-23-2022 11:03-0400 Respiratory rate 16 /min PERIPATOLOGIST-C Aissatou Webster PERIPATOLOGIST Work Phone: [facility] 06-23-2022 11:03-0400 SaO2% (BldA) [Mass fraction] 94 % PERIPATOLOGIST-C Aisstaou Webster PERIPATOLOGIST Work Phone: [facility] 06-23-2022 11:03-0400 Systolic blood pressure 135 mm[Hg] PERIPATOLOGIST-C Aissatou Webster PERIPATOLOGIST Work Phone: [facility] 06-16-2022 10:46-0400 Body mass index (BMI) [Ratio] 33.5 kg/m2 PERIPATOLOGIST-C Aissatou Webster PERIPATOLOGIST Work Phone: [facility] 06-16-2022 10:46-0400 Body temperature 97.4 [degF] PERIPATOLOGIST-C Aissatou Webster PERIPATOLOGIST Work Phone: [facility] 06-16-2022 10:46-0400 Body weight 112.26 kg PERIPATOLOGIST-C Aissatou Webster PERIPATOLOGIST Work Phone: [facility] 06-16-2022 10:46-0400 Diastolic blood pressure 83 mm[Hg] PERIPATOLOGIST-C Aissatou Webster PERIPATOLOGIST Work Phone: [facility] 06-16-2022 10:46-0400 Heart rate 55 /min PERIPATOLOGIST-C Aissatou Webster PERIPATOLOGIST Work Phone: [facility] 06-16-2022 10:46-0400 Respiratory rate 16 /min PERIPATOLOGIST-C Aissatou Webster PERIPATOLOGIST Work Phone: [facility] 06-16-2022 10:46-0400 SaO2% (BldA) [Mass fraction] 95 % PERIPATOLOGIST-C Aissatou Webster PERIPATOLOGIST Work Phone: [facility] 06-16-2022 10:46-0400 Systolic blood pressure 146 mm[Hg] PERIPATOLOGIST-C Aissatou Webster PERIPATOLOGIST Work Phone: [facility] 06-09-2022 10:52-0400 Body mass index (BMI) [Ratio] 33.7 kg/m2 PERIPATOLOGIST-C Aissatou Webster PERIPATOLOGIST Work Phone: [facility] 06-09-2022 10:52-0400 Body temperature 97.1 [degF] PERIPATOLOGIST-C Aissatou Webster PERIPATOLOGIST Work Phone: [facility] 06-09-2022 10:52-0400 Body weight 113.05 kg PERIPATOLOGIST-C Aissatou Webster PERIPATOLOGIST Work Phone: [facility] 06-09-2022 10:52-0400 Diastolic blood pressure 71 mm[Hg] PERIPATOLOGIST-C Aissatou Webster PERIPATOLOGIST Work Phone: [facility] 06-09-2022 10:52-0400 Heart rate 58 /min PERIPATOLOGIST-C Aissatou Avilason PERIPATOLOGIST Work Phone: [facility] 06-09-2022 10:52-0400 Respiratory rate 16 /min PERIPATOLOGIST-C Aissatou Avilason PERIPATOLOGIST Work Phone: [facility] 06-09-2022 10:52-0400 SaO2% (BldA) [Mass fraction] 94 % PERIPATOLOGIST-C Aissatou Webster PERIPATOLOGIST Work Phone: [facility] 06-09-2022 10:52-0400 Systolic blood pressure 143 mm[Hg] PERIPATOLOGIST-C Aissatou Webster PERIPATOLOGIST Work Phone: [facility] 06-02-2022 11:17-0400 Body height 182.88 cm PERIPATOLOGIST-C Aissatou Webster PERIPATOLOGIST Work Phone: [facility] 06-02-2022 11:15-0400 Body mass index (BMI) [Ratio] 34.2 kg/m2 PERIPATOLOGIST-C Aissatou Webster PERIPATOLOGIST Work Phone: [facility] 06-02-2022 11:15-0400 Body temperature 97.5 [degF] PERIPATOLOGIST-C Aissatou Webster PERIPATOLOGIST Work Phone: [facility] 06-02-2022 11:15-0400 Body weight 114.44 kg PERIPATOLOGIST-C Aissatou Webster PERIPATOLOGIST Work Phone: [facility] 06-02-2022 11:15-0400 Diastolic blood pressure 76 mm[Hg] PERIPATOLOGIST-C Aissatou Webster PERIPATOLOGIST Work Phone: [facility] 06-02-2022 11:15-0400 Heart rate 57 /min PERIPATOLOGIST-C Aissatou Webster PERIPATOLOGIST Work Phone: [facility] 06-02-2022 11:15-0400 Respiratory rate 16 /min PERIPATOLOGIST-C Aissatou Webster PERIPATOLOGIST Work Phone: [facility] 06-02-2022 11:15-0400 SaO2% (BldA) [Mass fraction] 96 % PERIPATOLOGIST-C Aissatou Webster PERIPATOLOGIST Work Phone: [facility] 06-02-2022 11:15-0400 Systolic blood pressure 155 mm[Hg] PERIPATOLOGIST-C Aissatou Webster PERIPATOLOGIST Work Phone: [facility] 05-19-2022 09:22-0400 Diastolic Blood Pressure Non-Invasive 78 1 LAURIE QUINONES DO [facility] 05-19-2022 09:22-0400 Heart rate 65 /min LAURIE QUINONES DO [facility] 05-19-2022 09:22-0400 Respiratory rate 15 /min LAURIE STACIE DO [facility] 05-19-2022 09:22-0400 Systolic Blood Pressure Non-Invasive 144 1 LAURIE STACIE DO [facility] 05-19-2022 09:15-0400 Diastolic Blood Pressure Non-Invasive 80 1 LAURIE STACIE DO [facility] 05-19-2022 09:15-0400 Heart rate 71 /min LAURIE STACIE DO [facility] 05-19-2022 09:15-0400 Respiratory rate 15 /min LAURIE STACIE DO [facility] 05-19-2022 09:15-0400 Systolic Blood Pressure Non-Invasive 127 1 LAURIE STACIE DO [facility] 05-19-2022 09:04-0400 Body temperature 96.8 [degF] LAURIE STACIE DO [facility] 05-19-2022 09:04-0400 Diastolic Blood Pressure Non-Invasive 74 1 LAURIE STACIE DO [facility] 05-19-2022 09:04-0400 Heart rate 67 /min LAURIE STACIE DO [facility] 05-19-2022 09:04-0400 Respiratory rate 15 /min LAURIE STACIE DO [facility] 05-19-2022 09:04-0400 Systolic Blood Pressure Non-Invasive 112 1 LAURIE STACIE DO [facility] 05-19-2022 08:55-0400 Respiratory Rate - Anes 14 br/min LAURIE STACIE DO [facility] 05-19-2022 08:50-0400 Respiratory Rate - Anes 17 br/min LAURIE STACIE DO [facility] 05-19-2022 08:43-0400 Body temperature 97.52 [degF] LAURIE STACIE DO [facility] 05-19-2022 08:43-0400 Heart rate 74 /min LAURIE STACIE DO [facility] 05-19-2022 08:38-0400 Body height 183.5 cm LAURIE STACIE DO [facility] 05-19-2022 08:38-0400 Body weight 115.9 kg LAURIE STACIE DO [facility] 05-19-2022 08:38-0400 Body weight 34.42 kg/m2 LAURIE STACIE DO [facility] 05-18-2022 08:27-0400 Body mass index (BMI) [Ratio] 34.2 kg/m2 PERIPATOLOGIST-C Aissatou Webster PERIPATOLOGIST Work Phone: [facility] 05-18-2022 08:27-0400 Body weight 114.3 kg PERIPATOLOGIST-C Aissatou Webster PERIPATOLOGIST Work Phone: [facility] 05-18-2022 08:27-0400 Diastolic blood pressure 79 mm[Hg] PERIPATOLOGIST-C Aissatou Webster PERIPATOLOGIST Work Phone: [facility] 05-18-2022 08:27-0400 Heart rate 52 /min PERIPATOLOGIST-C Aissatou Webster PERIPATOLOGIST Work Phone: [facility] 05-18-2022 08:27-0400 Respiratory rate 18 /min PERIPATOLOGIST-C Aissatou Webster PERIPATOLOGIST Work Phone: [facility] 05-18-2022 08:27-0400 SaO2% (BldA) [Mass fraction] 94 % PERIPATOLOGIST-C Aissatou Webster PERIPATOLOGIST Work Phone: [facility] 05-18-2022 08:27-0400 Systolic blood pressure 140 mm[Hg] PERIPATOLOGIST-C Aissatou Webster PERIPATOLOGIST Work Phone: [facility] 04-22-2022 13:23-0500 Body mass index (BMI) [Ratio] 34.1 kg/m2 PERIPATOLOGIST-C Aissatou Webster PERIPATOLOGIST Work Phone: [facility] 04-22-2022 13:23-0500 Body temperature 96.5 [degF] PERIPATOLOGIST-C Aissatou Webster PERIPATOLOGIST Work Phone: [facility] 04-22-2022 13:23-0500 Body weight 114.07 kg PERIPATOLOGIST-C Aissatou Webster PERIPATOLOGIST Work Phone: [facility] 04-22-2022 13:23-0500 Diastolic blood pressure 71 mm[Hg] PERIPATOLOGIST-C Aissatou Webster PERIPATOLOGIST Work Phone: [facility] 04-22-2022 13:23-0500 Heart rate 77 /min PERIPATOLOGIST-C Aissatou Webster PERIPATOLOGIST Work Phone: [facility] 04-22-2022 13:23-0500 Respiratory rate 16 /min PERIPATOLOGIST-C Aissatou Webster PERIPATOLOGIST Work Phone: [facility] 04-22-2022 13:23-0500 SaO2% (BldA) [Mass fraction] 94 % PERIPATOLOGIST-C Aissatou Webster PERIPATOLOGIST Work Phone: [facility] 04-22-2022 13:23-0500 Systolic blood pressure 147 mm[Hg] PERIPATOLOGIST-C Aissatou Webster PERIPATOLOGIST Work Phone: [facility] 04-08-2022 09:38-0500 Body mass index (BMI) [Ratio] 34.3 kg/m2 PERIPATOLOGIST-C Aissatou Webster PERIPATOLOGIST Work Phone: [facility] 04-08-2022 09:38-0500 Body temperature 97.1 [degF] PERIPATOLOGIST-C Aissatou Webster PERIPATOLOGIST Work Phone: [facility] 04-08-2022 09:38-0500 Body weight 114.87 kg PERIPATOLOGIST-C Aissatou Webster PERIPATOLOGIST Work Phone: [facility] 04-08-2022 09:38-0500 Diastolic blood pressure 67 mm[Hg] PERIPATOLOGIST-C Aissatou Webster PERIPATOLOGIST Work Phone: [facility] 04-08-2022 09:38-0500 Heart rate 53 /min PERIPATOLOGIST-C Aissatou Webster PERIPATOLOGIST Work Phone: [facility] 04-08-2022 09:38-0500 Respiratory rate 16 /min PERIPATOLOGIST-C Aissatou Webster PERIPATOLOGIST Work Phone: [facility] 04-08-2022 09:38-0500 SaO2% (BldA) [Mass fraction] 96 % PERIPATOLOGIST-C Aissatou Webster PERIPATOLOGIST Work Phone: [facility] 04-08-2022 09:38-0500 Systolic blood pressure 117 mm[Hg] PERIPATOLOGIST-C Aissatou Webster PERIPATOLOGIST Work Phone: [facility] 12-20-2021 10:59-0400 Body temperature 98.5 [degF] PERIPATOLOGIST-C Aissatou Webster PERIPATOLOGIST Work Phone: [facility] 12-20-2021 10:59-0400 Diastolic blood pressure 80 mm[Hg] PERIPATOLOGIST-C Aissatou Webster PERIPATOLOGIST Work Phone: [facility] 12-20-2021 10:59-0400 Heart rate 62 /min PERIPATOLOGIST-C Aissatou Webster PERIPATOLOGIST Work Phone: [facility] 12-20-2021 10:59-0400 Respiratory rate 18 /min PERIPATOLOGIST-C Aissatou Webster PERIPATOLOGIST Work Phone: [facility] 12-20-2021 10:59-0400 SaO2% (BldA) [Mass fraction] 96 % PERIPATOLOGIST-C Aissatou Webster PERIPATOLOGIST Work Phone: [facility] 12-20-2021 10:59-0400 Systolic blood pressure 150 mm[Hg] PERIPATOLOGIST-C Aissatou Webster PERIPATOLOGIST Work Phone: [facility] 12-19-2021 16:40-0400 Inhaled oxygen flow rate 4 L/min PERIPATOLOGIST-C Aissatou Webster PERIPATOLOGIST Work Phone: [facility] 12-18-2021 16:13-0400 Body height 182.88 cm PERIPATOLOGIST-C Aissatou Webster PERIPATOLOGIST Work Phone: [facility] 12-18-2021 16:13-0400 Body mass index (BMI) [Ratio] 35 kg/m2 PERIPATOLOGIST-C Aissatou Webster PERIPATOLOGIST Work Phone: [facility] 12-18-2021 16:13-0400 Body weight 117.16 kg PERIPATOLOGIST-C Aissatou Webster PERIPATOLOGIST Work Phone: [facility] 11-10-2021 09:28-0400 Body height 182.88 cm PERIPATOLOGIST-C Aissatou Webster PERIPATOLOGIST Work Phone: [facility] Work Phone: 11-10-2021 09:28-0400 Body mass index (BMI) [Ratio] 33.3 kg/m2 PERIPATOLOGIST-C Aissatou Webster PERIPATOLOGIST Work Phone: [facility] Work Phone: 11-10-2021 09:28-0400 Body weight 111.58 kg PERIPATOLOGIST-C Aissatou Webster PERIPATOLOGIST Work Phone: [facility] Work Phone: 11-10-2021 09:28-0400 Diastolic blood pressure 62 mm[Hg] PERIPATOLOGIST-C Aissatou Webster PERIPATOLOGIST Work Phone: [facility] Work Phone: 11-10-2021 09:28-0400 Heart rate 55 /min PERIPATOLOGIST-C Aissatou Webster PERIPATOLOGIST Work Phone: [facility] Work Phone: 11-10-2021 09:28-0400 Respiratory rate 18 /min PERIPATOLOGIST-C Aissatou Webster PERIPATOLOGIST Work Phone: [facility] Work Phone: 11-10-2021 09:28-0400 Systolic blood pressure 122 mm[Hg] PERIPATOLOGIST-C Aissatou Webster PERIPATOLOGIST Work Phone: [facility] Work Phone: 09-28-2021 13:19-0400 Body height 182.88 cm PERIPATOLOGIST-C Aissatou Webster PERIPATOLOGIST Work Phone: [facility] Work Phone: 09-28-2021 13:19-0400 Body mass index (BMI) [Ratio] 32.9 kg/m2 PERIPATOLOGIST-C Aissatou Webster PERIPATOLOGIST Work Phone: [facility] Work Phone: 09-28-2021 13:19-0400 Body weight 110.22 kg PERIPATOLOGIST-C Aissatou Webster PERIPATOLOGIST Work Phone: [facility] Work Phone: 09-28-2021 13:19-0400 Diastolic blood pressure 60 mm[Hg] PERIPATOLOGIST-C Aissatou Webster PERIPATOLOGIST Work Phone: [facility] Work Phone: 09-28-2021 13:19-0400 Heart rate 76 /min PERIPATOLOGIST-C Aissatou Webster PERIPATOLOGIST Work Phone: [facility] Work Phone: 09-28-2021 13:19-0400 Respiratory rate 16 /min PERIPATOLOGIST-C Aissatou Webster PERIPATOLOGIST Work Phone: [facility] Work Phone: 09-28-2021 13:19-0400 Systolic blood pressure 132 mm[Hg] PERIPATOLOGIST-C Aissatou Webster PERIPATOLOGIST Work Phone: [facility] Work Phone: Encounters Encounter Date Encounter Type Care Provider Facility Start: 12-21-2024 ambulatory Marsha NOYOLA Facility:[facility] Start: 11-23-2024 End: 11-23-2024 Patient encounter procedure Marsha NOYOLA -[facility] Work Phone: Start: 11-23-2024 End: 11-23-2024 ambulatory Aissatou Webster PERIPATOLOGIST-C Work Phone: -[facility] Start: 11-07-2024 ambulatory [facility] Facility: [facility] Start: 11-07-2024 End: 11-07-2024 Subsequent hospital visit by physician Natasha Mccrary MD Work Phone: [facility] Endoscopy Comment on above: BRBPR (bright red bl ood per rectum) [K62.5] Start: 10-31-2024 End: 10-31-2024 [place]mission to [place] [id number] Work Phone: Pre Anesthesia Start: 10-31-2024 End: 10-31-2024 Anesthesia consultation [place] [id number] Work Phone: Pre Anesthesia Comment on above: Migraine without sta tus migrainosus, not intractable, unspecified migraine type (Primary Dx); History of prostate cancer; BMI 36.0-36.9,adult; Obstructive sleep apnea (adult) (pediatric); Atrial fibrillation, unspecified type (HCC); Essential hypertension; Right bundle branch block; 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 Start: 10-31-2024 Encounter for other preprocedural examination COURTNEY FLOWERS [facility] Start: 10-26-2024 End: 10-26-2024 Telephone encounter Dena Whipple RN Pre Anesthesia Comment on above: Preparations For Carmine woody Start: 10-26-2024 End: 10-26-2024 Patient encounter procedure Courtney Flowers TRIAGE RN.SISAL PICKER Work Phone: General Surgery Comment on above: BRBPR (bright red bl ood per rectum) (Primary Dx); Melena; Heart burn Start: 10-26-2024 End: 10-26-2024 ambulatory COURTNEY FLOWERS Facility:[facility] Start: 10-22-2024 End: 10-22-2024 ambulatory Aissatou Webster PERIPATOLOGIST-C Work Phone: -Laboratory Start: 10-22-2024 End: 10-22-[address] Aneudy Santiago MD -Laboratory Work Phone: Start: 10-22-2024 End: 10-22-2024 ambulatory Aissatou Webster PERIPATOLOGIST Facility:[facility] Start: 09-24-2024 End: 09-24-2024 ambulatory Aissatou Webster PERIPATOLOGIST-C Work Phone: -Pulmonary Services/Neurology Start: 09-24-2024 End: 09-24-2024 Patient encounter procedure Keshawn Saeed PA -Pulmonary Services/Neurology Work Phone: Start: 09-24-2024 End: 09-24-2024 ambulatory Drwe Dickinson Facility:[facility] [place] Start: 09-21-2024 End: 09-21-2024 ambulatory Aissatou Webster PERIPATOLOGIST-C Work Phone: -Laboratory Start: 09-21-2024 End: 09-21-2024 Patient encounter procedure Keshawn Saeed PA -Laboratory Work Phone: Start: 09-21-2024 End: 09-21-2024 ambulatory Keshawn Saeed Facility:[facility] Start: 08-21-2024 Non-patient / Non-visit Dr. Riley NARVAEZ -[facility] Work Phone: Start: 08-21-2024 End: 08-21-2024 ambulatory Aissatou Webster PERIPATOLOGIST-C Work Phone: [facility] Work Phone: Start: 08-21-2024 End: 08-21-2024 Patient encounter procedure Keshawn Saeed PA -Pulmonary Services/Neurology Work Phone: Start: 08-21-2024 End: 08-21-2024 ambulatory Aissatou Webster PERIPATOLOGIST Facility:[facility] Start: 08-01-2024 End: 08-01-2024 Patient encounter procedure Keshawn Saeed [facility] Work Phone: Start: 08-01-2024 End: 08-01-2024 ambulatory Aissatou Webster PERIPATOLOGIST-C Work Phone: [facility] Work Phone: Start: 07-10-2024 End: 07-10-[address] Yoav Olivares DO [facility] Work Phone: Start: 07-10-2024 End: 07-10-2024 ambulatory Yoav Olivares Facility:[facility] Start: 07-10-2024 End: 07-10-2024 Patient encounter procedure Keshawn NOYOLA [facility] Work Phone: Start: 07-10-2024 End: 07-10-2024 ambulatory Aissatou Webster PERIPATOLOGIST Facility:[facility] Start: 07-06-2024 End: 07-06-[address] Yoav Olivares DO [facility] Work Phone: Start: 07-06-2024 End: 07-06-2024 ambulatory Yoav Olivares Facility:[facility] Start: 06-25-2024 End: 06-25-2024 Patient encounter procedure Marsha NOYOLA [facility] Work Phone: Start: 06-25-2024 End: 06-25-2024 ambulatory Aissatou Webster PERIPATOLOGIST Facility:[facility] [place] Start: 06-21-2024 End: 06-21-2024 Emergency department patient visit Aissatou Webster PERIPATOLOGIST-C Work Phone: -Emergency Department Work Phone: Start: 06-13-2024 End: 06-17-2024 ambulatory AISSATOU WEBSTER TRIAGE RN-SISAL PICKER Facility:[facility] Start: 06-06-2024 Non-patient / Non-visit Dr. Lin PR -[facility] Work Phone: Start: 06-06-2024 End: 06-06-2024 ambulatory Aissatou Webster PERIPATOLOGIST-C Work Phone: [facility] Work Phone: Start: 06-06-2024 End: 06-06-2024 Patient encounter procedure Marsha NOYOLA -Pulmonary Services/Neurology Work Phone: Start: 06-06-2024 End: 06-06-2024 ambulatory Aissatou Webster PERIPATOLOGIST Facility:[facility] Start: 05-25-2024 End: 05-25-2024 Patient encounter procedure Marsha NOYOLA -[facility] Work Phone: Start: 05-25-2024 End: 05-25-2024 ambulatory Aissatou Webster NP Facility:[facility] [place] [facility] Start: 04-17-2024 End: 04-17-2024 Patient encounter procedure Ling Beck -Laboratory Work Phone: Start: 04-17-2024 End: 04-17-2024 ambulatory Ling Beck Facility:[facility] Start: 01-09-2024 End: 01-09-2024 ambulatory Yoav Marshall Facility:[facility] [place] Start: 01-06-2024 End: 01-06-2024 ambulatory [facility] Facility:[facility] Start: 11-29-2023 End: 11-29-2023 Office outpatient new 45 minutes Maurice Fulton MD Work Phone: [facility] [place] [facility] Comment on above: Paroxysmal atrial fi brillation (HCC) Start: 11-29-2023 End: 11-29-2023 ambulatory MAURICE FULTON [facility] Start: 11-28-2023 End: 11-28-2023 ambulatory AISSATOU WEBSTER TRIAGE RN-SISAL PICKER Facility:[facility] Start: 11-28-2023 End: 11-28-2023 Patient encounter procedure AISSATOU WEBSTER TRIAGE RN-SISAL PICKER [facility] Start: 07-11-2023 End: 07-11-2023 Patient encounter procedure PERIPATOLOGIST-C Aissatou Webster PERIPATOLOGIST Work Phone: [facility] Work Phone: Start: 07-08-2023 End: 07-08-2023 ambulatory PERIPATOLOGIST-C Aissatou Webster PERIPATOLOGIST Work Phone: [facility] Work Phone: Start: 07-08-2023 End: 07-08-2023 Patient encounter procedure PERIPATOLOGIST-C Aissatou Webster PERIPATOLOGIST Work Phone: [facility]-Laboratory Work Phone: Start: 04-27-2023 Non-patient / Non-visit PERIPATOLOGIST-C Jimena Webster PERIPATOLOGIST Work Phone: [facility] Work Phone: Start: 04-18-2023 End: 04-18-2023 ambulatory PERIPATOLOGIST-C Aissatou Webster PERIPATOLOGIST Work Phone: [facility] Work Phone: Start: 04-18-2023 End: 04-18-2023 Patient encounter procedure PERIPATOLOGIST-C Aissatou Webster PERIPATOLOGIST Work Phone: [facility]-Pulmonary Services/Neurology Work Phone: Start: 04-11-2023 End: 04-11-2023 ambulatory PERIPATOLOGIST-C Aissatou Webster PERIPATOLOGIST Work Phone: [facility] Work Phone: Start: 04-11-2023 End: 04-11-2023 Patient encounter procedure PERIPATOLOGIST-C Aissatou Webster PERIPATOLOGIST [facility] Start: 03-03-2023 End: 03-03-2023 Emergency department patient visit PERIPATOLOGIST-C Aissatou Webster PERIPATOLOGIST Work Phone: [facility]-Emergency Department Work Phone: Start: 02-24-2023 End: 02-24-2023 Patient encounter procedure PERIPATOLOGIST-C Aissatou Webster PERIPATOLOGIST Work Phone: [facility] Work Phone: Start: 02-07-2023 End: 02-08-2023 ambulatory AISSATOU WEBSTER TRIAGE RN-SISAL PICKER Facility:[facility] Start: 01-18-2023 End: 01-18-2023 Admission to same day surgery center PERIPATOLOGIST-C Aissatou Webster PERIPATOLOGIST Work Phone: [facility]-Surgical Day Care Start: 01-12-2023 End: 01-12-2023 Non-patient / Non-visit PERIPATOLOGIST-C Aissatou Webster PERIPATOLOGIST [facility] Work [facility]: Start: 01-05-2023 End: 01-05-2023 ambulatory PERIPATOLOGIST-C Aissatou Webster PERIPATOLOGIST Work Phone: [facility] Work Phone: Start: 01-05-2023 End: 01-05-2023 Patient encounter procedure PERIPATOLOGIST-C Aissatou Webster PERIPATOLOGIST Work Phone: [facility]-Laboratory Work Phone: Start: 11-30-2022 Non-patient / Non-visit PERIPATOLOGIST-C Jimena Webster PERIPATOLOGIST Work Phone: [facility] Work Phone: Start: 11-22-2022 End: 11-23-2022 ambulatory AISSATOU WEBSTER TRIAGE RN-SISAL PICKER Facility:[facility] Start: 11-22-2022 End: 11-22-2022 Patient encounter procedure AISSATOU WEBSTER TRIAGE RN-SISAL PICKER [facility] Start: 11-18-2022 End: 11-18-2022 Patient encounter procedure PERIPATOLOGIST-C Aissatou Webster PERIPATOLOGIST [facility] Phone[facility] Work Phone: Start: 09-30-2022 End: 10-19-2022 ambulatory AISSATOU WEBSTER TRIAGE RN-SISAL PICKER Facility:[facility] Start: 09-30-2022 End: 10-19-2022 Physical therapy management AISSATOU WEBSTER TRIAGE RN-SISAL PICKER [facility] Start: 09-29-2022 End: 09-29-2022 ambulatory PERIPATOLOGIST-C Aissatou Webster PERIPATOLOGIST Work Phone: [facility] Work Phone: Start: 09-29-2022 End: 09-29-2022 Patient encounter procedure PERIPATOLOGIST-C Aissatou Webster PERIPATOLOGIST Work Phone: [facility]-Laboratory Work Phone: Start: 09-22-2022 End: 09-23-2022 ambulatory AISSATOU WEBSTER TRIAGE RN-SISAL PICKER Facility:[facility] Start: 09-22-2022 End: 09-22-2022 Patient encounter procedure AISSATOU WEBSTER TRIAGE RN-SISAL PICKER [facility] Start: 09-03-2022 Non-patient / Non-visit PERIPATOLOGIST-C Jimena Webster PERIPATOLOGIST Work Phone: [facility] Work Phone: Start: 09-01-2022 End: 09-01-2022 ambulatory PERIPATOLOGIST-C Aissatou Webster PERIPATOLOGIST Work Phone: [facility] Work Phone: Start: 09-01-2022 End: 09-01-2022 Patient encounter procedure PERIPATOLOGIST-C Aissatou Webster PERIPATOLOGIST Work Phone: [facility]-Pulmonary Services/Neurology Work Phone: Start: 08-27-2022 End: 08-27-2022 ambulatory PERIPATOLOGIST-C Aissatou Webster PERIPATOLOGIST Work Phone: [facility] Work Phone: Start: 08-27-2022 End: 08-27-2022 Patient encounter procedure PERIPATOLOGIST-C Aissatou Webster PERIPATOLOGIST Work Phone: [facility]-Laboratory Work Phone: Start: 08-26-2022 End: 08-26-2022 Patient encounter procedure PERIPATOLOGIST-C Aissatou Webster PERIPATOLOGIST Work Phone: [facility] Work Phone: Start: 08-18-2022 End: 08-18-2022 ambulatory PERIPATOLOGIST-C Aissatou Webster PERIPATOLOGIST Work Phone: [facility] Work Phone: Start: 08-18-2022 End: 08-18-2022 Patient encounter procedure PERIPATOLOGIST-C Aissatou Webster PERIPATOLOGIST Work Phone: [facility] Start: 07-26-2022 End: 07-26-2022 ambulatory PERIPATOLOGIST-C Aissatou Webster PERIPATOLOGIST Work Phone: [facility] Work Phone: Start: 07-26-2022 End: 07-26-2022 Patient encounter procedure PERIPATOLOGIST-C Aissatou Webster PERIPATOLOGIST Work Phone: [facility]-Laboratory Start: 07-15-2022 Registered Recurring PERIPATOLOGIST-C Yoel Webster PERIPATOLOGIST Work Phone: [facility]-Radiation Oncology Start: 07-14-2022 End: 07-14-2022 Patient encounter procedure PERIPATOLOGIST-C Aissatou Webster PERIPATOLOGIST Work Phone: [facility] Start: 07-07-2022 End: 07-07-2022 Patient encounter procedure PERIPATOLOGIST-C Aissatou Webster PERIPATOLOGIST Work Phone: [facility] Start: 06-30-2022 End: 06-30-2022 Patient encounter procedure PERIPATOLOGIST-C Aissatou Webster PERIPATOLOGIST Work Phone: [facility] Start: 06-23-2022 End: 06-23-2022 Patient encounter procedure PERIPATOLOGIST-C Aissatou Webster PERIPATOLOGIST Work Phone: [facility] Start: 06-16-2022 End: 06-16-2022 Patient encounter procedure PERIPATOLOGIST-C Aissatou Webster PERIPATOLOGIST Work Phone: [facility] Start: 06-09-2022 End: 06-09-2022 Patient encounter procedure PERIPATOLOGIST-C Aissatou Webster PERIPATOLOGIST Work Phone: [facility] Start: 06-04-2022 Registered Recurring PERIPATOLOGIST-C Yoel Webster PERIPATOLOGIST Work Phone: [facility]-Radiation Oncology Start: 06-02-2022 End: 06-02-2022 Patient encounter procedure PERIPATOLOGIST-C Aissatou Webster PERIPATOLOGIST Work Phone: [facility] Start: 06-01-2022 End: 06-01-2022 ambulatory PERIPATOLOGIST-C Aissatou Webster PERIPATOLOGIST Work Phone: [facility] Work Phone: Start: 06-01-2022 End: 06-01-2022 Patient encounter procedure PERIPATOLOGIST-C Aissatou Webster PERIPATOLOGIST Work Phone: [facility]-Laboratory Start: 05-28-2022 Non-patient / Non-visit PERIPATOLOGIST-C Jimena Webster PERIPATOLOGIST Work Phone: [facility] Start: 05-27-2022 Non-patient / Non-visit PERIPATOLOGIST-C Jimena Webster PERIPATOLOGIST Work Phone: [facility] Start: 05-20-2022 Non-patient / Non-visit PERIPATOLOGIST-C Jimena Webster PERIPATOLOGIST Work Phone: [facility] Start: 05-19-2022 End: 05-20-2022 ambulatory AISSATOU WEBSTER TRIAGE RN-SISAL PICKER Facility:[facility] Start: 05-19-2022 End: 05-19-2022 Minor Procedure LAURIE QUINONES DO [facility] Start: 05-18-2022 End: 05-18-2022 Patient encounter procedure PERIPATOLOGIST-C Aissatou Webster PERIPATOLOGIST Work Phone: [facility] Start: 04-22-2022 End: 04-22-2022 Patient encounter procedure PERIPATOLOGIST-C Aissatou Webster PERIPATOLOGIST Work Phone: [facility] Start: 04-08-2022 End: 04-08-2022 Patient encounter procedure PERIPATOLOGIST-C Aissatou Webster PERIPATOLOGIST Work Phone: [facility] Start: 03-24-2022 End: 03-24-2022 ambulatory [facility] Work Phone: Start: 03-24-2022 End: 03-24-2022 Patient encounter procedure [facility]-Laboratory Start: 12-18-2021 End: 12-20-2021 Evaluation and management of inpatient PERIPATOLOGIST-C Aissatou Webster PERIPATOLOGIST Work Phone: [facility]-Medical Surgical 3 Start: 12-18-2021 End: 12-20-2021 observation encounter PERIPATOLOGIST-C Aissatou Webster PERIPATOLOGIST Work Phone: [facility] Work Phone: Start: 11-10-2021 End: 11-10-2021 Patient encounter procedure PERIPATOLOGIST-C Aissatou Webster PERIPATOLOGIST Work Phone: [facility] Heart [facility] Start: 10-15-2021 Non-patient / Non-visit PERIPATOLOGIST-C Jimena Webster PERIPATOLOGIST Work Phone: [facility] Start: 10-15-2021 End: 10-15-2021 Patient encounter procedure PERIPATOLOGIST-C Aissatou Webster PERIPATOLOGIST Work Phone: [facility]-Cardiovascula r Services Start: 09-30-2021 End: 09-30-2021 Patient encounter procedure AISSATOU WEBSTER TRIAGE RN-SISAL PICKER [facility] Start: 09-29-2021 Non-patient / Non-visit PERIPATOLOGIST-C Jimena Webster PERIPATOLOGIST Work Phone: [facility] Start: 09-29-2021 End: 09-29-2021 Patient encounter procedure PERIPATOLOGIST-Gelacio Webster PERIPATOLOGIST Work Phone: [facility]-Cardiovascula r Services Start: 09-29-2021 Non-patient / Non-visit PERIPATOLOGIST-C Jimena Webster PERIPATOLOGIST Work Phone: [facility] Start: 09-28-2021 Patient encounter status PERIPATOLOGIST-C Aissatou Webster PERIPATOLOGIST Work Phone: [facility] Start: 09-28-2021 End: 09-28-2021 Admission to same day surgery center PERIPATOLOGIST-C Aissatou Webster PERIPATOLOGIST Work Phone: [facility] Heart [facility] Start: 09-28-2021 End: 09-28-2021 Patient encounter procedure PERIPATOLOGIST-Gelacio Webster PERIPATOLOGIST Work Phone: [facility] Start: 09-24-2021 EKG myocardial ischemia PERIPATOLOGIST-C Jimena Webster PERIPATOLOGIST Work Phone: [facility] Start: 09-23-2021 End: 09-23-2021 ambulatory PERIPATOLOGIST-C Aissatou Webster PERIPATOLOGIST Work Phone: [facility] Work Phone: Start: 09-23-2021 End: 09-23-2021 Patient encounter procedure PERIPATOLOGIST-Gelacio Webster PERIPATOLOGIST Work Phone: [facility]-Pre-Admission Testing Start: 09-23-2021 End: 09-29-2021 Non-patient / Non-visit PERIPATOLOGIST-Gelacio Webster PERIPATOLOGIST Work Phone: [facility] Start: 09-02-2021 End: 09-02-2021 [facility] Start: 08-24-2021 End: 08-24-2021 Patient encounter procedure AISSATOU WEBSTER TRIAGE RN-SISAL PICKER [facility] Start: 08-13-2021 End: 08-13-2021 Patient encounter procedure [facility]Laboratory, Specimen Start: 08-05-2021 End: 08-05-2021 Patient encounter procedure [facility]MRI - [facility] Start: 07-21-2021 End: 07-21-2021 Patient encounter procedure [facility] Procedures Date Procedure Procedure Detail Performing Clinician Start: 11-07-2024 Colonoscopy flx dx w/collj spec when pfrmd Courtney Sharpir TRIAGE RN.SISAL PICKER Work Phone: Start: 11-07-2024 Esophagogastroduodenoscopy transoral diagnostic Courtney Tien TRIAGE RN.SISAL PICKER Work Phone: Start: 11-07-2024 Colonoscopy Natasha Mccrary MD Work Phone: Start: 10-22-2024 Assay of prostate specific antigen total Aissatou Webster PERIPATOLOGIST-C Work Phone: Comment on above: This test was performed using the Datameer tPSA method. Measured values of a patient sample can vary depending on the testing procedure used. PSA values determined on patient samples by different testing procedures cannot be used interchangeably. If there is a change in PSA assays while monitoring therapy, sequential testing should be performed to confirm baseline values. Start: 07-10-2024 Evaluation of diagnostic study results Aissatou Avilalonnie PERIPATOLOGIST-C Work Phone: Start: 07-06-2024 Assay of prostate specific antigen total Aissatou Webster PERIPATOLOGIST-C Work Phone: Comment on above: This test was performed using the Datameer tPSA method. Measured values of a patient sample can vary depending on the testing procedure used. PSA values determined on patient samples by different testing procedures cannot be used interchangeably. If there is a change in PSA assays while monitoring therapy, sequential testing should be performed to confirm baseline values. Start: 06-25-2024 Evaluation of diagnostic study results Aissatou Avilalonnie PERIPATOLOGIST-C Work Phone: Start: 06-21-2024 Estimated creatinine clearance Aissatou oropeza PERIPATOLOGIST-C Work Phone: Start: 04-17-2024 Assay of prostate specific antigen total Aissatou Webster PERIPATOLOGIST-C Work Phone: Comment on above: This test was performed using the TPSA a ssay method for the[employer] chemistry system. Values obtained with differentassay methods cannot be used interchangably.When changing PSA assays in the course of monitoring apatient, additional sequential testing should be carriedout to confirm baseline values. Start: 11-29-2023 Ecg routine ecg w/least 12 lds trcg only w/o i&r Maurice Fulton MD Work Phone: Start: 03-03-2023 CT of head without contrast PERIPATOLOGIST-C Aissatou Webster PERIPATOLOGIST Work Phone: Start: 08-18-2022 CT of soft tissues of neck with contrast PERIPATOLOGIST-C Aissatou Webster PERIPATOLOGIST Work Phone: Start: 05-19-2022 Colonoscopy LAURIEKenny BEACHY DO Start: 04-20-2022 Positron emission tomography with computed tomography PERIPATOLOGIST-C Aissatou Webster PERIPATOLOGIST Work Phone: Start: 12-18-2021 Lap Robotic Prostatectomy (Not Applicable) PERIPATOLOGIST-C Aissatou Webster PERIPATOLOGIST Work Phone: Start: 09-02-2021 Radionuclide whole body bone study Start: 08-05-2021 MRI of pelvis with contrast Cardiac catheterization YOEL WEBSTER TRIAGE RN-SISAL PICKER Catheter procedure AISSATOU OROPEZA TRIAGE RN-SISAL PICKER Hand structure (body structure) AISSATOU WEBSTER TRIAGE RN-SISAL PICKER Comment on above: left hand I&D Hernia of abdominal cavity (disorder) AISSATOU WEBSTER TRIAGE RN-SISAL PICKER Comment on above: umbilical Tonsillectomy AISSATOU WEBSTER TRIAGE RN-SISAL PICKER Vasectomy AISSATOU WEBSTER TRIAGE RN-SISAL PICKER Plan of Treatment Date Care Activity Detail Author Start: 12-24-2026 DTaP/Tdap/Td Vaccine s (2 - Td or Tdap) DTaP/Tdap/Td Vaccines (2 - Td or Tdap) [facility] Start: 12-24-2026 Urine microalbumin profile DTaP,Tdap,Td Vaccine (2 - Td or Tdap) [facility] Start: 11-07-2025 Screening for malign ant neoplasm of colon [facility] Start: 11-23-2024 Radionuclide imaging of perfusion of myocardium under exercise stress [facility] Start: 11-23-2024 End: 11-23-2024 Evaluation of diagnostic study results [facility] Start: 11-07-2024 End: 11-07-2024 Patient encounter procedure 11/07/2024 3:45 PM EDT Appointment [facility] [address] [place] [address] [facility] Start: 11-05-2024 Influenza vaccination Influenza Vacc ine (#1) [facility] Start: 10-31-2024 End: 10-31-2024 Anesthesia consultation 10/31/2024 8:00 AM EDT PAT Pre Anesthesia [address] [place] [address] 1, [place] [place] [address] [place] [address] DOS: 11/07/2024 [facility] EGD/COLONOSCOPY Pre Anesthesia Comment on above: DOS: 11/07/[address] [facility] NA EGD/COLONOSCOPY Start: 08-01-2024 Evaluation of diagno stic study results [facility] Start: 06-21-2024 [facility] Start: 06-21-2024 [facility] Start: 03-07-2024 Advance Directive Discussion Advance Directive Discussion [facility] Start: 01-28-2024 RSV Vaccine (1 - 1-d ose 75+ series) RSV Vaccine (1 - 1-dose 75+ series) [facility] Start: 11-06-2023 COVID-19 Vaccine ( season) COVID-19 Vaccine ( season) [facility] Start: 11-06-2023 Influenza vaccination Influenza Vacc ine (#1) [facility] Start: 03-07-2023 Medicare Advantage Annual Wellness Visit Medicare Advantage Annual Wellness Visit [facility] Start: 03-03-2023 [facility] Start: 01-18-2023 Anes integ musc & nr v head neck&posterior trunk ANESTH HEAD/NECK/PTRUNK [facility] Start: 01-18-2023 Excision tumor soft tiss face/scalp subq 2 cm/> EXC FACE LES SBQ 2 CM/> [facility] Start: 01-18-2023 Patient discharge [facility] Start: 07-07-2022 Patient referral [facility] Work Phone: Start: 12-20-2021 Patient discharge [facility] Start: 12-19-2021 Following clinical pathway protocol [facility] Start: 12-18-2021 Application of intermittent pneumatic compression device [facility] Start: 12-18-2021 Following clinical pathway protocol [facility] Start: 12-18-2021 Anes xtrprtl lwr abd w/urinary tract rad prstect ANESTH REMOVAL OF PROSTATE [facility] Start: 12-18-2021 Laps prostect retrop ubic rad w/nrv sparing robot LAPS SURG [id number] RPBIC RAD [facility] Start: 12-18-2021 Admission procedure [facility] Start: 12-18-2021 Deep breathing and coughing exercises [facility] Start: 12-18-2021 Measuring intake and output [facility] Start: 12-18-2021 Patient education [facility] Start: 12-18-2021 Provision of activit y privileges [facility] Start: 12-18-2021 Taking patient vital signs [facility] Start: 12-18-2021 Vital signs measurements [facility] Start: 12-18-2021 [facility] Start: 2009 RSV Immunization age d 60 or older (1 - 1-dose 60+ series) RSV Immunization aged 60 or older (1 - 1-dose 60+ series) [facility] Start: 1994 Diabetes Screening Diabetes Screenin g [facility] Start: 1994 Screening for malign ant neoplasm of colon [facility] Start: 01-28-1984 Lipid panel Lipid Screening [facility] Start: 1967 Annual PCP Team Retirement Administrator thanh Disease Visit Annual PCP Team Chronic Disease Visit [facility] Start: 1967 Anxiety Screening Anxiety Screening [facility] Start: 1967 Creatinine measurement Serum Creatin ine [facility] Start: 1967 Depression Screening Depression Scre ening [facility] Start: 1967 Diabetes mellitus screening Diabetes Screening [facility] Start: 1967 Hepatitis B surface antibody level LDL Cholesterol [facility] Start: 1967 Hepatitis C screening Hepatitis C Sc reening [facility] Start: 1961 Depression Screening Depression Scre ing [facility] Start: 1949 Lipid panel Lipid Panel [facility] Start: 1949 Screening for malign ant neoplasm of colon [facility] 24 Hour ECG [facility] Work Phone: Ambulatory ECG [facility] ECG 12 lead ECG 12 lead CV E CG Routine Paroxysmal atrial fibrillation (HCC) 11/29/2023 8:46 AM EDT [facility] Work Phone: End: 10-26-2025 EGD DIAGNOSTIC EGD DIAGNOSTIC Endoscopy Routine Melena Heart burn 1 Occurrences starting 10/26/2024 until 10/26/2025 [facility] Comment on above: 1 Occurrences starti ng 10/26/2024 until 10/26/2025 End: 10-26-2025 Flexible sigmoidoscopy study COLONOSCOPY DIAGNOSTIC Endoscopy Routine BRBPR (bright red blood per rectum) Melena 1 Occurrences starting 10/26/2024 until 10/26/2025 [facility] Work Phone: Comment on above: 1 Occurrences starti ng 10/26/2024 until 10/26/2025 Hepatic function panel [facility] Measurement of respiratory function [facility] Patient Education [facility] Work Phone: Patient referral [facility] Work Phone: Positron emission tomography with computed tomography [facility] Prostate specific antigen measurement [facility] Prostate specific antigen measurement [facility] Radionuclide imaging of perfusion of myocardium under exercise stress [facility] Work Phone: Thyroid stimulating hormone measurement [facility] Tissue Pathology bio psy report [facility] Work Phone: Comment on above: Release Upon Orderin g for 1 Occurrences starting 11/07/2024, 1 completed [facility] Immunizations Immunization Date Immunization Notes Care Provider Tapan pelayo 12-06-2023 influenza virus vacc ine, unspecified formulation Courtney Flowers TRIAGE RN.SISAL PICKER Work Phone: [facility] 05-26-2023 influenza virus vacc ine, unspecified formulation Maurice Fulton MD Work Phone: [facility] 01-22-2022 influenza virus vacc ine, unspecified formulation AISSATOU WEBSTER TRIAGE RN-SISAL PICKER [facility] 12-16-2020 influenza virus vacc ine, unspecified formulation AISSATOU WEBSTER TRIAGE RN-SISAL PICKER [facility] 06-26-2020 SARS-CoV-2 (COVID-19 ) mRNA-1273 vaccine AISSATOU WEBSTER TRIAGE RN-SISAL PICKER [facility] Comment on above: Result Comment: 2021: [id number] 05-29-2020 SARS-CoV-2 (COVID-19 ) mRNA-1273 vaccine AISSATOU WEBSTER TRIAGE RN-SISAL PICKER [facility] Comment on above: Result Comment: 2021: [id number] 11-21-2019 influenza virus vacc ine, unspecified formulation AISSATOU WEBSTER TRIAGE RN-SISAL PICKER [facility] 11-21-2019 pneumococcal polysaccharide vaccine, 23 valent AISSATOU WEBSTER TRIAGE RN-SISAL PICKER [facility] 12-18-2018 influenza virus vacc ine, unspecified formulation AISSATOU WEBSTER TRIAGE RN-SISAL PICKER [facility] 09-11-2018 zoster vaccine recombinant AISSATOU WEBSTER TRIAGE RN-SISAL PICKER [facility] 07-10-2018 zoster vaccine recombinant AISSATOU WEBSTER TRIAGE RN-[employer] [facility] 12-21-2017 influenza virus vacc ine, unspecified formulation AISSATOU WEBSTER TRIAGE RN-SISAL PICKER [facility] 12-24-2016 tetanus toxoid, redu adriano diphtheria toxoid, and acellular pertussis vaccine, adsorbed AISSATOU WEBSTER TRIAGE RN[employer] [facility] 10-25-2016 pneumococcal conjuga te vaccine, 13 valent AISSATOU WEBSTER TRIAGE RN[employer] [facility] 12-10-2015 influenza virus vacc ine, unspecified formulation AISSATOU WEBSTER TRIAGE RN-SISAL PICKER [facility] 01-17-2015 influenza virus vacc ine, unspecified formulation AISSATOU WEBSTER TRIAGE RN-SISAL PICKER [facility] 01-07-2014 influenza virus vacc ine, unspecified formulation AISSATOU WEBSTER TRIAGE RN-SISAL PICKER [facility] 12-20-2012 influenza virus vacc ine, unspecified formulation AISSATOU WEBSTER TRIAGE RN-SISAL PICKER [facility] Payers Date Payer Category Payer Private Health Insurance [id number] 2024 Unknown [id number] 2024 Unknown [id number] 2024 Unknown [id number] 2024 Medicare (Managed Care) MMO [employer] DV[employer] HMO [id number] 2024 Self-pay [id number] 2023 Medicare [id number] 2023 Medicare [employer]ARE MEDICA RE SUM[employer]ARE SECURE [id number] 2023-Present [address] [place] [address] Medicare HMO [id number] 2022 Medicare [id number] 2014 Medicare [id number] 1949 Unknown [id number] ..[id number]. 2.627 1949 Unknown [id number]. 2.627 1949 Unknown [id number] 2.840.1.046762.3.579. 2.627 1949 Unknown [id number] 2.840.1.228313.3.579. 2.62 1949 Unknown [id number] 2.16840.1.055972.3.579. 2.62 1949 Unknown [id number] 2.840.1.068134.3.579. 2.62 1949 Unknown [id number] 2.840.1.290118.3.579. 2.62 Unknown [id number] Unknown [id number] 2.16840.1.074178.3.579. 2.462 Unknown [id number] 2.840.1.984663.3.579. 2.462 Unknown [id number] 2.840.1.393083.3.579. 2.462 Unknown [id number] 2.840.1.618098.3.579. 2.462 Unknown [id number] 2.840.1.138528.3.579. 2.462 Unknown [id number] 2.840.1.108307.3.579. 2.462 Unknown [id number] 2.840.1.181545.3.579. 2.462 Unknown [id number] 2.840.1.667798.3.579. 2.462 Unknown [id number] 2.16840.1.595734.3.579. 2.462 Unknown [id number] 2.16840.1.076067.3.579. 2.462 Unknown [id number] 2.16840.1.450994.3.579. 2.462 Unknown [id number] 2.840.1.846357.3.579. 2.462 Unknown [id number] 2.16.840.1.993719.3.579. 2.462 Unknown [id number] 2.16.840.1.947393.3.579. 2.462 Unknown [id number] 2.16.840.1.085869.3.579. 2.462 Unknown [id number] 2.16.840.1.700517.3.579. 2.462 Unknown [id number] 2.16.840.1.530938.3.579. 2.462 Unknown [id number] 2.16.840.1.690637.3.579. 2.462 Unknown [id number] 2.16.840.1.163499.3.579. 2.462 Unknown [id number] 2.16.840.1.379232.3.579. 2.462 Social History Date Type Detail Facility Start: 06-23-2015 End: 03-03-2023 Tobacco smoking status TNIS Unknown if ever smoked [facility] Start: 1950 Sex Assigned At Male W [facility] Work Phone: Start: 06-05-2020 End: 06-21-2024 Tobacco smoking status Never smoked tobacco (finding) [facility] Start: 10-31-2023 End: 10-31-2024 Tobacco use and exposure Smokeless tobacco non-user [facility] Start: 10-31-2023 Alcoholic beverage intake Not Asked [facility] Start: 10-31-2023 End: 10-26-2024 History of Social function [facility] Start: 10-31-2023 End: 10-26-2024 Tobacco use panel [facility] Start: 10-31-2023 [facility] Start: 1950 Sex assigned at Not on file [facility] Start: 06-09-2024 End: 06-21-2024 Sex Male (finding) [facility] Start: 09-29-2023 End: 10-31-2024 Alcoholic beverage intake Current non-drinker of alcohol (finding) [facility] Start: 02-06-2012 National Score (1-10 0), lower number is lower risk 64 [facility] Start: 09-29-2023 Alcohol Comment holidays/speci al occasions only [facility] Start: 10-26-2024 Gender identity Identifies as male gender (finding) [facility] Start: 10-26-2024 Sexual orientation Heterosexual (khadra stubbs) [facility] Medical Equipment Procedure Code Equipment Code Equipment Origin al Text Equipment Identifier Dates CLIP,HEMTERRYCK VIVEK FDA Start: 12-18-2021 CLIP,HEMENCOMPASS HEALTHJOSE VIVEK FDA Start: 12-18-2021 CLIP,HEMENCOMPASS HEALTHJOSE VIVEK FDA Start: 12-18-2021 CLIP,HEMENCOMPASS HEALTHJOSE VIVEK FDA Start: 12-18-2021 Ligation clip, synthetic polymer, non-bioabsorbable ([id number] FDA Start: 12-18-2021 CLIP,HEMTERRYJOSE VIVEK FDA Start: 12-18-2021 [facility] FDA Start: 12-18-2021 [facility] V[facility] FDA Start: 12-18-2021 CLIP,HEMENCOMPASS HEALTHJOSE VIVEK FDA Start: 12-18-2021 [facility] VIVEK FDA Start: 12-18-2021 CLIP[facility] VIVEK FDA Start: 12-18-2021 CLIP,HEMTERRYJOSE VIVEK FDA Start: 12-18-2021 CLIP,HEMENCOMPASS HEALTHJOSE VIVEK FDA Start: 12-18-2021 [facility] VIVEK FDA Start: 12-18-2021 CLIP,[facility] VIVEK FDA Start: 12-18-2021 CLIP,HEMOLOCK VIVEK FDA Start: 12-18-2021 CLIP,HEMOLOCK VIVEK FDA Start: 12-18-2021 CLIP,HEMENCOMPASS HEALTHCK VIVEK FDA Start: 12-18-2021 [facility] VIVEK FDA Start: 12-18-2021 CLIP[facility] VIVEK FDA Start: 12-18-2021 [facility] FDA Start: 12-18-2021 CLIP,HEMOLOCK LG WECK FDA [...] LG WECK FDA Start: 12-18-2021 CLIP,HEMOLOCK LG WEJOSE FDA Start: 12-18-2021 CLIP,HEMOLOCK LG WEJOSE FDA Start: 12-18-2021 CLIP,HEMOLOCK LG WECK FDA Start: 12-18-2021 CLIP,HEMOLOCK LG WECK FDA Start: 12-18-2021 CLIP,HEMOLOCK LG WEJOSE FDA Start: 12-18-2021 CLIP,HEMOLOCK LG WECK FDA Start: 12-18-2021 CLIP,HEMOLOCK LG WECK FDA Start: 12-18-2021 CLIP,HEMOLOCK LG WECK FDA Start: 12-18-2021 CLIP,HEMOLOCK LG WECK FDA Start: 12-18-2021 CLIP,HEMOLOCK LG WECK FDA Start: 12-18-2021 CLIP,HEMOLOCK LG WECK FDA Start: 12-18-2021 CLIP,HEMOLOCK LG WECK FDA Start: 12-18-2021 Goals Date Patient Goal Desired Activity /State Personal health goal Functional Status Date Assessment Result Facility 09-30-2022 [...] increased lateral hip pain on the L [facility] 05-19-2022 Functional Status Maintained [facility] 12-20-2021 Functional status Ambulates;Up ad rip [facility] Work Phone: Mental Status Date Assessment Result Facility 06-21-2024 Cognitive function Voice/Name [facility] Work Phone: 03-03-2023 Cognitive function Level Of Cons ciousness Awake;Alert;Appropriate;Follow s Commands [facility] Work Phone: 01-18-2023 Cognitive function Voice/Name [facility] Work Phone: 05-19-2022 Mental Status Oriented x [address] [facility] 12-19-2021 Cognitive function Voice/Name [facility] Work Phone: Clinical Notes 09-30-2021 to 11-23-2024 Natasha Mccrary MD - 11/07/2024 1:30 PM EDTNatasha Mccrary MD - 11/07/2024 1:30 PM EDTPatient Eugenie Odonnell APRN.CNP - 10/31/2024 8:15 AM EDT Note Date & Type Note Facility 11-23-2024 Progress note [facility] 11-07-2024 Attending History and physical note UPDATED HISTORY AND PHYSICAL EXAMINATION SERVICE DATE: 11/07/2024 SERVICE TIME: 13:11 Participation of a fellow, resident, medical student, or advanced practice provider student in performing the sensitive examination was discussed with the patient or authorized sales representative wire rope. The patient or authorized sales representative wire rope has agreed to proceed with the sensitive examination. PHYSICAL EXAM MUST BE COMPLETED ON ADMISSION The History and Physical (completed in the past 30 days) has been reviewed and the patient has been examined. The contents accurately reflect the patient's condition with the following additions or revisions since the H&P was completed. Examination indicates no changes. This H&P can be found in the Electronic Medical Record. SIGNATURE: Natasha Mccrary MD PATIENT NAME: Ramiro Lala DATE: November 07, 2024 TIME: 1:14 PM Source Note - Eugenie Velez APRN.SISAL PICKER - 10/31/2024 8:15 AM EDT Images from the original note were not included. [facility] HISTORY AND PHYSICAL EXAMINATION SERVICE DATE: 10/31/2024 SERVICE TIME: 8:58 AM PRIMARY CARE PHYSICIAN: Aissatou Webster APRN.SISAL PICKER Assessment Patient has the following medical conditions which may affect vicky-operative course: 1. Migraine without status migrainosus, not intractable, unspecified migraine type (G43.909) - Frequent migraines with visual aura; most recent episode on Tuesday. - Advised to avoid known triggers, including dark chocolate. 2. History of prostate cancer (Z85.46) - Completed 34 sessions of radiation therapy one year ago; in remission for one year. - S/p prostatectomy 3. BMI 36.0-36.9,adult (Z68.36) - Body mass index is 36.35 kg/m . 4. Obstructive sleep apnea (adult) (pediatric) (G47.33) - Continues to use CPAP. 5. Atrial fibrillation, unspecified type (HCC) (I48.91) 6. Essential hypertension (I10) 7. Right bundle branch block (I45.10) 8. Coronary artery disease involving agdaagux coronary artery of agdaagux heart without angina pectoris (I25.10) - Paroxysmal atrial fibrillation, symptomatic approximately 52% of the time, with episodes lasting up to half a day and causing significant dyspnea and activity limitation. - On Eliquis; instructed to hold Eliquis for 48 hours prior to upcoming procedure. - History of right bundle branch block on prior EKG. - Mild coronary artery disease; left heart catheterization on 09/28/2021 showed no significant disease. - Follow-up with cardiology nurse practitioner next month - sees [facility]. 9. Gastroesophageal reflux disease without esophagitis (K21.9) - Recent episode of acid reflux approximately 10 days ago, coinciding with hematochezia. - Advised to monitor dietary triggers. 10. Stage 2 chronic kidney disease (N18.2) - Mild, stable; [facility] showed normal hemoglobin. ANESTHESIA FINDINGS: Intubation History: No history of difficult intubation. No abnormal airway history Significant Anesthesia Considerations: none Airway History: No history of difficult airway No abnormal airway history [place] Activity Status Index: METS: Walk indoors, such as around the house (1.75 METs) Do light work around the house, such as dusting or washing dishes (2.70 METs) Take care of self; that is eating, dressing, bathing, using the toilet (2.75 METs) Walk a block or two on level ground (2.75 METs) Do moderate work around the house, such as vacuuming, sweeping floors, or carrying in groceries (3.50 METs) Do yardwork, such as raking leaves, weeding, or pushing a power mower (4.50 METs) Climb a flight of stairs or walk up a hill (5.50 METs) Participate in moderate recreational activites, such as golf, bowling, dancing, doubles tennis, or throwing a baseball or football (6.00 METs) DASI Score: 29.45 Patient denies any chest pain or undue shortness of breath with the above physical activity. Clinical Frailty Scale: 3. Well, with treated comorbid disease STOP-Bang Score: STOP-Bang Score: (+ ernesto on cpap) [id number] Score: Age: >=75 Sex: male CHF history: No Hypertension history: Yes Stroke/TIA/thromboembolism history: No Vascular disease history: No Diabetes history: No [id number] Score: 3 I - PHYSICAL EVALUATION AIRWAY Patient intubated: No. Tracheostomy tube not present Mallampati: II. TM distance: >3 FB. Neck ROM: full ROM without neurological symptoms. Mouth openin FB. Short neck: no. Thick neck: no [place] present: yes DENTAL Dental findings: missing tooth/teeth. II - ANESTHESIA PLAN Anesthetic plan additional comments: *PACC/TCI - anesthesia choice. Informed Consent Prepared for Surgery: optimally prepared for surgery, pending [see comment]. Per PACC guidelines, patient may hold Eliquis 2 days prior to procedure. CONSULTS: Patient does not require consults for optimization at this time Planned Anesthetic: anesthesia choice The Following Tests/Procedures Have Been Initiated: No orders of the defined types were placed in this encounter. REASON FOR VISIT: Ramiro Lala is a 74 year old male who is scheduled for * No surgery found * at the request of Dr. Courtney Flowers for consultation. My final recommendation will be communicated back to the requesting physician by way of shared medical record or letter. Subjective The patient has the following: COVID-19 Immunization Status This patient has no relevant Health Maintenance data. CHIEF COMPLAINT: pre op HPI: Ramiro Lala is a 74-year-old male with a history of prostate cancer, atrial fibrillation (AFib), and migraines, presenting for evaluation prior to an upcoming EGD and colonoscopy. Ramiro reports hematochezia, with both dark and bright red blood in the stool, though not in the past 5 days. He attributes the bleeding to potential scar tissue from 34 sessions of radiation therapy for prostate cancer, completed a year ago, with remission since then. He denies fever, abdominal pain, or acid reflux, except for a single episode of acid reflux approximately 10 days ago. He also denies anemia, easy bruising, or bleeding, and has no family history of clotting or bleeding disorders. REVIEW OF SYSTEMS: General: No weight loss, malaise or fevers. Neurological: Positive for: headaches. Negative for: delirium, dementia, impaired sensorium, peripheral neuropathy, seizures, TIA and strokes. Respiratory: Denies any shortness of breath, chest pain, wheezing, or cough. Positive for: obstructive sleep apnea. Negative for: asthma, bronchitis, COPD, current cough, bronchodilator used daily for the last 3 months, dyspnea, home oxygen, orthopnea, pneumonia within 6 weeks, tobacco use and URI < 2 weeks. Cardiovascular: Denies any heart palpitations today Denies edema, chest pain, shortness of breath, syncope, activity intolerance, or dizziness. Positive for: atrial fibrillation, CAD and hypertension Patient's last office visit with cannon fire direction specialist, Dr. Momo Alvarez, was 06/2024. The following tests and/or procedures were performed: cardiac catheterization, cardiac stress test and echocardiogram. The following tests and/or procedures were not performed: cardiac stents. Negative for: abdominal aortic aneurysm, AICD/PPM, angina, anticoagulation therapy, arrhythmia, chest pain, CHF, congenital heart defect, DVT/PE, hyperlipidemia, recent MD, murmur/valvular heart disease, PTCA, PVD, open heart surgery and valve surgery. GI: Positive for: GERD Negative for: abdominal pain, GI bleed <30 days, hepatitis, liver disease, nausea, vomiting and ETOH >2 drinks/day. : + stage 2 CKD Negative for: on dialysis, dysuria, flank pain, frequent urination, hematuria, renal failure and urinary tract infection. Endocrine: Negative for: diabetes mellitus, hyperthyroidism and hypothyroidism. Hematology: Negative for: anemia, bruises/bleeds easily, factor V Leiden, hemophilia, thrombocytopenia, von Willebrand disease, transfusion of at least 4 units within 72 hours prior to surgery and chronic anti-coagulation/platelet meds. Oncology: + hx of prostate cancer Negative for: CA metastasis, chemo within 30 days, disseminated cancer and radiotherapy within 90 days. Psych: No history of psychiatric symptoms or problems. Musculoskeletal: Negative for joint pain or swelling, back pain or muscle pain. Skin: Negative for lesions, rash and itching. Implanted Devices: No implanted devices. PAST MEDICAL HISTORY Diagnosis Date Adenocarcinoma (HCC) Atrial fibrillation (HCC) BPH with obstruction/lower urinary tract symptoms Essential hypertension Nonrheumatic mitral valve insufficiency Prostate disease Prostate enlargement SOBOE (shortness of breath on exertion) Syncope PAST SURGICAL HISTORY Procedure Laterality Date COLONOSCOPY 03/07/2007 NEEDS ONE EVERY 3 YEARS CYSTOSCOPY HEART CATHETERIZATION Left 04/12/2001 LAP UMBILICAL HERNIA REPAIR PAST SURGICAL HISTORY OF FATTY TUMOR REMOVED. PAST SURGICAL HISTORY OF LEFT HAND ACCIDENT, INJECTED WITH HYDRAULIC OIL. RADICAL PROSTATECTOMY REMOVE CATARACT, INSERT LENS, INTRACAPSUL TONSILLECTOMY AND ADENOIDECTOMY HX VASECTOMY FAMILY HISTORY Problem Relation Age of Onset Cancer Mother Breast Cancer Mother Hypertension Mother Cancer Father Prostate Cancer Father Hypertension Father Colon Cancer Brother Anesthesia Problems No Family History SOCIAL HISTORY[1] Prior to Admission medications as of 10/31/24 0814 Medication Sig Last Dose Taking digoxin (LANOXIN) 125 mcg (0.125 mg) tablet Take 125 mcg by mouth once daily. Yes oxybutynin ER (DITROPAN XL) 10 mg 24 hr tablet Take 10 mg by mouth once daily. Yes amLODIPine (NORVASC) 10 mg tablet Take 1 tablet by mouth every afternoon. Yes apixaban (ELIQUIS) 5 mg tab(s) Take 5 mg by mouth two times a day. Yes Cetirizine (ZYRTEC) 10 mg cap Take 1 capsule by mouth as needed. Yes furosemide (LASIX) 40 mg tablet Take 40 mg by mouth once daily. Yes MULTIVITAMIN ORAL Take 1 tablet by mouth once daily. Yes No medication comments found. ALLERGIES No Known Allergies Objective PHYSICAL EXAM: General: alert and oriented and healthy appearance. Pertinent negatives noted - not distressed. Skin: normal color, no rash or lesions. HEENT: EOM intact, pupils equal round and pupils reactive to light. Pertinent negatives noted - no carotid bruit. Cardiovascular: regular rate and rhythm, normal S1 and S2, no rub, murmurs, or gallop. Respiratory: normal breath sounds, no wheezes or crackles. No chest wall deformity or tenderness. Abdomen: bowel sounds present and soft. Pertinent negatives noted - not tender. Extremities: no deformity, no edema or tenderness, no joint swelling or clubbing. Neurological: normal cognition and motor skills. Gait normal. No weakness or sensory deficit. PAIN ASSESSMENT: VITALS: BP 118/62 Pulse 51 Temp (Src) 96.9 (Temporal) Resp 14 Ht 6' 0" (1.83m) Wt 268 lb (121.6kg) SpO2 95% BMI 36.34 kg/(m^2). Diagnostic tests reviewed for today's visit: Lab Value Units Date High Low HB No results within date range. HCT No results within date range. WBC No results within date range. PLT No results within date range. NA No results within date range. K No results within date range. GLUC No results within date range. BUN No results within date range. CREAT No results within date range. PTSEC No results within date range. INR No results within date range. APTT No results within date range. ALT No results within date range. AST No results within date range. TBILI No results within date range. TSH No results within date range. Lab Value Units Date High Low HCGQT No results within date range. UHCG No results within date range. HCG, BODY* No results within date range. Lab Value Units Date High Low ABORHD No results within date range. ABSCREEN No results within date range. No results found for: "HBA1C" No results found for this or any previous visit (from the past 8760 hours). No results found for this or any previous visit (from the past 70780 hours). Instructions Given to Patient: Instructions located in the after visit summary. Patient given verbal and written preop instructions and voices comprehension and compliance. Recording using [employer] Anywhere software for draft documentation of the visit was discussed with the patient/authorized sales representative wire rope; all questions welcomed and answered. Patient/authorized sales representative wire rope agreed to proceed SIGNATURE: Eugenie Velez APRN.CNP PATIENT NAME: Ramiro Lala DATE: October 31, 2024 TIME: 8:15 AM PAGER/CONTACT #: [1] Social History Tobacco Use Smoking status: Never Smokeless tobacco: Never Vaping Use Vaping status: Never Used Substance Use Topics Alcohol use: No Comment: holidays/special occasions only Drug use: No [facility] Work Phone: 11-07-2024 History and physical note UPDATED HISTORY AND PHYSICAL EXAMINATION SERVICE DATE: 11/07/2024 SERVICE TIME: 13:11 Participation of a fellow, resident, medical student, or advanced practice provider student in performing the sensitive examination was discussed with the patient or authorized sales representative wire rope. The patient or authorized sales representative wire rope has agreed to proceed with the sensitive examination. PHYSICAL EXAM MUST BE COMPLETED ON ADMISSION The History and Physical (completed in the past 30 days) has been reviewed and the patient has been examined. The contents accurately reflect the patient's condition with the following additions or revisions since the H&P was completed. Examination indicates no changes. This H&P can be found in the Electronic Medical Record. SIGNATURE: Natasha Mccrary MD PATIENT NAME: Ramiro Lala DATE: November 07, 2024 TIME: 1:14 PM Source Note - Eugenie Velez APRN.CNP - 10/31/2024 8:15 AM EDT Images from the original note were not included. [facility] HISTORY AND PHYSICAL EXAMINATION SERVICE DATE: 10/31/2024 SERVICE TIME: 8:58 AM PRIMARY CARE PHYSICIAN: Aissatou Webster APRN.SISAL PICKER Assessment Patient has the following medical conditions which may affect vicky-operative course: 1. Migraine without status migrainosus, not intractable, unspecified migraine type (G43.909) - Frequent migraines with visual aura; most recent episode on Tuesday. - Advised to avoid known triggers, including dark chocolate. 2. History of prostate cancer (Z85.46) - Completed 34 sessions of radiation therapy one year ago; in remission for one year. - S/p prostatectomy 3. BMI 36.0-36.9,adult (Z68.36) - Body mass index is 36.35 kg/m . 4. Obstructive sleep apnea (adult) (pediatric) (G47.33) - Continues to use CPAP. 5. Atrial fibrillation, unspecified type (HCC) (I48.91) 6. Essential hypertension (I10) 7. Right bundle branch block (I45.10) 8. Coronary artery disease involving agdaagux coronary artery of agdaagux heart without angina pectoris (I25.10) - Paroxysmal atrial fibrillation, symptomatic approximately 52% of the time, with episodes lasting up to half a day and causing significant dyspnea and activity limitation. - On Eliquis; instructed to hold Eliquis for 48 hours prior to upcoming procedure. - History of right bundle branch block on prior EKG. - Mild coronary artery disease; left heart catheterization on 09/28/2021 showed no significant disease. - Follow-up with cardiology nurse practitioner next month - sees [facility]. 9. Gastroesophageal reflux disease without esophagitis (K21.9) - Recent episode of acid reflux approximately 10 days ago, coinciding with hematochezia. - Advised to monitor dietary triggers. 10. Stage 2 chronic kidney disease (N18.2) - Mild, stable; recent labs reviewed by [facility] last Tuesday showed normal hemoglobin. ANESTHESIA FINDINGS: Intubation History: No history of difficult intubation. No abnormal airway history Significant Anesthesia Considerations: none Airway History: No history of difficult airway No abnormal airway history Mcbride Activity Status Index: METS: Walk indoors, such as around the house (1.75 METs) Do light work around the house, such as dusting or washing dishes (2.70 METs) Take care of self; that is eating, dressing, bathing, using the toilet (2.75 METs) Walk a block or two on level ground (2.75 METs) Do moderate work around the house, such as vacuuming, sweeping floors, or carrying in groceries (3.50 METs) Do yardwork, such as raking leaves, weeding, or pushing a power mower (4.50 METs) Climb a flight of stairs or walk up a hill (5.50 METs) Participate in moderate recreational activites, such as golf, bowling, dancing, doubles tennis, or throwing a baseball or football (6.00 METs) DASI Score: 29.45 Patient denies any chest pain or undue shortness of breath with the above physical activity. Clinical Frailty Scale: 3. Well, with treated comorbid disease STOP-Bang Score: STOP-Bang Score: (+ ernesto on cpap) [id number] Score: Age: >=75 Sex: male CHF history: No Hypertension history: Yes Stroke/TIA/thromboembolism history: No Vascular disease history: No Diabetes history: No [id number] Score: 3 I - PHYSICAL EVALUATION AIRWAY Patient intubated: No. Tracheostomy tube not present Mallampati: II. TM distance: >3 FB. Neck ROM: full ROM without neurological symptoms. Mouth openin FB. Short neck: no. Thick neck: no [place] present: yes DENTAL Dental findings: missing tooth/teeth. II - ANESTHESIA PLAN Anesthetic plan additional comments: *PACC/TCI - anesthesia choice. Informed Consent Prepared for Surgery: optimally prepared for surgery, pending [see comment]. Per PACC guidelines, patient may hold Eliquis 2 days prior to procedure. CONSULTS: Patient does not require consults for optimization at this time Planned Anesthetic: anesthesia choice The Following Tests/Procedures Have Been Initiated: No orders of the defined types were placed in this encounter. REASON FOR VISIT: Ramiro Lala is a 74 year old male who is scheduled for * No surgery found * at the request of Dr. Courtney Flowers for consultation. My final recommendation will be communicated back to the requesting physician by way of shared medical record or letter. Subjective The patient has the following: COVID-19 Immunization Status This patient has no relevant Health Maintenance data. CHIEF COMPLAINT: pre op HPI: Ramiro Lala is a 74-year-old male with a history of prostate cancer, atrial fibrillation (AFib), and migraines, presenting for evaluation prior to an upcoming EGD and colonoscopy. Ramiro reports hematochezia, with both dark and bright red blood in the stool, though not in the past 5 days. He attributes the bleeding to potential scar tissue from 34 sessions of radiation therapy for prostate cancer, completed a year ago, with remission since then. He denies fever, abdominal pain, or acid reflux, except for a single episode of acid reflux approximately 10 days ago. He also denies anemia, easy bruising, or bleeding, and has no family history of clotting or bleeding disorders. REVIEW OF SYSTEMS: General: No weight loss, malaise or fevers. Neurological: Positive for: headaches. Negative for: delirium, dementia, impaired sensorium, peripheral neuropathy, seizures, TIA and strokes. Respiratory: Denies any shortness of breath, chest pain, wheezing, or cough. Positive for: obstructive sleep apnea. Negative for: asthma, bronchitis, COPD, current cough, bronchodilator used daily for the last 3 months, dyspnea, home oxygen, orthopnea, pneumonia within 6 weeks, tobacco use and URI < 2 weeks. Cardiovascular: Denies any heart palpitations today Denies edema, chest pain, shortness of breath, syncope, activity intolerance, or dizziness. Positive for: atrial fibrillation, CAD and hypertension Patient's last office visit with cannon fire direction specialist, Dr. Momo Alvarez, was 06/2024. The following tests and/or procedures were performed: cardiac catheterization, cardiac stress test and echocardiogram. The following tests and/or procedures were not performed: cardiac stents. Negative for: abdominal aortic aneurysm, AICD/PPM, angina, anticoagulation therapy, arrhythmia, chest pain, CHF, congenital heart defect, DVT/PE, hyperlipidemia, recent MD, murmur/valvular heart disease, PTCA, PVD, open heart surgery and valve surgery. GI: Positive for: GERD Negative for: abdominal pain, GI bleed <30 days, hepatitis, liver disease, nausea, vomiting and ETOH >2 drinks/day. : + stage 2 CKD Negative for: on dialysis, dysuria, flank pain, frequent urination, hematuria, renal failure and urinary tract infection. Endocrine: Negative for: diabetes mellitus, hyperthyroidism and hypothyroidism. Hematology: Negative for: anemia, bruises/bleeds easily, factor V Leiden, hemophilia, thrombocytopenia, von Willebrand disease, transfusion of at least 4 units within 72 hours prior to surgery and chronic anti-coagulation/platelet meds. Oncology: + hx of prostate cancer Negative for: CA metastasis, chemo within 30 days, disseminated cancer and radiotherapy within 90 days. Psych: No history of psychiatric symptoms or problems. Musculoskeletal: Negative for joint pain or swelling, back pain or muscle pain. Skin: Negative for lesions, rash and itching. Implanted Devices: No implanted devices. PAST MEDICAL HISTORY Diagnosis Date Adenocarcinoma (HCC) Atrial fibrillation (HCC) BPH with obstruction/lower urinary tract symptoms Essential hypertension Nonrheumatic mitral valve insufficiency Prostate disease Prostate enlargement SOBOE (shortness of breath on exertion) Syncope PAST SURGICAL HISTORY Procedure Laterality Date COLONOSCOPY 03/07/2007 NEEDS ONE EVERY 3 YEARS CYSTOSCOPY HEART CATHETERIZATION Left 04/12/2001 LAP UMBILICAL HERNIA REPAIR PAST SURGICAL HISTORY OF FATTY TUMOR REMOVED. PAST SURGICAL HISTORY OF LEFT HAND ACCIDENT, INJECTED WITH HYDRAULIC OIL. RADICAL PROSTATECTOMY REMOVE CATARACT, INSERT LENS, INTRACAPSUL TONSILLECTOMY AND ADENOIDECTOMY HX VASECTOMY FAMILY HISTORY Problem Relation Age of Onset Cancer Mother Breast Cancer Mother Hypertension Mother Cancer Father Prostate Cancer Father Hypertension Father Colon Cancer Brother Anesthesia Problems No Family History SOCIAL HISTORY[1] Prior to Admission medications as of 10/31/24 0814 Medication Sig Last Dose Taking digoxin (LANOXIN) 125 mcg (0.125 mg) tablet Take 125 mcg by mouth once daily. Yes oxybutynin ER (DITROPAN XL) 10 mg 24 hr tablet Take 10 mg by mouth once daily. Yes amLODIPine (NORVASC) 10 mg tablet Take 1 tablet by mouth every afternoon. Yes apixaban (ELIQUIS) 5 mg tab(s) Take 5 mg by mouth two times a day. Yes Cetirizine (ZYRTEC) 10 mg cap Take 1 capsule by mouth as needed. Yes furosemide (LASIX) 40 mg tablet Take 40 mg by mouth once daily. Yes MULTIVITAMIN ORAL Take 1 tablet by mouth once daily. Yes No medication comments found. ALLERGIES No Known Allergies Objective PHYSICAL EXAM: General: alert and oriented and healthy appearance. Pertinent negatives noted - not distressed. Skin: normal color, no rash or lesions. HEENT: EOM intact, pupils equal round and pupils reactive to light. Pertinent negatives noted - no carotid bruit. Cardiovascular: regular rate and rhythm, normal S1 and S2, no rub, murmurs, or gallop. Respiratory: normal breath sounds, no wheezes or crackles. No chest wall deformity or tenderness. Abdomen: bowel sounds present and soft. Pertinent negatives noted - not tender. Extremities: no deformity, no edema or tenderness, no joint swelling or clubbing. Neurological: normal cognition and motor skills. Gait normal. No weakness or sensory deficit. PAIN ASSESSMENT: VITALS: BP 118/62 Pulse 51 Temp (Src) 96.9 (Temporal) Resp 14 Ht 6' 0" (1.83m) Wt 268 lb (121.6kg) SpO2 95% BMI 36.34 kg/(m^2). Diagnostic tests reviewed for today's visit: Lab Value Units Date High Low HB No results within date range. HCT No results within date range. WBC No results within date range. PLT No results within date range. NA No results within date range. K No results within date range. GLUC No results within date range. BUN No results within date range. CREAT No results within date range. PTSEC No results within date range. INR No results within date range. APTT No results within date range. ALT No results within date range. AST No results within date range. TBILI No results within date range. TSH No results within date range. Lab Value Units Date High Low HCGQT No results within date range. UHCG No results within date range. HCG, BODY* No results within date range. Lab Value Units Date High Low ABORHD No results within date range. ABSCREEN No results within date range. No results found for: "HBA1C" No results found for this or any previous visit (from the past 8760 hours). No results found for this or any previous visit (from the past 47651 hours). Instructions Given to Patient: Instructions located in the after visit summary. Patient given verbal and written preop instructions and voices comprehension and compliance. Recording using [employer] software for draft documentation of the visit was discussed with the patient/authorized sales representative wire rope; all questions welcomed and answered. Patient/authorized sales representative wire rope agreed to proceed SIGNATURE: Eugenie Velez APRN.CNP PATIENT NAME: Ramiro Lala DATE: October 31, 2024 TIME: 8:15 AM PAGER/CONTACT #: [1] Social History Tobacco Use Smoking status: Never Smokeless tobacco: Never Vaping Use Vaping status: Never Used Substance Use Topics Alcohol use: No Comment: holidays/special occasions only Drug use: No documented in this encounter [facility] 10-31-2024 Instructions Eugenie Velez APRN.CNP - 10/31/2024 8:23 AM EDT Images from the original note were not included. [facility] PATIENT PREOPERATIVE INSTRUCTIONS Courtney Flowers APRN.* has scheduled you for your procedure at this surgery center: [facility]: [phone] -- [address] [address]. Please read below carefully for your personalized instructions. Arrival Time for Surgery: - The Surgery Center or hospital where you are having surgery will call the afternoon before surgery (or Tuesday for Tuesday surgery) with a scheduled arrival time. - If you have not heard by 4 pm, please contact the surgery center above. Dietary Restrictions: - Please follow your bowel prep instructions from your surgeon's office. Medications: Pre-Surgery Med Instructions Medication Instructions digoxin (LANOXIN) 125 mcg (0.125 mg) tablet If you normally take this medication in the morning, take the morning of surgery. oxybutynin ER (DITROPAN XL) 10 mg 24 hr tablet Do not take the day of surgery amLODIPine (NORVASC) 10 mg tablet If you normally take this medication in the morning, take the morning of surgery. apixaban (ELIQUIS) 5 mg tab(s) Hold 2 days before surgery. Last dose 11/04/24. Cetirizine (ZYRTEC) 10 mg cap If you normally take this medication in the morning, take the morning of surgery. furosemide (LASIX) 40 mg tablet Do not take the day of surgery MULTIVITAMIN ORAL Do not take the day of surgery If you are currently using a [id number] injectable or oral medication for diabetes or weight loss such as Dulaglutide (Trulicity), Exenatide (Byetta, Bydureon), Liraglutide (Victoza, Saxenda), Semaglutide (Ozempic, Wegovy, Rybelsus), or Tirzepatide (Mounjaro), the medicine should be stopped at least 7 days before surgery. These medicines can cause food to remain in your stomach for a very long time and increase the risks from surgery and anesthesia. Not stopping the medication for a long enough time may result in your surgery being rescheduled. If you take any medications for erectile dysfunction-Cialis (Tadalafil), Levitra, Staxyn (Vardenafil) Viagra (Sildenenafil please do not take these for 48 hours before surgery. If you start any new medications after today's visit, please contact the surgeon's office. Blood Thinning Medications: - Stop NSAIDS (Ibuprofen, Advil, Aleve, Motrin, Celebrex, Mobic, etc.) 7 days before surgery, as directed by your surgeon. - Stop Aspirin 7 days before surgery, as directed by your surgeon. - Stop herbal supplements 7 days before surgery. - You may take Tylenol (Acetaminophen) or any of your pain medications that do not contain aspirin or NSAIDS as needed. Important Reminders: - If you use CPAP/BIPAP, bring the machine with you to the surgery center. - If you are prescribed inhalers for breathing, continue using them. - Please be sure to brush your teeth and you can use mouth wash or rinse your mouth if dry. - Candy, mints, and tobacco products are NOT permitted the morning of surgery. - Hearing aids, dentures and glasses may be worn the morning of surgery. - If you have dentures or partials, please have a case to place them in or leave at home day of surgery. - NO jewelry, body piercings, makeup, hairpins or contacts are to be worn the day of surgery. If you develop symptoms such as a fever, cold, or flu, or have other changes to your health within TWO DAYS of scheduled surgery or the morning of surgery, please contact the surgery center above. Personal Belongings: -Please have photo ID and insurance cards. -If you do not have a copy of advance directives on file with us, please bring a copy with you on the day of surgery. - Leave ALL valuables and money at home or with family members. For Outpatient Procedures: - YOU MUST HAVE A RESPONSIBLE FAMILY PROTECTION SPECIALIST TAKE YOU HOME. A ACCOUNT MANAGER FOREST SERVICE OR BOARD MACHINE SET UP OPERATOR CANNOT BE MADE A RESPONSIBLE FAMILY PROTECTION SPECIALIST. - We recommend that a responsible person stays with you overnight to take care of you. - You cannot stay in a hotel alone after outpatient surgery. You will not be permitted to have your surgery, if you do not have someone to take care of you. Please be aware that emergency situations arise, which may delay or change your surgical time. If this happens, we will notify you as soon as possible and regret any inconvenience. If you already have an Advance Directive, please fax a copy to [phone] or email to for it to be added to your chart. If you do not have an Advance Directive, you can find the appropriate form and more information at [email or web address]. We recommend that you complete the Advance Directive form found on the website and bring it with you the day of your surgery. It can be witnessed and scanned into your chart that day. Eugenie Velez APRN.BOB documented in this encounter [facility] 10-31-2024 History and physical note Images from the original note were not included. [facility] HISTORY AND PHYSICAL EXAMINATION SERVICE DATE: 10/31/2024 SERVICE TIME: 8:58 AM PRIMARY CARE PHYSICIAN: Aissatou Webster APRN.SISAL PICKER Assessment Patient has the following medical conditions which may affect vicky-operative course: 1. Migraine without status migrainosus, not intractable, unspecified migraine type (G43.909) - Frequent migraines with visual aura; most recent episode on Tuesday. - Advised to avoid known triggers, including dark chocolate. 2. History of prostate cancer (Z85.46) - Completed 34 sessions of radiation therapy one year ago; in remission for one year. - S/p prostatectomy 3. BMI 36.0-36.9,adult (Z68.36) - Body mass index is 36.35 kg/m . 4. Obstructive sleep apnea (adult) (pediatric) (G47.33) - Continues to use CPAP. 5. Atrial fibrillation, unspecified type (HCC) (I48.91) 6. Essential hypertension (I10) 7. Right bundle branch block (I45.10) 8. Coronary artery disease involving agdaagux coronary artery of agdaagux heart without angina pectoris (I25.10) - Paroxysmal atrial fibrillation, symptomatic approximately 52% of the time, with episodes lasting up to half a day and causing significant dyspnea and activity limitation. - On Eliquis; instructed to hold Eliquis for 48 hours prior to upcoming procedure. - History of right bundle branch block on prior EKG. - Mild coronary artery disease; left heart catheterization on 09/28/2021 showed no significant disease. - Follow-up with cardiology nurse practitioner next month - sees [facility]. 9. Gastroesophageal reflux disease without esophagitis (K21.9) - Recent episode of acid reflux approximately 10 days ago, coinciding with hematochezia. - Advised to monitor dietary triggers. 10. Stage 2 chronic kidney disease (N18.2) - Mild, stable; [facility] showed normal [facility]. ANESTHESIA FINDINGS: Intubation History: No history of difficult intubation. No abnormal airway history Significant Anesthesia Considerations: none Airway History: No history of difficult airway No abnormal airway history Mcbride Activity Status Index: METS: Walk indoors, such as around the house (1.75 METs) Do light work around the house, such as dusting or washing dishes (2.70 METs) Take care of self; that is eating, dressing, bathing, using the toilet (2.75 METs) Walk a block or two on level ground (2.75 METs) Do moderate work around the house, such as vacuuming, sweeping floors, or carrying in groceries (3.50 METs) Do yardwork, such as raking leaves, weeding, or pushing a power mower (4.50 METs) Climb a flight of stairs or walk up a hill (5.50 METs) Participate in moderate recreational activites, such as golf, bowling, dancing, doubles tennis, or throwing a baseball or football (6.00 METs) DASI Score: 29.45 Patient denies any chest pain or undue shortness of breath with the above physical activity. Clinical Frailty Scale: 3. Well, with treated comorbid disease STOP-Bang Score: STOP-Bang Score: (+ ernesto on cpap) [id number] Score: Age: >=75 Sex: male CHF history: No Hypertension history: Yes Stroke/TIA/thromboembolism history: No Vascular disease history: No Diabetes history: No [id number] Score: 3 I - PHYSICAL EVALUATION AIRWAY Patient intubated: No. Tracheostomy tube not present Mallampati: II. TM distance: >3 FB. Neck ROM: full ROM without neurological symptoms. Mouth openin FB. Short neck: no. Thick neck: no Med[place] present: yes DENTAL Dental findings: missing tooth/teeth. II - ANESTHESIA PLAN Anesthetic plan additional comments: *PACC/TCI - anesthesia choice. Informed Consent Prepared for Surgery: optimally prepared for surgery, pending [see comment]. Per PACC guidelines, patient may hold Eliquis 2 days prior to procedure. CONSULTS: Patient does not require consults for optimization at this time Planned Anesthetic: anesthesia choice The Following Tests/Procedures Have Been Initiated: No orders of the defined types were placed in this encounter. REASON FOR VISIT: Ramiro Lala is a 74 year old male who is scheduled for * No surgery found * at the request of Dr. Courtney Flowers for consultation. My final recommendation will be communicated back to the requesting physician by way of shared medical record or letter. Subjective The patient has the following: COVID-19 Immunization Status This patient has no relevant Health Maintenance data. CHIEF COMPLAINT: pre op HPI: Ramiro Lala is a 74-year-old male with a history of prostate cancer, atrial fibrillation (AFib), and migraines, presenting for evaluation prior to an upcoming EGD and colonoscopy. Ramiro reports hematochezia, with both dark and bright red blood in the stool, though not in the past 5 days. He attributes the bleeding to potential scar tissue from 34 sessions of radiation therapy for prostate cancer, completed a year ago, with remission since then. He denies fever, abdominal pain, or acid reflux, except for a single episode of acid reflux approximately 10 days ago. He also denies anemia, easy bruising, or bleeding, and has no family history of clotting or bleeding disorders. REVIEW OF SYSTEMS: General: No weight loss, malaise or fevers. Neurological: Positive for: headaches. Negative for: delirium, dementia, impaired sensorium, peripheral neuropathy, seizures, TIA and strokes. Respiratory: Denies any shortness of breath, chest pain, wheezing, or cough. Positive for: obstructive sleep apnea. Negative for: asthma, bronchitis, COPD, current cough, bronchodilator used daily for the last 3 months, dyspnea, home oxygen, orthopnea, pneumonia within 6 weeks, tobacco use and URI < 2 weeks. Cardiovascular: Denies any heart palpitations today Denies edema, chest pain, shortness of breath, syncope, activity intolerance, or dizziness. Positive for: atrial fibrillation, CAD and hypertension Patient's last office visit with cannon fire direction specialist, Dr. Momo Alvarez, was 06/2024. The following tests and/or procedures were performed: cardiac catheterization, cardiac stress test and echocardiogram. The following tests and/or procedures were not performed: cardiac stents. Negative for: abdominal aortic aneurysm, AICD/PPM, angina, anticoagulation therapy, arrhythmia, chest pain, CHF, congenital heart defect, DVT/PE, hyperlipidemia, recent MD, murmur/valvular heart disease, PTCA, PVD, open heart surgery and valve surgery. GI: Positive for: GERD Negative for: abdominal pain, GI bleed <30 days, hepatitis, liver disease, nausea, vomiting and ETOH >2 drinks/day. : + stage 2 CKD Negative for: on dialysis, dysuria, flank pain, frequent urination, hematuria, renal failure and urinary tract infection. Endocrine: Negative for: diabetes mellitus, hyperthyroidism and hypothyroidism. Hematology: Negative for: anemia, bruises/bleeds easily, factor V Leiden, hemophilia, thrombocytopenia, von Willebrand disease, transfusion of at least 4 units within 72 hours prior to surgery and chronic anti-coagulation/platelet meds. Oncology: + hx of prostate cancer Negative for: CA metastasis, chemo within 30 days, disseminated cancer and radiotherapy within 90 days. Psych: No history of psychiatric symptoms or problems. Musculoskeletal: Negative for joint pain or swelling, back pain or muscle pain. Skin: Negative for lesions, rash and itching. Implanted Devices: No implanted devices. PAST MEDICAL HISTORY Diagnosis Date Adenocarcinoma (HCC) Atrial fibrillation (HCC) BPH with obstruction/lower urinary tract symptoms Essential hypertension Nonrheumatic mitral valve insufficiency Prostate disease Prostate enlargement SOBOE (shortness of breath on exertion) Syncope PAST SURGICAL HISTORY Procedure Laterality Date COLONOSCOPY 03/07/2007 NEEDS ONE EVERY 3 YEARS CYSTOSCOPY HEART CATHETERIZATION Left 04/12/2001 LAP UMBILICAL HERNIA REPAIR PAST SURGICAL HISTORY OF FATTY TUMOR REMOVED. PAST SURGICAL HISTORY OF LEFT HAND ACCIDENT, INJECTED WITH HYDRAULIC OIL. RADICAL PROSTATECTOMY REMOVE CATARACT, INSERT LENS, INTRACAPSUL TONSILLECTOMY AND ADENOIDECTOMY HX VASECTOMY FAMILY HISTORY Problem Relation Age of Onset Cancer Mother Breast Cancer Mother Hypertension Mother Cancer Father Prostate Cancer Father Hypertension Father Colon Cancer Brother Anesthesia Problems No Family History SOCIAL HISTORY[1] Prior to Admission medications as of 10/31/24 0814 Medication Sig Last Dose Taking digoxin (LANOXIN) 125 mcg (0.125 mg) tablet Take 125 mcg by mouth once daily. Yes oxybutynin ER (DITROPAN XL) 10 mg 24 hr tablet Take 10 mg by mouth once daily. Yes amLODIPine (NORVASC) 10 mg tablet Take 1 tablet by mouth every afternoon. Yes apixaban (ELIQUIS) 5 mg tab(s) Take 5 mg by mouth two times a day. Yes Cetirizine (ZYRTEC) 10 mg cap Take 1 capsule by mouth as needed. Yes furosemide (LASIX) 40 mg tablet Take 40 mg by mouth once daily. Yes MULTIVITAMIN ORAL Take 1 tablet by mouth once daily. Yes No medication comments found. ALLERGIES No Known Allergies Objective PHYSICAL EXAM: General: alert and oriented and healthy appearance. Pertinent negatives noted - not distressed. Skin: normal color, no rash or lesions. HEENT: EOM intact, pupils equal round and pupils reactive to light. Pertinent negatives noted - no carotid bruit. Cardiovascular: regular rate and rhythm, normal S1 and S2, no rub, murmurs, or gallop. Respiratory: normal breath sounds, no wheezes or crackles. No chest wall deformity or tenderness. Abdomen: bowel sounds present and soft. Pertinent negatives noted - not tender. Extremities: no deformity, no edema or tenderness, no joint swelling or clubbing. Neurological: normal cognition and motor skills. Gait normal. No weakness or sensory deficit. PAIN ASSESSMENT: VITALS: BP 118/62 Pulse 51 Temp (Src) 96.9 (Temporal) Resp 14 Ht 6' 0" (1.83m) Wt 268 lb (121.6kg) SpO2 95% BMI 36.34 kg/(m^2). Diagnostic tests reviewed for today's visit: Lab Value Units Date High Low HB No results within date range. HCT No results within date range. WBC No results within date range. PLT No results within date range. NA No results within date range. K No results within date range. GLUC No results within date range. BUN No results within date range. CREAT No results within date range. PTSEC No results within date range. INR No results within date range. APTT No results within date range. ALT No results within date range. AST No results within date range. TBILI No results within date range. TSH No results within date range. Lab Value Units Date High Low HCGQT No results within date range. UHCG No results within date range. HCG, BODY* No results within date range. Lab Value Units Date High Low ABORHD No results within date range. ABSCREEN No results within date range. No results found for: "HBA1C" No results found for this or any previous visit (from the past 8760 hours). No results found for this or any previous visit (from the past 54348 hours). Instructions Given to Patient: Instructions located in the after visit summary. Patient given verbal and written preop instructions and voices comprehension and compliance. Recording using [employer] software for draft documentation of the visit was discussed with the patient/authorized sales representative wire rope; all questions welcomed and answered. Patient/authorized sales representative wire rope agreed to proceed SIGNATURE: Eugenie Velez APRN.CNP PATIENT NAME: Ramiro Lala DATE: October 31, 2024 TIME: 8:15 AM PAGER/CONTACT #: [1] Social History Tobacco Use Smoking status: Never Smokeless tobacco: Never Vaping Use Vaping status: Never Used Substance Use Topics Alcohol use: No Comment: holidays/special occasions only Drug use: No T [facility] 10-31-2024 History and physical note Images from the original note were not included. [facility] HISTORY AND PHYSICAL EXAMINATION SERVICE DATE: 10/31/2024 SERVICE TIME: 8:58 AM PRIMARY CARE PHYSICIAN: Aissatou Webster APRN.CNP Assessment Patient has the following medical conditions which may affect vicky-operative course: 1. Migraine without status migrainosus, not intractable, unspecified migraine type (G43.909) - Frequent migraines with visual aura; most recent episode on Tuesday. - Advised to avoid known triggers, including dark chocolate. 2. History of prostate cancer (Z85.46) - Completed 34 sessions of radiation therapy one year ago; in remission for one year. - S/p prostatectomy 3. BMI 36.0-36.9,adult (Z68.36) - Body mass index is 36.35 kg/m . 4. Obstructive sleep apnea (adult) (pediatric) (G47.33) - Continues to use CPAP. 5. Atrial fibrillation, unspecified type (HCC) (I48.91) 6. Essential hypertension (I10) 7. Right bundle branch block (I45.10) 8. Coronary artery disease involving agdaagux coronary artery of agdaagux heart without angina pectoris (I25.10) - Paroxysmal atrial fibrillation, symptomatic approximately 52% of the time, with episodes lasting up to half a day and causing significant dyspnea and activity limitation. - On Eliquis; instructed to hold Eliquis for 48 hours prior to upcoming procedure. - History of right bundle branch block on prior EKG. - Mild coronary artery disease; left heart catheterization on 09/28/2021 showed no significant disease. - Follow-up with cardiology nurse practitioner next month - sees [facility]. 9. Gastroesophageal reflux disease without esophagitis (K21.9) - Recent episode of acid reflux approximately 10 days ago, coinciding with hematochezia. - Advised to monitor dietary triggers. 10. Stage 2 chronic kidney disease (N18.2) - Mild, stable; [facility] showed normal hemoglobin. ANESTHESIA FINDINGS: Intubation History: No history of difficult intubation. No abnormal airway history Significant Anesthesia Considerations: none Airway History: No history of difficult airway No abnormal airway history Mcbride Activity Status Index: METS: Walk indoors, such as around the house (1.75 METs) Do light work around the house, such as dusting or washing dishes (2.70 METs) Take care of self; that is eating, dressing, bathing, using the toilet (2.75 METs) Walk a block or two on level ground (2.75 METs) Do moderate work around the house, such as vacuuming, sweeping floors, or carrying in groceries (3.50 METs) Do yardwork, such as raking leaves, weeding, or pushing a power mower (4.50 METs) Climb a flight of stairs or walk up a hill (5.50 METs) Participate in moderate recreational activites, such as golf, bowling, dancing, doubles tennis, or throwing a baseball or football (6.00 METs) DASI Score: 29.45 Patient denies any chest pain or undue shortness of breath with the above physical activity. Clinical Frailty Scale: 3. Well, with treated comorbid disease STOP-Bang Score: STOP-Bang Score: (+ ernesto on cpap) [id number] Score: Age: >=75 Sex: male CHF history: No Hypertension history: Yes Stroke/TIA/thromboembolism history: No Vascular disease history: No Diabetes history: No [id number] Score: 3 I - PHYSICAL EVALUATION AIRWAY Patient intubated: No. Tracheostomy tube not present Mallampati: II. TM distance: >3 FB. Neck ROM: full ROM without neurological symptoms. Mouth openin FB. Short neck: no. Thick neck: no [place] present: yes DENTAL Dental findings: missing tooth/teeth. II - ANESTHESIA PLAN Anesthetic plan additional comments: *PACC/TCI - anesthesia choice. Informed Consent Prepared for Surgery: optimally prepared for surgery, pending [see comment]. Per PACC guidelines, patient may hold Eliquis 2 days prior to procedure. CONSULTS: Patient does not require consults for optimization at this time Planned Anesthetic: anesthesia choice The Following Tests/Procedures Have Been Initiated: No orders of the defined types were placed in this encounter. REASON FOR VISIT: Ramiro Lala is a 74 year old male who is scheduled for * No surgery found * at the request of Dr. Courtney Flowers for consultation. My final recommendation will be communicated back to the requesting physician by way of shared medical record or letter. Subjective The patient has the following: COVID-19 Immunization Status This patient has no relevant Health Maintenance data. CHIEF COMPLAINT: pre op HPI: Ramiro Lala is a 74-year-old male with a history of prostate cancer, atrial fibrillation (AFib), and migraines, presenting for evaluation prior to an upcoming EGD and colonoscopy. Ramiro reports hematochezia, with both dark and bright red blood in the stool, though not in the past 5 days. He attributes the bleeding to potential scar tissue from 34 sessions of radiation therapy for prostate cancer, completed a year ago, with remission since then. He denies fever, abdominal pain, or acid reflux, except for a single episode of acid reflux approximately 10 days ago. He also denies anemia, easy bruising, or bleeding, and has no family history of clotting or bleeding disorders. REVIEW OF SYSTEMS: General: No weight loss, malaise or fevers. Neurological: Positive for: headaches. Negative for: delirium, dementia, impaired sensorium, peripheral neuropathy, seizures, TIA and strokes. Respiratory: Denies any shortness of breath, chest pain, wheezing, or cough. Positive for: obstructive sleep apnea. Negative for: asthma, bronchitis, COPD, current cough, bronchodilator used daily for the last 3 months, dyspnea, home oxygen, orthopnea, pneumonia within 6 weeks, tobacco use and URI < 2 weeks. Cardiovascular: Denies any heart palpitations today Denies edema, chest pain, shortness of breath, syncope, activity intolerance, or dizziness. Positive for: atrial fibrillation, CAD and hypertension Patient's last office visit with cannon fire direction specialist, Dr. Momo Alvarez, was 06/2024. The following tests and/or procedures were performed: cardiac catheterization, cardiac stress test and echocardiogram. The following tests and/or procedures were not performed: cardiac stents. Negative for: abdominal aortic aneurysm, AICD/PPM, angina, anticoagulation therapy, arrhythmia, chest pain, CHF, congenital heart defect, DVT/PE, hyperlipidemia, recent MD, murmur/valvular heart disease, PTCA, PVD, open heart surgery and valve surgery. GI: Positive for: GERD Negative for: abdominal pain, GI bleed <30 days, hepatitis, liver disease, nausea, vomiting and ETOH >2 drinks/day. : + stage 2 CKD Negative for: on dialysis, dysuria, flank pain, frequent urination, hematuria, renal failure and urinary tract infection. Endocrine: Negative for: diabetes mellitus, hyperthyroidism and hypothyroidism. Hematology: Negative for: anemia, bruises/bleeds easily, factor V Leiden, hemophilia, thrombocytopenia, von Willebrand disease, transfusion of at least 4 units within 72 hours prior to surgery and chronic anti-coagulation/platelet meds. Oncology: + hx of prostate cancer Negative for: CA metastasis, chemo within 30 days, disseminated cancer and radiotherapy within 90 days. Psych: No history of psychiatric symptoms or problems. Musculoskeletal: Negative for joint pain or swelling, back pain or muscle pain. Skin: Negative for lesions, rash and itching. Implanted Devices: No implanted devices. PAST MEDICAL HISTORY Diagnosis Date Adenocarcinoma (HCC) Atrial fibrillation (HCC) BPH with obstruction/lower urinary tract symptoms Essential hypertension Nonrheumatic mitral valve insufficiency Prostate disease Prostate enlargement SOBOE (shortness of breath on exertion) Syncope PAST SURGICAL HISTORY Procedure Laterality Date COLONOSCOPY 03/07/2007 NEEDS ONE EVERY 3 YEARS CYSTOSCOPY HEART CATHETERIZATION Left 04/12/2001 LAP UMBILICAL HERNIA REPAIR PAST SURGICAL HISTORY OF FATTY TUMOR REMOVED. PAST SURGICAL HISTORY OF LEFT HAND ACCIDENT, INJECTED WITH HYDRAULIC OIL. RADICAL PROSTATECTOMY REMOVE CATARACT, INSERT LENS, INTRACAPSUL TONSILLECTOMY AND ADENOIDECTOMY HX VASECTOMY FAMILY HISTORY Problem Relation Age of Onset Cancer Mother Breast Cancer Mother Hypertension Mother Cancer Father Prostate Cancer Father Hypertension Father Colon Cancer Brother Anesthesia Problems No Family History SOCIAL HISTORY[1] Prior to Admission medications as of 10/31/24 0814 Medication Sig Last Dose Taking digoxin (LANOXIN) 125 mcg (0.125 mg) tablet Take 125 mcg by mouth once daily. Yes oxybutynin ER (DITROPAN XL) 10 mg 24 hr tablet Take 10 mg by mouth once daily. Yes amLODIPine (NORVASC) 10 mg tablet Take 1 tablet by mouth every afternoon. Yes apixaban (ELIQUIS) 5 mg tab(s) Take 5 mg by mouth two times a day. Yes Cetirizine (ZYRTEC) 10 mg cap Take 1 capsule by mouth as needed. Yes furosemide (LASIX) 40 mg tablet Take 40 mg by mouth once daily. Yes MULTIVITAMIN ORAL Take 1 tablet by mouth once daily. Yes No medication comments found. ALLERGIES No Known Allergies Objective PHYSICAL EXAM: General: alert and oriented and healthy appearance. Pertinent negatives noted - not distressed. Skin: normal color, no rash or lesions. HEENT: EOM intact, pupils equal round and pupils reactive to light. Pertinent negatives noted - no carotid bruit. Cardiovascular: regular rate and rhythm, normal S1 and S2, no rub, murmurs, or gallop. Respiratory: normal breath sounds, no wheezes or crackles. No chest wall deformity or tenderness. Abdomen: bowel sounds present and soft. Pertinent negatives noted - not tender. Extremities: no deformity, no edema or tenderness, no joint swelling or clubbing. Neurological: normal cognition and motor skills. Gait normal. No weakness or sensory deficit. PAIN ASSESSMENT: VITALS: BP 118/62 Pulse 51 Temp (Src) 96.9 (Temporal) Resp 14 Ht 6' 0" (1.83m) Wt 268 lb (121.6kg) SpO2 95% BMI 36.34 kg/(m^2). Diagnostic tests reviewed for today's visit: Lab Value Units Date High Low HB No results within date range. HCT No results within date range. WBC No results within date range. PLT No results within date range. NA No results within date range. K No results within date range. GLUC No results within date range. BUN No results within date range. CREAT No results within date range. PTSEC No results within date range. INR No results within date range. APTT No results within date range. ALT No results within date range. AST No results within date range. TBILI No results within date range. TSH No results within date range. Lab Value Units Date High Low HCGQT No results within date range. UHCG No results within date range. HCG, BODY* No results within date range. Lab Value Units Date High Low ABORHD No results within date range. ABSCREEN No results within date range. No results found for: "HBA1C" No results found for this or any previous visit (from the past 8760 hours). No results found for this or any previous visit (from the past 82987 hours). Instructions Given to Patient: Instructions located in the after visit summary. Patient given verbal and written preop instructions and voices comprehension and compliance. Recording using [employer] software for draft documentation of the visit was discussed with the patient/authorized sales representative wire rope; all questions welcomed and answered. Patient/authorized sales representative wire rope agreed to proceed SIGNATURE: Eugenie Velez APRN.CNP PATIENT NAME: Ramiro Lala DATE: October 31, 2024 TIME: 8:15 AM PAGER/CONTACT #: [1] Social History Tobacco Use Smoking status: Never Smokeless tobacco: Never Vaping Use Vaping status: Never Used Substance Use Topics Alcohol use: No Comment: holidays/special occasions only Drug use: No documented in this encounter [facility] 10-26-2024 Telephone encounter Note Patient has been identified by name and date of : Yes Spiritual Advisor is Dr. Momo Alvarez/ Keshawn NOYOLA and Eliquis managed by cannon fire direction specialist for history of atrial fibrillation. Patient was instructed by surgeon's office to hold Eliquis 48 hours prior to surgery. Letter sent to cannon fire direction specialist asking if okay to hold Eliquis 2 days prior to procedure- EGD/Colonoscopy on 11/07/2024. Edna Horton RN October 26, 2024 2:15 PM [facility] 10-26-2024 Miscellaneous Notes Patient has been identified by name and date of : Yes Spiritual Advisor is Dr. Momo Alvarez/ Keshawn NOYOLA and Eliquis managed by cannon fire direction specialist for history of atrial fibrillation. Patient was instructed by surgeon's office to hold Eliquis 48 hours prior to surgery. Letter sent to cannon fire direction specialist asking if okay to hold Eliquis 2 days prior to procedure- EGD/Colonoscopy on 11/07/2024. Edna Horton RN October 26, 2024 2:15 PM Summary: Amrit, 11/07/24 ID RE:Amrit, 11/07/24 ID FE PACC RN, Please address Eliquis Hold for upcoming procedure. Noted in 10/26/24 OV with GS to Hold for 48 hrs. Thanks, Dena Whipple RN documented in this encounter [facility] 10-26-2024 Telephone encounter Note Summary: Eliqubora, 11/07/24 ID RE:Amrit, 11/07/24 ID FE PACC RN, Please address Eliquis Hold for upcoming procedure. Noted in 10/26/24 OV with GS to Hold for 48 hrs. Thanks, Dena Whipple RN [facility] 10-26-2024 History of Present illness Narrative HISTORY AND PHYSICAL Ramiro aLla : 1950 REFERRING PHYSICIAN: ABDIRAHMAN YAN [facility] [place] CHIEF COMPLAINT: Patient presents with: Rectal Bleeding: Rectal bleeding HPI: Ramiro is a 74 year old male referred for endoscopy. Ramiro notes blood in stool-hx of polyps. +iFOBT Ramiro denies abdominal pain. Ramiro denies diarrhea. Ramiro denies constipation. Ramiro denies a change in bowel habits. Ramiro notes melena. -last 10 days Ramiro notes bright red blood per rectum. Ramiro notes hemorrhoids. Ramiro denies family history of colon issues. Ramiro notes heartburn. -for the last 10 days -after heavy meal in the afternoon Ramiro denies dysphagia. Ramiro denies a history of ulcers/ peptic ulcer disease. Ramiro has a hx of A.Fib & HTN, he follows with [facility]. Last OV 07/2024- on eliquis & amiodarone & digoxin. He denies CP, +SOB, dizziness, +palpitations, syncope, edema, recent hospitalizations -PFTS completed 09/25/24 showed small airway dx with significant bronchodilator response. Ramiro has a hx of prostate cancer with radiation (2021). Ramiro has undergone prior endoscopy. Last colonoscopy was 05/2022- [facility] -no polyps -previous to this colonoscopy, polyps every time Current Outpatient Medications Medication Sig digoxin (LANOXIN) 125 mcg (0.125 mg) tablet Take 125 mcg by mouth once daily. oxybutynin ER (DITROPAN XL) 10 mg 24 hr tablet Take 10 mg by mouth once daily. amLODIPine (NORVASC) 10 mg tablet Take 1 tablet by mouth every afternoon. apixaban (ELIQUIS) 5 mg tab(s) Take 5 mg by mouth two times a day. Cetirizine (ZYRTEC) 10 mg cap Take 1 capsule by mouth as needed. furosemide (LASIX) 40 mg tablet Take 40 mg by mouth once daily. MULTIVITAMIN ORAL Take 1 tablet by mouth once daily. No current facility-administered medications for this visit. ALLERGIES: Patient has no known allergies. PAST MEDICAL HISTORY Diagnosis Date Adenocarcinoma (HCC) Atrial fibrillation (HCC) BPH with obstruction/lower urinary tract symptoms Essential hypertension Nonrheumatic mitral valve insufficiency Prostate disease Prostate enlargement SOBOE (shortness of breath on exertion) Syncope PAST SURGICAL HISTORY Procedure Laterality Date COLONOSCOPY 03/07/2007 NEEDS ONE EVERY 3 YEARS CYSTOSCOPY HEART CATHETERIZATION Left 04/12/2001 LAP UMBILICAL HERNIA REPAIR PAST SURGICAL HISTORY OF FATTY TUMOR REMOVED. PAST SURGICAL HISTORY OF LEFT HAND ACCIDENT, INJECTED WITH HYDRAULIC OIL. RADICAL PROSTATECTOMY REMOVE CATARACT, INSERT LENS, INTRACAPSUL TONSILLECTOMY AND ADENOIDECTOMY HX VASECTOMY FAMILY HISTORY Problem Relation Age of Onset Cancer Mother Breast Cancer Mother Hypertension Mother Cancer Father Prostate Cancer Father Hypertension Father Colon Cancer Brother SOCIAL HISTORY[1] REVIEW OF SYMPTOMS: REVIEW OF SYSTEMS: General: The patient denies fatigue, denies weight loss, denies weight gain, denies feeling hot, and feelings of cold. Eyes: The patient denies glaucoma, denies eye injury/surgery, denies glasses or contacts. Ear/Nose/Throat: The patient denies allergies, denies hayfever, denies ear infections, and denies bloody noses. Cardiovascular: The patient denies chest pain, denies heart disease, + high blood pressure, denies high cholesterol, and denies poor circulation. Respiratory: The patient denies tuberculosis, denies pneumonia, denies frequent cough, + shortness of breath, and denies coughing up blood. Gastrointestinal: The patient denies difficulty swallowing, denies acid reflux, denies ulcers, denies jaundice/hepatitis, denies gallbladder problems, denies vomiting, denies black or tarry stools, + hemorrhoids, + bleeding from rectum, denies diverticulitis, denies constipation, denies diarrhea, denies loss of stool control, and denies hernias. Kidney/Bladder: The patient denies kidney stones, denies urine infections, and denies bloody urine. Skin: The patient denies a history of skin cancer, denies bleeding/changing moles, and denies a history of skin rash. Neurologic: The patient denies a history of epilepsy/convulsions, denies headaches, denies head/spinal injuries, and denies stroke/TIA. Psychiatric: The patient denies psychiatric medications, denies depression, and denies voices. Endocrine: The patient denies thyroid disorders, denies diabetes, and denies hormonal problems. Hematologic: The patient denies a history of bruising, denies bleeding, and denies anemia. Infections: The patient + a history of measles and mumps, denies rheumatic fever, and denies sexually transmitted diseases. Musculoskeletal: The patient denies back pain/injury, denies back problems, denies sciatica, denies knee/foot trouble, denies arthritis, or denies gout. PHYSICAL EXAMINATION: General: The patient is 74 year old, male well nourished, well hydrated in no acute distress. The patient is oriented to time, place, and person. VITALS: Blood pressure 136/75, pulse 77, resp. rate 14, weight 122.4 kg (269 lb 14.4 oz), SpO2 95%. There is no height or weight on file to calculate BMI. HEENT: Normal cephalic, ataumatic, pupils are equally round, sclera are anicteric, mucous membranes are moist, oropharynx is clear. Neck has no masses or asymmetry . Respiratory: Clear to auscultation. Cardiac: Regular rate and rhythm. Abdominal exam: Soft, nontender, with no palpable masses. No hepatosplenomegaly. No palpable hernias. Extremities: no clubbing or cyanosis LABORATORY VALUES: As Noted RADIOLOGIC STUDIES: As Noted Assessment IMPRESSION: BRBPR, melena, heart burn PLAN: I have reviewed my findings with the surgeon. Will plan for upper and lower endoscopy. We discussed the risks and benefits of the planned endoscopy in terms understandable to the patient. I have informed the patient that complications can occur including failure to complete the endoscopy and perforation. Ramiro had the opportunity to ask questions concerning the planned endoscopy. Ramiro freely consents to surgery. I plan to use miraLAX bowel preparation Hold eliquis for 48 hours I have explained to the patient the difference between IV conscious sedation and MAC anesthesia - and I have offered either, according to the patient's wishes. I have explained that with IV conscious sedation there is no anesthesia provider available and therefore there is a limitation of the amount of IV medications that can be given and that the patient may wake up in the middle of the procedure and/or experience pain/discomfort during the procedure. Further discussion was done and the patient was given the opportunity to ask questions and all questions were answered. MAC anesthesia. Ramiro was counseled that if there are changes in his/her medical condition, to let the office know if surgery should proceed. If there are changes in patient's medical condition from time of this encounter to the day of the procedure that preclude anesthesia, patient may have procedure cancelled for patient's safety. Diagnoses: (K62.5) BRBPR (bright red blood per rectum) (primary encounter diagnosis) (K92.1) Melena (R12) Heart burn Portions of this documentation were copied and pasted from previous office visit notes in order to provide a cohesive continuity of the history. The note has been reviewed and edited and updated as necessary. Courtney Flowers APRN.BOB [1] Social History Tobacco Use Smoking status: Never Substance Use Topics Alcohol use: No Comment: holidays/special occasions only Drug use: No documented in this encounter [facility] 10-26-2024 Note HNO ID: [id number] Author: COURTNEY FLOWERS APRN.CNP Service: ? Author Type: Nurse Practitioner Type: Progress Notes Filed: 10/26/2024 11:10 Note Text: HISTORY AND PHYSICAL Ramiro Lala : 1950 REFERRING PHYSICIAN[facility] [place] CHIEF COMPLAINT: Patient presents with: Rectal Bleeding: Rectal bleeding HPI: Ramiro is a 74 year old male referred for endoscopy. Ramiro notes blood in stool-hx of polyps. +iFOBT Ramiro denies abdominal pain. Ramiro denies diarrhea. Ramiro denies constipation. Ramiro denies a change in bowel habits. Ramiro notes melena. -last 10 days Ramiro notes bright red blood per rectum. Ramiro notes hemorrhoids. Ramiro denies family history of colon issues. Ramiro notes heartburn. -for the last 10 days -after heavy meal in the afternoon Ramiro denies dysphagia. Ramiro denies a history of ulcers/ peptic ulcer disease. Ramiro has a hx of A.Fib AND HTN, he follows with [facility]. Last OV 07/2024- on eliquis AND amiodarone AND digoxin. He denies CP, +SOB, dizziness, +palpitations, syncope, edema, recent hospitalizations -PFTS completed 09/25/24 showed small airway dx with significant bronchodilator response. Ramiro has a hx of prostate cancer with radiation (2021). Ramiro has undergone prior endoscopy. Last colonoscopy was 05/2022- [facility] -no polyps -previous to this colonoscopy, polyps every time Current Outpatient Medications Medication Sig digoxin (LANOXIN) 125 mcg (0.125 mg) tablet Take 125 mcg by mouth once daily. oxybutynin ER (DITROPAN XL) 10 mg 24 hr tablet Take 10 mg by mouth once daily. amLODIPine (NORVASC) 10 mg tablet Take 1 tablet by mouth every afternoon. apixaban (ELIQUIS) 5 mg tab(s) Take 5 mg by mouth two times a day. Cetirizine (ZYRTEC) 10 mg cap Take 1 capsule by mouth as needed. furosemide (LASIX) 40 mg tablet Take 40 mg by mouth once daily. MULTIVITAMIN ORAL Take 1 tablet by mouth once daily. No current facility-administered medications for this visit. ALLERGIES: Patient has no known allergies. PAST MEDICAL HISTORY Diagnosis Date Adenocarcinoma (HCC) Atrial fibrillation (HCC) BPH with obstruction/lower urinary tract symptoms Essential hypertension Nonrheumatic mitral valve insufficiency Prostate disease Prostate enlargement SOBOE (shortness of breath on exertion) Syncope PAST SURGICAL HISTORY Procedure Laterality Date COLONOSCOPY 03/07/2007 NEEDS ONE EVERY 3 YEARS CYSTOSCOPY HEART CATHETERIZATION Left 04/12/2001 LAP UMBILICAL HERNIA REPAIR PAST SURGICAL HISTORY OF FATTY TUMOR REMOVED. PAST SURGICAL HISTORY OF LEFT HAND ACCIDENT, INJECTED WITH HYDRAULIC OIL. RADICAL PROSTATECTOMY REMOVE CATARACT, INSERT LENS, INTRACAPSUL TONSILLECTOMY AND ADENOIDECTOMY HX VASECTOMY FAMILY HISTORY Problem Relation Age of Onset Cancer Mother Breast Cancer Mother Hypertension Mother Cancer Father Prostate Cancer Father Hypertension Father Colon Cancer Brother SOCIAL HISTORY[1] REVIEW OF SYMPTOMS: REVIEW OF SYSTEMS: General: The patient denies fatigue, denies weight loss, denies weight gain, denies feeling hot, and feelings of cold. Eyes: The patient denies glaucoma, denies eye injury/surgery, denies glasses or contacts. Ear/Nose/Throat: The patient denies allergies, denies hayfever, denies ear infections, and denies bloody noses. Cardiovascular: The patient denies chest pain, denies heart disease, + high blood pressure, denies high cholesterol, and denies poor circulation. Respiratory: The patient denies tuberculosis, denies pneumonia, denies frequent cough, + shortness of breath, and denies coughing up blood. Gastrointestinal: The patient denies difficulty swallowing, denies acid reflux, denies ulcers, denies jaundice/hepatitis, denies gallbladder problems, denies vomiting, denies black or tarry stools, + hemorrhoids, + bleeding from rectum, denies diverticulitis, denies constipation, denies diarrhea, denies loss of stool control, and denies hernias. Kidney/Bladder: The patient denies kidney stones, denies urine infections, and denies bloody urine. Skin: The patient denies a history of skin cancer, denies bleeding/changing moles, and denies a history of skin rash. Neurologic: The patient denies a history of epilepsy/convulsions, denies headaches, denies head/spinal injuries, and denies stroke/TIA. Psychiatric: The patient denies psychiatric medications, denies depression, and denies voices. Endocrine: The patient denies thyroid disorders, denies diabetes, and denies hormonal problems. Hematologic: The patient denies a history of bruising, denies bleeding, and denies anemia. Infections: The patient + a history of measles and mumps, denies rheumatic fever, and denies sexually transmitted diseases. Musculoskeletal: The patient denies back pain/injury, denies back problems, denies sciatica, d (more content not included)... 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 MICRO - Microbiology PROCEDURE: Stool Culture [...] Locations *1: This test was performed at: [address]04-10-2025 Note. MICRO - Microbiology PROCEDURE: Shiga Toxins 1 and 2 [[id number]: [id number] ^1 *1] SOURCE: Stool BODY SITE: COLLECTED [...] Locations *1: This test was performed at: [address]03-21-2025 Evaluation note* Diagnosis Onset Date Resolution Status Admit Date ERNESTO (obstructive sleep apnea) acute May 25, 2024 8:44am Asymptomatic PVCs chronic May 062024 8:44am Essential hypertension chronic Ma [facility] 2024 8:44am Nonrheumatic mitral (valve) insufficiency chronic May 25, 2024 8:44am Paroxysmal atrial fibrillation chron ic May 25, 2024 8:44am [facility] Work Phone: 1(289) 433-294103-21-2025 Evaluation note* Diagnosis Onset Date Resolution Status Admit Date ERNESTO (obstructive sleep apnea) acute May 25, 2024 8:44am Asymptomatic PVCs chronic May 062024 8:44am Essential hypertension chronic Ma [facility] 2024 8:44am Nonrheumatic mitral (valve) insufficiency chronic May 25, 2024 8:44am Paroxysmal atrial fibrillation chron ic May 25, 2024 8:44am Essential hypertension chronic Ma y 2024 12:51pm [facility] current use of 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 chronic July 10, 2024 12 :51pm Paroxysmal atrial fibrillation chron ic July 10, 2024 12:51pm Biochemically recurrent castration-sensitive adenocarcinoma of prostate acute July 102024 1:59pm Essential hypertension chronic Ma y 2024 8:39am 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 chronic August 01, 2024 8 :39am Paroxysmal atrial fibrillation chron ic August 01, 2024 8:39am [facility] Work Phone: 1(741) 610-835403-21-2025 Evaluation note* Diagnosis Onset Date Resolution Status Admit Date ERNESTO (obstructive sleep apnea) acute May 25, 2024 8:44am Asymptomatic PVCs chronic May 062024 8:44am Essential hypertension chronic Ma [facility] 2024 8:44am Nonrheumatic mitral (valve) insufficiency chronic May 25, 2024 8:44am Paroxysmal atrial fibrillation chron ic May 25, 2024 8:44am Essential hypertension chronic Ma y 2024 12:51pm 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 chronic July 10, 2024 12 :51pm Paroxysmal atrial fibrillation chron ic July 10, 2024 12:51pm Biochemically recurrent castration-sensitive adenocarcinoma of prostate acute July 102024 1:59pm Dyspnea on exertion acute July 062024 8:39am On amiodarone therapy acute August 01, 2024 8:39am Essential hypertension chronic Ma y 2024 8:39am [facility] current use of 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 chronic August 01, 2024 8 :39am Paroxysmal atrial fibrillation chron ic August 01, 2024 8:39am [facility] Work Phone: 1(151) 758-405009-24-2024 History of Present illness Narrative* Maurice Fulton MD - 11/29/2023 9:15 AM EDT [facility] Cardiology Note Chief Complaint: [...] and was asymptomatic initially. Records from the [facility] are reviewed. [facility] [place] [facility] shortness of breath and fatigue during sinus [...] normal. Laboratory Tests: No results found for: "WBC", "HGB", "HCT", "MCV", "PLT" No results found for: "GLUCOSE", "CALCIUM", "NA", "K", "CO2", "CL", "BUN", CREATININE @LASTCMP@ No results found for: "CHLPL", "CHOL" No results found for: "TRIG" No results found for: "HDL" No results found for: "LDLCALC" Assessment and Plan: Atrial fibrillation: Paroxysmal with [...] from the atrial fibrillation. documented in this [facility]09-18-2023 Note* Exam Date Time Procedure Performing Provider Status 11/22/22 7:40 AM Echocardiogram, Adult (AOH) Auth (Verified) [facility] 03-15-2023 Evaluation + Plan noteExtracted from: Title:Clinical Document Author:LAURIE QUINONES DO D ate:05/19/22 [place] ADMISSION HISTORY AN D PHYSICIAL CHIEF COMPLAINT: Personal history of colon polyps HISTORY OF PRESENT ILLNESS: Personal history of colon polyps, last colonoscopy 3 to 4 years ago REVIEW OF SYSTEMS: Constitutional: denies weight loss Cardiovascular:denies chest pain, palpitations Respiratory:denies shortness of breath Gastrointestinal:no abd pain Musculoskeletal: no arthralgias Skin: no rashes . 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 General instructions Take ctrs-nhq-utiprub and prescription medicines only as told by [...] 06/13/2016 Document Revised: 05/22/2018 Document Reviewed: 06/13/2016 [employer] Patient Education 2020 ADMETA. 05/19/2022 08:47:53 Colonoscopy, Adult, Care After, Sxbv-qp-Guia Colonoscopy, Adult, Care After This sheet gives [...] are soft and easy to digest. Take uukw-bvi-izmqxhc or prescription medicines only as told by [...] 03/26/2011 Document Revised: 12/22/2017 Document Reviewed: 11/15/2016 [employer] Patient Education [employer] Follow Up Care 05/12/2022 14:43:57 With:AISSATOU WEBSTER Address: [address] [facility] [place] [address] [phone] When: Unknown [facility] 03-15-2023 Anesthesiology Consult note Patient: [...] by AISHWARYA WATKINS on 05/19/2022 09:18 AM [facility]03-15-2023 Summary of episode note Discharge Instructions Thank you for allowing [facility] to assist you with your healthcare needs. The following is importantdischarge information regarding your hospital visit. Your Care Team AISSATOU WEBSTER What to do next Instructions From Your Doctor Brooks Marcus today Follow Up Appointments Follow Up with AISSATOU WEBSTER When Where: [address] [facility] [place] [address] [phone] The Following Activity and Diet Have Been [...] before eating solid foods. General instructions Take vwru-lvp-wyfemhh and prescription medicines only as told by [...] 06/13/2016 Document Revised: 05/22/2018 Document Reviewed: 06/13/2016 [employer] Patient Education 2020 ADMETA. Colonoscopy, Adult, Care After This sheet gives [...] are soft and easy to digest. Take cmbv-xzq-iwkwoec or prescription medicines only as told by [...] 03/26/2011 Document Revised: 12/22/2017 Document Reviewed: 11/15/2016 [employer] Patient Education 2020 ADMETA. Additional Information VACCINATE! IT SAVES LIVES! Members of the community who have not yet received the COVID-19 vaccine and would like to receive it can visit one of [facility] vaccine clinics. There are many vaccine clinic locations within the [facility]. For locations and available times, please visit [email or web address] It is important to note that some COVID mobile vaccine clinics are held outdoors and may be canceled in rainy or stormy conditions. To learn more about pediatric vaccinations (ages 5-11), we invite you to visit the [facility] webpage. [email or web address]://[email or web address]/[email or web address] [email or web address] learn more about the COVID-19 vaccine, we invite you to visit the CDC website for a list of frequently asked questions. https://www.cdc.gov/coronavirus/2019-ncov/vaccines/faq.html [facility] Patient Portal Access Instructions: Stay connected with your healthcare team and access your personal medical information anytime with the [facility] Patient Portal.If you would like a full copy of your medical records, please contact the [facility] Medical Records Department, Tuesday through Tuesday between 8a.m. and 4:30p.m. Please follow the directions below to access the portal: 1.Access the email account you provided upon registration to the [facility].2.Look for an invitation email from [facility].3.Open the email and access the invitation link: Accept Invitation to GómezMeiyou4.Fill in the required amaya to create your account. Sign into [email or web address] with your username and password that you [...] you will allow to register on the [employer] Patient Portal for access to your information. You can also access the [employer] Patient Portal on the [employer]. Simply click on "Health Records" under "[email or web address]" and then click on the [employer] logo. HOW TO SAFELY DISPOSE OF PRESCRIPTION [...] Call your local pharmacy or go to [email or web address] to find one close to you.3.Make use of household items: Use cat litter or old coffee grounds to dispose medications if other options arenot available. Mix your drugs with these household products, seal them in an airtight container andthrow it into the garbage. Call [facility]: [phone] to be sure your drugs can be [...] Care, Care After Colonoscopy, Adult, Care After, Brxd-ox-Utaj Medication Leaflets My discharge plan and instructions have been reviewed and explained to me and I,RAMIRO LALA understand my current condition and have read and understand these discharge instructions. I have received a written copy of the plan/instructions. If I have questions, I am aware that I should contact my doctor. 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: Date/Time: Relationship to Patient: Witness Name/Signature: Date/Time: [facility]03-15-2023 Anesthesiology Consult note Patient: RAMIRO [...] list: Medical Atrial fibrillation / SNOMED CT 38730087 / Confirmed BMI 34.0-34.9,adult / SNOMED CT 097067479 / Confirmed Anticoagulated / SNOMED CT 855122510 / Confirmed Prostate cancer / SNOMED CT 4629582322 / Confirmed Obese / SNOMED CT 2298652416 / Confirmed Screening for ischemic heart disease / SNOMED CT 622313754 / Confirmed Screening for diabetes mellitus / SNOMED CT 408503088 / Confirmed Screening for osteoporosis / SNOMED CT 709967926 / Confirmed Screening for colon cancer / SNOMED CT 783018780 / Confirmed 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 / SNOMED CT 215851719 / Confirmed Colon polyp / SNOMED CT 398328246 / Confirmed Post-viral cough syndrome / SNOMED CT 9454134330 / Confirmed Prostate mass / SNOMED CT 747088742 / Confirmed Non-tobacco user / SNOMED CT 504818657 / Confirmed Cough syncope / SNOMED CT 814811045 / Confirmed, Active Problems (15) Anticoagulated Atrial fibrillation BMI 34.0-34.9,adult Colon polyp Cough syncope FPC current use of antithrombotics/antiplatelets Non-tobacco user Obese Post-viral cough syndrome Prostate cancer Prostate mass Screening for colon cancer Screening for diabetes mellitus Screening for ischemic heart disease Screening for osteoporosis Histories Past Medical History: No active or resolved past medical history items have been selected or recorded., AF, BMI 30-35 Family History: Cancer Brother () Hypertension Mother Father Procedure history: Catheter procedure (253121008). Vasectomy (20301393). Hand (198100712). Comments: 09/23/2021 17:24 EDT WINIFRED Smith left hand I&D Cardiac catheterization (68069761). Hernia (822814497). Comments: 09/23/2021 17:23 WINIFRED Cantu umbilical Tonsillectomy (232469107). Social History Social & Psychosocial Habits Alcohol [...] data available , Lab results: 05/19/2022 7:17 [facility] History and Physical . Assessment and Plan [place] [employer]esthesiologists (ASA) physical status classification: Class III. Anesthetic Preoperative Plan Premedication: None. Anesthetic technique: MAC. Induction: intravenously. Postoperative pain management: Per surgeon. Risks discussed: nausea, vomiting, headache, sore throat, dental injury, hypotension, allergic reaction, serious complications. Informed consent: signed by patient. Digitally Signed by AISHWARYA WATKINS on 05/19/2022 08:37 AM [facility]03-15-2023 Note [place] ADMISSION HISTORY AND PHYSICIAL CHIEF COMPLAINT: Personal history of colon polyps HISTORY OF PRESENT ILLNESS: Personal history of colon polyps, last colonoscopy 3 to 4 years ago REVIEW OF SYSTEMS: Constitutional: denies weight loss Cardiovascular:denies chest pain, palpitations Respiratory:denies shortness of breath Gastrointestinal:no abd pain Musculoskeletal: no arthralgias Skin: no rashes . ACTIVE PROBLEMS: (15) Anticoagulated (310936588) Atrial fibrillation (57063320) BMI 34.0-34.9,adult (110202930) Colon polyp (186519043) Cough syncope (033469976) FPC current use of antithrombotics/antiplatelets (344088998) Non-tobacco user (712276231) Obese (5479653964) Post-viral cough syndrome (6931273214) Prostate cancer (5581864524) Prostate mass (447141241) Screening for colon cancer (933946392) Screening for diabetes mellitus (465380333) Screening for ischemic heart disease (854774025) Screening for osteoporosis (293410586) MEDICATIONS: Active Inpt Meds: None Active PRN [...] LAURIE QUINONES DO on 05/19/2022 07:19 AM [facility]07-27-2022 SARS-CoV-2 (COVID-19) RNA AYLIN+probe Ql (Nph)Negative (09/30/21 12:00 PM)AO Auto Urine SSEvaluation + Plan note No data available for this section [facility] Evaluation noteNo assessment information available [facility] Work Phone: Evaluation note* Diagnosis Onset Date Resolution Status Asymptomatic PVCs acute Essential hypertension acute New onset atrial fibrillation acute Preoperative cardiovascular examination acute [facility] Work Phone: Evaluation note* Diagnosis Onset Date Resolution Status New onset atrial fibrillation acute Preoperative cardiovascular examination acute Asymptomatic PVCs chronic Essential hypertension chron ic Asymptomatic PVCs chronic Essential hypertension chron ic Paroxysmal atrial fibrillation chronic [facility] Work Phone: Evaluation note* Diagnosis Onset Date Resolution Status 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 Asymptomatic PVCs chronic Essential hypertension chron ic Paroxysmal atrial fibrillation chronic 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 [facility] Work Phone: Evaluation note* Diagnosis Onset [...] recurrent cast ration-sensitive adenocarcinoma of prostate acute [facility] Work Phone: Evaluation note* Diagnosis Onset [...] recurrent cast ration-sensitive adenocarcinoma of prostate acute [facility] Work Phone: Evaluation note* Diagnosis Onset [...] acut e Malignant neoplasm of prostate acute [facility] Work Phone: Evaluation note* Diagnosis Onset [...] acut e Malignant neoplasm of prostate acute [facility] Work Phone: Evaluation note* Diagnosis Onset Date Resolution Status Hypersomnolence acute Asymptomatic PVCs chronic Essential hypertension chron ic Nonrheumatic mitral (valve) insufficiency chronic Paroxysmal atrial fibrillation chronic [facility] Work Phone: Evaluation note* Diagnosis Onset Date Resolution Status Lipoma of face acute Mass of face acute 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 [facility] Work Phone: Evaluation note* Diagnosis Onset Date Resolution Status 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 [facility] Work Phone: Evaluation note* Diagnosis Paroxysmal atrial fibrillation (HCC) Atrial fibrillation [facility] Diagnosis BRBPR (bright red blood per rectum)- Primary Hemorrhage of rectum and anus Melena Blood in stool Heart burn Heartburn [facility] Diagnosis Migraine without status migrainosus, not intractable, unspecified migraine type- Primary History of prostate cancer Personal history of malignant neoplasm of prostate BMI 36.0-36.9,adult Body Mass Index 36.0-36.9, adult Obstructive sleep apnea (adult) (pediatric) Atrial fibrillation, unspecified type (HCC) Essential hypertension Unspecified essential hypertension Right bundle branch block Coronary artery disease involving agdaagux coronary artery of agdaagux heart without angina pectoris Gastroesophageal reflux disease without esophagitis Esophageal reflux Stage 2 chronic kidney disease [facility]* Diagnosis BRBPR (bright red blood per rectum) Hemorrhage of rectum and anus Melena Blood in stool Heart burn Heartburn [facility]* Diagnosis Onset Date Resolution Status Admit Date Dyspnea on exertion acute Septe mb2024 8:50am On amiodarone therapy acute Sep tember 2024 8:50am Essential hypertension chronic Se ptember 2024 8:50am 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 chronic November 23, 2024 8:50am Paroxysmal atrial fibrillation chron ic November 23, 2024 8:50am [facility] Work Phone: Hospital Discharge instructions No data available for this section [facility] Hospital Discharge instructions Additional Instructions Implant Used?: Yes [facility] Work Phone: Progress note No data available for this section [facility] Progress note Author Marsha Kerr [facility] Note Date/Time November 23, 2024 9:32am [facility] [address] [place] [address] OFFICE VISIT Date of Service: 11/23/24 MR#: [id number] Acct: [id number] Name: RAMIRO LALA Rep #: [id number] : 1950 Provider: JAZMÍN Mosley Age/Sex: 74/M Location: [facility] [place] Status: Signed HPI HPI History of Present Illness Details: Ramiro Lala is a 74-year-old male who presents today for office follow-up for monitoring his cardiovascular health. Patient has a history of atrial fibrillation and hypertension. Patient was seen 05/25/2024 and at that time patient was instructed to decrease his amlodipine to 5 mg a day and continue hismetoprolol. Patient underwent a 48-hour Holter monitor that [...] follow-up here in office 07/10/2024, patient was instructedto complete a full 7 days of dose of amiodarone 200 mg and then decrease to 100 mg daily. 48-hour Holter monitor done in August 2024 demonstrated sinus rhythm with first-degree AV block with paroxysmal atrial fibrillation/flutter and occasional PVCs. Atrial fibrillation burden decreased to 13.9%. He is now on amiodarone at 200 mg a day. He is still feeling palpitations. He thinks that he has the Atrial fib on/off t/o the day. He does feel SOB with his Afib. He does not have any chest pain. He does have issues with heartburn, he recently had an EGD. He is now on a PPI. BP has been running higher again. He finds thathe does not want to exercise, he is more fatigued. He is using his CPAP. 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 Is patient in pain?: No Allergies No Known Allergies Allergy (Verified 11/23/24 08:55) Medications ?Medication ?Instructions ?Recorded ?Confirmed ?Type apixaban 5 mg tablet (Eliquis) 5 mg PO BID blood thinn er #60 tabs 11/18/22 11/23/24 Rx furosemide 40 mg tablet 40 mg PO MOTUWETHFR 08/25/23 11/23/24 History multivitamin 1 tab PO DAILY 08/25/2311/05 History oxybutynin chloride 10 mg 10 mg PO QDAY 11/25/2311/23 History tablet,extended release 24 hr cetirizine 10 mg tablet (24Hour 10 mg PO DAILY PRN all ergy symptoms 06/21/24 11/23/24 History Allergy) amlodipine 10 mg tablet 10 mg PO DAILY #90 tabs 05/0 08/2911/23/24 Rx digoxin 125 mcg (0.125 mg) tablet 125 mcg PO QDAY #30 tabs 08/29/24 11/23/24 Rx amiodarone 200 mg tablet 200 mg PO QDAY #90 tabs 07/09/2811/23/24 Rx lisinopril 10 mg tablet 10 mg PO QDAY #90 tabs 11/2311/23/24 Rx pantoprazole 20 mg tablet,delayed 20 mg PO QDAY 11/23/24 History release Ejection fraction %: 60 Have you fallen [...] echocardiogram History of left heart catheterization (LHC) (~04/12/01) Essential hypertension New onset atrial fibrillation Cancer [...] and SOB at rest; Negative for SOB orthopnea\\SOB lying down GI GI: Positive for heartburn; Negative nausea, vomiting, bright, red blood in stools or black,tarry stools : Negative for hematuria Neuro Neuro: Negative for dizziness, lightheadedness, near syncope, syncope, frequent falls, headache(s), weakness or blurry vision Endo Endo: Negative for fatigue Cardiology Exam Const Appearance: cooperative, comfortable, no acute distress and well developed; Negative diaphoretic or ill appearing Nutritional Appearance: obese Orientation: alert and oriented x3 Ambulating without assistive device Head Head: normal to inspection, normocephalic and atraumatic Ears: hearing grossly normal bilaterally Nose: external nose normal and Negative epistaxis Face and Sinus: face symmetric Eyes General: appearance normal, both eyes and all related structures Eyelids: eyelids normal Conjunctivae: conjunctivae normal; Negative scleral icterus EOM: EOM intact bilaterally Neck Neck: no JVD Carotids: normal carotid upstroke; Negative bruit Neck Mass: Negative Neck mass Chest Chest inspection: normal respiratory effort; Negative respiratory distress, audible wheezes or tachypneic Auscultation: Bilateral: Clear to Auscultation Cardio Rate: regular rate Rhythm: regular rhythm Heart sounds: S1 normal and S2 normal; Negative rub, gallop or murmur GI GI: obese Neuro General: patient alert, patient awake, patient oriented x3 and moves all extremities Skin Skin: no rashes or lesions noted Extremities Pulses: Normal: Right Posterior Tibial Pulse, Left Posterior Tibial Pulse, RightRadial Pulse and Left Radial Pulse Lower Extremity Edema: None: Bilateral Psych Psychological: normal affect Supplemental Info Supplemental Information Echocardiogram from 11/22/2022: Summary: 1. Left ventricle: The cavity size is normal. Wall thickness is at the upper limits of normal. Systolic function is normal. The estimated ejection fractionis 60- 65%. Wall motion is normal; there are no regional wall motion abnormalities. Normal diastolic function. 2. Right atrium: The atrium is mildly dilated. The estimated right atrial pressure is 3 mmHg. Echocardiogram from 09/29/2021: Interpretation Summary Left ventricular systolic function is normal. The estimated ejection fraction is 60 %. The left atrium is moderately enlarged. The right atrium is mildly enlarged. Moderate (2+) eccentric mitral valve insufficiency. Trivial tricuspid valve insufficiency. Trivial aortic valve insufficiency. Unable to estimate RV systolic pressure due to insufficient tricuspid regurgitant envelope. Unable to assess diastolic dysfunction. Stress Test Report 10-15-2021 Impression: 1. Technically adequate (percent predicted maximal heart rate greater than 85%)exercise tolerance test 2. Peak exercise ECG with continued atrial fibrillation with no obvious ECG changes 3. There were occasional PVCs pretest, during exercise, and recovery 48-hour Holter monitor 06/06/2024 Interpretation Atrial fibrillation noted 48.6% of the time. Average heart rate of 72 bpm and normal sinus rhythm with paroxysmal atrial fibrillation, minimum heart rate 38 bpm, maximum heart rate 158 bpm both in atrial fibrillation. 2.0% ventricular ectopy 1.1% supraventricular ectopy Holter monitor from 04/18/2023 Normal sinus rhythm with occasional sinus arrhythmia with occasional PVCs/PACs: Minimum heart rate 36 bpm. Average heart rate 67 bpm. Maximal heart 121 bpm. Ventricular ectopy 0.2%. Supraventricular ectopy 1.3%. Longest R to R interval 2.1 seconds. No atrial fibrillation noted. No ventricular tachycardia noted. The patient kept a 48-hour diary and noted shortness of breath and dizziness/lightheaded which occasionally correlated with ectopy. Diagnostics: Electrocardiogram Echocardiogram Stress Test Abdomen/Pelvis CT Past Visits: Cardiology Visit Today Assessment and Plan Assessment and Plan (1) Paroxysmal atrial fibrillation: Status: Chronic Plan: Patient has a known history of paroxysmal atrial fibrillation. Patient is having more frequent episodes. He does not know if its made any difference being on the amiodarone. For now we will continue with his amiodarone and digoxin in addition to his Eliquis. Would like to Gideon an echocardiogram to reassess his atrial size in addition to his mitral valve to see if this is worsening and causing an increase. Can also consider referring back to EP. (2) FPC current use of 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: Status: Chronic Plan: Patient will continue Eliquis 5 mg twice daily (3) On amiodarone therapy: Status: Acute Plan: This was initiated 06/14/24 with a few dose adjustments as there were concerns that initial loading dose was causing side effects. Patient has completed full loading dose and is now on maintenance therapy at 200 mg daily. EKG in office today demonstrated sinus bradycardia at 50 bpm with QTc 397. Will continuje to monitor thyroid and hepatic panels in addtion to PFTs. (4) Essential hypertension: Status: Chronic Plan: BP is elevated. Will restart his lisinopril at 10 mg daily. He will continue with is amlodipine. Will follow. (5) Dyspnea on exertion: Status: Acute Plan: With patient's increase in fatigue and increase with shortness of breath with exertion would like to obtain a stress test to evaluate for underlying ischemia. Will also obtain an echocardiogram. Orders: Orders 12 Lead EKG performed by [facility] Today I48.0 - Paroxysmal atrial fibrillation Echo Complete Today I34.0 - Nonrheumatic mitral (valve) insufficiency Nuclear Stress Test - Treadmil Today I48.0 - Paroxysmal atrial fibrillation, R06.09 - Other forms of dyspnea Medications: New lisinopril 10 mg PO QDAY 90 tabs 3RF Plan Thank you for allowing me to participate in the care of your patient. Please don't hesitate to call if any issues arise. This note was generated using a voice recognition system and there may be incorrect words, spelling, or punctuation that were not noted when reviewing theoffice note prior to saving. Portions of this documentation were copied and pasted from previous office visitnotes to provide a cohesive continuity of the history. The note has been reviewed, edited, and updated, as necessary. 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 Z79.01 On amiodarone therapy Z79.899 Essential hypertension I10 Dyspnea on exertion R06.09 Clinical Quality Measures Falls Risk Screening/Assistive Devices Have you fallen in the past year?: No Cardiac Ejection fraction %: 60 11/23/24 0939 <Electronically signed by Marsha River> Date _ Marsha [facility]YOL[facility] Signature: Date (if applicable) CC: ~ [facility] Work Phone: Reason for referral (narrative)No reason for referral information availableWProtestant [facility]acon[facility] Work Phone: Reason for visit Narrative* Outpatient Procedure (Routine) - Closed Specialty Diagnoses / Procedures Referred By Anne Marie antonio Referred To Contact [facility] Diagnoses Melena Heart burn Polyp of colon Procedures EGD DIAGNOSTIC ESOPHAGOGASTRODUODENOSC OPY TRANSORAL DIAGNOSTIC Courtney Flowers APRN.SISAL PICKER [address] [place] [address] Phone: tel: fax: [facility] [address] [place] [address] Referral ID Status Reason Start Date Expiration Date V isits Requested Visits Authorized [id number] Closed Auto-Generate d Referral 10/22/2024 02/19/2025 1 1 [facility] Summary Purpose Family History No Family History Records Found Relationship Condition Age at Onset Recorded Date/T celia mother Hypertension Unknown Malignant neoplasm Unknown father Hypertension Unknown Advance Directives No Advanced Directives Records Found Advance Directive Response Recorded Date/ Time Advance Directives No June 22 2 016 2:58pm Living Will No June 23, 2015 2:58pm Power of Insurance Account Manager No June 22 2:58pm Advance Directive Response Recorded Date/ Time Advance Directives No June 22, 2 016 2:58pm Living Will Yes September 16, 2021 2:24pm Power of Insurance Account Manager Yes September 16 2:24pm Advance Directive Response Recorded Date/ Time Name of Medical Power of Insurance Account Manager SPOUSE September 16, 2021 2:24pm Advance Directives No June 22 2 016 2:58pm Living Will Yes September 16, 2021 2:24pm Power of Insurance Account Manager Yes September 16 2:24pm Advance Directive Response Recorded Date/ Time Name of Medical Power of Insurance Account Manager SPOUSE September 16, 2021 2:24pm Name of Medical Power of Insurance Account Manager Mitzi saba December 18, 2021 4:13pm Advance Directives No June 22, 2 016 2:58pm Living Will Yes December 18 4:13pm Power of Insurance Account Manager Yes December 18, 2021 4:13pm Advance Directive Response Recorded Date/ Time Advance Directives No June 22, 2 016 1:58pm Living Will Yes December 18 3:13pm Power of Insurance Account Manager Yes December 18, 2021 3:13pm Name of Medical Power of Insurance Account Manager Mitzi Lam de December 18, 2021 3:13pm Advance Directive Response Recorded Date/ Time Advance Directives No June 22, 2 016 2:58pm Living Will Yes December 18 4:13pm Power of Insurance Account Manager Yes December 18, 2021 4:13pm Advance Directive Response Recorded Date/ Time Advance Directives No June 22, 2 016 1:58pm Living Will Yes October 14th, 20 22 3:13pm Power of Insurance Account Manager Yes December 18, 2021 3:13pm Advance Directive Response Recorded Date/ Time Name of Medical Power of Insurance Account Manager Karly mcnulty March 03, 2023 10:30am Advance Directives No June 22 016 1:58pm Living Will Yes March 03, 10:30am Power of Insurance Account Manager Yes March 03, 2023 10:30am Name of Medical Power of Insurance Account Manager KARLY SEGURA January 11, 2023 11:24am Advance Directive Response Recorded Date/ Time Advance Directives No June 22 016 2:58pm Living Will Yes March 03, 11:30am Power of Insurance Account Manager Yes March 03, 2023 11:30am Advance Directive Response Recorded Date/ Time Living Will Yes March 03 11:30am Do you have a Healthcare Power of Insurance Account Manager? Yes March 03, 2023 11:30am Advance Directives No June 22 016 2:58pm Advance Directive Response Recorded Date/ Time Living Will Yes March 03 11:30am Do you have a Healthcare Power of Insurance Account Manager? Yes March 03, 2023 11:30am Living Will No June 21, 2024 9:33am Do you have a Healthcare Power of Insurance Account Manager? 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 July 10, 2024 1:59pm Dyspnea on exertion August 01, 2024 8:39a m On amiodarone therapy August 01, 2024 8:3 9am Essential hypertension August 01, 2024 8: 39am [facility] current use of 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 M ay 2024 [...] Essential hypertension July 10, 2024 12: 51pm [facility]PC current use of 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 M ay 2024 12:51pm Paroxysmal atrial fibrillation July 10, 2024 12:51pm 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 July 10, 2024 1:59pm Dyspnea on exertion August 01, 2024 8:39a m On amiodarone therapy August 01, 2024 8:3 9am Essential hypertension August 01, 2024 8: 39am [facility]PC current use of 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 M ay 2024 8:39am Paroxysmal atrial fibrillation August 01, 2024 8:39am Chief Complaint Admit Date 1 WEEK MED CHANGE June 25, 2024 10: 13am E ORDER July 06, 2024 8:26am Medication Changes/See Note July 10 12:51pm 6 MONTH PROSTATE July 10, 2024 1:59pm 1 M FU/Needs EKG August 01, 2024 8:39a m AFIB August 21, 2024 7:55 am Atrial fibrillation August 21, 2024 8:08 am E ORDERS September 21, 2024 9:28 am I48.0 - Paroxysmal atrial fibrillation [facility] 2024 9:00am Chief Complaint Admit Date AFIB August 21, 2024 7:55 am Atrial fibrillation August 21, 2024 8:08 am E ORDERS September 21, 2024 9:28 am I48.0 - Paroxysmal atrial fibrillation [facility] 2024 9:00am 6 M FU November 23, 2024 8:50am Reason for Visit Admit Date Dyspnea on exertion November 23, 2024 8:50am On amiodarone therapy November 23 8:50am Essential hypertension November 23, 2 025 8:50am [facility]PC current use of 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 S eptember 2024 8:50am Paroxysmal atrial fibrillation November 23, 2024 8:50am Additional Source Comments (unrecognized sect ion and content) No Status Records FoundNo Status Records FoundNo Status Records FoundNo Status Records FoundNo Status Records FoundNo Status Records FoundNo Status Records Found INFORMATION SOURCE (unrecogn ized section and content) DATE CREATED AUTHOR 07/07/2020 [facility] DATE CREATED AUTHOR AUTHOR'S ORGANIZ ATION 02/08/2023 [facility] ([place]) DATE CREATED AUTHOR AUTHOR'S ORGANIZ ATION 12/01/2023 [facility] DATE CREATED AUTHOR AUTHOR'S ORGANIZ ATION 06/18/2024 [facility] DATE CREATED AUTHOR AUTHOR'S ORGANIZ ATION 11/01/2024 [facility] DATE CREATED AUTHOR AUTHOR'S ORGANIZ ATION 11/14/2024 [facility] DATE CREATED AUTHOR AUTHOR'S ORGANIZ ATION 12/21/2024 [facility] Goals (unrecognized section and content) [...] Hussein Singh MD Family Provider Active Aissatou Webster PERIPATOLOGIST, PERIPATOLOGIST-C Primary Care Provider Active Team Status: Inactive Member Role Status Dates Aissatou Webster NP, PERIPATOLOGIST-C Primary Care Provider Active Dr. Aneudy Santiago MD Admit Provid er, Attending Provider, Referring Provider Active Team Status: Inactive Member Role Status Dates Aissatou Webster NP, PERIPATOLOGIST-C Primary Care Provider Active Dr. Aneudy Santiago MD Attending Provider, Referr ing Provider Active Team Status: Inactive Member Role Status Dates Aissatou Webster PERIPATOLOGIST, PERIPATOLOGIST-C Primary Care Provider, Referri ng Provider Active Yvon Yang PERIPATOLOGIST, PERIPATOLOGIST-C Attending Provider Active Team Status: Inactive Member Role Status Dates Aissatou Webster PERIPATOLOGIST, PERIPATOLOGIST-C Primary Care Provider Active Dr. Yoav Olivares DO Attending Provider Active Dr. Aneudy Santaigo MD Referring Provider Active Team Status: Inactive Member Role Status Dates Aissatou Webster PERIPATOLOGIST, PERIPATOLOGIST-C Primary Care Provider, Referri ng Provider Active Dr. Yoav Olivares DO Attending Provider Active Team Status: Active Member Role Status Dates Aissatou Webster PERIPATOLOGIST, PERIPATOLOGIST-C Primary Care Provider Active Dr. Yoav Olivares DO Attending Provider, Referring P rovider Active Team Status: Inactive Member Role Status Dates Aissatou Webster PERIPATOLOGIST, PERIPATOLOGIST-C Primary Care Provider Active Yvon Yang PERIPATOLOGIST, PERIPATOLOGIST-C Attending Provider, Referring Pro vider Active Team Status: Inactive Member Role Status Dates Aissatou Webster PERIPATOLOGIST, PERIPATOLOGIST-C Primary Care Provider Active Dr. Yoav Olivares DO Attending Provider, Referring P rovider Active Team Status: Inactive Member Role Status Dates Aissatou Webster PERIPATOLOGIST, PERIPATOLOGIST-C Primary Care Provider Active Dr. Ramiro Chang MD Active Dr. Yoav Olivares DO Attending Provider, Referring P rovider Active Team Status: Inactive Member Role Status Dates Aissatou Webster PERIPATOLOGIST, PERIPATOLOGIST-C Primary Care Provider Active Dr. Beto Huizar MD Attending Provider, Refe rring Provider Active Team Status: Inactive Member Role Status Dates Aissatou Webster PERIPATOLOGIST, PERIPATOLOGIST-C Primary Care Provider, Referri ng Provider Active Urmila New PERIPATOLOGIST, PERIPATOLOGIST-C Attending Provider Active Team Status: Active Member Role Status Dates Aissatou Webster PERIPATOLOGIST, PERIPATOLOGIST-C Primary Care Provider Active Yvon Yang PERIPATOLOGIST, PERIPATOLOGIST-C Attending Provider, Referring Pro vider Active Team Status: Active Member Role Status Dates Aissatou Webster PERIPATOLOGIST, PERIPATOLOGIST-C Primary Care Provider Active Yvon Yang PERIPATOLOGIST, PERIPATOLOGIST-C Attending Provider Active Team Status: Inactive Member Role Status Dates Aissatou Webster PERIPATOLOGIST, PERIPATOLOGIST-C Primary Care Provider Active Daina Archibald , PERIPATOLOGIST-C Attending Provider, Referrin g Provider Active Team Status: Inactive Member Role Status Dexter Webster PERIPATOLOGIST, PERIPATOLOGIST-C Primary Care Provider Active Dr. Aneudy Santiago MD Attending Provider Active Team Status: Inactive Member Role Status Dates Aissatou Webster PERIPATOLOGIST, PERIPATOLOGIST-C Primary Care Provider Active Dr. Yoav Olivares DO Attending Provider Active Team Status: Active Member Role Status Dates Aissatou Webster PERIPATOLOGIST, PERIPATOLOGIST-C Primary Care Provider Active Dr. Wagner Adkins MD Attending Provider Activ e Dr. Beto Huizar MD Referring Provider Activ e Team Status: Inactive Member Role Status Dates Aissatou Webster PERIPATOLOGIST, PERIPATOLOGIST-C Primary Care Provider Active Dr. Luis Pringle MD Attending Provider, Emergency Provider Active Team Status: Inactive Member Role Status Dates Aissatou Webster PERIPATOLOGIST, PERIPATOLOGIST-C Primary Care Provider Active Dr. Yoav Olivares DO Attending Provider, Referring P archana Active Dr. Aneudy Santiago MD Other Provider Active Team Status: Active Member Role Status Dates Aissatou Webster PERIPATOLOGIST, PERIPATOLOGIST-C Primary Care Provider Active Team Status: Inactive Member Role Status Dates Aissatou Webster PERIPATOLOGIST, PERIPATOLOGIST-C Primary Care Provider Active Start: April 17, 2024 End: April 17, 2024 Ling Aiken Attending Provider Active Start : April 17, 2024 End: April 17, 2024 Ling Aiken Referring Provider Active Start : April 17, 2024 End: April 17, 2024 Team Status: Inactive Member Role Status Dates Aissatou Webster PERIPATOLOGIST, PERIPATOLOGIST-C Primary Care Provider Active Start: May 25, 2024 End: May 25, 2024 Aissatou Darin PERIPATOLOGIST, PERIPATOLOGIST-C Referring Provider Active Start: May 25, 2024 End: May 25, 2024 Marsah Kerr PA, PA Attending Provider Active Start: May 25, 2024 End: May 25, 2024 Team Status: Inactive Member Role Status Dates Aissatou Darin PERIPATOLOGIST, PERIPATOLOGIST-C Primary Care Provider Active Start: June 06, 2024 End: June 06, 2024 Marsha Kerr PA, PA Attending Provider Active Start: June 06, 2024 End: June 06, 2024 Marsha Kerr PA, PA Referring Provider Active Start: June 06, 2024 End: June 06, 2024 Team Status: Active Member Role Status Dates Aissatou Webster PERIPATOLOGIST, PERIPATOLOGIST-C Primary Care Provider Active Start: June 06, 2024 Dr. Momo Alvarez MD Attending Provider Active S tart: June 06, 2024 Marsha Kerr PA, PA Referring Provider Active Start: June 06, 2024 Team Status: Inactive Member Role Status Dates Aissatou Webster PERIPATOLOGIST, PERIPATOLOGIST-C Primary Care Provider Active Start: June 21, 2024 End: June 21, 2024 Dr. Carly Adams , Emergency Provider Active S tart: June 21, 2024 End: June 21, 2024 Team Status: Inactive Member Role Status Dates Aissatou Webster PERIPATOLOGIST, PERIPATOLOGIST-C Primary Care Provider Active Start: June 21, 2024 End: June 21, 2024 Dr. Carly Adams , Attending Provider Active S tart: June 21, 2024 End: June 21, 2024 Dr. Carly Adams , Emergency Provider Active S tart: June 21, 2024 End: June 21, 2024 Team Status: Inactive Member Role Status Dates Aissatou Webster PERIPATOLOGIST, PERIPATOLOGIST-C Primary Care Provider Active Start: June 25, 2024 End: June 25, 2024 Aissatou Webster PERIPATOLOGIST, PERIPATOLOGIST-C Referring Provider Active Start: June 25, 2024 End: June 25, 2024 Marsha NOYOLA, PA Attending Provider Active Start: June 25, 2024 End: June 25, 2024 Team Status: Inactive Member Role Status Dates Aissatou Webster PERIPATOLOGIST, PERIPATOLOGIST-C Primary Care Provider Active Start: July 06, 2024 End: July 06, 2024 Dr. Yoav Olivares DO Attending Provider Active Start: July 06, 2024 End: July 06, 2024 Dr. Yoav Olivares DO Referring Provider Active Start: July 06, 2024 End: July 06, 2024 Team Status: Inactive Member Role Status Dates Aissatou Webster PERIPATOLOGIST, PERIPATOLOGIST-C Primary Care Provider Active Start: July 10, 2024 End: July 10, 2024 Aissatou Webster PERIPATOLOGIST, PERIPATOLOGIST-C Referring Provider Active Start: July 10, 2024 End: July 10, 2024 JAZMÍN Sepulveda Attending Provider Active St art: July 10, 2024 End: July 10, 2024 Team Status: Inactive Member Role Status Dates Aissatou Webster PERIPATOLOGIST, PERIPATOLOGIST-C Primary Care Provider Active Start: July 10, 2024 End: July 10, 2024 Dr. Yoav Olivares DO Attending Provider Active Start: July 10, 2024 End: July 10, 2024 Team Status: Inactive Member Role Status Dates Aissatou Webster PERIPATOLOGIST, PERIPATOLOGIST-C Primary Care Provider Active Start: August 01, 2024 End: August 01, 2024 Aissatou Webster PERIPATOLOGIST, PERIPATOLOGIST-C Referring Provider Active Start: August 01, 2024 End: August 01, 2024 JAZMÍN Sepulveda Attending Provider Active St art: August 01, 2024 End: August 01, 2024 Team Status: Inactive Member Role Status Dates Aissatou Webster PERIPATOLOGIST, PERIPATOLOGIST-C Primary Care Provider Active Start: August 21, 2024 End: August 21, 2024 JAZMÍN Sepulveda Attending Provider Active St art: August 21, 2024 End: August 21, 2024 JAZMÍN Sepulveda Referring Provider Active St art: August 21, 2024 End: August 21, 2024 Team Status: Active Member Role/Relationship Status Dates Aissatou Webster PERIPATOLOGIST, PERIPATOLOGIST-C Primary Care Provider Active Team Status: Inactive Member Role/Relationship Status Dates Aissatou Webster PERIPATOLOGIST, PERIPATOLOGIST-C Primary Care Provider Active Start: June 06, 2024 End: June 06, 2024 Marsha Kerr PA, PA Attending Provider Active Start: June 06, 2024 End: June 06, 2024 Marsha Kerr PA, PA Referring Provider Active Start: June 06, 2024 End: June 06, 2024 Team Status: Active Member Role/Relationship Status Dates Aissatou Webster PERIPATOLOGIST, PERIPATOLOGIST-C Primary Care Provider Active Start: June 06, 2024 Dr. Momo Alvarez MD Attending Provider Active S tart: June 06, 2024 Marsha Kerr PA, PA Referring Provider Active Start: June 06, 2024 Team Status: Inactive Member Role/Relationship Status Dates Aissatou Webster PERIPATOLOGIST, PERIPATOLOGIST-C Primary Care Provider Active Start: June 21, 2024 End: June 21, 2024 Dr. Carly Adams DO Attending Provider Active S tart: June 21, 2024 End: June 21, 2024 Dr. Carly Adams DO Emergency Provider Active S tart: June 21, 2024 End: June 21, 2024 Team Status: Inactive Member Role/Relationship Status Dates Aissatou Webster PERIPATOLOGIST, PERIPATOLOGIST-C Primary Care Provider Active Start: June 25, 2024 End: June 25, 2024 Aissatou Webster PERIPATOLOGIST, PERIPATOLOGIST-C Referring Provider Active Start: June 25, 2024 End: June 25, 2024 Marsha NOYOLA, PA Attending Provider Active Start: June 25, 2024 End: June 25, 2024 Team Status: Inactive Member Role/Relationship Status Dates Aissatou Webster PERIPATOLOGIST, PERIPATOLOGIST-C Primary Care Provider Active Start: July 06, 2024 End: July 06, 2024 Dr. Yoav Olivares DO Attending Provider Active Start: July 06, 2024 End: July 06, 2024 Dr. Yoav Olivares DO Referring Provider Active Start: July 06, 2024 End: July 06, 2024 Team Status: Inactive Member Role/Relationship Status Dates Aissatou Webster PERIPATOLOGIST, PERIPATOLOGIST-C Primary Care Provider Active Start: July 10, 2024 End: July 10, 2024 Aissatou Webster PERIPATOLOGIST, PERIPATOLOGIST-C Referring Provider Active Start: July 10, 2024 End: July 10, 2024 JAZMÍN Sepulveda Attending Provider Active St art: July 10, 2024 End: July 10, 2024 Team Status: Inactive Member Role/Relationship Status Dates Aissatou Webster PERIPATOLOGIST, PERIPATOLOGIST-C Primary Care Provider Active Start: July 10, 2024 End: July 10, 2024 Dr. Yoav Olivares DO Attending Provider Active Start: July 10, 2024 End: July 10, 2024 Team Status: Inactive Member Role/Relationship Status Dates Aissatou Webster PERIPATOLOGIST, PERIPATOLOGIST-C Primary Care Provider Active Start: August 01, 2024 End: August 01, 2024 Aissatou Webster PERIPATOLOGIST, PERIPATOLOGIST-C Referring Provider Active Start: August 01, 2024 End: August 01, 2024 JAZMÍN Sepulveda Attending Provider Active St art: August 01, 2024 End: August 01, 2024 Team Status: Inactive Member Role/Relationship Status Dates Aissatou Webster PERIPATOLOGIST, PERIPATOLOGIST-C Primary Care Provider Active Start: August 21, 2024 End: August 21, 2024 JAZMÍN Sepulveda Attending Provider Active St art: August 21, 2024 End: August 21, 2024 JAZMÍN Sepulveda Referring Provider Active St art: August 21, 2024 End: August 21, 2024 Team Status: Active Member Role/Relationship Status Dates Aissatou Webster PERIPATOLOGIST, PERIPATOLOGIST-C Primary Care Provider Active Start: August 21, 2024 Dr. Momo Alvarez MD Attending Provider Active S tart: August 21, 2024 JAZMNÍ Sepulveda Referring Provider Active St art: August 21, 2024 Team Status: Inactive Member Role/Relationship Status Dates Aissatou Webster PERIPATOLOGIST, PERIPATOLOGIST-C Primary Care Provider Active Start: September 21, 2024 End: September 21, 2024 JAZMÍN Sepulveda Attending Provider Active St art: September 21, 2024 End: September 21, 2024 JAZMÍN Sepulveda Referring Provider Active St art: September 21, 2024 End: September 21, 2024 Team Status: Active Member Role/Relationship Status Dates Aissatou Webster PERIPATOLOGIST, PERIPATOLOGIST-C Primary Care Provider Active Start: September 24, 2024 JAZMÍN Sepulveda Attending Provider Active St art: September 24, 2024 Keshawn Saeed PA Referring Provider Active St art: September 24, 2024 Team Status: Inactive Member Role/Relationship Status Dates Aissatou Webster NP, PERIPATOLOGIST-C Primary Care Provider Active Start: September 24, 2024 End: September 24, 2024 JAZMÍN Sepulveda Attending Provider Active St art: September 24, 2024 End: September 24, 2024 Keshawn Saeed PA Referring Provider Active St art: September 24, 2024 End: September 24, 2024 Team Status: Inactive Member Role/Relationship Status Dates Aissatou Webster PERIPATOLOGIST, PERIPATOLOGIST-C Primary Care Provider Active Start: June 25, 2024 End: June 25, 2024 Aissatou Webster NP, PERIPATOLOGIST-C Referring Provider Active Start: June 25, 2024 End: June 25, 2024 Marsha Kerr PA, PA Attending Provider Active Start: June 25, 2024 End: June 25, 2024 Team Status: Inactive Member Role/Relationship Status Dates Aissatou Webster NP, PERIPATOLOGIST-C Primary Care Provider Active Start: July 06, 2024 End: July 06, 2024 Dr. Yoav Olivares DO Attending Provider Active Start: July 06, 2024 End: July 06, 2024 Dr. Yoav Olivares DO Referring Provider Active Start: July 06, 2024 End: July 06, 2024 Team Status: Inactive Member Role/Relationship Status Dates Aissatou Webster NP, PERIPATOLOGIST-C Primary Care Provider Active Start: July 10, 2024 End: July 10, 2024 Aissatou Lorson PERIPATOLOGIST, PERIPATOLOGIST-C Referring Provider Active Start: July 10, 2024 End: July 10, 2024 JAZMÍN Sepulveda Attending Provider Active St art: July 10, 2024 End: July 10, 2024 Team Status: Inactive Member Role/Relationship Status Dates Aissatou Webster PERIPATOLOGIST, PERIPATOLOGIST-C Primary Care Provider Active Start: July 10, 2024 End: July 10, 2024 Dr. Yoav Olivares DO Attending Provider Active Start: July 10, 2024 End: July 10, 2024 Team Status: Inactive Member Role/Relationship Status Dates Aissatou Webster PERIPATOLOGIST, PERIPATOLOGIST-C Primary Care Provider Active Start: August 01, 2024 End: August 01, 2024 Aissatou Webster PERIPATOLOGIST, PERIPATOLOGIST-C Referring Provider Active Start: August 01, 2024 End: August 01, 2024 JAZMÍN Sepulveda Attending Provider Active St art: August 01, 2024 End: August 01, 2024 Team Status: Inactive Member Role/Relationship Status Dates Aissatou Webster PERIPATOLOGIST, PERIPATOLOGIST-C Primary Care Provider Active Start: August 21, 2024 End: August 21, 2024 JAZMÍN Sepulveda Attending Provider Active St art: August 21, 2024 End: August 21, 2024 JAZMÍN Sepulveda Referring Provider Active St art: August 21, 2024 End: August 21, 2024 Team Status: Active Member Role/Relationship Status Dates Aissatou Webster NP, PERIPATOLOGIST-C Primary Care Provider Active Start: August 21, 2024 Dr. Momo Alvarez MD Attending Provider Active S tart: August 21, 2024 JAZMÍN Sepulveda Referring Provider Active St art: August 21, 2024 Team Status: Inactive Member Role/Relationship Status Dates Aissatou Webster NP, PERIPATOLOGIST-C Primary Care Provider Active Start: September 21, 2024 End: September 21, 2024 JAZMÍN Sepulveda Attending Provider Active St art: September 21, 2024 End: September 21, 2024 JAZMÍN Sepulveda Referring Provider Active St art: September 21, 2024 End: September 21, 2024 Team Status: Inactive Member Role/Relationship Status Dates Aissatou Webster NP, PERIPATOLOGIST-C Primary Care Provider Active Start: September 24, 2024 End: September 24, 2024 JAZMÍN Sepulveda Attending Provider Active St art: September 24, 2024 End: September 24, 2024 JAZMÍN Sepulveda Referring Provider Active St art: September 24, 2024 End: September 24, 2024 Team Status: Inactive Member Role/Relationship Status Dates Aissatou Webster NP, PERIPATOLOGIST-C Primary Care Provider Active Start: October 22, 2024 End: October 22, 2024 Dr. Aneudy Santiago MD Attending Provider Active Start: October 22, 2024 End: October 22, 2024 Dr. Aneudy Santiago MD Referring Provider Active Start: October 22, 2024 End: October 22, 2024 Mechanical Engineering Manager Relationship Specialty Start Date End Date Aissatou Webster APRN.SISAL PICKER [address] [place] [address] PCP - General Family Medicine 10/30/24 Mechanical Engineering Manager Relationship Specialty Start Date End Date Aissatou Webster APRN.SISAL PICKER [address] [place] [address] PCP - General Family Medicine 10/30/24 Team Status: Active Member Role/Relationship Status Dates Aissatou Webster NP, PERIPATOLOGIST-C Primary care physician Active Team Status: Inactive Member Role/Relationship Status Dates Aissatou Webster NP, PERIPATOLOGIST-C Primary care physician Active Start: August 21, 2024 End: August 21, 2024 JAZMÍN Sepulveda Attending physician Active S tart: August 21, 2024 End: August 21, 2024 JAZMÍN Sepulveda Referring Provider Active St art: August 21, 2024 End: August 21, 2024 Team Status: Active Member Role/Relationship Status Dates Aissatou Webster NP, PERIPATOLOGIST-C Primary care physician Active Start: August 21, 2024 Dr. Momo Alvarez MD Attending physician Active Start: August 21, 2024 JAZMÍN Sepulveda Referring Provider Active St art: August 21, 2024 Team Status: Inactive Member Role/Relationship Status Dates Aissatou Webster NP, PERIPATOLOGIST-C Primary care physician Active Start: September 21, 2024 End: September 21, 2024 JAZMÍN Sepulveda Attending physician Active S tart: September 21, 2024 End: September 21, 2024 JAZMÍN Sepulveda Referring Provider Active St art: September 21, 2024 End: September 21, 2024 Team Status: Inactive Member Role/Relationship Status Dates Aissatou Webster NP, PERIPATOLOGIST-C Primary care physician Active Start: September 24, 2024 End: September 24, 2024 JAZMÍN Sepulveda Attending physician Active S tart: September 24, 2024 End: September 24, 2024 JAZMÍN Sepulveda Referring Provider Active St art: September 24, 2024 End: September 24, 2024 Team Status: Inactive Member Role/Relationship Status Dates Aissatou Webster NP, PERIPATOLOGIST-C Primary care physician Active Start: October 22, 2024 End: October 22, 2024 Dr. Aneudy Santiago MD Attending physician Active Start: October 22, 2024 End: October 22, 2024 Dr. Aneudy Santiago MD Referring Provider Active Start: October 22, 2024 End: October 22, 2024 Team Status: Inactive Member Role/Relationship Status Dates Aissatou Webster PERIPATOLOGIST, PERIPATOLOGIST-C Primary care physician Active Start: November 23, 2024 End: November 23, 2024 Aissatou Webster PERIPATOLOGIST, PERIPATOLOGIST-C Referring Provider Active Start: November 23, 2024 End: November 23, 2024 Marsha NOYOLA, PA Attending physician Active Start: November 23, 2024 End: November 23, 2024 Care Team (unrecognized sect ion and content) Care Team Personnel Name: AISSATOU WEBSTER TRIAGE RN-SISAL PICKER Position: P4 Advanced Practice Nurse Med Service: Active Provider Member Role: Primary Care Physician Address: Address: [address] [place] [address] [address] [place] [id number] Care Team Related Persons Name: JERRELLIMELDA KARLY Reason for Visit (unrecogniz ed section and content) Reason Comments New Patient PAF Specialty Diagnoses / Procedures Referred By Contact Referred To Contact Electrophysiology / Cardiology Diagnoses Paroxysmal atrial fibrillation (HCC) Procedures [place] OFFICE/OP CONSLTJ NEW/EST PT MOD MDM 40 MINUTES Marsha Kerr PA [address], Saravanan [address] [place] [id number] Maurice Fulton MD [address] [place] [address] Referral ID Status Reason Start Date Expiration Date Visits Re quested Visits Authorized [id number] Closed 10/06/2023 10/05/2024 1 1 Reason Comments Rectal Bleeding Rectal bleeding Specialty Diagnoses / Procedures Referred By Contac t Referred To Contact GENERAL SURGERY Diagnoses Polyp of colon Consult-Colonoscopy Procedures [facility] Jordan MD [address] [place] [address] Phone: tel: fax: Referral ID Status Reason Start Date Expiration Date V isits Requested Visits Authorized [id number] Denied Clearance Not Met -Financial Clearance Bypassed or Pt Declined to Pay 10/22/2024 02/19/2025 1 0 Reason Comments Preparations For Surgery Reason Comments Consult Specialty Diagnoses / Procedures Referred By Contac t Referred To Contact Anesthesiology / ANESTHESIOLOGY Diagnoses Polyp of colon Pre-op examination DOS: 11/07/2024 [facility] EGD/COLONOSCOPY Needs PACC Eliquis, schedule SABIHA. TE to FE. Adenocarcinoma, AFIB, Prostate CA, HTN, Migraines, chart reviewed 10/26/24 [facility] Procedures OFFICE/OUTPATIENT ESTABLISHED HIGH MDM 40 MIN COMPLETE PACC Courtney Flowers APRN.SISAL PICKER [address] [address] Phone: tel: fax: 1, P[facility] [place] [address] [place] [address] Phone: tel: Referral ID Status Reason Start Date Expiration Date Visits Re quested Visits Authorized [id number] Closed 10/22/2024 02/19/2025 1 1 Source Comments (unrecognize d section and content) In the event this informatio n is protected by the Federal Confidentiality of Alcohol and Drug Abuse Patient Records regulations: The Federal rules restrict any use of the information to criminally investigate or prosecute any alcohol or drug abuse patient.[facility] the event this information is protected by the Federal Confidentiality of Alcohol and Drug Abuse Patient Records regulations: The Federal rules restrict any use of the information to criminally investigate or prosecute any alcohol or drug abuse patient.[facility]In the event this information is protected by the Federal Confidentiality of Alcohol and Drug Abuse Patient Records regulations: The Federal rules restrict any use of the information to criminally investigate or prosecute any alcohol or drug abuse patient.[facility]In the event this information is protected by the Federal Confidentiality of Alcohol and Drug Abuse Patient Records regulations: The Federal rules restrict any use of the information to criminally investigate or prosecute any alcohol or drug abuse patient.[facility] FOR RECORDS PERTAINING TO PATIENTS WHO ARE [...] BE BASED ON THE PRIMARY CLINICAL RECORDS. [facility]. provides no warranty or guarantee of the accuracy or completeness of information in this document.
--- NOTE | 2024-12-21 06:55 | ECHOD_ITS ---
Reason For Study Reason For Study: Murmur Procedure This was a 2D Doppler, Color Flow transthoracic echocardiogram. Exam performed in department. Left Ventricle Normal LV size. Mild concentric left ventricular hypertrophy. Left ventricular systolic function is normal. The left ventricular ejection fraction is 65 %. Stage 1 diastolic dysfunction. No regional wall motion abnormalities noted. Right Ventricle Normal RV size. Normal systolic function. Atria Normal left atrium. Normal right atrium. Mitral Valve Normal mitral valve. Mild (1+) eccentric mitral valve insufficiency. Tricuspid Valve Normal tricuspid valve. Mild (1+) tricuspid valve insufficiency. Pulmonary artery systolic pressure is 26 mmHg. Aortic Valve Trisinus/trileaflet aortic valve. Pulmonic Valve Normal pulmonic valve. Great Vessels Normal aortic root. Pericardium/Pleural No pericardial effusion. MMode/2D Measurements & Calculations LVIDd: 4.8 cm IVSd: 1.2 cm Ao root diam: 3.1 cm LVIDs: 2.6 cm LVPWd: 1.2 cm RVDd: 4.1 cm FS: 46.6 % LAV(MOD-bp): 47.3 ml LVAd ap4: 30.1 cm2 SV(MOD-sp4): 61.5 ml LAV(MOD-bp) Indexed: 19.5 ml/m2 LVLd ap4: 7.9 cm SI(MOD-sp4): 25.4 ml/m2 LAV(MOD-sp2): 35.9 ml EDV(MOD-sp4): 93.6 ml LAV(MOD-sp4): 50.2 ml EDV(sp4-el): 97.6 ml LVAs ap4: 15.8 cm2 LVLs ap4: 6.4 cm ESV(MOD-sp4): 32.1 ml ESV(sp4-el): 32.9 ml EF(MOD-sp4): 65.7 % EF(sp4-el): 66.3 % SV(sp4-el): 64.7 ml LA A4 area: 19.1 cm2 LA dimension(2D): 5.0 cm RA A4 area: 18.5 cm2 TAPSE: 2.3 cm Time Measurements MV dec time: 0.23 sec Doppler Measurements & Calculations MV E max vicente: 59.6 cm/sec Lat Peak E' Vicente: 8.3 cm/sec Med Peak E' Vicente: 5.5 cm/sec MV A max vicente: 83.2 cm/sec E/E' lat: 7.2 E/E' med: 10.9 MV E/A: 0.72 Ao V2 max: 124.6 cm/sec LV V1 max: 102.4 cm/sec MV dec slope: 263.4 cm/sec2 Ao max P.2 mmHg LV V1 max P.2 mmHg Ao V2 mean: 96.0 cm/sec Ao mean P.9 mmHg Ao V2 VTI: 24.9 cm PA V2 max: 101.4 cm/sec TR max vicente: 238.0 cm/sec TR max P.0 mmHg ECHO/Echo Complete Interpretation Summary Normal LV size. Mild concentric left ventricular hypertrophy. Left ventricular systolic function is normal. The left ventricular ejection fraction is 65 %. Stage 1 diastolic dysfunction. Pulmonary artery systolic pressure is 26 mmHg. Ordering Physician: Bailey Kerr Referring Physician: Aissatou Webster Performed By: Jen Yang, MINERVA, RVT
--- NOTE | 2024-12-21 09:23 | STRESSREP_ITS ---
Stress Test Report Exercise myocardial perfusion stress test. 74-year-old man with a history of dyspnea on exertion. Stress protocol: Resting EKG demonstrates normal sinus rhythm with a rate of 57 bpm resting blood pressure is 140/72 mmHg. The patient exercised according to the regular Ramírez protocol for a total duration of 8 minutes attaining a maximum heart rate of 137 bpm which was 94% of maximum predicted heart rate; the maximum workload was 10.1 metabolic equivalents. At rest there were no ST or T wave changes noted to suggest ischemia and at peak exercise upsloping ST changes only were noted which did not meet the criteria for ischemia. No clinical angina was noted the test was terminated due to the target heart rate being achieved/fatigue. The peak blood pressure was 208/68 mmHg. Rate-pressure product was 23,500. Myocardial perfusion protocol. 14.7 mCi of technetium 99m sestamibi was injected at rest. The patient exercised according to regular Ramírez protocol for total duration of 8 minutes and at peak exercise 44 mCi of technetium 99m sestamibi was injected stress images were obtained stress and rest images were reconstructed in comparing the short axis vertical long and horizontal long axis. Gated images were also obtained. Perfusion SPECT analysis: Review of the stress images demonstrate normal uptake of tracer noted in all ar eas of the myocardium. The resting images similarly demonstrate normal uptake of tracer noted in all areas of the myocardium. No areas of reversibility are noted to suggest ischemia no previous infarct was noted. Gated SPECT analysis: The gated ejection fraction is 70%. Conclusion: Normal exercise myocardial perfusion stress test at a high workload. No arrhythmias noted
== END | disposition home or self-care (01) ==
PROVIDERS: PCP Nurse Practitioner Family; Referring Provider Physician Assistant Medical; Visit Provider Physician Assistant Medical
DX: I34.0 Nonrheumatic mitral (valve) insufficiency (principal); I48.0 Paroxysmal atrial fibrillation; R06.09 Other forms of dyspnea
CPT/HCPCS: 78452; 93017; 93306; A9500; A4216